=== PATIENT | female | born 1960 | race Hispanic/Latino ===

== ENCOUNTER 2016-12-27 14:53 | Inpatient (IN) | payer MEDICARE, MEDICAID ==
[2016-12-27 15:50] LABS: ADD MANUAL DIFF? NO
[2016-12-27 15:57] LABS: BASO # 0.02 K/mm3 (0.0-2.0); BASO % 0.3 % (0.0-3.0); EOS # 0.1 (0.0-0.7); EOS % 1.2 % (1.5-5.0); GRAN # 4.66 (1.4-6.5); GRAN % 76.9 % (50.0-68.0); HEMATOCRIT 46.9 % (36.0-48.0); LYMPH % 16.5 % (22.0-35.0); MEAN CELL VOLUME 98.1 fL (80.0-105.0); MEAN CORPUSCULAR HEMOGLOBIN 29.5 pg (25.0-35.0); MEAN CORPUSCULAR HGB CONC 30.1 g/dl (31.0-37.0); MEAN PLATELET VOLUME 12.2 fl (7.0-11.0); MONO # 0.3 (0.1-0.6); MONO % 5.1 % (1.0-6.0); PLATELET COUNT 256 10^3/uL (120.0-450.0); RED CELL DISTRIBUTION WIDTH 15.7 % (11.5-14.5); WHITE BLOOD COUNT 6.1 10^3/ul (4.5-11.0)
--- NOTE | 2016-12-27 16:03 | ED PDOC ---
Arrival/HPI - General Chief Complaint: High Blood Sugar Time Seen by Provider: 12/27/16 15:41 Historian: Patient - History of Present Illness Narrative History of Present Illness (Text): 12/27/16 15:46 A 56 year old female, whose past medical history includes myotonic dystrophy and diabetes, presents to the emergency department via EMS for hypoglycemia. Patient reports her blood sugar was 34 at home. She states she did have a orange juice and some peanut butter before coming to the emergency department but she did not take her insulin today. Patient currently complaining of generalized fatigue that began this morning and feel cold. She denies any chest pain, shortness of breath, abdominal pain, nausea, vomiting, or any other complaints at this time. PMD: Dr. Purdy Time/Duration: Prior to Arrival Symptom Onset: Sudden Symptom Course: Unchanged Quality: Other Activities at Onset: Rest Context: Home Past Medical History - Provider Review Nursing Documentation Reviewed: Yes - Infectious Disease Hx of Infectious Diseases: None - Tetanus Immunization Tetanus Immunization: Unknown - Reproductive Menopause: Yes - Cardiac Hx Cardiac Disorders: No - Pulmonary Hx Respiratory Disorders: Yes Hx Chronic Obstructive Pulmonary Disease (COPD): Yes - Neurological Hx Neurological Disorder: No - HEENT Hx HEENT Disorder: Yes (eyeglasses) Hx Cataracts: Yes (bilateral cataract surgery) Other/Comment: removal of macular pocket of right eye/ jaw sx - Renal Hx Renal Disorder: No - Endocrine/Metabolic Hx Endocrine Disorders: Yes Hx Diabetes Mellitus Type 2: Yes Hx Hypothyroidism: Yes - Hematological/Oncological Hx Blood Disorders: Yes Hx Anemia: Yes Hx Cancer: Yes (2011 Rectal CA) Hx Chemotherapy: Yes (2011) - Integumentary Hx Dermatological Disorder: No Hx Basal Cell Carcinoma: No Hx Eczema: No Hx Melanoma: No Hx Psoriasis: No Hx Squamous Cell Carcinoma: No Other/Comment: dry skin to feet, multiple surgical scars to abd - Musculoskeletal/Rheumatological Hx Musculoskeletal Disorders: Yes Hx Falls: Yes - Gastrointestinal Hx Gastrointestinal Disorders: Yes (RECTAL CA WAS ON CHEMO,HAD SX,PEG IN AND OUT ) - Genitourinary/Gynecological Hx Genitourinary Disorders: Yes (UTI) - Psychiatric Hx Psychophysiologic Disorder: No Hx Substance Use: No - Surgical History Hx Cholecystectomy: Yes Hx Hysterectomy: Yes (2005) - Anesthesia Hx Anesthesia Reactions: No Hx Malignant Hyperthermia: No - Suicidal Assessment Feels Threatened In Home Enviroment: No Family/Social History - Physician Review Nursing Documentation Reviewed: Yes Family/Social History: Unknown Family HX Smoking Status: Never Smoked Hx Alcohol Use: No Hx Substance Use: No Hx Substance Use Treatment: No Allergies/Home Meds Allergies/Adverse Reactions: Allergies Penicillins Allergy (Verified 08/04/16 11:24) ANGIOEDEMA Home Medications: Home Meds Medication Instructions Recorded Confirmed Albuterol Sulfate [Proair Hfa] 1 puff IH PRN PRN 04/09/15 08/11/16 Review of Systems - Physician Review All systems were reviewed & negative as marked: Yes - Review of Systems Constitutional: Fatigue, Other (feeling cold) Respiratory: absent: SOB Cardiovascular: absent: Chest Pain Gastrointestinal: absent: Abdominal Pain, Nausea, Vomiting Endocrine: Other (hypoglyemia) Physical Exam Vital Signs Reviewed: Yes Vital Signs Temp Pulse Resp BP Pulse Ox 12/27/16 17:17 66 18 120/60 100 12/27/16 15:47 96.1 F L 12/27/16 15:26 99.1 F 12/27/16 15:00 61 22 114/63 82 L Temperature: Hypothermic (96.1 rectal) Blood Pressure: Normal Pulse: Regular Respiratory Rate: Normal Appearance: Positive for: Ill-Appearing, Other Pain Distress: None Mental Status: Positive for: other (Mild-moderate lethargy but oriented x 3) Finger Stick Blood Glucose: 83 - Systems Exam Head: Present: Atraumatic, Normocephalic Pupils: Present: PERRL Conjunctiva: Present: Normal Mouth: Present: Dry Pharnyx: Present: Normal. No: ERYTHEMA, EXUDATE Neck: Present: Normal Range of Motion Respiratory/Chest: Present: Decreased Breath Sounds. No: Respiratory Distress, Accessory Muscle Use Cardiovascular: Present: Regular Rate and Rhythm, Normal S1, S2. No: Murmurs Abdomen: Present: Normal Bowel Sounds. No: Tenderness, Distention, Peritoneal Signs Back: Present: Normal Inspection Upper Extremity: Present: Normal Inspection. No: Cyanosis, Edema Lower Extremity: Present: Normal Inspection. No: Edema Neurological: Present: GCS=15, CN II-XII Intact, Speech Normal Skin: Present: Warm, Dry, Normal Color. No: Rashes Psychiatric: Present: Oriented x 3, Lethargic Medical Decision Making ED Course and Treatment: 12/27/16 15:46 Impression: A 56 year old female with generalized weakness and a low blood sugar at home Differential Diagnosis include but are not limited to: hypoglycemia vs hypothermia/sepsis Plan: -- Labs -- Urinalysis -- Reassess and disposition Prior Visits: Notes and results from previous visits were reviewed. The patient last presented to the emergency department on 08/04/16 for evaluation of hypoglycemia. Progress Notes: 12/27/16 17:44 Patient with CO2 retention on ABG. Patient placed on Bi-Pap and will need admission. Case discussed with Dr. Contreras, who is covering for Dr. Purdy. He is requesting patient be evaluated by Human Resources Receptionist. Case discussed with Dr. Dey from ICU, he states he will come down an evaluate the patient. 12/27/16 17:47 Dr. Dey evaluated the patient. He accepts the patient to ICU. 12/27/16 18:53 Patient also given steroids and nebs. 12/27/16 18:56 CXR with poor inspiration and appears similar to previous. - Critical Care Critical Care Minutes: 30 minutes - Lab Interpretations Lab Results: 12/27/16 15:30 12/27/16 15:30 Lab Results 12/27/16 16:10: pCO2 75 H*, pO2 60.0 L, HCO3 35.2 H, ABG pH 7.28 L, ABG Total CO2 37.5 H, ABG O2 Saturation 92.6 L, ABG Base Excess 5.9 H, ABG Potassium 4.9, Glucose 169 H, Lactate 2.1, FiO2 40.0, Sodium 139.0, Chloride 106.0, Arterial Blood Potassium 4.9 12/27/16 15:30: Sodium 140, Potassium 5.9 H*, Chloride 97, Carbon Dioxide 38 H, Anion Gap 11, BUN 36 H, Creatinine 0.9, Est GFR ( Amer) > 60, Est GFR ( Non-Af Amer) > 60, Random Glucose 124 H, Calcium 10.4, Total Bilirubin 0.3, AST 57 H, ALT 27, Alkaline Phosphatase 56, Lactate Dehydrogenase 341, Total Creatine Kinase < 20 L, Troponin I < 0.01, NT-Pro-B Natriuret Pep 154, Total Protein 7.0, Albumin 3.9, Globulin 3.1, Albumin/Globulin Ratio 1.3, Lipase 79 12/27/16 15:30: PT 11.0, INR 1.02, APTT 25.6 12/27/16 15:30: WBC 6.1, RBC 4.78, Hgb 14.1, Hct 46.9, MCV 98.1, MCH 29.5, MCHC 30.1 L, RDW 15.7 H, Plt Count 256, MPV 12.2 H, Gran % 76.9 H, Lymph % (Auto) 16.5 L, [place] % (Auto) 5.1, Eos % (Auto) 1.2 L, Baso % (Auto) 0.3, Gran # 4.66, Lymph # 1.0 L, [place] # 0.3, Eos # 0.1, Baso # 0.02 I have reviewed the lab results: Yes - Medication Orders Current Medication Orders: Sodium Chloride (Sodium Chloride 0.9%) 1,000 mls @ 100 mls/hr IV .Q10H STA Stop: 12/28/16 02:49 Last Admin: 12/27/16 17:17 Dose: 100 mls/hr Discontinued Medications Ipratropium [place] (Atrovent) 0.5 mg IH STAT STA Stop: 12/27/16 17:43 Last Admin: 12/27/16 18:25 Dose: 0.5 mg Ipratropium [place] (Atrovent) 0.5 mg IH STAT STA Stop: 12/27/16 17:44 Last Admin: 12/27/16 18:36 Dose: 0.5 mg Levalbuterol HCl (Xopenex) 1.25 mg IH STAT STA Stop: 12/27/16 17:43 Last Admin: 12/27/16 18:11 Dose: 1.25 mg Levalbuterol HCl (Xopenex) 1.25 mg IH STAT STA Stop: 12/27/16 17:43 Last Admin: 12/27/16 18:00 Dose: 1.25 mg Methylprednisolone (Solu-Medrol) 125 mg IVP STAT STA Stop: 12/27/16 17:44 Last Admin: 12/27/16 18:12 Dose: 125 mg Sodium Polystyrene Sulfonate (Kayexalate Oral Susp) 30 gm PO STAT STA Stop: 12/27/16 16:51 Last Admin: 12/27/16 17:12 Dose: 30 gm - Scribe Statement The provider has reviewed the documentation as recorded by the Scribe Dimpal Nguyen Provider Kurtis Attestation: All medical record entries made by the Kurtis were at my direction and personally dictated by me. I have reviewed the chart and agree that the record accurately reflects my personal performance of the history, physical exam, medical decision making, and the department course for this patient. I have also personally directed, reviewed, and agree with the discharge instructions and disposition. Disposition/Present on Arrival - Present on Arrival Any Indicators Present on Arrival: No History of DVT/PE: No History of Uncontrolled Diabetes: No Urinary Catheter: No History of Decub. Ulcer: No History Surgical Site Infection Following: None - Disposition Have Diagnosis and Disposition been Completed?: Yes Diagnosis: CO2 retention, Altered mental status Disposition: HOSPITALIZED Disposition Time: 17:48 Patient Plan: Admission, ICU Condition: SERIOUS
[2016-12-27 16:07] LABS: INR 1.02 (0.93-1.08); PARTIAL THROMBOPLASTIN TIME 25.6 Seconds (23.7-30.8)
[2016-12-27 16:29] LABS: ARTERIAL BLOOD GAS HCO3 35.2 mmol/L (21-28); ARTERIAL BLOOD GAS PH 7.28 (7.35-7.45)
[2016-12-27 16:41] LABS: ALB/GLOB RATIO 1.3 (1.1-1.8); ALKALINE PHOSPHATASE 56 U/L (38-133); ALT/SGPT 27 U/L (7-56); AST/SGOT 57 U/L (15-39); BILIRUBIN,TOTAL 0.3 mg/dL (0.2-1.3); BLOOD UREA NITROGEN 36 mg/dL (7-21); CALCIUM 10.4 mg/dL (8.4-10.5); CARBON DIOXIDE 38 mmol/L (21-33); CHLORIDE 97 mmol/L (95-110); GFR AFRICAN-AMERICAN > 60; GLUCOSE,RANDOM 124 mg/dL (70-110); LIPASE 79 U/L (23-300); SODIUM 140 mmol/L (132-148)
[2016-12-27 16:49] LABS: POTASSIUM 5.9 mmol/L (3.6-5.0)
[2016-12-27] MEDS ORDERED: Sod Polystyrene Sulf 15 gm/60 ml Oral Susp PO STA (16:50)
[2016-12-27] MEDS ORDERED: Sodium Chloride 0.9% 1,000 ML IV STA (16:50)
[2016-12-27 17:10] LABS: TROPONIN I < 0.01 ng/mL
[2016-12-27] MEDS ORDERED: Levalbuterol 1.25 MG/3 ML Inhal Soln UD IH STA ×2 (17:42)
[2016-12-27] MEDS ORDERED: Ipratropium 0.02% Inhal Soln (0.5 mg/2.5 ml) UD IH STA ×2 (17:42→17:43)
[2016-12-27] MEDS ORDERED: Albuterol-Ipratrop 3 mg / 0.5 (3 ml) UD IH PRN (20:55)
[2016-12-27 21:20] VITALS: BMI 27.9
--- NOTE | 2016-12-27 21:43 | CP.PCM.HP ---
<Kaushik Penaloza - Last Filed: 12/27/16 22:47> History of Present Illness - History of Present Illness History of Present Illness: 56 year old female with past medical history of mytonic dysthrophy type 1, diabetes, COPD, hypothyroidism, and rectal cancer s/p resection and chemo presents to [facility] ED via EMS for hypoglycemia, generalized fatigue and feeling cold. Patient reports her blood sugar to be 34 at home this morning. She soon gave herself orange juice and peanut butter. Patients states around 2pm this afternoon, she had to put on 4 layers of blanket because she was feeling cold. In the ED patient was found to be hypercarbic on ABG (pCO2 75) and potassium of 5.9. Patient was soon started on BIBPAP and given kayexalate. Patient was last hospitalized on 08/04/16 for hypoglycemia, bacteremia and UTI. Patient uses BIPAP machine at night time and is wheelchair bound at home. Patient denies having headache, loss of consciousness, fever, shortness of breath, coughs, chest pain, palpitations, abdominal pain, nausea, vomiting, diarrhea, or urinary symptoms. PMD: Dr. Purdy PMH: mytonic dysthrophy type 1, diabetes, COPD, hypothyroidism, rectal cancer PSH: trach placement, peg placement, ileostomy, ileostomy reversal and anastomosis Allergy: Penicillin Social Hx: Denies tobacco, alcohol or other drug use Family Hx: unknown Meds: levemir, pulmicort, proair Hfa Present on Admission - Present on Admission Any Indicators Present on Admission: No History of DVT/PE: No History of Uncontrolled Diabetes: No Review of Systems - Constitutional Constitutional: As Per HPI, Chills, Fatigue. absent: Headache - EENT Eyes: As Per HPI. absent: Blurred Vision, Change in Vision, Loss of Vision Ears: As Per HPI. absent: Dizziness Nose/Mouth/Throat: As Per HPI. absent: Epistaxis - Cardiovascular Cardiovascular: As Per HPI. absent: Chest Pain, Chest Pain at Rest, Chest Pain with Activity, Diaphoresis, Dyspnea - Respiratory Respiratory: As Per HPI. absent: Cough, Dyspnea, Hemoptysis - Gastrointestinal Gastrointestinal: As Per HPI. absent: Abdominal Pain, Diarrhea, Nausea, Vomiting - Genitourinary Genitourinary: As Per HPI - Musculoskeletal Musculoskeletal: As Per HPI. absent: Back Pain, Deformity, Numbness, Tingling - Integumentary Integumentary: As Per HPI. absent: Acne, Lesions - Neurological Neurological: As Per HPI, Weakness. absent: Abnormal Speech, Headaches, Vertigo - Psychiatric Psychiatric: As Per HPI. absent: Confusion, Irritability - Endocrine Endocrine: As Per HPI, Cold Intolorance, Fatigue Additional Comments: hypoglycemia - Hematologic/Lymphatic Hematologic: As Per HPI Past Patient History - Infectious Disease Hx of Infectious Diseases: None - Tetanus Immunizations Tetanus Immunization: Unknown - Past Social History Smoking Status: Never Smoked - CARDIAC Hx Cardiac Disorders: No - PULMONARY Hx Respiratory Disorders: Yes Hx Chronic Obstructive Pulmonary Disease (COPD): Yes - NEUROLOGICAL Hx Neurological Disorder: No - HEENT Hx HEENT Problems: Yes (eyeglasses) Hx Cataracts: Yes (bilateral cataract surgery) Other/Comment: removal of macular pocket of right eye/ jaw sx - RENAL Hx Chronic Kidney Disease: No - ENDOCRINE/METABOLIC Hx Endocrine Disorders: Yes Hx Diabetes Mellitus Type 2: Yes Hx Hypothyroidism: Yes - HEMATOLOGICAL/ONCOLOGICAL Hx Blood Disorders: Yes Hx Anemia: Yes Hx Cancer: Yes (2011 Rectal CA) Hx Chemotherapy: Yes (2011) - INTEGUMENTARY Hx Dermatological Problems: No Hx Basil Cell: No Hx Eczema: No Hx Melanoma: No Hx Psoriasis: No Hx Squamous Cell: No Other/Comment: dry skin to feet, multiple surgical scars to abd - MUSCULOSKELETAL/RHEUMATOLOGICAL Hx Musculoskeletal Disorders: Yes Hx Falls: Yes - GASTROINTESTINAL Hx Gastrointestinal Disorders: Yes (RECTAL CA WAS ON CHEMO,HAD SX,PEG IN AND OUT ) - GENITOURINARY/GYNECOLOGICAL Hx Genitourinary Disorders: Yes (UTI) - PSYCHIATRIC Hx Psychophysiologic Disorder: No Hx Substance Use: No - SURGICAL HISTORY Hx Cholecystectomy: Yes Hx Hysterectomy: Yes (2005) - ANESTHESIA Hx Anesthesia Reactions: No Hx Malignant Hyperthermia: No Meds Allergies/Adverse Reactions: Allergies Allergy/AdvReac Type Severity Reaction Status Date / Time Penicillins Allergy ANGIOEDEMA Verified 08/04/16 11:24 Physical Exam - Constitutional Appears: No Acute Distress, Chronically Ill - Head Exam Head Exam: ATRAUMATIC, NORMOCEPHALIC - Eye Exam Eye Exam: EOMI, Normal appearance, PERRL - ENT Exam ENT Exam: Mucous Membranes Moist - Neck Exam Neck exam: Positive for: Normal Inspection - Respiratory Exam Respiratory Exam: Clear to Auscultation Bilateral, NORMAL BREATHING PATTERN. absent: Wheezes, Respiratory Distress - Cardiovascular Exam Cardiovascular Exam: REGULAR RHYTHM, RRR, +S1, +S2 - GI/Abdominal Exam GI & Abdominal Exam: Normal Bowel Sounds, Soft. absent: Tenderness - Extremities Exam Extremities exam: Positive for: normal capillary refill, normal inspection, pedal pulses present. Negative for: tenderness - Back Exam Back exam: NORMAL INSPECTION - Neurological Exam Neurological exam: Alert, Oriented x3 - Psychiatric Exam Psychiatric exam: Normal Affect, Normal Mood - Skin Skin Exam: Dry, Intact, Normal Color Additional comments: cool to touch Results - Vital Signs Recent Vital Signs: Last Vital Signs Temp 96.1 F L 12/27/16 15:47 Pulse 67 12/27/16 20:30 Resp 18 12/27/16 17:17 BP 120/60 12/27/16 17:17 Pulse Ox 100 12/27/16 17:17 - Labs Result Diagrams: 12/27/16 15:30 12/27/16 15:30 Assessment & Plan - Assessment and Plan (Free Text) Assessment: 56 year old female with past medical history of myotonic dystrohpy, diabetes, COPD presents with hypoglycemia, generalized fatigue and feeling cold was admitted to ICU for hypercapnic respiratory failure secondary to COPD exacerbation Plan: Hypercarbic respiratory failure -Secondary to COPD exacerbation vs sepsis -ABG 7.28/75/60/35.2/12.1/92.6 -Continue BIPAP -Duoneb 3ml IH Q4 damien/Q2 prn -Solu-medrol 40mg Q8 -Resume pulmicort 0.5mg BID -Levaquin 500mg iv daily -CXR grossly unchanged from previous -Follow up blood, urine cultures -Follow up procalcintonin -Follow up ABG repeats -Pulmonary consult, Dr. Leyva help appreciated Hypoglycemia -Patient self reported FS glucose 34 at home -Random glucose at ED 124 -Continue to monitor Hyperkalemia -Potassium 5.9 -Kayexalate 30gm given in ED -Duoneb 3ml IH Q4 damien/Q2 prn Diabetes -Resume levemir HS, hold if hypoglycemia persists -ISS -FS Q4 -Consistent Carb diet Prophylactic measures -Protonix for GI ppx -Lovenox for DVT ppx <Brittany ALEXANDER,Soham - Last Filed: 01/04/17 06:28> Results - Vital Signs Recent Vital Signs: Last Vital Signs Temp 97 F L 01/01/17 15:53 Pulse 70 01/01/17 15:53 Resp 18 01/01/17 15:53 BP 103/73 01/01/17 15:53 Pulse Ox 95 01/01/17 15:53 - Labs Result Diagrams: 01/01/17 06:00 01/01/17 06:00 Attending/Attestation - Attestation I have personally seen and examined this patient.: Yes I have fully participated in the care of the patient.: Yes I have reviewed all pertinent clinical information: Yes Notes (Text): 01/04/17 06:27 -I agree with the above consult H&P completed by the resident physician.
[2016-12-27] MEDS: Insulin Detemir 100 units/ml Vial (Levemir) SC SCH (22:00)
[2016-12-27] MEDS: MethylPREDNISolone 40 mg Vial IVP SCH (22:01)
[2016-12-27 22:03] LABS: VENOUS BLOOD GAS BASE EXCESS 12.1 mmol/L (0.0-2.0); VENOUS BLOOD PH 7.39 (7.32-7.43)
[2016-12-28 00:56] LABS: URINE BILIRUBIN NEGATIVE (NEGATIVE); URINE BLOOD NEGATIVE (NEGATIVE); URINE GLUCOSE (UA) >=1000 mg/dL (NEGATIVE); URINE KETONE NEGATIVE (NEGATIVE); URINE LEUKOCYTE ESTERASE LARGE Leu/uL (NEGATIVE); URINE PROTEIN NEGATIVE mg/dL (<30 mg/dL); URINE UROBILINOGEN 0.2 E.U./dL (<1 E.U./dL)
[2016-12-28 01:04] LABS: URINE APPEARANCE CLOUDY (CLEAR); URINE COLOR YELLOW (YELLOW)
[2016-12-28 01:06] LABS: URINE BACTERIA MANY (NEG); URINE EPITHELIAL CELLS 0 - 2 /hpf (0-5); URINE RBC 0 - 2 /hpf (0-2); URINE WBC 20 - 25 /hpf (0-6)
[2016-12-28] MEDS: Albuterol-Ipratrop 3 mg / 0.5 (3 ml) UD IH SCH ×6 (04:40→20:05)
[2016-12-28] MEDS: Pantoprazole 40 mg EC Tab PO SCH (05:47)
[2016-12-28] MEDS: MethylPREDNISolone 40 mg Vial IVP SCH ×3 (05:47→22:09)
[2016-12-28 06:31] LABS: ARTERIAL BLOOD GAS HCO3 34.5 mmol/L (21-28); ARTERIAL BLOOD GAS O2 CAPACITY 15.8 mL/dl (16-24); ARTERIAL BLOOD GAS PH 7.36 (7.35-7.45); ARTERIAL BLOOD HGB O2 SAT 92.4 % (95.0-98.0); CARBOXYHEMOGLOBIN 1.4 % (0.5-1.5); METHEMOGLOBIN 1.1 % (0.0-3.0)
[2016-12-28 06:32] LABS: ADD MANUAL DIFF? NO
[2016-12-28 06:46] LABS: BASO # 0.01 K/mm3 (0.0-2.0); BASO % 0.2 % (0.0-3.0); GRAN % 87.1 % (50.0-68.0); HEMATOCRIT 42.1 % (36.0-48.0); LYMPH # 0.7 (1.2-3.4); LYMPH % 12.3 % (22.0-35.0); MEAN CELL VOLUME 97.2 fL (80.0-105.0); MEAN CORPUSCULAR HEMOGLOBIN 29.6 pg (25.0-35.0); MEAN CORPUSCULAR HGB CONC 30.4 g/dl (31.0-37.0); MEAN PLATELET VOLUME 12.3 fl (7.0-11.0); MONO % 0.4 % (1.0-6.0); PLATELET COUNT 266 10^3/uL (120.0-450.0); RED CELL DISTRIBUTION WIDTH 15.6 % (11.5-14.5); WHITE BLOOD COUNT 5.3 10^3/ul (4.5-11.0)
[2016-12-28 07:26] LABS: ALB/GLOB RATIO 1.1 (1.1-1.8); ALKALINE PHOSPHATASE 47 U/L (38-133); ALT/SGPT 30 U/L (7-56); AST/SGOT 53 U/L (15-39); BILIRUBIN,TOTAL 0.3 mg/dL (0.2-1.3); BLOOD UREA NITROGEN 27 mg/dL (7-21); CALCIUM 9.3 mg/dL (8.4-10.5); CARBON DIOXIDE 37 mmol/L (21-33); CHLORIDE 99 mmol/L (98-107); GFR AFRICAN-AMERICAN > 60; GLUCOSE,RANDOM 262 mg/dL (70-110); POTASSIUM 4.9 mmol/L (3.6-5.0); SODIUM 141 mmol/L (132-148); TOTAL PROTEIN 6.2 g/dL (5.8-8.3)
[2016-12-28] MEDS: Budesonide 0.5 mg/2 ml Inhal Susp UD IH SCH ×2 (07:50→20:05)
[2016-12-28] MEDS: levoFLOXacin 500 mg in D5W 500 MG/100 ML BAG IVPB SCH (09:55)
[2016-12-28] MEDS: Enoxaparin 40 mg Syringe SC SCH (09:55)
[2016-12-28] MEDS: Insulin Lispro (humaLOG) MEDIUM Coverage SC SCH ×4 (09:59→22:08)
--- NOTE | 2016-12-28 10:54 | RAD ---
HISTORY: alt ms COMPARISON: 08/10/2016 FINDINGS: LUNGS: Bibasilar linear atelectasis. Small lung volumes with elevation of the right hemidiaphragm PLEURA: No significant pleural effusion identified, no pneumothorax apparent. CARDIOVASCULAR: Normal. OSSEOUS STRUCTURES: No significant abnormalities. VISUALIZED UPPER ABDOMEN: Normal. OTHER FINDINGS: None. IMPRESSION: Linear atelectasis both lung bases
--- NOTE | 2016-12-28 11:07 | CARD ---
APPROVED REPORT EKG Measurement Heart [id number] <Conclusion> Sinus bradycardia with 1st degree AV block Anterolateral infarct, age undetermined Abnormal ECG
--- NOTE | 2016-12-28 11:57 | CON ---
DATE: 12/28/2016 We were asked by Dr. Purdy, game artist, to evaluate and treat this 56-year- old woman who is well known to our service from previous admissions with complex pulmonary problems. HISTORY OF PRESENT ILLNESS: The patient was admitted via Emergency Room and we are seeing her in the intensive care unit. The patient reported very low blood sugar of 34 at home in the morning. She was getting orange juice. That was followed by severe shaking chills. She was brought to the Emergency Room. She was hypercarbic with pCO2 of 75 and potassium of 5.9. She was started on BiPAP and was given Kayexalate. The patient was last hospitalized 4 months ago for hypoglycemia, bacteremia and urinary tract infection. She uses BiPAP machine at night. PAST MEDICAL HISTORY: Positive for myotonic dystrophy, type 1 diabetes, chronic obstructive pulmonary disease, hypothyroidism, and rectal cancer, status post resection and chemotherapy. FAMILY HISTORY: Negative for inherited diseases. SOCIAL HISTORY: She is a former smoker. Nondrinker. Never used illicit drugs. ALLERGIES: SHE REPORTS ALLERGY TO PENICILLIN WITH ANGIOEDEMA. REVIEW OF SYSTEMS: Conducted by reviewing all sources. EAR, NOSE, AND THROAT: No dizziness, no blurred vision, no epistaxis. CARDIOVASCULAR: No chest pain, no palpitations. RESPIRATORY: As per history of present illness. GASTROINTESTINAL: No nausea, vomiting or diarrhea. GENITOURINARY: No dysuria or hematuria. The rest of the systems were reviewed and found to be negative. PHYSICAL EXAMINATION: GENERAL: She is awake, alert, in no acute distress. VITAL SIGNS: Stable. Blood pressure 112/74, respirations 18, pulse is 84, oxygen saturation currently on nasal cannula is 95%. HEAD, EARS, NOSE AND THROAT: Normocephalic and atraumatic. Mucous membranes moist. LUNGS: Diminished breath sounds with a few coarse rhonchi, no wheezing. CARDIOVASCULAR: S1, S2, no S3, regular. GASTROINTESTINAL: Soft, nontender with no organomegaly. : Within normal limits EXTREMITIES: No pedal edema. SKIN: Clear with no cyanosis, no skin rashes. NEUROLOGIC: No focal deficits. LABORATORY DATA: I reviewed arterial blood gases which revealed acute on chronic respiratory acidosis with pH of 7.28, pCO2 of 75 and pO2 of 60. RADIOLOGY: I also reviewed her chest x-ray which is unchanged from previous admission. ASSESSMENT AND PLAN: COPD, Resp Insufficiency, Hypoglycemia. The patient was started on BiPAP. DuoNeb inhalations every 4 hours were added. We will treat with Brovana and budesonide by inhalations later after DuoNeb worked. The patient will be treated for her severe hypoglycemia. She probably will be able to leave intensive care unit today or tomorrow in a.m. Nayan Disla MD cc: [id number] TT: 12/28/2016 11:56:33 Confirmation # [id number] Dictation # [id number] tn MTDD
[2016-12-28] MEDS: Insulin Detemir 100 units/ml Vial (Levemir) SC SCH (22:08)
[2016-12-29] MEDS: Albuterol-Ipratrop 3 mg / 0.5 (3 ml) UD IH SCH ×6 (00:26→23:59)
--- NOTE | 2016-12-29 01:39 | CON ---
DATE: 12/28/2016 HISTORY OF PRESENT ILLNESS: The patient is a 56-year-old lady with history of type 1 myotonic dystrophy, and COPD, who presented with acute respiratory acidosis and CO2 retention, as well as hypoglycemia. The patient was started on nebulizers, steroids, and antibiotics. Her hypoglycemia was corrected. ICU was consulted for further management and monitoring. No nausea. No vomiting. No diarrhea. No constipation. PAST MEDICAL HISTORY: Myotonic dystrophy, type 1. Diabetes. Chronic obstructive pulmonary disease. Hypothyroidism. History of rectal cancer status post resection and chemotherapy. FAMILY HISTORY: Noncontributory. SOCIAL HISTORY: The patient is an ex-smoker. No alcohol. No illicit drug abuse. REVIEW OF SYSTEMS: Review of 12-organ system, other than mentioned in history of present illness, is negative. ALLERGIES: PENICILLINS. PHYSICAL EXAMINATION: VITAL SIGNS: Temperature 97.7, blood pressure 99/61, respiratory rate 20, oxygen saturation 94% on room air. HEAD AND NECK: Atraumatic. LUNGS: Clear to auscultation bilaterally. HEART: Regular rate any rhythm. S1, S2 normal. ABDOMEN: Soft, nontender, nondistended. MUSCULOSKELETAL: Consistent with myotonic dystrophy. SKIN: Moist. PSYCHIATRIC: The patient is alert and oriented x 3. LABORATORY DATA: WBC 5.3, hemoglobin 12.8, platelet count 266. Sodium 141, potassium 4.9, chloride 99, BUN 27, creatinine 0.8, glucose 268. Procalcitonin less than 0.05. Initial blood gas was 7.28, pCO2 75, pO2 60. Today's blood gas 7.36, pCO2 61 and pO2 63. MEDICATIONS: Tylenol p.r.n., DuoNeb p.r.n. and every 4 hours, Pulmicort, Lovenox, Levemir, regular insulin sliding scale medium protocol, levofloxacin, Solu-Medrol 40 mg IV q. 8, Protonix. Chest x-ray showed right lower lobe infiltrate/atelectasis. ASSESSMENT AND PLAN: This is a 56-year-old lady, who presented with chronic obstructive pulmonary disease exacerbation, acute respiratory acidosis, and CO2 retention. She substantially improved on steroid taper, nebulizers, antibiotics , and BiPAP application. At present time, she is alert, awake, and oriented x 3. I will continue to maintain euvolemia, euglycemia, normothermia, and oxygen saturation more than 90 %. We will continue with deep venous thrombosis and gastrointestinal prophylaxis. ccm time 40 min Lisandro Dey MD cc: [id number] TT: 12/29/2016 01:38:10 Confirmation # [id number] Dictation # [id number] tn MTDD
[2016-12-29] MEDS: Pantoprazole 40 mg EC Tab PO SCH (06:32)
[2016-12-29 06:52] LABS: ADD MANUAL DIFF? NO
[2016-12-29 07:02] LABS: GRAN # 5.68 (1.4-6.5); GRAN % 86.9 % (50.0-68.0); HEMATOCRIT 39.3 % (36.0-48.0); LYMPH # 0.7 (1.2-3.4); LYMPH % 10.3 % (22.0-35.0); MEAN CELL VOLUME 96.8 fL (80.0-105.0); MEAN CORPUSCULAR HEMOGLOBIN 29.1 pg (25.0-35.0); MEAN PLATELET VOLUME 12.1 fl (7.0-11.0); MONO # 0.2 (0.1-0.6); MONO % 2.8 % (1.0-6.0); PLATELET COUNT 247 10^3/uL (120.0-450.0); RED CELL DISTRIBUTION WIDTH 15.9 % (11.5-14.5); WHITE BLOOD COUNT 6.5 10^3/ul (4.5-11.0)
[2016-12-29 07:10] LABS: ALB/GLOB RATIO 1.2 (1.1-1.8); ALKALINE PHOSPHATASE 45 U/L (38-133); ALT/SGPT 32 U/L (7-56); AST/SGOT 43 U/L (15-39); BILIRUBIN,TOTAL 0.3 mg/dL (0.2-1.3); BLOOD UREA NITROGEN 39 mg/dL (7-21); CALCIUM 9.4 mg/dL (8.4-10.5); CARBON DIOXIDE 33 mmol/L (21-33); CHLORIDE 99 mmol/L (98-107); GFR AFRICAN-AMERICAN > 60; SODIUM 139 mmol/L (132-148)
[2016-12-29 07:18] LABS: GLUCOSE,RANDOM 339 mg/dL (70-110)
[2016-12-29] MEDS: Budesonide 0.5 mg/2 ml Inhal Susp UD IH SCH ×2 (07:30→20:37)
[2016-12-29] MEDS: Insulin Lispro (humaLOG) MEDIUM Coverage SC SCH ×4 (08:18→22:12)
--- NOTE | 2016-12-29 08:44 | PN ---
DATE: 12/29/2016 SUBJECTIVE: The patient appears comfortable this morning. She is not short of breath at rest. PHYSICAL EXAMINATION: VITAL SIGNS (last noted in the computer): Temperature is 97.7, pulse is 77, respirations 20, blood pressure 99/61. Oxygen saturation on nasal cannula is 94 %. HEENT: Normocephalic, atraumatic. No JVD. CARDIOVASCULAR: Positive S1, S2. No S3. LUNGS: Decreased breath sounds at the bases. Minimal rhonchi. No wheezing. EXTREMITIES: Mild edema. No cyanosis, no clubbing. Calves are nontender to palpation. GASTROINTESTINAL: Abdomen is soft, nontender, nondistended. Bowel sounds are positive. SKIN: No acute rash. NEUROLOGIC: Limited at the present time. IMPRESSION: 1. Acute bronchitis. 2. Chronic obstructive pulmonary disease. 3. Myotonic dystrophy. 4. Chronic respiratory insufficiency. PLAN: The patient appears comfortable this morning. She is not short of breath at rest. She is awake and alert. She states she is feeling much better overall. I did discuss the case with the night nurse at length. The night nurse stated that the patient had a good night, and did wear her BiPAP for 6 hours. I commended the patient on her usage. On physical exam, no significant bronchospasm is noted. I will continue with the current nebulizer treatments and decrease the intravenous steroids this morning. The patient also remains on antibiotic therapy. There are no temperatures noted. There is no leukocytosis. Clinical status of the patient is certainly improved - compared to the initial presentation. However, the overall status/prognosis for this patient - with advanced myotonic dystrophy - does remain very guarded. I will discuss the above with the attending physician. Adam Leyva MD cc: [id number] TT: 12/29/2016 08:44:03 Confirmation # [id number] Dictation # [id number] sarah DELAROSA
[2016-12-29] MEDS: levoFLOXacin 500 mg in D5W 500 MG/100 ML BAG IVPB SCH (10:04)
[2016-12-29] MEDS: Enoxaparin 40 mg Syringe SC SCH (10:04)
[2016-12-29] MEDS: MethylPREDNISolone 40 mg Vial IVP SCH ×2 (10:05→21:57)
--- NOTE | 2016-12-29 13:06 | CP.PCM.PN ---
<Valerie Peters - Last Filed: 12/29/16 17:37> Subjective - Date & Time of Evaluation Date of Evaluation: 12/29/16 Time of Evaluation: 07:20 - Subjective Subjective: Medicien progress note for Dr Purdy and Dr Samson service. Patient with no acute events overnight,. Transferred from ICU. Used bipap at night. Denies fever, chills, n/v/d. Denies cp or sob. Objective - Vital Signs/Intake and Output Vital Signs (last 24 hours): Temp Pulse Resp BP Pulse Ox 97 F L 66 20 106/64 94 L 12/29/16 08:55 12/29/16 08:55 12/29/16 08:55 12/29/16 08:55 12/29/16 08:55 Intake and Output: 12/29/16 12/29/16 06:59 18:59 Intake Total 720 Balance 720 - Medications Medications: Current Medications Acetaminophen (Tylenol 325mg Tab) 650 mg PO Q4H PRN PRN Reason: Fever >100.4 F Albuterol/Ipratropium (Duoneb 3 Mg/0.5 Mg (3 Ml) Ud) 3 ml IH [id number] PENDING SALE TO [facility] Last Admin: 12/29/16 11:30 Dose: 3 ml Albuterol/Ipratropium (Duoneb 3 Mg/0.5 Mg (3 Ml) Ud) 3 ml IH Q2H PRN PRN Reason: Shortness of Breath Budesonide (Pulmicort Respules) 0.5 mg IH BIDRESP PENDING SALE TO [facility] Last Admin: 12/29/16 07:30 Dose: 0.5 mg Enoxaparin Sodium (Lovenox) 40 mg SC DAILY G[facility]E PRN Reason: Protocol Last Admin: 12/29/16 10:04 Dose: 40 mg Levofloxacin/Dextrose (Levaquin 500mg) 500 mg in 100 mls @ 100 mls/hr IVPB DAILY [facility] Last Admin: 12/29/16 10:04 Dose: 100 mls/hr Insulin Detemir (Levemir) 20 unit SC HS PENDING [facility] Last Admin: 12/28/16 22:08 Dose: 20 unit Insulin Human Lispro (Humalog Med) 0 units SC ACHS PENDING S[facility] TO [facility] PRN Reason: Protocol Last Admin: 12/29/16 12:10 Dose: 5 units Methylprednisolone (Solu-Medrol) 40 mg IVP Q12 PENDING [facility] Last Admin: 12/29/16 10:05 Dose: 40 mg Pantoprazole Sodium (Protonix Ec Tab) 40 mg PO 0630 PENDING [facility] Last Admin: 12/29/16 06:32 Dose: 40 mg - Labs Labs: 12/29/16 06:30 12/29/16 06:30 PT 11.0 Seconds (9.9-11.8) 12/27/16 15:30 INR 1.02 (0.93-1.08) 12/27/16 15:30 APTT 25.6 Seconds (23.7-30.8) 12/27/16 15:30 - Constitutional Appears: No Acute Distress, Older Than Stated Age, Chronically Ill - Head Exam Head Exam: ATRAUMATIC, NORMAL INSPECTION, NORMOCEPHALIC - Eye Exam Eye Exam: EOMI, Normal appearance, PERRL. absent: Scleral icterus - ENT Exam ENT Exam: Mucous Membranes Moist - Neck Exam Neck Exam: Normal Inspection - Respiratory Exam Respiratory Exam: Wheezes, NORMAL BREATHING PATTERN. absent: Rales, Rhonchi, Respiratory Distress, Stridor - Cardiovascular Exam Cardiovascular Exam: REGULAR RHYTHM, +S1, +S2. absent: Murmur - GI/Abdominal Exam GI & Abdominal Exam: Soft, Normal Bowel Sounds. absent: Distended, Firm, Guarding, Rigid, Tenderness - Extremities Exam Extremities Exam: Normal Inspection - Back Exam Back Exam: NORMAL INSPECTION - Neurological Exam Neurological Exam: Alert, Awake, Oriented x3 - Psychiatric Exam Psychiatric exam: Normal Affect, Normal Mood - Skin Skin Exam: Dry, Intact, Normal Color, Warm Assessment and Plan - Assessment and Plan (Free Text) Assessment: Patient is a 56 y/o with pmh of mytonic dysthrophy type 1, diabetes, COPD, hypothyroidism, and rectal cancer s/p resection and chemo presented with confution secondary to hypoglycemia, and was found to be in respiratory distress 2nd to hypercapneic respiratory failure. Patient was monitored in icu for 24 hrs on bipap, and is currently on med surge Plan: 1) COPD exacerbation - continue bipap at night - continue duoneb standing dose and prn - on solumedrol q12, and pulmcort. - on levaquin - pulm following 2) UTI - UCX growing gram negative rods, pending - bcx so far no growth. - no fever, no wbc. - on antibiotics as above 3) Hyperkalemia- resolved, will monitor 4) Uncontrolled IDDM2 - Continue levemir 20 units - ISS - Carb controlled diet - hgba1c 7.7 5) DVT and gi prophylaxis: Lovenox sc, and protonix. Patient seen, examined, case discussed with Dr Samson. <Jayro Samson - Last Filed: 01/18/17 19:25> Objective - Vital Signs/Intake and Output Vital Signs (last 24 hours): Temp Pulse Resp BP Pulse Ox 97 F L 70 18 103/73 95 01/01/17 15:53 01/01/17 15:53 01/01/17 15:53 01/01/17 15:53 01/01/17 15:53 - Labs Labs: 01/01/17 06:00 01/01/17 06:00 PT 11.0 Seconds (9.9-11.8) 12/27/16 15:30 INR 1.02 (0.93-1.08) 12/27/16 15:30 APTT 25.6 Seconds (23.7-30.8) 12/27/16 15:30 Attending/Attestation - Attestation I have personally seen and examined this patient.: Yes I have fully participated in the care of the patient.: Yes I have reviewed all pertinent clinical information, including history, physical exam and plan: Yes Notes (Text): 01/18/17 19:25 Medical record note made by the resident after discussion with my direction and input after the patient was personally seen and examined by me. I have reviewed the chart and agree that the record accurately reflects by personal performance of the history, physical exam, data review, and medical decision-making, in the course for the patient. I have also personally directed the plan of care.
[2016-12-29] MEDS: Insulin Detemir 100 units/ml Vial (Levemir) SC SCH (22:13)
[2016-12-30] MEDS: Albuterol-Ipratrop 3 mg / 0.5 (3 ml) UD IH SCH ×4 (04:49→21:00)
[2016-12-30] MEDS: Pantoprazole 40 mg EC Tab PO SCH (05:58)
--- NOTE | 2016-12-30 06:42 | CP.PCM.PN ---
<Valerie Peters - Last Filed: 12/30/16 22:04> Subjective - Date & Time of Evaluation Date of Evaluation: 12/30/16 Time of Evaluation: 07:00 - Subjective Subjective: Medicine progress note for Dr Purdy and Dr Samson service. Patient feeling better. Denies cp, sob, n/v/d. Wheezing has resolved. a$ox3. Objective - Vital Signs/Intake and Output Vital Signs (last 24 hours): Temp Pulse Resp BP Pulse Ox 97.8 F 68 20 96/62 L 92 L 12/29/16 16:30 12/30/16 00:08 12/29/16 16:30 12/29/16 16:30 12/29/16 16:30 Intake and Output: 12/29/16 12/30/16 18:59 06:59 Intake Total 820 Balance 820 - Medications Medications: Current Medications Acetaminophen (Tylenol 325mg Tab) 650 mg PO Q4H PRN PRN Reason: Fever >100.4 F Albuterol/Ipratropium (Duoneb 3 Mg/0.5 Mg (3 Ml) Ud) 3 ml IH [id number] [facility] Last Admin: 12/30/16 04:49 Dose: 3 ml Albuterol/Ipratropium (Duoneb 3 Mg/0.5 Mg (3 Ml) Ud) 3 ml IH Q2H PRN PRN Reason: Shortness of Breath Budesonide (Pulmicort Respules) 0.5 mg IH BIDRESP [facility] Last Admin: 12/29/16 20:37 Dose: 0.5 mg Enoxaparin Sodium (Lovenox) 40 mg SC DAILY [facility] PRN Reason: Protocol Last Admin: 12/29/16 10:04 Dose: 40 mg Levofloxacin/Dextrose (Levaquin 500mg) 500 mg in 100 mls @ 100 mls/hr IVPB DAILY [facility] Last Admin: 12/29/16 10:04 Dose: 100 mls/hr Insulin Detemir (Levemir) 20 unit SC HS [facility] Last Admin: 12/29/16 22:13 Dose: 20 unit Insulin Human Lispro (Humalog Med) 0 units SC ACHS [facility]AB[facility] PRN Reason: Protocol Last Admin: 12/29/16 22:12 Dose: Not Given Methylprednisolone (Solu-Medrol) 40 mg IVP Q12 [facility] Last Admin: 12/29/16 21:57 Dose: 40 mg Pantoprazole Sodium (Protonix Ec Tab) 40 mg PO 0630 [facility] Last Admin: 12/30/16 05:58 Dose: 40 mg - Labs Labs: 12/29/16 06:30 12/29/16 06:30 PT 11.0 Seconds (9.9-11.8) 12/27/16 15:30 INR 1.02 (0.93-1.08) 12/27/16 15:30 APTT 25.6 Seconds (23.7-30.8) 12/27/16 15:30 - Constitutional Appears: No Acute Distress, Cachectic, Chronically Ill - Head Exam Head Exam: ATRAUMATIC, NORMAL INSPECTION, NORMOCEPHALIC - Eye Exam Eye Exam: Normal appearance, Scleral icterus - ENT Exam ENT Exam: Mucous Membranes Moist - Neck Exam Neck Exam: Normal Inspection - Respiratory Exam Respiratory Exam: Clear to Ausculation Bilateral, NORMAL BREATHING PATTERN. absent: Rales, Rhonchi, Wheezes, Respiratory Distress, Stridor - Cardiovascular Exam Cardiovascular Exam: REGULAR RHYTHM, RRR, +S1, +S2, Murmur. absent: JVD - GI/Abdominal Exam GI & Abdominal Exam: Soft, Normal Bowel Sounds. absent: Firm, Guarding, Rigid, Tenderness - Extremities Exam Extremities Exam: Normal Inspection - Back Exam Back Exam: NORMAL INSPECTION - Neurological Exam Neurological Exam: Alert, Awake, Oriented x3 - Psychiatric Exam Psychiatric exam: Flat Affect - Skin Skin Exam: Dry, Normal Color, Rash (on the face.), Warm Assessment and Plan - Assessment and Plan (Free Text) Assessment: Patient is a 56 y/o with pmh of mytonic dysthrophy type 1, diabetes, COPD ( bipap non compliance), hypothyroidism, and rectal cancer s/p resection and chemo presented with confusion secondary to hypoglycemia, and was found to be in respiratory distress 2nd to hypercapneic respiratory failure. Patient was monitored in icu for 24 hrs on bipap, and is currently doing well on med/surge floor. Plan: 1) COPD exacerbation- resolved - continue bipap at night - continue duoneb standing dose and prn - on solumedrol q12, will continue and pulmcort. - on levaquin - pulm following 2) UTI - UCX growing gram negative rods - bcx so far no growth. - no fever, no wbc. - on antibiotics as above 3) Hyperkalemia- resolved, will monitor 4) Uncontrolled IDDM2- - Continue levemir 20 units - ISS - Carb controlled diet - hgba1c 7.7, steroid and d5 fluid in antibiotics making patient fingersticks worst. 5) Hypothyroidism- continue with synthroid 75 mcg daily 6) DVT and gi prophylaxis: Lovenox sc, and protonix. Patient seen, examined, case discussed with Dr Samson. <Jayro Samson - Last Filed: 01/19/17 18:42> Objective - Vital Signs/Intake and Output Vital Signs (last 24 hours): Temp Pulse Resp BP Pulse Ox 97 F L 70 18 103/73 95 01/01/17 15:53 01/01/17 15:53 01/01/17 15:53 01/01/17 15:53 01/01/17 15:53 - Labs Labs: 01/01/17 06:00 01/01/17 06:00 PT 11.0 Seconds (9.9-11.8) 12/27/16 15:30 INR 1.02 (0.93-1.08) 12/27/16 15:30 APTT 25.6 Seconds (23.7-30.8) 12/27/16 15:30 Attending/Attestation - Attestation I have personally seen and examined this patient.: Yes I have fully participated in the care of the patient.: Yes I have reviewed all pertinent clinical information, including history, physical exam and plan: Yes Notes (Text): 01/19/17 18:42 Medical record note made by the resident after discussion with my direction and input after the patient was personally seen and examined by me. I have reviewed the chart and agree that the record accurately reflects by personal performance of the history, physical exam, data review, and medical decision-making, in the course for the patient. I have also personally directed the plan of care.
[2016-12-30] MEDS: Insulin Lispro (humaLOG) MEDIUM Coverage SC SCH ×3 (08:29→16:43)
[2016-12-30 08:54] LABS: ADD MANUAL DIFF? NO
[2016-12-30 08:57] LABS: BASO # 0.01 K/mm3 (0.0-2.0); BASO % 0.2 % (0.0-3.0); GRAN # 5.07 (1.4-6.5); GRAN % 80.3 % (50.0-68.0); HEMATOCRIT 39.2 % (36.0-48.0); LYMPH % 15.1 % (22.0-35.0); MEAN CELL VOLUME 96.1 fL (80.0-105.0); MEAN CORPUSCULAR HEMOGLOBIN 29.4 pg (25.0-35.0); MEAN CORPUSCULAR HGB CONC 30.6 g/dl (31.0-37.0); MEAN PLATELET VOLUME 11.7 fl (7.0-11.0); MONO # 0.3 (0.1-0.6); MONO % 4.4 % (1.0-6.0); PLATELET COUNT 235 10^3/uL (120.0-450.0); RED CELL DISTRIBUTION WIDTH 15.7 % (11.5-14.5); WHITE BLOOD COUNT 6.3 10^3/ul (4.5-11.0)
[2016-12-30 09:07] LABS: ALB/GLOB RATIO 1.3 (1.1-1.8); ALKALINE PHOSPHATASE 43 U/L (38-133); ALT/SGPT 28 U/L (7-56); AST/SGOT 35 U/L (15-39); BILIRUBIN,TOTAL 0.4 mg/dL (0.2-1.3); BLOOD UREA NITROGEN 42 mg/dL (7-21); CALCIUM 9.5 mg/dL (8.4-10.5); CARBON DIOXIDE 36 mmol/L (21-33); CHLORIDE 99 mmol/L (98-107); GFR AFRICAN-AMERICAN > 60; GLUCOSE,RANDOM 280 mg/dL (70-110); POTASSIUM 4.5 mmol/L (3.6-5.0); SODIUM 140 mmol/L (132-148); TOTAL PROTEIN 6.2 g/dL (5.8-8.3)
--- NOTE | 2016-12-30 10:22 | PN ---
DATE: 12/30/2016 The patient was seen and examined at bedside. She is out of ICU. She looks and feels better. PHYSICAL EXAMINATION: VITAL SIGNS: Temperature 97.6, pulse 65, respirations 20, pulse oximetry is 95 on room air, blood pressure 110/61. HEAD, EARS, NOSE AND THROAT: Normocephalic and atraumatic. CARDIOVASCULAR: S1, S2, no S3, regular. PULMONARY: Diminished breath sounds at both bases. Minimal rhonchi. No wheezing. EXTREMITIES: Mild edema. No cyanosis, no clubbing. GASTROINTESTINAL: Soft, nontender. No organomegaly. SKIN: Clear with no cyanosis and no skin rashes. NEUROLOGIC: Limited at present time. LABORATORY DATA: I reviewed today's blood work. Her serum sodium is 140, potassium 4.5. Blood sugars are elevated. WBC is 6.3, hemoglobin of 12.0. ASSESSMENT: 1. Acute bronchitis. 2. Chronic obstructive pulmonary disease. 3. Myotonic dystrophy. 4. Chronic respiratory insufficiency. PLAN: The patient is improving. She is not short of breath. She is awake and alert. The patient was compliant with BiPAP at night. On physical examination , there is no remaining bronchospasm and no leukocytosis on the blood work. The patient continues to improve. We will continue with current medications. Discharge planning. Nayan Disla MD cc: [id number] TT: 12/30/2016 10:21:56 Confirmation # [id number] Dictation # [id number] tn MTDD
[2016-12-30] MEDS: Enoxaparin 40 mg Syringe SC SCH (11:10)
[2016-12-30] MEDS: levoFLOXacin 500 mg in D5W 500 MG/100 ML BAG IVPB SCH (11:10)
[2016-12-30] MEDS: MethylPREDNISolone 40 mg Vial IVP SCH ×2 (11:10→21:34)
[2016-12-30] MEDS: Levothyroxine 75 MCG TAB PO SCH (11:57)
[2016-12-30] MEDS ORDERED: Zinc Oxide Topical 40% Oint (Desitin) TOP PRN (14:39)
[2016-12-30] MEDS: Budesonide 0.5 mg/2 ml Inhal Susp UD IH SCH (21:00)
[2016-12-30] MEDS: Insulin Detemir 100 units/ml Vial (Levemir) SC SCH (21:35)
[2016-12-31] MEDS: Albuterol-Ipratrop 3 mg / 0.5 (3 ml) UD IH SCH ×5 (01:15→19:30)
[2016-12-31] MEDS: Pantoprazole 40 mg EC Tab PO SCH (05:45)
[2016-12-31] MEDS: Insulin Lispro (humaLOG) MEDIUM Coverage SC SCH ×5 (06:05→22:19)
[2016-12-31 07:23] LABS: ADD MANUAL DIFF? NO
[2016-12-31 07:31] LABS: BASO # 0.01 K/mm3 (0.0-2.0); BASO % 0.2 % (0.0-3.0); GRAN # 4.93 (1.4-6.5); GRAN % 83.2 % (50.0-68.0); LYMPH # 0.8 (1.2-3.4); LYMPH % 13.9 % (22.0-35.0); MEAN CELL VOLUME 96.1 fL (80.0-105.0); MEAN CORPUSCULAR HEMOGLOBIN 28.6 pg (25.0-35.0); MEAN CORPUSCULAR HGB CONC 29.7 g/dl (31.0-37.0); MEAN PLATELET VOLUME 12.2 fl (7.0-11.0); MONO # 0.2 (0.1-0.6); MONO % 2.7 % (1.0-6.0); PLATELET COUNT 242 10^3/uL (120.0-450.0); RED CELL DISTRIBUTION WIDTH 15.6 % (11.5-14.5); WHITE BLOOD COUNT 5.9 10^3/ul (4.5-11.0)
[2016-12-31] MEDS: Budesonide 0.5 mg/2 ml Inhal Susp UD IH SCH (07:39)
[2016-12-31 07:52] LABS: ALB/GLOB RATIO 1.2 (1.1-1.8); ALKALINE PHOSPHATASE 43 U/L (38-133); ALT/SGPT 27 U/L (7-56); AST/SGOT 36 U/L (15-39); BILIRUBIN,TOTAL 0.3 mg/dL (0.2-1.3); BLOOD UREA NITROGEN 41 mg/dL (7-21); CALCIUM 9.6 mg/dL (8.4-10.5); CARBON DIOXIDE 34 mmol/L (21-33); CHLORIDE 96 mmol/L (98-107); GFR AFRICAN-AMERICAN > 60; GLUCOSE,RANDOM 294 mg/dL (70-110); SODIUM 137 mmol/L (132-148); TOTAL PROTEIN 6.2 g/dL (5.8-8.3)
[2016-12-31] MEDS: Levothyroxine 75 MCG TAB PO SCH (08:19)
[2016-12-31] MEDS: Enoxaparin 40 mg Syringe SC SCH (09:56)
[2016-12-31] MEDS: levoFLOXacin 500 mg in D5W 500 MG/100 ML BAG IVPB SCH (09:57)
[2016-12-31] MEDS: MethylPREDNISolone 40 mg Vial IVP SCH ×2 (10:40→21:50)
--- NOTE | 2016-12-31 11:01 | PN ---
DATE: 12/31/2016 The patient was seen and examined at bedside. She reports no shortness of breath, feeling better. PHYSICAL EXAMINATION: VITAL SIGNS: Temperature 97.8, pulse 68, respirations 18, pulse oximetry 96% on room air, blood pressure is 120/60. HEAD, EARS, NOSE AND THROAT: Normocephalic and atraumatic. NECK: Supple, no jugular vein distention. PULMONARY: Diminished breath sounds at both bases, minimal rhonchi. No wheezing. EXTREMITIES: Mild edema. No cyanosis. GASTROINTESTINAL: Soft, nontender. No organomegaly. SKIN: No skin rash, no cyanosis. NEUROLOGIC: Limited at present time. I reviewed today's blood work. Her serum sodium is 137, potassium 5.0, carbon dioxide 34. WBCs 5.9, hemoglobin of 11.6. ASSESSMENT: 1. Acute bronchitis. 2. Chronic obstructive pulmonary disease. 3. Myotonic dystrophy. 4. Chronic respiratory insufficiency. PLAN: I reviewed today's blood work. The WBCs are within normal range. However, elevated bicarbonate indicates chronic carbon dioxide retention. The patient is not in respiratory distress. Her bronchitis and bronchospasm are improving with current therapy. We will continue same. Discharge planning. Nayan Disla MD cc: [id number] TT: 12/31/2016 11:00:42 Confirmation # [id number] Dictation # [id number] en MTDD
--- NOTE | 2016-12-31 12:54 | PN ---
DATE: 12/31/2016 The patient is seen and examined at bedside today much more awake, alert, stating that she is feeling much better. She is tolerating IV antibiotic treatment at this point. No chest pain, no shortness of breath, no nausea, no vomiting. PHYSICAL EXAMINATION: VITAL SIGNS: Blood pressure is 122/68. Pulse rate is 68. Temperature is 97.8. O2 saturation is 96 on room air. HEENT: Normocephalic, atraumatic. Pale conjunctivae. Anicteric sclerae. NECK: No JVD, no thyromegaly. CARDIOVASCULAR: Regular rate and rhythm. S1, S2 appreciated. No S3 noted. LUNGS: Bilateral air entry is positive. No wheezes or rhonchi. ABDOMEN: Nondistended, nontender. Positive bowel sounds. EXTREMITIES: Peripheral pulses +2 with no pitting edema. LABORATORY DATA: WBCs of 5.9, hemoglobin of 11.6, hematocrit of 39.0, platelets of 242. Chemistry w ithin normal limits except for chloride of 96 and bicarb of 34. LFTs also within normal limits. Blo od sugars have been ranging between 279-388. Blood cultures again negative. ASSESSMENT: 1. Altered mental status secondary to ____ glycemia. 2. Muscular dystrophy. 3. Urinary tract infection. 4. Hypothyroidism. PLAN: At this time, we will continue on IV antibiotics on this patient, as well as her methylprednis olone that she is receiving. I did note Dr. Leyva's evaluation on this patient, as well as BiPAP a t nighttime. We will continue to watch the patient very closely in the morning. Most likely, we denia l watch her and reevaluate her blood sugar, and possibly discharge. Jayro Samson MD cc: [id number] TT: 12/31/2016 12:53:44 Confirmation # [id number] Dictation # [id number] deidre
[2016-12-31] MEDS: Insulin Detemir 100 units/ml Vial (Levemir) SC SCH (21:49)
[2017-01-01] MEDS: Albuterol-Ipratrop 3 mg / 0.5 (3 ml) UD IH SCH ×5 (01:50→16:30)
[2017-01-01] MEDS: Pantoprazole 40 mg EC Tab PO SCH (06:26)
[2017-01-01 07:15] LABS: ADD MANUAL DIFF? NO
[2017-01-01 07:19] LABS: BASO # 0.01 K/mm3 (0.0-2.0); BASO % 0.2 % (0.0-3.0); GRAN % 80.7 % (50.0-68.0); HEMATOCRIT 39.2 % (36.0-48.0); LYMPH % 15.8 % (22.0-35.0); MEAN CELL VOLUME 94.5 fL (80.0-105.0); MEAN CORPUSCULAR HEMOGLOBIN 28.9 pg (25.0-35.0); MEAN CORPUSCULAR HGB CONC 30.6 g/dl (31.0-37.0); MEAN PLATELET VOLUME 12.4 fl (7.0-11.0); MONO # 0.2 (0.1-0.6); MONO % 3.3 % (1.0-6.0); PLATELET COUNT 256 10^3/uL (120.0-450.0); RED CELL DISTRIBUTION WIDTH 15.4 % (11.5-14.5); WHITE BLOOD COUNT 6.4 10^3/ul (4.5-11.0)
[2017-01-01 07:45] LABS: ALB/GLOB RATIO 1.3 (1.1-1.8); ALKALINE PHOSPHATASE 41 U/L (38-133); ALT/SGPT 32 U/L (7-56); AST/SGOT 38 U/L (15-39); BILIRUBIN,TOTAL 0.4 mg/dL (0.2-1.3); BLOOD UREA NITROGEN 41 mg/dL (7-21); CALCIUM 9.6 mg/dL (8.4-10.5); CARBON DIOXIDE 35 mmol/L (21-33); CHLORIDE 96 mmol/L (98-107); GFR AFRICAN-AMERICAN > 60; GLUCOSE,RANDOM 253 mg/dL (70-110); POTASSIUM 4.9 mmol/L (3.6-5.0); SODIUM 136 mmol/L (132-148); TOTAL PROTEIN 6.3 g/dL (5.8-8.3)
[2017-01-01] MEDS: Insulin Lispro (humaLOG) MEDIUM Coverage SC SCH ×3 (08:13→17:03)
[2017-01-01] MEDS: Levothyroxine 75 MCG TAB PO SCH (08:14)
--- NOTE | 2017-01-01 08:41 | PN ---
DATE: 01/01/2017 SUBJECTIVE: The patient appears very comfortable this morning. She is not short of breath at rest. PHYSICAL EXAMINATION: VITAL SIGNS: Temperature is 97.9, pulse 68, respirations 16, blood pressure 100 /69. Oxygen saturation on nasal cannula is 96%. HEENT: Normocephalic, atraumatic. No JVD. CARDIOVASCULAR: Positive S1, S2. No S3. LUNGS: Decreased breath sounds at the bases. No rhonchi or wheezing this morning. EXTREMITIES: Mild edema. No cyanosis. No clubbing. Calves are nontender to palpation. GASTROINTESTINAL: Abdomen is soft, nontender, nondistended. Bowel sounds are positive. SKIN: No acute rash. NEUROLOGIC: Limited at the present time. IMPRESSION: 1. Acute bronchitis. 2. Chronic obstructive pulmonary disease. 3. Myotonic dystrophy. 4. Chronic respiratory insufficiency. PLAN: The patient appears very comfortable this morning. She is not short of breath at rest. She is awake and alert. She states she is feeling much, much better overall. She is wearing her BiPAP at night. On physical exam, her bronchospasm continues to resolve. In addition, there is no significant alveolar-arterial gradient. I will continue with the current nebulizer treatments and decrease the intravenous steroids this morning. The patient remains on antibiotic therapy. There are no temperatures noted. There is no leukocytosis. Clinical status of the patient is significantly improved -- compared to the initial presentation. However, again, the overall status/ prognosis for this patient -- with advanced myotonic dystrophy -- does remain guarded. I will discuss the above with the attending physician. Adam Leyva MD cc: [id number] TT: 01/01/2017 08:40:37 Confirmation # [id number] Dictation # [id number] en MTDD
[2017-01-01] MEDS: Enoxaparin 40 mg Syringe SC SCH (09:14)
[2017-01-01] MEDS: levoFLOXacin 500 mg in D5W 500 MG/100 ML BAG IVPB SCH (09:15)
[2017-01-01] MEDS ORDERED: MethylPREDNISolone 40 mg Vial IVP SCH (10:00)
--- NOTE | 2017-01-01 13:41 | CP.PCM.DIS ---
<Valerie Peters - Last Filed: 01/02/17 06:47> Provider - Provider Date of Admission: 12/27/16 17:35 Attending physician: Mayito Purdy MD Primary care physician: Mayito Purdy MD Consults: Pulm- Dr Leyva Time Spent in preparation of Discharge (in minutes): 50 Diagnosis - Discharge Diagnosis (1) Altered mental status Status: Resolved (2) CO2 retention Status: Resolved Priority: High (3) COPD exacerbation Status: Acute Priority: Medium (4) Hypoglycemia due to insulin Status: Resolved (5) Diabetes Status: Chronic Priority: Medium Hospital Course - Lab Results Lab Results: Micro Results 12/27/16 21:45 Blood Blood Culture - Preliminary NO GROWTH AFTER 4 DAYS 12/27/16 21:30 Blood Blood Culture - Preliminary NO GROWTH AFTER 4 DAYS 12/28/16 00:30 Urine,Clean Catch Urine Culture - Final Klebsiella Pneumoniae Ssp Pneu 12/27/16 20:54 Nose MRSA Culture (Admit) - Final MRSA NOT DETECTED Most Recent Lab Values WBC 6.4 10^3/ul (4.5-11.0) 01/01/17 06:00 RBC 4.15 10^6/uL (3.5-6.1) 01/01/17 06:00 Hgb 12.0 gm/dL (12.0-16.0) 01/01/17 06:00 Hct 39.2 % (36.0-48.0) 01/01/17 06:00 MCV 94.5 fL (80.0-105.0) 01/01/17 06:00 MCH 28.9 pg (25.0-35.0) 01/01/17 06:00 MCHC 30.6 g/dl (31.0-37.0) L 01/01/17 06:00 RDW 15.4 % (11.5-14.5) H 01/01/17 06:00 Plt Count 256 10^3/uL (120.0-450.0) 01/01/17 06:00 MPV 12.4 fl (7.0-11.0) H 01/01/17 06:00 Gran % 80.7 % (50.0-68.0) H 01/01/17 06:00 Lymph % (Auto) 15.8 % (22.0-35.0) L 01/01/17 06:00 [place] % (Auto) 3.3 % (1.0-6.0) 01/01/17 06:00 Eos % (Auto) 0.0 % (1.5-5.0) L 01/01/17 06:00 Baso % (Auto) 0.2 % (0.0-3.0) 01/01/17 06:00 Gran # 5.20 (1.4-6.5) 01/01/17 06:00 Lymph # 1.0 (1.2-3.4) L 01/01/17 06:00 [place] # 0.2 (0.1-0.6) 01/01/17 06:00 Eos # 0.0 (0.0-0.7) 01/01/17 06:00 Baso # 0.01 K/mm3 (0.0-2.0) 01/01/17 06:00 PT 11.0 Seconds (9.9-11.8) 12/27/16 15:30 INR 1.02 (0.93-1.08) 12/27/16 15:30 APTT 25.6 Seconds (23.7-30.8) 12/27/16 15:30 pCO2 61 mm/Hg (35-45) H 12/28/16 06:00 pO2 63.0 mm/Hg (80-100) L 12/28/16 06:00 HCO3 34.5 mmol/L (21-28) H 12/28/16 06:00 ABG pH 7.36 (7.35-7.45) 12/28/16 06:00 ABG Total CO2 36.4 mmol.L (22-28) H 12/28/16 06:00 ABG O2 Saturation 94.9 % (95-98) L 12/28/16 06:00 ABG O2 Content 15.0 ML/dl (15-23) 12/28/16 06:00 ABG Base Excess 7.3 mmol/L (-2.0-3.0) H 12/28/16 06:00 ABG Hemoglobin 11.5 g/dL (11.7-17.4) L 12/28/16 06:00 ABG Carboxyhemoglobin 1.4 % (0.5-1.5) 12/28/16 06:00 POC ABG HHb (Measured) 5.0 % (0-5) 12/28/16 06:00 ABG Methemoglobin 1.1 % (0.0-3.0) 12/28/16 06:00 ABG O2 Capacity 15.8 mL/dl (16-24) L 12/28/16 06:00 ABG Potassium 4.9 mmol/L (3.6-5.2) 12/27/16 16:10 VBG pH 7.39 (7.32-7.43) 12/27/16 21:45 VBG pCO2 65.0 (40-60) H 12/27/16 21:45 VBG HCO3 40.0 mmol/l (21-28) H 12/27/16 21:45 VBG Total CO2 42.0 mmol.L (22-28) H 12/27/16 21:45 VBG O2 Sat (Calc) 94.3 % (40-65) H 12/27/16 21:45 VBG Base Excess 12.1 mmol/L (0.0-2.0) H 12/27/16 21:45 VBG Potassium 5.5 mmol/L (3.6-5.2) H 12/27/16 21:45 Hgb O2 Saturation 92.4 % (95.0-98.0) L 12/28/16 06:00 Sodium 140.0 mmol/L (132-148) 12/27/16 21:45 Chloride 104.0 mmol/L (98-107) 12/27/16 21:45 Glucose 244 mg/dl (65-105) H 12/27/16 21:45 Lactate 1.5 mmol/L (0.7-2.1) 12/27/16 21:45 FiO2 35.0 % 12/28/16 06:00 Sodium 136 mmol/L (132-148) 01/01/17 06:00 Potassium 4.9 mmol/L (3.6-5.0) 01/01/17 06:00 Chloride 96 mmol/L (98-107) L 01/01/17 06:00 Carbon Dioxide 35 mmol/L (21-33) H 01/01/17 06:00 Anion Gap 10 (10-20) 01/01/17 06:00 BUN 41 mg/dL (7-21) H 01/01/17 06:00 Creatinine 0.9 mg/dL (0.5-1.4) 01/01/17 06:00 Est GFR ( Amer) > 60 01/01/17 06:00 Est GFR (Non-Af Amer) > 60 01/01/17 06:00 POC Glucose (mg/dL) 277 mg/dL (65-110) H 12/31/16 16:21 Random Glucose 253 mg/dL (70-110) H 01/01/17 06:00 Hemoglobin A1c 7.7 % (4.2-6.5) H D 12/29/16 06:30 Calcium 9.6 mg/dL (8.4-10.5) 01/01/17 06:00 Total Bilirubin 0.4 mg/dL (0.2-1.3) 01/01/17 06:00 AST 38 U/L (15-39) 01/01/17 06:00 ALT 32 U/L (7-56) 01/01/17 06:00 Alkaline Phosphatase 41 U/L (38-133) 01/01/17 06:00 Lactate Dehydrogenase 341 U/L (333-699) 12/27/16 15:30 Total Creatine Kinase < 20 U/L (35-230) L 12/27/16 15:30 Troponin I < 0.01 ng/mL 12/27/16 15:30 NT-Pro-B Natriuret Pep 154 pg/mL (0-450) 12/27/16 15:30 Total Protein 6.3 g/dL (5.8-8.3) 01/01/17 06:00 Albumin 3.5 g/dL (3.0-4.8) 01/01/17 06:00 Globulin 2.8 gm/dL 01/01/17 06:00 Albumin/Globulin Ratio 1.3 (1.1-1.8) 01/01/17 06:00 Lipase 79 U/L (23-300) 12/27/16 15:30 Procalcitonin < 0.05 NG/ML (0.19-0.49) L 12/28/16 06:15 Arterial Blood Potassium 4.9 mmol/L (3.6-5.2) 12/27/16 16:10 Venous Blood Potassium 5.5 mmol/L (3.6-5.2) H 12/27/16 21:45 Urine Color Yellow (YELLOW) 12/28/16 00:30 Urine Appearance Cloudy (CLEAR) 12/28/16 00:30 Urine pH 7.0 (4.7-8.0) 12/28/16 00:30 Ur Specific [place] 1.015 (1.005-1.035) 12/28/16 00: Urine Protein Negative mg/dL (<30 mg/dL) 12/28/16: Urine Glucose (UA) >=1000 mg/dL (NEGATIVE) 12/28/16: Urine Ketones Negative mg/dL (NEGATIVE) 12/28/16 00: Urine Blood Negative (NEGATIVE) 12/28/16 Urine Nitrate Positive (NEGATIVE) H 12/28/16 00:30 Urine Bilirubin Negative (NEGATIVE) 12/28/16: Urine Urobilinogen 0.2 E.U./dL (<1 E.U./dL) 12/28/16 00:30 Ur Leukocyte Esterase Large Nancy/uL (NEGATIVE) H 12/28/16 00:30 Urine RBC 0 - 2 /hpf (0-2) 12/28/16 00:30 Urine WBC 20 - 25 /hpf (0-6) 12/28/16 00:30 Ur Epithelial Cells 0 - 2 /hpf (0-5) 12/28/16 00:30 Urine Bacteria Many (NEG) 12/28/16 00:30 - Hospital Course Hospital Course: Patient is a 56 y/o with pmh of mytonic dysthrophy type 1, diabetes, COPD ( bipap non compliance), hypothyroidism, and rectal cancer s/p resection and chemo presented with confusion secondary to hypoglycemia ( as per patient home finger stick was in the 20s), and was found to be in respiratory distress 2nd to hypercapneic respiratory failure. Patient was monitored in icu for 24 hrs on bipap, started on Levaquin, solumedrol and duoneb treatments. Pulmonary was consulted. On hospital day 2 patient's pco2 and mental status improved. Upon further interviewing, it was noted that patient was also not taking her insulin properly. Patient was injecting her pre prandial insulin almost 5 times per day. Patient was counseled on proper ways to use her insulin. Ua and ucx was positive however patient had no urinary symptoms. Patient was noted to have hyperkalemia on admission which was treated. Patient to be discharged with 3 more days of Levaquin, medrol dose pack and follow up with Dr Purdy and Dr Leyva. - Date & Time of H&P Date of H&P: 12/28/16 Time of H&P: 00:15 Discharge Exam - Head Exam Head Exam: ATRAUMATIC, NORMAL INSPECTION, NORMOCEPHALIC - Eye Exam Eye Exam: EOMI, Normal appearance, PERRL. absent: Scleral icterus - ENT Exam ENT Exam: Mucous Membranes Moist - Neck Exam Neck exam: Normal Inspection - Respiratory Exam Respiratory Exam: Clear to PA & Lateral, NORMAL BREATHING PATTERN, UNREMARKABLE. absent: Rales, Rhonchi, Wheezes, Respiratory Distress, Stridor - Cardiovascular Exam Cardiovascular Exam: REGULAR RHYTHM, RRR, +S1, +S2. absent: Systolic Murmur - GI/Abdominal Exam GI & Abdominal Exam: Normal Bowel Sounds, Unremarkable. absent: Diminished Bowel Sounds, Distended, Firm, Guarding, Rigid, Soft, Tenderness - Extremities Exam Extremities exam: normal inspection - Back Exam Back exam: NORMAL INSPECTION - Neurological Exam Neurological exam: Alert, Oriented x3 - Psychiatric Exam Psychiatric exam: Normal Affect, Normal Mood - Skin Skin Exam: Dry, Intact, Normal Color, Warm Discharge Plan - Discharge Medications Prescriptions: Insulin Aspart [Novolog] 10 unit SC BID #100 ml Levofloxacin [Levaquin] 500 mg PO DAILY #3 tablet Methylprednisolone [Medrol Dose Pack (21 tabs)] 4 mg PO DAILY #21 mg - Follow Up Plan Condition: SERIOUS Disposition: HOME/ ROUTINE Patient education suggested?: Yes Instructions: Pneumococcal Vaccine for Adults (DC), Diabetic Hypoglycemia (DC) , Basic Carbohydrate Counting (DC), Altered Mental Status (GEN) Additional Instructions: - Take novolog 10 units 2 times day instead of 20 units 2 times aday. - Make sure the food is in front of you before you take the insulin - Continue to take 20 units levemir before bed time - In the morning when you measure your sugar and its low ( below 75), eat or drink orange juice, take your sugar in 2-2.5 hrs. - Call Dr Samson on Sunday to tell him your fingerstick numbers. - The antibiotic for 3 more days - Its important that you use your bipap at home during the night. - Go to the nearest emergency room if you experience dizziness, cp, shortness of breath, fever or chills. Referrals: Mayito Purdy MD [Primary Care Provider] - <Jayro Samson - Last Filed: 01/19/17 18:53> Provider - Provider Date of Admission: 12/27/16 17:35 Attending physician: Mayito Purdy MD Primary care physician: Mayito Purdy MD Hospital Course - Lab Results Lab Results: Micro Results 12/27/16 21:45 Blood Blood Culture - Final NO GROWTH AFTER 5 DAYS 12/27/16 21:45 Blood Gram Stain - Final TEST NOT PERFORMED 12/27/16 21:30 Blood Blood Culture - Final NO GROWTH AFTER 5 DAYS 12/27/16 21:30 Blood Gram Stain - Final TEST NOT PERFORMED 12/28/16 00:30 Urine,Clean Catch Urine Culture - Final Klebsiella Pneumoniae Ssp Pneu 12/27/16 20:54 Nose MRSA Culture (Admit) - Final MRSA NOT DETECTED Most Recent Lab Values WBC 6.4 10^3/ul (4.5-11.0) 01/01/17 06:00 RBC 4.15 10^6/uL (3.5-6.1) 01/01/17 06:00 Hgb 12.0 gm/dL (12.0-16.0) 01/01/17 06:00 Hct 39.2 % (36.0-48.0) 01/01/17 06:00 MCV 94.5 fL (80.0-105.0) 01/01/17 06:00 MCH 28.9 pg (25.0-35.0) 01/01/17 06:00 MCHC 30.6 g/dl (31.0-37.0) L 01/01/17 06:00 RDW 15.4 % (11.5-14.5) H 01/01/17 06:00 Plt Count 256 10^3/uL (120.0-450.0) 01/01/17 06:00 MPV 12.4 fl (7.0-11.0) H 01/01/17 06:00 Gran % 80.7 % (50.0-68.0) H 01/01/17 06:00 Lymph % (Auto) 15.8 % (22.0-35.0) L 01/01/17 06:00 [place] % (Auto) 3.3 % (1.0-6.0) 01/01/17 06:00 Eos % (Auto) 0.0 % (1.5-5.0) L 01/01/17 06:00 Baso % (Auto) 0.2 % (0.0-3.0) 01/01/17 06:00 Gran # 5.20 (1.4-6.5) 01/01/17 06:00 Lymph # 1.0 (1.2-3.4) L 01/01/17 06:00 [place] # 0.2 (0.1-0.6) 01/01/17 06:00 Eos # 0.0 (0.0-0.7) 01/01/17 06:00 Baso # 0.01 K/mm3 (0.0-2.0) 01/01/17 06:00 PT 11.0 Seconds (9.9-11.8) 12/27/16 15:30 INR 1.02 (0.93-1.08) 12/27/16 15:30 APTT 25.6 Seconds (23.7-30.8) 12/27/16 15:30 pCO2 61 mm/Hg (35-45) H 12/28/16 06:00 pO2 63.0 mm/Hg (80-100) L 12/28/16 06:00 HCO3 34.5 mmol/L (21-28) H 12/28/16 06:00 ABG pH 7.36 (7.35-7.45) 12/28/16 06:00 ABG Total CO2 36.4 mmol.L (22-28) H 12/28/16 06:00 ABG O2 Saturation 94.9 % (95-98) L 12/28/16 06:00 ABG O2 Content 15.0 ML/dl (15-23) 12/28/16 06:00 ABG Base Excess 7.3 mmol/L (-2.0-3.0) H 12/28/16 06:00 ABG Hemoglobin 11.5 g/dL (11.7-17.4) L 12/28/16 06:00 ABG Carboxyhemoglobin 1.4 % (0.5-1.5) 12/28/16 06:00 POC ABG HHb (Measured) 5.0 % (0-5) 12/28/16 06:00 ABG Methemoglobin 1.1 % (0.0-3.0) 12/28/16 06:00 ABG O2 Capacity 15.8 mL/dl (16-24) L 12/28/16 06:00 ABG Potassium 4.9 mmol/L (3.6-5.2) 12/27/16 16:10 VBG pH 7.39 (7.32-7.43) 12/27/16 21:45 VBG pCO2 65.0 (40-60) H 12/27/16 21:45 VBG HCO3 40.0 mmol/l (21-28) H 12/27/16 21:45 VBG Total CO2 42.0 mmol.L (22-28) H 12/27/16 21:45 VBG O2 Sat (Calc) 94.3 % (40-65) H 12/27/16 21:45 VBG Base Excess 12.1 mmol/L (0.0-2.0) H 12/27/16 21:45 VBG Potassium 5.5 mmol/L (3.6-5.2) H 12/27/16 21:45 Hgb O2 Saturation 92.4 % (95.0-98.0) L 12/28/16 06:00 Sodium 140.0 mmol/L (132-148) 12/27/16 21:45 Chloride 104.0 mmol/L (98-107) 12/27/16 21:45 Glucose 244 mg/dl (65-105) H 12/27/16 21:45 Lactate 1.5 mmol/L (0.7-2.1) 12/27/16 21:45 FiO2 35.0 % 12/28/16 06:00 Sodium 136 mmol/L (132-148) 01/01/17 06:00 Potassium 4.9 mmol/L (3.6-5.0) 01/01/17 06:00 Chloride 96 mmol/L (98-107) L 01/01/17 06:00 Carbon Dioxide 35 mmol/L (21-33) H 01/01/17 06:00 Anion Gap 10 (10-20) 01/01/17 06:00 BUN 41 mg/dL (7-21) H 01/01/17 06:00 Creatinine 0.9 mg/dL (0.5-1.4) 01/01/17 06:00 Est GFR ( Amer) > 60 01/01/17 06:00 Est GFR (Non-Af Amer) > 60 01/01/17 06:00 POC Glucose (mg/dL) 291 mg/dL (65-110) H 01/01/17 16:06 Random Glucose 253 mg/dL (70-110) H 01/01/17 06:00 Hemoglobin A1c 7.7 % (4.2-6.5) H D 12/29/16 06:30 Calcium 9.6 mg/dL (8.4-10.5) 01/01/17 06:00 Total Bilirubin 0.4 mg/dL (0.2-1.3) 01/01/17 06:00 AST 38 U/L (15-39) 01/01/17 06:00 ALT 32 U/L (7-56) 01/01/17 06:00 Alkaline Phosphatase 41 U/L (38-133) 01/01/17 06:00 Lactate Dehydrogenase 341 U/L (333-699) 12/27/16 15:30 Total Creatine Kinase < 20 U/L (35-230) L 12/27/16 15:30 Troponin I < 0.01 ng/mL 12/27/16 15:30 NT-Pro-B Natriuret Pep 154 pg/mL (0-450) 12/27/16 15:30 Total Protein 6.3 g/dL (5.8-8.3) 01/01/17 06:00 Albumin 3.5 g/dL (3.0-4.8) 01/01/17 06:00 Globulin 2.8 gm/dL 01/01/17 06:00 Albumin/Globulin Ratio 1.3 (1.1-1.8) 01/01/17 06:00 Lipase 79 U/L (23-300) 12/27/16 15:30 Procalcitonin < 0.05 NG/ML (0.19-0.49) L 12/28/16 06:15 Arterial Blood Potassium 4.9 mmol/L (3.6-5.2) 12/27/16 16:10 Venous Blood Potassium 5.5 mmol/L (3.6-5.2) H 12/27/16 21:45 Urine Color Yellow (YELLOW) 12/28/16 00:30 Urine Appearance Cloudy (CLEAR) 12/28/16 00:30 Urine pH 7.0 (4.7-8.0) 12/28/16 00:30 Ur Specific [place] 1.015 (1.005-1.035) 12/28/16 00:30 Urine Protein Negative mg/dL (<30 mg/dL) 12/28/16 00:30 Urine Glucose (UA) >=1000 mg/dL (NEGATIVE) 12/28/16 00:30 Urine Ketones Negative mg/dL (NEGATIVE) 12/28/16 00:30 Urine Blood Negative (NEGATIVE) 12/28/16 00:30 Urine Nitrate Positive (NEGATIVE) H 12/28/16 00:30 Urine Bilirubin Negative (NEGATIVE) 12/28/16 00:30 Urine Urobilinogen 0.2 E.U./dL (<1 E.U./dL) 12/28/16 00:30 Ur Leukocyte Esterase Large Nancy/uL (NEGATIVE) H 12/28/16 00:30 Urine RBC 0 - 2 /hpf (0-2) 12/28/16 00:30 Urine WBC 20 - 25 /hpf (0-6) 12/28/16 00:30 Ur Epithelial Cells 0 - 2 /hpf (0-5) 12/28/16 00:30 Urine Bacteria Many (NEG) 12/28/16 00:30 Attending/Attestation - Attestation I have personally seen and examined this patient.: Yes I have fully participated in the care of the patient.: Yes I have reviewed all pertinent clinical information, including history, physical exam and plan: Yes Notes (Text): 01/19/17 18:53 Medical record note made by the resident after discussion with my direction and input after the patient was personally seen and examined by me. I have reviewed the chart and agree that the record accurately reflects by personal performance of the history, physical exam, data review, and medical decision-making, in the course for the patient. I have also personally directed the plan of care.
[2017-01-01 15:54] VITALS: BP 103/73; PULSE 70; RESP 18; TEMP 97; O2SAT 95
== END 2017-01-01 18:34 | disposition home or self-care (01) | DRG 190 ==
LOC: ED 14:53 → ERH 17:35 → CCU 20:40 → 5RNO 12-28 13:04
PROVIDERS: ADMIT Internal Medicine; ATTEND Internal Medicine
PROC: 5A09457 Assistance with Respiratory Ventilation, 24-96 Consecutive Hours, Continuous Positive Airway Pressure (ICD-10-PCS; principal; 2016-12-27)
PROC: 3E0F7GC Introduction of Other Therapeutic Substance into Respiratory Tract, Via Natural or Artificial Opening (ICD-10-PCS; 2016-12-28)
DX: J44.1 Chronic obstructive pulmonary disease with (acute) exacerbation (principal); J96.92 Respiratory failure, unspecified with hypercapnia; E11.649 Type 2 diabetes mellitus with hypoglycemia without coma; E87.2 Acidosis; N39.0 Urinary tract infection, site not specified; G71.11 Myotonic muscular dystrophy; J44.0 Chronic obstructive pulmonary disease with (acute) lower respiratory infection; J20.9 Acute bronchitis, unspecified; E87.5 Hyperkalemia; E03.9 Hypothyroidism, unspecified; E11.65 Type 2 diabetes mellitus with hyperglycemia; T38.3X5A Adverse effect of insulin and oral hypoglycemic [antidiabetic] drugs, initial encounter; Z91.19 Patient's noncompliance with other medical treatment and regimen; Z85.048 Personal history of other malignant neoplasm of rectum, rectosigmoid junction, and anus; Z88.0 Allergy status to penicillin; Z87.891 Personal history of nicotine dependence; Z99.3 Dependence on wheelchair; Z90.710 Acquired absence of both cervix and uterus; Z92.21 Personal history of antineoplastic chemotherapy

== ENCOUNTER 2017-11-21 19:38 | Inpatient (IN) | payer MEDICARE, MEDICAID ==
[2017-11-21] MEDS ORDERED: TDAP Vaccine 0.5 mL Syr IM ONE (19:48)
--- NOTE | 2017-11-21 19:52 | ED PDOC ---
Arrival/HPI - General Time Seen by Provider: 11/21/17 19:40 Historian: Patient - History of Present Illness Narrative History of Present Illness (Text): 11/21/17 19:46 A 57 year old female, whose past medical history includes hypertension, hypothyroidism and multiple sclerosis, brought into the emergency department by EMS complaining of bilateral knee pain, right worse than left, after a mechanical fall earlier today. Patient reports she tripped while in her living room and landed between two furniture pieces. Patient was home alone and unable to get up by herself. Daughter arrived home 2.5 hours after fall and found patient on the floor. Patient denies any other injuries, loss of consciousness, head trauma, headache, dizziness, neck pain, nausea, vomiting, abdominal pain, back pain, chest pain, shortness of breath or any other complaints. Time/Duration: Other (earlier today) Context: Tripped Past Medical History - Provider Review Nursing Documentation Reviewed: Yes - Infectious Disease Hx of Infectious Diseases: None - Tetanus Immunization Tetanus Immunization: Unknown - Cardiac Hx Cardiac Disorders: No - Pulmonary Hx Respiratory Disorders: Yes (broncholitis) - Neurological Hx Neurological Disorder: No - HEENT Hx HEENT Disorder: Yes (eyeglasses) Hx Cataracts: Yes (bilateral cataract surgery) Other/Comment: removal of macular pocket of right eye/ jaw sx - Renal Hx Renal Disorder: No - Endocrine/Metabolic Hx Endocrine Disorders: No - Hematological/Oncological Hx Blood Disorders: No - Integumentary Hx Dermatological Disorder: No Hx Basal Cell Carcinoma: No Hx Eczema: No Hx Melanoma: No Hx Psoriasis: No Hx Squamous Cell Carcinoma: No Other/Comment: dry skin to feet, multiple surgical scars to abd - Musculoskeletal/Rheumatological Hx Musculoskeletal Disorders: (myotonic dystrophy ) - Gastrointestinal Hx Gastrointestinal Disorders: Yes (RECTAL CA WAS ON CHEMO,HAD SX,PEG IN AND OUT ) - Genitourinary/Gynecological Hx Genitourinary Disorders: Yes (UTI) - Psychiatric Hx Psychophysiologic Disorder: No Hx Substance Use: No - Surgical History Hx Cholecystectomy: Yes Hx Hysterectomy: Yes (2005) - Anesthesia Hx Anesthesia Reactions: No Hx Malignant Hyperthermia: No - Suicidal Assessment Feels Threatened In Home Enviroment: No Family/Social History - Physician Review Nursing Documentation Reviewed: Yes Family/Social History: No Known Family HX Smoking Status: Never Smoked Hx Alcohol Use: No Hx Substance Use: No Hx Substance Use Treatment: No Allergies/Home Meds Allergies/Adverse Reactions: Allergies Penicillins Allergy (Verified 08/04/16 11:24) ANGIOEDEMA Home Medications: Home Meds Medication Instructions Recorded Confirmed Albuterol Sulfate [Proair Hfa] 1 puff IH PRN PRN 04/09/15 08/11/16 Review of Systems - Physician Review All systems were reviewed & negative as marked: Yes - Review of Systems Constitutional: absent: Fevers, Night Sweats Respiratory: absent: SOB Cardiovascular: absent: Chest Pain Gastrointestinal: absent: Abdominal Pain, Nausea, Vomiting Musculoskeletal: Other (bilateral knee pain, right worse than left). absent: Back Pain, Neck Pain Neurological: absent: Headache, Dizziness Physical Exam Vital Signs Temp Pulse Resp BP Pulse Ox 11/21/17 19:46 98.7 F 90 18 100/71 100 Appearance: Positive for: Well-Appearing, Non-Toxic, Comfortable Pain Distress: None Mental Status: Positive for: Alert and Oriented X 3 - Systems Exam Head: Present: Atraumatic, Normocephalic Pupils: Present: PERRL Extroacular Muscles: Present: EOMI Conjunctiva: Present: Normal Mouth: Present: Moist Mucous Membranes Neck: Present: Normal Range of Motion Respiratory/Chest: Present: Clear to Auscultation, Good Air Exchange. No: Respiratory Distress, Accessory Muscle Use Cardiovascular: Present: Regular Rate and Rhythm, Normal S1, S2. No: Murmurs Abdomen: No: Tenderness, Distention, Peritoneal Signs Back: Present: Normal Inspection Upper Extremity: Present: Normal Inspection. No: Cyanosis, Edema Lower Extremity: Present: NORMAL PULSES, Normal ROM, Tenderness (over bilateral knees, right worse than left), Neurovascularly Intact, Other (abrasion over left knee). No: Edema, CALF TENDERNESS, Swelling, Deformity, Temperature Abnormalties Neurological: Present: GCS=15, CN II-XII Intact, Speech Normal Skin: Present: Warm, Dry, Normal Color. No: Rashes Psychiatric: Present: Alert, Oriented x 3, Normal Insight, Normal Concentration Medical Decision Making ED Course and Treatment: 11/21/17 19:46 Impression: A 57 year old female with bilateral knee pain after mechanical fall Plan: -- Bilateral knee xray -- EKG -- Labs -- Blood and Urine culture -- Urinalysis -- IV fluids and Boostrix vaccine -- Reassess and disposition Progress Notes: 11/21/17 21:54 EKG reviewed, NSR at 84 bpm. RBBB. Left posterior fascicular block. Bifascicular block. 11/21/17 22:[address] Koch, who is aware and agrees with plan. Pt will be admitted to the hospital for generalized weakness, inability to ambulate, and uncontrolled diabetes. vice president payment notified. \ - Lab Interpretations Lab Results: 11/21/17 21:00 11/21/17 21:00 Lab Results 11/21/17 21:00: pO2 28 L, VBG pH 7.32, VBG pCO2 75.0 H*, VBG HCO3 38.6 H, VBG Total CO2 40.9 H, VBG O2 Sat (Calc) 60.6, VBG Base Excess 9.4 H, VBG Potassium 4.8, Sodium 140.0, Chloride 99.0, Glucose 557 H* D, Lactate 1.5, FiO2 21.0, Venous Blood Potassium 4.8 11/21/17 21:00: Sodium 139, Chloride 97 L, Potassium 4.6, Carbon Dioxide 39 H, Anion Gap 8 L, BUN 19, Creatinine 0.8, Est GFR ( Amer) > 60, Est GFR (Non -Af Amer) > 60, Random Glucose 548 H* D, Calcium 10.3, Total Bilirubin 0.3, AST 54 H, ALT 39, Alkaline Phosphatase 81, Lactate Dehydrogenase 392, Total Creatine Kinase 28 L, Troponin I < 0.01, Total Protein 6.8, Albumin 3.9, Globulin 2.9, Albumin/Globulin Ratio 1.4 11/21/17 21:00: PT 11.7, INR 1.03 11/21/17 21:00: WBC 8.4 D, RBC 5.38, Hgb 15.5, Hct 50.4 H, MCV 93.7, MCH 28.8, MCHC 30.8 L, RDW 14.6 H, Plt Count 241, MPV 12.6 H, Gran % 80.0 H, Lymph % (Auto ) 13.7 L, [place] % (Auto) 5.1, Eos % (Auto) 1.0 L, Baso % (Auto) 0.2, Gran # 6.71 H, Lymph # (Auto) 1.2, [place] # (Auto) 0.4, Eos # (Auto) 0.1, Baso # (Auto) 0.02 I have reviewed the lab results: Yes - RAD Interpretation Radiology Orders: 11/21/17 19:48 KNEE W PATELLA BILAT 3 VIEW [RAD] Stat Cnc Maintenance Mechanic: ED Physician - EKG Interpretation Interpreted by ED Physician: Yes Type: 12 lead EKG - Medication Orders Current Medication Orders: Sodium Chloride (Sodium Chloride 0.9%) 1,000 mls @ 999 mls/hr IV .Q1H1M STA Stop: 11/21/17 22:44 Last Admin: 11/21/17 22:10 Dose: 999 mls/hr eMAR Start Stop Document 11/21/17 22:10 JOSIANE (Rec: 11/21/17 22:10 JOSIANE [id number]) Intravenous Solution Start Date 11/21/17 Start Time 22:10 End Date 11/21/17 End time 23:11 Total Infusion Time 61 Discontinued Medications Sodium Chloride (Sodium Chloride 0.9%) 500 mls @ 999 mls/hr IV .Q31M STA Stop: 11/21/17 20:23 Last Admin: 11/21/17 22:03 Dose: 999 mls/hr eMAR Start Stop Document 11/21/17 22:03 JOSIANE (Rec: 11/21/17 22:04 JOSIANE [id number]) Intravenous Solution Start Date 11/21/17 Start Time 22:04 End Date 11/21/17 End time 22:36 Total Infusion Time 32 Insulin Human Regular (Humulin R) 7 units IVP ONCE ONE Stop: 11/21/17 21:46 Last Admin: 11/21/17 22:16 Dose: 7 units MAR Blood Glucose Document 11/21/17 22:16 LA (Rec: 11/21/17 22:17 JOSIANE [id number]) Blood Glucose Finger Stick Blood Glucose (70-120) 548 IVP Administration Document 11/21/17 22:16 JOSIANE (Rec: 11/21/17 22:17 LA [id number]) Charges for Administration # of IVP Administrations 1 Tetanus/Reduced Diphtheria/Acell Pertussis (Boostrix Vaccine Inj) 0.5 ml IM .ONCE ONE Stop: 11/21/17 19:49 Last Admin: 11/21/17 22:00 Dose: 0.5 ml MAR Immunization Data Document 11/21/17 22:00 LA (Rec: 11/21/17 22:00 LA [id number]) Immunization Data Vaccine Information Sheet Given Yes Immunization Registry Document 11/21/17 22:00 LA (Rec: 11/21/17 22:00 LA [id number]) Immunization Registry Consent Date 11/21/17 - Scribe Statement The provider has reviewed the documentation as recorded by the Earlibtrevor Negron Provider Scribe Attestation: All medical record entries made by the Scribe were at my direction and personally dictated by me. I have reviewed the chart and agree that the record accurately reflects my personal performance of the history, physical exam, medical decision making, and the department course for this patient. I have also personally directed, reviewed, and agree with the discharge instructions and disposition. Disposition/Present on Arrival - Present on Arrival Any Indicators Present on Arrival: Yes History of DVT/PE: No History of Uncontrolled Diabetes: Yes Urinary Catheter: No History Surgical Site Infection Following: None - Disposition Have Diagnosis and Disposition been Completed?: Yes Diagnosis: Uncontrolled diabetes mellitus, Generalized weakness, Multiple sclerosis, Fall , Inability to ambulate due to knee, Abrasion Disposition: HOSPITALIZED Disposition Time: 22:39 Patient Plan: Discharge Patient Problems: Current Active Problems Problem Status Onset Uncontrolled diabetes mellitus Acute Generalized weakness Acute Multiple sclerosis Acute Fall Acute Inability to ambulate due to knee Acute Abrasion Acute Condition: GOOD Discharge Instructions (ExitCare): Weakness (ED) Referrals: Mayito Purdy MD [Primary Care Provider] - Follow up with primary
[2017-11-21] MEDS ORDERED: Sodium Chloride 0.9% 500 ML IV STA (19:53)
[2017-11-21 21:19] LABS: VENOUS BLOOD GAS BASE EXCESS 9.4 mmol/L (0.0-2.0); VENOUS BLOOD GAS PO2 28 mm/Hg (30-55); VENOUS BLOOD PH 7.32 (7.32-7.43)
[2017-11-21 21:21] LABS: BASO # 0.02 K/mm3 (0.0-2.0); BASO % 0.2 % (0.0-3.0); EOS # 0.1 (0.0-0.7); GRAN # 6.71 (1.4-6.5); HEMOGLOBIN 15.5 g/dL (12.0-16.0); LYMPH # 1.2 (1.2-3.4); LYMPH % 13.7 % (22.0-35.0); MEAN CELL VOLUME 93.7 fl (80.0-105.0); MEAN CORPUSCULAR HEMOGLOBIN 28.8 pg (25.0-35.0); MEAN CORPUSCULAR HGB CONC 30.8 g/dl (31.0-37.0); MEAN PLATELET VOLUME 12.6 fl (7.0-11.0); MONO # 0.4 (0.1-0.6); MONO % 5.1 % (1.0-6.0); RBC 5.38 10^6/uL (3.5-6.1); RED CELL DISTRIBUTION WIDTH 14.6 % (11.5-14.5); WHITE BLOOD COUNT 8.4 10^3/ul (4.5-11.0)
[2017-11-21 21:28] LABS: INR 1.03 (0.93-1.08); PROTHROMBIN TIME 11.7 SECONDS (9.4-12.5)
[2017-11-21 21:42] LABS: ALB/GLOB RATIO 1.4 (1.1-1.8); ALBUMIN 3.9 g/dL (3.0-4.8); ALT/SGPT 39 U/L (7-56); AST/SGOT 54 U/L (14-36); BLOOD UREA NITROGEN 19 mg/dL (7-21); CALCIUM 10.3 mg/dL (8.4-10.5); GFR AFRICAN-AMERICAN > 60; GFR NON-AFRICAN AMERICAN > 60
[2017-11-21] MEDS ORDERED: Sodium Chloride 0.9% 1,000 ML IV STA (21:44)
[2017-11-21] MEDS ORDERED: Insulin Regular 1 UNITS/0.01 ML ML IVP ONE (21:45)
[2017-11-21 21:49] LABS: TROPONIN I < 0.01 ng/mL
[2017-11-21] MEDS ORDERED: Sodium Chloride 0.9% 1,000 ML IV SCH (23:45)
[2017-11-21] MEDS ORDERED: Albuterol HFA 90 mcg/actuation (8 g) IH PRN (23:55)
[2017-11-22] MEDS ORDERED: Insulin Detemir 100 units/ml Vial (Levemir) SC STA (00:15)
--- NOTE | 2017-11-22 00:25 | CP.PCM.HP ---
<Angeline Graf - Last Filed: 11/21/17 23:59> History of Present Illness - History of Present Illness History of Present Illness: Angeline Graf, PGY1, H&P for Dr Koch: CC: s/p mechanical fall 57 year old female, with PMH hypothyroidism, DM2, COPD, presents for s/p mechanical fall at home this afternoon. Pt uses a walker at home, while she was coming out of her bathroom, she tripped in her living room. Pt lives alone, with [employer] coming in the morning and evening times. At the time of her fall, noone was at home, so pt was down on floor for 2.5 hrs before [employer] came and called EMS. Pt states that she fell forward on her four limbs, but may have hit her head as well. Denies dizziness, LOC, cp, sob, tongue biting, urinary/bowel incontinence at the time of fall, postictal confusion/disorientation. In ED, pt afebrile with other vitals stable. normal lactate 1.5. BG 548. regular insulin 7 units IVP given with BG 290s. 2L NS bolus given as well with tdap. Reports dry cough for past few days, likely from GERD. Furthermore, denies headache, neck pain, back pain, hip pain, leg swelling, abdominal pain, urinary symptoms. 12 point ROS obtained and negative, except as per HPI. PMH: diabetes, COPD, hypothyroidism, rectal ca s/p resection and chemo (last one 5 years ago), myotonic dystrophy type 1 (diagnosed at age 40) PSH: trach placement, peg placement, ileostomy, ileostomy reversal and anastomosis All: PCN FH: denies SHx: Lives with sister, who is disabled and has daily home care aides visiting Denies tobacco, EtOH, illicits/IVDA PMD: Dr. Rajwinder Arreola Onc Cheryle Cyr Present on Admission - Present on Admission Any Indicators Present on Admission: No History of DVT/PE: No History of Uncontrolled Diabetes: No Urinary Catheter: No Decubitus Ulcer Present: No Review of Systems - Review of Systems All systems: reviewed and no additional remarkable complaints except Review of Systems: as per HPI Past Patient History - Infectious Disease Hx of Infectious Diseases: None - Tetanus Immunizations Tetanus Immunization: Unknown - Past Social History Smoking Status: Never Smoked - CARDIAC Hx Cardiac Disorders: No - PULMONARY Hx Respiratory Disorders: Yes (broncholitis) - NEUROLOGICAL Hx Neurological Disorder: No - HEENT Hx HEENT Problems: Yes (eyeglasses) Hx Cataracts: Yes (bilateral cataract surgery) Other/Comment: removal of macular pocket of right eye/ jaw sx - RENAL Hx Chronic Kidney Disease: No - ENDOCRINE/METABOLIC Hx Endocrine Disorders: No - HEMATOLOGICAL/ONCOLOGICAL Hx Blood Disorders: No - INTEGUMENTARY Hx Dermatological Problems: No Hx Basil Cell: No Hx Eczema: No Hx Melanoma: No Hx Psoriasis: No Hx Squamous Cell: No Other/Comment: dry skin to feet, multiple surgical scars to abd - MUSCULOSKELETAL/RHEUMATOLOGICAL Hx Musculoskeletal Disorders: (myotonic dystrophy ) - GASTROINTESTINAL Hx Gastrointestinal Disorders: Yes (RECTAL CA WAS ON CHEMO,HAD SX,PEG IN AND OUT ) - GENITOURINARY/GYNECOLOGICAL Hx Genitourinary Disorders: Yes (UTI) - PSYCHIATRIC Hx Psychophysiologic Disorder: No Hx Substance Use: No - SURGICAL HISTORY Hx Cholecystectomy: Yes Hx Hysterectomy: Yes (2005) - ANESTHESIA Hx Anesthesia Reactions: No Hx Malignant Hyperthermia: No Meds Allergies/Adverse Reactions: Allergies Allergy/AdvReac Type Severity Reaction Status Date / Time Penicillins Allergy Severe ANGIOEDEMA Verified 11/22/17 03:31 Physical Exam - Constitutional Appears: Non-toxic, No Acute Distress, Chronically Ill - Head Exam Head Exam: ATRAUMATIC, NORMOCEPHALIC - Eye Exam Eye Exam: Normal appearance, PERRL. absent: Nystagmus, Periorbital tenderness, Scleral icterus Pupil Exam: NORMAL ACCOMODATION, PERRL. absent: Fixed, Irregular, Miosis, Mydriatic, Unequal - ENT Exam ENT Exam: Mucous Membranes Dry - Neck Exam Neck exam: Positive for: Full Rom - Respiratory Exam Respiratory Exam: Clear to Auscultation Bilateral, NORMAL BREATHING PATTERN. absent: Chest Wall Tenderness, Decreased Breath Sounds, Rales, Rhonchi, Wheezes , Stridor - Cardiovascular Exam Cardiovascular Exam: RRR, +S1, +S2. absent: Tachycardia, Systolic Murmur - GI/Abdominal Exam GI & Abdominal Exam: Normal Bowel Sounds, Soft. absent: Distended, Firm, Guarding, Mass, Pulsatile Mass, Rebound, Rigid, Tenderness - Extremities Exam Extremities exam: Positive for: normal inspection, pedal pulses present. Negative for: calf tenderness, pedal edema - Back Exam Back exam: NORMAL INSPECTION. absent: CVA tenderness (L), CVA tenderness (R) - Neurological Exam Neurological exam: Alert, CN II-XII Intact, Oriented x3, Reflexes Normal - Expanded Neurological Exam Expanded Patient oriented to: person, place, time Cranial nerves: EOM's Intact: Normal, Facial Palsey w/Forehead Movement: Normal , Facial Palsey w/o Forehead Movement: Normal, Facial Sensation: Normal, Gag Reflex: Normal, Nystagmus: Normal, Tongue Deviation: Normal Cerebellar Function: Finger to Nose: Normal, Heel to Crouch: Normal Upper motor neuron: Babinski Sign: Normal, Pronator Drift: Normal Sensory exam: Lower Extremity Light Touch: Normal, Upper Extremity Light Touch: Normal Neuro motor strength exam: Left Upper Extremity: 4, Right Upper Extremity: 4, Left Lower Extremity: 4, Right Lower Extremity: 4 DTR: Achilles Tendon Left: 2+, Achilles Tendon Right: 2+, Bicep Left: 2+, Bicep Right: 2+, Patellar Left: 2+, Patellar Right: 2+, Tricep Left: 2+, Tricep Right : 2+ Coma Scale Eye Opening: SPONTANEOUS Coma Scale Motor Response: OBEYS COMMANDS Coma Scale Verbal: Oriented Coma Scale Total: 15 - Psychiatric Exam Psychiatric exam: Normal Affect, Normal Mood - Skin Skin Exam: Dry, Normal Color, Warm Results - Vital Signs Recent Vital Signs: Last Vital Signs Temp 98.7 F 11/21/17 19:46 Pulse 90 11/21/17 19:46 Resp 18 11/21/17 19:46 BP 100/71 11/21/17 19:46 Pulse Ox 100 11/21/17 19:46 - Labs Result Diagrams: 11/21/17 21:00 11/21/17 21:00 Labs: Laboratory Results - last 24 hr 11/21/17 11/21/17 11/21/17 21:00 21:00 21:00 WBC 8.4 D RBC 5.38 Hgb 15.5 Hct 50.4 H MCV 93.7 MCH 28.8 MCHC 30.8 L RDW 14.6 H Plt Count 241 MPV 12.6 H Gran % 80.0 H Lymph % (Auto) 13.7 L [place] % (Auto) 5.1 Eos % (Auto) 1.0 L Baso % (Auto) 0.2 Gran # 6.71 H Lymph # (Auto) 1.2 [place] # (Auto) 0.4 Eos # (Auto) 0.1 Baso # (Auto) 0.02 PT 11.7 INR 1.03 pO2 VBG pH VBG pCO2 VBG HCO3 VBG Total CO2 VBG O2 Sat (Calc) VBG Base Excess VBG Potassium Sodium 139 Chloride 97 L Glucose Lactate FiO2 Potassium 4.6 Carbon Dioxide 39 H Anion Gap 8 L BUN 19 Creatinine 0.8 Est GFR ( Amer) > 60 Est GFR (Non-Af Amer) > 60 Random Glucose 548 H* D Calcium 10.3 Total Bilirubin 0.3 AST 54 H ALT 39 Alkaline Phosphatase 81 Lactate Dehydrogenase 392 Total Creatine Kinase 28 L Troponin I < 0.01 Total Protein 6.8 Albumin 3.9 Globulin 2.9 Albumin/Globulin Ratio 1.4 Venous Blood Potassium 11/21/17 21:00 WBC RBC Hgb Hct MCV MCH MCHC RDW Plt Count MPV Gran % Lymph % (Auto) [place] % (Auto) Eos % (Auto) Baso % (Auto) Gran # Lymph # (Auto) [place] # (Auto) Eos # (Auto) Baso # (Auto) PT INR pO2 28 L VBG pH 7.32 VBG pCO2 75.0 H* VBG HCO3 38.6 H VBG Total CO2 40.9 H VBG O2 Sat (Calc) 60.6 VBG Base Excess 9.4 H VBG Potassium 4.8 Sodium 140.0 Chloride 99.0 Glucose 557 H* D Lactate 1.5 FiO2 21.0 Potassium Carbon Dioxide Anion Gap BUN Creatinine Est GFR ( Amer) Est GFR (Non-Af Amer) Random Glucose Calcium Total Bilirubin AST ALT Alkaline Phosphatase Lactate Dehydrogenase Total Creatine Kinase Troponin I Total Protein Albumin Globulin Albumin/Globulin Ratio Venous Blood Potassium 4.8 Assessment & Plan - Assessment and Plan (Free Text) Assessment: 57 year old female with PMH HTN, COPD, mytonic dysthrophy type 1, diabetes, COPD , hypothyroidism, rectal cancer s/p resection and chemo, presents s/p mechanical fall: Mechanical fall: - Head CT - Knee x ray - 2L NS bolus iN ED. NS @ 150. - Echo EF 2015 57.9%. normal - EKG pend official read. - CPK in AM - PT/OT eval - SW referral Cough: - CXR - Clear lung sounds - Robitussin - Protonix IV Hyperglycemia and hx of DM 2/2 medication noncompliance - Levemir 25 units given 1 time home dose - ISS med - Hgb AIC Hx of hypothyoridism: - TSH - home synthroid PPX: Protonix, Lovenox (if head CT neg) Diet: Carb consisitent diet Discussed with Dr Koch. - Date & Time Date: 11/22/17 Time: 00:36 <Aashish Koch Q - Last Filed: 11/22/17 05:26> Results - Vital Signs Recent Vital Signs: Last Vital Signs Temp 97.5 F L 11/22/17 01:31 Pulse 70 11/22/17 05:24 Resp 18 11/22/17 01:31 BP 91/56 L 11/22/17 01:31 Pulse Ox 97 11/21/17 23:57 - Labs Result Diagrams: 11/21/17 21:00 11/21/17 21:00 Labs: Laboratory Results - last 24 hr 11/22/17 02:12 POC Glucose (mg/dL) 162 H Attending/Attestation - Attestation I have personally seen and examined this patient.: Yes I have fully participated in the care of the patient.: Yes I have reviewed all pertinent clinical information: Yes Notes (Text): 11/22/17 05:25 I agree with the above mentioned note and exam by the resident with the addition /exception of the followin57 y/o female admitted to observation secondary to a mechanical fall with the inability to ambulate on her own. Patient lives alone and is at risk for returning to home. Patient was also found to have uncontrolled hyperglycemia which required adjustmenet.
[2017-11-22] MEDS ORDERED: guaiFENesin 100 mg/5 ml Syrup UD PO PRN (00:33)
[2017-11-22] MEDS ORDERED: Oxycodone/Acetaminophen 5/325 mg Tab PO PRN (02:22)
[2017-11-22] MEDS ORDERED: Sodium Chloride 0.9% 1,000 ML IV SCH ×2 (02:24→03:42)
[2017-11-22 02:58] VITALS: BMI 24.4
[2017-11-22] MEDS ORDERED: Pneumococcal 23-Valent Vaccine IM ONE (02:58)
[2017-11-22] MEDS: Albuterol-Ipratrop 3 mg / 0.5 (3 ml) UD IH SCH ×4 (05:22→20:06)
[2017-11-22] MEDS: Levothyroxine 75 MCG TAB PO SCH (06:45)
[2017-11-22 07:12] LABS: BASO # 0.02 K/mm3 (0.0-2.0); BASO % 0.2 % (0.0-3.0); EOS # 0.1 (0.0-0.7); EOS % 1.4 % (1.5-5.0); GRAN # 5.43 (1.4-6.5); GRAN % 61.1 % (50.0-68.0); LYMPH # 2.8 (1.2-3.4); MEAN CELL VOLUME 92.3 fl (80.0-105.0); MEAN CORPUSCULAR HEMOGLOBIN 27.9 pg (25.0-35.0); MEAN CORPUSCULAR HGB CONC 30.2 g/dl (31.0-37.0); MEAN PLATELET VOLUME 12.1 fl (7.0-11.0); MONO # 0.5 (0.1-0.6); MONO % 5.3 % (1.0-6.0); RBC 4.56 10^6/uL (3.5-6.1); RED CELL DISTRIBUTION WIDTH 14.7 % (11.5-14.5); WHITE BLOOD COUNT 8.9 10^3/ul (4.5-11.0)
[2017-11-22 07:19] LABS: HEMOGLOBIN 12.7 g/dL (12.0-16.0)
[2017-11-22 07:36] LABS: ALB/GLOB RATIO 1.2 (1.1-1.8); ALT/SGPT 32 U/L (7-56); AST/SGOT 40 U/L (14-36); BLOOD UREA NITROGEN 16 mg/dL (7-21); CALCIUM 9.4 mg/dL (8.4-10.5); GFR AFRICAN-AMERICAN > 60; GFR NON-AFRICAN AMERICAN > 60
[2017-11-22] MEDS: Budesonide 0.5 mg/2 ml Inhal Susp UD IH SCH ×2 (07:51→20:06)
--- NOTE | 2017-11-22 08:19 | RAD ---
HISTORY: cough COMPARISON: Portable chest 12/27/2016. FINDINGS: LUNGS: Limited inspiratory volume is again appreciated with linear atelectasis or fibrosis again appreciated at the left lung base. Same pattern is somewhat decrease in the right base. No pleural effusion or definite alveolitis. No pneumothorax. Cardiac silhouette appears stable. No pulmonary vascular derangement identified. PLEURA: As above. CARDIOVASCULAR: As above. OSSEOUS STRUCTURES: No significant abnormalities. VISUALIZED UPPER ABDOMEN: Normal. OTHER FINDINGS: None. IMPRESSION: Limited linear atelectasis or fibrosis stable in the left base and diminished at the right. No definite infiltrate pleural effusion or pneumothorax bilaterally.
[2017-11-22] MEDS: Insulin Lispro (humaLOG) MEDIUM Coverage SC SCH ×4 (08:24→21:47)
[2017-11-22] MEDS: Sodium Chloride 0.9% 1,000 ML IV SCH ×2 (09:31→17:17)
[2017-11-22] MEDS ORDERED: Enoxaparin 40 mg Syringe SC SCH (10:00)
--- NOTE | 2017-11-22 10:10 | RAD ---
PROCEDURE: Bilateral Knee Radiographs. HISTORY: Fall COMPARISON: None. FINDINGS: BONES: No acute fracture or destructive bony lesion identified, bilaterally. Diffuse osteopenia suggests an element of osteoporosis. Clinically correlate. JOINTS: Joint space narrowing and limited cortical sclerosis is appreciated at the bilateral medial lateral femorotibial compartments compatible degenerative joint disease. Similar changes are present the patellofemoral articulations bilaterally. SOFT TISSUES: Right Knee: Normal. Left Knee: Normal. JOINT EFFUSION: Right Knee: None. Left Knee: None. OTHER FINDINGS: None. IMPRESSION: Mild bilateral degenerative joint disease. No acute fracture, dislocation or destructive bone lesion appreciable.
[2017-11-22] MEDS ORDERED: Levalbuterol 0.63 MG/3 ML Inhal Soln UD IH PRN (13:13)
--- NOTE | 2017-11-22 14:40 | CARD ---
APPROVED REPORT EKG Measurement Heart [id number] <Conclusion> Normal sinus rhythm Right bundle branch block Left posterior fascicular block Bifascicular block Possible Inferior infarct, age undetermined Daniel-lateral infarct, age undetermined Abnormal ECG
[2017-11-22] MEDS ORDERED: Potassium Chloride 20 mEq ER Tab PO ONE (15:41)
[2017-11-22] MEDS ORDERED: Insulin Detemir 100 units/ml Vial (Levemir) SC SCH (22:00)
[2017-11-23] MEDS: Albuterol-Ipratrop 3 mg / 0.5 (3 ml) UD IH SCH ×4 (01:10→20:45)
[2017-11-23] MEDS: Budesonide 0.5 mg/2 ml Inhal Susp UD IH SCH ×2 (07:28→20:45)
[2017-11-23 07:30] LABS: PH,URINE 5.5 (4.7-8.0); URINE BILIRUBIN NEGATIVE (NEGATIVE); URINE BLOOD MODERATE (NEGATIVE); URINE GLUCOSE (UA) NEGATIVE (NEGATIVE); URINE LEUKOCYTE ESTERASE MODERATE Leu/uL (NEGATIVE); URINE PROTEIN NEGATIVE mg/dL (<30 mg/dL); URINE UROBILINOGEN 0.2 E.U./dL (<1 E.U./dL)
[2017-11-23 07:33] LABS: BASO # 0.01 K/mm3 (0.0-2.0); BASO % 0.2 % (0.0-3.0); EOS # 0.2 (0.0-0.7); EOS % 2.6 % (1.5-5.0); GRAN # 3.76 (1.4-6.5); GRAN % 61.1 % (50.0-68.0); HEMOGLOBIN 11.7 g/dL (12.0-16.0); LYMPH # 1.9 (1.2-3.4); LYMPH % 30.4 % (22.0-35.0); MEAN CELL VOLUME 93.6 fl (80.0-105.0); MEAN CORPUSCULAR HEMOGLOBIN 27.7 pg (25.0-35.0); MEAN CORPUSCULAR HGB CONC 29.5 g/dl (31.0-37.0); MEAN PLATELET VOLUME 12.4 fl (7.0-11.0); MONO # 0.4 (0.1-0.6); MONO % 5.7 % (1.0-6.0); RBC 4.23 10^6/uL (3.5-6.1); RED CELL DISTRIBUTION WIDTH 15.1 % (11.5-14.5); WHITE BLOOD COUNT 6.2 10^3/ul (4.5-11.0)
[2017-11-23 07:51] LABS: URINE APPEARANCE CLOUDY (CLEAR); URINE COLOR LIGHT YELLOW (YELLOW)
[2017-11-23 07:54] LABS: ALB/GLOB RATIO 1.2 (1.1-1.8); ALBUMIN 2.8 g/dL (3.0-4.8); ALT/SGPT 31 U/L (7-56); AST/SGOT 40 U/L (14-36); BLOOD UREA NITROGEN 15 mg/dL (7-21); CALCIUM 9.6 mg/dL (8.4-10.5); GFR AFRICAN-AMERICAN > 60; GFR NON-AFRICAN AMERICAN > 60
[2017-11-23 07:57] LABS: URINE AMORPHOUS SEDIMENT FEW; URINE BACTERIA LARGE (NEG); URINE RBC TNTC /hpf (0-2); URINE WBC TNTC /hpf (0-6)
[2017-11-23] MEDS ORDERED: Potassium Chloride 10 mEq ER Tab PO SCH (10:00)
[2017-11-23] MEDS: Pantoprazole 40 mg EC Tab PO SCH (11:22)
--- NOTE | 2017-11-23 11:24 | CON ---
DATE: 11/23/2017 PULMONARY CONSULTATION REASON FOR CONSULTATION: Chronic respiratory insufficiency. REFERRING PHYSICIAN: Adams Johansen MD HISTORY OF PRESENT ILLNESS: The patient is a chronically ill 57-year-old female, with past medical history significant for chronic obstructive pulmonary disease, recurrent bronchitis, advanced myotonic dystrophy, chronic respiratory insufficiency, respiratory failure in the past, who presents to [facility] - originally on 11/21/2017 - after falling at home. Apparently, the patient tripped and fell in her living room. She landed between two pieces of furniture and was unable to get up. She was then found by the daughter approximately 2-1/2 hours later - who called emergency medical services. The patient was thus admitted for additional evaluation. There is no history of shortness of breath at rest or dyspnea on exertion. The patient does have an occasional cough with occasional sputum production. There is no history of chest pain, coughing up of blood, or chest pain - made worse with deep respirations. There is no history of temperatures, chills or infectious exposure. There is no history of night sweats, weight loss or appetite change prior to the above events. No history of calf pains. No history of syncope or diaphoresis. No history of recent travel. REVIEW OF SYSTEMS: No history of nausea, vomiting or diarrhea. No acute urinary symptoms. The patient does complain of diffuse musculoskeletal pain. Rest of the review of systems is negative. ALLERGIES: PENICILLIN. SOCIAL HISTORY: Positive for tobacco and negative for alcohol. FAMILY HISTORY: No inheritable diseases. HOME MEDICATIONS: Include K-Dur, Synthroid, Levemir, NovoLog, Tricor, albuterol nebulizer treatments and Lasix. PHYSICAL EXAMINATION GENERAL: The patient appears comfortable this morning. She is not short of breath at rest. VITAL SIGNS: (Last noted in the computer): Temperature is 97.9, pulse is 55, respirations 16, blood pressure 84/55. Oxygen saturation on nasal cannula is 96%. HEENT: Normocephalic, atraumatic. No JVD. CARDIOVASCULAR: Positive S1, S2. No S3 gallop. LUNGS: Decreased breath sounds at the bases. Minimal rhonchi. No wheezing. EXTREMITIES: Mild edema. No cyanosis, no clubbing. Calves are nontender to palpation. GI: Abdomen is soft, nontender and nondistended. Bowel sounds are positive. SKIN: No acute rash. NEUROLOGIC: Limited at the present time. PERTINENT LABORATORY DATA: Chest x-ray was done on 11/21/2017 and reviewed. There is chronic elevation of the right hemidiaphragm. There is also some minimal linear atelectasis at the left base. These findings are unchanged. CBC: White count 8.9, hemoglobin 12.7, hematocrit 42.1, platelets of 211,000. Complete metabolic profile: Potassium 3.5, carbon dioxide 34, glucose 124, phosphorus 1.9, AST 40, total protein 5.5. Rest of the metabolic profile is within normal limits. IMPRESSION: 1. Progressive weakness. 2. Advanced myotonic dystrophy. 3. Chronic obstructive pulmonary disease. 4. Chronic respiratory insufficiency. PLAN: I did discuss the case with the night nurse at length. I have also reviewed the chart at length, and discussed the case with the patient at length. The patient presented to [facility] - originally on 11/21/2017 - after falling at home. Apparently, she was found by the daughter (approximately 2-1/2 hours later), who called emergency medical services. The patient was thus admitted for additional evaluation and treatment. I did review the chest x-ray as above. There are no new significant findings noted. On physical exam, there is mild bronchospasm noted. However, there is no significant alveolar-arterial gradient. I will continue with the current nebulizer treatments and inhaled steroids for now. The patient is significantly noncompliant with her BiPAP at night. I did have a long talk with her about this issue. She promises to use her BiPAP tonight. The clinical status of the patient appears somewhat improved - compared to the initial presentation. However, her overall status/prognosis is poor. Repeat a.m. labs are pending. I did discuss the above with Dr. Johansen at length. Thank you very much for this pulmonary consultation. Adam Leyva MD [facility]
--- NOTE | 2017-11-23 12:11 | RAD ---
PROCEDURE: Radiographs of the pelvis and bilateral hips HISTORY: fall at home, bilateral hip pain L>R COMPARISON: None. FINDINGS: BONES: Pelvis: No visible fractures. Right hip:Unremarkable. Left hip:Unremarkable. JOINTS: Right hip: Mild degenerative changes. Left hip: Symmetrical degenerative change. Sacroiliac Joints: Unremarkable. Pubic symphysis: Unremarkable. SOFT TISSUES: Normal. OTHER FINDINGS: None. IMPRESSION: No acute findings related to/accounting for the clinical presentation.
--- NOTE | 2017-11-23 17:23 | CP.PCM.PN ---
<Mendel Aggarwal - Last Filed: 11/23/17 17:19> Subjective - Date & Time of Evaluation Date of Evaluation: 11/23/17 Time of Evaluation: 07:50 - Subjective Subjective: IM Progress Note for Hospitalist Service Patient seen and examined at bedside. Overnight, nursing reported pt refused IV fluids, initially confusing it for food, but when corrected, still refused. This AM, patient denies this, reporting only that they stopped the fluids, and that they had tried to gain access in her other arm, but it hurt after too many attempts, so she told them to stop. Today, patient denies acute complaints, breathing feels fine, and her only complaint is chronic back pain and knee pain from the recent fall. Discussed with patient possibility of rehab due to fall she wasn't able to stand from, but patient flatly refuses any kind of rehab ( outpt or [facility]). After discussion with her PMD, she was amenable to TCU. Objective - Vital Signs/Intake and Output Vital Signs (last 24 hours): Temp Pulse Resp BP Pulse Ox 97.8 F 59 L 20 119/90 96 11/23/17 06:00 11/23/17 06:00 11/23/17 06:00 11/23/17 06:00 11/23/17 06:00 Intake and Output: 11/23/17 11/23/17 06:59 18:59 Intake Total 360 Balance 360 - Medications Medications: Current Medications Albuterol/Ipratropium (Duoneb 3 Mg/0.5 Mg (3 Ml) Ud) 3 ml IH [id number] [facility] Last Admin: 11/23/17 13:50 Dose: 3 ml Budesonide (Pulmicort Respules) 0.5 mg IH BIDRESP [facility] Last Admin: 11/23/17 07:28 Dose: 0.5 mg Enoxaparin Sodium (Lovenox) 40 mg SC DAILY [facility] PRN Reason: Protocol Last Admin: 11/22/17 09:32 Dose: 40 mg Fenofibrate (Tricor) 145 mg PO DAILY [facility] Last Admin: 11/23/17 11:22 Dose: 145 mg Guaifenesin (Robitussin) 100 mg PO Q4H PRN PRN Reason: Cough Sodium Chloride (Sodium Chloride 0.9%) 1,000 mls @ 125 mls/hr IV .Q8H [facility] Last Admin: 11/22/17 17:17 Dose: 125 mls/hr Ibuprofen (Motrin Tab) 600 mg PO Q6H PRN PRN Reason: Pain, moderate (4-7) Last Admin: 11/22/17 22:23 Dose: 600 mg Insulin Human Lispro (Humalog Med) 0 units SC ACHS [facility] PRN Reason: Protocol Last Admin: 11/22/17 21:47 Dose: Not Given Levalbuterol HCl (Xopenex) 0.63 mg IH Q2 PRN PRN Reason: Shortness of Breath Levothyroxine Sodium (Synthroid) 75 mcg PO 0600 [facility] Last Admin: 11/22/17 06:45 Dose: 75 mcg Oxycodone/Acetaminophen (Percocet 5/325 Mg Tab) 1 tab PO Q6H PRN PRN Reason: Pain, severe (8-10) Stop: 11/25/17 02:23 Pantoprazole Sodium (Protonix Ec Tab) 40 mg PO ACB [facility] Last Admin: 11/23/17 11:22 Dose: 40 mg Potassium Chloride (Klor-Con 10) 10 meq PO MWF [facility] Last Admin: 11/23/17 11:22 Dose: 10 meq - Labs Labs: 11/23/17 07:00 11/23/17 07:00 PT 11.7 SECONDS (9.4-12.5) 11/21/17 21:00 INR 1.03 (0.93-1.08) 11/21/17 21:00 - Constitutional Appears: Non-toxic, No Acute Distress, Older Than Stated Age, Chronically Ill - Head Exam Head Exam: ATRAUMATIC, NORMAL INSPECTION, NORMOCEPHALIC - Eye Exam Eye Exam: EOMI, Normal appearance. absent: Conjunctival injection, Scleral icterus Pupil Exam: absent: Irregular, Unequal - ENT Exam ENT Exam: Mucous Membranes Moist - Neck Exam Neck Exam: Normal Inspection - Respiratory Exam Respiratory Exam: Decreased Breath Sounds (mildly decreased breath sounds in all denis), Clear to Ausculation Bilateral, NORMAL BREATHING PATTERN - Cardiovascular Exam Cardiovascular Exam: REGULAR RHYTHM, RRR, +S1, +S2. absent: Bradycardia, Tachycardia, Irregular Rhythm, JVD, +S4 - GI/Abdominal Exam GI & Abdominal Exam: Soft, Normal Bowel Sounds. absent: Distended, Firm, Guarding, Rigid, Tenderness, Diminished Bowel Sounds, Hyperactive Bowel Sounds, Hypoactive Bowel Sounds, Organomegaly, Pulsatile Mass - Extremities Exam Extremities Exam: Normal Capillary Refill, Normal Inspection. absent: Calf Tenderness, Pedal Edema, Tenderness Additional comments: +2 radials bilaterally - Neurological Exam Additional comments: awake and alert, following all commands, moving all extremities spontaneously motor appears grossly intact and equal while supine in bed - Psychiatric Exam Psychiatric exam: Normal Affect, Normal Mood - Skin Skin Exam: Dry, Normal Color, Warm Additional comments: small healed scab along inferior portion of Left knee, pt reports from fall Assessment and Plan - Assessment and Plan (Free Text) Assessment: 57 year old female with PMH HTN, COPD, mytonic dysthrophy type 1, diabetes, COPD , hypothyroidism, rectal cancer s/p resection and chemo, presents s/p mechanical fall. Pending d/c to TCU Sunday (11/25/17). Plan: 1) Mechanical fall: - Head CT unobtainable as pt refused - Knee and Hip x-rays negative for fx - IVF held due to pt refusal - Echo EF 2016 57.9%. normal - EKG in the ED notable for bifasicular block not present on prior EKGs within past year, pending repeat EKG to confirm, if positive will consult cardiology - CPK low, so no rhabdo - PT/OT eval, recs TCU, pt amenable, to go to TCU 11/25/17 - referral 2) Hx COPD - CXR - no acute disease - Clear lung sounds - Chronically non-compliant with Bipap, ordered while inpt - Duonebs q6, xopenex q2 prn, budesonide q12 - Dr. Leyva (Pulm) consulted, appreciate all recs; continue nebs and inhaled steroids, pt agrees to be compliant with Bipap tonight 3) Hyperglycemia and hx of DM - improved - 2/2 medication noncompliance vs elevated 2/2 fall and acute stress - BG 92 - 241 since admission, hx of frequent hypoglycemic episodes as well, so requires caution with all hypoglycemics - continue Med-ISS, if BG worsens can increased to high-dose ISS - Hgb AIC 12.9, still poorly controlled 4) Hx of hypothyoridism: - TSH wnl - continue home synthroid 5) Hx myotonic dystrophy -pending TCU for rehab, chronically deconditioned Dispo: Med/Surg, pending transfer to TCU for rehab on 11/25/17 FEN: Consistent Carb, refusing IVF Access: Peripheral IV x1, if loses can consider midline for access Consults: Pulm Ppx: Protonix for GI, SCDs for DVT Patient seen, reviewed, and discussed with attending, Dr. Johansen <Adams Johansen - Last Filed: 11/24/17 15:47> Objective - Vital Signs/Intake and Output Vital Signs (last 24 hours): Temp Pulse Resp BP Pulse Ox 98.6 F 77 18 106/68 96 11/24/17 08:43 11/24/17 08:43 11/24/17 08:43 11/24/17 08:43 11/24/17 08:43 - Medications Medications: Current Medications Albuterol/Ipratropium (Duoneb 3 Mg/0.5 Mg (3 Ml) Ud) 3 ml IH [id number] [facility] Last Admin: 11/24/17 13:50 Dose: 3 ml Budesonide (Pulmicort Respules) 0.5 mg IH BIDRESP [facility] Last Admin: 11/24/17 07:48 Dose: 0.5 mg Docusate Sodium (Colace) 100 mg PO BID [facility] Last Admin: 11/24/17 11:59 Dose: 100 mg Enoxaparin Sodium (Lovenox) 40 mg SC DAILY [facility] PRN Reason: Protocol Last Admin: 11/22/17 09:32 Dose: 40 mg Fenofibrate (Tricor) 145 mg PO DAILY [facility] Last Admin: 11/24/17 09:33 Dose: 145 mg Guaifenesin (Robitussin) 100 mg PO Q4H PRN PRN Reason: Cough Last Admin: 11/23/17 21:17 Dose: 100 mg Ibuprofen (Motrin Tab) 600 mg PO Q6H PRN PRN Reason: Pain, moderate (4-7) Last Admin: 11/22/17 22:23 Dose: 600 mg Insulin Human Lispro (Humalog Med) 0 units SC ACHS [facility] PRN Reason: Protocol Last Admin: 11/24/17 13:06 Dose: Not Given Levalbuterol HCl (Xopenex) 0.63 mg IH Q2 PRN PRN Reason: Shortness of Breath Levothyroxine Sodium (Synthroid) 75 mcg PO 0600 [facility] Last Admin: 11/24/17 07:35 Dose: 75 mcg Magnesium Oxide (Mag-Ox) 400 mg PO BID [facility] Oxycodone/Acetaminophen (Percocet 5/325 Mg Tab) 1 tab PO Q6H PRN PRN Reason: Pain, severe (8-10) Stop: 11/25/17 02:23 Pantoprazole Sodium (Protonix Ec Tab) 40 mg PO ACB [facility] Last Admin: 11/24/17 09:33 Dose: 40 mg Polyethylene Glycol (Miralax) 17 gm PO DAILY [facility] Last Admin: 11/24/17 12:00 Dose: 17 gm Potassium Chloride (Klor-Con 10) 10 meq PO MWF [facility] Last Admin: 11/23/17 11:22 Dose: 10 meq - Labs Labs: 11/24/17 07:00 11/24/17 07:00 PT 11.7 SECONDS (9.4-12.5) 11/21/17 21:00 INR 1.03 (0.93-1.08) 11/21/17 21:00 Attending/Attestation - Attestation I have personally seen and examined this patient.: Yes I have fully participated in the care of the patient.: Yes I have reviewed all pertinent clinical information, including history, physical exam and plan: Yes Notes (Text): 11/24/17 15:45 Attending note; Patient seen and examined with resident. Patient is a 57 year old female with PMH of HTN, COPD, mytonic dysthrophy type 1 , diabetes, hypothyroidism, rectal cancer s/p resection and chemo, presents s/p mechanical fall. Hip x-ray and knee x-rays negative. PT evaluation appreciated. Transfer to TCU on Sunday. COPD; pulmonary evaluation appreciated. Continue BiPAP at night. Oxygen during daytime. Diabetes; continue sliding scale. Upon discharge the patient will follow-up with PMD Dr. Purdy.
--- NOTE | 2017-11-23 19:24 | CARD ---
APPROVED REPORT EKG Measurement Heart [id number] <Conclusion> Sinus rhythm with fusion complexes Possible Lateral infarct, age undetermined Abnormal ECG
[2017-11-23] MEDS: Insulin Lispro (humaLOG) MEDIUM Coverage SC SCH (21:13)
[2017-11-24] MEDS: Albuterol-Ipratrop 3 mg / 0.5 (3 ml) UD IH SCH ×4 (04:30→20:11)
[2017-11-24 07:32] LABS: BASO # 0.01 K/mm3 (0.0-2.0); BASO % 0.1 % (0.0-3.0); EOS # 0.2 (0.0-0.7); GRAN # 5.75 (1.4-6.5); GRAN % 71.7 % (50.0-68.0); HEMOGLOBIN 12.1 g/dL (12.0-16.0); LYMPH # 1.7 (1.2-3.4); LYMPH % 20.8 % (22.0-35.0); MEAN CORPUSCULAR HEMOGLOBIN 28.1 pg (25.0-35.0); MEAN CORPUSCULAR HGB CONC 30.2 g/dl (31.0-37.0); MEAN PLATELET VOLUME 12.5 fl (7.0-11.0); MONO # 0.4 (0.1-0.6); MONO % 5.4 % (1.0-6.0); RBC 4.31 10^6/uL (3.5-6.1); RED CELL DISTRIBUTION WIDTH 14.9 % (11.5-14.5)
[2017-11-24] MEDS: Sodium Chloride 0.9% 1,000 ML IV SCH ×2 (07:35→12:00)
[2017-11-24] MEDS: Levothyroxine 75 MCG TAB PO SCH (07:35)
--- NOTE | 2017-11-24 07:37 | CP.PCM.PN ---
<William Nguyen - Last Filed: 11/24/17 12:07> Subjective - Date & Time of Evaluation Date of Evaluation: 11/24/17 Time of Evaluation: 10:00 - Subjective Subjective: Subjective: Patient seen and examined. No acute events overnight. Offers no new complaints at this time. Denies fever, chills, chest pain, shortness of breath, abdominal pain, nausea, vomiting, diarrhea, constipation, and urinary symptoms. Physical Examination: - Constitutional Appears: Non-toxic, No Acute Distress, Older Than Stated Age, Chronically Ill - Head Exam Head Exam: ATRAUMATIC, NORMAL INSPECTION, NORMOCEPHALIC - Eye Exam Eye Exam: EOMI, Normal appearance. absent: Conjunctival injection, Scleral icterus - ENT Exam ENT Exam: Mucous Membranes Moist - Respiratory Exam Respiratory Exam: NORMAL BREATHING PATTERN - Cardiovascular Exam Cardiovascular Exam: REGULAR RHYTHM, RRR, +S1, +S2. absent: Bradycardia, Tachycardia, Irregular Rhythm, JVD, +S4 - GI/Abdominal Exam GI & Abdominal Exam: Soft, Normal Bowel Sounds. absent: Distended, Firm, Guarding, Rigid, Tenderness, Diminished Bowel Sounds, Hyperactive Bowel Sounds, Hypoactive Bowel Sounds, Organomegaly, Pulsatile Mass - Extremities Exam Extremities Exam: absent: Calf Tenderness, Pedal Edema, Tenderness - Neurological Exam Additional comments: awake and alert, responds to verbal stimuli, answers questions appropriately, following all commands, and moves extremities past midline - Skin Skin Exam: Dry, Normal Color, Warm Additional comments: small healed scab along inferior portion of Left knee, pt reports from fall Assessment and Plan: 57 year old female with PMH HTN, COPD, mytonic dysthrophy type 1, diabetes, COPD , hypothyroidism, rectal cancer s/p resection and chemo, presents s/p mechanical fall. Pending d/c to TCU Sunday (11/25/17). Plan: Mechanical fall: - Head CT could not be done as patient was noncompliant with exam - Knee and Hip x-rays negative for fx - IVF held due to pt refusal - Echo EF 2016 57.9%. normal - EKG in the ED notable for bifasicular block not present on prior EKGs within past year, pending repeat EKG to confirm, if positive will consult cardiology - CPK low, so no rhabdo - PT/OT eval, recs TCU, pt amenable, to go to TCU 11/25/17 - SW referral Constipation - starting miralax and docusate Hx COPD - CXR - no acute disease - Clear lung sounds - Chronically non-compliant with Bipap, ordered while inpt - Duonebs q6, xopenex q2 prn, budesonide q12 - Dr. Leyva (Pulm) consulted, appreciate all recs; continue nebs and inhaled steroids, pt agrees to be compliant with Bipap tonight Hyperglycemia and hx of DM - improved - 2/2 medication noncompliance vs elevated 2/2 fall and acute stress - BG 92 - 241 since admission, hx of frequent hypoglycemic episodes as well, so requires caution with all hypoglycemics - continue Med-ISS, if BG worsens can increased to high-dose ISS - Hgb AIC 12.9, still poorly controlled Hx of hypothyoridism: - TSH wnl - continue home synthroid Hx myotonic dystrophy -pending TCU for rehab, chronically deconditioned Ppx: - Protonix for GI - SCDs for DVT Patient seen, case reviewed with, and plan approved by attending physician, Dr. Johansen. Objective - Vital Signs/Intake and Output Vital Signs (last 24 hours): Temp Pulse Resp BP Pulse Ox 98.2 F 72 19 99/61 L 95 11/23/17 16:00 11/23/17 16:00 11/23/17 16:00 11/23/17 16:00 11/23/17 16:00 - Medications Medications: Current Medications Albuterol/Ipratropium (Duoneb 3 Mg/0.5 Mg (3 Ml) Ud) 3 ml IH [id number] [facility] Last Admin: 11/24/17 04:30 Dose: Not Given Budesonide (Pulmicort Respules) 0.5 mg IH BIDRESP [facility] Last Admin: 11/23/17 20:45 Dose: 0.5 mg Enoxaparin Sodium (Lovenox) 40 mg SC DAILY [facility] PRN Reason: Protocol Last Admin: 11/22/17 09:32 Dose: 40 mg Fenofibrate (Tricor) 145 mg PO DAILY [facility] Last Admin: 11/23/17 11:22 Dose: 145 mg Guaifenesin (Robitussin) 100 mg PO Q4H PRN PRN Reason: Cough Last Admin: 11/23/17 21:17 Dose: 100 mg Sodium Chloride (Sodium Chloride 0.9%) 1,000 mls @ 125 mls/hr IV .Q8H [facility] Last Admin: 11/24/17 07:35 Dose: Not Given Ibuprofen (Motrin Tab) 600 mg PO Q6H PRN PRN Reason: Pain, moderate (4-7) Last Admin: 11/22/17 22:23 Dose: 600 mg Insulin Human Lispro (Humalog Med) 0 units SC ACHS [facility] PRN Reason: Protocol Last Admin: 11/23/17 21:13 Dose: Not Given Levalbuterol HCl (Xopenex) 0.63 mg IH Q2 PRN PRN Reason: Shortness of Breath Levothyroxine Sodium (Synthroid) 75 mcg PO 0600 [facility] Last Admin: 11/24/17 07:35 Dose: 75 mcg Oxycodone/Acetaminophen (Percocet 5/325 Mg Tab) 1 tab PO Q6H PRN PRN Reason: Pain, severe (8-10) Stop: 11/25/17 02:23 Pantoprazole Sodium (Protonix Ec Tab) 40 mg PO ACB [facility] Last Admin: 11/23/17 11:22 Dose: 40 mg Potassium Chloride (Klor-Con 10) 10 meq PO MWF [facility] Last Admin: 11/23/17 11:22 Dose: 10 meq - Labs Labs: 11/23/17 07:00 11/23/17 07:00 PT 11.7 SECONDS (9.4-12.5) 11/21/17 21:00 INR 1.03 (0.93-1.08) 11/21/17 21:00 <Adams Johansen - Last Filed: 11/24/17 15:49> Objective - Vital Signs/Intake and Output Vital Signs (last 24 hours): Temp Pulse Resp BP Pulse Ox 98.6 F 77 18 106/68 96 11/24/17 08:43 11/24/17 08:43 11/24/17 08:43 11/24/17 08:43 11/24/17 08:43 - Medications Medications: Current Medications Albuterol/Ipratropium (Duoneb 3 Mg/0.5 Mg (3 Ml) Ud) 3 ml IH [id number] [facility] Last Admin: 11/24/17 13:50 Dose: 3 ml Budesonide (Pulmicort Respules) 0.5 mg IH BIDRESP [facility] Last Admin: 11/24/17 07:48 Dose: 0.5 mg Docusate Sodium (Colace) 100 mg PO BID [facility] Last Admin: 11/24/17 11:59 Dose: 100 mg Enoxaparin Sodium (Lovenox) 40 mg SC DAILY [facility] PRN Reason: Protocol Last Admin: 11/22/17 09:32 Dose: 40 mg Fenofibrate (Tricor) 145 mg PO DAILY [facility] Last Admin: 11/24/17 09:33 Dose: 145 mg Guaifenesin (Robitussin) 100 mg PO Q4H PRN PRN Reason: Cough Last Admin: 11/23/17 21:17 Dose: 100 mg Ibuprofen (Motrin Tab) 600 mg PO Q6H PRN PRN Reason: Pain, moderate (4-7) Last Admin: 11/22/17 22:23 Dose: 600 mg Insulin Human Lispro (Humalog Med) 0 units SC ACHS [facility] PRN Reason: Protocol Last Admin: 11/24/17 13:06 Dose: Not Given Levalbuterol HCl (Xopenex) 0.63 mg IH Q2 PRN PRN Reason: Shortness of Breath Levothyroxine Sodium (Synthroid) 75 mcg PO 0600 [facility] Last Admin: 11/24/17 07:35 Dose: 75 mcg Magnesium Oxide (Mag-Ox) 400 mg PO BID [facility] Oxycodone/Acetaminophen (Percocet 5/325 Mg Tab) 1 tab PO Q6H PRN PRN Reason: Pain, severe (8-10) Stop: 11/25/17 02:23 Pantoprazole Sodium (Protonix Ec Tab) 40 mg PO ACB [facility] Last Admin: 11/24/17 09:33 Dose: 40 mg Polyethylene Glycol (Miralax) 17 gm PO DAILY [facility] Last Admin: 11/24/17 12:00 Dose: 17 gm Potassium Chloride (Klor-Con 10) 10 meq PO MWF [facility] Last Admin: 11/23/17 11:22 Dose: 10 meq - Labs Labs: 11/24/17 07:00 11/24/17 07:00 PT 11.7 SECONDS (9.4-12.5) 11/21/17 21:00 INR 1.03 (0.93-1.08) 11/21/17 21:00 Attending/Attestation - Attestation I have personally seen and examined this patient.: Yes I have fully participated in the care of the patient.: Yes I have reviewed all pertinent clinical information, including history, physical exam and plan: Yes Notes (Text): 11/24/17 15:48 Attending note; Patient seen and examined with resident. Patient is a 57 year old female with PMH of HTN, COPD, mytonic dysthrophy type 1 , diabetes, hypothyroidism, rectal cancer s/p resection and chemo, presents s/p mechanical fall. Hip x-ray and knee x-rays negative. PT evaluation appreciated. Transfer to TCU on Sunday. COPD; pulmonary evaluation appreciated. Continue BiPAP at night. Oxygen during daytime. Diabetes; continue sliding scale. Upon discharge the patient will follow-up with PMD Dr. Purdy.
[2017-11-24 07:46] LABS: ALB/GLOB RATIO 1.2 (1.1-1.8); ALBUMIN 3.1 g/dL (3.0-4.8); ALT/SGPT 30 U/L (7-56); AST/SGOT 53 U/L (14-36); BLOOD UREA NITROGEN 20 mg/dL (7-21); CALCIUM 9.8 mg/dL (8.4-10.5); GFR AFRICAN-AMERICAN > 60; GFR NON-AFRICAN AMERICAN 57
[2017-11-24] MEDS: Budesonide 0.5 mg/2 ml Inhal Susp UD IH SCH ×2 (07:48→20:11)
[2017-11-24] MEDS: Pantoprazole 40 mg EC Tab PO SCH (09:33)
[2017-11-24] MEDS: Insulin Lispro (humaLOG) MEDIUM Coverage SC SCH ×4 (09:34→21:51)
--- NOTE | 2017-11-24 10:16 | PN ---
DATE: 11/24/2017 PULMONARY NOTE SUBJECTIVE: The patient appears comfortable this morning. She is not short of breath at rest. She appears tired. PHYSICAL EXAMINATION: VITAL SIGNS: (Last noted in the computer): Temperature is 98.2, pulse is 72, respirations 19, blood pressure is 99/61. Oxygen saturation on nasal cannula is 95%. HEENT: Normocephalic, atraumatic. No JVD. CARDIOVASCULAR: Positive S1, S2. No S3 gallop. LUNGS: Decreased breath sounds at the bases. Less rhonchi. No wheezing. EXTREMITIES: Mild edema. No cyanosis. No clubbing. Calves are nontender to palpation. GI: Abdomen is soft, nontender and nondistended. Bowel sounds are positive. SKIN: No acute rash. NEUROLOGIC: Limited at the present time. IMPRESSION: 1. Progressive weakness. 2. Advanced myotonic dystrophy. 3. Chronic obstructive pulmonary disease. 4. Chronic respiratory insufficiency. PLAN: The patient appears comfortable this morning. She is not short of breath at rest. She does remain tired. I did discuss the case with the night nurse at length. The night nurse stated that the patient had a pretty good night overall, but again refused BiPAP. I did discuss this issue with the patient again at length this morning. I did inform her that her respiratory status can (and probably will) worsen if she continues to refuse the BiPAP. On physical exam, there is no significant bronchospasm noted. In addition, there is no significant alveolar-arterial gradient. I will continue with the current nebulizer treatments for now. The clinical status of the patient does appear somewhat improved - compared to the initial presentation. However, again, the future status/prognosis for this patient remains very poor. All are aware. I will discuss the above with the attending physician. Adam Leyva MD
[2017-11-24] MEDS: POLYETHYLENE GLYCOL 3350 17 GM/Dose PACKET PO SCH (12:00)
[2017-11-24] MEDS ORDERED: Magnesium Oxide 400 mg Tab UD PO ONE (14:40)
[2017-11-24] MEDS: Magnesium Oxide 400 mg Tab UD PO SCH (17:55)
[2017-11-25] MEDS: Albuterol-Ipratrop 3 mg / 0.5 (3 ml) UD IH SCH ×3 (01:40→14:21)
[2017-11-25] MEDS: Levothyroxine 75 MCG TAB PO SCH (05:26)
[2017-11-25 06:52] LABS: ALB/GLOB RATIO 1.2 (1.1-1.8); ALBUMIN 3.2 g/dL (3.0-4.8); ALT/SGPT 35 U/L (7-56); AST/SGOT 63 U/L (14-36); BLOOD UREA NITROGEN 26 mg/dL (7-21); CALCIUM 10.2 mg/dL (8.4-10.5); GFR AFRICAN-AMERICAN > 60; GFR NON-AFRICAN AMERICAN 57
[2017-11-25 07:00] LABS: BASO # 0.01 K/mm3 (0.0-2.0); BASO % 0.2 % (0.0-3.0); EOS # 0.1 (0.0-0.7); EOS % 2.3 % (1.5-5.0); GRAN # 3.53 (1.4-6.5); HEMOGLOBIN 12.4 g/dL (12.0-16.0); LYMPH # 1.6 (1.2-3.4); LYMPH % 28.3 % (22.0-35.0); MEAN CELL VOLUME 93.3 fl (80.0-105.0); MEAN CORPUSCULAR HEMOGLOBIN 27.9 pg (25.0-35.0); MEAN CORPUSCULAR HGB CONC 29.9 g/dl (31.0-37.0); MEAN PLATELET VOLUME 12.3 fl (7.0-11.0); MONO # 0.4 (0.1-0.6); MONO % 6.2 % (1.0-6.0); RBC 4.45 10^6/uL (3.5-6.1); RED CELL DISTRIBUTION WIDTH 14.8 % (11.5-14.5); WHITE BLOOD COUNT 5.6 10^3/ul (4.5-11.0)
[2017-11-25] MEDS: Budesonide 0.5 mg/2 ml Inhal Susp UD IH SCH (07:38)
[2017-11-25] MEDS: Insulin Lispro (humaLOG) MEDIUM Coverage SC SCH ×3 (07:55→12:58)
[2017-11-25 08:12] VITALS: BP 89/58; PULSE 65; RESP 20; TEMP 97.6; O2SAT 94
[2017-11-25] MEDS: Pantoprazole 40 mg EC Tab PO SCH (08:55)
[2017-11-25] MEDS: POLYETHYLENE GLYCOL 3350 17 GM/Dose PACKET PO SCH (09:16)
[2017-11-25] MEDS: Magnesium Oxide 400 mg Tab UD PO SCH (09:18)
--- NOTE | 2017-11-25 11:45 | CP.PCM.DIS ---
<William Nguyen - Last Filed: 11/25/17 11:33> Provider - Provider Date of Admission: 11/22/17 13:54 Attending physician: Adams Johansen MD Primary care physician: Mayito Purdy MD Time Spent in preparation of Discharge (in minutes): 45 Diagnosis - Discharge Diagnosis (1) Fall Status: Resolved Priority: Medium (2) Myotonic dystrophy, type 1 Status: Chronic Priority: Medium (3) Hypertension Status: Chronic Priority: Medium (4) COPD (chronic obstructive pulmonary disease) Status: Chronic Priority: Medium (5) Hypothyroidism Status: Chronic Priority: Medium (6) Rectal cancer Status: Chronic Priority: High Hospital Course - Lab Results Lab Results: Micro Results 11/23/17 07:00 Urine Urine Culture - Final Escherichia Coli Most Recent Lab Values WBC 5.6 10^3/ul (4.5-11.0) D 11/25/17 05:30 RBC 4.45 10^6/uL (3.5-6.1) 11/25/17 05:30 Hgb 12.4 g/dL (12.0-16.0) 11/25/17 05:30 Hct 41.5 % (36.0-48.0) 11/25/17 05:30 MCV 93.3 fl (80.0-105.0) 11/25/17 05:30 MCH 27.9 pg (25.0-35.0) 11/25/17 05:30 MCHC 29.9 g/dl (31.0-37.0) L 11/25/17 05:30 RDW 14.8 % (11.5-14.5) H 11/25/17 05:30 Plt Count 186 10^3/uL (120.0-450.0) 11/25/17 05:30 MPV 12.3 fl (7.0-11.0) H 11/25/17 05:30 Gran % 63.0 % (50.0-68.0) 11/25/17 05:30 Lymph % (Auto) 28.3 % (22.0-35.0) 11/25/17 05:30 [place] % (Auto) 6.2 % (1.0-6.0) H 11/25/17 05:30 Eos % (Auto) 2.3 % (1.5-5.0) 11/25/17 05:30 Baso % (Auto) 0.2 % (0.0-3.0) 11/25/17 05:30 Gran # 3.53 (1.4-6.5) 11/25/17 05:30 Lymph # (Auto) 1.6 (1.2-3.4) 11/25/17 05:30 [place] # (Auto) 0.4 (0.1-0.6) 11/25/17 05:30 Eos # (Auto) 0.1 (0.0-0.7) 11/25/17 05:30 Baso # (Auto) 0.01 K/mm3 (0.0-2.0) 11/25/17 05:30 PT 11.7 SECONDS (9.4-12.5) 11/21/17 21:00 INR 1.03 (0.93-1.08) 11/21/17 21:00 pO2 28 mm/Hg (30-55) L 11/21/17 21:00 VBG pH 7.32 (7.32-7.43) 11/21/17 21:00 VBG pCO2 75.0 (40-60) H* 11/21/17 21:00 VBG HCO3 38.6 mmol/l (21-28) H 11/21/17 21:00 VBG Total CO2 40.9 mmol.L (22-28) H 11/21/17 21:00 VBG O2 Sat (Calc) 60.6 % (40-65) 11/21/17 21:00 VBG Base Excess 9.4 mmol/L (0.0-2.0) H 11/21/17 21:00 VBG Potassium 4.8 mmol/L (3.6-5.2) 11/21/17 21:00 Sodium 140.0 mmol/L (132-148) 11/21/17 21:00 Chloride 99.0 mmol/L (98-107) 11/21/17 21:00 Glucose 557 mg/dl (65-105) H* D 11/21/17 21:00 Lactate 1.5 mmol/L (0.7-2.1) 11/21/17 21:00 FiO2 21.0 % 11/21/17 21:00 Sodium 141 mmol/L (132-148) 11/25/17 05:30 Potassium 4.9 mmol/L (3.6-5.0) 11/25/17 05:30 Chloride 97 mmol/L (98-107) L 11/25/17 05:30 Carbon Dioxide 38 mmol/L (21-33) H 11/25/17 05:30 Anion Gap 10 (10-20) 11/25/17 05:30 BUN 26 mg/dL (7-21) H 11/25/17 05:30 Creatinine 1.0 mg/dl (0.7-1.2) 11/25/17 05:30 Est GFR ( Amer) > 60 11/25/17 05:30 Est GFR (Non-Af Amer) 57 11/25/17 05:30 POC Glucose (mg/dL) 182 mg/dL (65-110) H 11/25/17 11:16 Random Glucose 195 mg/dL (70-110) H 11/25/17 05:30 Hemoglobin A1c 12.9 % (4.2-6.5) H D 11/21/17 21:00 Calcium 10.2 mg/dL (8.4-10.5) 11/25/17 05:30 Phosphorus 3.3 mg/dL (2.5-4.5) 11/25/17 05:30 Magnesium 1.7 mg/dL (1.7-2.2) 11/25/17 05:30 Total Bilirubin 0.3 mg/dL (0.2-1.3) 11/25/17 05:30 AST 63 U/L (14-36) H 11/25/17 05:30 ALT 35 U/L (7-56) 11/25/17 05:30 Alkaline Phosphatase 66 U/L (38-126) 11/25/17 05:30 Lactate Dehydrogenase 392 U/L (333-699) 11/21/17 21:00 Total Creatine Kinase 26 U/L (35-230) L 11/22/17 06:00 Troponin I < 0.01 ng/mL 11/21/17 21:00 Total Protein 5.9 g/dL (5.8-8.3) 11/25/17 05:30 Albumin 3.2 g/dL (3.0-4.8) 11/25/17 05:30 Globulin 2.7 gm/dL 11/25/17 05:30 Albumin/Globulin Ratio 1.2 (1.1-1.8) 11/25/17 05:30 TSH 3rd Generation 1.66 mIU/mL (0.46-4.68) 11/22/17 06:00 Venous Blood Potassium 4.8 mmol/L (3.6-5.2) 11/21/17 21:00 Urine Color Light yellow (YELLOW) 11/23/17 07:00 Urine Appearance Cloudy (CLEAR) 11/23/17 07:00 Urine pH 5.5 (4.7-8.0) 11/23/17 07:00 Ur Specific [place] 1.020 (1.005-1.035) 11/23/17 07:00 Urine Protein Negative mg/dL (<30 mg/dL) 11/23/17 07:00 Urine Glucose (UA) Negative mg/dL (NEGATIVE) 11/23/17 07:00 Urine Ketones Negative mg/dL (NEGATIVE) 11/23/17 07:00 Urine Blood Moderate (NEGATIVE) H 11/23/17 07:00 Urine Nitrate Positive (NEGATIVE) H 11/23/17 07:00 Urine Bilirubin Negative (NEGATIVE) 11/23/17 07:00 Urine Urobilinogen 0.2 E.U./dL (<1 E.U./dL) 11/23/17 07:00 Ur Leukocyte Esterase Moderate Nancy/uL (NEGATIVE) H 11/23/17 07:00 Urine RBC Tntc /hpf (0-2) 11/23/17 07:00 Urine WBC Tntc /hpf (0-6) 11/23/17 07:00 Ur Epithelial Cells 4 - 5 /hpf (0-5) 11/23/17 07:00 Amorphous Sediment Few 11/23/17 07:00 Urine Bacteria Large (NEG) 11/23/17 07:00 Urine Other Uyeast 11/23/17 07:00 - Hospital Course Hospital Course: Patient is a 57 year old female with PMH HTN, COPD, mytonic dysthrophy type 1, diabetes, COPD, hypothyroidism, rectal cancer s/p resection and chemo, who was admitted for evaluation and treatment for a fall. With the use of physical examinations, lab work, and imaging the patient was diagnosed with and treated for a mechanical fall, as neurogenic and cardiogenic etiologies were ruled out, along with the patients chronic medical conditions. During their hospital stay the patient was seen by pulmonology (Dr. Leyva) whose recommendations were both appreciated and utilized in the care for this patient. During their hospital stay the patient underwent a hip xray, chest xray, and knee xray which were reviewed, appreciated, and utilized in the management of the patients clinical course. The chest xray showed no acute disease. Both the hip and knee xrays showed no acute fractures. Patient was treated with duonebs, budesonide, synthroid amongst other empiric/therapeutic medications. At this time the patient is medically stable for discharge to the TCU for further rehabiliation. Patient understands and appreciates discharge plan. Patient instructed to follow up with primary care physicians and referrals within three to five days from discharge from the TCU. This is a brief summary of the patients hospital course. Please see patient chart for full details. Discharge Exam - Head Exam Head Exam: ATRAUMATIC, NORMAL INSPECTION, NORMOCEPHALIC - Additional Findings Additional findings: - Constitutional Appears: Non-toxic, No Acute Distress, Older Than Stated Age, Chronically Ill - Head Exam Head Exam: ATRAUMATIC, NORMAL INSPECTION, NORMOCEPHALIC - Eye Exam Eye Exam: EOMI, Normal appearance. absent: Conjunctival injection, Scleral icterus - ENT Exam ENT Exam: Mucous Membranes Moist - Respiratory Exam Respiratory Exam: NORMAL BREATHING PATTERN - Cardiovascular Exam Cardiovascular Exam: REGULAR RHYTHM, RRR, +S1, +S2. absent: Bradycardia, Tachycardia, Irregular Rhythm, JVD, +S4 - GI/Abdominal Exam GI & Abdominal Exam: Soft, Normal Bowel Sounds. absent: Distended, Firm, Guarding, Rigid, Tenderness, Diminished Bowel Sounds, Hyperactive Bowel Sounds, Hypoactive Bowel Sounds, Organomegaly, Pulsatile Mass - Extremities Exam Extremities Exam: absent: Calf Tenderness, Pedal Edema, Tenderness - Neurological Exam Additional comments: awake and alert, responds to verbal stimuli, answers questions appropriately, following all commands - Skin Skin Exam: Dry, Normal Color, Warm Additional comments: small healed scab along inferior portion of Left knee, pt reports from fall Discharge Plan - Follow Up Plan Condition: GOOD Disposition: REHAB FACILITY/REHAB UNIT Instructions: Hyperglycemia, Adult (DC), Generalized Weakness (DC) Additional Instructions: PT IS DISCHARGED TO TCU. Referrals: Mayito Purdy MD [Primary Care Provider] - <Adams Johansen - Last Filed: 11/25/17 13:57> Provider - Provider Date of Admission: 11/22/17 13:54 Attending physician: Adams Johansen MD Primary care physician: Mayito Purdy MD Hospital Course - Lab Results Lab Results: Micro Results 11/23/17 07:00 Urine Urine Culture - Final Escherichia Coli Most Recent Lab Values WBC 5.6 10^3/ul (4.5-11.0) D 11/25/17 05:30 RBC 4.45 10^6/uL (3.5-6.1) 11/25/17 05:30 Hgb 12.4 g/dL (12.0-16.0) 11/25/17 05:30 Hct 41.5 % (36.0-48.0) 11/25/17 05:30 MCV 93.3 fl (80.0-105.0) 11/25/17 05:30 MCH 27.9 pg (25.0-35.0) 11/25/17 05:30 MCHC 29.9 g/dl (31.0-37.0) L 11/25/17 05:30 RDW 14.8 % (11.5-14.5) H 11/25/17 05:30 Plt Count 186 10^3/uL (120.0-450.0) 11/25/17 05:30 MPV 12.3 fl (7.0-11.0) H 11/25/17 05:30 Gran % 63.0 % (50.0-68.0) 11/25/17 05:30 Lymph % (Auto) 28.3 % (22.0-35.0) 11/25/17 05:30 [place] % (Auto) 6.2 % (1.0-6.0) H 11/25/17 05:30 Eos % (Auto) 2.3 % (1.5-5.0) 11/25/17 05:30 Baso % (Auto) 0.2 % (0.0-3.0) 11/25/17 05:30 Gran # 3.53 (1.4-6.5) 11/25/17 05:30 Lymph # (Auto) 1.6 (1.2-3.4) 11/25/17 05:30 [place] # (Auto) 0.4 (0.1-0.6) 11/25/17 05:30 Eos # (Auto) 0.1 (0.0-0.7) 11/25/17 05:30 Baso # (Auto) 0.01 K/mm3 (0.0-2.0) 11/25/17 05:30 PT 11.7 SECONDS (9.4-12.5) 11/21/17 21:00 INR 1.03 (0.93-1.08) 11/21/17 21:00 pO2 28 mm/Hg (30-55) L 11/21/17 21:00 VBG pH 7.32 (7.32-7.43) 11/21/17 21:00 VBG pCO2 75.0 (40-60) H* 11/21/17 21:00 VBG HCO3 38.6 mmol/l (21-28) H 11/21/17 21:00 VBG Total CO2 40.9 mmol.L (22-28) H 11/21/17 21:00 VBG O2 Sat (Calc) 60.6 % (40-65) 11/21/17 21:00 VBG Base Excess 9.4 mmol/L (0.0-2.0) H 11/21/17 21:00 VBG Potassium 4.8 mmol/L (3.6-5.2) 11/21/17 21:00 Sodium 140.0 mmol/L (132-148) 11/21/17 21:00 Chloride 99.0 mmol/L (98-107) 11/21/17 21:00 Glucose 557 mg/dl (65-105) H* D 11/21/17 21:00 Lactate 1.5 mmol/L (0.7-2.1) 11/21/17 21:00 FiO2 21.0 % 11/21/17 21:00 Sodium 141 mmol/L (132-148) 11/25/17 05:30 Potassium 4.9 mmol/L (3.6-5.0) 11/25/17 05:30 Chloride 97 mmol/L (98-107) L 11/25/17 05:30 Carbon Dioxide 38 mmol/L (21-33) H 11/25/17 05:30 Anion Gap 10 (10-20) 11/25/17 05:30 BUN 26 mg/dL (7-21) H 11/25/17 05:30 Creatinine 1.0 mg/dl (0.7-1.2) 11/25/17 05:30 Est GFR ( Amer) > 60 11/25/17 05:30 Est GFR (Non-Af Amer) 57 11/25/17 05:30 POC Glucose (mg/dL) 182 mg/dL (65-110) H 11/25/17 11:16 Random Glucose 195 mg/dL (70-110) H 11/25/17 05:30 Hemoglobin A1c 12.9 % (4.2-6.5) H D 11/21/17 21:00 Calcium 10.2 mg/dL (8.4-10.5) 11/25/17 05:30 Phosphorus 3.3 mg/dL (2.5-4.5) 11/25/17 05:30 Magnesium 1.7 mg/dL (1.7-2.2) 11/25/17 05:30 Total Bilirubin 0.3 mg/dL (0.2-1.3) 11/25/17 05:30 AST 63 U/L (14-36) H 11/25/17 05:30 ALT 35 U/L (7-56) 11/25/17 05:30 Alkaline Phosphatase 66 U/L (38-126) 11/25/17 05:30 Lactate Dehydrogenase 392 U/L (333-699) 11/21/17 21:00 Total Creatine Kinase 26 U/L (35-230) L 11/22/17 06:00 Troponin I < 0.01 ng/mL 11/21/17 21:00 Total Protein 5.9 g/dL (5.8-8.3) 11/25/17 05:30 Albumin 3.2 g/dL (3.0-4.8) 11/25/17 05:30 Globulin 2.7 gm/dL 11/25/17 05:30 Albumin/Globulin Ratio 1.2 (1.1-1.8) 11/25/17 05:30 TSH 3rd Generation 1.66 mIU/mL (0.46-4.68) 11/22/17 06:00 Venous Blood Potassium 4.8 mmol/L (3.6-5.2) 11/21/17 21:00 Urine Color Light yellow (YELLOW) 11/23/17 07:00 Urine Appearance Cloudy (CLEAR) 11/23/17 07:00 Urine pH 5.5 (4.7-8.0) 11/23/17 07:00 Ur Specific [place] 1.020 (1.005-1.035) 11/23/17 07:00 Urine Protein Negative mg/dL (<30 mg/dL) 11/23/17 07:00 Urine Glucose (UA) Negative mg/dL (NEGATIVE) 11/23/17 07:00 Urine Ketones Negative mg/dL (NEGATIVE) 11/23/17 07:00 Urine Blood Moderate (NEGATIVE) H 11/23/17 07:00 Urine Nitrate Positive (NEGATIVE) H 11/23/17 07:00 Urine Bilirubin Negative (NEGATIVE) 11/23/17 07:00 Urine Urobilinogen 0.2 E.U./dL (<1 E.U./dL) 11/23/17 07:00 Ur Leukocyte Esterase Moderate Nancy/uL (NEGATIVE) H 11/23/17 07:00 Urine RBC Tntc /hpf (0-2) 11/23/17 07:00 Urine WBC Tntc /hpf (0-6) 11/23/17 07:00 Ur Epithelial Cells 4 - 5 /hpf (0-5) 11/23/17 07:00 Amorphous Sediment Few 11/23/17 07:00 Urine Bacteria Large (NEG) 11/23/17 07:00 Urine Other Uyeast 11/23/17 07:00 Attending/Attestation - Attestation I have personally seen and examined this patient.: Yes I have fully participated in the care of the patient.: Yes I have reviewed all pertinent clinical information, including history, physical exam and plan: Yes Notes (Text): 11/25/17 13:56 Attending note; Patient seen and examined with resident. Patient is a 57 year old female with PMH of HTN, COPD, mytonic dysthrophy type 1 , diabetes, hypothyroidism, rectal cancer s/p resection and chemo, presents s/p mechanical fall. Hip x-ray and knee x-rays negative. PT evaluation appreciated. Transfer to TCU on Sunday. E coli UTI; started on by mouth ciprofloxacin. COPD; pulmonary evaluation appreciated. Continue BiPAP at night. Oxygen during daytime. Diabetes; continue sliding scale. transferred to TCU today. Upon discharge the patient will follow-up with PMD Dr. Purdy.
[2017-11-25] MEDS ORDERED: Ciprofloxacin 400mg/200ml D5W 400 MG/200 ML BAG IVPB SCH (14:00)
== END 2017-11-25 16:20 | DRG 638 ==
LOC: ED 19:38 → ERH 22:39 → 3RSO 11-22 02:06 → OBSVTOIN 11-22 13:54
PROVIDERS: ADMIT Internal Medicine; ATTEND Internal Medicine
PROC: 3E0234Z Introduction of Serum, Toxoid and Vaccine into Muscle, Percutaneous Approach (ICD-10-PCS; 2017-11-21)
PROC: 3E0F7GC Introduction of Other Therapeutic Substance into Respiratory Tract, Via Natural or Artificial Opening (ICD-10-PCS; 2017-11-22)
PROC: 5A09357 Assistance with Respiratory Ventilation, Less than 24 Consecutive Hours, Continuous Positive Airway Pressure (ICD-10-PCS; principal; 2017-11-24)
DX: E10.65 Type 1 diabetes mellitus with hyperglycemia (principal); N39.0 Urinary tract infection, site not specified; I10 Essential (primary) hypertension; G35 Multiple sclerosis; E03.9 Hypothyroidism, unspecified; J44.9 Chronic obstructive pulmonary disease, unspecified; G71.11 Myotonic muscular dystrophy; B96.20 Unspecified Escherichia coli [E. coli] as the cause of diseases classified elsewhere; S80.212A Abrasion, left knee, initial encounter; W01.0XXA Fall on same level from slipping, tripping and stumbling without subsequent striking against object, initial encounter; Y92.008 Other place in unspecified non-institutional (private) residence as the place of occurrence of the external cause; Z91.14 Patient's other noncompliance with medication regimen; Z85.048 Personal history of other malignant neoplasm of rectum, rectosigmoid junction, and anus; Z23 Encounter for immunization; Z90.49 Acquired absence of other specified parts of digestive tract

== ENCOUNTER 2017-11-25 16:13 | Inpatient (IN) | payer MEDICARE, MEDICAID ==
[2017-11-25] MEDS: Insulin Lispro (humaLOG) MEDIUM Coverage SC SCH ×2 (17:58→21:33)
[2017-11-25] MEDS: Magnesium Oxide 400 mg Tab UD PO SCH (18:02)
[2017-11-25] MEDS ORDERED: Arformoterol 15 mcg/2 ml Inh Sol IH SCH (20:00)
[2017-11-25] MEDS: Levalbuterol 0.63 MG/3 ML Inhal Soln UD IH PRN (20:45)
[2017-11-25] MEDS: Budesonide 0.5 mg/2 ml Inhal Susp UD IH SCH (20:45)
[2017-11-26] MEDS: Levothyroxine 75 MCG TAB PO SCH (05:36)
[2017-11-26] MEDS: Insulin Lispro (humaLOG) MEDIUM Coverage SC SCH ×4 (06:48→21:26)
[2017-11-26] MEDS: Budesonide 0.5 mg/2 ml Inhal Susp UD IH SCH ×2 (07:21→19:53)
[2017-11-26] MEDS: Levalbuterol 0.63 MG/3 ML Inhal Soln UD IH PRN (07:21)
--- NOTE | 2017-11-26 07:46 | CP.PCM.HP ---
<JasenMendel - Last Filed: 11/26/17 12:18> History of Present Illness - History of Present Illness History of Present Illness: IM H&P for Hospitalist Service CC: s/p mechanical fall, Reconditioning This is a 57 year old female with PMH HTN, COPD, mytonic dysthrophy type 1, diabetes, COPD, hypothyroidism, rectal cancer s/p resection and chemo, presents s/p mechanical fall. She was [place] [facility] for assessment after mechanical fall with possible head trauma, and while here, was found to have UTI for which she was started on Ciprofloxacin. Pt was transferred to TCU yesterday for reconditioning due to her fall despite walker, and her refusal to go to any other kind of rehab. Today, patient seen and examined at bedside in the TCU. Receiving a breathing tx at time of exam. Reports compliance with BiPAP overnight (nursing note confirms, had previously been refusing despite repeated recommendations from Pulm), but reports some increased difficulty breathing this AM. Denies chest pain or dyspnea, unable to further describe the increased difficulty breathing. No dyspnea with speech. Denies nausea, emesis, diarrhea, dysuria, hematuria, focal weakness, or fevers/chills. Does reports constipation (last reported BM Sunday), and still has some bilateral hip and knee pain, but improved as compared to initial presentation. All other ROS in 12-system review negative. PMH: as above PSH: trach placement (removed), peg placement (removed), ileostomy s/p reversal and anastomosis FH: denies SHx: Lives alone (lived with sister, who passed), WINTERIZER 2x daily for 2 hrs per visit; Denies tobacco/EtOH/illicits/IVDA PMD: Dr. Purdy Present on Admission - Present on Admission Any Indicators Present on Admission: Yes History of DVT/PE: No History of Uncontrolled Diabetes: Yes Urinary Catheter: No Review of Systems - Review of Systems All systems: reviewed and no additional remarkable complaints except (as per HPI ) Past Patient History - Infectious Disease Hx of Infectious Diseases: None - Tetanus Immunizations Tetanus Immunization: Unknown - Past Social History Smoking Status: Never Smoked - CARDIAC Hx Cardiac Disorders: No - PULMONARY Hx Respiratory Disorders: Yes (broncholitis) Hx Pneumonia: Yes Other/Comment: hx of trach - NEUROLOGICAL Hx Neurological Disorder: No - HEENT Hx HEENT Problems: Yes (eyeglasses) Hx Cataracts: Yes (bilateral cataract surgery) Other/Comment: removal of macular pocket of right eye/ jaw sx - RENAL Hx Chronic Kidney Disease: No - ENDOCRINE/METABOLIC Hx Diabetes Mellitus Type 2: Yes Hx Hypothyroidism: Yes - HEMATOLOGICAL/ONCOLOGICAL Hx Blood Disorders: Yes Hx Cancer: Yes - INTEGUMENTARY Hx Dermatological Problems: No Hx Basil Cell: No Hx Eczema: No Hx Melanoma: No Hx Psoriasis: No Hx Squamous Cell: No Other/Comment: dry skin to feet, multiple surgical scars to abd - MUSCULOSKELETAL/RHEUMATOLOGICAL Hx Falls: Yes - GASTROINTESTINAL Hx Gastrointestinal Disorders: Yes (RECTAL CA WAS ON CHEMO,HAD SX,PEG IN AND OUT ) Hx Colostomy: Yes (with reversal) Hx Diverticulitis: Yes Hx Gall Bladder Disease: Yes Other/Comment: fatty liver, colorectal sx - GENITOURINARY/GYNECOLOGICAL Hx Genitourinary Disorders: Yes (UTI) Hx Urinary Tract Infection: Yes - PSYCHIATRIC Hx Psychophysiologic Disorder: No Hx Substance Use: No - SURGICAL HISTORY Hx Surgeries: Yes Hx Cholecystectomy: Yes Hx Hysterectomy: Yes (2005) - ANESTHESIA Hx Anesthesia Reactions: No Hx Malignant Hyperthermia: No Meds Allergies/Adverse Reactions: Allergies Allergy/AdvReac Type Severity Reaction Status Date / Time Penicillins Allergy Severe ANGIOEDEMA Verified 11/22/17 03:31 Physical Exam - Additional Findings Additional findings: - Constitutional Appears: Non-toxic, No Acute Distress, Older Than Stated Age, Chronically Ill - Head Exam Head Exam: ATRAUMATIC, NORMAL INSPECTION, NORMOCEPHALIC - Eye Exam Eye Exam: EOMI, Normal appearance. absent: Conjunctival injection, Scleral icterus Pupil Exam: absent: Irregular, Unequal - ENT Exam ENT Exam: Mucous Membranes Moist - Neck Exam Neck Exam: Normal Inspection - Respiratory Exam Respiratory Exam: Decreased Breath Sounds (mildly decreased breath sounds in all denis), Clear to Ausculation Bilateral, NORMAL BREATHING PATTERN - Cardiovascular Exam Cardiovascular Exam: REGULAR RHYTHM, RRR, +S1, +S2. absent: Bradycardia, Tachycardia, Irregular Rhythm, JVD, +S4 - GI/Abdominal Exam GI & Abdominal Exam: Soft, Normal Bowel Sounds. absent: Distended, Firm, Guarding, Rigid, Tenderness, Diminished Bowel Sounds, Hyperactive Bowel Sounds, Hypoactive Bowel Sounds, Organomegaly, Pulsatile Mass - Extremities Exam Extremities Exam: Normal Capillary Refill, Normal Inspection. absent: Calf Tenderness, Pedal Edema, Tenderness Additional comments: +2 radials bilaterally - Neurological Exam Additional comments: awake and alert, following all commands, moving all extremities spontaneously motor appears grossly intact and equal while supine in bed - Psychiatric Exam Psychiatric exam: Normal Affect, Normal Mood - Skin Skin Exam: Dry, Normal Color, Warm Additional comments: small healed scab along inferior portion of Left knee, pt reports from fall Results - Vital Signs Recent Vital Signs: Last Vital Signs Temp Pulse 80 11/26/17 00:45 Resp 18 11/25/17 17:44 BP Pulse Ox - Labs Labs: Laboratory Results - last 24 hr 11/25/17 11/26/17 21:24 05:14 POC Glucose (mg/dL) 272 H 217 H Assessment & Plan - Assessment and Plan (Free Text) Assessment: This is a 57 year old female with PMH HTN, COPD, mytonic dysthrophy type 1, diabetes, COPD, hypothyroidism, rectal cancer s/p resection and chemo, presents s/p mechanical fall, now admitted to TCU for reconditioning prior to returning home, as pt refuses any other rehab or long-term placement. Plan: 1) Mechanical fall: - Head CT on admit could not be done as patient was noncompliant with exam - Knee and Hip x-rays negative for fx - Echo EF 2016 57.9%. normal - EKG in the ED notable for bifasicular block not present on prior EKGs within past year; not present on repeat EKG, which is consistent with prior EKGs ( sinus rhythm, borderline 1st degree AV block) - CPK low, so no rhabdo - Now in TCU for reconditioning, continue with PT/OT 2) Constipation - starting miralax and docusate, still no BM as per pt - will order mag-citrate x1 3) Hx COPD - CXR on admit - no acute disease - Clear lung sounds - Chronically non-compliant with Bipap, ordered while inpt; wore last night - Duonebs q6, xopenex q2 prn, budesonide q12 - Dr. Leyva (Pulm) consulted, appreciate all recs; continue nebs and inhaled steroids, Bipap 4) Hyperglycemia and hx of DM - improved - 2/2 medication noncompliance vs elevated 2/2 fall and acute stress - BG 92 - 241 since admission, hx of frequent hypoglycemic episodes as well, so requires caution with all hypoglycemics - continue Med-ISS, if BG worsens can increased to high-dose ISS - Hgb AIC 12.9, still poorly controlled 5) Hx of hypothyoridism: - TSH wnl - continue home synthroid 6) Hx myotonic dystrophy -now in TCU for reconditioning, continue PT/OT 7) UTI - UA notable for moderate blood, positive nitrate, moderate leuk esterase, TNTC WBCs/RBCs, and large bacteria - Continue Cipro BID - no systemic signs of infection, no elevated WBCs or fevers, so just UTI, not urosepsis Dispo: TCU for reconditioning, pending d/c home after due to refusal for other rehab or long-term placement, continue Abx for UTI, to be followed at home by Dr. Contreras after discharge FEN: Consistent Carb Access: peripheral IV Consults: Pulm Ppx: Protonix for GI, SCDs for DVT Pt seen, reviewed, and discussed with attending, Dr. Cook. Decision To Admit - Pt Status Changed To: Hospital Disposition Of: Inpatient Admission - Admit Certification Admit to Inpatient:: After my assessment, the patient will require hospitalization for at least two midnights. This is because of the severity of symptoms shown, intensity of services needed, and/or the medical risk in this patient being treated as an outpatient. - . Bed Request Type: [facility] <Arielle Cook - Last Filed: 11/26/17 16:42> Results - Vital Signs Recent Vital Signs: Last Vital Signs Temp 98.5 F 11/26/17 06:00 Pulse 70 11/26/17 06:00 Resp 18 11/26/17 06:00 BP 104/61 11/26/17 06:00 Pulse Ox 94 L 11/26/17 06:00 - Labs Labs: Laboratory Results - last 24 hr 11/25/17 11/26/17 11/26/17 21:24 05:14 11:04 POC Glucose (mg/dL) 272 H 217 H 174 H Attending/Attestation - Attestation I have personally seen and examined this patient.: Yes I have fully participated in the care of the patient.: Yes I have reviewed all pertinent clinical information: Yes Notes (Text): I have seen and examined patient with the resident. Agree with the above note dictated by the resident. Briefly this is 57 year old female with PMH of HTN, COPD, mytonic dysthrophy type 1, IDDM, hypothyroidism, rectal cancer s/p resection and chemo, presents who was admitted after mechanical fall. Hip x-ray and knee x-rays negative. PT recommended TCU and therefore patient was transferred to TCU today. She has EColi UTI on cipro. Continue bipap at night. Pulmonary consult appreciated. Start levemir today. Hba1c is 12.9. Diabetic education will be provided. Patient has constipation. Will start miralax. Upon discharge the patient will follow-up with PMD Dr. Purdy. Dr Arielle Cook
[2017-11-26] MEDS ORDERED: Pantoprazole 40 mg EC Tab PO SCH (10:00)
[2017-11-26] MEDS: Potassium Chloride 10 mEq ER Tab PO SCH (10:25)
[2017-11-26] MEDS: Magnesium Oxide 400 mg Tab UD PO SCH ×2 (10:25→17:22)
[2017-11-26] MEDS: POLYETHYLENE GLYCOL 3350 17 GM/Dose PACKET PO SCH (10:26)
[2017-11-26] MEDS: Enoxaparin 40 mg Syringe SC SCH (10:32)
--- NOTE | 2017-11-26 10:34 | PN ---
DATE: 11/26/2017 PULMONARY NOTE SUBJECTIVE: The patient appears comfortable this morning. She is not short of breath at rest. She appears more awake and alert this morning. PHYSICAL EXAMINATION: VITAL SIGNS: Temperature is 98.5, pulse is 70, respirations 18, blood pressure 104/61. Oxygen saturation on nasal cannula is 94%. HEENT: Normocephalic, atraumatic. No JVD. CARDIOVASCULAR: Positive S1, S2. No S3 gallop. LUNGS: Decreased breath sounds at the bases. Minimal/less rhonchi. No wheezing. EXTREMITIES: Mild edema. No cyanosis. No clubbing. Calves are nontender to palpation. GI: Abdomen is soft, nontender and nondistended. Bowel sounds are positive. SKIN: No acute rash. NEUROLOGIC: Limited at the present time. IMPRESSION: 1. Progressive weakness. 2. Advanced myotonic dystrophy. 3. Chronic obstructive pulmonary disease. 4. Chronic respiratory insufficiency. PLAN: The patient appears comfortable this morning. She is not short of breath at rest. She does appear less tired this morning. I did discuss the case with the night nurse at length. The night nurse stated that the patient had a good night and did wear her BiPAP last night. I was certainly happy to hear this news. On physical exam, there is no significant bronchospasm noted. In addition, there is no significant alveolar-arterial gradient. I will continue with the current nebulizer treatments and inhaled steroids for now. Again, the patient should continue to use her BiPAP at night. I will also order aspiration precautions. I will discuss the above with the attending physician. Adam Leyva MD [facility]
[2017-11-26] MEDS ORDERED: Magnesium Citrate Oral SOL (300 ml) PO ONE (12:19)
[2017-11-26] MEDS: Albuterol-Ipratrop 3 mg / 0.5 (3 ml) UD IH SCH ×2 (14:27→19:53)
--- NOTE | 2017-11-26 16:42 | CARD ---
APPROVED REPORT EKG Measurement Heart [id number] OR [id number] <Conclusion> Sinus rhythm with 1st degree AV block Possible Inferior infarct, age undetermined Anterolateral infarct, age undetermined Corelate clinically Abnormal ECG
[2017-11-26] MEDS: Insulin Detemir 100 units/ml Vial (Levemir) SC SCH (21:26)
[2017-11-26] MEDS: guaiFENesin 100 mg/5 ml Syrup UD PO PRN (21:27)
[2017-11-27] MEDS: Albuterol-Ipratrop 3 mg / 0.5 (3 ml) UD IH SCH ×4 (02:38→22:00)
[2017-11-27] MEDS: Levothyroxine 75 MCG TAB PO SCH (06:33)
[2017-11-27] MEDS: Pantoprazole 40 mg EC Tab PO SCH (06:33)
[2017-11-27] MEDS: Insulin Lispro (humaLOG) MEDIUM Coverage SC SCH ×4 (06:33→22:15)
[2017-11-27] MEDS: Budesonide 0.5 mg/2 ml Inhal Susp UD IH SCH ×2 (07:32→22:00)
[2017-11-27] MEDS: Levalbuterol 0.63 MG/3 ML Inhal Soln UD IH PRN (07:32)
--- NOTE | 2017-11-27 09:42 | PN ---
DATE: 11/27/2017 PULMONARY NOTE SUBJECTIVE: The patient appears comfortable this morning. She is not short of breath at rest. PHYSICAL EXAMINATION: VITAL SIGNS: Last temperature recorded is 98.3, pulse is 95, respiratory rate 18/20, blood pressure 91/62. Oxygen saturation last measured on nasal cannula - 96%. HEENT: Normocephalic, atraumatic. No JVD. CARDIOVASCULAR: Positive S1, S2. No S3 gallop. LUNGS: Decreased breath sounds at the bases. Minimal/less rhonchi. No wheezing. EXTREMITIES: Mild edema. No cyanosis. No clubbing. Calves are nontender to palpation. GI: Abdomen is soft, nontender and nondistended. Bowel sounds are positive. SKIN: No acute rash. NEUROLOGIC: Limited at the present time. IMPRESSION: 1. Progressive weakness. 2. Advanced myotonic dystrophy. 3. Chronic obstructive pulmonary disease. 4. Chronic respiratory insufficiency. PLAN: The patient appears comfortable this morning. She is not short of breath at rest. She does state to feeling better overall. I did discuss the case with the night nurse at length. The night nurse informed me that the patient had a good night, and continues to wear her BiPAP. On physical exam, there is no significant bronchospasm noted. In addition, there is no significant alveolar-arterial gradient. I will continue with the current nebulizer treatments and inhaled steroids for now. I will also continue with the aspiration precautions. The clinical status of this patient is certainly improved - compared to the initial presentation. However, again, unfortunately, the future status/prognosis for this patient remains poor. I will discuss the above with the attending physician. Adam Leyva MD MTDAminata
[2017-11-27] MEDS: Enoxaparin 40 mg Syringe SC SCH (10:18)
[2017-11-27] MEDS: Magnesium Oxide 400 mg Tab UD PO SCH ×2 (10:18→17:48)
[2017-11-27] MEDS: POLYETHYLENE GLYCOL 3350 17 GM/Dose PACKET PO SCH (10:18)
[2017-11-27] MEDS: Insulin Detemir 100 units/ml Vial (Levemir) SC SCH ×2 (10:39→22:15)
[2017-11-28] MEDS: guaiFENesin 100 mg/5 ml Syrup UD PO PRN (00:04)
[2017-11-28] MEDS: Albuterol-Ipratrop 3 mg / 0.5 (3 ml) UD IH SCH ×4 (03:30→21:20)
[2017-11-28] MEDS: Levothyroxine 75 MCG TAB PO SCH (05:41)
[2017-11-28] MEDS: Pantoprazole 40 mg EC Tab PO SCH (05:41)
[2017-11-28] MEDS: Insulin Lispro (humaLOG) MEDIUM Coverage SC SCH ×4 (06:37→22:02)
[2017-11-28] MEDS: Budesonide 0.5 mg/2 ml Inhal Susp UD IH SCH ×2 (08:32→21:20)
--- NOTE | 2017-11-28 08:49 | PN ---
DATE: 11/28/2017 PULMONARY NOTE SUBJECTIVE: The patient appears very comfortable this morning. She is not short of breath at rest. She is awake and alert. PHYSICAL EXAMINATION VITAL SIGNS: Last temperature recorded is 98.4, pulse is 61, respirations 18, blood pressure 121/97. Oxygen saturation on nasal cannula is 97%. HEENT: Normocephalic, atraumatic. No JVD. CARDIOVASCULAR: Positive S1, S2. No S3 gallop. LUNGS: Decreased breath sounds at the bases. Minimal/less rhonchi. No wheezing. EXTREMITIES: Mild edema. No cyanosis, no clubbing. Calves are nontender to palpation. GI: Abdomen is soft, nontender, nondistended. Bowel sounds are positive. SKIN: No acute rash. NEUROLOGIC: Limited at the present time. IMPRESSION: 1. Progressive weakness. 2. Advanced myotonic dystrophy. 3. Chronic obstructive pulmonary disease. 4. Chronic respiratory insufficiency. PLAN: The patient appears very comfortable this morning. She is not short of breath at rest. She appears more awake and alert. She does state to feeling better overall. I did discuss the case with the night nurse at length. The night nurse informed me that the patient did have a good night, and continues to wear her BiPAP. On physical exam, there is certainly less bronchospasm noted. In addition, the alveolar-arterial gradient is also less. I will continue with the current nebulizer treatments and inhaled steroids for now. I will also continue with the aspiration precautions. The clinical status of the patient is certainly improved - compared to the initial presentation. However, again, the future status/prognosis for this patient does remain poor. All are aware. I will discuss the above with the attending physician. Adam Leyva MD MTDAminata
[2017-11-28] MEDS: POLYETHYLENE GLYCOL 3350 17 GM/Dose PACKET PO SCH (09:23)
[2017-11-28] MEDS: Enoxaparin 40 mg Syringe SC SCH (09:24)
[2017-11-28] MEDS: Potassium Chloride 10 mEq ER Tab PO SCH (09:24)
[2017-11-28] MEDS: Insulin Detemir 100 units/ml Vial (Levemir) SC SCH ×2 (09:24→22:03)
[2017-11-28] MEDS: Magnesium Oxide 400 mg Tab UD PO SCH ×2 (09:25→17:37)
--- NOTE | 2017-11-28 13:58 | CP.PCM.PN ---
<Mendel Aggarwal - Last Filed: 11/28/17 13:55> Subjective - Date & Time of Evaluation Date of Evaluation: 11/28/17 Time of Evaluation: 07:40 - Subjective Subjective: IM Hospitalist Progress Note Patient seen and examined at bedside in the TCU. Reports compliance with BiPAP overnight (nursing note confirms, had previously been refusing despite repeated recommendations from Pulm) and denies difficulty breathing this AM. Denies chest pain or dyspnea, nausea, emesis, diarrhea, dysuria, hematuria, focal weakness, or fevers/chills. Objective - Vital Signs/Intake and Output Vital Signs (last 24 hours): Temp Pulse Resp BP Pulse Ox 98.4 F 61 20 121/97 H 97 11/27/17 17:12 11/27/17 17:12 11/27/17 17:12 11/27/17 17:12 11/27/17 17:12 - Medications Medications: Current Medications Albuterol/Ipratropium (Duoneb 3 Mg/0.5 Mg (3 Ml) Ud) 3 ml IH [id number] Last Admin: 11/28/17 08:32 Dose: 3 ml Budesonide (Pulmicort Respules) 0.5 mg IH [id number] [facility] PRN Reason: Protocol Last Admin: 11/28/17 08:32 Dose: 0.5 mg Ciprofloxacin (Cipro) 500 mg PO Q12 [facility] PRN Reason: Protocol Stop: 11/30/17 20:01 Last Admin: 11/28/17 09:24 Dose: 500 mg Docusate Sodium (Colace) 100 mg PO BID [facility] PRN Reason: Protocol Last Admin: 11/28/17 09:22 Dose: Not Given Enoxaparin Sodium (Lovenox) 40 mg SC 0600 [facility] PRN Reason: Protocol Fenofibrate (Tricor) 145 mg PO DAILY [facility] PRN Reason: Protocol Last Admin: 11/28/17 09:25 Dose: 145 mg Guaifenesin (Robitussin) 100 mg PO Q4H PRN; Protocol PRN Reason: Cough Last Admin: 11/28/17 00:04 Dose: 100 mg Ibuprofen (Motrin Tab) 600 mg PO Q6H PRN; Protocol PRN Reason: Pain, moderate (4-7) Last Admin: 11/26/17 23:29 Dose: 600 mg Insulin Detemir (Levemir) 5 unit SC Q12 [facility] Last Admin: 11/28/17 09:24 Dose: 5 unit Insulin Human Lispro (Humalog Med) 0 units SC ACHS [facility] PRN Reason: Protocol Last Admin: 11/28/17 11:28 Dose: Not Given Levalbuterol HCl (Xopenex) 0.63 mg IH Q2H PRN; Protocol PRN Reason: Shortness of Breath Last Admin: 11/27/17 07:32 Dose: 0.63 mg Levothyroxine Sodium (Synthroid) 75 mcg PO 0630 [facility] PRN Reason: Protocol Last Admin: 11/28/17 05:41 Dose: 75 mcg Magnesium Oxide (Mag-Ox) 400 mg PO BID [facility] Last Admin: 11/28/17 09:25 Dose: 400 mg Pantoprazole Sodium (Protonix Ec Tab) 40 mg PO 0600 [facility] PRN Reason: Protocol Last Admin: 11/28/17 05:41 Dose: 40 mg Polyethylene Glycol (Miralax) 17 gm PO DAILY [facility] PRN Reason: Protocol Last Admin: 11/28/17 09:23 Dose: Not Given Potassium Chloride (Klor-Con 10) 10 meq PO MWF [facility] PRN Reason: Protocol - Additional Findings Additional findings: - Constitutional Appears: Non-toxic, No Acute Distress, Older Than Stated Age, Chronically Ill - Head Exam Head Exam: ATRAUMATIC, NORMAL INSPECTION, NORMOCEPHALIC - Eye Exam Eye Exam: EOMI, Normal appearance. absent: Conjunctival injection, Scleral icterus Pupil Exam: absent: Irregular, Unequal - ENT Exam ENT Exam: Mucous Membranes Moist - Neck Exam Neck Exam: Normal Inspection - Respiratory Exam Respiratory Exam: Decreased Breath Sounds (mildly decreased breath sounds in all denis), Clear to Ausculation Bilateral, NORMAL BREATHING PATTERN - Cardiovascular Exam Cardiovascular Exam: REGULAR RHYTHM, RRR, +S1, +S2. absent: Bradycardia, Tachycardia, Irregular Rhythm, JVD, +S4 - GI/Abdominal Exam GI & Abdominal Exam: Soft, Normal Bowel Sounds. absent: Distended, Firm, Guarding, Rigid, Tenderness, Diminished Bowel Sounds, Hyperactive Bowel Sounds, Hypoactive Bowel Sounds, Organomegaly, Pulsatile Mass - Extremities Exam Extremities Exam: Normal Capillary Refill, Normal Inspection. absent: Calf Tenderness, Pedal Edema, Tenderness Additional comments: +2 radials bilaterally - Neurological Exam awake and alert, following all commands, moving all extremities spontaneously motor appears grossly intact and equal while supine in bed - Psychiatric Exam Psychiatric exam: Normal Affect, Normal Mood - Skin Skin Exam: Dry, Normal Color, Warm Additional comments: small healed scab along inferior portion of Left knee, pt reports from fall Assessment and Plan - Assessment and Plan (Free Text) Assessment: This is a 57 year old female with PMH HTN, COPD, mytonic dysthrophy type 1, diabetes, COPD, hypothyroidism, rectal cancer s/p resection and chemo, presents s/p mechanical fall, now admitted to TCU for reconditioning prior to returning home, as pt refuses any other rehab or long-term placement. Plan: 1) Mechanical fall: - Head CT on admit could not be done as patient was noncompliant with exam - Knee and Hip x-rays negative for fx - Echo EF 2016 57.9%. normal - EKG in the ED notable for bifasicular block not present on prior EKGs within past year; not present on repeat EKG, which is consistent with prior EKGs ( sinus rhythm, borderline 1st degree AV block) - CPK low, so no rhabdo - Now in TCU for reconditioning, continue with PT/OT 2) Constipation - cont miralax and docusate - s/p mag-citrate x1, pt reports 1 BM after mag citrate 3) Hx COPD - CXR on admit - no acute disease - Clear lung sounds - Chronically non-compliant with Bipap, ordered while inpt; wore for last 3 nights - Duonebs q6, xopenex q2 prn, budesonide q12 - Dr. Leyva (Pulm) consulted, appreciate all recs; continue nebs and inhaled steroids, Bipap 4) Hyperglycemia and hx of DM - improved - 2/2 medication noncompliance vs elevated 2/2 fall and acute stress - BG 92 - 241 since admission, hx of frequent hypoglycemic episodes as well, so requires caution with all hypoglycemics - continue Med-ISS, if BG worsens can increased to high-dose ISS - Hgb AIC 12.9, still poorly controlled 5) Hx of hypothyoridism: - TSH wnl - continue home synthroid 6) Hx myotonic dystrophy -now in TCU for reconditioning, continue PT/OT 7) UTI - UA notable for moderate blood, positive nitrate, moderate leuk esterase, TNTC WBCs/RBCs, and large bacteria - Continue Cipro BID - no systemic signs of infection, no elevated WBCs or fevers, so just UTI, not urosepsis Dispo: TCU for reconditioning, pending d/c home after due to refusal for other rehab or long-term placement, continue Abx for UTI, to be followed at home by Dr. Contreras after discharge FEN: Consistent Carb Access: peripheral IV Consults: Pulm Ppx: Protonix for GI, SCDs for DVT Pt seen, reviewed, and discussed with attending, Dr. Cook. <Arielel Cook - Last Filed: 11/28/17 16:39> Objective - Vital Signs/Intake and Output Vital Signs (last 24 hours): Temp Pulse Resp BP Pulse Ox 98.4 F 61 20 121/97 H 97 11/27/17 17:12 11/27/17 17:12 11/27/17 17:12 11/27/17 17:12 11/27/17 17:12 - Medications Medications: Current Medications Albuterol/Ipratropium (Duoneb 3 Mg/0.5 Mg (3 Ml) Ud) 3 ml IH [id number] [facility] Last Admin: 11/28/17 14:01 Dose: 3 ml Budesonide (Pulmicort Respules) 0.5 mg IH [id number] [facility]E PRN Reason: Protocol Last Admin: 11/28/17 08:32 Dose: 0.5 mg Ciprofloxacin (Cipro) 500 mg PO Q12 [facility] PRN Reason: Protocol Stop: 11/30/17 20:01 Last Admin: 11/28/17 09:24 Dose: 500 mg Docusate Sodium (Colace) 100 mg PO BID [facility] PRN Reason: Protocol Last Admin: 11/28/17 09:22 Dose: Not Given Enoxaparin Sodium (Lovenox) 40 mg SC 0600 [facility] PRN Reason: Protocol Fenofibrate (Tricor) 145 mg PO DAILY [facility] PRN Reason: Protocol Last Admin: 11/28/17 09:25 Dose: 145 mg Guaifenesin (Robitussin) 100 mg PO Q4H PRN; Protocol PRN Reason: Cough Last Admin: 11/28/17 00:04 Dose: 100 mg Ibuprofen (Motrin Tab) 600 mg PO Q6H PRN; Protocol PRN Reason: Pain, moderate (4-7) Last Admin: 11/26/17 23:29 Dose: 600 mg Insulin Detemir (Levemir) 5 unit SC Q12 [facility] Last Admin: 11/28/17 09:24 Dose: 5 unit Insulin Human Lispro (Humalog Med) 0 units SC ACHS [facility] PRN Reason: Protocol Last Admin: 11/28/17 11:28 Dose: Not Given Levalbuterol HCl (Xopenex) 0.63 mg IH Q2H PRN; Protocol PRN Reason: Shortness of Breath Last Admin: 11/27/17 07:32 Dose: 0.63 mg Levothyroxine Sodium (Synthroid) 75 mcg PO 0630 [facility] PRN Reason: Protocol Last Admin: 11/28/17 05:41 Dose: 75 mcg Magnesium Oxide (Mag-Ox) 400 mg PO BID [facility] Last Admin: 11/28/17 09:25 Dose: 400 mg Pantoprazole Sodium (Protonix Ec Tab) 40 mg PO 0600 [facility] PRN Reason: Protocol Last Admin: 11/28/17 05:41 Dose: 40 mg Polyethylene Glycol (Miralax) 17 gm PO DAILY [facility] PRN Reason: Protocol Last Admin: 11/28/17 09:23 Dose: Not Given Potassium Chloride (Klor-Con 10) 10 meq PO MWF [facility] PRN Reason: Protocol Attending/Attestation - Attestation I have personally seen and examined this patient.: Yes I have fully participated in the care of the patient.: Yes I have reviewed all pertinent clinical information, including history, physical exam and plan: Yes Notes (Text): I have seen and examined patient with the resident. Agree with the above note dictated by the resident. Briefly this is 57 year old female with PMH of HTN, COPD, myotonic dysthrophy type 1, IDDM, hypothyroidism, rectal cancer s/p resection and chemo, presents who was admitted after mechanical fall. Hip x-ray and knee x-rays negative. She has EColi UTI on cipro. Continue bipap at night. Increase levemir dosage. Hba1c is 12.9. Diabetic education will be provided.Will continue miralax. Upon discharge the patient will follow-up with PMD Dr. Purdy. Dr Arielle Cook
[2017-11-29] MEDS: guaiFENesin 100 mg/5 ml Syrup UD PO PRN (00:02)
[2017-11-29] MEDS: Albuterol-Ipratrop 3 mg / 0.5 (3 ml) UD IH SCH ×4 (01:04→20:18)
[2017-11-29] MEDS: Pantoprazole 40 mg EC Tab PO SCH (05:44)
[2017-11-29] MEDS: Enoxaparin 40 mg Syringe SC SCH (05:44)
[2017-11-29] MEDS: Levothyroxine 75 MCG TAB PO SCH (05:44)
[2017-11-29] MEDS: Insulin Lispro (humaLOG) MEDIUM Coverage SC SCH ×4 (06:34→21:47)
--- NOTE | 2017-11-29 07:25 | PN ---
DATE: 11/29/2017 PULMONARY NOTE SUBJECTIVE: The patient appears comfortable this morning. She is not short of breath at rest. She is currently on BiPAP. PHYSICAL EXAMINATION: VITAL SIGNS: Temperature is 98.4, pulse 66, respirations 18, blood pressure 121/97. Oxygen saturation-last measured on nasal cannula-97%. HEENT: Normocephalic, atraumatic. NECK: No JVD. CARDIOVASCULAR: Positive S1, S2. No S3 gallop. LUNGS: Decreased breath sounds at the bases. Very minimal rhonchi. No wheezing. EXTREMITIES: Mild edema. No cyanosis, no clubbing. Calves are nontender to palpation. GI: Abdomen is soft, nontender, nondistended. Bowel sounds are positive. SKIN: No acute rash. NEUROLOGIC: Exam limited at the present time. IMPRESSION: 1. Progressive weakness. 2. Advanced myotonic dystrophy. 3. Chronic obstructive pulmonary disease. 4. Chronic respiratory insufficiency. PLAN: The patient appears very comfortable this morning. She is not short of breath at rest. She is currently wearing her BiPAP. She does state to feeling better overall. I did discuss the case with the night nurse at length. The night nurse stated that the patient had a good night. On physical exam, there is only minimal bronchospasm noted. In addition, the alveolar-arterial gradient is much less. I will continue with the current nebulizer treatments and inhaled steroids for now. I will also continue with the aspiration precautions. The clinical status of this patient is certainly improved-compared to the initial presentation. However, unfortunately, her overall status/prognosis does remain poor. I will discuss the above with the attending physician. Adam Leyva MD MTDAminata
[2017-11-29] MEDS: Budesonide 0.5 mg/2 ml Inhal Susp UD IH SCH ×2 (09:19→20:18)
[2017-11-29] MEDS: Magnesium Oxide 400 mg Tab UD PO SCH ×2 (10:21→17:36)
[2017-11-29] MEDS: POLYETHYLENE GLYCOL 3350 17 GM/Dose PACKET PO SCH (10:21)
[2017-11-29] MEDS: Insulin Detemir 100 units/ml Vial (Levemir) SC SCH ×2 (12:25→21:47)
[2017-11-30] MEDS: Albuterol-Ipratrop 3 mg / 0.5 (3 ml) UD IH SCH ×4 (02:01→21:04)
[2017-11-30] MEDS: Enoxaparin 40 mg Syringe SC SCH (05:37)
[2017-11-30] MEDS: Levothyroxine 75 MCG TAB PO SCH (05:37)
[2017-11-30] MEDS: Pantoprazole 40 mg EC Tab PO SCH (05:37)
[2017-11-30] MEDS: Insulin Lispro (humaLOG) MEDIUM Coverage SC SCH ×4 (06:39→21:45)
[2017-11-30] MEDS: Budesonide 0.5 mg/2 ml Inhal Susp UD IH SCH ×2 (07:27→21:04)
--- NOTE | 2017-11-30 08:22 | PN ---
DATE: 11/30/2017 PULMONARY NOTE SUBJECTIVE: The patient appears comfortable this morning. She is not short of breath at rest. PHYSICAL EXAMINATION: VITAL SIGNS: Temperature is 97.8, pulse 61, respirations 18/20, blood pressure 110/73. Oxygen saturation on BiPAP is 98%. HEENT: Normocephalic, atraumatic. NECK: No JVD. CARDIOVASCULAR: Positive S1, S2. No S3 gallop. LUNGS: Decreased breath sounds at the bases. Minimal/less rhonchi. No wheezing. EXTREMITIES: Mild edema. No cyanosis, no clubbing. Calves are nontender to palpation. GI: Abdomen is soft, nontender, nondistended. Bowel sounds are positive. SKIN: No acute rash. NEUROLOGIC: Exam limited at the present time. IMPRESSION: 1. Progressive weakness. 2. Advanced myotonic dystrophy. 3. Chronic obstructive pulmonary disease. 4. Chronic respiratory insufficiency. PLAN: The patient appears comfortable this morning. She is not short of breath at rest. She is wearing her BiPAP. I did discuss the case with the night nurse at length. The night nurse stated that the patient had a very good night. On physical exam, there is only minimal bronchospasm noted. In addition, the alveolar-arterial gradient is much less. I will continue with the current nebulizer treatments and inhaled steroids for now. I will also continue with the aspiration precautions. Clinical status of the patient is certainly improved-compared to the initial presentation. However, unfortunately, her overall status/prognosis does remain poor. I will discuss the above with the attending physician. Adam Leyva MD MTDD
[2017-11-30 08:23] LABS: HEMOGLOBIN 12.4 g/dL (12.0-16.0); MEAN CELL VOLUME 96.2 fl (80.0-105.0); MEAN CORPUSCULAR HEMOGLOBIN 27.6 pg (25.0-35.0); MEAN CORPUSCULAR HGB CONC 28.6 g/dl (31.0-37.0); MEAN PLATELET VOLUME 12.3 fl (7.0-11.0); RBC 4.5 10^6/uL (3.5-6.1); RED CELL DISTRIBUTION WIDTH 14.7 % (11.5-14.5)
[2017-11-30 08:39] LABS: BLOOD UREA NITROGEN 36 mg/dL (7-21); CALCIUM 10.3 mg/dL (8.4-10.5); GFR AFRICAN-AMERICAN > 60; GFR NON-AFRICAN AMERICAN 51
[2017-11-30] MEDS: Potassium Chloride 10 mEq ER Tab PO SCH (10:54)
[2017-11-30] MEDS: POLYETHYLENE GLYCOL 3350 17 GM/Dose PACKET PO SCH (11:00)
[2017-11-30] MEDS: Magnesium Oxide 400 mg Tab UD PO SCH ×2 (11:00→17:49)
--- NOTE | 2017-11-30 11:23 | CP.PCM.PN ---
<Mendel Aggarwal - Last Filed: 11/30/17 11:43> Subjective - Date & Time of Evaluation Date of Evaluation: 11/30/17 Time of Evaluation: 07:40 - Subjective Subjective: IM Hospitalist Progress Note Patient seen and examined at bedside in the TCU. Only complaint today is of non -productive cough, otherwise no acute complaints, and no acute issues reported overnight. Been compliant with Bipap x5 days. Denies chest pain or dyspnea, nausea, emesis, diarrhea, dysuria, hematuria, focal weakness, or fevers/chills. Objective - Vital Signs/Intake and Output Vital Signs (last 24 hours): Temp Pulse Resp BP Pulse Ox 97.8 F 61 20 110/73 98 11/30/17 06:00 11/30/17 06:00 11/30/17 06:00 11/30/17 06:00 11/30/17 06:00 - Medications Medications: Current Medications Albuterol/Ipratropium (Duoneb 3 Mg/0.5 Mg (3 Ml) Ud) 3 ml IH [id number] GABE Last Admin: 11/30/17 07:27 Dose: 3 ml Budesonide (Pulmicort Respules) 0.5 mg IH [id number] G[facility]E PRN Reason: Protocol Last Admin: 11/30/17 07:27 Dose: 0.5 mg Ciprofloxacin (Cipro) 500 mg PO Q12 [facility] PRN Reason: Protocol Stop: 11/30/17 20:01 Last Admin: 11/30/17 10:53 Dose: 500 mg Docusate Sodium (Colace) 100 mg PO BID [facility]E PRN Reason: Protocol Last Admin: 11/30/17 10:53 Dose: Not Given Enoxaparin Sodium (Lovenox) 40 mg SC 0600 [facility] PRN Reason: Protocol Last Admin: 11/30/17 05:37 Dose: 40 mg Fenofibrate (Tricor) 145 mg PO DAILY [facility]E PRN Reason: Protocol Last Admin: 11/30/17 11:00 Dose: 145 mg Guaifenesin (Robitussin) 100 mg PO Q4H PRN; Protocol PRN Reason: Cough Last Admin: 11/29/17 00:02 Dose: 100 mg Ibuprofen (Motrin Tab) 600 mg PO Q6H PRN; Protocol PRN Reason: Pain, moderate (4-7) Last Admin: 11/26/17 23:29 Dose: 600 mg Insulin Detemir (Levemir) 7 unit SC Q12 [facility] Last Admin: 11/29/17 21:47 Dose: 7 unit Insulin Human Lispro (Humalog Med) 0 units SC ACHS [facility] PRN Reason: Protocol Last Admin: 11/30/17 06:39 Dose: 1 units Levalbuterol HCl (Xopenex) 0.63 mg IH Q2H PRN; Protocol PRN Reason: Shortness of Breath Last Admin: 11/27/17 07:32 Dose: 0.63 mg Levothyroxine Sodium (Synthroid) 75 mcg PO 0630 [facility] PRN Reason: Protocol Last Admin: 11/30/17 05:37 Dose: 75 mcg Magnesium Oxide (Mag-Ox) 400 mg PO BID [facility] Last Admin: 11/30/17 11:00 Dose: 400 mg Pantoprazole Sodium (Protonix Ec Tab) 40 mg PO 0600 [facility] PRN Reason: Protocol Last Admin: 11/30/17 05:37 Dose: 40 mg Polyethylene Glycol (Miralax) 17 gm PO DAILY [facility]E PRN Reason: Protocol Last Admin: 11/30/17 11:00 Dose: Not Given Potassium Chloride (Klor-Con 10) 10 meq PO MWF [facility] PRN Reason: Protocol Last Admin: 11/30/17 10:54 Dose: 10 meq - Labs Labs: 11/30/17 08:10 11/30/17 08:10 - Additional Findings Additional findings: - Constitutional Appears: Non-toxic, No Acute Distress, Older Than Stated Age, Chronically Ill - Head Exam Head Exam: ATRAUMATIC, NORMAL INSPECTION, NORMOCEPHALIC - Eye Exam Eye Exam: EOMI, Normal appearance. absent: Conjunctival injection, Scleral icterus Pupil Exam: absent: Irregular, Unequal - ENT Exam ENT Exam: Mucous Membranes Moist - Neck Exam Neck Exam: Normal Inspection - Respiratory Exam Respiratory Exam: Decreased Breath Sounds (mildly decreased breath sounds in all denis), Clear to Ausculation Bilateral, NORMAL BREATHING PATTERN - Cardiovascular Exam Cardiovascular Exam: REGULAR RHYTHM, RRR, +S1, +S2. absent: Bradycardia, Tachycardia, Irregular Rhythm, JVD, +S4 - GI/Abdominal Exam GI & Abdominal Exam: Soft, Normal Bowel Sounds. absent: Distended, Firm, Guarding, Rigid, Tenderness, Diminished Bowel Sounds, Hyperactive Bowel Sounds, Hypoactive Bowel Sounds, Organomegaly, Pulsatile Mass - Extremities Exam Extremities Exam: Normal Capillary Refill, Normal Inspection. absent: Calf Tenderness, Pedal Edema, Tenderness Additional comments: +2 radials bilaterally - Neurological Exam awake and alert, following all commands, moving all extremities spontaneously motor appears grossly intact and equal while supine in bed - Psychiatric Exam Psychiatric exam: Normal Affect, Normal Mood - Skin Skin Exam: Dry, Normal Color, Warm Additional comments: small healed scab along inferior portion of Left knee, pt reports from fall Assessment and Plan - Assessment and Plan (Free Text) Assessment: This is a 57 year old female with PMH HTN, COPD, mytonic dysthrophy type 1, diabetes, COPD, hypothyroidism, rectal cancer s/p resection and chemo, presents s/p mechanical fall, now admitted to TCU for reconditioning prior to returning home, as pt refuses any other rehab or long-term placement. Plan: 1) Mechanical fall: - Head CT on admit could not be done as patient was noncompliant with exam - Knee and Hip x-rays negative for fx - Echo EF 2016 57.9%. normal - EKG in the ED notable for bifasicular block not present on prior EKGs within past year; not present on repeat EKG, which is consistent with prior EKGs ( sinus rhythm, borderline 1st degree AV block) - CPK low, so no rhabdo - TCU for reconditioning, continue with PT/OT 2) Constipation - resolved - hold miralax and docusate but to multiple BMs - s/p mag-citrate x1 due to constipation 3) Hx COPD - CXR on admit - no acute disease - Clear lung sounds - Chronically non-compliant with Bipap, ordered while inpt; wore for last 3 nights - Duonebs q6, xopenex q2 prn, budesonide q12 - Dr. Leyva (Pulm) consulted, appreciate all recs; continue nebs and inhaled steroids, Bipap 4) Hyperglycemia and hx of DM - improved - 2/2 medication noncompliance vs elevated 2/2 fall and acute stress - BG 92 - 323 since admission, hx of frequent hypoglycemic episodes as well, so requires caution with all hypoglycemics - Levemir increased to 7 unit HS, continue Med-ISS, if BG worsens can increased to high-dose ISS - Hgb AIC 12.9, still poorly controlled 5) Hx of hypothyoridism: - TSH wnl - continue home synthroid 6) Hx myotonic dystrophy -now in TCU for reconditioning, continue PT/OT 7) UTI - UA notable for moderate blood, positive nitrate, moderate leuk esterase, TNTC WBCs/RBCs, and large bacteria - Continue Cipro BID, completing BID course today - no systemic signs of infection, no elevated WBCs or fevers, so just UTI, not urosepsis Dispo: TCU for reconditioning, pending d/c home after due to refusal for other rehab or long-term placement, completing abx for UTI today, to be followed at home by Dr. Contreras after discharge FEN: Consistent Carb Access: peripheral IV Consults: Pulm Ppx: Protonix for GI, SCDs for DVT Pt seen, reviewed, and discussed with attending, Dr. Cook. <Arielle Cook - Last Filed: 11/30/17 15:11> Objective - Vital Signs/Intake and Output Vital Signs (last 24 hours): Temp Pulse Resp BP Pulse Ox 97.8 F 61 20 110/73 98 11/30/17 06:00 11/30/17 06:00 11/30/17 06:00 11/30/17 06:00 11/30/17 06:00 - Medications Medications: Current Medications Albuterol/Ipratropium (Duoneb 3 Mg/0.5 Mg (3 Ml) Ud) 3 ml IH [id number] [facility] Last Admin: 11/30/17 13:16 Dose: 3 ml Budesonide (Pulmicort Respules) 0.5 mg IH [id number] GABE PRN Reason: Protocol Last Admin: 11/30/17 07:27 Dose: 0.5 mg Ciprofloxacin (Cipro) 500 mg PO Q12 [facility] PRN Reason: Protocol Stop: 11/30/17 20:01 Last Admin: 11/30/17 10:53 Dose: 500 mg Docusate Sodium (Colace) 100 mg PO BID [facility]E PRN Reason: Protocol Last Admin: 11/30/17 10:53 Dose: Not Given Enoxaparin Sodium (Lovenox) 40 mg SC 0600 [facility] PRN Reason: Protocol Last Admin: 11/30/17 05:37 Dose: 40 mg Fenofibrate (Tricor) 145 mg PO DAILY [facility] PRN Reason: Protocol Last Admin: 11/30/17 11:00 Dose: 145 mg Guaifenesin (Robitussin) 100 mg PO Q4H PRN; Protocol PRN Reason: Cough Last Admin: 11/29/17 00:02 Dose: 100 mg Ibuprofen (Motrin Tab) 600 mg PO Q6H PRN; Protocol PRN Reason: Pain, moderate (4-7) Last Admin: 11/26/17 23:29 Dose: 600 mg Insulin Detemir (Levemir) 7 unit SC Q12 [facility] Last Admin: 11/30/17 11:36 Dose: 7 unit Insulin Human Lispro (Humalog Med) 0 units SC ACHS [facility] PRN Reason: Protocol Last Admin: 11/30/17 13:03 Dose: 3 units Levalbuterol HCl (Xopenex) 0.63 mg IH Q2H PRN; Protocol PRN Reason: Shortness of Breath Last Admin: 11/27/17 07:32 Dose: 0.63 mg Levothyroxine Sodium (Synthroid) 75 mcg PO 0630 [facility] PRN Reason: Protocol Last Admin: 11/30/17 05:37 Dose: 75 mcg Magnesium Oxide (Mag-Ox) 400 mg PO BID [facility] Last Admin: 11/30/17 11:00 Dose: 400 mg Pantoprazole Sodium (Protonix Ec Tab) 40 mg PO 0600 [facility] PRN Reason: Protocol Last Admin: 11/30/17 05:37 Dose: 40 mg Polyethylene Glycol (Miralax) 17 gm PO DAILY [facility] PRN Reason: Protocol Last Admin: 11/30/17 11:00 Dose: Not Given Potassium Chloride (Klor-Con 10) 10 meq PO MWF [facility] PRN Reason: Protocol Last Admin: 11/30/17 10:54 Dose: 10 meq - Labs Labs: 11/30/17 08:10 11/30/17 08:10 Attending/Attestation - Attestation I have personally seen and examined this patient.: Yes I have fully participated in the care of the patient.: Yes I have reviewed all pertinent clinical information, including history, physical exam and plan: Yes Notes (Text): I have seen and examined patient with the resident. Agree with the above note dictated by the resident. Briefly this is 57 year old female with PMH of HTN, COPD, myotonic dysthrophy type 1, IDDM, hypothyroidism, rectal cancer s/p resection and chemo, presents who was admitted after mechanical fall. Hip x-ray and knee x-rays negative. She has EColi UTI on cipro. Continue bipap at night. Continue levemir. Hba1c is 12.9. Diabetic education will be provided.Will hold miralax. Diarrhea has stopped. Upon discharge the patient will follow-up with PMD Dr. Purdy. Dr Arielle Cook
[2017-11-30] MEDS: Insulin Detemir 100 units/ml Vial (Levemir) SC SCH ×2 (11:36→21:46)
[2017-11-30] MEDS: guaiFENesin 100 mg/5 ml Syrup UD PO PRN (19:32)
[2017-12-01] MEDS: Albuterol-Ipratrop 3 mg / 0.5 (3 ml) UD IH SCH ×4 (01:40→20:00)
[2017-12-01] MEDS: Pantoprazole 40 mg EC Tab PO SCH (05:38)
[2017-12-01] MEDS: Levothyroxine 75 MCG TAB PO SCH (05:38)
[2017-12-01] MEDS: Enoxaparin 40 mg Syringe SC SCH (05:38)
[2017-12-01] MEDS: Insulin Lispro (humaLOG) MEDIUM Coverage SC SCH ×5 (06:34→21:40)
[2017-12-01] MEDS: Budesonide 0.5 mg/2 ml Inhal Susp UD IH SCH ×2 (07:13→20:00)
[2017-12-01] MEDS: Insulin Detemir 100 units/ml Vial (Levemir) SC SCH ×2 (11:11→21:40)
[2017-12-01] MEDS: Magnesium Oxide 400 mg Tab UD PO SCH ×2 (11:12→17:31)
[2017-12-01] MEDS: POLYETHYLENE GLYCOL 3350 17 GM/Dose PACKET PO SCH (11:12)
--- NOTE | 2017-12-01 15:14 | PN ---
DATE: 12/01/2017 SUBJECTIVE: Cyndi feels good. She is awake and alert. She plans to go home in the morning. She has no complaints of shortness of breath. She told me of the loss of her sister that I had not known. This got her teary-eyed, but she bounced back fast and was happy to see me once again. PHYSICAL EXAMINATION: GENERAL: She is comfortable, lying in bed. VITAL SIGNS: Stable. She is afebrile. Respiratory rate 16, blood pressure 110/70, O2 sat is 98%. HEENT: Normocephalic, atraumatic. NECK: Supple. No JVD. No lymphadenopathy. No bruit. CARDIOVASCULAR: Regular rhythm. S1, S2 without murmur, gallop, or rub. LUNGS: Global decrease in breath sounds. No rales, rhonchi, or wheezes appreciated. ABDOMEN: Soft. Bowel sounds normoactive without mass, guarding, rebound, or organomegaly. EXTREMITIES: Reveal no clubbing, cyanosis, or edema. There is no Homans sign. SKIN: No rash or excoriation. NEUROLOGIC: Awake, alert, and oriented. No focal findings. CLINICAL IMPRESSION: 1. Advanced myotonic dystrophy. 2. Chronic obstructive pulmonary disease. 3. Chronic respiratory insufficiency, stable at the present time. PLAN: The patient will be discharged in the morning. She is planning to continue using her BiPAP when she is sleeping. Her medications had been reviewed. This will be discussed with her PMD prior to leaving the hospital. She should continue with these medications and follow up as necessary. Thank you for the opportunity to see Cyndi once again. If I can be of any further help with her care, please feel free to contact me. Changes of medications will be discussed. Rodger Brown MD
[2017-12-02] MEDS: Albuterol-Ipratrop 3 mg / 0.5 (3 ml) UD IH SCH ×4 (03:18→22:09)
[2017-12-02] MEDS: Levothyroxine 75 MCG TAB PO SCH (05:58)
[2017-12-02] MEDS: Pantoprazole 40 mg EC Tab PO SCH (05:58)
[2017-12-02] MEDS: Enoxaparin 40 mg Syringe SC SCH (05:59)
[2017-12-02] MEDS: Insulin Lispro (humaLOG) MEDIUM Coverage SC SCH ×4 (06:49→22:10)
[2017-12-02] MEDS: Budesonide 0.5 mg/2 ml Inhal Susp UD IH SCH ×2 (07:18→22:10)
[2017-12-02] MEDS: Magnesium Oxide 400 mg Tab UD PO SCH ×2 (10:03→17:06)
[2017-12-02] MEDS: Insulin Detemir 100 units/ml Vial (Levemir) SC SCH ×2 (10:03→21:56)
--- NOTE | 2017-12-02 14:21 | CP.PCM.PN ---
Subjective - Date & Time of Evaluation Date of Evaluation: 12/02/17 Time of Evaluation: 07:10 - Subjective Subjective: IM Hospitalist Progress Note Patient seen and examined at bedside in the TCU. Only complaint today is of non -productive cough, otherwise no acute complaints, and no acute issues reported overnight. Been compliant with Bipap x7 days. Denies chest pain or dyspnea, nausea, emesis, diarrhea, dysuria, hematuria, focal weakness, or fevers/chills. Objective - Vital Signs/Intake and Output Vital Signs (last 24 hours): Temp Pulse Resp BP Pulse Ox 97.3 F L 63 18 95/62 L 95 12/02/17 06:00 12/02/17 06:00 12/02/17 10:00 12/02/17 06:00 12/02/17 06:00 Intake and Output: 12/02/17 12/02/17 06:59 18:59 Intake Total 780 Output Total 1 Balance 779 - Medications Medications: Current Medications Albuterol/Ipratropium (Duoneb 3 Mg/0.5 Mg (3 Ml) Ud) 3 ml IH [id number] [id number] Last Admin: 12/02/17 13:30 Dose: 3 ml Budesonide (Pulmicort Respules) 0.5 mg IH [id number] [id number] PRN Reason: Protocol Last Admin: 12/02/17 07:18 Dose: 0.5 mg Enoxaparin Sodium (Lovenox) 40 mg SC 0600 [facility] PRN Reason: Protocol Last Admin: 12/02/17 05:59 Dose: 40 mg Fenofibrate (Tricor) 145 mg PO DAILY [facility]E PRN Reason: Protocol Last Admin: 12/02/17 10:03 Dose: 145 mg Guaifenesin (Robitussin) 100 mg PO Q4H PRN; Protocol PRN Reason: Cough Last Admin: 11/30/17 19:32 Dose: 100 mg Ibuprofen (Motrin Tab) 600 mg PO Q6H PRN; Protocol PRN Reason: Pain, moderate (4-7) Last Admin: 12/02/17 10:04 Dose: 600 mg Insulin Detemir (Levemir) 7 unit SC Q12 [facility] Last Admin: 12/02/17 10:03 Dose: 7 unit Insulin Human Lispro (Humalog Med) 0 units SC ACHS [facility] PRN Reason: Protocol Last Admin: 12/02/17 12:01 Dose: 3 units Levalbuterol HCl (Xopenex) 0.63 mg IH Q2H PRN; Protocol PRN Reason: Shortness of Breath Last Admin: 11/27/17 07:32 Dose: 0.63 mg Levothyroxine Sodium (Synthroid) 75 mcg PO 0630 [facility] PRN Reason: Protocol Last Admin: 12/02/17 05:58 Dose: 75 mcg Magnesium Oxide (Mag-Ox) 400 mg PO BID [facility] Last Admin: 12/02/17 10:03 Dose: 400 mg Pantoprazole Sodium (Protonix Ec Tab) 40 mg PO 0600 [facility] PRN Reason: Protocol Last Admin: 12/02/17 05:58 Dose: 40 mg Potassium Chloride (Klor-Con 10) 10 meq PO MWF [facility] PRN Reason: Protocol Last Admin: 11/30/17 10:54 Dose: 10 meq - Labs Labs: 11/30/17 08:10 11/30/17 08:10 - Additional Findings Additional findings: - Constitutional Appears: Non-toxic, No Acute Distress, Older Than Stated Age, Chronically Ill - Head Exam Head Exam: ATRAUMATIC, NORMAL INSPECTION, NORMOCEPHALIC - Eye Exam Eye Exam: EOMI, Normal appearance. absent: Conjunctival injection, Scleral icterus Pupil Exam: absent: Irregular, Unequal - ENT Exam ENT Exam: Mucous Membranes Moist - Neck Exam Neck Exam: Normal Inspection - Respiratory Exam Respiratory Exam: Decreased Breath Sounds (mildly decreased breath sounds in all denis), Clear to Ausculation Bilateral, NORMAL BREATHING PATTERN - Cardiovascular Exam Cardiovascular Exam: REGULAR RHYTHM, RRR, +S1, +S2. absent: Bradycardia, Tachycardia, Irregular Rhythm, JVD, +S4 - GI/Abdominal Exam GI & Abdominal Exam: Soft, Normal Bowel Sounds. absent: Distended, Firm, Guarding, Rigid, Tenderness, Diminished Bowel Sounds, Hyperactive Bowel Sounds, Hypoactive Bowel Sounds, Organomegaly, Pulsatile Mass - Extremities Exam Extremities Exam: Normal Capillary Refill, Normal Inspection. absent: Calf Tenderness, Pedal Edema, Tenderness Additional comments: +2 radials bilaterally - Neurological Exam awake and alert, following all commands, moving all extremities spontaneously motor appears grossly intact and equal while supine in bed - Psychiatric Exam Psychiatric exam: Normal Affect, Normal Mood - Skin Skin Exam: Dry, Normal Color, Warm small healed scab along inferior portion of Left knee, pt reports from fall Assessment and Plan - Assessment and Plan (Free Text) Assessment: This is a 57 year old female with PMH HTN, COPD, mytonic dysthrophy type 1, diabetes, COPD, hypothyroidism, rectal cancer s/p resection and chemo, presents s/p mechanical fall, now admitted to TCU for reconditioning prior to returning home, as pt refuses any other rehab or long-term placement. Plan: 1) Mechanical fall: - Head CT on admit could not be done as patient was noncompliant with exam - Knee and Hip x-rays negative for fx - Echo EF 2016 57.9%. normal - EKG in the ED notable for bifasicular block not present on prior EKGs within past year; not present on repeat EKG, which is consistent with prior EKGs ( sinus rhythm, borderline 1st degree AV block) - CPK low, so no rhabdo - TCU for reconditioning, continue with PT/OT 2) Constipation - resolved - hold miralax and docusate but to multiple BMs - s/p mag-citrate x1 due to constipation 3) Hx COPD - CXR on admit - no acute disease - Clear lung sounds - Chronically non-compliant with Bipap, ordered while inpt; wore for last 3 nights - Duonebs q6, xopenex q2 prn, budesonide q12 - Dr. Leyva (Pulm) consulted, appreciate all recs; continue nebs and inhaled steroids, Bipap 4) Hyperglycemia and hx of DM - improved - 2/2 medication noncompliance vs elevated 2/2 fall and acute stress - BG 92 - 323 since admission, hx of frequent hypoglycemic episodes as well, so requires caution with all hypoglycemics - Levemir 7 unit HS, continue Med-ISS, if BG worsens can increased to high-dose ISS - Hgb AIC 12.9, still poorly controlled 5) Hx of hypothyoridism: - TSH wnl - continue home synthroid 6) Hx myotonic dystrophy -now in TCU for reconditioning, continue PT/OT 7) UTI - UA notable for moderate blood, positive nitrate, moderate leuk esterase, TNTC WBCs/RBCs, and large bacteria - Continue Cipro BID, completing BID course today - no systemic signs of infection, no elevated WBCs or fevers, so just UTI, not urosepsis Dispo: TCU for reconditioning, pending d/c home after due to refusal for other rehab or long-term placement, completing abx for UTI today, to be followed at home by Dr. Contreras after discharge FEN: Consistent Carb Access: peripheral IV Consults: Pulm Ppx: Protonix for GI, SCDs for DVT Pt seen, reviewed, and discussed with attending, Dr. Cook.
[2017-12-03] MEDS: Albuterol-Ipratrop 3 mg / 0.5 (3 ml) UD IH SCH ×4 (03:20→21:15)
[2017-12-03] MEDS: Levothyroxine 75 MCG TAB PO SCH (06:26)
[2017-12-03] MEDS: Pantoprazole 40 mg EC Tab PO SCH (06:26)
[2017-12-03] MEDS: Enoxaparin 40 mg Syringe SC SCH (06:26)
[2017-12-03] MEDS: Budesonide 0.5 mg/2 ml Inhal Susp UD IH SCH ×2 (07:08→21:15)
[2017-12-03] MEDS: Insulin Lispro (humaLOG) MEDIUM Coverage SC SCH ×4 (07:16→21:27)
[2017-12-03] MEDS: Potassium Chloride 10 mEq ER Tab PO SCH (09:47)
[2017-12-03] MEDS: Magnesium Oxide 400 mg Tab UD PO SCH ×2 (09:48→17:11)
[2017-12-03] MEDS: Insulin Detemir 100 units/ml Vial (Levemir) SC SCH ×2 (09:48→21:59)
--- NOTE | 2017-12-03 09:53 | CP.PCM.DIS ---
<Mendel Aggarwal - Last Filed: 12/04/17 16:16> Provider - Provider Date of Admission: 11/25/17 16:13 Attending physician: Arielle Cook MD Primary care physician: Mayito Purdy MD Consults: Pulm: Gordon Time Spent in preparation of Discharge (in minutes): 35 Diagnosis - Discharge Diagnosis (1) Abrasion Status: Resolved Priority: Medium Comment: 2/2 mechanical fall (2) Fall Status: Acute Priority: High (3) Uncontrolled diabetes mellitus Status: Chronic Priority: High Comment: A1c 12.9 (4) COPD (chronic obstructive pulmonary disease) Status: Chronic Priority: Medium Comment: chronically non-compliant with home BiPAP/[facility] Course - Lab Results Lab Results: Most Recent Lab Values WBC 5.0 10^3/ul (4.5-11.0) 11/30/17 08:10 RBC 4.50 10^6/uL (3.5-6.1) 11/30/17 08:10 Hgb 12.4 g/dL (12.0-16.0) 11/30/17 08:10 Hct 43.3 % (36.0-48.0) 11/30/17 08:10 MCV 96.2 fl (80.0-105.0) 11/30/17 08:10 MCH 27.6 pg (25.0-35.0) 11/30/17 08:10 MCHC 28.6 g/dl (31.0-37.0) L 11/30/17 08:10 RDW 14.7 % (11.5-14.5) H 11/30/17 08:10 Plt Count 184 10^3/uL (120.0-450.0) 11/30/17 08:10 MPV 12.3 fl (7.0-11.0) H 11/30/17 08:10 Sodium 141 mmol/L (132-148) 11/30/17 08:10 Potassium 4.4 mmol/L (3.6-5.0) 11/30/17 08:10 Chloride 95 mmol/L (98-107) L 11/30/17 08:10 Carbon Dioxide 39 mmol/L (21-33) H 11/30/17 08:10 Anion Gap 11 (10-20) 11/30/17 08:10 BUN 36 mg/dL (7-21) H 11/30/17 08:10 Creatinine 1.1 mg/dl (0.7-1.2) 11/30/17 08:10 Est GFR ( Amer) > 60 11/30/17 08:10 Est GFR (Non-Af Amer) 51 11/30/17 08:10 POC Glucose (mg/dL) 178 mg/dL (65-110) H 12/03/17 05:12 Random Glucose 162 mg/dL (70-110) H 11/30/17 08:10 Calcium 10.3 mg/dL (8.4-10.5) 11/30/17 08:10 Phosphorus 3.2 mg/dL (2.5-4.5) 11/30/17 08:10 Magnesium 2.1 mg/dL (1.7-2.2) 11/30/17 08:10 - Hospital Course Hospital Course: This is a 57 year old female with PMH HTN, COPD, mytonic dysthrophy type 1, diabetes, COPD, hypothyroidism, rectal cancer s/p resection and chemo, presents s/p mechanical fall, now admitted to TCU for reconditioning prior to returning home, as pt refuses any other rehab or long-term placement. While in TCU, patient routinely participated with PT and performed satisfactorily. Due to persistent refusal to consider any long-term rehab/long-term care, patient is set to be discharged to home. She was instructed to resume all home medications as previously prescribed. She was also instructed to be compliant with her nightly Bipap/Trilogy vent use, and risks of not using as instructed were again explained to the patient. She was also instructed to make a follow up appointment with Dr. Contreras, as her PMD (Dr. Purdy) does not do home visits anymore, and Dr. Contreras does (both Dr. Purdy and Dr. Contreras aware of this plan and in agreement); Dr. Contreras to be notified of patient's discharge today. Patient expressed understanding and agreement with these instructions. She was then discharged. Of note, she has been noted to have borderline low blood pressures for the last several days (BP 80's-90's/50's-60's), but has been participating in PT every day without issue, and denies any dizziness or lightheadedness. Encouraged patient to increase her PO fluid intake. Remains medically safe for discharge. Patient seen, reviewed, and discussed with attending, Dr. Johansen. Discharge Exam - Additional Findings Additional findings: - Constitutional Appears: Non-toxic, No Acute Distress, Older Than Stated Age, Chronically Ill - Head Exam Head Exam: ATRAUMATIC, NORMAL INSPECTION, NORMOCEPHALIC - Eye Exam Eye Exam: EOMI, Normal appearance. absent: Conjunctival injection, Scleral icterus Pupil Exam: absent: Irregular, Unequal - ENT Exam ENT Exam: Mucous Membranes Moist - Neck Exam Neck Exam: Normal Inspection - Respiratory Exam Respiratory Exam: Decreased Breath Sounds (mildly decreased breath sounds in all denis), Clear to Ausculation Bilateral, NORMAL BREATHING PATTERN - Cardiovascular Exam Cardiovascular Exam: REGULAR RHYTHM, RRR, +S1, +S2. absent: Bradycardia, Tachycardia, Irregular Rhythm, JVD, +S4 - GI/Abdominal Exam GI & Abdominal Exam: Soft, Normal Bowel Sounds. absent: Distended, Firm, Guarding, Rigid, Tenderness, Diminished Bowel Sounds, Hyperactive Bowel Sounds, Hypoactive Bowel Sounds, Organomegaly, Pulsatile Mass - Extremities Exam Extremities Exam: Normal Capillary Refill, Normal Inspection. absent: Calf Tenderness, Pedal Edema, Tenderness Additional comments: +2 radials bilaterally - Neurological Exam awake and alert, following all commands, moving all extremities spontaneously motor appears grossly intact and equal while supine in bed - Psychiatric Exam Psychiatric exam: Normal Affect, Normal Mood - Skin Skin Exam: Dry, Normal Color, Warm small healed scab along inferior portion of Left knee, pt reports from fall Discharge Plan - Follow Up Plan Condition: GOOD Disposition: HOME/ ROUTINE Instructions: Chronic Obstructive Pulmonary Disease (COPD), Including Emphysema , Preventing Falls in the Older Adult, High Blood Pressure (DC), Diabetes Type 2 (DC), Generalized Weakness (DC), How to Use a CPAP or BPAP Machine Additional Instructions: -Please resume all home medications as previously prescribed. -Please wear your Bipap/Trilogy Vent at home as previously instructed. It is important in severe COPD to wear ventilatory support, otherwise you may build up an unsafe level of carbon dioxide. -It was repeatedly recommended that you go to a long-term rehab to build up strength prior to returning home, but you have continued to refuse, so you will be discharged to home, to continue with your home-health aides. -Please call Dr. Contreras to schedule a home-visit appointment for follow-up after discharge. -Please return to a hospital if you experience worsening or new concerning symptoms. Referrals: Mayito Purdy MD [Primary Care Provider] - Tom Contreras DO [Staff Provider] - <Adams Johansen - Last Filed: 12/04/17 17:05> Provider - Provider Date of Admission: 11/25/17 16:13 Attending physician: Arielle Cook MD Primary care physician: Mayito Purdy MD Hospital Course - Lab Results Lab Results: Most Recent Lab Values WBC 5.0 10^3/ul (4.5-11.0) 11/30/17 08:10 RBC 4.50 10^6/uL (3.5-6.1) 11/30/17 08:10 Hgb 12.4 g/dL (12.0-16.0) 11/30/17 08:10 Hct 43.3 % (36.0-48.0) 11/30/17 08:10 MCV 96.2 fl (80.0-105.0) 11/30/17 08:10 MCH 27.6 pg (25.0-35.0) 11/30/17 08:10 MCHC 28.6 g/dl (31.0-37.0) L 11/30/17 08:10 RDW 14.7 % (11.5-14.5) H 11/30/17 08:10 Plt Count 184 10^3/uL (120.0-450.0) 11/30/17 08:10 MPV 12.3 fl (7.0-11.0) H 11/30/17 08:10 Sodium 141 mmol/L (132-148) 11/30/17 08:10 Potassium 4.4 mmol/L (3.6-5.0) 11/30/17 08:10 Chloride 95 mmol/L (98-107) L 11/30/17 08:10 Carbon Dioxide 39 mmol/L (21-33) H 11/30/17 08:10 Anion Gap 11 (10-20) 11/30/17 08:10 BUN 36 mg/dL (7-21) H 11/30/17 08:10 Creatinine 1.1 mg/dl (0.7-1.2) 11/30/17 08:10 Est GFR ( Amer) > 60 11/30/17 08:10 Est GFR (Non-Af Amer) 51 11/30/17 08:10 POC Glucose (mg/dL) 132 mg/dL (65-110) H 12/04/17 04:45 Random Glucose 162 mg/dL (70-110) H 11/30/17 08:10 Calcium 10.3 mg/dL (8.4-10.5) 11/30/17 08:10 Phosphorus 3.2 mg/dL (2.5-4.5) 11/30/17 08:10 Magnesium 2.1 mg/dL (1.7-2.2) 11/30/17 08:10 Attending/Attestation - Attestation I have personally seen and examined this patient.: Yes I have fully participated in the care of the patient.: Yes I have reviewed all pertinent clinical information, including history, physical exam and plan: Yes Notes (Text): 12/04/17 17:01 Attending note; Patient seen and examined with resident in TCU. Patient is alert, awake and oriented. Not in any acute distress. Patient is a 57 year old female with PMH of HTN, COPD, myotonic dysthrophy type 1, IDDM, hypothyroidism, rectal cancer s/p resection and chemo, presents who was admitted after mechanical fall. Hip x-ray and knee x-rays negative. Continue bipap at night. pulmonary evaluation appreciated. Patient will follow-up with Dr. Brown as outpatient. Diabetes: Continue levemir. Hba1c is 12.9. Diabetic education will be provided. Upon discharge the patient will follow-up with PMD Dr. Purdy.
[2017-12-03 16:33] VITALS: BP 85/52; PULSE 71; RESP 18; TEMP 98.1; O2SAT 96
[2017-12-04] MEDS: Albuterol-Ipratrop 3 mg / 0.5 (3 ml) UD IH SCH ×2 (01:31→07:15)
[2017-12-04] MEDS: Enoxaparin 40 mg Syringe SC SCH (05:40)
[2017-12-04] MEDS: Levothyroxine 75 MCG TAB PO SCH (05:41)
[2017-12-04] MEDS: Pantoprazole 40 mg EC Tab PO SCH (05:41)
[2017-12-04] MEDS: Insulin Lispro (humaLOG) MEDIUM Coverage SC SCH (06:38)
[2017-12-04] MEDS: Budesonide 0.5 mg/2 ml Inhal Susp UD IH SCH (07:15)
[2017-12-04] MEDS: Magnesium Oxide 400 mg Tab UD PO SCH (09:44)
[2017-12-04] MEDS: Insulin Detemir 100 units/ml Vial (Levemir) SC SCH (10:43)
== END 2017-12-04 11:24 | disposition home or self-care (01) | DRG 945 ==
LOC: TRCU 16:13
PROVIDERS: ADMIT Internal Medicine; ATTEND Hospitalist
PROC: 5A09357 Assistance with Respiratory Ventilation, Less than 24 Consecutive Hours, Continuous Positive Airway Pressure (ICD-10-PCS; 2017-11-26)
PROC: F07Z9FZ Gait Training/Functional Ambulation Treatment using Assistive, Adaptive, Supportive or Protective Equipment (ICD-10-PCS; principal; 2017-11-27)
PROC: F07Z8ZZ Transfer Training Treatment (ICD-10-PCS; 2017-11-27)
PROC: F07Z5ZZ Bed Mobility Treatment (ICD-10-PCS; 2017-11-27)
PROC: F07L6ZZ Therapeutic Exercise Treatment of Musculoskeletal System - Lower Back / Lower Extremity (ICD-10-PCS; 2017-11-27)
PROC: F08Z2FZ Grooming/Personal Hygiene Treatment using Assistive, Adaptive, Supportive or Protective Equipment (ICD-10-PCS; 2017-12-01)
PROC: F08Z1FZ Dressing Techniques Treatment using Assistive, Adaptive, Supportive or Protective Equipment (ICD-10-PCS; 2017-12-01)
DX: R53.1 Weakness (principal); N39.0 Urinary tract infection, site not specified; B96.20 Unspecified Escherichia coli [E. coli] as the cause of diseases classified elsewhere; I10 Essential (primary) hypertension; G71.11 Myotonic muscular dystrophy; E10.65 Type 1 diabetes mellitus with hyperglycemia; J44.9 Chronic obstructive pulmonary disease, unspecified; K59.00 Constipation, unspecified; Z85.048 Personal history of other malignant neoplasm of rectum, rectosigmoid junction, and anus; Z91.19 Patient's noncompliance with other medical treatment and regimen; Z91.14 Patient's other noncompliance with medication regimen; Z88.0 Allergy status to penicillin

== ENCOUNTER 2018-03-01 05:35 | Inpatient (IN) | payer MEDICARE, MEDICAID ==
--- NOTE | 2018-03-01 05:56 | ED PDOC ---
Arrival/HPI - General Chief Complaint: Shortness Of Breath Time Seen by Provider: 03/01/18 05:39 Historian: Patient - History of Present Illness Narrative History of Present Illness (Text): 03/01/18 05:53 58 year old female, whose past medical history includes hypertension, COPD, mytonic dysthrophy type 1, diabetes, hypothyroidism, rectal cancer s/p resection and chemotheraphy, presents to the emergency department complaining of cough with yellow phlegm that began yesterday. Patient tried her nebulizer treatments at home with no relief. She denies any sick contact. Patient denies any fever, chills, chest pain, shortness of breath, nausea, vomiting, diarrhea, urinary symptoms, back pain, neck pain, headache, dizziness, or any other complaints. PMD: Dr. Contreras Time/Duration: 24 hours Symptom Onset: Sudden Symptom Course: Unchanged Activities at Onset: Light Context: Home Past Medical History - Provider Review Nursing Documentation Reviewed: Yes - Infectious Disease Hx of Infectious Diseases: None - Tetanus Immunization Tetanus Immunization: Unknown - Cardiac Hx Cardiac Disorders: No - Pulmonary Hx Chronic Obstructive Pulmonary Disease (COPD): Yes - Neurological Hx Neurological Disorder: No - HEENT Hx HEENT Disorder: Yes (eyeglasses) Hx Cataracts: Yes (bilateral cataract surgery) Other/Comment: removal of macular pocket of right eye/ jaw sx - Renal Hx Renal Disorder: No - Endocrine/Metabolic Hx Diabetes Mellitus Type 2: Yes Hx Hypothyroidism: Yes - Hematological/Oncological Hx Blood Disorders: Yes Hx Cancer: Yes - Integumentary Hx Dermatological Disorder: No Hx Basal Cell Carcinoma: No Hx Eczema: No Hx Melanoma: No Hx Psoriasis: No Hx Squamous Cell Carcinoma: No Other/Comment: dry skin to feet, multiple surgical scars to abd - Musculoskeletal/Rheumatological Hx Falls: Yes - Gastrointestinal Hx Gastrointestinal Disorders: Yes (RECTAL CA WAS ON CHEMO,HAD SX,PEG IN AND OUT ) Hx Colostomy: Yes (with reversal) Hx Diverticulitis: Yes Hx Gall Bladder Disease: Yes Other/Comment: fatty liver, colorectal sx - Genitourinary/Gynecological Hx Genitourinary Disorders: Yes (UTI) Hx Urinary Tract Infection: Yes - Psychiatric Hx Psychophysiologic Disorder: No Hx Substance Use: No - Surgical History Hx Cholecystectomy: Yes Hx Hysterectomy: Yes (2005) - Anesthesia Hx Anesthesia Reactions: No Hx Malignant Hyperthermia: No - Suicidal Assessment Feels Threatened In Home Enviroment: No Family/Social History - Physician Review Nursing Documentation Reviewed: Yes Family/Social History: No Known Family HX Smoking Status: Never Smoked Hx Alcohol Use: No Hx Substance Use: No Hx Substance Use Treatment: No Allergies/Home Meds Allergies/Adverse Reactions: Allergies Penicillins Allergy (Severe, Verified 03/01/18 05:41) ANGIOEDEMA Home Medications: Home Meds Medication Instructions Recorded Confirmed Albuterol 0.5% [Albuterol 0.5% 0.5 mg IH QID 11/22/17 03/01/18 Inhal Jennyfer (2.5 mg/0.5 ml) UD] Fenofibrate [Tricor] 145 mg PO DAILY 11/22/17 03/01/18 Furosemide [Lasix] 20 mg PO DAILY 11/22/17 03/01/18 Potassium Chloride [K-Dur 20 mEq 10 meq PO MWF 11/22/17 03/01/18 ER Tab] Review of Systems - Physician Review All systems were reviewed & negative as marked: Yes - Review of Systems Constitutional: absent: Fevers Respiratory: Cough (with yellow phlegm). absent: SOB Cardiovascular: absent: Chest Pain Gastrointestinal: absent: Diarrhea, Nausea, Vomiting Genitourinary Female: absent: Dysuria, Frequency, Hematuria Musculoskeletal: absent: Back Pain, Neck Pain Neurological: absent: Headache, Dizziness Physical Exam Vital Signs Reviewed: Yes Vital Signs Temp Pulse Resp BP Pulse Ox 03/01/18 05:42 98.9 F 93 H 21 111/62 100 Temperature: Afebrile Blood Pressure: Normal Pulse: Regular Respiratory Rate: Normal Appearance: Positive for: Well-Appearing, Non-Toxic, Comfortable Pain Distress: None Mental Status: Positive for: Alert and Oriented X 3 - Systems Exam Head: Present: Atraumatic, Normocephalic Pupils: Present: PERRL Extroacular Muscles: Present: EOMI Conjunctiva: Present: Normal Mouth: Present: Moist Mucous Membranes Neck: Present: Normal Range of Motion Respiratory/Chest: Present: Wheezes (faint expiratory wheeze with good air entry ). No: Respiratory Distress, Accessory Muscle Use Cardiovascular: Present: Regular Rate and Rhythm, Normal S1, S2. No: Murmurs Abdomen: No: Tenderness, Distention, Peritoneal Signs Back: Present: Normal Inspection Upper Extremity: Present: Normal Inspection. No: Cyanosis, Edema Lower Extremity: Present: Normal Inspection. No: Edema Neurological: Present: GCS=15, CN II-XII Intact, Speech Normal Skin: Present: Warm, Dry, Normal Color. No: Rashes Psychiatric: Present: Alert, Oriented x 3, Normal Insight, Normal Concentration Medical Decision Making ED Course and Treatment: 03/01/18 05:53 Impression: 58 year old female presents complaining of cough with yellow phlegm that began yesterday. Plan: -- Labs -- EKG -- Chest X-ray -- Duoneb, IV Fluids, Solu-medrol -- Blood Culture -- Reassess and disposition Prior Visits: Notes and results from previous visits were reviewed. Progress Notes: - Lab Interpretations Lab Results: 03/01/18 06:05 03/01/18 06:05 Lab Results 03/01/18 06:05: Sodium 143, Potassium 4.9, Chloride 101, Carbon Dioxide 35 H, Anion Gap 12, BUN 21, Creatinine 0.7, Est GFR ( Amer) > 60, Est GFR (Non- Af Amer) > 60, Random Glucose 186 H, Calcium 10.1, Magnesium 1.9, Total Bilirubin 0.4, AST 58 H, ALT 32, Alkaline Phosphatase 55, Lactate Dehydrogenase 338, Total Creatine Kinase 25 L, Troponin I < 0.01, NT-Pro-B Natriuret Pep 191, Total Protein 7.0, Albumin 3.9, Globulin 3.1, Albumin/Globulin Ratio 1.2 03/01/18 06:05: WBC 7.0 D, RBC 4.42, Hgb 12.7, Hct 41.6, MCV 94.1, MCH 28.7, MCHC 30.5 L, RDW 15.2 H, Plt Count 228, MPV 11.8 H, Gran % 74.6 H, Lymph % (Auto ) 15.0 L, [place] % (Auto) 5.6, Eos % (Auto) 4.4, Baso % (Auto) 0.4, Gran # 5.21, Lymph # (Auto) 1.1 L, [place] # (Auto) 0.4, Eos # (Auto) 0.3, Baso # (Auto) 0.03 I have reviewed the lab results: Yes - RAD Interpretation Radiology Orders: 03/01/18 06:01 CHEST PORTABLE [RAD] Stat - EKG Interpretation Interpreted by ED Physician: Yes Type: 12 lead EKG - Medication Orders Current Medication Orders: Magnesium 2 gm/50 ml NS (Magnesium Sulfate 2 Gm/50 Ml Ns) 2 gm in 50 mls @ 50 mls/hr IVPB ONCE ONE Stop: 03/01/18 07:14 Last Admin: 03/01/18 06:23 Dose: 50 mls/hr eMAR Start Stop Document 03/01/18 06:23 AD (Rec: 03/01/18 06:23 [id number] Intravenous Solution Start Date 03/01/18 Start Time 06:23 Discontinued Medications Albuterol/Ipratropium (Duoneb 3 Mg/0.5 Mg (3 Ml) Ud) 3 ml IH STAT STA Stop: 03/01/18 06:01 Last Admin: 03/01/18 06:14 Dose: 3 ml Methylprednisolone (Solu-Medrol) 125 mg IVP STAT STA Stop: 03/01/18 06:01 Last Admin: 03/01/18 06:14 Dose: 125 mg IVP Administration Document 03/01/18 06:14 AD (Rec: 03/01/18 06:14 AD [id number][facility] Charges for Administration # of IVP Administrations 1 - Transfer of Care Patient signed out to Dr:: Mike Pending Radiology Studies:: CT - Scribe Statement The provider has reviewed the documentation as recorded by the Earlibe Zabrina Arteaga Provider Scribe Attestation: All medical record entries made by the Scribe were at my direction and personally dictated by me. I have reviewed the chart and agree that the record accurately reflects my personal performance of the history, physical exam, medical decision making, and the department course for this patient. I have also personally directed, reviewed, and agree with the discharge instructions and disposition. Disposition/Present on Arrival - Present on Arrival Any Indicators Present on Arrival: No History of DVT/PE: No History of Uncontrolled Diabetes: Yes Urinary Catheter: No History of Decub. Ulcer: No History Surgical Site Infection Following: None - Disposition Have Diagnosis and Disposition been Completed?: Yes Diagnosis: COPD exacerbation Disposition: HOME/ ROUTINE Disposition Time: 07:00 Condition: STABLE Forms: [employer] ([place])
[2018-03-01] MEDS ORDERED: Albuterol-Ipratrop 3 mg / 0.5 (3 ml) UD IH STA (06:00)
[2018-03-01] MEDS ORDERED: Magnesium Sulfate 2 GM in Sodium Chloride 0.9% 100 ML IVPB ONE (06:00)
[2018-03-01] MEDS ORDERED: Magnesium 2 gm/50 ml NS 2 GM/50 ML BAG IVPB ONE (06:15)
[2018-03-01 06:24] LABS: HEMOGLOBIN 12.7 g/dL (12.0-16.0); MEAN CELL VOLUME 94.1 fl (80.0-105.0); MEAN CORPUSCULAR HEMOGLOBIN 28.7 pg (25.0-35.0); MEAN CORPUSCULAR HGB CONC 30.5 g/dl (31.0-37.0); RBC 4.42 10^6/uL (3.5-6.1); RED CELL DISTRIBUTION WIDTH 15.2 % (11.5-14.5)
[2018-03-01 06:25] LABS: BASO # 0.03 K/mm3 (0.0-2.0); BASO % 0.4 % (0.0-3.0); EOS # 0.3 (0.0-0.7); EOS % 4.4 % (1.5-5.0); GRAN # 5.21 (1.4-6.5); GRAN % 74.6 % (50.0-68.0); LYMPH # 1.1 (1.2-3.4); MEAN PLATELET VOLUME 11.8 fl (7.0-11.0); MONO # 0.4 (0.1-0.6); MONO % 5.6 % (1.0-6.0)
[2018-03-01 06:36] LABS: ALB/GLOB RATIO 1.2 (1.1-1.8); ALBUMIN 3.9 g/dL (3.0-4.8); ALT/SGPT 32 U/L (7-56); AST/SGOT 58 U/L (14-36); BLOOD UREA NITROGEN 21 mg/dL (7-21); CALCIUM 10.1 mg/dL (8.4-10.5); GFR AFRICAN-AMERICAN > 60; GFR NON-AFRICAN AMERICAN > 60
[2018-03-01 06:42] LABS: B-TYPE NATRIURETIC PEPTIDE 191 pg/mL (0-450)
[2018-03-01 06:46] LABS: TROPONIN I < 0.01 ng/mL
--- NOTE | 2018-03-01 07:34 | ED PDOC ---
Physical Exam Vital Signs Temp Pulse Resp BP Pulse Ox 03/01/18 07:28 84 18 111/60 100 03/01/18 05:42 98.9 F 93 H 21 111/62 100 03/01/18 05:36 88 18 111/60 100 Medical Decision Making ED Course and Treatment: 03/01/18 07:00 Case endorsed to me by Dr. Padilla. Patient is a 58 year old female, whose past medical history includes hypertension, COPD, mytonic dysthrophy type 1, diabetes, hypothyroidism, rectal cancer s/p resection and chemotheraphy, who presented to the emergency department complaining of cough with yellow phlegm that began one day ago, with no significant improvement from her nebulizer treatments at home. Case discussed with Dr. Contreras who agrees to admit the patient. Would like Dr. Leyva for consult. Dr. Contreras and Dr. Leyva saw patient in the ED. - Lab Interpretations Lab Results: 03/01/18 06:05 03/01/18 06:05 Lab Results 03/01/18 06:05: Sodium 143, Potassium 4.9, Chloride 101, Carbon Dioxide 35 H, Anion Gap 12, BUN 21, Creatinine 0.7, Est GFR ( Amer) > 60, Est GFR (Non- Af Amer) > 60, Random Glucose 186 H, Calcium 10.1, Magnesium 1.9, Total Bilirubin 0.4, AST 58 H, ALT 32, Alkaline Phosphatase 55, Lactate Dehydrogenase 338, Total Creatine Kinase 25 L, Troponin I < 0.01, NT-Pro-B Natriuret Pep 191, Total Protein 7.0, Albumin 3.9, Globulin 3.1, Albumin/Globulin Ratio 1.2 03/01/18 06:05: WBC 7.0 D, RBC 4.42, Hgb 12.7, Hct 41.6, MCV 94.1, MCH 28.7, MCHC 30.5 L, RDW 15.2 H, Plt Count 228, MPV 11.8 H, Gran % 74.6 H, Lymph % (Auto ) 15.0 L, [place] % (Auto) 5.6, Eos % (Auto) 4.4, Baso % (Auto) 0.4, Gran # 5.21, Lymph # (Auto) 1.1 L, [place] # (Auto) 0.4, Eos # (Auto) 0.3, Baso # (Auto) 0.03 - RAD Interpretation Narrative RAD Interpretations (Text): Date of service: 03/01/2018 HISTORY: r/o infiltrate COMPARISON: 11/22/2017 FINDINGS: LUNGS: There is severe elevation of the right hemidiaphragm. There is atelectasis at the left lung base. PLEURA: No significant pleural effusion identified, no pneumothorax apparent. CARDIOVASCULAR: Normal. OSSEOUS STRUCTURES: No significant abnormalities. VISUALIZED UPPER ABDOMEN: Normal. OTHER FINDINGS: None. IMPRESSION: There is severe elevation of the right hemidiaphragm. There is atelectasis at the left lung base. Radiology Orders: 03/01/18 06:01 CHEST PORTABLE [RAD] Stat - Medication Orders Current Medication Orders: Discontinued Medications Albuterol/Ipratropium (Duoneb 3 Mg/0.5 Mg (3 Ml) Ud) 3 ml IH STAT STA Stop: 03/01/18 06:01 Last Admin: 03/01/18 06:14 Dose: 3 ml Magnesium 2 gm/50 ml NS (Magnesium Sulfate 2 Gm/50 Ml Ns) 2 gm in 50 mls @ 50 mls/hr IVPB ONCE ONE Stop: 03/01/18 07:14 Last Admin: 03/01/18 06:23 Dose: 50 mls/hr eMAR Start Stop Document 03/01/18 06:23 AD (Rec: 03/01/18 06:23 AD [facility] [id number]) Intravenous Solution Start Date 03/01/18 Start Time 06:23 Methylprednisolone (Solu-Medrol) 125 mg IVP STAT STA Stop: 03/01/18 06:01 Last Admin: 03/01/18 06:14 Dose: 125 mg IVP Administration Document 03/01/18 06:14 AD (Rec: 03/01/18 06:14 AD [id number]) Charges for Administration # of IVP Administrations 1 - Scribe Statement The provider has reviewed the documentation as recorded by the Kurtis Gomes Provider Scribe Attestation: All medical record entries made by the Scribe were at my direction and personally dictated by me. I have reviewed the chart and agree that the record accurately reflects my personal performance of the history, physical exam, medical decision making, and the department course for this patient. I have also personally directed, reviewed, and agree with the discharge instructions and disposition. Disposition/Present on Arrival - Present on Arrival Any Indicators Present on Arrival: Yes History of DVT/PE: No History of Uncontrolled Diabetes: Yes Urinary Catheter: No History of Decub. Ulcer: No History Surgical Site Infection Following: None - Disposition Have Diagnosis and Disposition been Completed?: Yes Diagnosis: COPD exacerbation Disposition: HOSPITALIZED Disposition Time: 07:56 Patient Plan: Admission Patient Problems: Current Active Problems Problem Status Onset COPD exacerbation Acute Condition: STABLE
[2018-03-01] MEDS ORDERED: Promethazine DM 6.25 mg-15 mg/5 ml Syrup PO PRN (08:38)
[2018-03-01] MEDS ORDERED: Albuterol-Ipratrop 3 mg / 0.5 (3 ml) UD IH PRN (08:41)
[2018-03-01] MEDS ORDERED: Albuterol-Ipratrop 3 mg / 0.5 (3 ml) UD IH SCH (08:45)
--- NOTE | 2018-03-01 09:10 | RAD ---
Date of service: 03/01/2018 HISTORY: r/o infiltrate COMPARISON: 11/22/2017 FINDINGS: LUNGS: There is severe elevation of the right hemidiaphragm. There is atelectasis at the left lung base. PLEURA: No significant pleural effusion identified, no pneumothorax apparent. CARDIOVASCULAR: Normal. OSSEOUS STRUCTURES: No significant abnormalities. VISUALIZED UPPER ABDOMEN: Normal. OTHER FINDINGS: None. IMPRESSION: There is severe elevation of the right hemidiaphragm. There is atelectasis at the left lung base.
[2018-03-01] MEDS ORDERED: Potassium Chloride 10 mEq ER Tab PO SCH (10:00)
[2018-03-01] MEDS: levoFLOXacin 500 mg in D5W 500 MG/100 ML BAG IVPB SCH (10:51)
[2018-03-01] MEDS: MethylPREDNISolone 40 mg Vial IVP SCH ×2 (10:51→19:05)
--- NOTE | 2018-03-01 11:06 | CON ---
DATE: 03/01/2018 PULMONARY CONSULTATION REFERRING PHYSICIAN: Tom Contreras DO. REASON FOR CONSULTATION: Shortness of breath. HISTORY OF PRESENT ILLNESS: The patient is a chronically ill 58-year-old female, with past medical history significant for chronic obstructive pulmonary disease, advanced myotonic dystrophy, chronic respiratory insufficiency, respiratory failure in the past, diabetes, hypothyroidism, rectal cancer, status post resection and chemotherapy, who presents to [facility] with a 2-day history of increasing shortness of breath at rest, dyspnea on exertion, cough and sputum production. There is no history of chest pain, coughing up of blood or chest pain - made worse with deep respirations. There is no history of temperatures, chills or infectious exposure. There is no history of night sweats, weight loss or appetite change prior to the above events. No history of calf pains. No history of syncope or diaphoresis. No history of recent travel or trauma. REVIEW OF SYSTEMS: No history of nausea, vomiting or diarrhea. No acute urinary symptoms. No new neurologic or musculoskeletal complaints. Rest of the review of systems is negative. ALLERGIES: TO PENICILLIN. SOCIAL HISTORY: Positive for tobacco. Negative for alcohol. FAMILY HISTORY: No inheritable diseases. HOME MEDICATIONS: Include Synthroid, Levemir, NovoLog, Lasix, Tricor and albuterol. PHYSICAL EXAMINATION: GENERAL: The patient is not short of breath at rest. She is not using accessory muscles for breathing. VITAL SIGNS: Temperature is 98.6, pulse 84, respirations 18, blood pressure 111/60. Oxygen saturation on nasal cannula is 100%. HEENT: Normocephalic, atraumatic. No JVD. CARDIOVASCULAR: Positive S1, S2. No S3 gallop. LUNGS: Decreased breath sounds at the bases with crackles. Mild bilateral rhonchi. A few wheezes are also appreciated. EXTREMITIES: Mild edema. No cyanosis. No clubbing. Calves are nontender to palpation. GI: Abdomen is soft, nontender and nondistended. Bowel sounds are positive. SKIN: No acute rash. NEUROLOGIC: Limited at the present time. PERTINENT LABORATORY DATA: Chest x-ray was done in the emergency room. It is a poor, semi-erect portable film. There is chronic elevation of the right hemidiaphragm. However, on the most recent x-ray, there is also a left basal infiltrate(vs. atelectasis). CBC: White count 7.0K, hemoglobin 12.7 , hematocrit 41.6, platelets of 228,000. Complete metabolic profile: Carbon dioxide 35, glucose 186, AST 58. Rest of the metabolic profile is within normal limits. IMPRESSION: 1. Acute bronchitis. 2. Chronic obstructive pulmonary disease. 3. Left basal atelectasis vs. pneumonia. 4. Advanced myotonic dystrophy. 5. Chronic respiratory insufficiency. PLAN: The patient presents to [facility] with a 2-day history of worsening pulmonary symptoms. I do know this patient for a long time. She has a history of significant noncompliance with her medications. She is also supposed to be on nightly BiPAP (for her chronic respiratory insufficiency), which she out right, refuses to wear. I did discuss this issue with her at length this morning. I will try convincing her to wear the BiPAP at night during this admission. I did review the chest x-ray as above. There is chronic right hemidiaphragm elevation noted. However, there appears to be a left basal infiltrate(vs. atelectasis) also noted. Official results are pending. The patient has been cultured and started on antibiotic therapy. There are no temperatures noted. There is also no leukocytosis. On physical exam, the patient is in [id number] bronchospasm. The patient has been started on nebulizer treatments and moderate-dose intravenous steroids. Repeat a.m. labs are also ordered. The patient does appear clinically improved - compared to the past few days. She does state to feeling better this morning. Her overall status/prognosis remains poor. I did discuss the above with Dr. Contreras at length. Thank you very much for this pulmonary consultation. Adam Leyva MD MTDAminata
[2018-03-01] MEDS: Insulin Reg-HIGH-Coverage SC SCH ×3 (11:45→22:07)
[2018-03-01] MEDS: Albuterol-Ipratrop 3 mg / 0.5 (3 ml) UD IH SCH ×2 (14:04→21:00)
--- NOTE | 2018-03-01 15:52 | HP ---
HISTORY OF PRESENT ILLNESS: I had calls from Cyndi the past couple days for shortness of breath. She finally agreed to come to the hospital. She is a 58-year-old female who I know well from house calls. She has myotonic dystrophy, very difficult for her move her body, walk. PAST MEDICAL HISTORY: She has a past medical history of hypertension, COPD, diabetes, hypothyroidism, rectal cancer, status post resection and chemotherapy. She is coughing yellow phlegm for few days, feeling sick, getting weaker, some sweats, fever there. She wears eye glasses. She had bilateral cataract surgery with removal of a macular pucker in the right eye and jaw surgery, hypothyroidism, cancer, dry skin, multiple surgical scars to the abdomen. Multiple falls. She had rectal cancer with chemo and surgery. She had a PEG tube in, PEG tube out. She had colostomy with reversal. Diverticulitis history, fatty liver, UTIs, multiple bronchitis, cholecystectomy, and hysterectomy. FAMILY HISTORY: There is myotonic dystrophy in the family with hypertension and diabetes. SOCIAL HISTORY: She never smoked. No alcohol. No drugs. ALLERGIES: SHE HAS ALLERGIES TO PENICILLIN. MEDICATIONS: She takes albuterol, Tricor, Lasix, and potassium. REVIEW OF SYSTEMS: She had some fevers, none now. She is coughing yellow phlegm. She is weak. No chest pain or palpitations. No diarrhea, nausea, vomiting. No problems urinating. No back pain or neck pain, just very weak. No headache or dizziness. PHYSICAL EXAMINATION: VITAL SIGNS: She has 98.9 temperature, 93 pulse, 21 respiratory rate, 111/62 blood pressure, 100% O2 sat on oxygen. GENERAL: She is short of breath and coughing at this time. She is better with oxygen. She was short of breath. Alert and oriented x3. Not anxious. HEENT: Head is atraumatic, normocephalic. Extraocular muscles are intact. Pupils equal and reactive to light. Throat is dry. NECK: Supple. No palpable lymphadenopathy appreciated. Thyroid midline. LUNGS: There are wheezes bilateral, decreased breath sounds. Has cough, congestion, and some rhonchi, changes with cough. HEART: Regular rate. Normal S1, S2. ABDOMEN: Soft, nontender. Positive bowel sounds. No guarding, no rebound, or CVA tenderness. EXTREMITIES: No edema, very weak, mildly contracted. Cannot walk well without walker and assist. NEUROLOGIC: GCS is 15. Cranial nerves II-XII grossly intact. Speech is normal, but she is still lethargic and tired. SKIN: From what I could tell, is intact. No rashes or ulcers appreciated. LABORATORY DATA: She has 7 white count, 12.7 hemoglobin, 41.6 hematocrit with 228 platelets. Sodium 143, potassium 4.9, chloride 101, carbon dioxide 35, anion gap is 32, BUN 21, creatinine 0.7, GFR is greater than 60. Sugar is 186, calcium is 10.1, magnesium 1.9. Total bilirubin is 0.4, AST is 58, ALT is 32, alk phos 55, lactate dehydrogenase 338, total creatine kinase is 25. Troponin I is less than 0.01. BNP is 491. Total protein 7, albumin is 3.9, globulin 3.1. ASSESSMENT AND PLAN: She is here for chronic obstructive pulmonary disease exacerbation on top of chronic bronchitis. She will have a Pulmonary consult. She will be on IV Solu-Medrol. She will be on Levaquin IV. She will have her medications. She will be on albuterol around the clock. She will have oxygen and cough medicine, also physical therapy. Get Pulmonary consult also. She is with acute chronic obstructive pulmonary disease. Tom Contreras DO
[2018-03-01 17:00] VITALS: BMI 24.7
[2018-03-01] MEDS ORDERED: Pneumococcal 23-Valent Vaccine IM ONE (17:00)
--- NOTE | 2018-03-01 17:35 | CARD ---
APPROVED REPORT Date of service: 03/01/2018 EKG Measurement Heart [id number] <Conclusion> Sinus rhythm with sinus arrhythmia with 1st degree AV block Right axis deviation Low voltage QRS Incomplete right bundle branch block Cannot rule out Anteroseptal infarct, age undetermined Abnormal ECG
[2018-03-01] MEDS: Insulin Lispro 1 UNITS/0.01 ML SC SCH (19:04)
[2018-03-01] MEDS: Insulin Detemir 100 units/ml Vial (Levemir) SC SCH (22:15)
[2018-03-02] MEDS: MethylPREDNISolone 40 mg Vial IVP SCH ×4 (00:44→23:45)
[2018-03-02] MEDS: Albuterol-Ipratrop 3 mg / 0.5 (3 ml) UD IH SCH ×4 (01:39→21:45)
--- NOTE | 2018-03-02 07:08 | PN ---
DATE: 03/02/2018 PULMONARY NOTE SUBJECTIVE: The patient appears comfortable this morning. She is not short of breath at rest. PHYSICAL EXAMINATION: VITAL SIGNS: (Last noted in the computer): Temperature is 98.6, pulse 73, respirations 18/20, blood pressure 92/59. Oxygen saturation on nasal cannula is 94-100%. HEENT: Normocephalic, atraumatic. No JVD. CARDIOVASCULAR: Positive S1, S2. No S3 gallop. LUNGS: Decreased breath sounds at the bases with crackles. Mild bilateral rhonchi. No wheezing this morning. EXTREMITIES: Mild edema. No cyanosis. No clubbing. Calves are nontender to palpation. GI: Abdomen is soft, nontender and nondistended. Bowel sounds are positive. SKIN: No acute rash. NEUROLOGIC: Limited at the present time. IMPRESSION: 1. Acute bronchitis. 2. Chronic obstructive pulmonary disease. 3. Left basal atelectasis versus pneumonia. 4. Advanced myotonic dystrophy. 5. Chronic respiratory insufficiency. PLAN: The patient appears comfortable this morning. She is not short of breath at rest. She does state to feeling a little better overall. I did discuss the case with the night nurse at length. The night nurse stated that the patient had a pretty good night, but refused her BiPAP. I did have a long talk again with the patient regarding this issue. I did inform her that wearing the BiPAP at night may limit her overall respiratory insufficiency/decompensation. However, she continues to refuse the BiPAP. On physical exam, the patient remains in bronchospasm. I will continue with the current nebulizer treatments and intravenous steroids. I will also add Mucomyst. The patient is already on chest percussion therapy. The patient remains on antibiotic therapy. There are no temperatures noted. Repeat a.m. labs are pending. Clinical status of the patient is somewhat improved - compared to yesterday. However, the future status/prognosis for this patient remains poor, as her overall status/health continues to slowly decline. I will discuss the above with Dr. Contreras. Adam Leyva MD [facility] # [id number] ISAURA
[2018-03-02] MEDS: Acetylcysteine 20% Inhal Soln (4ml) IH SCH ×3 (07:23→21:46)
[2018-03-02 07:27] LABS: HEMOGLOBIN 11.8 g/dL (12.0-16.0); MEAN CELL VOLUME 94.5 fl (80.0-105.0); MEAN CORPUSCULAR HEMOGLOBIN 28.4 pg (25.0-35.0); MEAN CORPUSCULAR HGB CONC 30.1 g/dl (31.0-37.0); MEAN PLATELET VOLUME 12.7 fl (7.0-11.0); RBC 4.15 10^6/uL (3.5-6.1); RED CELL DISTRIBUTION WIDTH 15.4 % (11.5-14.5); WHITE BLOOD COUNT 9.5 10^3/ul (4.5-11.0)
[2018-03-02 07:43] LABS: ALB/GLOB RATIO 1.2 (1.1-1.8); ALBUMIN 3.5 g/dL (3.0-4.8); ALT/SGPT 24 U/L (7-56); AST/SGOT 40 U/L (14-36); BLOOD UREA NITROGEN 27 mg/dL (7-21); CALCIUM 9.8 mg/dL (8.4-10.5); GFR AFRICAN-AMERICAN > 60; GFR NON-AFRICAN AMERICAN > 60
[2018-03-02] MEDS: Insulin Reg-HIGH-Coverage SC SCH ×4 (08:00→21:27)
[2018-03-02] MEDS: Levothyroxine 75 MCG TAB PO SCH (08:00)
[2018-03-02] MEDS: levoFLOXacin 500 mg in D5W 500 MG/100 ML BAG IVPB SCH (09:53)
[2018-03-02] MEDS: Insulin Lispro 1 UNITS/0.01 ML SC SCH ×2 (09:53→19:56)
[2018-03-02] MEDS: Enoxaparin 40 mg Syringe SC SCH (09:54)
--- NOTE | 2018-03-02 17:34 | PN ---
DATE: 03/02/2018 SUBJECTIVE: I saw her sitting out of bed to chair. She is quite short of breath on oxygen. She is trying to eat and it is hard for her to breathe and eat at the same time. She is asking for a stool softener. She feels very constipated. She is on acetylcysteine, Colace, DuoNeb [id number], insulin, potassium replacement, Lasix IV, levofloxacin IV, Levemir, Lovenox, magnesium replacement, promethazine for cough, Solu-Medrol 40 IV every 8, levothyroxine, TriCor. PHYSICAL EXAMINATION: VITAL SIGNS: She has a 97.4 temperature, 80 pulse, 97/57 blood pressure, 16 respiratory rate, 95% O2 sat on 2 liters. HEENT: Head is atraumatic and normocephalic. HEART: Regular rate. LUNGS: Decreased breath sounds. Mild congestion and wheeze. Very poor inspiration. She is very weak, could be from myotonic dystrophy that she has. ABDOMEN: Soft. EXTREMITIES: No edema, but quite weak. LABORATORY DATA: She has a 9.5 white count, 11.8 hemoglobin, 39.2 hematocrit with 236 platelets. Sodium 139, potassium 5.2, BUN 27, creatinine 0.9. GFR is greater than 60, although blood sugars are quite high at 358, then 329. It is down to 298. I will change her diabetes medications. Total bilirubin is 0.2, AST is 40, ALT is 24, alkaline phosphatase 56, total protein 6.4. ASSESSMENT AND PLAN: I am going to order urinalysis, culture and sensitivity, give her some Colace. I am happy that she is out of bed to chair. She has promethazine already. We are following up with her metal machine operator who has her on a very tight pulmonary toilet and IV Solu-Medrol. She has acute bronchitis, chronic obstructive pulmonary disease, left basal atelectasis versus pneumonia, advanced myotonic dystrophy, chronic respiratory insufficiency. Tom Contreras DO
[2018-03-02 21:30] LABS: URINE BILIRUBIN NEGATIVE (NEGATIVE); URINE BLOOD TRACE-LYSED (NEGATIVE); URINE GLUCOSE (UA) >=1000 mg/dL (NEGATIVE); URINE LEUKOCYTE ESTERASE MODERATE Leu/uL (NEGATIVE); URINE PROTEIN NEGATIVE mg/dL (<30 mg/dL); URINE UROBILINOGEN 0.2 E.U./dL (<1 E.U./dL)
[2018-03-02 21:31] LABS: URINE APPEARANCE SL CLOUDY (CLEAR); URINE COLOR YELLOW (YELLOW)
[2018-03-02 21:47] LABS: URINE WBC 15 - 20 /hpf (0-6)
[2018-03-02 21:48] LABS: URINE BACTERIA TRACE (NEG)
[2018-03-02] MEDS: Insulin Detemir 100 units/ml Vial (Levemir) SC SCH (22:15)
[2018-03-03] MEDS: Acetylcysteine 20% Inhal Soln (4ml) IH SCH ×4 (01:53→20:21)
[2018-03-03] MEDS: Albuterol-Ipratrop 3 mg / 0.5 (3 ml) UD IH SCH ×4 (01:54→20:21)
[2018-03-03 07:08] LABS: HEMOGLOBIN 11.3 g/dL (12.0-16.0); MEAN CELL VOLUME 94.3 fl (80.0-105.0); MEAN CORPUSCULAR HGB CONC 29.7 g/dl (31.0-37.0); MEAN PLATELET VOLUME 12.1 fl (7.0-11.0); RBC 4.03 10^6/uL (3.5-6.1); RED CELL DISTRIBUTION WIDTH 15.4 % (11.5-14.5); WHITE BLOOD COUNT 8.4 10^3/ul (4.5-11.0)
[2018-03-03 07:24] LABS: ALB/GLOB RATIO 1.2 (1.1-1.8); ALBUMIN 3.4 g/dL (3.0-4.8); ALT/SGPT 33 U/L (7-56); AST/SGOT 39 U/L (14-36); BLOOD UREA NITROGEN 34 mg/dL (7-21); CALCIUM 9.6 mg/dL (8.4-10.5); GFR AFRICAN-AMERICAN > 60; GFR NON-AFRICAN AMERICAN 51
[2018-03-03] MEDS: Insulin Reg-HIGH-Coverage SC SCH ×3 (08:07→17:19)
--- NOTE | 2018-03-03 08:28 | PN ---
DATE: 03/03/2018 PULMONARY NOTE SUBJECTIVE: The patient appears comfortable this morning. She is not short of breath at rest. PHYSICAL EXAMINATION: VITAL SIGNS: (Last noted in the computer): Temperature is 97.7, pulse 72, respirations 18/20, blood pressure 95/60. Oxygen saturation on nasal cannula 95%-96%. HEENT: Normocephalic, atraumatic. No JVD. CARDIOVASCULAR: Positive S1, S2. No S3 gallop. LUNGS: Decreased breath sounds at the bases with crackles. Much less rhonchi. No wheezing. EXTREMITIES: Mild edema. No cyanosis, no clubbing. Calves are nontender to palpation. GI: Abdomen is soft, nontender and nondistended. Bowel sounds are positive. SKIN: No acute rash. NEUROLOGIC: Limited at the present time. IMPRESSION: 1. Acute bronchitis. 2. Chronic obstructive pulmonary disease. 3. Left basal atelectasis versus pneumonia. 4. Advanced myotonic dystrophy. 5. Chronic respiratory insufficiency. Plan: The patient appears comfortable this morning. She is not short of breath at rest. She does state to feeling much better overall. I did discuss the case with the night nurse at length. The night nurse informed me that the patient continues to refuse her BiPAP. The night nurse also informed me that the patient is refusing blood work. I did discuss these issues with the patient this morning. She just looked at me and shrugged her shoulders. On physical exam, the bronchospasm is definitely less. I will continue the current nebulizer treatments and decrease the intravenous steroids this morning. The patient is also getting chest percussion therapy and suctioning. I did discuss these orders with Respiratory yesterday. The patient remains on antibiotic therapy. There are no temperatures noted. There is no leukocytosis. The clinical status of the patient is certainly improved - compared to the initial presentation. However, again, the future status/prognosis for this patient remains poor. I will discuss the above with Dr. Contreras. Adam Leyva MD [facility]
[2018-03-03] MEDS: levoFLOXacin 500 mg in D5W 500 MG/100 ML BAG IVPB SCH (09:20)
[2018-03-03] MEDS: Enoxaparin 40 mg Syringe SC SCH (09:20)
[2018-03-03] MEDS: Levothyroxine 75 MCG TAB PO SCH (09:22)
[2018-03-03] MEDS: MethylPREDNISolone 40 mg Vial IVP SCH ×2 (09:22→21:37)
[2018-03-03] MEDS: Insulin Lispro 1 UNITS/0.01 ML SC SCH ×2 (09:23→17:23)
[2018-03-03] MEDS ORDERED: Sod Polystyrene Sulf 15 gm/60 ml Susp PO ONE (10:04)
--- NOTE | 2018-03-03 10:25 | PN ---
DATE: 03/03/2018 SUBJECTIVE: I saw Cyndi resting comfortably in bed. She is unable to do better, but she is refusing labs. MEDICATIONS: She is on acetylcysteine, Colace, DuoNebs, insulin, Januvia, potassium, Lasix, Levaquin, Levemir, Lovenox, Phenergan, Solu-Medrol, Synthroid and Tricor. PHYSICAL EXAMINATION: VITAL SIGNS: She has a 97.7 temp, 72 pulse, 90/60 blood pressure, 20 respiratory rate, 95% O2 sat on 2 L. HEENT: Her head is atraumatic, normocephalic. Throat is moist. NECK: Supple. HEART: Regular rate. LUNGS: Decreased breath sounds, but better than yesterday. Moving more air. ABDOMEN: Soft, nontender. Positive bowel sounds. EXTREMITIES: No edema, but she is weak secondary to myotonic dystrophy. LABORATORY DATA: She has an 8.4 white count, 11.3 hemoglobin, hematocrit with a 226 platelets. 139 sodium, potassium 5.4. I will give her some Kayexalate. BUN is 34, creatinine 1.1, GFR is 51, sugar is 260. She is on Solu-Medrol. Calcium is 9.6. Total bili is 0.3. AST is 39, ALT is 33, alk phos 49, total protein 6.3. Urine with moderate bacteriuria. ASSESSMENT AND PLAN: She is being seen by Pulmonary. We decreased the Solu-Medrol. She has chronic obstructive pulmonary disease, myotonic dystrophy, hypertension, diabetes, hypothyroid, acute bronchitis, possible pneumonia and urine had moderate leukocytes. We will continue to try and get her improved, get her out of bed to chair. Some physical therapy. Checking her labs. We will decrease the Solu-Medrol. Tom Contreras DO MTDD
[2018-03-03 13:51] VITALS: RESP 16
[2018-03-03] MEDS: Insulin Detemir 100 units/ml Vial (Levemir) SC SCH (21:37)
[2018-03-03 22:24] VITALS: O2SAT 95
[2018-03-04] MEDS: Insulin Reg-HIGH-Coverage SC SCH ×4 (00:34→17:13)
[2018-03-04] MEDS: Acetylcysteine 20% Inhal Soln (4ml) IH SCH ×3 (02:30→13:53)
[2018-03-04] MEDS: Albuterol-Ipratrop 3 mg / 0.5 (3 ml) UD IH SCH ×3 (02:30→13:53)
[2018-03-04 06:46] LABS: HEMOGLOBIN 11.3 g/dL (12.0-16.0); MEAN CELL VOLUME 95.7 fl (80.0-105.0); MEAN CORPUSCULAR HEMOGLOBIN 28.6 pg (25.0-35.0); MEAN CORPUSCULAR HGB CONC 29.9 g/dl (31.0-37.0); MEAN PLATELET VOLUME 12.4 fl (7.0-11.0); RBC 3.95 10^6/uL (3.5-6.1); RED CELL DISTRIBUTION WIDTH 15.5 % (11.5-14.5); WHITE BLOOD COUNT 7.3 10^3/ul (4.5-11.0)
[2018-03-04 07:05] LABS: ALB/GLOB RATIO 1.2 (1.1-1.8); ALBUMIN 3.3 g/dL (3.0-4.8); ALT/SGPT 30 U/L (7-56); AST/SGOT 45 U/L (14-36); BLOOD UREA NITROGEN 39 mg/dL (7-21); CALCIUM 9.4 mg/dL (8.4-10.5); GFR AFRICAN-AMERICAN > 60; GFR NON-AFRICAN AMERICAN 57
--- NOTE | 2018-03-04 07:27 | PN ---
DATE: 03/04/2018 PULMONARY NOTE DICTATION SUBJECTIVE: The patient appears comfortable this morning. She is not short of breath at rest. PHYSICAL EXAMINATION: VITAL SIGNS: Temperature is 98.1, pulse 91, respirations 16, blood pressure 96/58. Oxygen saturation on nasal cannula is 95-100%. HEENT: Normocephalic, atraumatic. No JVD. CARDIOVASCULAR: Positive S1, S2. No S3 gallop. LUNGS: Decreased breath sounds at the bases with crackles. Much less, minimal rhonchi. No wheezing. EXTREMITIES: Mild edema. No cyanosis, no clubbing. Calves are nontender to palpation. GI: Abdomen is soft, nontender, nondistended. Bowel sounds are positive. SKIN: No acute rash. NEUROLOGIC: Limited at the present time. IMPRESSION: 1. Acute bronchitis. 2. Chronic obstructive pulmonary disease. 3. Left basilar atelectasis versus pneumonia. 4. Advanced myotonic dystrophy. 5. Chronic respiratory insufficiency. PLAN: The patient appears comfortable this morning. She is not short of breath at rest. She does state to feeling much better overall. I did discuss the case with the night nurse at length. The night nurse stated that the patient had a good night overall. However, the night nurse did inform me that the patient continues to refuse her BiPap, as well as continues to now refuse suctioning (by respiratory). I did go over the reasons why we order BiPap and suctioning with the patient again at length. She just looked at me, shrugged her shoulders, and outright refuses these interventions. On physical exam, her bronchospasm continues to resolve. In addition, the alveolar-arterial gradient also continues to resolve. I will continue the current nebulizer treatments and decrease the intravenous steroids this morning. The patient remains on antibiotic therapy. There are no temperatures noted. There is no leukocytosis. Clinical status of the patient is definitely improved - compared to the initial presentation. However, again, the future status/prognosis for this patient remains poor. All are aware. I will discuss the above with Dr. Contreras. Adam Leyva MD [facility] # [id number] MTDD
[2018-03-04] MEDS: Levothyroxine 75 MCG TAB PO SCH (08:16)
[2018-03-04] MEDS ORDERED: MethylPREDNISolone 40 mg Vial IVP SCH (10:00)
--- NOTE | 2018-03-04 11:06 | CP.PCM.CON ---
History of Present Illness - History of Present Illness History of Present Illness: PGY-[address] Begum's service 58 yo female with PMH of HTN, COPD, diabetes, h/o rectal cancer s/p resection and chemotherapy and mytonic dysthrophy presented for shortness of breath and productive cough. Patient states that it began a few days ago with productive cough and sore throat. She came to the hospital when she began have sob. Patient states that her cough has mildly improved and she no long er has a sore throat but reports pain in both ears that begain yesterday. Patient states the she produces yello/ green sputum with cough. Patient states that her visiting aid was sick, she reports no other sick contacts. Last hospitalization was last year. No recent travels. She denies chest pain, headache, dizziness, fever, nasal congestion, abd pain, diarrhea, n/v, dysuria, hematuria, ulcers. PMH:HTN, COPD, diabetes, h/o rectal cancer s/p resection and chemotherapy and myytonic dysthrophy psh: rectal ca resection, cholecystectomy, hysterectomy social history: denies smoking, alcohol use, illicit drug use family hsitory: myitonic dystrophy, HTN, diabetes allergy: penicillins Review of Systems - Review of Systems All systems: reviewed and no additional remarkable complaints except - Constitutional Constitutional: Lethargy. absent: Fever, Headache - EENT Ears: Decreased Hearing, Ear Pain Nose/Mouth/Throat: absent: Nasal Congestion, Nasal Discharge, Sore Throat - Cardiovascular Cardiovascular: Dyspnea. absent: Chest Pain, Edema, Irregular Heart Rhythm, Palpitations - Respiratory Respiratory: Cough, Dyspnea. absent: Hemoptysis - Gastrointestinal Gastrointestinal: Constipation. absent: Abdominal Pain, Diarrhea, Nausea, Vomiting - Genitourinary Genitourinary: absent: Change in Urinary Stream, Difficulty Urinating, Dysuria, Hematuria - Integumentary Integumentary: absent: Skin Ulcer, Sores, Swelling - Neurological Neurological: Weakness. absent: Dizziness, Headaches, Syncope - Hematologic/Lymphatic Hematologic: absent: Easy Bleeding, Easy Bruising Past Patient History - Infectious Disease Hx of Infectious Diseases: None - Tetanus Immunizations Tetanus Immunization: Unknown - Past Social History Smoking Status: Never Smoked - CARDIAC Hx Cardiac Disorders: No - PULMONARY Hx Chronic Obstructive Pulmonary Disease (COPD): Yes - NEUROLOGICAL Hx Neurological Disorder: No - HEENT Hx HEENT Problems: Yes (pt stated "I need glasses") Hx Cataracts: Yes (bilateral cataract surgery) Other/Comment: removal of macular pocket of right eye/ jaw sx - RENAL Hx Chronic Kidney Disease: No - ENDOCRINE/METABOLIC Hx Diabetes Mellitus Type 2: Yes Hx Hypothyroidism: Yes - HEMATOLOGICAL/ONCOLOGICAL Hx Blood Disorders: Yes Hx Anemia: Yes (blood transfusion) Hx Cancer: Yes (rectal 2011) Hx Chemotherapy: Yes - INTEGUMENTARY Hx Dermatological Problems: No Hx Basil Cell: No Hx Eczema: No Hx Melanoma: No Hx Psoriasis: No Hx Squamous Cell: No Other/Comment: dry skin to feet, multiple surgical scars to abd, multiple small brown skin discoloratins to ble, slight red blanchable dry skin to buttocks, crooked great toes, multiple healed abd surgical scars - MUSCULOSKELETAL/RHEUMATOLOGICAL Hx Musculoskeletal Disorders: Yes (myotonic dystrophy dx ) Hx Arthritis: Yes (knees) Hx Back Pain: Yes Hx Falls: Yes (last fall 11/25/17) Hx Unsteady Gait: Yes (rollator, raised toilet seat) Other/Comment: muscle weakness, chronic knee pain/sweling from arthritis right more than left x 1 yr - GASTROINTESTINAL Hx Gastrointestinal Disorders: Yes (RECTAL CA WAS ON CHEMO,HAD SX,PEG IN AND OUT ) Hx Colostomy: Yes (with reversal) Hx Diverticulitis: Yes Hx Gall Bladder Disease: Yes Other/Comment: fatty liver, colorectal sx, lower gi bleed, peg tube in and out, gastrosotmy 2011, colonoscopy 04/13/15 diverticulosis, hemorrhoids, polyp - GENITOURINARY/GYNECOLOGICAL Hx Genitourinary Disorders: Yes (UTI) Hx Incontinence: Yes (uses pullups) Hx Urinary Tract Infection: Yes - PSYCHIATRIC Hx Psychophysiologic Disorder: No Hx Substance Use: No - SURGICAL HISTORY Hx Surgeries: Yes (colostomy reversal) Hx Cholecystectomy: Yes Hx Hysterectomy: Yes (2005) Other/Comment: anterior resection and ileostomy 2011, 10/07/2012 bleeding ileostomy. exp lap, dissection portion of small bowel, dissection of ileostomy - ANESTHESIA Hx Anesthesia Reactions: No Hx Malignant Hyperthermia: No Meds Allergies/Adverse Reactions: Allergies Allergy/AdvReac Type Severity Reaction Status Date / Time Penicillins Allergy Severe ANGIOEDEMA Verified 03/01/18 05:41 - Medications Medications: Current Medications Acetylcysteine (Acetylcysteine 20%) 4 ml IH [id number] [facility] Last Admin: 03/04/18 06:59 Dose: 4 ml Albuterol/Ipratropium (Duoneb 3 Mg/0.5 Mg (3 Ml) Ud) 3 ml IH [id number] [facility] Last Admin: 03/04/18 06:59 Dose: 3 ml Albuterol/Ipratropium (Duoneb 3 Mg/0.5 Mg (3 Ml) Ud) 3 ml IH Q2H PRN PRN Reason: Shortness of Breath Docusate Sodium (Colace) 100 mg PO DAILY [facility] Last Admin: 03/03/18 09:21 Dose: 100 mg Enoxaparin Sodium (Lovenox) 40 mg SC DAILY [facility] PRN Reason: Protocol Last Admin: 03/03/18 09:20 Dose: 40 mg Fenofibrate (Tricor) 145 mg PO DAILY [facility] Last Admin: 03/03/18 09:22 Dose: 145 mg Furosemide (Lasix) 20 mg PO DAILY [facility] Last Admin: 03/03/18 09:24 Dose: Not Given Levofloxacin/Dextrose (Levaquin 500mg) 500 mg in 100 mls @ 100 mls/hr IVPB DAILY [facility] PRN Reason: Protocol Last Admin: 03/03/18 09:20 Dose: 100 mls/hr Insulin Detemir (Levemir) 20 unit SC HS [facility] Last Admin: 03/03/18 21:37 Dose: 20 units Insulin Human Lispro (Humalog) 10 units SC BID [facility] Last Admin: 03/03/18 17:23 Dose: 10 units Insulin Human Regular (Humulin R High) 0 units SC ACHS [facility] PRN Reason: Protocol Last Admin: 03/04/18 08:16 Dose: 4 units Levothyroxine Sodium (Synthroid) 75 mcg PO ACB [facility] Last Admin: 03/04/18 08:16 Dose: 75 mcg Methylprednisolone (Solu-Medrol) 30 mg IVP Q12 [facility] Promethazine HCl/Dextromethorphan (Phenergan Dm Syrup) 5 ml PO Q6H PRN PRN Reason: Cough Last Admin: 03/03/18 09:22 Dose: 5 ml Sitagliptin Phosphate (Januvia) 100 mg PO DAILY [facility] Last Admin: 03/03/18 09:22 Dose: 100 mg Physical Exam - Constitutional Appears: No Acute Distress - Head Exam Head Exam: ATRAUMATIC, NORMAL INSPECTION, NORMOCEPHALIC - Respiratory Exam Respiratory Exam: Decreased Breath Sounds (bilateral bases), Wheezes. absent: Respiratory Distress - Cardiovascular Exam Cardiovascular Exam: REGULAR RHYTHM. absent: Bradycardia, Tachycardia - GI/Abdominal Exam GI & Abdominal Exam: Normal Bowel Sounds, Soft. absent: Diminished Bowel Sounds , Distended, Firm, Tenderness - Extremities Exam Extremities exam: Positive for: normal inspection. Negative for: pedal edema, tenderness - Neurological Exam Neurological exam: Alert, Oriented x3 - Skin Skin Exam: Dry, Intact, Normal Color, Warm Results - Vital Signs Recent Vital Signs: Last Vital Signs Temp 97.6 F 03/04/18 06:00 Pulse 75 03/04/18 06:00 Resp 16 03/04/18 06:00 BP 105/64 03/04/18 06:00 Pulse Ox 95 03/04/18 06:00 - Labs Result Diagrams: 03/04/18 06:10 03/04/18 06:10 Labs: Laboratory Results - last 24 hr 03/03/18 03/03/18 03/03/18 11:17 16:07 21:25 WBC RBC Hgb Hct MCV MCH MCHC RDW Plt Count MPV Sodium Potassium Chloride Carbon Dioxide Anion Gap BUN Creatinine Est GFR ( Amer) Est GFR (Non-Af Amer) POC Glucose (mg/dL) 293 H 197 H 144 H Random Glucose Calcium Total Bilirubin AST ALT Alkaline Phosphatase Total Protein Albumin Globulin Albumin/Globulin Ratio 03/04/18 03/04/18 06:10 06:10 WBC 7.3 RBC 3.95 Hgb 11.3 L Hct 37.8 MCV 95.7 MCH 28.6 MCHC 29.9 L RDW 15.5 H Plt Count 218 MPV 12.4 H Sodium 143 Potassium 4.9 Chloride 101 Carbon Dioxide 35 H Anion Gap 11 BUN 39 H Creatinine 1.0 Est GFR ( Amer) > 60 Est GFR (Non-Af Amer) 57 POC Glucose (mg/dL) Random Glucose 245 H Calcium 9.4 Total Bilirubin 0.1 L AST 45 H ALT 30 Alkaline Phosphatase 50 Total Protein 6.1 Albumin 3.3 Globulin 2.8 Albumin/Globulin Ratio 1.2 Assessment & Plan - Assessment and Plan (Free Text) Assessment: 58 yo female with PMH of HTN, COPD, diabetes, h/o rectal cancer s/p resection and chemotherapy and mytonic dysthrophy presented for acute bronchitis possible PNA,
[2018-03-04] MEDS: Insulin Lispro 1 UNITS/0.01 ML SC SCH ×2 (11:31→17:15)
[2018-03-04] MEDS: Enoxaparin 40 mg Syringe SC SCH (11:32)
[2018-03-04] MEDS: levoFLOXacin 500 mg in D5W 500 MG/100 ML BAG IVPB SCH (11:36)
--- NOTE | 2018-03-04 12:05 | PN ---
DATE: 03/04/2018 SUBJECTIVE: She is resting comfortably in bed, a little bit better breathing her ears are bothering her that come and go. MEDICATIONS: She is on acetylcysteine; Colace; DuoNebs; insulin; Januvia; Kayexalate; Lasix; Levaquin; Levemir; Lovenox; Phenergan; Solu-Medrol, she is down to 30 IV every 12 hours; Synthroid and TriCor. PHYSICAL EXAMINATION: VITAL SIGNS: Temperature 97.6, 75 pulse, 105/64 blood pressure, 95% O2 sat on 3 liters. HEENT: Head is atraumatic, normocephalic. HEART: Regular rate. LUNGS: Decreased breath sounds, but fairly clear. Occasional congestion, changes with cough. She is still kind of tight with the breathing. ABDOMEN: Soft. EXTREMITIES: No edema. LABORATORY DATA: She has a 143 sodium, potassium 4.9, BUN 39, creatinine 1, GFR is 57, sugar is 245, calcium is 9.4, total bili is 0.1, AST is 45, ALT is 30, alkaline phosphatase is 50, total protein 6.1. White count 7.3, hemoglobin 11.3, hematocrit 37.8, platelets of 218. She is being seen by Pulmonary for a bad COPD with decrease in the Solu-Medrol. Physical Therapy feels that she should go to TCU. We will try for TCU evaluation or physical therapy before she goes home. Continue aggressive treatment for her lungs. Tom Contreras DO MTDD
[2018-03-04 16:32] VITALS: BP 96/57; PULSE 86; TEMP 97.9
--- NOTE | 2018-03-04 16:56 | CP.PCM.CON ---
History of Present Illness - History of Present Illness History of Present Illness: 58 year old female with PMH of history of myotonic dystrophy, hypothyroidism, history of tracheostomy and PEG tube placement, S/P ileostomy, Anal cancer S/P resection, history of E. coli urinary tract infection, history of bilateral healthcare-associated pneumonia, HTN, COPD came in to [facility] because of coughing, shortness of breath with yellowish phlegm. She denies having fever or chills, no nausea or vomiting, no chest pain, no SOB, no headache or dizziness, no abdominal pain, no diarrhea, no dysuria, no sore throat, no rhinorrhea. She was started on treatment for acute bronchitis, but there is possibility of left sided pneumonia on CXR. She also has gram negative bacilli in the urine but has no dysuria, no urinary frequency or urgency. Infectious diseases consult is requested to further evaluate and manage. Review of Systems - Review of Systems All systems: reviewed and no additional remarkable complaints except (as per HPI ) Past Patient History - Infectious Disease Hx of Infectious Diseases: None - Tetanus Immunizations Tetanus Immunization: Unknown - Past Social History Smoking Status: Never Smoked - CARDIAC Hx Cardiac Disorders: No - PULMONARY Hx Chronic Obstructive Pulmonary Disease (COPD): Yes - NEUROLOGICAL Hx Neurological Disorder: No - HEENT Hx HEENT Problems: Yes (pt stated "I need glasses") Hx Cataracts: Yes (bilateral cataract surgery) Other/Comment: removal of macular pocket of right eye/ jaw sx - RENAL Hx Chronic Kidney Disease: No - ENDOCRINE/METABOLIC Hx Diabetes Mellitus Type 2: Yes Hx Hypothyroidism: Yes - HEMATOLOGICAL/ONCOLOGICAL Hx Blood Disorders: Yes Hx Anemia: Yes (blood transfusion) Hx Cancer: Yes (rectal 2012) Hx Chemotherapy: Yes - INTEGUMENTARY Hx Dermatological Problems: No Hx Basil Cell: No Hx Eczema: No Hx Melanoma: No Hx Psoriasis: No Hx Squamous Cell: No Other/Comment: dry skin to feet, multiple surgical scars to abd, multiple small brown skin discoloratins to ble, slight red blanchable dry skin to buttocks, crooked great toes, multiple healed abd surgical scars - MUSCULOSKELETAL/RHEUMATOLOGICAL Hx Musculoskeletal Disorders: Yes (myotonic dystrophy dx ) Hx Arthritis: Yes (knees) Hx Back Pain: Yes Hx Falls: Yes (last fall 12/01/17) Hx Unsteady Gait: Yes (rollator, raised toilet seat) Other/Comment: muscle weakness, chronic knee pain/sweling from arthritis right more than left x 1 yr - GASTROINTESTINAL Hx Gastrointestinal Disorders: Yes (RECTAL CA WAS ON CHEMO,HAD SX,PEG IN AND OUT ) Hx Colostomy: Yes (with reversal) Hx Diverticulitis: Yes Hx Gall Bladder Disease: Yes Other/Comment: fatty liver, colorectal sx, lower gi bleed, peg tube in and out, gastrosotmy 2011, colonoscopy 04/13/15 diverticulosis, hemorrhoids, polyp - GENITOURINARY/GYNECOLOGICAL Hx Genitourinary Disorders: Yes (UTI) Hx Incontinence: Yes (uses pullups) Hx Urinary Tract Infection: Yes - PSYCHIATRIC Hx Psychophysiologic Disorder: No Hx Substance Use: No - SURGICAL HISTORY Hx Surgeries: Yes (colostomy reversal) Hx Cholecystectomy: Yes Hx Hysterectomy: Yes (2005) Other/Comment: anterior resection and ileostomy 2011, 10/07/2012 bleeding ileostomy. exp lap, dissection portion of small bowel, dissection of ileostomy - ANESTHESIA Hx Anesthesia Reactions: No Hx Malignant Hyperthermia: No Meds Home Medications: Home Medication List Medication Instructions Recorded Confirmed Type Acetylcysteine 20% 4 ml IH [id number] vial 03/04/18 Rx Albuterol 0.5% [Albuterol 0.5% 0.5 mg IH QID neb 03/04/18 Rx Inhal Jennyfer (2.5 mg/0.5 ml) UD] Albuterol/Ipratropium [Duoneb 3 3 ml IH [id number] neb 03/04/18 Rx mg/0.5 mg (3 ml) UD] Docusate [Colace] 100 mg PO DAILY cap 03/04/18 Rx Enoxaparin [Lovenox] 40 mg SC DAILY syr 03/04/18 Rx Fenofibrate [Tricor] 145 mg PO DAILY tab 03/04/18 Rx Furosemide [Lasix] 20 mg PO DAILY tab 03/04/18 Rx Insulin Detemir [Levemir] 20 unit SC HS unit 03/04/18 Rx Levothyroxine [Synthroid] 75 mcg PO ACB tab 03/04/18 Rx Promethazine DM [Phenergan DM 5 ml PO Q6H PRN cup 03/04/18 Rx Syrup] SITagliptin [Januvia] 100 mg PO DAILY tab 03/04/18 Rx methylPREDNISolone [Solu-Medrol] 30 mg IVP Q12 ml 03/04/18 Rx Allergies/Adverse Reactions: Allergies Allergy/AdvReac Type Severity Reaction Status Date / Time Penicillins Allergy Severe ANGIOEDEMA Verified 03/01/18 05:41 - Medications Medications: Current Medications Acetylcysteine (Acetylcysteine 20%) 4 ml IH [id number] [facility] Last Admin: 03/04/18 13:53 Dose: 4 ml Albuterol Sulfate (Albuterol 0.5% Inhal Jennyfer (2.5 Mg/0.5 Ml) Ud) 0.5 mg IH QIDRESP [facility] Albuterol/Ipratropium (Duoneb 3 Mg/0.5 Mg (3 Ml) Ud) 3 ml IH [id number] [facility] Last Admin: 03/04/18 13:53 Dose: 3 ml Albuterol/Ipratropium (Duoneb 3 Mg/0.5 Mg (3 Ml) Ud) 3 ml IH Q2H PRN PRN Reason: Shortness of Breath Docusate Sodium (Colace) 100 mg PO DAILY [facility] Last Admin: 03/04/18 11:32 Dose: 100 mg Enoxaparin Sodium (Lovenox) 40 mg SC DAILY [facility] PRN Reason: Protocol Last Admin: 03/04/18 11:32 Dose: 40 mg Fenofibrate (Tricor) 145 mg PO DAILY [facility] Last Admin: 03/04/18 11:32 Dose: 145 mg Furosemide (Lasix) 20 mg PO DAILY [facility] Last Admin: 03/04/18 11:36 Dose: Not Given Levofloxacin/Dextrose (Levaquin 500mg) 500 mg in 100 mls @ 100 mls/hr IVPB DAILY [facility] PRN Reason: Protocol Last Admin: 03/04/18 11:36 Dose: 100 mls/hr Insulin Detemir (Levemir) 20 unit SC HS [facility] Last Admin: 03/03/18 21:37 Dose: 20 units Insulin Human Lispro (Humalog) 10 units SC BID [facility] Last Admin: 03/04/18 11:31 Dose: 10 units Insulin Human Regular (Humulin R High) 0 units SC ACHS [facility] PRN Reason: Protocol Last Admin: 03/04/18 12:00 Dose: Not Given Levothyroxine Sodium (Synthroid) 75 mcg PO ACB [facility] Last Admin: 03/04/18 08:16 Dose: 75 mcg Methylprednisolone (Solu-Medrol) 30 mg IVP Q12 [facility] Last Admin: 03/04/18 11:40 Dose: 30 mg Promethazine HCl/Dextromethorphan (Phenergan Dm Syrup) 5 ml PO Q6H PRN PRN Reason: Cough Last Admin: 03/03/18 09:22 Dose: 5 ml Sitagliptin Phosphate (Januvia) 100 mg PO DAILY [facility] Last Admin: 03/04/18 11:33 Dose: 100 mg Physical Exam - Constitutional Appears: Chronically Ill - Head Exam Head Exam: NORMAL INSPECTION - ENT Exam ENT Exam: Mucous Membranes Moist - Neck Exam Neck exam: Negative for: Meningismus - Respiratory Exam Respiratory Exam: Decreased Breath Sounds - Cardiovascular Exam Cardiovascular Exam: +S1, +S2 - GI/Abdominal Exam GI & Abdominal Exam: Soft. absent: Tenderness Results - Vital Signs Recent Vital Signs: Last Vital Signs Temp 97.9 F 03/04/18 14:00 Pulse 86 03/04/18 14:00 Resp 16 03/04/18 14:00 BP 96/57 L 03/04/18 14:00 Pulse Ox 95 03/04/18 14:00 - Labs Result Diagrams: 03/04/18 06:10 03/04/18 06:10 Labs: Laboratory Results - last 24 hr 03/03/18 03/04/18 03/04/18 21:25 06:10 06:10 WBC 7.3 RBC 3.95 Hgb 11.3 L Hct 37.8 MCV 95.7 MCH 28.6 MCHC 29.9 L RDW 15.5 H Plt Count 218 MPV 12.4 H Sodium 143 Potassium 4.9 Chloride 101 Carbon Dioxide 35 H Anion Gap 11 BUN 39 H Creatinine 1.0 Est GFR ( Amer) > 60 Est GFR (Non-Af Amer) 57 POC Glucose (mg/dL) 144 H Random Glucose 245 H Calcium 9.4 Total Bilirubin 0.1 L AST 45 H ALT 30 Alkaline Phosphatase 50 Total Protein 6.1 Albumin 3.3 Globulin 2.8 Albumin/Globulin Ratio 1.2 03/04/18 03/04/18 03/04/18 06:52 11:15 16:26 WBC RBC Hgb Hct MCV MCH MCHC RDW Plt Count MPV Sodium Potassium Chloride Carbon Dioxide Anion Gap BUN Creatinine Est GFR ( Amer) Est GFR (Non-Af Amer) POC Glucose (mg/dL) 213 H 133 H 77 Random Glucose Calcium Total Bilirubin AST ALT Alkaline Phosphatase Total Protein Albumin Globulin Albumin/Globulin Ratio Assessment & Plan - Assessment and Plan (Free Text) Plan: Assessment consider acute bronchitis R/O left sided HCAP asymptomatic bacteriuria with gram negative bacilli history of sepsis secondary to E. coli urinary tract infection, bilateral healthcare-associated pneumonia history of myotonic dystrophy hypothyroidism history of tracheostomy and PEG tube placement S/P ileostomy Anal cancer S/P resection Plan continue Levaquin and start Azactam and will monitor clinically
[2018-03-04] MEDS ORDERED: Albuterol 0.5% Inhal Sol (2.5 mg/0.5 ml) UD IH SCH (19:30)
[2018-03-04] MEDS ORDERED: Aztreonam 1 Gm in NS 100mL 100 ML IVPB SCH (22:00)
--- NOTE | 2018-03-05 20:20 | HP ---
Copied To: Tom Contreras DO Attending MD: Tom Contreras DO HISTORY OF PRESENT ILLNESS: She was transferred from the hospital side, discharged yesterday, moved to the Transitional Care Unit where she is now. She is a 58-year-old female who has myotonic dystrophy was here with severe COPD. She is on IV Solu-Medrol, also Levaquin and needs physical therapy before she would go home. So, she is resting comfortably in bed, eating her breakfast, still coughing a little bit. PAST MEDICAL HISTORY: Hypertension, COPD, diabetes, hypothyroidism, rectal cancer status post resection, chemotherapy. She is coughing up phlegm still not a sick as she was when she was in the hospital, so I gave her a little bit stronger and doing better with physical therapy. She had bilateral cataract surgery, removal of macular things in the right eye and jaw surgery in the past, hypothyroidism. She had cancer, dry skin, multiple surgical scars in the abdomen. Multiple falls, rectal cancer with chemo and surgery. She had a PEG tube, PEG in, PEG out. She had colostomy and reversal. Diverticulitis history, fatty liver, UTIs, multiple bronchitis, cholecystectomy, hysterectomy and of course myotonic dystrophy. FAMILY HISTORY: There is also myotonic dystrophy in her family, hypertension in the family, diabetes in the family. SOCIAL HISTORY: She has never smoked. No alcohol. No drugs. ALLERGIES: SHE HAS ALLERGIES TO PENICILLIN. Fevers are gone. Still coughing up yellow phlegm, not as bad, little stronger overall. No chest pain or palpitations. No diarrhea, nausea. No problems urinating. She does have back pain and neck pain that is persistent. Her weakness is slowly dissipating. MEDICATIONS: She is currently on acetylcysteine, Colace, DuoNebs, insulin, Januvia, Lasix, Levaquin IV, Levemir, Lovenox, promethazine, Solu-Medrol IV, Synthroid and TriCor. LABORATORY DATA: She has a 7 white count, 11.3 hemoglobin, 38.3 hematocrit with a 225 platelets. She has a 141 sodium, potassium is 5, BUN 30, creatinine 0.8. GFR is greater than 60, sugar is 135, calcium 9.3, total bili is 0.2, AST is 48, ALT is 21, alkaline phosphatase 45, total protein 6, albumin is 3.3, globulin is 2.7. She was already seen by Pulmonary. PHYSICAL EXAMINATION: GENERAL: She is alert and oriented x3 on oxygen. VITAL SIGNS: She has a 98 temperature, 80 pulse, 108/69 blood pressure, 98% O2 sat on 35% oxygen. HEENT: Head: Atraumatic, normocephalic. Extraocular muscles are intact. NECK: Supple. No palpable lymphadenopathy. LUNGS: There are some wheezes. It changes with cough. It is better, breathing more inspiration, but still some congestion. HEART: Regular rate. Normal S1, S2. ABDOMEN: Soft, nontender. Positive bowel sounds. No guarding. No rebound. No CVA tenderness. EXTREMITIES: No edema, but she is weak bilaterally. She does not walk well even with a walker and assistance. Suggested to get more physical therapy. NEUROLOGIC: GCS is 15. Cranial nerves II-XII grossly intact. Speech is normal. Still lethargic. No apparent rashes or ulcers I could appreciate. LYMPHATICS: Thyroid midline. She has severe COPD on Solu-Medrol IV and Levaquin IV, history of myotonic dystrophy. We will continue to check her labs as per Pulmonary as we weaned down her medication for the lungs and I will continue with encouragement with physical therapy and treatment. She has acute bronchitis, COPD, left basal atelectasis versus pneumonia, advanced myotonic dystrophy, chronic respiratory insufficiency. Hopefully, she will use a BiPAP. Tom Contreras, DO : 03/05/2018 9:45:30
== END 2018-03-04 17:52 | DRG 191 ==
LOC: ED 05:35 → ERH 07:56 → 5RNO 08:48
PROVIDERS: ADMIT Family Medicine; ATTEND Family Medicine
DX: J44.1 Chronic obstructive pulmonary disease with (acute) exacerbation (principal); J98.11 Atelectasis; J44.0 Chronic obstructive pulmonary disease with (acute) lower respiratory infection; J20.9 Acute bronchitis, unspecified; E03.9 Hypothyroidism, unspecified; G71.11 Myotonic muscular dystrophy; E11.9 Type 2 diabetes mellitus without complications; I10 Essential (primary) hypertension; K59.00 Constipation, unspecified; K76.0 Fatty (change of) liver, not elsewhere classified; Z53.20 Procedure and treatment not carried out because of patient's decision for unspecified reasons; Z79.4 Long term (current) use of insulin; Z79.899 Other long term (current) drug therapy; Z85.048 Personal history of other malignant neoplasm of rectum, rectosigmoid junction, and anus; Z87.440 Personal history of urinary (tract) infections; Z90.49 Acquired absence of other specified parts of digestive tract; Z90.710 Acquired absence of both cervix and uterus; Z93.2 Ileostomy status; B96.20 Unspecified Escherichia coli [E. coli] as the cause of diseases classified elsewhere; R06.89 Other abnormalities of breathing; Z98.42 Cataract extraction status, left eye; Z98.41 Cataract extraction status, right eye; Z88.0 Allergy status to penicillin; R40.2412 Glasgow coma scale score 13-15, at arrival to emergency department; Z91.14 Patient's other noncompliance with medication regimen; R32 Unspecified urinary incontinence

== ENCOUNTER 2018-03-04 17:49 | Inpatient (IN) | payer MEDICARE, MEDICAID ==
[2018-03-04] MEDS ORDERED: Albuterol-Ipratrop 3 mg / 0.5 (3 ml) UD IH PRN (18:15)
[2018-03-04 18:36] VITALS: BMI 23.1
[2018-03-04] MEDS ORDERED: Albuterol 0.5% Inhal Sol (2.5 mg/0.5 ml) UD IH SCH (20:00)
[2018-03-04] MEDS: Acetylcysteine 20% Inhal Soln (4ml) IH SCH (20:53)
[2018-03-04] MEDS: Albuterol-Ipratrop 3 mg / 0.5 (3 ml) UD IH SCH (20:53)
[2018-03-04] MEDS ORDERED: MethylPREDNISolone 40 mg Vial IVP SCH (22:00)
[2018-03-04] MEDS: Insulin Detemir 100 units/ml Vial (Levemir) SC SCH (22:28)
[2018-03-04] MEDS: Insulin Reg-HIGH-Coverage SC SCH (22:28)
[2018-03-04] MEDS: Promethazine DM 6.25 mg-15 mg/5 ml Syrup PO PRN (22:30)
[2018-03-05] MEDS: Albuterol-Ipratrop 3 mg / 0.5 (3 ml) UD IH SCH ×4 (02:17→20:36)
[2018-03-05] MEDS: Acetylcysteine 20% Inhal Soln (4ml) IH SCH ×4 (02:17→20:36)
[2018-03-05] MEDS ORDERED: levoFLOXacin 500 mg in D5W 500 MG/100 ML BAG IVPB SCH (06:00)
[2018-03-05] MEDS: Enoxaparin 40 mg Syringe SC SCH (06:07)
[2018-03-05] MEDS: Levothyroxine 75 MCG TAB PO SCH (06:08)
[2018-03-05 07:08] LABS: BASO # 0.01 K/mm3 (0.0-2.0); BASO % 0.1 % (0.0-3.0); EOS % 0.1 % (1.5-5.0); GRAN # 5.63 (1.4-6.5); GRAN % 80.3 % (50.0-68.0); HEMOGLOBIN 11.3 g/dL (12.0-16.0); LYMPH % 14.7 % (22.0-35.0); MEAN CELL VOLUME 95.5 fl (80.0-105.0); MEAN CORPUSCULAR HEMOGLOBIN 28.2 pg (25.0-35.0); MEAN CORPUSCULAR HGB CONC 29.5 g/dl (31.0-37.0); MONO # 0.3 (0.1-0.6); MONO % 4.8 % (1.0-6.0); RBC 4.01 10^6/uL (3.5-6.1); RED CELL DISTRIBUTION WIDTH 15.3 % (11.5-14.5)
[2018-03-05 07:19] LABS: ALB/GLOB RATIO 1.2 (1.1-1.8); ALBUMIN 3.3 g/dL (3.0-4.8); ALT/SGPT 21 U/L (7-56); AST/SGOT 48 U/L (14-36); BLOOD UREA NITROGEN 38 mg/dL (7-21); CALCIUM 9.3 mg/dL (8.4-10.5); GFR AFRICAN-AMERICAN > 60; GFR NON-AFRICAN AMERICAN > 60
[2018-03-05] MEDS: Insulin Reg-HIGH-Coverage SC SCH ×4 (08:04→22:04)
[2018-03-05] MEDS: Insulin Lispro 1 UNITS/0.01 ML SC SCH ×2 (08:28→17:45)
--- NOTE | 2018-03-05 08:42 | PN ---
Copied To: Adam Leyva MD Attending MD: Adam Levya MD. DATE: 03/05/2018 PULMONARY NOTE SUBJECTIVE: The patient appears comfortable this morning. She is not short of breath at rest. OBJECTIVE: VITAL SIGNS: Last temperature recorded is 97.9, pulse is 80, respirations 18/20, blood pressure 108/69. Oxygen saturation on nasal cannula is 95%. HEENT: Normocephalic, atraumatic. No JVD. CARDIOVASCULAR: Positive S1, S2. No S3 gallop. LUNGS: Decreased breath sounds at the bases with crackles. Minimal/less rhonchi. No wheezing. EXTREMITIES: Mild edema. No cyanosis, no clubbing. Calves are nontender to palpation. GI: Abdomen is soft, nontender and nondistended. Bowel sounds are positive. SKIN: No acute rash. NEUROLOGIC: Exam limited at the present time. IMPRESSION: 1. Acute bronchitis. 2. Chronic obstructive pulmonary disease. 3. Left basilar atelectasis versus pneumonia. 4. Advanced myotonic dystrophy. 5. Chronic respiratory insufficiency. PLAN: The patient appears comfortable this morning. She is not short of breath at rest. She does state to feeling better overall. I did discuss the case with the night nurse at length. The night nurse stated that the patient had a good night. In addition, the patient did wear her BiPAP last night. On physical exam, there is definitely less bronchospasm noted. In addition, the alveolar-arterial gradient is also less. I will continue with the current nebulizer treatments and intravenous steroids for now. The patient is also on chest percussion therapy. I will also continue with the BiPAP at night. The patient remains on antibiotic therapy. There are no temperatures noted. There is no leukocytosis. The patient is now on the transitional unit where she will participate with physical therapy. Clinical status is certainly improved - compared to the initial presentation. However, again, the future status/prognosis for this patient does remain poor. I will discuss the above with Dr. Contreras. Adam Leyva MD [facility]
[2018-03-05] MEDS: Promethazine DM 6.25 mg-15 mg/5 ml Syrup PO PRN (10:31)
[2018-03-05] MEDS: MethylPREDNISolone 40 mg Vial IVP SCH (17:49)
--- NOTE | 2018-03-05 20:20 | HP ---
Copied To: Tom Contreras DO Attending MD: Tom Contreras DO HISTORY OF PRESENT ILLNESS: She was transferred from the hospital side, discharged yesterday, moved to the Transitional Care Unit where she is now. She is a 58-year-old female who has myotonic dystrophy was here with severe COPD. She is on IV Solu-Medrol, also Levaquin and needs physical therapy before she would go home. So, she is resting comfortably in bed, eating her breakfast, still coughing a little bit. PAST MEDICAL HISTORY: Hypertension, COPD, diabetes, hypothyroidism, rectal cancer status post resection, chemotherapy. She is coughing up phlegm still not a sick as she was when she was in the hospital, so I gave her a little bit stronger and doing better with physical therapy. She had bilateral cataract surgery, removal of macular things in the right eye and jaw surgery in the past, hypothyroidism. She had cancer, dry skin, multiple surgical scars in the abdomen. Multiple falls, rectal cancer with chemo and surgery. She had a PEG tube, PEG in, PEG out. She had colostomy and reversal. Diverticulitis history, fatty liver, UTIs, multiple bronchitis, cholecystectomy, hysterectomy and of course myotonic dystrophy. FAMILY HISTORY: There is also myotonic dystrophy in her family, hypertension in the family, diabetes in the family. SOCIAL HISTORY: She has never smoked. No alcohol. No drugs. ALLERGIES: SHE HAS ALLERGIES TO PENICILLIN. Fevers are gone. Still coughing up yellow phlegm, not as bad, little stronger overall. No chest pain or palpitations. No diarrhea, nausea. No problems urinating. She does have back pain and neck pain that is persistent. Her weakness is slowly dissipating. MEDICATIONS: She is currently on acetylcysteine, Colace, DuoNebs, insulin, Januvia, Lasix, Levaquin IV, Levemir, Lovenox, promethazine, Solu-Medrol IV, Synthroid and TriCor. LABORATORY DATA: She has a 7 white count, 11.3 hemoglobin, 38.3 hematocrit with a 225 platelets. She has a 141 sodium, potassium is 5, BUN 30, creatinine 0.8. GFR is greater than 60, sugar is 135, calcium 9.3, total bili is 0.2, AST is 48, ALT is 21, alkaline phosphatase 45, total protein 6, albumin is 3.3, globulin is 2.7. She was already seen by Pulmonary. PHYSICAL EXAMINATION: GENERAL: She is alert and oriented x3 on oxygen. VITAL SIGNS: She has a 98 temperature, 80 pulse, 108/69 blood pressure, 98% O2 sat on 35% oxygen. HEENT: Head: Atraumatic, normocephalic. Extraocular muscles are intact. NECK: Supple. No palpable lymphadenopathy. LUNGS: There are some wheezes. It changes with cough. It is better, breathing more inspiration, but still some congestion. HEART: Regular rate. Normal S1, S2. ABDOMEN: Soft, nontender. Positive bowel sounds. No guarding. No rebound. No CVA tenderness. EXTREMITIES: No edema, but she is weak bilaterally. She does not walk well even with a walker and assistance. Suggested to get more physical therapy. NEUROLOGIC: GCS is 15. Cranial nerves II-XII grossly intact. Speech is normal. Still lethargic. No apparent rashes or ulcers I could appreciate. LYMPHATICS: Thyroid midline. She has severe COPD on Solu-Medrol IV and Levaquin IV, history of myotonic dystrophy. We will continue to check her labs as per Pulmonary as we weaned down her medication for the lungs and I will continue with encouragement with physical therapy and treatment. She has acute bronchitis, COPD, left basal atelectasis versus pneumonia, advanced myotonic dystrophy, chronic respiratory insufficiency. Hopefully, she will use a BiPAP. Tom Contreras, DO : 03/05/2018 9:45:30
[2018-03-05] MEDS: Insulin Detemir 100 units/ml Vial (Levemir) SC SCH (22:05)
--- NOTE | 2018-03-06 01:09 | CON ---
Copied To: Dallin Glynn MD Attending MD: Dallin Glynn MD DATE: 03/05/2018 LOCATION: The patient is seen earlier this morning, in room 327, bed 1. CHIEF COMPLAINT: Weakness times several days. HISTORY OF PRESENT ILLNESS: This is a 58-year-old female with past medical history of myotonic dystrophy, hypothyroidism, history of tracheostomy in the past, history of PEG tube placement, history of ileostomy, history of anal cancer, anal cancer surgery, hypertension, chronic obstructive lung disease, was admitted through the emergency room because of pulmonary symptoms, and coughing and shortness of breath. The cough is described yellowish phlegm. The patient has had chemotherapy and has anemia, now transferred to transitional care. REVIEW OF SYSTEMS: A 12-point review of systems performed. No fevers, no chills reported. No chest pain. There is shortness of breath and cough. No abdominal pain, no diarrhea. PAST MEDICAL HISTORY: Significant for renal cancer, chronic obstructive lung disease, E. coli urinary tract infections, anemia, hypothyroidism, myotonic dystrophy. PAST SURGICAL HISTORY: Significant for anal cancer surgery, ileostomy, PEG tube placement, tracheostomy and cholecystectomy. ALLERGIES: THE PATIENT IS ALLERGIC TO PENICILLIN. THE PATIENT'S TYPE OF ALLERGY IS NOT ENTIRELY CLEAR. MEDICATIONS: At home are reviewed. PHYSICAL EXAMINATION: GENERAL: On exam, patient is in bed, in no acute distress, chronically ill. VITAL SIGNS: Temperature of 98; heart rate of 80, it was up to 93 in the acute care; blood pressure of 106/60; with a respiratory rate of up to 21 and 22 ago, currently 18. HEENT: Unremarkable. NECK: Supple. LUNGS: Have decreased breath sounds. HEART: Normal S1 and S2. ABDOMEN: Soft, nontender. LABORATORY EXAMINATION: Reveals a white count of 7, hemoglobin of 11. Chemistries are noted, and patient's AST is 48, BUN of 38, creatinine 0.8. Urinalysis is noted, unremarkable, 15 to 20 wbc's. Microbiology reveals blood cultures are negative. Urine culture is ESBL E. coli. However, the urinalysis had only 50 to 20 wbc's. ASSESSMENT AND PLAN: This is a 58-year-old female with myotonic dystrophy and hypothyroidism, anal cancer, E. coli urinary tract infection, chronic obstructive lung disease, chemotherapy, hypertension, admitted with pulmonary symptoms and found to have extended-spectrum beta-lactamase Escherichia coli in the urine culture, and currently has no symptoms as such, and asymptomatic bacteriuria not requiring treatment. The patient did have a chest x-ray on 03/01/2018, which revealed atelectasis. Dr. Leyva's progress note from this morning is reviewed acute bronchitis and chronic obstructive lung disease, left basilar atelectasis versus pneumonia, advanced myotonic dystrophy, chronic respiratory failure . Patient on Levaquin and Solu-Medrol. We will order a stat procalcitonin. We will follow closely with you. Dallin Glynn MD
[2018-03-06] MEDS: Acetylcysteine 20% Inhal Soln (4ml) IH SCH ×4 (02:00→21:18)
[2018-03-06] MEDS: Albuterol-Ipratrop 3 mg / 0.5 (3 ml) UD IH SCH ×4 (02:00→21:18)
[2018-03-06] MEDS: Enoxaparin 40 mg Syringe SC SCH (05:49)
[2018-03-06] MEDS: Promethazine DM 6.25 mg-15 mg/5 ml Syrup PO PRN ×2 (05:49→20:10)
[2018-03-06] MEDS: levoFLOXacin 500 MG TAB PO SCH (05:49)
[2018-03-06] MEDS: MethylPREDNISolone 40 mg Vial IVP SCH ×2 (05:50→18:09)
[2018-03-06] MEDS: Levothyroxine 75 MCG TAB PO SCH (05:51)
[2018-03-06] MEDS: Insulin Lispro 1 UNITS/0.01 ML SC SCH ×2 (06:54→18:06)
[2018-03-06] MEDS: Insulin Reg-HIGH-Coverage SC SCH ×4 (06:55→21:58)
--- NOTE | 2018-03-06 09:41 | PN ---
Copied To: Dallin Glynn MD Attending MD: Dallin Glynn MD DATE: 03/06/2018 SUBJECTIVE: The patient is seen earlier today in room 327. No fevers, no chills. No nausea. PHYSICAL EXAMINATION: VITAL SIGNS: On exam, temperature is 98, blood pressure is 102/60, respiratory rate of 20. HEENT: Examination of HEENT is unremarkable. NECK: Supple. LUNGS: Have decreased breath sounds. HEART: Normal S1, S2. ABDOMEN: Soft, nontender. LABORATORY DATA: Laboratory examination reveals a white count of 7, hemoglobin of 13, platelets of 225. ASSESSMENT AND PLAN: A 58-year-old female seen earlier this morning in the Transitional Care. A 58-year-old female with myotonic dystrophy, hypothyroidism, anal cancer, Escherichia. coli urinary tract infection, chronic obstructive lung disease, chemotherapy, hypertension, admitted with pulmonary symptoms, found to have extended spectrum beta-lactamase Escherichia. coli in the urine. The patient did have a chest x-ray revealed atelectasis. Dr. Leyva's note is reviewed. Currently on oral Levaquin, Solu-Medrol. We will follow with you. Dallin Glynn MD
--- NOTE | 2018-03-06 11:22 | PN ---
Copied To: Tom Contreras DO Attending MD: Deon Rojas MD DATE: 03/06/2018 SUBJECTIVE: I saw Cyndi in her bed on the TCU. She is eating fairly well. She is still coughing up, congestion. She is refusing BiPAP and refusing suction, which is causing her to have a problem in her lungs with phlegm. MEDICATIONS: She is on acetylcysteine, Colace, DuoNebs, insulin, Januvia, Lasix, Levaquin, Levemir, Lovenox, Phenergan, Solu-Medrol down to 30 IV every 12, Synthroid and Tricor. PHYSICAL EXAMINATION: VITAL SIGNS: 98.1 temp, 88 pulse, 102/60 blood pressure, 20 respiratory rate, 97% O2 sat on room air. HEENT: Head is atraumatic, normocephalic. Throat is moist. NECK: Supple. HEART: Regular rate. LUNGS: Decreased breath sounds. Congestion bilaterally. Changes with cough. ABDOMEN: Soft. EXTREMITIES: Weak. No edema. She is thin and frail. LABORATORY DATA: She has a 7 white count yesterday, 11.3 hemoglobin, 38.3 hematocrit with 225 platelets. Last blood sugar was 189. She had a BUN of 38, creatinine 0.8, GFR is greater than 60, calcium is 9.3, AST is 48, ALT is 21, alk phos 45. ASSESSMENT AND PLAN: She is being seen by Infectious Disease and by Pulmonology. She has Escherichia coli urinary tract infection, myotonic dystrophy. She needs to be suctioned, but she is refusing, for her chronic obstructive pulmonary disease, possible pneumonia. She needs physical therapy. Continue aggressive treatment and care on the Transitional Care Unit. Tom Contreras DO
--- NOTE | 2018-03-06 13:45 | PN ---
Copied To: Adam Leyva MD Attending MD: Adam Leyva MD DATE: 03/06/2018 PULMONARY NOTE SUBJECTIVE: The patient appears comfortable this morning. She is not short of breath at rest. PHYSICAL EXAMINATION: VITAL SIGNS: Temperature is 98.1, pulse 88, respirations 18, blood pressure 100/61. Oxygen saturation on nasal cannula is 97%. HEENT: Normocephalic, atraumatic. No JVD. CARDIOVASCULAR: Positive S1, S2. No S3 gallop. LUNGS: Decreased breath sounds at the bases with crackles. Mild bilateral rhonchi. No wheezing. EXTREMITIES: Mild edema. No cyanosis, no clubbing. Calves are nontender to palpation. GASTROINTESTINAL: Abdomen is soft, nontender, nondistended. Bowel sounds are positive. SKIN: No acute rash. NEUROLOGIC: Limited at the present time. IMPRESSION: 1. Acute bronchitis. 2. Chronic obstructive pulmonary disease. 3. Left basilar atelectasis versus pneumonia. 4. Advanced myotonic dystrophy. 5. Chronic respiratory insufficiency. PLAN: The patient appears comfortable this morning. She is not short of breath at rest. She does state to feeling better overall. I did discuss the case with the night nurse at length. The night nurse stated that the patient had a good night, and did wear her BiPAP. However, the patient continues to refuse suctioning. With her advanced myotonic dystrophy, I explained to the patient that additional mucous plugging can cause decompensation in her respiratory status. Because the patient cannot cough up her secretions, I do feel that suctioning is worthwhile in this patient. However, she continues to refuse this intervention. On physical exam, she remains in [id number] bronchospasm. I will continue the current nebulizer treatments and intravenous steroids for now. I will also continue with the chest percussion therapy and aspiration precautions. The patient remains on antibiotic therapy. There are no temperatures noted. There is no leukocytosis. Clinical status of the patient is certainly improved - compared to her initial presentation. However, again, unfortunately, the future status/prognosis for this patient does remain poor. All are aware. I did discuss the above with Dr. Contreras. Adam Leyva MD [facility] # [id number] MTDD
[2018-03-06] MEDS: Insulin Detemir 100 units/ml Vial (Levemir) SC SCH (21:58)
[2018-03-07] MEDS: Acetylcysteine 20% Inhal Soln (4ml) IH SCH ×4 (01:24→20:07)
[2018-03-07] MEDS: Albuterol-Ipratrop 3 mg / 0.5 (3 ml) UD IH SCH ×4 (01:24→20:07)
[2018-03-07] MEDS: Enoxaparin 40 mg Syringe SC SCH (05:37)
[2018-03-07] MEDS: levoFLOXacin 500 MG TAB PO SCH (05:37)
[2018-03-07] MEDS: MethylPREDNISolone 40 mg Vial IVP SCH ×3 (05:38→21:53)
[2018-03-07] MEDS: Promethazine DM 6.25 mg-15 mg/5 ml Syrup PO PRN ×2 (05:38→21:52)
[2018-03-07] MEDS: Levothyroxine 75 MCG TAB PO SCH (05:39)
[2018-03-07] MEDS: Insulin Reg-HIGH-Coverage SC SCH ×4 (07:15→22:14)
[2018-03-07] MEDS: Insulin Lispro 1 UNITS/0.01 ML SC SCH ×2 (07:16→17:17)
--- NOTE | 2018-03-07 07:55 | PN ---
Copied To: Adam Leyva MD Attending MD: Adam Leyva MD DATE: 03/07/2018 PULMONARY NOTE SUBJECTIVE: The patient appears comfortable this morning. She is not short of breath at rest. PHYSICAL EXAMINATION: VITAL SIGNS: Temperature is 98.7, pulse is 80, respirations 18, blood pressure 101/62. Oxygen saturation on nasal cannula is 93%. HEENT: Normocephalic, atraumatic. No JVD. CARDIOVASCULAR: Positive S1, S2. No S3 gallop. LUNGS: Decreased breath sounds at the bases with crackles. Less rhonchi. No wheezing. EXTREMITIES: Mild edema. No cyanosis. No clubbing. Calves are nontender to palpation. GI: Abdomen is soft, nontender and nondistended. Bowel sounds are positive. SKIN: No acute rash. NEUROLOGIC: Limited at the present time. IMPRESSION: 1. Acute bronchitis. 2. Chronic obstructive pulmonary disease. 3. Left basilar atelectasis versus pneumonia. 4. Advanced myotonic dystrophy. 5. Chronic respiratory insufficiency. PLAN: The patient appears more comfortable this morning. She is not short of breath at rest. She does state to feeling better overall. I did discuss the case with the night nurse at length. The night nurse stated that the patient continues to wear the BiPAP "on and off." She also continues to refuse suctioning. On physical exam, there is less bronchospasm noted. I will continue with the current nebulizer treatments and decrease the intravenous steroids this morning. I would continue with the antibiotic coverage as per Infectious Disease. Input by Dr. Glynn is noted. There are no temperatures noted. There is no leukocytosis. Clinical status of the patient is certainly improved - compared to the initial presentation. However, again, the future status/prognosis for this patient is poor. All are aware. I will discuss the above with Dr. Contreras. Adam Leyva MD [facility]
--- NOTE | 2018-03-07 11:03 | PN ---
Copied To: Dallin Glynn MD Attending MD: Dallin Glynn MD DATE: 03/07/2018 SUBJECTIVE: The patient is in bed, in no acute distress, nontoxic. PHYSICAL EXAMINATION: VITAL SIGNS: Temperature is 98, blood pressure is 101/60, respiratory rate of 20. HEENT: Unremarkable. NECK: Supple. LUNGS: Have decreased breath sounds. HEART: Normal S1, S2. ABDOMEN: Soft, nontender. LABORATORY DATA: Laboratory examination is noted. Dr. Leyva's note is reviewed from this morning and he states the patient has acute bronchitis, chronic obstructive lung disease, left basal atelectasis versus pneumonia, advanced myotonic dystrophy and chronic respiratory insufficiency and the patient does continue with the BiPap on and off. Review of orders reveals the patient to be on p.o. Levaquin, Solu-Medrol. ASSESSMENT AND PLAN: A 58-year-old female seen earlier this morning in room 327 in Transitional Care with history of myotonic dystrophy, hypothyroidism, anal cancer, Escherichia.coli urinary tract infection, chronic obstructive lung disease, has had chemotherapy. The patient also with hypertension, admitted with pulmonary symptoms, found to have extended-spectrum beta-lactamase Escherichia.coli in the urine and currently on p.o. Levaquin. Would complete a short course of the p.o. Levaquin in a patient whose procalcitonin on 03/05/2018 was negative. Dallin Glynn MD
[2018-03-07] MEDS: Insulin Detemir 100 units/ml Vial (Levemir) SC SCH (22:14)
[2018-03-08] MEDS: Acetylcysteine 20% Inhal Soln (4ml) IH SCH ×4 (02:01→20:52)
[2018-03-08] MEDS: Albuterol-Ipratrop 3 mg / 0.5 (3 ml) UD IH SCH ×4 (02:02→20:52)
[2018-03-08] MEDS: Levothyroxine 75 MCG TAB PO SCH (05:31)
[2018-03-08] MEDS: levoFLOXacin 500 MG TAB PO SCH (05:32)
[2018-03-08] MEDS: Enoxaparin 40 mg Syringe SC SCH (05:32)
[2018-03-08] MEDS: Promethazine DM 6.25 mg-15 mg/5 ml Syrup PO PRN (05:33)
[2018-03-08] MEDS: Insulin Reg-HIGH-Coverage SC SCH ×3 (06:51→17:37)
[2018-03-08] MEDS: Insulin Lispro 1 UNITS/0.01 ML SC SCH ×2 (06:52→17:36)
[2018-03-08 07:13] LABS: HEMOGLOBIN 11.3 g/dL (12.0-16.0); MEAN CELL VOLUME 94.4 fl (80.0-105.0); MEAN CORPUSCULAR HEMOGLOBIN 28.7 pg (25.0-35.0); MEAN CORPUSCULAR HGB CONC 30.4 g/dl (31.0-37.0); MEAN PLATELET VOLUME 11.7 fl (7.0-11.0); RBC 3.94 10^6/uL (3.5-6.1); WHITE BLOOD COUNT 8.6 10^3/ul (4.5-11.0)
[2018-03-08 07:26] LABS: ALB/GLOB RATIO 1.2 (1.1-1.8); ALBUMIN 3.1 g/dL (3.0-4.8); ALT/SGPT 27 U/L (7-56); AST/SGOT 39 U/L (14-36); BLOOD UREA NITROGEN 44 mg/dL (7-21); CALCIUM 9.5 mg/dL (8.4-10.5); GFR AFRICAN-AMERICAN > 60; GFR NON-AFRICAN AMERICAN > 60
--- NOTE | 2018-03-08 07:47 | PN ---
Copied To: Adam Leyva MD Attending MD: Adam Leyva MD DATE: 03/08/2018 PULMONARY NOTE SUBJECTIVE: The patient appears comfortable this morning. She is not short of breath at rest. OBJECTIVE: VITAL SIGNS: Last temperature recorded is 97.9, pulse this morning is 80, respirations 18, last blood pressure recorded is 90/53. Oxygen saturation on nasal cannula is 94-97%. HEENT: Normocephalic, atraumatic. No JVD. CARDIOVASCULAR: Positive S1, S2. No S3 gallop. LUNGS: Decreased breath sounds at the bases with crackles. Much less rhonchi. No wheezing. EXTREMITIES: Mild edema. No cyanosis, no clubbing. Calves are nontender to palpation. GI: Abdomen is soft, nontender and nondistended. Bowel sounds are positive. SKIN: No acute rash. NEUROLOGIC: Exam limited at the present time. IMPRESSION: 1. Acute bronchitis. 2. Chronic obstructive pulmonary disease. 3. Left basilar atelectasis versus pneumonia. 4. Advanced myotonic dystrophy. 5. Chronic respiratory insufficiency. PLAN: The patient appears comfortable this morning. She is not short of breath at rest. She does state to feeling much better overall. The patient did wear her BiPAP last night. However, she continues to refuse suctioning. On physical exam, there is certainly less bronchospasm noted. In addition, the alveolar-arterial gradient is also less. I will continue with the current nebulizer treatments and low-dose intravenous steroids (decreased yesterday) for now. I have also advised the patient to be out of bed as much as possible. The clinical status of the patient is significantly improved - compared to her initial presentation. However, again, unfortunately, the overall status/prognosis for this patient remains poor. I will discuss the above with Dr. Contreras. Adam Leyva MD [facility]
--- NOTE | 2018-03-08 09:05 | PN ---
Copied To: Tom Contreras DO Attending MD: Tom Contreras DO DATE: 03/08/2018 SUBJECTIVE: I saw her resting comfortably in the Transitional Care Unit. She is getting physical therapy. She is still refusing the BiPAP and suctioning, but her lung sounds a little bit better. She is on acetylcysteine, Colace, DuoNeb, insulin, Januvia, Lasix, Levemir, Lovenox, Phenergan, Solu-Medrol, Synthroid and TriCor. OBJECTIVE: VITAL SIGNS: Temperature are 97.9 temperature, 81 pulse, 99/67 blood pressure and 94% O2 sat on 3 liters. HEENT: Head is atraumatic, normocephalic. Throat is moist. NECK: Supple. HEART: Regular rate. LUNGS: Decreased breath sounds, but clear. Mild congestion, better than the other day, it clears with cough. ABDOMEN: Soft. EXTREMITIES: No edema, but she is weak with myotonic dystrophy. DATA: She had a blood test on 03/08/2018. It 8.6 white count, 11.3 hemoglobin, 37.2 hematocrit with 214 platelets. She has a 139 sodium, potassium 4.6. BUN 44, creatinine 0.8, GFR is greater than 60, sugar is 220. Calcium 9.5, total bili is 0.2, AST is 39, ALT is 27, alkaline phosphatase 44, total protein is 5.7. We will continue with aggressive treatment and care on [facility]. I will discuss with the nursing information systems coordinator about decreasing the Solu-Medrol and she is here for COPD, myotonic dystrophy, hypertension, diabetes, hypothyroid and she is a little bit debilitated, needs physical therapy before she goes home. Tom Contreras DO MTDD
[2018-03-08] MEDS: MethylPREDNISolone 40 mg Vial IVP SCH (09:39)
--- NOTE | 2018-03-08 12:51 | PN ---
DATE: 03/07/2018 SUBJECTIVE: She is complaining about her ears bothering her and she wants to see [facility], so called them in. She is on acetylcysteine, Colace, DuoNeb, insulin, Januvia, Lasix, Levaquin, Levemir, Lovenox, Phenergan, Solu-Medrol 20 every 12 hours, Synthroid, TriCor. PHYSICAL EXAMINATION: VITAL SIGNS: Temperature 98.7, 80 pulse, 101/62 blood pressure, on 2 L nasal cannula. HEENT: Head is atraumatic, normocephalic. HEART: Regular rate. LUNGS: Clear to auscultation with decreased breath sounds, occasional congestion, clears with cough. ABDOMEN: Soft. EXTREMITIES: No edema, but she has myotonic dystrophy and coordination is off, but she tells me that she is trying physical therapy. LABORATORY DATA: Labs on 03/05/2018, were good. Last blood sugar was 242. She is being seen by the fish butcher and Infectious Disease. She is on Solu-Medrol and Levaquin. The [facility] Th[facility]'s opinion, I am going to check labs tomorrow. I encouraged her to use suction, to use the BiPAP, but she has been refusing and we will continue with physical therapy until the [facility] says about the ears. Tom Contreras DO MTDD
--- NOTE | 2018-03-08 15:00 | CP.PCM.PN ---
Subjective - Date & Time of Evaluation Date of Evaluation: 03/08/18 Time of Evaluation: 12:05 - Subjective Subjective: Eating better, no fevers, no abdominal pain, no nausea, no diarrhea, no dysuria. Objective - Vital Signs/Intake and Output Vital Signs (last 24 hours): Temp Pulse Resp BP Pulse Ox 97.9 F 81 20 90/53 L 94 L 03/07/18 16:00 03/07/18 23:40 03/07/18 16:00 03/08/18 05:32 03/07/18 17:29 - Medications Medications: Current Medications Acetylcysteine (Acetylcysteine 20%) 4 ml IH [id number] GABE PRN Reason: Protocol Last Admin: 03/08/18 09:14 Dose: 4 ml Albuterol/Ipratropium (Duoneb 3 Mg/0.5 Mg (3 Ml) Ud) 3 ml IH Q2H PRN; Protocol PRN Reason: Shortness of Breath Albuterol/Ipratropium (Duoneb 3 Mg/0.5 Mg (3 Ml) Ud) 3 ml IH [id number] GABE PRN Reason: Protocol Last Admin: 03/08/18 09:11 Dose: 3 ml Docusate Sodium (Colace) 100 mg PO DAILY GABE PRN Reason: Protocol Last Admin: 03/08/18 09:38 Dose: 100 mg Enoxaparin Sodium (Lovenox) 40 mg SC 0600 GABE PRN Reason: Protocol Last Admin: 03/08/18 05:32 Dose: 40 mg Fenofibrate (Tricor) 145 mg PO DAILY GABE PRN Reason: Protocol Last Admin: 03/08/18 09:38 Dose: 145 mg Furosemide (Lasix) 20 mg PO 0600 GABE PRN Reason: Protocol Last Admin: 03/08/18 05:32 Dose: Not Given Insulin Detemir (Levemir) 20 unit SC HS GABE PRN Reason: Protocol Last Admin: 03/07/18 22:14 Dose: Not Given Insulin Human Lispro (Humalog) 10 units SC 0730,1630 GABE PRN Reason: Protocol Last Admin: 03/08/18 06:52 Dose: 10 units Insulin Human Regular (Humulin R High) 0 units SC ACHS GABE PRN Reason: Protocol Last Admin: 03/08/18 12:14 Dose: Not Given Levothyroxine Sodium (Synthroid) 75 mcg PO 0600 [facility] PRN Reason: Protocol Last Admin: 03/08/18 05:31 Dose: 75 mcg Methylprednisolone (Solu-Medrol) 20 mg IVP Q12 [facility] Last Admin: 03/08/18 09:39 Dose: 20 mg Promethazine HCl/Dextromethorphan (Phenergan Dm Syrup) 5 ml PO Q6H PRN; Protocol PRN Reason: Cough Stop: 03/18/18 18:16 Last Admin: 03/08/18 05:33 Dose: 5 ml Sitagliptin Phosphate (Januvia) 100 mg PO DAILY GABE PRN Reason: Protocol Last Admin: 03/08/18 09:38 Dose: 100 mg - Labs Labs: 03/08/18 06:45 03/08/18 06:45 - Constitutional Appears: Chronically Ill - Head Exam Head Exam: NORMAL INSPECTION - Neck Exam Neck Exam: absent: Meningismus - Respiratory Exam Respiratory Exam: Decreased Breath Sounds - Cardiovascular Exam Cardiovascular Exam: +S1, +S2 - GI/Abdominal Exam GI & Abdominal Exam: Soft. absent: Tenderness Assessment and Plan - Assessment and Plan (Free Text) Plan: Assessment S/P acute bronchitis asymptomatic bacteriuria with gram negative bacilli history of sepsis secondary to E. coli urinary tract infection, bilateral healthcare-associated pneumonia history of myotonic dystrophy hypothyroidism history of tracheostomy and PEG tube placement S/P ileostomy Anal cancer S/P resection Plan completed course of Levaquin - continue to monitor off antibiotics since she is at risk for nosocomial infections
--- NOTE | 2018-03-08 17:05 | CP.PCM.CON ---
History of Present Illness - History of Present Illness History of Present Illness: 58 y/o Female admitted to [facility] [place] with dx of Acute/Chronic COPD exacerbation. Pt has past medical hx significant for COPD, Myotonic Dystrophy, HTN, Hypothyroidism, s/p tracheotomy, Anal Cancer s/p resection now immunosupressed on chemotherapy, DMI, and asymptomatic E.Coli Bacteremia. ENT has been consulted for 3 day hx of hearing loss bilaterally with mild bilateral ear pain. Pt denies prior occurrences of this nature. Pt denies further ENT Complaints besides thick mucus and nasal congestion. PMHX:Acute/Chronic COPD exacerbation. Pt has past medical hx significant for COPD, Myotonic Dystrophy, HTN, Hypothyroidism, s/p tracheotomy, Anal Cancer s/p resection now immunosupressed on chemotherapy and asymptomatic E.Coli Bacteremia and DMI Review of Systems - Constitutional Constitutional: As Per HPI - EENT Eyes: As Per HPI Ears: As Per HPI Nose/Mouth/Throat: As Per HPI - Breasts Breasts: As Per HPI - Cardiovascular Cardiovascular: As Per HPI - Respiratory Respiratory: As Per HPI - Gastrointestinal Gastrointestinal: As Per HPI - Genitourinary Genitourinary: As Per HPI - Reproductive: Female Reproductive:Female: As Per HPI - Menstruation Menstruation: As Per HPI - Musculoskeletal Musculoskeletal: As Per HPI - Integumentary Integumentary: As Per HPI - Neurological Neurological: As Per HPI - Psychiatric Psychiatric: As Per HPI - Endocrine Endocrine: As Per HPI - Hematologic/Lymphatic Hematologic: As Per HPI Past Patient History - Infectious Disease Hx of Infectious Diseases: None - Tetanus Immunizations Tetanus Immunization: Unknown - Past Social History Smoking Status: Never Smoked - CARDIAC Hx Hypertension: Yes - PULMONARY Hx Chronic Obstructive Pulmonary Disease (COPD): Yes - NEUROLOGICAL Hx Neurological Disorder: No - HEENT Hx HEENT Problems: Yes (pt stated "I need glasses") Hx Cataracts: Yes (bilateral cataract surgery) Other/Comment: removal of macular pocket of right eye/ jaw sx - RENAL Hx Chronic Kidney Disease: No - ENDOCRINE/METABOLIC Hx Diabetes Mellitus Type 2: Yes Hx Hypothyroidism: Yes - HEMATOLOGICAL/ONCOLOGICAL Hx Blood Disorders: Yes Hx Anemia: Yes (blood transfusion) Hx Cancer: Yes (rectal 2012) Hx Chemotherapy: Yes - INTEGUMENTARY Hx Dermatological Problems: No Hx Basil Cell: No Hx Eczema: No Hx Melanoma: No Hx Psoriasis: No Hx Squamous Cell: No Other/Comment: dry skin to feet, multiple surgical scars to abd, multiple small brown skin discoloratins to ble, slight red blanchable dry skin to buttocks, crooked great toes, multiple healed abd surgical scars - MUSCULOSKELETAL/RHEUMATOLOGICAL Hx Falls: Yes - GASTROINTESTINAL Hx Gastrointestinal Disorders: Yes (RECTAL CA WAS ON CHEMO,HAD SX,PEG IN AND OUT ) Hx Colostomy: Yes (with reversal) Hx Diverticulitis: Yes Hx Gall Bladder Disease: Yes Other/Comment: fatty liver, colorectal sx, lower gi bleed, peg tube in and out, gastrosotmy 2011, colonoscopy 04/13/15 diverticulosis, hemorrhoids, polyp - GENITOURINARY/GYNECOLOGICAL Hx Reproductive Disorders: No - PSYCHIATRIC Hx Psychophysiologic Disorder: No Hx Substance Use: No - SURGICAL HISTORY Hx Surgeries: Yes (colostomy reversal) Hx Cholecystectomy: Yes Hx Hysterectomy: Yes (2005) Other/Comment: anterior resection and ileostomy 2011, 10/07/2012 bleeding ileostomy. exp lap, dissection portion of small bowel, dissection of ileostomy - ANESTHESIA Hx Anesthesia Reactions: No Hx Malignant Hyperthermia: No Meds Allergies/Adverse Reactions: Allergies Allergy/AdvReac Type Severity Reaction Status Date / Time Penicillins Allergy Severe ANGIOEDEMA Verified 03/05/18 23:33 - Medications Medications: Current Medications Acetylcysteine (Acetylcysteine 20%) 4 ml IH [id number] PRN Reason: Protocol Last Admin: 03/08/18 14:15 Dose: 4 ml Albuterol/Ipratropium (Duoneb 3 Mg/0.5 Mg (3 Ml) Ud) 3 ml IH Q2H PRN; Protocol PRN Reason: Shortness of Breath Albuterol/Ipratropium (Duoneb 3 Mg/0.5 Mg (3 Ml) Ud) 3 ml IH [id number] PRN Reason: Protocol Last Admin: 03/08/18 14:14 Dose: 3 ml Docusate Sodium (Colace) 100 mg PO DAILY GABE PRN Reason: Protocol Last Admin: 03/08/18 09:38 Dose: 100 mg Enoxaparin Sodium (Lovenox) 40 mg SC 0600 GABE PRN Reason: Protocol Last Admin: 03/08/18 05:32 Dose: 40 mg Fenofibrate (Tricor) 145 mg PO DAILY GABE PRN Reason: Protocol Last Admin: 03/08/18 09:38 Dose: 145 mg Furosemide (Lasix) 20 mg PO 0600 GABE PRN Reason: Protocol Last Admin: 03/08/18 05:32 Dose: Not Given Insulin Detemir (Levemir) 20 unit SC HS GABE PRN Reason: Protocol Last Admin: 03/07/18 22:14 Dose: Not Given Insulin Human Lispro (Humalog) 10 units SC 0730,1630 GABE PRN Reason: Protocol Last Admin: 03/08/18 06:52 Dose: 10 units Insulin Human Regular (Humulin R High) 0 units SC ACHS GABE PRN Reason: Protocol Last Admin: 03/08/18 12:14 Dose: Not Given Levothyroxine Sodium (Synthroid) 75 mcg PO 0600 [facility] PRN Reason: Protocol Last Admin: 03/08/18 05:31 Dose: 75 mcg Methylprednisolone (Solu-Medrol) 20 mg IVP Q12 [facility] Last Admin: 03/08/18 09:39 Dose: 20 mg Promethazine HCl/Dextromethorphan (Phenergan Dm Syrup) 5 ml PO Q6H PRN; Protocol PRN Reason: Cough Stop: 03/18/18 18:16 Last Admin: 03/08/18 05:33 Dose: 5 ml Sitagliptin Phosphate (Januvia) 100 mg PO DAILY [facility] PRN Reason: Protocol Last Admin: 03/08/18 09:38 Dose: 100 mg Physical Exam - Constitutional Appears: Well, Non-toxic - Head Exam Head Exam: ATRAUMATIC, NORMAL INSPECTION - Eye Exam Eye Exam: EOMI, Normal appearance, PERRL Pupil Exam: NORMAL ACCOMODATION, PERRL - ENT Exam Additional comments: dry mucus membranes of mouth RT ear A/F level , dry ear canals, no erythema Lft: ear: A/F level, dry cerumen in canal removed with cerumen loop partially Nose: thick mucus noted with inflammation SHON: dry MM, no mass, poor dentition Neck: supple no adenopathy - Neck Exam Neck exam: Negative for: Lymphadenopathy, Tenderness - Respiratory Exam Respiratory Exam: NORMAL BREATHING PATTERN - Psychiatric Exam Psychiatric exam: Normal Affect, Normal Mood - Skin Skin Exam: Normal Color, Warm Results - Vital Signs Recent Vital Signs: Last Vital Signs Temp 96.6 F L 03/08/18 16:00 Pulse 90 08/03/18 16:00 Resp 18 03/08/18 16:00 BP 102/43 L 03/08/18 16:00 Pulse Ox 94 L 03/08/18 16:00 - Labs Result Diagrams: 03/08/18 06:45 03/08/18 06:45 Labs: Laboratory Results - last 24 hr 03/07/18 03/07/18 03/08/18 15:46 21:38 02:30 WBC RBC Hgb Hct MCV MCH MCHC RDW Plt Count MPV Sodium Potassium Chloride Carbon Dioxide Anion Gap BUN Creatinine Est GFR ( Amer) Est GFR (Non-Af Amer) POC Glucose (mg/dL) 361 H 114 H 212 H Random Glucose Calcium Total Bilirubin AST ALT Alkaline Phosphatase Total Protein Albumin Globulin Albumin/Globulin Ratio 03/08/18 03/08/18 03/08/18 05:29 06:45 06:45 WBC 8.6 D RBC 3.94 Hgb 11.3 L Hct 37.2 MCV 94.4 MCH 28.7 MCHC 30.4 L RDW 15.0 H Plt Count 214 MPV 11.7 H Sodium 139 Potassium 4.6 Chloride 98 Carbon Dioxide 37 H Anion Gap 9 L BUN 44 H Creatinine 0.8 Est GFR ( Amer) > 60 Est GFR (Non-Af Amer) > 60 POC Glucose (mg/dL) 220 H Random Glucose 220 H Calcium 9.5 Total Bilirubin 0.2 AST 39 H ALT 27 Alkaline Phosphatase 44 Total Protein 5.7 L Albumin 3.1 Globulin 2.6 Albumin/Globulin Ratio 1.2 03/08/18 11:13 WBC RBC Hgb Hct MCV MCH MCHC RDW Plt Count MPV Sodium Potassium Chloride Carbon Dioxide Anion Gap BUN Creatinine Est GFR ( Amer) Est GFR (Non-Af Amer) POC Glucose (mg/dL) 77 Random Glucose Calcium Total Bilirubin AST ALT Alkaline Phosphatase Total Protein Albumin Globulin Albumin/Globulin Ratio Assessment & Plan (1) Acute otitis media with effusion of both ears Status: Acute (2) Acute ethmoidal sinusitis Status: Acute (3) Conductive hearing loss of both ears Status: Acute (4) COPD exacerbation Status: Acute Priority: Medium (5) Community acquired bacterial pneumonia Status: Acute Priority: Medium (6) Fall Status: Acute Priority: High (7) Generalized weakness Status: Acute (8) Inability to ambulate due to knee Status: Acute (9) COPD (chronic obstructive pulmonary disease) Status: Chronic Priority: Medium (10) Diabetes Status: Chronic Priority: Medium (11) Hypertension Status: Chronic Priority: Medium (12) Hypothyroidism Status: Chronic Priority: Medium (13) Myotonic dystrophy, type 1 Status: Chronic Priority: Medium (14) Rectal cancer Status: Chronic Priority: High (15) Uncontrolled diabetes mellitus Status: Chronic Priority: High (16) CO2 retention Status: Resolved Priority: High (17) Hypoglycemia due to insulin Status: Resolved - Assessment and Plan (Free Text) Plan: continue abx management per infectious disease for both lung and sinus infection. Add ocean saline and flonase spray. F/u as out patient. - Date & Time Date: 03/08/18 Time: 17:04
[2018-03-09] MEDS: Albuterol-Ipratrop 3 mg / 0.5 (3 ml) UD IH SCH ×4 (01:58→21:35)
[2018-03-09] MEDS: Acetylcysteine 20% Inhal Soln (4ml) IH SCH ×4 (01:58→21:35)
[2018-03-09] MEDS: MethylPREDNISolone 40 mg Vial IVP SCH ×3 (05:28→21:34)
[2018-03-09] MEDS: Enoxaparin 40 mg Syringe SC SCH (05:59)
[2018-03-09] MEDS: Levothyroxine 75 MCG TAB PO SCH (06:00)
[2018-03-09] MEDS: Insulin Reg-HIGH-Coverage SC SCH ×5 (06:03→21:28)
[2018-03-09] MEDS: Insulin Lispro 1 UNITS/0.01 ML SC SCH ×2 (07:30→17:23)
[2018-03-09] MEDS: Fluticasone Nasal 50 mcg/Spray NS SCH (10:21)
--- NOTE | 2018-03-09 11:35 | PN ---
Copied To: Dallin Glynn MD Attending MD: Dallin Glynn MD DATE: 03/09/2018 SUBJECTIVE: The patient seen in room 327. No fevers and chills. PHYSICAL EXAMINATION: VITAL SIGNS: Temperature is 98, blood pressure is 102/40, respiratory rate of 18. HEENT: Examination of HEENT is unremarkable. NECK: Supple. LUNGS: Have decreased breath sounds. HEART: Normal S1 and S2. ABDOMEN: Soft. LABORATORY DATA: Reveals a white count of 8.6, hemoglobin 11, platelets of 214. Chemistries reveals a BUN of 44, creatinine of 0.4. Microbiology is noted. ASSESSMENT AND PLAN: This is a 58-year-old female seen earlier this morning in transitional care, status post acute bronchitis, asymptomatic bacteriuria, history of sepsis, history of renal cancer status post resection and tracheostomy and percutaneous endoscopic gastrostomy tube placement, completed a course of Levaquin. Currently, review of orders reveals the patient is off of antibiotics, afebrile and the patient is at risk for developing nosocomial infections. The patient is also on Solu-Medrol at this point. We will discuss with Dr. Leyva. Dallin Glynn MD
--- NOTE | 2018-03-09 17:50 | PN ---
Copied To: Tom Contreras DO Attending MD: Tom Contreras DO DATE: 03/09/2018 SUBJECTIVE: I saw her in bed, she is still with congestion in the lungs. It is improving, but I do not think she is ready to be discharged today and she is still on the Solu-Medrol. I think she needs a few more days. She is on acetylcysteine, Colace, DuoNeb, Flonase, insulin, Januvia, Lasix, Levemir, Lovenox, promethazine, Solu-Medrol 20 b.i.d., Synthroid, and Tricor. I will suppose she will be a little bit better further along, I think her myotonic dystrophy is slowing down the situation and she is also refusing the suction and the BiPAP. She is better, but not enough, may be few more days of Solu-Medrol medications will solve this. She has COPD, debility, hypertension, diabetes, and myotonic dystrophy. PHYSICAL EXAMINATION: VITAL SIGNS: She has 96.6 temperature, 90 pulse, 102/43 blood pressure, and 94% O2 sat on 3 L. HEENT: Head is atraumatic, normocephalic. HEART: Regular rate. LUNGS: Decreased breath sounds, some congestion, changes with cough. ABDOMEN: Soft. EXTREMITIES: Weak, but no edema. LABORATORY DATA: Last labs on the were good. She has 94 blood sugar today, I will check her labs tomorrow. She is going to be in her Lasix, Solu-Medrol. We will check her potassium tomorrow and physical therapy will continue. I think Sunday, we will be able to discharge her. We will continue with Solu-Medrol. She is being seen by Ears, Nose, and Throat, Infectious Disease, Pulmonary. ENT came in to evaluate her ears. They added [place] spray and Flonase. We will continue with aggressive treatment and care Check her labs tomorrow. She is for Sunday. Tom Contreras DO [facility]
[2018-03-09] MEDS ORDERED: POLYETHYLENE GLYCOL 3350 17 GM/Dose PACKET PO STA (21:05)
[2018-03-09] MEDS: Insulin Detemir 100 units/ml Vial (Levemir) SC SCH (21:29)
[2018-03-10] MEDS: Albuterol-Ipratrop 3 mg / 0.5 (3 ml) UD IH SCH ×4 (02:35→19:48)
[2018-03-10] MEDS: Acetylcysteine 20% Inhal Soln (4ml) IH SCH ×4 (02:35→19:48)
[2018-03-10] MEDS: Enoxaparin 40 mg Syringe SC SCH (05:47)
[2018-03-10] MEDS: Levothyroxine 75 MCG TAB PO SCH (05:47)
[2018-03-10 06:50] LABS: HEMOGLOBIN 11.2 g/dL (12.0-16.0); MEAN CELL VOLUME 94.9 fl (80.0-105.0); MEAN CORPUSCULAR HEMOGLOBIN 28.4 pg (25.0-35.0); MEAN CORPUSCULAR HGB CONC 29.9 g/dl (31.0-37.0); MEAN PLATELET VOLUME 11.8 fl (7.0-11.0); RBC 3.94 10^6/uL (3.5-6.1); RED CELL DISTRIBUTION WIDTH 15.2 % (11.5-14.5); WHITE BLOOD COUNT 8.4 10^3/ul (4.5-11.0)
[2018-03-10] MEDS: Insulin Lispro 1 UNITS/0.01 ML SC SCH ×2 (06:55→17:11)
[2018-03-10] MEDS: Insulin Reg-HIGH-Coverage SC SCH ×4 (06:56→21:50)
[2018-03-10 07:44] LABS: ALB/GLOB RATIO 1.1 (1.1-1.8); ALT/SGPT 40 U/L (7-56); AST/SGOT 65 U/L (14-36); BLOOD UREA NITROGEN 49 mg/dL (7-21); CALCIUM 9.5 mg/dL (8.4-10.5); GFR AFRICAN-AMERICAN > 60; GFR NON-AFRICAN AMERICAN 57
[2018-03-10] MEDS: Fluticasone Nasal 50 mcg/Spray NS SCH (09:53)
[2018-03-10] MEDS: MethylPREDNISolone 40 mg Vial IVP SCH ×2 (09:55→21:54)
--- NOTE | 2018-03-10 14:27 | PN ---
Copied To: Dallin Glynn MD Attending MD: Dallin Glynn MD DATE: 03/10/2018 SUBJECTIVE: The patient is in bed, in no acute distress, nontoxic. PHYSICAL EXAMINATION: VITAL SIGNS: Temperature is 98, blood pressure is 92/63, respiratory rate of 28, heart rate of 90. HEENT: Unremarkable. NECK: Supple. LUNGS: Decreased breath sounds. HEART: Normal S1, S2. ABDOMEN: Soft, nontender. LABORATORY EXAMINATION: Reveals a white count of 8.4, hemoglobin of 11, and platelets of 226. BUN of 49, creatinine of 1. AST is 65. Microbiology is noted. Dr. Contreras's note is reviewed. ASSESSMENT AND PLAN: This is a 58-year-old female who was seen earlier today, status post acute bronchitis; asymptomatic bacteriuria; history of sepsis; history of renal cancer, status post resection; tracheostomy; and percutaneous endoscopic gastrostomy tube placement. Completed course of Levaquin, currently off antibiotics. The patient is at risk for developing nosocomial infections. The patient is on Solu-Medrol. We will follow with you. Dallin Glynn MD
[2018-03-10 17:58] VITALS: PULSE 92; RESP 20; TEMP 98.3; O2SAT 90
[2018-03-10] MEDS: Insulin Detemir 100 units/ml Vial (Levemir) SC SCH (21:55)
[2018-03-10] MEDS: Promethazine DM 6.25 mg-15 mg/5 ml Syrup PO PRN (22:14)
[2018-03-11] MEDS: Albuterol-Ipratrop 3 mg / 0.5 (3 ml) UD IH SCH ×4 (04:20→13:30)
[2018-03-11] MEDS: Acetylcysteine 20% Inhal Soln (4ml) IH SCH ×3 (04:20→13:30)
[2018-03-11] MEDS: Enoxaparin 40 mg Syringe SC SCH (06:30)
[2018-03-11] MEDS: Levothyroxine 75 MCG TAB PO SCH (06:30)
[2018-03-11 06:31] VITALS: BP 103/62
[2018-03-11] MEDS: Insulin Lispro 1 UNITS/0.01 ML SC SCH (06:54)
[2018-03-11] MEDS: Insulin Reg-HIGH-Coverage SC SCH ×2 (07:00→11:47)
[2018-03-11 07:18] LABS: HEMOGLOBIN 11.9 g/dL (12.0-16.0); MEAN CELL VOLUME 95.2 fl (80.0-105.0); MEAN CORPUSCULAR HEMOGLOBIN 28.8 pg (25.0-35.0); MEAN CORPUSCULAR HGB CONC 30.3 g/dl (31.0-37.0); MEAN PLATELET VOLUME 11.8 fl (7.0-11.0); RBC 4.13 10^6/uL (3.5-6.1); RED CELL DISTRIBUTION WIDTH 15.2 % (11.5-14.5); WHITE BLOOD COUNT 7.6 10^3/ul (4.5-11.0)
[2018-03-11 07:46] LABS: ALB/GLOB RATIO 1.1 (1.1-1.8); ALBUMIN 3.2 g/dL (3.0-4.8); ALT/SGPT 37 U/L (7-56); AST/SGOT 72 U/L (14-36); BLOOD UREA NITROGEN 52 mg/dL (7-21); CALCIUM 9.8 mg/dL (8.4-10.5); GFR AFRICAN-AMERICAN > 60; GFR NON-AFRICAN AMERICAN 57
--- NOTE | 2018-03-11 08:10 | PN ---
Copied To: Adam Leyva MD Attending MD: Adam Leyva MD DATE: 03/11/2018 PULMONARY NOTE SUBJECTIVE: The patient appears comfortable this morning. She is not short of breath at rest. PHYSICAL EXAMINATION: VITAL SIGNS: Last temperature recorded is 98.3, pulse this morning is 88, respiratory rate 18, blood pressure 103/62. Oxygen saturation on nasal cannula is 90-96%. HEENT: Normocephalic, atraumatic. No JVD. CARDIOVASCULAR: Positive S1, S2. No S3 gallop. LUNGS: Decreased breath sounds at the bases. Less crackles. Much less/minimal rhonchi. No wheezing. EXTREMITIES: Mild edema. No cyanosis. No clubbing. Calves are nontender to palpation. GI: Abdomen is soft, nontender and nondistended. Bowel sounds are positive. SKIN: No acute rash. NEUROLOGIC: Limited at the present time. IMPRESSION: 1. Acute bronchitis. 2. Chronic obstructive pulmonary disease. 3. Left basilar atelectasis versus pneumonia. 4. Advanced myotonic dystrophy. 5. Chronic respiratory insufficiency. PLAN: The patient appears comfortable this morning. She is not short of breath at rest. She does state to feeling much better overall. I did discuss the case with the night nurse at length. The night nurse stated that the patient had a pretty good night. However, the night nurse also informed me that the patient has refused her BiPAP the past few nights. She also continues to refuse suctioning. I did have a long talk again with the patient regarding these issues. She just looks at me and shrugs her shoulders. She does understand what I am saying. On physical exam, her bronchospasm continues to resolve. In addition, there is no significant alveolar-arterial gradient. I will continue with the current nebulizer treatments and change to oral steroids this morning. The patient is now off antibiotic therapy - as per Infectious Disease. Input by Dr. Glynn is noted. Clinical status of the patient is significantly improved - compared to her initial presentation. However, again, unfortunately, the future status/prognosis for this patient remains poor. All are aware. I will discuss the above with Dr. Contreras. Adam Leyva MD [facility] # [id number]
[2018-03-11] MEDS: Promethazine DM 6.25 mg-15 mg/5 ml Syrup PO PRN (08:13)
--- NOTE | 2018-03-11 09:11 | PN ---
Copied To: Tom Contreras DO Attending MD: Tom Contreras DO DATE: 03/10/2018 SUBJECTIVE: I saw her resting comfortably in bed. She ate her breakfast. She is in good spirits. She is smiling, it is best I had seen her. The plan is for her to go home tomorrow, Sunday. She is on acetylcysteine, Colace, DuoNeb, Flonase, insulin, Januvia, Lasix, Levemir, Lovenox, [place] spray, Phenergan, Solu-Medrol 20 mg b.i.d. actually helped her a great deal to have these few extra days, Synthroid, TriCor. PHYSICAL EXAMINATION: GENERAL: She is alert and smiling. VITAL SIGNS: She has a 98.3 temp, 90 pulse, 93/63 blood pressure, 20 respiratory rate, 95% O2 sat on nasal cannula. HEENT: Head is atraumatic, normocephalic. Throat is moist. NECK: Supple. HEART: Regular rate. LUNGS: Decreased breath sounds, but clear. First day in the week, I did not hear any crackles, congestion, rhonchi or anything in the lungs. ABDOMEN: Soft. EXTREMITIES: No edema. I think it is perfect timing for her to be discharged tomorrow. I will keep her on IV Solu-Medrol till tomorrow and then we will put her on prednisone. LABORATORY DATA: She has 8.4 white count, 11.2 hemoglobin, 37.4 hematocrit with 226 platelets. Sodium 139, potassium 4.6, BUN 49, creatinine 1, GFR is 57, sugar is 285 on the steroids, calcium is 9.5, total bili is 0.4, AST is 65, ALT is 40, alkaline phosphatase 47, total protein is 5.8. She is being seen by Infectious Disease and Pulmonary and Ears, Nose and Throat. She has an ear issue, which seem to have been resolved. She is here for COPD. She has myotonic dystrophy, hypertension, diabetes, hypothyroid and debility and I do think she is best I have seen her. We are going to check her labs tomorrow. I encouraged her to get out of bed to chair, to do the physical therapy. She refused to have suctioning and the BiPAP, which she does not want to do it so it is not helping us. We will check her labs tomorrow morning and I have plans to discharge her home on prednisone. Tom Contreras DO
[2018-03-11] MEDS: Fluticasone Nasal 50 mcg/Spray NS SCH (09:26)
--- NOTE | 2018-03-11 14:19 | CP.PCM.PN ---
Subjective - Date & Time of Evaluation Date of Evaluation: 03/11/18 Time of Evaluation: 12:20 - Subjective Subjective: Patient is going home today, no fevers, not in distress, no diarrhea, SOB at rest. Objective - Vital Signs/Intake and Output Vital Signs (last 24 hours): Temp Pulse Resp BP Pulse Ox 98.3 F 92 H 20 103/62 90 L 03/10/18 17:00 03/10/18 17:00 03/10/18 17:00 03/11/18 06:29 03/10/18 17:00 - Medications Medications: Current Medications Acetylcysteine (Acetylcysteine 20%) 4 ml IH [id number] GABE PRN Reason: Protocol Last Admin: 03/11/18 13:30 Dose: 4 ml Albuterol/Ipratropium (Duoneb 3 Mg/0.5 Mg (3 Ml) Ud) 3 ml IH Q2H PRN; Protocol PRN Reason: Shortness of Breath Albuterol/Ipratropium (Duoneb 3 Mg/0.5 Mg (3 Ml) Ud) 3 ml IH [id number] PRN Reason: Protocol Last Admin: 03/11/18 13:30 Dose: 3 ml Docusate Sodium (Colace) 100 mg PO DAILY GABE PRN Reason: Protocol Last Admin: 03/11/18 09:26 Dose: 100 mg Enoxaparin Sodium (Lovenox) 40 mg SC 0600 GABE PRN Reason: Protocol Last Admin: 03/11/18 06:30 Dose: 40 mg Fenofibrate (Tricor) 145 mg PO DAILY GABE PRN Reason: Protocol Last Admin: 03/11/18 09:26 Dose: 145 mg Fluticasone Propionate (Flonase) 2 actuation NS DAILY [facility] Last Admin: 03/11/18 09:26 Dose: 2 actuation Furosemide (Lasix) 20 mg PO 0600 AGB[facility] PRN Reason: Protocol Last Admin: 03/11/18 06:29 Dose: 20 mg Insulin Detemir (Levemir) 20 unit SC HS GABE PRN Reason: Protocol Last Admin: 03/10/18 21:55 Dose: 20 unit Insulin Human Lispro (Humalog) 10 units SC 0730,1630 GABE PRN Reason: Protocol Last Admin: 03/11/18 06:54 Dose: Not Given Insulin Human Regular (Humulin R High) 0 units SC ACHS GABE PRN Reason: Protocol Last Admin: 03/11/18 11:47 Dose: 2 unit Levothyroxine Sodium (Synthroid) 75 mcg PO 0600 [facility]E PRN Reason: Protocol Last Admin: 03/11/18 06:30 Dose: 75 mcg Prednisone (Prednisone Tab) 30 mg PO DAILY [facility] Last Admin: 03/11/18 09:26 Dose: 30 mg Promethazine HCl/Dextromethorphan (Phenergan Dm Syrup) 5 ml PO Q6H PRN; Protocol PRN Reason: Cough Stop: 03/18/18 18:16 Last Admin: 03/11/18 08:13 Dose: 5 ml Sitagliptin Phosphate (Januvia) 100 mg PO DAILY GABE PRN Reason: Protocol Last Admin: 03/11/18 09:26 Dose: 100 mg Sodium Chloride ([place] Nasal [place]) 0 ml NS QID [facility] Last Admin: 03/11/18 13:06 Dose: Not Given - Labs Labs: 03/11/18 06:45 03/11/18 06:45 - Constitutional Appears: Chronically Ill - Head Exam Head Exam: NORMAL INSPECTION - Neck Exam Neck Exam: absent: Meningismus - Respiratory Exam Respiratory Exam: Decreased Breath Sounds - Cardiovascular Exam Cardiovascular Exam: +S1, +S2 - GI/Abdominal Exam GI & Abdominal Exam: Soft. absent: Tenderness Assessment and Plan - Assessment and Plan (Free Text) Plan: Assessment S/P acute bronchitis asymptomatic bacteriuria with gram negative bacilli history of sepsis secondary to E. coli urinary tract infection, bilateral healthcare-associated pneumonia history of myotonic dystrophy hypothyroidism history of tracheostomy and PEG tube placement S/P ileostomy Anal cancer S/P resection Plan completed course of Levaquin - continue to monitor off antibiotics
--- NOTE | 2018-03-12 08:34 | DS ---
Copied To: Tom Contreras DO Attending MD: Tom Contreras DO HISTORY OF PRESENT ILLNESS: She is being discharged from the TCU. She is finally doing much better and she is ready to go home. She is on acetylcysteine, Colace, DuoNeb, Flonase, insulin, Januvia, Lasix, Levemir, [place] spray, Phenergan DM; she will be on prednisone 30 for three days, 20 for three days, 10 for three days, then stop; Synthroid and TriCor. Pharmacy called me today to go over the medications that she needs, especially the prednisone. PHYSICAL EXAMINATION: VITAL SIGNS: She has a 98.3 temp, 92 pulse, 103/62 blood pressure, 20 respiratory rate, and 92% O2 sat on nasal cannula 2 liters. HEENT: Head is atraumatic, normocephalic. My biggest problem with her that she refuses the BiPAP and the suctioning, which is a problem for people of myotonic dystrophy, and it could help greatly, but she chooses not to do it. HEART: Regular rate. LUNGS: Decreased breath sounds, but clear. No wheezes, no rhonchi, no rales, which is great. ABDOMEN: Soft and nontender. Positive bowel sounds. EXTREMITIES: No edema. She is still weak from the myotonic dystrophy, but improved with the therapy in TCU. LABORATORY DATA: She has 7.6 white count, 11.9 hemoglobin, 39.3 hematocrit with 238 platelets. Sodium 143, potassium is 4.3, BUN 52, creatinine 1, GFR is 57, sugar is 151, calcium is 9.8, total bilirubin is 0.2. AST is 72, ALT is 37, alkaline phosphatase 53, total protein 6.1, albumin is 3.2. ASSESSMENT AND PLAN: She will be discharged today. She had severe chronic obstructive pulmonary disease, myotonic dystrophy, debility, hypertension, diabetes, hypothyroid, and I will see her next week and she is being discharged Pharmacy called me. Tom Contreras DO MTDD
== END 2018-03-11 16:21 | disposition home health service (06) | DRG 945 ==
LOC: TRCU 17:49
PROVIDERS: ADMIT Family Medicine; ATTEND Family Medicine
PROC: 3E0F7GC Introduction of Other Therapeutic Substance into Respiratory Tract, Via Natural or Artificial Opening (ICD-10-PCS; 2018-03-04)
PROC: F07Z9FZ Gait Training/Functional Ambulation Treatment using Assistive, Adaptive, Supportive or Protective Equipment (ICD-10-PCS; principal; 2018-03-05)
PROC: F08Z4FZ Home Management Treatment using Assistive, Adaptive, Supportive or Protective Equipment (ICD-10-PCS; 2018-03-05)
PROC: 5A09457 Assistance with Respiratory Ventilation, 24-96 Consecutive Hours, Continuous Positive Airway Pressure (ICD-10-PCS; 2018-03-05)
DX: R53.1 Weakness (principal); J44.1 Chronic obstructive pulmonary disease with (acute) exacerbation; N39.0 Urinary tract infection, site not specified; J98.11 Atelectasis; J44.0 Chronic obstructive pulmonary disease with (acute) lower respiratory infection; G71.11 Myotonic muscular dystrophy; I10 Essential (primary) hypertension; E03.9 Hypothyroidism, unspecified; R53.81 Other malaise; E11.9 Type 2 diabetes mellitus without complications; D64.9 Anemia, unspecified; B96.20 Unspecified Escherichia coli [E. coli] as the cause of diseases classified elsewhere; J20.9 Acute bronchitis, unspecified; H66.93 Otitis media, unspecified, bilateral; J01.20 Acute ethmoidal sinusitis, unspecified; H90.0 Conductive hearing loss, bilateral; Z85.048 Personal history of other malignant neoplasm of rectum, rectosigmoid junction, and anus; Z92.21 Personal history of antineoplastic chemotherapy; Z88.0 Allergy status to penicillin

== ENCOUNTER 2018-03-18 09:55 | Inpatient (IN) | payer MEDICARE, MEDICAID ==
[2018-03-18] MEDS ORDERED: Sodium Chloride 0.9% 2,000 ML IV STA (10:04)
--- NOTE | 2018-03-18 10:16 | EDPD ---
Arrival/HPI - General Chief Complaint: Shortness Of Breath Time Seen by Provider: 03/18/18 10:00 Historian: EMS - Critical Care Critical Care Minutes: 60 minutes Critical Care Time: Unstable - History of Present Illness Narrative History of Present Illness (Text): 03/18/18 10:10 A 58 year old female, whose past medical history include hypertension, hypothyroidism, myotonic dystrophy, COPD and diabetes, presents to the emergency department via EMS intubated, secondary to shortness of breath complain. Patient's nurse called EMS for her at home. EMS reports patient had a blood glucose level of 400 mg/dL. In route to emergency department, EMS reports patient became hypoxic, and was intubated. History limited secondary to patient intubation and paralysis. PMD: Dr. Purdy Time/Duration: Prior to Arrival Symptom Onset: Gradual Symptom Course: Unchanged Activities at Onset: Light Context: Home Past Medical History - Provider Review Nursing Documentation Reviewed: Yes - Travel History Have you traveled outside of the [place] within the last 3 mons?: No - Immunization Tetanus Immunization: Unknown - Infectious Disease Hx of Infectious Diseases: None - Psychiatric History Hx Physical Abuse: No Hx Emotional Abuse: No Hx Depression: No - Reproductive Currently Lactating: No - Suicidal Assessment Feels Threatened at Home: No Family/Social History - Physician Review Nursing Documentation Reviewed: Yes Family/Social History: No Known Family HX Smoking Status: Never Smoked Hx Alcohol Use: No Hx Substance Use: No Hx Substance Use Treatment: No Allergies/Home Meds Allergies/Adverse Reactions: Allergies Penicillins Allergy (Severe, Verified 03/18/18 09:58) ANGIOEDEMA Home Medications: Home Meds Medication Instructions Recorded Confirmed Potassium Chloride [K-Dur 20 mEq 10 meq PO MWF 11/22/17 03/05/18 ER Tab] Pediatric Review of Systems - Review of Systems Systems not reviewed;Unavailable: Intubated Pediatric Physical Exam - Physical Exam Narrative Physical Exam (Text): 03/18/18 10:32 Gen: Unresponsive due to sedation and paralysis. ENT: endotracheal tube in place Eye: Limited secondary to condition. Neck: no JVD, supple, no adenopathy. CV: tachycardic, regular rhythm, echo sounds bilaterally. Pulm: Mild coarse breathing, no wheeze. Abd: soft, non-distended. Ext: no edema. Skin: good color, no rash, no cyanosis. Psych: Limited secondary to condition. Neuro: Limited secondary to condition. Physical Exam Limitations: Clinical Condition Vital Signs Temp Pulse Resp BP Pulse Ox 03/18/18 10:40 98.7 F 98 H 18 93/53 L 94 L 03/18/18 10:07 18 98 Pulse: Tachycardic Appearance: Positive for: Non-Toxic, Comfortable, Happy, Playful Medical Decision Making ED Course and Treatment: 03/18/18 10:17 Impression: 58 year old female presents to the emergency department intubated, secondary to shortness of breath complaint. Plan: -- Labs -- EKGasm -- Chest X-ray -- Vent -- Urinalysis -- Reassess and disposition Prior Visits: Notes and results from previous visits were reviewed. Progress Notes: 03/18/18 11:[address] mahmood, patient to be admitted for hypoxic respiratory failure, uti, septic shock. patient was intubated en route to the hospital for hypoxic (O2 sat in the 70's) and resp distress not responding to bronchodilators. Patient arrived in the ED unresponsive and paralyzed. Urine is purulent with a presumed source of infection for septic shock. Empiric iv abx and IV were initiated. Patient to be admitted to the ICU. 03/18/18 11:[address] 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 - Lab Interpretations Lab Results: 03/18/18 10:00 03/18/18 10:00 Lab Results 03/18/18 10:50: pCO2 34 L, pO2 47.0 L, HCO3 28.4 H, ABG pH 7.53 H, ABG Total CO2 29.4 H, ABG O2 Saturation 88.9 L, ABG O2 Content 16.0, ABG Base Excess 5.7 H , ABG Hemoglobin 13.0, ABG Carboxyhemoglobin 0.9, POC ABG HHb (Measured) 10.9 H , ABG Methemoglobin 0.6, ABG O2 Capacity 18.0, Hgb O2 Saturation 87.7 L, FiO2 40.0 03/18/18 10:48: Urine Color Yellow, Urine Appearance Sl cloudy, Urine pH 5.5, Ur Specific [place] 1.025, Urine Protein Negative, Urine Glucose (UA) Negative, Urine Ketones Negative, Urine Blood Negative, Urine Nitrate Negative, Urine Bilirubin Negative, Urine Urobilinogen 0.2, Ur Leukocyte Esterase Moderate H, Urine RBC Pending, Urine WBC Pending 03/18/18 10:15: PT 13.1 H, INR 1.14, APTT 23.7 L 03/18/18 10:00: TSH 3rd Generation 1.85 03/18/18 10:00: Sodium 144, Potassium 3.1 L, Chloride 101, Carbon Dioxide 28, Anion Gap 18, BUN 44 H, Creatinine 0.8, Est GFR ( Amer) > 60, Est GFR ( Non-Af Amer) > 60, Random Glucose 524 H* D, Calcium 7.2 L, Phosphorus 2.2 L, Magnesium 1.5 L, Total Bilirubin 0.6, AST 33, ALT 29, Alkaline Phosphatase 83, Troponin I < 0.01, Total Protein 4.8 L, Albumin 2.5 L, Globulin 2.4, Albumin/ Globulin Ratio 1.0 L, Lipase 13 L 03/18/18 10:00: WBC 18.7 H D, RBC 4.63, Hgb 13.6, Hct 44.5, MCV 96.1, MCH 29.4, MCHC 30.6 L, RDW 14.9 H, Plt Count 310, MPV 13.3 H, Gran % 87.7 H, Lymph % (Auto ) 10.2 L, [place] % (Auto) 1.9, Eos % (Auto) 0.1 L, Baso % (Auto) 0.1, Gran # 16.41 H, Lymph # (Auto) 1.9, [place] # (Auto) 0.4, Eos # (Auto) 0.0, Baso # (Auto) 0.02 - RAD Interpretation Narrative RAD Interpretations (Text): 03/18/18 10:10 Chest X-ray reviewed by me, shows: Elevated hemidiaphragm , left pleural effusion. No focal infiltrate, no pneumothorax. Radiology Orders: 03/18/18 10:01 CHEST PORTABLE [RAD] Stat 03/18/18 10:26 ANGIO CHEST PE PROTOCOL [CT] Stat Animation Director: ED Physician - EKG Interpretation EKG Interpretation (Text): 03/18/18 10:05 EKG shows NSR at 105 BPM with normal QRS, anterior and lateral infarct, nonspecific T wave abnormality. Interpreted by me. Interpreted by ED Physician: Yes Type: 12 lead EKG - Medication Orders Current Medication Orders: Dextrose (Dextrose 50% Inj) 0 ml IV STAT PRN; Protocol PRN Reason: Hypoglycemia Protocol Sodium Chloride (Sodium Chloride 0.9%) 2,000 mls @ 999 mls/hr IV .Q2H1M STA Stop: 03/18/18 12:04 Last Admin: 03/18/18 10:51 Dose: 999 mls/hr eMAR Start Stop Document 03/18/18 10:51 [email or web address] (Rec: 03/18/18 10:51 [email or web address] [id number]) Intravenous Solution Start Date 03/18/18 Start Time 10:51 Aztreonam (Azactam 1 Gm) 100 mls @ 100 mls/hr IVPB STAT STA PRN Reason: Protocol Stop: 03/18/18 11:40 Vancomycin HCl (Vancomycin 1gm) 1 gm in 250 mls @ 167 mls/hr IVPB STAT STA Stop: 03/18/18 12:14 Last Admin: 03/18/18 10:52 Dose: 167 mls/hr eMAR Start Stop Document 03/18/18 10:52 [email or web address] (Rec: 03/18/18 10:52 [email or web address] [id number]) Intravenous Solution Start Date 03/18/18 Start Time 10:52 Dextrose (Dextrose 5% In Water 1000 Ml) 1,000 mls @ 0 mls/hr IV .Q0M PRN; Protocol; Per Protocol PRN Reason: Hypoglycemia Protocol Magnesium 2 gm/50 ml NS (Magnesium Sulfate 2 Gm/50 Ml Ns) 2 gm in 50 mls @ 50 mls/hr IVPB ONCE ONE Stop: 03/18/18 12:20 Potassium Chloride (Potassium Chloride 20 Meq/100 Ml) 20 meq in 100 mls @ 50 mls/hr IVPB Q2H GABE Stop: 03/18/18 15:29 Potassium Chloride (Potassium Chloride 10 Meq/100 Ml) 10 meq in 100 mls @ 50 mls/hr IVPB ONCE ONE Stop: 03/18/18 13:23 Discontinued Medications Insulin Human Regular (Humulin R) 10 units IVP STAT STA Stop: 03/18/18 11:23 - Scribe Statement The provider has reviewed the documentation as recorded by the Scribe Venancio Wen All medical record entries made by the Scribe were at my direction and personally dictated by me. I have reviewed the chart and agree that the record accurately reflects my personal performance of the history, physical exam, medical decision making, and the department course for this patient. I have also personally directed, reviewed, and agree with the discharge instructions and disposition. Disposition/Present on Arrival - Present on Arrival Any Indicators Present on Arrival: No History of DVT/PE: No History of Uncontrolled Diabetes: No Urinary Catheter: No History of Decub. Ulcer: No History Surgical Site Infection Following: None - Disposition Have Diagnosis and Disposition been Completed?: Yes Diagnosis: Acute respiratory failure with hypoxia, Septic shock Disposition: HOSPITALIZED Disposition Time: 11:20 Patient Plan: ICU Patient Problems: Current Active Problems Problem Status Onset Acute respiratory failure with hypoxia Acute Septic shock Acute Condition: CRITICAL Referrals: Tom Mahmood DO [Primary Care Provider] - Follow up with primary Forms: [employer] (Malaysian)
[2018-03-18 10:31] LABS: BASO # 0.02 K/mm3 (0.0-2.0); BASO % 0.1 % (0.0-3.0); EOS % 0.1 % (1.5-5.0); GRAN # 16.41 (1.4-6.5); GRAN % 87.7 % (50.0-68.0); HEMOGLOBIN 13.6 g/dL (12.0-16.0); LYMPH # 1.9 (1.2-3.4); LYMPH % 10.2 % (22.0-35.0); MEAN CELL VOLUME 96.1 fl (80.0-105.0); MEAN CORPUSCULAR HEMOGLOBIN 29.4 pg (25.0-35.0); MEAN CORPUSCULAR HGB CONC 30.6 g/dl (31.0-37.0); MEAN PLATELET VOLUME 13.3 fl (7.0-11.0); MONO # 0.4 (0.1-0.6); MONO % 1.9 % (1.0-6.0); RBC 4.63 10^6/uL (3.5-6.1); RED CELL DISTRIBUTION WIDTH 14.9 % (11.5-14.5); WHITE BLOOD COUNT 18.7 10^3/ul (4.5-11.0)
[2018-03-18 10:39] LABS: INR 1.14; PARTIAL THROMBOPLASTIN TIME 23.7 Seconds (25.1-36.5); PROTHROMBIN TIME 13.1 SECONDS (9.4-12.5)
[2018-03-18] MEDS ORDERED: Vancomycin 500 mg Inj IVPB STA (10:40)
[2018-03-18] MEDS ORDERED: Aztreonam 1 Gm in NS 100mL 100 ML IVPB STA (10:41)
[2018-03-18] MEDS ORDERED: Vancomycin 1gm in NS 250ml 1 GM/250 ML BAG IVPB STA (10:45)
[2018-03-18 11:00] LABS: ALBUMIN 2.5 g/dL (3.0-4.8); ALT/SGPT 29 U/L (7-56); AST/SGOT 33 U/L (14-36); BLOOD UREA NITROGEN 44 mg/dL (7-21); CALCIUM 7.2 mg/dL (8.4-10.5); GFR AFRICAN-AMERICAN > 60; GFR NON-AFRICAN AMERICAN > 60; LIPASE 13 U/L (23-300)
[2018-03-18 11:02] LABS: TROPONIN I < 0.01 ng/mL
[2018-03-18 11:04] LABS: PH,URINE 5.5 (4.7-8.0); URINE BILIRUBIN NEGATIVE (NEGATIVE); URINE BLOOD NEGATIVE (NEGATIVE); URINE GLUCOSE (UA) NEGATIVE (NEGATIVE); URINE LEUKOCYTE ESTERASE MODERATE Leu/uL (NEGATIVE); URINE PROTEIN NEGATIVE mg/dL (<30 mg/dL); URINE UROBILINOGEN 0.2 E.U./dL (<1 E.U./dL)
[2018-03-18 11:06] LABS: ARTERIAL BLOOD GAS HCO3 28.4 mmol/L (21-28); ARTERIAL BLOOD GAS O2 SAT 88.9 % (95-98); ARTERIAL BLOOD GAS PCO2 34 mm/Hg (35-45); ARTERIAL BLOOD GAS PH 7.53 (7.35-7.45); ARTERIAL BLOOD GAS TCO2 29.4 mmol.L (22-28)
[2018-03-18 11:09] LABS: URINE APPEARANCE SL CLOUDY (CLEAR); URINE COLOR YELLOW (YELLOW)
[2018-03-18] MEDS ORDERED: Magnesium 2 gm/50 ml NS 2 GM/50 ML BAG IVPB ONE (11:21)
[2018-03-18] MEDS ORDERED: Insulin Regular 1 UNITS/0.01 ML ML IVP STA (11:22)
[2018-03-18 11:27] LABS: VENOUS BLOOD GAS BASE EXCESS 8.8 mmol/L (0.0-2.0); VENOUS BLOOD GAS PO2 190 mm/Hg (30-55); VENOUS BLOOD PH 7.35 (7.32-7.43)
--- NOTE | 2018-03-18 11:27 | RAD ---
Date of service: 03/18/2018 HISTORY: intubation, resp failure COMPARISON: 03/01/2018 FINDINGS: LUNGS: No active pulmonary disease. The endotracheal tube is in satisfactory position PLEURA: There is elevation of the right hemidiaphragm. There is blunting of the costophrenic angles. CARDIOVASCULAR: Normal. OSSEOUS STRUCTURES: No significant abnormalities. VISUALIZED UPPER ABDOMEN: Normal. OTHER FINDINGS: None. IMPRESSION: The endotracheal tube is in satisfactory position
[2018-03-18] MEDS ORDERED: Iodixanol 320 MG/ML 100 ML BOTTLE IV ONE (11:31)
[2018-03-18 11:33] LABS: URINE BACTERIA LARGE (NEG); URINE WBC 20 - 25 /hpf (0-6)
[2018-03-18] MEDS ORDERED: Midazolam 2 MG/2 ML VIAL IVP ONE (11:58)
[2018-03-18] MEDS ORDERED: Midazolam 2 MG/2 ML VIAL ONE (11:59)
[2018-03-18] MEDS ORDERED: Albuterol 0.083% Inhal Sol (2.5 mg/3 mL) UD ONE (12:30)
[2018-03-18] MEDS ORDERED: Amiodarone 360 mg/D5W 200 ml 360 MG/200 ML BAG IV ONE (12:31)
[2018-03-18] MEDS ORDERED: EPINEPHrine- 1 MG in Sodium Chloride 0.9% 50 ML IV PRN (12:39)
--- NOTE | 2018-03-18 13:02 | PCM.RRT ---
GALLERY OR MUSEUM TECHNICIAN Nurse Assessment - Situation Date: 03/18/18 Time GALLERY OR MUSEUM TECHNICIAN was called: 12:12 GALLERY OR MUSEUM TECHNICIAN Responder Arrival Time: 12:13 GALLERY OR MUSEUM TECHNICIAN Location:: CT Room Number: CT Room GALLERY OR MUSEUM TECHNICIAN Reason for Call: Looks Sicker (Asystole) GALLERY OR MUSEUM TECHNICIAN Called By: RN, Other Disciplines - Respiratory Oxygen Delivery Method: Intubated Received Nebulizer Treatments:: No Was the Patient Ventilated with Bag/Mask 100% O2?: Yes Secretions Suctioned?: No Was the Patient Intubated?: No (Already intubated) Was the Patient Placed on a Ventilator?: No CPR started during GALLERY OR MUSEUM TECHNICIAN?: Yes - [place] Coma Scale Coma Scale Eye Opening: No response Coma Scale Motor: None Coma Scale Verbal: No response - Recommendations 5) GALLERY OR MUSEUM TECHNICIAN Level of Care Recommendations: Transfer to ICU Notifications: Attending Physician I.Reason for GALLERY OR MUSEUM TECHNICIAN - A) Acute Change in Patient: Subjective: Cinthia Platt Note Patient was brought to ED via EMS and intubated in the field for respiratory distress/failure. Code sepsis was also called. Patient was undergoing CTA to r/ o pulmonary embolism. Patient was in CT room when she went into asystole. Cinthia platt was called at 12:12 pm. ACLS was initiated. Several rounds of compressions and epinephrine were administered with pulse checks every 2 minutes. After several rounds of compressions, pulse was achieved, SBP in the 110's, and ventricular tachycardia was found on monitor. Patient was defibrillated at 300 joules and ROSC was achieved. Patient was escorted to the ICU and signed out to ICU team. - Neurological Status (Select all that apply): absent: Alert, Responsive, Oriented, Verbal, Follows Commands - Respiratory Oxygen Delivery Method: Intubated - Constitutional Appears: In Acute Distress, Other (pale, unresponsive) - Head Head Exam: NORMAL INSPECTION - Eyes Eye Exam: absent: EOMI, PERRL - Respiratory Exam Additional comments: Intubated, breath sounds per bag mask - Cardiovascular Exam Cardiovascular Exam: absent: Gallop, RRR, Rubs, Murmur - GI/Abdominal Exam GI & Abdominal Exam: Soft - Neurological Exam Neurological Exam: absent: Alert, Awake, Oriented x3 Plan - Assessment of Findings&Treatment Plan 58 yo F in asystole, ACLS initiated with ROSC after compressions, epinephrine, and defibrillation. Patient transferred to ICU for further management.
[2018-03-18] MEDS ORDERED: Sodium Chloride 0.9% 1,000 ML IV STA (13:05)
[2018-03-18] MEDS ORDERED: Amiodarone 360 mg/D5W 200 ml 360 MG/200 ML BAG IV SCH (13:15)
[2018-03-18] MEDS: NOREPINEPHRINE BIT/0.9 % NACL 4 MG/250 ML BAG IV PRN ×2 (13:15→20:00)
--- NOTE | 2018-03-18 13:17 | CARD ---
APPROVED REPORT Date of service: 03/18/2018 EKG Measurement Heart [id number] [id number] [id number] <Conclusion> Sinus tachycardia Right axis deviation Possible Anterior infarct, age undetermined Abnormal ECG
[2018-03-18] MEDS ORDERED: Albuterol-Ipratrop 3 mg / 0.5 (3 ml) UD IH PRN (13:59)
[2018-03-18] MEDS ORDERED: Sodium Chloride 0.9% 1,000 ML IV SCH (14:00)
[2018-03-18] MEDS: Aztreonam 1 Gm in NS 100mL 100 ML IVPB SCH ×2 (14:00→21:14)
[2018-03-18] MEDS ORDERED: Propofol 10 mg/ml 1,000 MG/100 ML VIAL IV PRN (14:23)
--- NOTE | 2018-03-18 14:24 | PCM.SEPTIC ---
Sepsis Progress Note - Reassessment Type Date of Evaluation: 03/18/18 Time of Evaluation: 14:23 Reassessment Type: Non-invasive reassessment - Non Invasive Reassessment Were the most recent vital sign reviewed: Yes Vital Sign (Latest): Temp Pulse Resp BP Pulse Ox 98.4 F 98 H 18 117/46 L 94 L 03/18/18 10:30 03/18/18 12:56 03/18/18 11:00 03/18/18 12:40 03/18/18 11:00 Cardiovascular: Yes: Regular Rate, Rhythm (Distant heart sounds) Respiratory: Yes: Rales, Rhonchi, Other (Intubated on vent) Capillary Refill: Delayed Pulses: Decreased Radial, Decreased Dorsalis Pedis Skin: Dry, Pale
[2018-03-18] MEDS ORDERED: Insulin Reg-MEDIUM-Coverage SC SCH (14:45)
--- NOTE | 2018-03-18 14:49 | RAD ---
Date of service: 03/18/2018 HISTORY: central line placement COMPARISON: No prior. FINDINGS: LUNGS: There is a right IJ line that terminates in the SVC at the junction with right atrium. There is no pneumothorax PLEURA: Small pleural effusions CARDIOVASCULAR: Normal. OSSEOUS STRUCTURES: No significant abnormalities. VISUALIZED UPPER ABDOMEN: Normal. OTHER FINDINGS: None. IMPRESSION: There is a right IJ line that terminates in the SVC at the junction with right atrium. There is no pneumothorax
[2018-03-18 14:57] LABS: ARTERIAL BLOOD GAS HCO3 19.8 mmol/L (21-28); ARTERIAL BLOOD GAS O2 SAT 98.4 % (95-98); ARTERIAL BLOOD GAS PCO2 32 mm/Hg (35-45); ARTERIAL BLOOD GAS TCO2 20.8 mmol.L (22-28)
--- NOTE | 2018-03-18 14:57 | PCM.PROC ---
Procedures Attestation:: I certify that I have explained the specified Operation(s) or Procedure(s), risks, benefits and reasonable alternatives to the Patient and/or other person responsible. The opportunity was given to ask questions and all questions answered - Arterial Line Right Femoral Aseptic technique was employed throughout the procedure: Hand Hygiene done prior to procedure, Full sterile barriers (mask, hair cover, sterile gown, sterile gloves), Full body sterile drape, Chloraprep Antiseptic: 30 second prep for IJ or SC sites, Chloraprep Antiseptic: 2 minute prep for Femoral Time Out Performed: Yes Pt. placed on Pulse Ox Monitor: Yes Central Line Prep: Chlorhexidine-Alcohol Combination Ultrasound Used for Placement: Yes Technique Used: Guide Wire Technique Secured by: Suture Post procedure dressing: Clear vapor permeable, Chlorhexidine disc (Biopatch) Patient Tolerated Procedure: no complications Immediate Complications: none Additional Comments: Arterial Line Placement 58 yo female pt with cardiopulmonary arrest , sepsis, respiratory failure . Pt needs arterial line catheter placement for further treatment and resuscitation. Pt's right groin area was cleaned with chloroprep. Pt was draped with sterile cover. Pt's right groin area was again cleaned with chloroprep x2 . Under US guidance ,right Femoral Artery was cannulated and guidewire was passed into it. Using modified Seldinger technique, guidewire was removed and arterial line catheter was inserted. Good blood return observed . Line was secured in place with sutures. Dry sterile dressing and ABX patch were placed. Pt tolerated procedure well.
--- NOTE | 2018-03-18 14:59 | CP.PCM.CON ---
<Major Almendarez - Last Filed: 03/18/18 14:35> History of Present Illness - History of Present Illness History of Present Illness: Major Almendarez, PGY-1 ICU Consult Note This is a 58 year old female with PMH of chronic respiratory insufficiency, severe COPD, DM, multiple sclerosis, myotonic dystrophy, hypothyroidism, and renal cancer presenting to the ED via EMS for respiratory distress. Patient was intubated by EMS en route and glucose found to be in the 400s. Her respiratory status deteriorated and code blue was called and she subsequently underwent chest compressions. ROSC was achieved after approximately 15 minutes. Limited history and ROS due to patient being intubated. PMD: Dr. Contreras PMH: as above, per chart review FH: HT, DM and myotonic dystrophy per chart review SH: non smoker, does not drink alcohol and no illicit drugs per chart review All: penicillin Home meds: per MAR Past Patient History - Infectious Disease Hx of Infectious Diseases: None - Tetanus Immunizations Tetanus Immunization: Unknown - Past Social History Smoking Status: Never Smoked - CARDIAC Hx Hypertension: No - PULMONARY Hx Chronic Obstructive Pulmonary Disease (COPD): Yes - NEUROLOGICAL Hx Neurological Disorder: No - HEENT Hx HEENT Problems: Yes (pt stated "I need glasses") Hx Cataracts: Yes (bilateral cataract surgery) Other/Comment: removal of macular pocket of right eye/ jaw sx - RENAL Hx Chronic Kidney Disease: No - ENDOCRINE/METABOLIC Hx Diabetes Mellitus Type 2: Yes Hx Hypothyroidism: Yes - HEMATOLOGICAL/ONCOLOGICAL Hx Blood Disorders: Yes Hx Anemia: Yes (blood transfusion) Hx Cancer: Yes (rectal 2012) Hx Chemotherapy: Yes - INTEGUMENTARY Hx Dermatological Problems: No Hx Basil Cell: No Hx Eczema: No Hx Melanoma: No Hx Psoriasis: No Hx Squamous Cell: No Other/Comment: dry skin to feet, multiple surgical scars to abd, multiple small brown skin discoloratins to ble, slight red blanchable dry skin to buttocks, crooked great toes, multiple healed abd surgical scars - MUSCULOSKELETAL/RHEUMATOLOGICAL Hx Falls: Yes (last fall 12/01/17) - GASTROINTESTINAL Hx Gastrointestinal Disorders: Yes (RECTAL CA WAS ON CHEMO,HAD SX,PEG IN AND OUT ) Hx Colostomy: Yes (with reversal) Hx Diverticulitis: Yes Hx Gall Bladder Disease: Yes Other/Comment: fatty liver, colorectal sx, lower gi bleed, peg tube in and out, gastrosotmy 2011, colonoscopy 04/13/15 diverticulosis, hemorrhoids, polyp - GENITOURINARY/GYNECOLOGICAL Hx Reproductive Disorders: No - PSYCHIATRIC Hx Depression: No Hx Emotional Abuse: No Hx Physical Abuse: No Hx Substance Use: No - SURGICAL HISTORY Hx Surgeries: Yes (colostomy reversal) Hx Cholecystectomy: Yes Hx Hysterectomy: Yes (2005) Other/Comment: anterior resection and ileostomy 2011, 10/07/2012 bleeding ileostomy. exp lap, dissection portion of small bowel, dissection of ileostomy - ANESTHESIA Hx Anesthesia Reactions: No Hx Malignant Hyperthermia: No Meds Allergies/Adverse Reactions: Allergies Allergy/AdvReac Type Severity Reaction Status Date / Time Penicillins Allergy Severe ANGIOEDEMA Verified 03/18/18 09:58 - Medications Medications: Current Medications Albuterol/Ipratropium (Duoneb 3 Mg/0.5 Mg (3 Ml) Ud) 3 ml IH Q6 PRN PRN Reason: Shortness of Breath Dextrose (Dextrose 50% Inj) 0 ml IV STAT PRN; Protocol PRN Reason: Hypoglycemia Protocol Dextrose (Dextrose 5% In Water 1000 Ml) 1,000 mls @ 0 mls/hr IV .Q0M PRN; Protocol; Per Protocol PRN Reason: Hypoglycemia Protocol Potassium Chloride (Potassium Chloride 20 Meq/100 Ml) 20 meq in 100 mls @ 50 mls/hr IVPB Q2H [facility] Stop: 03/18/18 16:29 NOREPINEPHRINE BIT/0.9 % NACL (Levophed 4 Mg/ 250 Ml Ns Premixed) 4 mg in 250 mls @ 15 mls/hr IV .[id number] PRN; Protocol; 4 MCG/MIN PRN Reason: TITRATE PER MD ORDER Amiodarone HCl/Dextrose (Nexterone 360 Mg In D5w 200 Ml (Premix)) 360 mg in 200 mls @ 33.333 mls/hr IV .Q6H [facility]; 1 MG/MIN PRN Reason: Protocol Sodium Chloride (Sodium Chloride 0.9%) 1,000 mls @ 100 mls/hr IV .Q10H [facility] Propofol (Diprivan) 1,000 mg in 100 mls @ 1.817 mls/hr IV .Q24H PRN; Protocol; 5 MCG/KG/MIN PRN Reason: TITRATE PER MD ORDER Aztreonam (Azactam 1 Gm) 100 mls @ 100 mls/hr IVPB Q8 [facility] PRN Reason: Protocol Stop: 03/23/18 14:31 Insulin Detemir (Levemir) 20 unit SC Q12H [facility] Insulin Human Regular (Humulin R Low) 0 units SC Q4H [facility] PRN Reason: Protocol Methylprednisolone (Solu-Medrol) 40 mg IVP Q8 [facility] Physical Exam - Head Exam Head Exam: ATRAUMATIC, NORMAL INSPECTION - Eye Exam Eye Exam: Normal appearance Pupil Exam: PERRL - Neck Exam Neck exam: Positive for: Normal Inspection - Respiratory Exam Respiratory Exam: Decreased Breath Sounds, Wheezes - Cardiovascular Exam Cardiovascular Exam: REGULAR RHYTHM, +S1, +S2 - GI/Abdominal Exam GI & Abdominal Exam: Normal Bowel Sounds - Extremities Exam Extremities exam: Positive for: normal inspection. Negative for: joint swelling - Neurological Exam Additional comments: intubated - Psychiatric Exam Additional comments: intubated Results - Vital Signs Recent Vital Signs: Last Vital Signs Temp 98.4 F 03/18/18 10:30 Pulse 98 H 03/18/18 12:56 Resp 18 03/18/18 11:00 BP 117/46 L 03/18/18 12:40 Pulse Ox 94 L 03/18/18 11:00 - Labs Result Diagrams: 03/18/18 10:00 03/18/18 10:00 Assessment & Plan - Assessment and Plan (Free Text) Assessment: This is a 58 year old female with PMH of chronic respiratory insufficiency, severe COPD, DM, multiple sclerosis, myotonic dystrophy, hypothyroidism, and renal cancer presenting to the ICU for management of acute hypoxic respiratory failure requiring ventilator with sepsis secondary to likely UTI. Patient had code blue called and chest compressions performed with ROSC after approximately 15 minutes. Overall prognosis is guarded. Plan: Neuro: -maintain normothermia, hypothermia protocol -currently sedated with propoful and intubated with vent settings of TV 400, PEEP 5, RR 18 and FiO2 80% Cardio: -maintain MAP>65 -will monitor vitals including HR and BP closely -Echo pending -On amiodarone drip, previously in Vtach during code heart -On levophed drip -troponin pending -EKG noted and reviewed, showed rate of 115 with right heart strain -Cardio consulted, Dr. Mcginnis Lungs: -SaO2 >90% -supplementary O2 PRN -solumedrol 40mg q8, duonebs PRN -CXR post central line place reveals no pneumothorax -Pulm consulted, Dr. Leyva Renal: -maintain euvolemia -avoid nephrotoxic agents, hypochloremia -replace electrolytes as needed -BUN/Cr is 44/0.8, will monitor -corrected calcium is 8.5 -Low Mg and K+. Given replacements -NS @ 100 ml/hr -ABG on admission today reads pH/pO2/pCO2/bicarb of 7.53/47/34/28.4. Primary chronic respiratory alkalosis -U/A positive for leukocyte esterase, large bacteria, 20-25 WBC Heme: -Hg today is 13.6 -PT/INR/PTT: 13/1.14/23.7 -LE duplex pending -DVT ppx with heparin 5k SC Endo: -maintain euglycemia -Insulin drip. Gap of 15 on admission, no ketones in urine. Most recent glucose in the 500s -finger stick glucose q1 -TSH, T4 pending -A1c pending -Endo consulted, Dr. De La Rosa ID: -WBC is 18.7 afebrile -On aztreonam. Vancomycin previously given in ED -blood culture, MRSA screen pending -ID consulted, Dr. Glynn -GI: -GI prophylaxis with protonix <See Musa - Last Filed: 03/18/18 16:07> Meds - Medications Medications: Current Medications Albuterol/Ipratropium (Duoneb 3 Mg/0.5 Mg (3 Ml) Ud) 3 ml IH Q6 PRN PRN Reason: Shortness of Breath Dextrose (Dextrose 50% Inj) 0 ml IV STAT PRN; Protocol PRN Reason: Hypoglycemia Protocol Heparin Sodium (Porcine) (Heparin) 5,000 units SC Q8 [facility] PRN Reason: Protocol Dextrose (Dextrose 5% In Water 1000 Ml) 1,000 mls @ 0 mls/hr IV .Q0M PRN; Protocol; Per Protocol PRN Reason: Hypoglycemia Protocol Potassium Chloride (Potassium Chloride 20 Meq/100 Ml) 20 meq in 100 mls @ 50 mls/hr IVPB Q2H [facility] Stop: 03/18/18 16:29 NOREPINEPHRINE BIT/0.9 % NACL (Levophed 4 Mg/ 250 Ml Ns Premixed) 4 mg in 250 mls @ 15 mls/hr IV .[id number] PRN; Protocol; 4 MCG/MIN PRN Reason: TITRATE PER MD ORDER Amiodarone HCl/Dextrose (Nexterone 360 Mg In D5w 200 Ml (Premix)) 360 mg in 200 mls @ 33.333 mls/hr IV .Q6H [facility]; 1 MG/MIN PRN Reason: Protocol Sodium Chloride (Sodium Chloride 0.9%) 1,000 mls @ 100 mls/hr IV .Q10H [facility] Propofol (Diprivan) 1,000 mg in 100 mls @ 1.817 mls/hr IV .Q24H PRN; Protocol; 5 MCG/KG/MIN PRN Reason: TITRATE PER MD ORDER Aztreonam (Azactam 1 Gm) 100 mls @ 100 mls/hr IVPB Q8 [facility] PRN Reason: Protocol Stop: 03/23/18 14:31 Insulin Human Regular 100 (units/ Sodium Chloride) 100 mls @ 4 mls/hr IV .Q24H PRN; Protocol; 4 UNITS/HR PRN Reason: TITRATE PER MD ORDER Methylprednisolone (Solu-Medrol) 40 mg IVP Q8 [facility] Pantoprazole Sodium (Protonix Inj) 40 mg IVP DAILY [facility] Results - Vital Signs Recent Vital Signs: Last Vital Signs Temp 98.4 F 03/18/18 10:30 Pulse 98 H 03/18/18 12:56 Resp 18 03/18/18 11:00 BP 117/46 L 03/18/18 12:40 Pulse Ox 94 L 03/18/18 11:00 - Labs Result Diagrams: 03/18/18 15:41 03/18/18 10:00 Labs: Laboratory Results - last 24 hr 03/18/18 03/18/18 03/18/18 14:50 15:39 15:40 WBC RBC Hgb Hct MCV MCH MCHC RDW Plt Count MPV Gran % Lymph % (Auto) [place] % (Auto) Eos % (Auto) Baso % (Auto) Gran # Lymph # (Auto) [place] # (Auto) Eos # (Auto) Baso # (Auto) pCO2 32 L pO2 173.0 H 64 H HCO3 19.8 L ABG pH 7.40 ABG Total CO2 20.8 L ABG O2 Saturation 98.4 H ABG Base Excess -4.0 L ABG Potassium 3.4 L VBG pH 7.29 L VBG pCO2 53.0 VBG HCO3 25.5 VBG Total CO2 27.1 VBG O2 Sat (Calc) 93.1 H VBG Base Excess -1.9 L VBG Potassium 4.1 Sodium 144.0 143.0 Chloride 105.0 100.0 Glucose 685 H* > 750 H* Lactate 2.9 H 3.3 H Mechanical Rate 18 FiO2 100.0 21.0 Tidal Volume 400 PEEP 5 POC Glucose (mg/dL) > 500 H* Arterial Blood Potassium 3.4 L Venous Blood Potassium 4.1 BBK History Checked 03/18/18 03/18/18 15:41 15:41 WBC 23.1 H D RBC 4.07 Hgb 11.6 L D Hct 39.6 MCV 97.3 MCH 28.5 MCHC 29.3 L RDW 14.9 H Plt Count 301 MPV 12.5 H Gran % 95.7 H Lymph % (Auto) 1.3 L [place] % (Auto) 2.9 Eos % (Auto) 0.0 L Baso % (Auto) 0.1 Gran # 22.06 H Lymph # (Auto) 0.3 L [place] # (Auto) 0.7 H Eos # (Auto) 0.0 Baso # (Auto) 0.02 pCO2 pO2 HCO3 ABG pH ABG Total CO2 ABG O2 Saturation ABG Base Excess ABG Potassium VBG pH VBG pCO2 VBG HCO3 VBG Total CO2 VBG O2 Sat (Calc) VBG Base Excess VBG Potassium Sodium Chloride Glucose Lactate Mechanical Rate FiO2 Tidal Volume PEEP POC Glucose (mg/dL) Arterial Blood Potassium Venous Blood Potassium BBK History Checked Patient has bt Attending/Attestation - Attestation I have personally seen and examined this patient.: Yes I have fully participated in the care of the patient.: Yes I have reviewed all pertinent clinical information: Yes Notes (Text): 03/18/18 16:01 The patient was seen and examined at the bedside. Patient care was discussed with resident Medical records, lab studies, and imaging were reviewed and management issues were discussed and formulated. Agree with above treatment plans as outlined in 's note with addition of the following: Cardiopulmonary Arrest \\ VTach \\ Acute Respiratory Failure \\ Hypoxemia \\ Septic shock \\ UTI \\ Uncontrolled DM 2 \\ Hypothermia protocol \\ COPD \\ -s\\p cardiopulmonary arrest in ED; hypothermia protocol started upon arrival to ICU -hemodynamic monitoring to maintain MAP>65; continue Amiodarone as pt has an episode of Ventricular tachycardia during arrest -cardiology team eval -f\\u serial CE and ECG; f\\u Echo -mechanical ventilation to maintain Spo2>90 Pao2>60; current mode PRVC -monitor for TV 6ml\\kg IBW and plateau pressure <30 -ABG reviewed and CXR reviewed -continue nebs and steroids -Continue broad spectrum Abx ; ID team eval ; f\\u cultures; pyuria noted on exam -f\\u Bun\\Cr and U\\o; -start insulin drip and monitor BGM -NPO diet and aspiration precautions -DVT \\ PUD prophylaxis -consider palliation team eval CCM time excluding procedures 45min
--- NOTE | 2018-03-18 15:10 | PCM.PROC ---
<Ken Larkin - Last Filed: 03/18/18 15:04> Procedures Attestation:: I certify that I have explained the specified Operation(s) or Procedure(s), risks, benefits and reasonable alternatives to the Patient and/or other person responsible. The opportunity was given to ask questions and all questions answered - Central Line Placement Right Internal Jugular Triple Lumen Catheter Aseptic technique was employed throughout the procedure: Hand Hygiene done prior to procedure, Full sterile barriers (mask, hair cover, sterile gown, sterile gloves), Full body sterile drape, Chloraprep Antiseptic: 30 second prep for IJ or SC sites CVP Time Out Performed: Yes Pt. Placed on Pulse Ox Monitor: Yes Central Line Prep: Chlorhexidine-Alcohol Combination Ultrasound Used for Placement: Yes Central Line Lumen Inserted: triple Central Line Length: 16 cm (15 cm) Post Procedure: Sutured in Place, Good Blood Return, All Ports Aspirated, Flushed, Capped, Sterile Dressing Applied Secured by: Securement device Post procedure dressing: Gauze, Clear vapor permeable, Chlorhexidine disc ( Biopatch) Post Procedure X-Ray: Yes Patient Tolerated Procedure: Well Immediate Complications: None Additional Comments: Procedure supervised by Dr. Musa, who was present for all [place] portions of the procedure. <See Musa - Last Filed: 03/18/18 15:24> Attending/Attestation - Attestation I have personally seen and examined this patient.: Yes I have fully participated in the care of the patient.: Yes I have reviewed all pertinent clinical information, including history, physical exam and plan: Yes Notes (Text): 03/18/18 15:22 Emergent Central Line placement for 58yo female pt s\p Cardiopulmonary arrest Ultrasound Guided Right IJ Vein triple lumen central line was placed by I was present at bedside and supervised the procedure
--- NOTE | 2018-03-18 15:25 | CON ---
Copied To: Shauna De La Rosa MD Attending MD: Shauna De La Rosa MD DATE: 03/18/2018 ENDOCRINOLOGY CONSULT LOCATION: In CCU 129, room 5. HISTORY OF PRESENT ILLNESS: This is a 58-year-old female with known history of type 2 insulin-requiring diabetes, who initially had hyperglycemic accelerations at home and supervening progressive shortness of breath whereupon the visiting nurse called in the paramedics and was found to have marked hypoxia with acute respiratory failure and was intubated on the field and brought into the [facility] emergency room. She is being referred now for diabetic evaluation and management. All the information is obtained from the chart review and the consultants' notes and management. 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 FAMILY HISTORY: Positive for hypertension and heart disease. SOCIAL HISTORY: The patient has supportive family. No known substance use. REVIEW OF SYSTEMS: Not possible at this time, but the chart has been noted accordingly. Review of systems as per review of the chart. She actually was having a CT angio done at the Radiology Department when she became extremely tachycardic and went into asystole where code blue was called in and was found to be in V-tach and underwent defibrillation and was successfully resuscitated at this time. PHYSICAL EXAMINATION: GENERAL: This is an average built female. This is an Asthenic female, currently endotracheally intubated and sedated. VITAL SIGNS: Blood pressure of 100/60, pulse of 120 beats per minute, regular, temperature 98, respirations as per ventilator parameters. HEENT: Head normocephalic. Eyes anicteric with pale conjunctivae. Funduscopy not possible at this time. Ears, nose and throat otherwise normal. NECK: Supple. Thyroid gland shows no overt thyromegaly or palpable nodules. HEART: Hyperdynamic precordium. S1, S2 are rapid and regular. LUNGS: Show scattered rhonchi. Abdomen is flat, soft with positive bowel sounds. EXTREMITIES: No peripheral edema. Pulses are +2 bilaterally. LABORATORY DATA: Her WBC is 18.7, hemoglobin of 13, hematocrit of 44, MCV 96, platelets 310. The chemistries: BUN of 44, sodium 144, potassium 3.1, chloride 101, CO2 of 28, glucose 524 and creatinine 0.8. Her TSH is 1.85. ASSESSMENT: This is a 58-year-old female with uncontrolled and decompensated type 2 insulin-requiring diabetes, presenting here with marked hyperglycemic accelerations and supervening acute respiratory failure with significant history of chronic obstructive pulmonary disease and underlying myotonic dystrophy as noted. PLAN OF MANAGEMENT: We will intensify her fingerstick glucose monitoring and glucose levels will be done every 4 hours with regular insulin coverage scale as ordered. She has been started on IV steroids and would expect hyperglycemic accelerations with the underlying increased insulin resistance thereof. We will also add basal insulin given as Levemir at 20 units subcu every 12 hours at 08:00 a.m. and 08:00 p.m. daily to start today. We will observe her glycemic fluctuations overnight and titrate her dose regimen accordingly to optimize metabolic control. We will obtain repeat thyroid studies to determine the need to adjust her levothyroxine dose accordingly. We will continue the IV hydration as given and obtain serial chemistries and supplement accordingly as needed. We will follow. Shauna De La Rosa MD
--- NOTE | 2018-03-18 15:27 | CON ---
Copied To: Adam Leyva MD Attending MD: Adam Leyva MD. DATE: 03/18/2018 PULMONARY CONSULTATION REASON FOR CONSULTATION: Respiratory failure. REFERRING PHYSICIAN: Tom Contreras DO HISTORY OF PRESENT ILLNESS: History is obtained via extensive discussion with the Emergency Room Nursing Staff. I have also reviewed the chart at length. The patient is currently intubated and sedated. The patient is a chronically ill 58-year-old female, with past medical history significant for chronic obstructive pulmonary disease, advanced myotonic dystrophy, chronic respiratory insufficiency (significant noncompliance with her BiPAP at home), respiratory failure in the past, diabetes mellitus, hypothyroidism, recent left lower lobe pneumonia, rectal cancer, status post resection and chemotherapy, who presents to [facility] - after being intubated in the field. Apparently, a home health aide was visiting the patient. The home health aide found the patient to be very short of breath. There was also a cough noted. In addition to the above, the patient was noted to have oxygen desaturation. When Emergency Medical Services arrived at the home, the patient was noted to have very labored respirations with oxygen desaturation. She was thus intubated for airway protection and ventilation. I am thus asked to evaluate on this case for additional management and treatment. As stated above, the patient was found to have severe shortness of breath with cough. There is no history of significant sputum production. There is no history of chest pain, coughing up of blood, or chest pain - made worse with deep respirations. There is no history of temperatures, chills, or infectious exposure. There is no history of night sweats, weight loss, or appetite change prior to the above events. No history of leg or calf pains. No history of syncope or diaphoresis. No history of recent travel or trauma. REVIEW OF SYSTEMS: No history of nausea, vomiting, or diarrhea. No known acute urinary symptoms. No new musculoskeletal complaints. Rest of the review of systems negative. ALLERGIES: PENICILLIN. SOCIAL HISTORY: Positive for tobacco and negative for alcohol. FAMILY HISTORY: No inheritable diseases. HOME MEDICATIONS: Include Januvia, Synthroid, Levemir, Lasix, TriCor, DuoNeb, and acetylcysteine. PHYSICAL EXAMINATION: GENERAL: The patient is currently intubated and sedated. VITAL SIGNS: Temperature is 98.7, pulse 98, respirations 18/18, blood pressure 93/53. HEENT: Normocephalic, atraumatic. No JVD. CARDIOVASCULAR: Positive S1, S2. No S3 gallop. LUNGS: Decreased breath sounds at the bases. Mild bilateral rhonchi. No wheezing. EXTREMITIES: Mild edema. No cyanosis, no clubbing. GASTROINTESTINAL: Abdomen is soft, nondistended. Bowel sounds are positive. SKIN: No acute rash. NEUROLOGIC: Limited at the present time. PERTINENT LABORATORY DATA: Chest x-ray was done this morning and reviewed. There is chronic elevation of the right hemidiaphragm. In addition, there is a significant decrease/clearing of the left lower lobe infiltrate - seen on the chest x-ray of 03/01/2018. CBC: White count is 18.7K, hemoglobin 13.6, hematocrit 44.5, platelets of 310,000. Complete metabolic profile: Potassium 3.1, BUN 44, glucose 524, calcium 7.2, phosphorus 2.2, magnesium 1.5. Total protein 4.8, albumin 2.5. Rest of the metabolic profiles is within normal limits. Arterial blood gas is pending. Urinalysis is pending - however, there is purulent material in the Carrera catheter. IMPRESSION: 1. Recurrent respiratory failure. 2. Chronic respiratory insufficiency. 3. Advanced myotonic dystrophy. 4. Chronic obstructive pulmonary disease. 5. Mild bronchospasm. 6. Possible urosepsis. PLAN: Again, I did discuss the case with the nursing staff at length. I have also reviewed the chart at length. The patient is currently intubated and sedated. As above, the patient was found by her home health aide to be short of breath. In addition, there was also a cough noted, along with oxygen desaturation. Emergency Medical Services were then called. When arriving on the scene, the patient continued to have labored respirations. She was thus intubated for airway protection and transferred to [facility] I did review the chest x-ray as above. The chest x-ray is actually much improved from the previous films. As above, there is almost complete clearing of the previously seen left lower lobe infiltrate. Arterial blood gas has been ordered. I will check that when feasible. Upon review of the laboratory data, there is a significant leukocytosis. As above, the urine appears as a possible source for the leukocytosis. Dr. Glynn (Infectious Disease) has been called on the case for antibiotic usage. Dr. Mcginnis (Cardiology) has also been called on the case. The patient is critically ill at the present time. Her overall prognosis - given her above history - does remain poor. The medical ICU team has been called. I will discuss the case with the medical ICU team at length. I will also discuss the above with Dr. Contreras at length. Thank you very much for this pulmonary consultation. Adam Leyva MD MTDD
[2018-03-18 15:43] LABS: VENOUS BLOOD GAS BASE EXCESS -1.9 mmol/L (0.0-2.0); VENOUS BLOOD GAS PO2 64 mm/Hg (30-55); VENOUS BLOOD PH 7.29 (7.32-7.43)
[2018-03-18 15:46] LABS: BASO # 0.02 K/mm3 (0.0-2.0); BASO % 0.1 % (0.0-3.0); GRAN # 22.06 (1.4-6.5); GRAN % 95.7 % (50.0-68.0); HEMOGLOBIN 11.6 g/dL (12.0-16.0); LYMPH # 0.3 (1.2-3.4); LYMPH % 1.3 % (22.0-35.0); MEAN CELL VOLUME 97.3 fl (80.0-105.0); MEAN CORPUSCULAR HEMOGLOBIN 28.5 pg (25.0-35.0); MEAN CORPUSCULAR HGB CONC 29.3 g/dl (31.0-37.0); MEAN PLATELET VOLUME 12.5 fl (7.0-11.0); MONO # 0.7 (0.1-0.6); MONO % 2.9 % (1.0-6.0); PLATELET COUNT 301 10^3/uL (120.0-450.0); RBC 4.07 10^6/uL (3.5-6.1); RED CELL DISTRIBUTION WIDTH 14.9 % (11.5-14.5); WHITE BLOOD COUNT 23.1 10^3/ul (4.5-11.0)
[2018-03-18] MEDS ORDERED: Insulin Regular 100 UNITS in Sodium Chloride 0.9% 99 ML IV PRN ×2 (15:47→18:53)
[2018-03-18] MEDS: MethylPREDNISolone 40 mg Vial IVP SCH ×2 (15:48→21:15)
[2018-03-18] MEDS ORDERED: Insulin Reg-LOW-Coverage SC SCH (16:00)
[2018-03-18 16:12] LABS: ALB/GLOB RATIO 1.2 (1.1-1.8); ALBUMIN 2.8 g/dL (3.0-4.8); ALT/SGPT 2235 U/L (7-56); BLOOD UREA NITROGEN 45 mg/dL (7-21); CALCIUM 8.2 mg/dL (8.4-10.5); GFR AFRICAN-AMERICAN > 60; GFR NON-AFRICAN AMERICAN 51; TROPONIN I 0.14 ng/mL
[2018-03-18 16:24] LABS: AST/SGOT 4645 U/L (14-36)
[2018-03-18 16:30] LABS: BAND 4 % (0-2); LYMPHOCYTE 2 % (22.0-35.0); MONOCYTE 1 % (1.0-6.0); NEUTROPHIL 93 % (50.0-70.0)
[2018-03-18 16:31] LABS: ANISOCYTOSIS SLIGHT; HYPOCHROMIA SLIGHT; PLATELET ESTIMATE NORMAL (NORMAL)
--- NOTE | 2018-03-18 17:48 | US ---
HISTORY: Leg pain and swelling. Evaluate for DVT PHYSICIAN(S): Venancio Damon MD. TECHNIQUE: Duplex sonography and color-flow Doppler with graded compression were used to evaluate the deep venous systems of both lower extremities. The right thigh is wrapped in bandages. FINDINGS: The visualized deep venous systems of both lower extremities are sonographically normal and compressible. Normal wave forms and augmentation are seen. There is no sonographic evidence for deep venous thrombosis in the visualized segments of both lower extremities. IMPRESSION: No sonographic evidence for deep venous thrombosis in the visualized segments of both lower extremities. Limited study
[2018-03-18] MEDS: Amiodarone 360 mg/D5W 200 ml 360 MG/200 ML BAG IV SCH (19:00)
[2018-03-18 19:03] VITALS: BMI 24.9
--- NOTE | 2018-03-18 19:07 | CARD ---
APPROVED REPORT Date of service: 03/18/2018 EXAM: Two-dimensional and M-mode echocardiogram with Doppler and color Doppler. INDICATION 2D DIMENSIONS IVSd0.8 (0.7-1.1cm)LVDd4.1 (3.9-5.9cm) PWd1.0 (0.7-1.1cm)LVDs2.8 (2.5-4.0cm) FS (%) 31.9 %LVEF (%)60.4 (>50%) M-Mode DIMENSIONS Left Atrium (MM)2.90 (2.5-4.0cm)Aortic Root2.90 (2.2-3.7cm) Aortic Cusp Exc.2.00 (1.5-2.0cm) Aortic Valve AoV Peak Oodynanr721.0cm/Jade Peak GR.5mmHg Mitral Valve MV E Mwexpppn33.8cm/sMV A Jxgswmar12.9cm/sE/A ratio1.1 TDI Lateral E' Peak V10.90cm/sMedial E' Peak V9.07cm/sE/Lateral E'5.1 E/Medial E'6.2 Tricuspid Valve TR Peak Cpdoeuto258sw/sRAP [id number] Peak Gr.24mmHg [id number] LEFT VENTRICLE The left ventricle is normal size. There is normal left ventricular wall thickness. The left ventricular function is normal.EF-55-60% There is normal LV segmental wall motion. The left ventricular diastolic function is normal. No left ventricle thrombus noted on this study. There is no ventricular septal defect visualized. There is no left ventricular aneurysm. There is no mass noted in the left ventricle. RIGHT VENTRICLE The right ventricle is normal size. There is normal right ventricular wall thickness. The right ventricular systolic function is normal. ATRIA The left atrium size is normal. The right atrium size is normal. The interatrial septum is intact with no evidence for an atrial septal defect. AORTIC VALVE The aortic valve is thickened but opens well. No aortic regurgitation is present. There is no aortic valvular stenosis. There is no aortic valvular vegetation. MITRAL VALVE The mitral valve is thickened but opens well. Mitral regurgitation is trace. There is no mitral valve stenosis. There is no evidence of mitral valve prolapse. TRICUSPID VALVE The tricuspid valve leaflets are thickened , but open well. There is trace tricuspid regurgitation.RVSP-34 mmof hg. There is no tricuspid valve stenosis. There is no tricuspid valve prolapse or vegetation. PULMONIC VALVE The pulmonary valve is normal in structure. There is trace pulmonic valvular regurgitation. There is no pulmonic valvular stenosis. GREAT VESSELS The aortic root is normal in size. The ascending aorta is normal in size. The pulmonary artery is normal. The IVC is normal in size and collapses >50% with inspiration. PERICARDIAL EFFUSION There is no pleural effusion. There is no pericardial effusion. <Conclusion> Normal chamber Size. Ef-55-60% Mitral regurgitation is trace. There is trace tricuspid regurgitation.RVSP-34 mmof hg. The IVC is normal in size and collapses >50% with inspiration. There is no pericardial effusion. No Vegetation or thrombus noted.
[2018-03-18] MEDS ORDERED: Insulin Detemir 100 units/ml Vial (Levemir) SC SCH (20:00)
[2018-03-18] MEDS: Insulin Regular 100 UNITS in Sodium Chloride 0.9% 99 ML IV PRN (20:45)
[2018-03-18] MEDS: Linezolid 600 mg in D5W 300 ml 600 MG/300 ML BAG IVPB SCH (22:10)
[2018-03-18 22:16] LABS: VENOUS BLOOD GAS BASE EXCESS -2.9 mmol/L (0.0-2.0); VENOUS BLOOD GAS PO2 167 mm/Hg (30-55); VENOUS BLOOD PH 7.31 (7.32-7.43)
[2018-03-18 22:26] LABS: BLOOD UREA NITROGEN 41 mg/dL (7-21); CALCIUM 8.5 mg/dL (8.4-10.5); GFR AFRICAN-AMERICAN > 60; GFR NON-AFRICAN AMERICAN 57
[2018-03-18] MEDS ORDERED: Potassium Phosphate 15 MMOLE in Dextrose 5% In Water 250 ML IVPB ONE (22:43)
--- NOTE | 2018-03-18 23:17 | HP ---
Copied To: Tom Contreras DO Attending MD: Tom Contreras DO HISTORY OF PRESENT ILLNESS: I know Cyndi for a while doing house calls on her. She was recently in the hospital for COPD and was on the Transitional Care Unit before she went home. I was into a house call on her this week. Apparently she was found by the nurse being in respiratory distress, called 911, and she was on BiPAP and medically sedated to help her here. I think they gave her Solu-Medrol in the field and now she is intubated in the emergency room. She is a 58-year-old female who I know very well, with multiple issues of taking her medications, she is very noncompliant with the medications. She has a history of COPD. 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 She is supposed to be on prednisone and physical therapy, and BiPAP and suctioning, and she refuses most of that. She has a past medical history also of hypertension, COPD, diabetes, hypothyroid, rectal cancer status post resection, chemotherapy in the past. She is now with a shortness of breath to the point where that to intubate her. She had jaw surgery in the past, removal of macular things in the right eye. She has abdominal scar, so abdominal surgeries; multiple falls, rectal cancer, diverticulitis, history of fatty liver, UTIs, multiple bronchitis, cholecystectomy, hysterectomy, and myotonic dystrophy. FAMILY HISTORY: There is also a family history of myotonic dystrophy in the family, hypertension and diabetes. SOCIAL HISTORY: She has never smoked. No alcohol. No drugs. ALLERGIES: SHE HAS ALLERGIES TO PENICILLIN. REVIEW OF SYSTEMS: She is intubated and sedated. MEDICATIONS: She is currently on acetylcysteine, Colace, DuoNeb, insulin, Januvia, Lasix, Levemir, promethazine, prednisone, Synthroid, TriCor. PHYSICAL EXAMINATION: GENERAL: She is intubated. She is sedated. HEENT: Head is atraumatic, normocephalic. HEART: Regular rate. LUNGS: Decreased breath sounds bilaterally. ABDOMEN: Soft. EXTREMITIES: No edema. SKIN: From what I could tell, is intact. NEUROLOGICAL: She is sedated, cannot do a neurological evaluation. LABORATORY DATA: She has a urine which has moderate leukocytes. She has a 144 sodium, potassium is 3.1, we have to replace the potassium, BUN 44, creatinine 0.8, a little dry, we will get her some fluids. Sugar was 524. GFR is greater than 60. Calcium is 7.2, phosphorus 2.2, magnesium 1.5 total bili is 0.6, AST is 33, ALT is 29, alk phos is 33. Troponin I is less than 0.01. Total protein is 4.8, albumin is 2.5, globulin 2.4, lipase 13. Blood gases, 7.53, a little alkalosis. INR is 1.14. White count is carine high at 80.7, hemoglobin 13.6, hematocrit 44.5, and platelets of 310. IMPRESSION: She is going to have consults with Pulmonary for ventilation, Cardiology for her cardiac evaluation, Endocrinology for elevated blood sugars, and Infectious Disease for IV antibiotics. She is currently on aztreonam, IV fluids and vancomycin. We will check her labs tomorrow. She will Intensive Care Unit. Cyndi Aranda has got acute respiratory failure, sepsis, possible pneumonia. Waiting for x-rays and CAT scans to come back. We will be very aggressive with her care, replacing her potassium. Tom Contreras DO MTDD
[2018-03-19] MEDS: NOREPINEPHRINE BIT/0.9 % NACL 4 MG/250 ML BAG IV PRN ×3 (00:11→19:07)
[2018-03-19] MEDS: Insulin Regular 100 UNITS in Sodium Chloride 0.9% 99 ML IV PRN (00:27)
[2018-03-19] MEDS: Dextrose 5%/0.45% NS 1,000 ML IV SCH ×2 (01:50→19:30)
[2018-03-19 01:51] LABS: BLOOD UREA NITROGEN 39 mg/dL (7-21); CALCIUM 8.2 mg/dL (8.4-10.5); GFR AFRICAN-AMERICAN > 60; GFR NON-AFRICAN AMERICAN > 60
[2018-03-19 02:14] LABS: TROPONIN I 0.33 ng/mL
[2018-03-19] MEDS: MethylPREDNISolone 40 mg Vial IVP SCH ×3 (05:08→21:49)
[2018-03-19] MEDS: Aztreonam 1 Gm in NS 100mL 100 ML IVPB SCH ×3 (05:13→21:48)
[2018-03-19 05:39] LABS: ARTERIAL BLOOD GAS HCO3 27.8 mmol/L (21-28); ARTERIAL BLOOD GAS HEMOGLOBIN 11.6 g/dL (11.7-17.4); ARTERIAL BLOOD GAS O2 CAPACITY 16.4 mL/dl (16-24); ARTERIAL BLOOD GAS O2 SAT 97.6 % (95-98); ARTERIAL BLOOD GAS PCO2 46 mm/Hg (35-45); ARTERIAL BLOOD GAS PH 7.39 (7.35-7.45); ARTERIAL BLOOD GAS TCO2 29.2 mmol.L (22-28)
[2018-03-19 05:51] LABS: HEMOGLOBIN 11.9 g/dL (12.0-16.0); MEAN CORPUSCULAR HEMOGLOBIN 28.9 pg (25.0-35.0); MEAN CORPUSCULAR HGB CONC 31.8 g/dl (31.0-37.0); MEAN PLATELET VOLUME 12.3 fl (7.0-11.0); RBC 4.12 10^6/uL (3.5-6.1); RED CELL DISTRIBUTION WIDTH 14.6 % (11.5-14.5); WHITE BLOOD COUNT 19.9 10^3/ul (4.5-11.0)
[2018-03-19 05:56] LABS: VENOUS BLOOD GAS BASE EXCESS 3.2 mmol/L (0.0-2.0); VENOUS BLOOD GAS PO2 142 mm/Hg (30-55); VENOUS BLOOD PH 7.43 (7.32-7.43)
[2018-03-19 06:02] LABS: MEAN CELL VOLUME 90.8 fl (80.0-105.0)
[2018-03-19 06:29] LABS: FREE T4 1.82 ng/dL (0.78-2.19)
[2018-03-19 06:32] LABS: T4 7.7 ug/dL (5.5-11.0)
[2018-03-19 07:05] LABS: ALBUMIN 2.7 g/dL (3.0-4.8); ALT/SGPT 1827 U/L (7-56); BLOOD UREA NITROGEN 36 mg/dL (7-21); CALCIUM 8.1 mg/dL (8.4-10.5); GFR AFRICAN-AMERICAN > 60; GFR NON-AFRICAN AMERICAN > 60; HDL CHOLESTEROL 38 mg/dL (29-60); LDL CHOLESTEROL < 30 mg/dL (0-129)
[2018-03-19] MEDS: Amiodarone 360 mg/D5W 200 ml 360 MG/200 ML BAG IV SCH ×2 (07:07→19:30)
[2018-03-19] MEDS: Levalbuterol 1.25 MG/3 ML Inhal Soln UD IH SCH ×3 (07:23→20:10)
--- NOTE | 2018-03-19 08:15 | PN ---
Copied To: Adam Leyva MD Attending MD: Adam Leyva MD DATE: 03/19/2018(620am-710am) PULMONARY NOTE SUBJECTIVE: The patient is currently in the ICU. She is intubated and sedated. PHYSICAL EXAMINATION: VITAL SIGNS: Temperature is 97.4, pulse 62, respirations 22/18, blood pressure 139/80. Oxygen saturation on the ventilator is 100%. HEENT: Normocephalic, atraumatic. No JVD. CARDIOVASCULAR: Positive S1, S2. No S3 gallop. LUNGS: Decreased breath sounds at the bases. Mild bilateral rhonchi. No wheezing. EXTREMITIES: Mild edema. No cyanosis or clubbing. GI: Abdomen is soft, nondistended. Bowel sounds are positive. SKIN: No acute rash. NEUROLOGIC: Limited at the present time. PERTINENT LABORATORY DATA: Chest x-ray was done this morning and reviewed. There is chronic elevation of the right hemidiaphragm. I do not appreciate any new/significant infiltrates. Arterial blood gas was done on PRVC 18, tidal volume 400, FIO2 of 80%. Results are: PH 7.39, pCO2 of 46, pO2 of 113. CBC: White count 19.9, hemoglobin 11.9, hematocrit 37.4, platelets of 285,000. IMPRESSION: 1. Recurrent respiratory failure. 2. Chronic respiratory insufficiency. 3. Advanced myotonic dystrophy. 4. Chronic obstructive pulmonary disease. 5. Mild bronchospasm. 6. Probable urosepsis. PLAN: The patient is currently in the ICU. She is intubated and sedated. I did discuss the case with the night nurse at length. I have also reviewed the chart at length. Apparently, while at CAT scan, the patient did lose blood pressure and pulse yesterday. She was successfully resuscitated and transferred to the medical ICU. The blood pressure is better this morning, and the nurse will try to wean off the Levophed (blood pressure permitting). I did review the chest x-ray as above. There is chronic elevation of the right hemidiaphragm. However, I do not appreciate any new or significant infiltrates. Official results are pending. I have also reviewed the arterial blood gas. There is now normalization of the pH. However, there remains a significant alveolar-arterial gradient. We can probably decrease the FIO2 at this point in time. I will discuss this issue with the ICU team. On physical exam, the patient is in mild bronchospasm. I will change the nebulizer treatments to scheduled Xopenex. The patient is also on intravenous steroids. I would continue with the antibiotic coverage as per Infectious Disease. There are no temperatures noted. The leukocytosis is decreased. Cardiology evaluation with Dr. Mcginnis has been ordered. Input by Dr. De La Rosa (Endocrine) is also noted. Additional a.m. labs are pending. The patient is currently critically ill, with overall poor prognosis. Again, in addition to the above, the patient does have advanced myotonic dystrophy. Her overall clinical status has been worsening over the past few years. I will discuss the above with the entire ICU team in the next few moments. I will also discuss the above with Dr. Contreras later this morning. Adam Leyva MD MTDAminata
[2018-03-19 08:28] LABS: AST/SGOT 4918 U/L (14-36)
--- NOTE | 2018-03-19 09:04 | RAD ---
Date of service: 03/19/2018 HISTORY: f/u COMPARISON: 03/18/2018 FINDINGS: LUNGS: Minimal bibasilar subsegmental atelectasis. No acute infiltrate. PLEURA: No significant pleural effusion identified, no pneumothorax apparent. CARDIOVASCULAR: Normal heart size. ET tube positioned 3.7 cm above the tracheal ryder. Right IJ multi lumen central venous catheter again noted. OSSEOUS STRUCTURES: No significant abnormalities. VISUALIZED UPPER ABDOMEN: Normal. OTHER FINDINGS: None. IMPRESSION: Bibasilar subsegmental atelectasis. ET tube and right IJ central venous catheter unchanged.
[2018-03-19] MEDS: Linezolid 600 mg in D5W 300 ml 600 MG/300 ML BAG IVPB SCH ×2 (09:43→21:51)
--- NOTE | 2018-03-19 10:42 | CP.PCM.PN ---
Subjective - Date & Time of Evaluation Date of Evaluation: 03/19/18 Time of Evaluation: 07:15 - Subjective Subjective: Endocrinology progress note: Patient seen and examined at bedside. Patient is currently on pressor support and intubated. 12 Point ROS limited 2/2 intubation. Objective - Vital Signs/Intake and Output Vital Signs (last 24 hours): Temp Pulse Resp BP Pulse Ox 32 F L 62 18 102/52 L 100 03/19/18 04:00 03/19/18 06:00 03/18/18 22:00 03/19/18 09:43 03/19/18 05:00 Intake and Output: 03/19/18 03/19/18 06:59 18:59 Intake Total 3307.0 108 Output Total 500 Balance 2807.0 108 - Medications Medications: Current Medications Dextrose (Dextrose 50% Inj) 0 ml IV STAT PRN; Protocol PRN Reason: Hypoglycemia Protocol Heparin Sodium (Porcine) (Heparin) 5,000 units SC Q8 GABE PRN Reason: Protocol Last Admin: 03/19/18 05:10 Dose: 5,000 units Dextrose (Dextrose 5% In Water 1000 Ml) 1,000 mls @ 0 mls/hr IV .Q0M PRN; Protocol; Per Protocol PRN Reason: Hypoglycemia Protocol NOREPINEPHRINE BIT/0.9 % NACL (Levophed 4 Mg/ 250 Ml Ns Premixed) 4 mg in 250 mls @ 15 mls/hr IV .[id number] PRN; Protocol; 4 MCG/MIN PRN Reason: TITRATE PER MD ORDER Last Titration: 03/19/18 10:13 Dose: 8 mcg/min, 30 mls/hr Propofol (Diprivan) 1,000 mg in 100 mls @ 1.817 mls/hr IV .Q24H PRN; Protocol; 5 MCG/KG/MIN PRN Reason: TITRATE PER MD ORDER Last Titration: 03/19/18 09:25 Dose: 0 mcg/kg/min, 0 mls/hr Aztreonam (Azactam 1 Gm) 100 mls @ 100 mls/hr IVPB Q8 GABE PRN Reason: Protocol Stop: 03/23/18 14:31 Last Admin: 03/19/18 05:13 Dose: 100 mls/hr Amiodarone HCl/Dextrose (Nexterone 360 Mg In D5w 200 Ml (Premix)) 360 mg in 200 mls @ 16.667 mls/hr IV .Q12H GABE; 0.5 MG/MIN PRN Reason: Protocol Last Admin: 03/19/18 07:07 Dose: 16.667 mls/hr Insulin Human Regular 100 (units/ Sodium Chloride) 100 mls @ 4 mls/hr IV .Q24H PRN; Protocol; 4 UNITS/HR PRN Reason: TITRATE PER MD ORDER Last Titration: 03/19/18 06:30 Dose: 1.5 units/hr, 1.5 mls/hr Linezolid (Zyvox 600mg/300ml D5w) 600 mg in 300 mls @ 200 mls/hr IVPB Q12 GABE PRN Reason: Protocol Stop: 03/25/18 22:01 Last Admin: 03/19/18 09:43 Dose: 200 mls/hr Dextrose/Sodium Chloride (Dextrose 5%/0.45% Ns 1000 Ml) 1,000 mls @ 100 mls/hr IV .Q10H GABE Last Admin: 03/19/18 01:50 Dose: 100 mls/hr Phenylephrine HCl 40 mg/ (Sodium Chloride) 254 mls @ 38.1 mls/hr IV .Q6H40M PRN ; Protocol; 100 MCG/MIN PRN Reason: TITRATE PER MD ORDER Vasopressin 20 units/ Sodium (Chloride) 101 mls @ 9.09 mls/hr IV .Q11H7M GABE; 0.03 U/MIN PRN Reason: Protocol Last Admin: 03/19/18 09:43 Dose: 9.09 mls/hr Levalbuterol HCl (Xopenex) 1.25 mg IH [id number] GABE Last Admin: 03/19/18 07:23 Dose: 1.25 mg Methylprednisolone (Solu-Medrol) 40 mg IVP Q8 GABE Last Admin: 03/19/18 05:08 Dose: 40 mg Pantoprazole Sodium (Protonix Inj) 40 mg IVP DAILY GABE Last Admin: 03/19/18 09:44 Dose: 40 mg - Labs Labs: 03/19/18 05:45 03/19/18 05:45 PT 13.1 SECONDS (9.4-12.5) H 03/18/18 10:15 INR 1.14 03/18/18 10:15 APTT 23.7 Seconds (25.1-36.5) L 03/18/18 10:15 - Head Exam Head Exam: ATRAUMATIC, NORMOCEPHALIC - ENT Exam ENT Exam: Mucous Membranes Moist - Respiratory Exam Respiratory Exam: Clear to Ausculation Bilateral. absent: Wheezes - Cardiovascular Exam Cardiovascular Exam: +S1, +S2 - GI/Abdominal Exam GI & Abdominal Exam: Soft. 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 Patient also presenting with marked hyperglycemic accelerations. N.p.o. D/arlene insulin drip, added basal insulin with Levemir 20units STAT and 20 units BID scheduled Replete electrolytes as needed Continue with fingersticks and serial CMP is Continue medical care in the ICU Antibiotics as per ID Case and plan discussed in detail with Dr De La Rosa.
[2018-03-19] MEDS ORDERED: Insulin Detemir 100 units/ml Vial (Levemir) SC STA (11:05)
[2018-03-19 11:51] LABS: VENOUS BLOOD GAS BASE EXCESS 2.4 mmol/L (0.0-2.0); VENOUS BLOOD GAS PO2 48 mm/Hg (30-55); VENOUS BLOOD PH 7.28 (7.32-7.43)
[2018-03-19 12:03] LABS: BLOOD UREA NITROGEN 33 mg/dL (7-21); CALCIUM 8.3 mg/dL (8.4-10.5); GFR AFRICAN-AMERICAN > 60; GFR NON-AFRICAN AMERICAN > 60
--- NOTE | 2018-03-19 12:34 | CON ---
Copied To: Venancio Mcginnis MD Attending MD: Venancio Mcginnis MD DATE: 03/19/2018 CARDIOLOGY CONSULTATION HISTORY OF PRESENT ILLNESS: The patient is a 58-year-old woman who presented with respiratory distress, followed by a cardiopulmonary arrest. Patient is currently intubated in the ICU. Currently, the patient is on a ventilator. History is from her family. The patient suffers from advanced myotonic dystrophy with COPD and chronic respiratory insufficiency. No previous cardiac history noted. REVIEW OF SYSTEMS: Unavailable. PHYSICAL EXAMINATION: VITAL SIGNS: Blood pressure 102/52, heart rates in the 80s. NECK: Negative JVD. LUNGS: Bilateral rhonchi. HEART: S1, S2. EXTREMITIES: Without edema. LABORATORY DATA AND IMAGING: EKG shows no acute changes. Hemoglobin is 11.9, WBC is 19.9. Chemistries, troponins are mildly elevated, but on decreasing trend. IMPRESSION: 1. Acute respiratory distress. 2. Cardiopulmonary arrest secondary to respiratory arrest. 3. Ventricular tachycardia secondary to hypoxemia. 4. Elevated troponin secondary to cardiopulmonary arrest. 5. Advance myotonic dystrophy. 6. Chronic obstructive pulmonary disease. PLAN: Given these findings, the patient's initial cardiopulmonary compromise is pulmonary in nature. Echocardiogram reveals preserved LV function. Given these findings, the patient is hemodynamically stable on a ventilator. No acute cardiac intervention is necessary at this time. Venancio Mcginnis MD
--- NOTE | 2018-03-19 12:36 | CP.PCM.CON ---
History of Present Illness - History of Present Illness History of Present Illness: 58 year old female with PMH of myotonic dystrophy, hypothyroidism, history of tracheostomy and PEG tube placement, S/P ileostomy, Anal cancer S/P resection, history of E. coli urinary tract infection, history of bilateral healthcare- associated pneumonia, HTN, COPD was recently [place] [facility] because of acute bronchitis and the patient did well with medical treatment. She is now back because of severe respiratory distress and the patient eventually went into cardiorespiratory arrest but was rescuscitated in the ED. She is now in the ICU for further management. Full ROS is unobtainable because the patient is intubated. Infectious Diseases consult is requested to further evaluate and manage. Review of Systems - Review of Systems Systems not reviewed;Unavailable: Intubated Past Patient History - Infectious Disease Hx of Infectious Diseases: None - Tetanus Immunizations Tetanus Immunization: Unknown - Past Social History Smoking Status: Never Smoked - CARDIAC Hx Hypertension: No - PULMONARY Hx Chronic Obstructive Pulmonary Disease (COPD): Yes - NEUROLOGICAL Hx Neurological Disorder: No - HEENT Hx HEENT Problems: Yes (pt stated "I need glasses") Hx Cataracts: Yes (bilateral cataract surgery) Other/Comment: removal of macular pocket of right eye/ jaw sx - RENAL Hx Chronic Kidney Disease: No - ENDOCRINE/METABOLIC Hx Diabetes Mellitus Type 2: Yes Hx Hypothyroidism: Yes - HEMATOLOGICAL/ONCOLOGICAL Hx Blood Disorders: Yes Hx Anemia: Yes (blood transfusion) Hx Cancer: Yes (rectal 2012) Hx Chemotherapy: Yes - INTEGUMENTARY Hx Dermatological Problems: No Hx Basil Cell: No Hx Eczema: No Hx Melanoma: No Hx Psoriasis: No Hx Squamous Cell: No Other/Comment: dry skin to feet, multiple surgical scars to abd, multiple small brown skin discoloratins to ble, slight red blanchable dry skin to buttocks, crooked great toes, multiple healed abd surgical scars - MUSCULOSKELETAL/RHEUMATOLOGICAL Hx Falls: Yes (last fall 12/01/17) - GASTROINTESTINAL Hx Gastrointestinal Disorders: Yes (RECTAL CA WAS ON CHEMO,HAD SX,PEG IN AND OUT ) Hx Colostomy: Yes (with reversal) Hx Diverticulitis: Yes Hx Gall Bladder Disease: Yes Other/Comment: fatty liver, colorectal sx, lower gi bleed, peg tube in and out, gastrosotmy 2011, colonoscopy 04/13/15 diverticulosis, hemorrhoids, polyp - GENITOURINARY/GYNECOLOGICAL Hx Reproductive Disorders: No - PSYCHIATRIC Hx Depression: No Hx Emotional Abuse: No Hx Physical Abuse: No Hx Substance Use: No - SURGICAL HISTORY Hx Surgeries: Yes (colostomy reversal) Hx Cholecystectomy: Yes Hx Hysterectomy: Yes (2005) Other/Comment: anterior resection and ileostomy 2011, 10/07/2012 bleeding ileostomy. exp lap, dissection portion of small bowel, dissection of ileostomy - ANESTHESIA Hx Anesthesia Reactions: No Hx Malignant Hyperthermia: No Meds Allergies/Adverse Reactions: Allergies Allergy/AdvReac Type Severity Reaction Status Date / Time Penicillins Allergy Severe ANGIOEDEMA Verified 03/18/18 09:58 - Medications Medications: Current Medications Albuterol/Ipratropium (Duoneb 3 Mg/0.5 Mg (3 Ml) Ud) 3 ml IH Q6 PRN PRN Reason: Shortness of Breath Dextrose (Dextrose 50% Inj) 0 ml IV STAT PRN; Protocol PRN Reason: Hypoglycemia Protocol Heparin Sodium (Porcine) (Heparin) 5,000 units SC Q8 GABE PRN Reason: Protocol Dextrose (Dextrose 5% In Water 1000 Ml) 1,000 mls @ 0 mls/hr IV .Q0M PRN; Protocol; Per Protocol PRN Reason: Hypoglycemia Protocol NOREPINEPHRINE BIT/0.9 % NACL (Levophed 4 Mg/ 250 Ml Ns Premixed) 4 mg in 250 mls @ 15 mls/hr IV .[id number] PRN; Protocol; 4 MCG/MIN PRN Reason: TITRATE PER MD ORDER Last Admin: 03/18/18 20:00 Dose: 16 mcg/min, 60 mls/hr Sodium Chloride (Sodium Chloride 0.9%) 1,000 mls @ 100 mls/hr IV .Q10H GABE Last Admin: 03/18/18 15:53 Dose: 100 mls/hr Propofol (Diprivan) 1,000 mg in 100 mls @ 1.817 mls/hr IV .Q24H PRN; Protocol; 5 MCG/KG/MIN PRN Reason: TITRATE PER MD ORDER Aztreonam (Azactam 1 Gm) 100 mls @ 100 mls/hr IVPB Q8 GABE PRN Reason: Protocol Stop: 03/23/18 14:31 Last Admin: 03/18/18 14:00 Dose: 100 mls/hr Amiodarone HCl/Dextrose (Nexterone 360 Mg In D5w 200 Ml (Premix)) 360 mg in 200 mls @ 16.667 mls/hr IV .Q12H GABE; 0.5 MG/MIN PRN Reason: Protocol Last Admin: 03/18/18 19:00 Dose: 16.667 mls/hr Insulin Human Regular 100 (units/ Sodium Chloride) 100 mls @ 4 mls/hr IV .Q24H PRN; Protocol; 4 UNITS/HR PRN Reason: TITRATE PER MD ORDER Linezolid (Zyvox 600mg/300ml D5w) 600 mg in 300 mls @ 200 mls/hr IVPB Q12 GABE PRN Reason: Protocol Stop: 03/25/18 22:01 Methylprednisolone (Solu-Medrol) 40 mg IVP Q8 GABE Last Admin: 03/18/18 15:48 Dose: 40 mg Pantoprazole Sodium (Protonix Inj) 40 mg IVP DAILY [facility] Last Admin: 03/18/18 15:48 Dose: 40 mg Physical Exam - Constitutional Appears: Chronically Ill, Other (intubated, not responsive) - Head Exam Head Exam: NORMAL INSPECTION - ENT Exam Additional comments: ET tube in place - Respiratory Exam Respiratory Exam: Decreased Breath Sounds - Cardiovascular Exam Cardiovascular Exam: +S1, +S2 - GI/Abdominal Exam GI & Abdominal Exam: Soft. absent: Tenderness Results - Vital Signs Recent Vital Signs: Last Vital Signs Temp 33 F L 03/18/18 20:00 Pulse 74 03/18/18 20:04 Resp 18 03/18/18 15:28 BP 115/59 L 03/18/18 20:04 Pulse Ox 100 03/18/18 20:04 - Labs Result Diagrams: 03/19/18 05:45 03/19/18 11:48 Labs: Laboratory Results - last 24 hr 03/18/18 03/18/18 03/18/18 14:50 15:39 15:40 WBC RBC Hgb Hct MCV MCH MCHC RDW Plt Count MPV Gran % Lymph % (Auto) Ida % (Auto) Eos % (Auto) Baso % (Auto) Gran # Lymph # (Auto) Ida # (Auto) Eos # (Auto) Baso # (Auto) Neutrophils % (Manual) Band Neutrophils % Lymphocytes % (Manual) Monocytes % (Manual) Platelet Evaluation Hypochromasia Anisocytosis (manual) pCO2 32 L pO2 173.0 H 64 H HCO3 19.8 L ABG pH 7.40 ABG Total CO2 20.8 L ABG O2 Saturation 98.4 H ABG Base Excess -4.0 L ABG Potassium 3.4 L VBG pH 7.29 L VBG pCO2 53.0 VBG HCO3 25.5 VBG Total CO2 27.1 VBG O2 Sat (Calc) 93.1 H VBG Base Excess -1.9 L VBG Potassium 4.1 Sodium 144.0 143.0 Chloride 105.0 100.0 Glucose 685 H* > 750 H* Lactate 2.9 H 3.3 H Mechanical Rate 18 FiO2 100.0 21.0 Tidal Volume 400 PEEP 5 Potassium Carbon Dioxide Anion Gap BUN Creatinine Est GFR ( Amer) Est GFR (Non-Af Amer) POC Glucose (mg/dL) > 500 H* Random Glucose Calcium Magnesium Total Bilirubin AST ALT Alkaline Phosphatase Troponin I Total Protein Albumin Globulin Albumin/Globulin Ratio Arterial Blood Potassium 3.4 L Venous Blood Potassium 4.1 Blood Type Antibody Screen BBK History Checked 03/18/18 03/18/18 03/18/18 15:41 15:41 15:41 WBC 23.1 H D RBC 4.07 Hgb 11.6 L D Hct 39.6 MCV 97.3 MCH 28.5 MCHC 29.3 L RDW 14.9 H Plt Count 301 MPV 12.5 H Gran % 95.7 H Lymph % (Auto) 1.3 L Ida % (Auto) 2.9 Eos % (Auto) 0.0 L Baso % (Auto) 0.1 Gran # 22.06 H Lymph # (Auto) 0.3 L Ida # (Auto) 0.7 H Eos # (Auto) 0.0 Baso # (Auto) 0.02 Neutrophils % (Manual) 93 H Band Neutrophils % 4 H Lymphocytes % (Manual) 2 L Monocytes % (Manual) 1 Platelet Evaluation Normal Hypochromasia Slight Anisocytosis (manual) Slight pCO2 pO2 HCO3 ABG pH ABG Total CO2 ABG O2 Saturation ABG Base Excess ABG Potassium VBG pH VBG pCO2 VBG HCO3 VBG Total CO2 VBG O2 Sat (Calc) VBG Base Excess VBG Potassium Sodium 145 Chloride 99 Glucose Lactate Mechanical Rate FiO2 Tidal Volume PEEP Potassium 4.2 Carbon Dioxide 25 Anion Gap 25 H BUN 45 H Creatinine 1.1 Est GFR ( Amer) > 60 Est GFR (Non-Af Amer) 51 POC Glucose (mg/dL) Random Glucose 732 H* D Calcium 8.2 L Magnesium Total Bilirubin 0.9 AST 4645 H ALT 2235 H Alkaline Phosphatase 126 D Troponin I 0.14 H* D Total Protein 5.2 L Albumin 2.8 L Globulin 2.3 Albumin/Globulin Ratio 1.2 Arterial Blood Potassium Venous Blood Potassium Blood Type A NEGATIVE Antibody Screen Negative BBK History Checked Patient has bt 03/18/18 03/18/18 03/18/18 15:41 16:15 16:17 WBC RBC Hgb Hct MCV MCH MCHC RDW Plt Count MPV Gran % Lymph % (Auto) Ida % (Auto) Eos % (Auto) Baso % (Auto) Gran # Lymph # (Auto) Ida # (Auto) Eos # (Auto) Baso # (Auto) Neutrophils % (Manual) Band Neutrophils % Lymphocytes % (Manual) Monocytes % (Manual) Platelet Evaluation Hypochromasia Anisocytosis (manual) pCO2 pO2 HCO3 ABG pH ABG Total CO2 ABG O2 Saturation ABG Base Excess ABG Potassium VBG pH VBG pCO2 VBG HCO3 VBG Total CO2 VBG O2 Sat (Calc) VBG Base Excess VBG Potassium Sodium Chloride Glucose Lactate Mechanical Rate FiO2 Tidal Volume PEEP Potassium Carbon Dioxide Anion Gap BUN Creatinine Est GFR ( Amer) Est GFR (Non-Af Amer) POC Glucose (mg/dL) > 500 H* > 500 H* Random Glucose Calcium Magnesium 2.9 H Total Bilirubin AST ALT Alkaline Phosphatase Troponin I Total Protein Albumin Globulin Albumin/Globulin Ratio Arterial Blood Potassium Venous Blood Potassium Blood Type Antibody Screen BBK History Checked 03/18/18 03/18/18 03/18/18 17:31 18:41 19:44 WBC RBC Hgb Hct MCV MCH MCHC RDW Plt Count MPV Gran % Lymph % (Auto) Ida % (Auto) Eos % (Auto) Baso % (Auto) Gran # Lymph # (Auto) Ida # (Auto) Eos # (Auto) Baso # (Auto) Neutrophils % (Manual) Band Neutrophils % Lymphocytes % (Manual) Monocytes % (Manual) Platelet Evaluation Hypochromasia Anisocytosis (manual) pCO2 pO2 HCO3 ABG pH ABG Total CO2 ABG O2 Saturation ABG Base Excess ABG Potassium VBG pH VBG pCO2 VBG HCO3 VBG Total CO2 VBG O2 Sat (Calc) VBG Base Excess VBG Potassium Sodium Chloride Glucose Lactate Mechanical Rate FiO2 Tidal Volume PEEP Potassium Carbon Dioxide Anion Gap BUN Creatinine Est GFR ( Amer) Est GFR (Non-Af Amer) POC Glucose (mg/dL) > 500 H* > 500 H* > 500 H* Random Glucose Calcium Magnesium Total Bilirubin AST ALT Alkaline Phosphatase Troponin I Total Protein Albumin Globulin Albumin/Globulin Ratio Arterial Blood Potassium Venous Blood Potassium Blood Type Antibody Screen BBK History Checked 03/18/18 20:22 WBC RBC Hgb Hct MCV MCH MCHC RDW Plt Count MPV Gran % Lymph % (Auto) Ida % (Auto) Eos % (Auto) Baso % (Auto) Gran # Lymph # (Auto) Ida # (Auto) Eos # (Auto) Baso # (Auto) Neutrophils % (Manual) Band Neutrophils % Lymphocytes % (Manual) Monocytes % (Manual) Platelet Evaluation Hypochromasia Anisocytosis (manual) pCO2 pO2 HCO3 ABG pH ABG Total CO2 ABG O2 Saturation ABG Base Excess ABG Potassium VBG pH VBG pCO2 VBG HCO3 VBG Total CO2 VBG O2 Sat (Calc) VBG Base Excess VBG Potassium Sodium Chloride Glucose Lactate Mechanical Rate FiO2 Tidal Volume PEEP Potassium Carbon Dioxide Anion Gap BUN Creatinine Est GFR ( Amer) Est GFR (Non-Af Amer) POC Glucose (mg/dL) > 500 H* Random Glucose Calcium Magnesium Total Bilirubin AST ALT Alkaline Phosphatase Troponin I Total Protein Albumin Globulin Albumin/Globulin Ratio Arterial Blood Potassium Venous Blood Potassium Blood Type Antibody Screen BBK History Checked Assessment & Plan - Assessment and Plan (Free Text) Plan: Assessment systemic inflammatoruy response syndrome, consider severe sepsis with VDRF due to HCAP or urinary tract infection history of acute bronchitis history of asymptomatic bacteriuria with gram negative bacilli history of sepsis secondary to E. coli urinary tract infection, bilateral healthcare-associated pneumonia history of myotonic dystrophy hypothyroidism history of tracheostomy and PEG tube placement S/P ileostomy Anal cancer S/P resection Plan started patient on Zyvox, Azactam and Doxycycline pending blood, sputum cx, urine cx; will check PCT; reviewed CXR will monitor clinically overall prognosis is poor
--- NOTE | 2018-03-19 13:44 | PN ---
Copied To: Tom Contreras DO Attending MD: Tom Contreras DO DATE: 03/19/2018 SUBJECTIVE: I saw Cyndi in the Intensive Care Unit. She is still on the ventilator. I understood they tried to do a CT angio and she coded. She is back on the ventilator and she is on respiratory failure, sepsis, UTI and she has a history of myotonic dystrophy. MEDICATIONS: She is on Azactam, dextrose, Diprivan, heparin, insulin, norepinephrine, amiodarone, phenylephrine, Protonix, Solu-Medrol 40 every 8 hours, vasopressin, Xopenex and Zyvox. PHYSICAL EXAMINATION: VITAL SIGNS: She has a 32 temperature rectally, pulse is 51, 133/93 blood pressure, 100% O2 sat on mechanical ventilator. HEENT: Head is atraumatic, normocephalic. HEART: Regular rate. LUNGS: Decreased breath sounds. Poor inspiration from the ventilator. ABDOMEN: Soft. EXTREMITIES: No edema. She is really failing. LABORATORY DATA: She has a 19.9 white count, 11.9 hemoglobin, 37.4 hematocrit with 285 platelets. Sodium 146, potassium is 4, BUN 36, creatinine 0.8, GFR greater than 60, sugar is 88, calcium is 8.1, phosphorous 2.3, magnesium 2.2, total bili is 0.3. AST is 4918, ALT is 1827, alk phos 99. Troponin I is 0.3, high. Total protein 5.4. TSH is 1.29. She had UTI. She has consults for Dr. Mcginnis, Dr. Leyva, Dr. De La Rosa and Dr. Glynn. Continue aggressive treatment and care in the Intensive Care Unit. We will check her labs. She is very ill, acute respiratory failure. Tom Contreras DO
--- NOTE | 2018-03-19 15:08 | CP.CCUPN ---
<TaneshaMajor - Last Filed: 03/19/18 14:58> CCU Subjective - Physician Review Events Since Last Encounter (Free Text): Major Almendarez, PGY-1 ICU Progress Note Patient seen and examined at bedside this morning. Levophed titrated down overnight due to stable BP but patient became hypotensive in the morning and is currently on levophed and vasopressin. BP currently in the 100s/50s. Family present at bedside today and discussed goals of care. Hypothermia protocol to end at 6pm today, will start re-warming at that time. Patient not on sedation but continues to be unarousable. 12 point ROS limited due to non responsive state. CCU Objective - Vital Signs / Intake & Output Vital Signs (Last 4 hours): Vital Signs Temp 03/19/18 12:00 91.4 F L Intake and Output (Last 8hrs): Intake & Output 03/18/18 03/19/18 03/19/18 22:59 06:59 14:59 Intake Total 3469 3163.0 287 Output Total 1220 500 Balance 2249 2663.0 287 Intake: IV 3469 3163.0 287 Left Antecubital 700 Left Forearm 2200 Right Antecubital 274 Right Femoral 2594 Oral 0 Output: Urine 1220 500 Urethral (Carrera) 1220 500 Other: # Bowel Movements 2 0 - Physical Exam Head: Positive for: Atraumatic Pupils: Positive for: PERRL, Sluggish Mouth: Positive for: Dry Nose (Internal): Positive for: Normal Inspection Respiratory/Chest: Positive for: Clear to Auscultation. Negative for: Wheezes Cardiovascular: Positive for: Normal S1, S2, Peripheal Pulses Present Abdomen: Negative for: Distention, Guarding Upper Extremity: Positive for: Normal Inspection, NORMAL PULSES Lower Extremity: Positive for: Normal Inspection, NORMAL PULSES Neurological: Positive for: Other (unarousable and non responsive) Psychiatric: Negative for: Alert - Medications Active Medications: Active Medications Generic Name Dose Route Start Last Admin Trade Name Freq PRN Reason Stop Dose Admin Dextrose 0 ml 03/18/18 11:22 Dextrose 50% Inj IV STAT PRN Hypoglycemia Protocol Protocol Heparin Sodium (Porcine) 5,000 units 03/18/18 22:00 03/19/18 13:28 Heparin SC 5,000 units Q8 GABE Administration Protocol Dextrose 1,000 mls @ 0 mls/hr 03/18/18 11:22 Dextrose 5% In Water 1000 Ml IV .Q0M PRN Hypoglycemia Protocol Protocol Per Protocol NOREPINEPHRINE BIT/0.9 % NACL 4 mg in 250 mls @ 15 mls/hr 03/18/18 13:04 14:37 Levophed 4 Mg/ 250 Ml Ns Premixed IV 6.5 mcg/min .[id number] PRN 24.375 mls/hr TITRATE PER MD ORDER Titration Protocol 4 MCG/MIN Propofol 1,000 mg in 100 mls @ 1.817 mls/hr 03/18/18 14:23 03/19/18 09:25 Diprivan IV 0 mcg/kg/min .Q24H PRN 0 mls/hr TITRATE PER MD ORDER Titration Protocol 5 MCG/KG/MIN Aztreonam 100 mls @ 100 mls/hr 03/18/18 14:30 03/19/18 13:28 Azactam 1 Gm IVPB 03/23/18 14:31 100 mls/hr Q8 GABE Administration Protocol Amiodarone HCl/Dextrose 360 mg in 200 mls @ 16.667 mls/hr 03/18/18 20:15 07:07 Nexterone 360 Mg In D5w 200 Ml (Premix) IV 16.667 mls/hr .Q12H GABE Administration Protocol 0.5 MG/MIN Linezolid 600 mg in 300 mls @ 200 mls/hr 03/18/18 22:00 03/19/18 09:43 Zyvox 600mg/300ml D5w IVPB 03/25/18 22:01 200 mls/hr Q12 GABE Administration Protocol Dextrose/Sodium Chloride 1,000 mls @ 100 mls/hr 03/19/18 01:45 03/19/18 01:50 Dextrose 5%/0.45% Ns 1000 Ml IV 100 mls/hr .Q10H GABE Administration Phenylephrine HCl 40 mg/ 254 mls @ 38.1 mls/hr 03/19/18 07:41 Sodium Chloride IV .Q6H40M PRN TITRATE PER MD ORDER Protocol 100 MCG/MIN Vasopressin 20 units/ Sodium 101 mls @ 9.09 mls/hr 03/19/18 07:45 03/19/18 09 :43 Chloride IV 9.09 mls/hr .Q11H7M GABE Administration Protocol 0.03 U/MIN Doxycycline Hyclate 100 mg/ 100 mls @ 100 mls/hr 03/19/18 12:45 03/19/18 14: 05 Sodium Chloride IVPB 100 mls/hr Q12 GABE Administration Protocol Insulin Detemir 20 unit 03/20/18 08:00 Levemir SC Q12 GABE Levalbuterol HCl 1.25 mg 03/19/18 08:00 03/19/18 13:08 Xopenex IH 1.25 mg [id number] GABE Administration Methylprednisolone 40 mg 03/18/18 14:00 03/19/18 13:34 Solu-Medrol IVP 40 mg Q8 GABE Administration Pantoprazole Sodium 40 mg 03/18/18 14:45 03/19/18 09:44 Protonix Inj IVP 40 mg DAILY GABE Administration - Patient Studies Lab Studies: Lab Studies 03/19/18 03/19/18 03/19/18 Range/Units 13:27 12:36 11:48 WBC (4.5-11.0) 10^3/ul RBC (3.5-6.1) 10^6/uL Hgb (12.0-16.0) g/dL Hct (36.0-48.0) % MCV (80.0-105.0) fl MCH (25.0-35.0) pg MCHC (31.0-37.0) g/dl RDW (11.5-14.5) % Plt Count (120.0-450.0) 10^3/uL MPV (7.0-11.0) fl Gran % (50.0-68.0) % Lymph % (Auto) (22.0-35.0) % [place] % (Auto) (1.0-6.0) % Eos % (Auto) (1.5-5.0) % Baso % (Auto) (0.0-3.0) % Gran # (1.4-6.5) Lymph # (Auto) (1.2-3.4) [place] # (Auto) (0.1-0.6) Eos # (Auto) (0.0-0.7) Baso # (Auto) (0.0-2.0) K/mm3 Neutrophils % (Manual) (50.0-70.0) % Band Neutrophils % (0-2) % Lymphocytes % (Manual) (22.0-35.0) % Monocytes % (Manual) (1.0-6.0) % Platelet Evaluation (NORMAL) Hypochromasia Anisocytosis (manual) pCO2 (35-45) mm/Hg pO2 48 (80-100) mm/Hg HCO3 (21-28) mmol/L ABG pH (7.35-7.45) ABG Total CO2 (22-28) mmol.L ABG O2 Saturation (95-98) % ABG O2 Content (15-23) ML/dl ABG Base Excess (-2.0-3.0) mmol/L ABG Hemoglobin (11.7-17.4) g/dL ABG Carboxyhemoglobin (0.5-1.5) % POC ABG HHb (Measured) (0-5) % ABG Methemoglobin (0.0-3.0) % ABG O2 Capacity (16-24) mL/dl ABG Potassium (3.6-5.2) mmol/L VBG pH 7.28 L (7.32-7.43) VBG pCO2 66.0 H* (40-60) VBG HCO3 31.0 H (21-28) mmol/l VBG Total CO2 33.0 H (22-28) mmol.L VBG O2 Sat (Calc) 82.8 H (40-65) % VBG Base Excess 2.4 H (0.0-2.0) mmol/L VBG Potassium 3.6 (3.6-5.2) mmol/L Hgb O2 Saturation (95.0-98.0) % Sodium 141.0 (132-148) mmol/L Chloride 102.0 (98-107) mmol/L Glucose 103 (65-105) mg/dl Lactate 3.8 H (0.7-2.1) mmol/L Mechanical Rate FiO2 21.0 % Tidal Volume PEEP Potassium (3.6-5.0) mmol/L Carbon Dioxide (21-33) mmol/L Anion Gap (10-20) BUN (7-21) mg/dL Creatinine (0.7-1.2) mg/dl Est GFR ( Amer) Est GFR (Non-Af Amer) POC Glucose (mg/dL) 97 92 (65-110) mg/dL Random Glucose (70-110) mg/dL Hemoglobin A1c (4.2-6.5) % Lactic Acid (0.7-2.1) mmol/L Calcium (8.4-10.5) mg/dL Phosphorus (2.5-4.5) mg/dL Magnesium (1.7-2.2) mg/dL Total Bilirubin (0.2-1.3) mg/dL AST (14-36) U/L ALT (7-56) U/L Alkaline Phosphatase (38-126) U/L Troponin I ng/mL Total Protein (5.8-8.3) g/dL Albumin (3.0-4.8) g/dL Globulin gm/dL Albumin/Globulin Ratio (1.1-1.8) Triglycerides (35-160) mg/dL Cholesterol (130-200) mg/dL LDL Cholesterol Direct (0-129) mg/dL HDL Cholesterol (29-60) mg/dL Free T4 (0.78-2.19) ng/dL Thyroxine (T4) (5.5-11.0) ug/dL TSH 3rd Generation (0.46-4.68) mIU/mL Arterial Blood Potassium (3.6-5.2) mmol/L Venous Blood Potassium 3.6 (3.6-5.2) mmol/L Blood Type Antibody Screen BBK History Checked 03/19/18 03/19/18 03/19/18 Range/Units 11:48 11:43 11:41 WBC (4.5-11.0) 10^3/ul RBC (3.5-6.1) 10^6/uL Hgb (12.0-16.0) g/dL Hct (36.0-48.0) % MCV (80.0-105.0) fl MCH (25.0-35.0) pg MCHC (31.0-37.0) g/dl RDW (11.5-14.5) % Plt Count (120.0-450.0) 10^3/uL MPV (7.0-11.0) fl Gran % (50.0-68.0) % Lymph % (Auto) (22.0-35.0) % [place] % (Auto) (1.0-6.0) % Eos % (Auto) (1.5-5.0) % Baso % (Auto) (0.0-3.0) % Gran # (1.4-6.5) Lymph # (Auto) (1.2-3.4) [place] # (Auto) (0.1-0.6) Eos # (Auto) (0.0-0.7) Baso # (Auto) (0.0-2.0) K/mm3 Neutrophils % (Manual) (50.0-70.0) % Band Neutrophils % (0-2) % Lymphocytes % (Manual) (22.0-35.0) % Monocytes % (Manual) (1.0-6.0) % Platelet Evaluation (NORMAL) Hypochromasia Anisocytosis (manual) pCO2 (35-45) mm/Hg pO2 (80-100) mm/Hg HCO3 (21-28) mmol/L ABG pH (7.35-7.45) ABG Total CO2 (22-28) mmol.L ABG O2 Saturation (95-98) % ABG O2 Content (15-23) ML/dl ABG Base Excess (-2.0-3.0) mmol/L ABG Hemoglobin (11.7-17.4) g/dL ABG Carboxyhemoglobin (0.5-1.5) % POC ABG HHb (Measured) (0-5) % ABG Methemoglobin (0.0-3.0) % ABG O2 Capacity (16-24) mL/dl ABG Potassium (3.6-5.2) mmol/L VBG pH (7.32-7.43) VBG pCO2 (40-60) VBG HCO3 (21-28) mmol/l VBG Total CO2 (22-28) mmol.L VBG O2 Sat (Calc) (40-65) % VBG Base Excess (0.0-2.0) mmol/L VBG Potassium (3.6-5.2) mmol/L Hgb O2 Saturation (95.0-98.0) % Sodium 144 (132-148) mmol/L Chloride 101 (98-107) mmol/L Glucose (65-105) mg/dl Lactate (0.7-2.1) mmol/L Mechanical Rate FiO2 % Tidal Volume PEEP Potassium 3.8 (3.6-5.0) mmol/L Carbon Dioxide 33 (21-33) mmol/L Anion Gap 13 (10-20) BUN 33 H (7-21) mg/dL Creatinine 0.7 (0.7-1.2) mg/dl Est GFR ( Amer) > 60 Est GFR (Non-Af Amer) > 60 POC Glucose (mg/dL) 95 403 H* (65-110) mg/dL Random Glucose 111 H (70-110) mg/dL Hemoglobin A1c (4.2-6.5) % Lactic Acid (0.7-2.1) mmol/L Calcium 8.3 L (8.4-10.5) mg/dL Phosphorus (2.5-4.5) mg/dL Magnesium (1.7-2.2) mg/dL Total Bilirubin (0.2-1.3) mg/dL AST (14-36) U/L ALT (7-56) U/L Alkaline Phosphatase (38-126) U/L Troponin I ng/mL Total Protein (5.8-8.3) g/dL Albumin (3.0-4.8) g/dL Globulin gm/dL Albumin/Globulin Ratio (1.1-1.8) Triglycerides (35-160) mg/dL Cholesterol (130-200) mg/dL LDL Cholesterol Direct (0-129) mg/dL HDL Cholesterol (29-60) mg/dL Free T4 (0.78-2.19) ng/dL Thyroxine (T4) (5.5-11.0) ug/dL TSH 3rd Generation (0.46-4.68) mIU/mL Arterial Blood Potassium (3.6-5.2) mmol/L Venous Blood Potassium (3.6-5.2) mmol/L Blood Type Antibody Screen BBK History Checked 03/19/18 03/19/18 03/19/18 Range/Units 10:40 09:44 08:49 WBC (4.5-11.0) 10^3/ul RBC (3.5-6.1) 10^6/uL Hgb (12.0-16.0) g/dL Hct (36.0-48.0) % MCV (80.0-105.0) fl MCH (25.0-35.0) pg MCHC (31.0-37.0) g/dl RDW (11.5-14.5) % Plt Count (120.0-450.0) 10^3/uL MPV (7.0-11.0) fl Gran % (50.0-68.0) % Lymph % (Auto) (22.0-35.0) % [place] % (Auto) (1.0-6.0) % Eos % (Auto) (1.5-5.0) % Baso % (Auto) (0.0-3.0) % Gran # (1.4-6.5) Lymph # (Auto) (1.2-3.4) [place] # (Auto) (0.1-0.6) Eos # (Auto) (0.0-0.7) Baso # (Auto) (0.0-2.0) K/mm3 Neutrophils % (Manual) (50.0-70.0) % Band Neutrophils % (0-2) % Lymphocytes % (Manual) (22.0-35.0) % Monocytes % (Manual) (1.0-6.0) % Platelet Evaluation (NORMAL) Hypochromasia Anisocytosis (manual) pCO2 (35-45) mm/Hg pO2 (80-100) mm/Hg HCO3 (21-28) mmol/L ABG pH (7.35-7.45) ABG Total CO2 (22-28) mmol.L ABG O2 Saturation (95-98) % ABG O2 Content (15-23) ML/dl ABG Base Excess (-2.0-3.0) mmol/L ABG Hemoglobin (11.7-17.4) g/dL ABG Carboxyhemoglobin (0.5-1.5) % POC ABG HHb (Measured) (0-5) % ABG Methemoglobin (0.0-3.0) % ABG O2 Capacity (16-24) mL/dl ABG Potassium (3.6-5.2) mmol/L VBG pH (7.32-7.43) VBG pCO2 (40-60) VBG HCO3 (21-28) mmol/l VBG Total CO2 (22-28) mmol.L VBG O2 Sat (Calc) (40-65) % VBG Base Excess (0.0-2.0) mmol/L VBG Potassium (3.6-5.2) mmol/L Hgb O2 Saturation (95.0-98.0) % Sodium (132-148) mmol/L Chloride (98-107) mmol/L Glucose (65-105) mg/dl Lactate (0.7-2.1) mmol/L Mechanical Rate FiO2 % Tidal Volume PEEP Potassium (3.6-5.0) mmol/L Carbon Dioxide (21-33) mmol/L Anion Gap (10-20) BUN (7-21) mg/dL Creatinine (0.7-1.2) mg/dl Est GFR ( Amer) Est GFR (Non-Af Amer) POC Glucose (mg/dL) 101 80 112 H (65-110) mg/dL Random Glucose (70-110) mg/dL Hemoglobin A1c (4.2-6.5) % Lactic Acid (0.7-2.1) mmol/L Calcium (8.4-10.5) mg/dL Phosphorus (2.5-4.5) mg/dL Magnesium (1.7-2.2) mg/dL Total Bilirubin (0.2-1.3) mg/dL AST (14-36) U/L ALT (7-56) U/L Alkaline Phosphatase (38-126) U/L Troponin I ng/mL Total Protein (5.8-8.3) g/dL Albumin (3.0-4.8) g/dL Globulin gm/dL Albumin/Globulin Ratio (1.1-1.8) Triglycerides (35-160) mg/dL Cholesterol (130-200) mg/dL LDL Cholesterol Direct (0-129) mg/dL HDL Cholesterol (29-60) mg/dL Free T4 (0.78-2.19) ng/dL Thyroxine (T4) (5.5-11.0) ug/dL TSH 3rd Generation (0.46-4.68) mIU/mL Arterial Blood Potassium (3.6-5.2) mmol/L Venous Blood Potassium (3.6-5.2) mmol/L Blood Type Antibody Screen BBK History Checked 03/19/18 03/19/18 03/19/18 Range/Units 07:44 05:46 05:45 WBC (4.5-11.0) 10^3/ul RBC (3.5-6.1) 10^6/uL Hgb (12.0-16.0) g/dL Hct (36.0-48.0) % MCV (80.0-105.0) fl MCH (25.0-35.0) pg MCHC (31.0-37.0) g/dl RDW (11.5-14.5) % Plt Count (120.0-450.0) 10^3/uL MPV (7.0-11.0) fl Gran % (50.0-68.0) % Lymph % (Auto) (22.0-35.0) % [place] % (Auto) (1.0-6.0) % Eos % (Auto) (1.5-5.0) % Baso % (Auto) (0.0-3.0) % Gran # (1.4-6.5) Lymph # (Auto) (1.2-3.4) [place] # (Auto) (0.1-0.6) Eos # (Auto) (0.0-0.7) Baso # (Auto) (0.0-2.0) K/mm3 Neutrophils % (Manual) (50.0-70.0) % Band Neutrophils % (0-2) % Lymphocytes % (Manual) (22.0-35.0) % Monocytes % (Manual) (1.0-6.0) % Platelet Evaluation (NORMAL) Hypochromasia Anisocytosis (manual) pCO2 (35-45) mm/Hg pO2 142 H (80-100) mm/Hg HCO3 (21-28) mmol/L ABG pH (7.35-7.45) ABG Total CO2 (22-28) mmol.L ABG O2 Saturation (95-98) % ABG O2 Content (15-23) ML/dl ABG Base Excess (-2.0-3.0) mmol/L ABG Hemoglobin (11.7-17.4) g/dL ABG Carboxyhemoglobin (0.5-1.5) % POC ABG HHb (Measured) (0-5) % ABG Methemoglobin (0.0-3.0) % ABG O2 Capacity (16-24) mL/dl ABG Potassium (3.6-5.2) mmol/L VBG pH 7.43 (7.32-7.43) VBG pCO2 42.0 (40-60) VBG HCO3 27.9 (21-28) mmol/l VBG Total CO2 29.2 H (22-28) mmol.L VBG O2 Sat (Calc) 98.1 H (40-65) % VBG Base Excess 3.2 H (0.0-2.0) mmol/L VBG Potassium 3.9 (3.6-5.2) mmol/L Hgb O2 Saturation (95.0-98.0) % Sodium 143.0 (132-148) mmol/L Chloride 110.0 H (98-107) mmol/L Glucose 82 (65-105) mg/dl Lactate 4.5 H* (0.7-2.1) mmol/L Mechanical Rate FiO2 21.0 % Tidal Volume PEEP Potassium (3.6-5.0) mmol/L Carbon Dioxide (21-33) mmol/L Anion Gap (10-20) BUN (7-21) mg/dL Creatinine (0.7-1.2) mg/dl Est GFR ( Amer) Est GFR (Non-Af Amer) POC Glucose (mg/dL) 87 (65-110) mg/dL Random Glucose (70-110) mg/dL Hemoglobin A1c 9.7 H D (4.2-6.5) % Lactic Acid (0.7-2.1) mmol/L Calcium (8.4-10.5) mg/dL Phosphorus (2.5-4.5) mg/dL Magnesium (1.7-2.2) mg/dL Total Bilirubin (0.2-1.3) mg/dL AST (14-36) U/L ALT (7-56) U/L Alkaline Phosphatase (38-126) U/L Troponin I ng/mL Total Protein (5.8-8.3) g/dL Albumin (3.0-4.8) g/dL Globulin gm/dL Albumin/Globulin Ratio (1.1-1.8) Triglycerides (35-160) mg/dL Cholesterol (130-200) mg/dL LDL Cholesterol Direct (0-129) mg/dL HDL Cholesterol (29-60) mg/dL Free T4 (0.78-2.19) ng/dL Thyroxine (T4) (5.5-11.0) ug/dL TSH 3rd Generation (0.46-4.68) mIU/mL Arterial Blood Potassium (3.6-5.2) mmol/L Venous Blood Potassium 3.9 (3.6-5.2) mmol/L Blood Type Antibody Screen BBK History Checked 03/19/18 03/19/18 03/19/18 Range/Units 05:45 05:45 05:45 WBC (4.5-11.0) 10^3/ul RBC (3.5-6.1) 10^6/uL Hgb (12.0-16.0) g/dL Hct (36.0-48.0) % MCV (80.0-105.0) fl MCH (25.0-35.0) pg MCHC (31.0-37.0) g/dl RDW (11.5-14.5) % Plt Count (120.0-450.0) 10^3/uL MPV (7.0-11.0) fl Gran % (50.0-68.0) % Lymph % (Auto) (22.0-35.0) % [place] % (Auto) (1.0-6.0) % Eos % (Auto) (1.5-5.0) % Baso % (Auto) (0.0-3.0) % Gran # (1.4-6.5) Lymph # (Auto) (1.2-3.4) [place] # (Auto) (0.1-0.6) Eos # (Auto) (0.0-0.7) Baso # (Auto) (0.0-2.0) K/mm3 Neutrophils % (Manual) (50.0-70.0) % Band Neutrophils % (0-2) % Lymphocytes % (Manual) (22.0-35.0) % Monocytes % (Manual) (1.0-6.0) % Platelet Evaluation (NORMAL) Hypochromasia Anisocytosis (manual) pCO2 (35-45) mm/Hg pO2 (80-100) mm/Hg HCO3 (21-28) mmol/L ABG pH (7.35-7.45) ABG Total CO2 (22-28) mmol.L ABG O2 Saturation (95-98) % ABG O2 Content (15-23) ML/dl ABG Base Excess (-2.0-3.0) mmol/L ABG Hemoglobin (11.7-17.4) g/dL ABG Carboxyhemoglobin (0.5-1.5) % POC ABG HHb (Measured) (0-5) % ABG Methemoglobin (0.0-3.0) % ABG O2 Capacity (16-24) mL/dl ABG Potassium (3.6-5.2) mmol/L VBG pH (7.32-7.43) VBG pCO2 (40-60) VBG HCO3 (21-28) mmol/l VBG Total CO2 (22-28) mmol.L VBG O2 Sat (Calc) (40-65) % VBG Base Excess (0.0-2.0) mmol/L VBG Potassium (3.6-5.2) mmol/L Hgb O2 Saturation (95.0-98.0) % Sodium 146 (132-148) mmol/L Chloride 107 (98-107) mmol/L Glucose (65-105) mg/dl Lactate (0.7-2.1) mmol/L Mechanical Rate FiO2 % Tidal Volume PEEP Potassium 4.0 (3.6-5.0) mmol/L Carbon Dioxide 30 (21-33) mmol/L Anion Gap 13 (10-20) BUN 36 H (7-21) mg/dL Creatinine 0.8 (0.7-1.2) mg/dl Est GFR ( Amer) > 60 Est GFR (Non-Af Amer) > 60 POC Glucose (mg/dL) (65-110) mg/dL Random Glucose 88 (70-110) mg/dL Hemoglobin A1c (4.2-6.5) % Lactic Acid 4.2 H* (0.7-2.1) mmol/L Calcium 8.1 L (8.4-10.5) mg/dL Phosphorus 2.3 L (2.5-4.5) mg/dL Magnesium 2.2 (1.7-2.2) mg/dL Total Bilirubin 0.3 (0.2-1.3) mg/dL AST 4918 H (14-36) U/L ALT 1827 H (7-56) U/L Alkaline Phosphatase 99 (38-126) U/L Troponin I 0.30 H* ng/mL Total Protein 5.4 L (5.8-8.3) g/dL Albumin 2.7 L (3.0-4.8) g/dL Globulin 2.7 gm/dL Albumin/Globulin Ratio 1.0 L (1.1-1.8) Triglycerides 192 H (35-160) mg/dL Cholesterol 97 L (130-200) mg/dL LDL Cholesterol Direct < 30 (0-129) mg/dL HDL Cholesterol 38 (29-60) mg/dL Free T4 1.82 (0.78-2.19) ng/dL Thyroxine (T4) 7.7 (5.5-11.0) ug/dL TSH 3rd Generation 1.29 (0.46-4.68) mIU/mL Arterial Blood Potassium (3.6-5.2) mmol/L Venous Blood Potassium (3.6-5.2) mmol/L Blood Type Antibody Screen BBK History Checked 03/19/18 03/19/18 03/19/18 Range/Units 05:45 05:39 05:18 WBC 19.9 H (4.5-11.0) 10^3/ul RBC 4.12 (3.5-6.1) 10^6/uL Hgb 11.9 L (12.0-16.0) g/dL Hct 37.4 (36.0-48.0) % MCV 90.8 D (80.0-105.0) fl MCH 28.9 (25.0-35.0) pg MCHC 31.8 (31.0-37.0) g/dl RDW 14.6 H (11.5-14.5) % Plt Count 285 (120.0-450.0) 10^3/uL MPV 12.3 H (7.0-11.0) fl Gran % (50.0-68.0) % Lymph % (Auto) (22.0-35.0) % [place] % (Auto) (1.0-6.0) % Eos % (Auto) (1.5-5.0) % Baso % (Auto) (0.0-3.0) % Gran # (1.4-6.5) Lymph # (Auto) (1.2-3.4) [place] # (Auto) (0.1-0.6) Eos # (Auto) (0.0-0.7) Baso # (Auto) (0.0-2.0) K/mm3 Neutrophils % (Manual) (50.0-70.0) % Band Neutrophils % (0-2) % Lymphocytes % (Manual) (22.0-35.0) % Monocytes % (Manual) (1.0-6.0) % Platelet Evaluation (NORMAL) Hypochromasia Anisocytosis (manual) pCO2 46 H (35-45) mm/Hg pO2 113.0 H (80-100) mm/Hg HCO3 27.8 (21-28) mmol/L ABG pH 7.39 (7.35-7.45) ABG Total CO2 29.2 H (22-28) mmol.L ABG O2 Saturation 97.6 (95-98) % ABG O2 Content 16.0 (15-23) ML/dl ABG Base Excess 2.3 (-2.0-3.0) mmol/L ABG Hemoglobin 11.6 L (11.7-17.4) g/dL ABG Carboxyhemoglobin 0.1 L (0.5-1.5) % POC ABG HHb (Measured) 2.4 (0-5) % ABG Methemoglobin 0.7 (0.0-3.0) % ABG O2 Capacity 16.4 (16-24) mL/dl ABG Potassium (3.6-5.2) mmol/L VBG pH (7.32-7.43) VBG pCO2 (40-60) VBG HCO3 (21-28) mmol/l VBG Total CO2 (22-28) mmol.L VBG O2 Sat (Calc) (40-65) % VBG Base Excess (0.0-2.0) mmol/L VBG Potassium (3.6-5.2) mmol/L Hgb O2 Saturation 96.8 (95.0-98.0) % Sodium (132-148) mmol/L Chloride (98-107) mmol/L Glucose (65-105) mg/dl Lactate (0.7-2.1) mmol/L Mechanical Rate FiO2 80.0 % Tidal Volume PEEP Potassium (3.6-5.0) mmol/L Carbon Dioxide (21-33) mmol/L Anion Gap (10-20) BUN (7-21) mg/dL Creatinine (0.7-1.2) mg/dl Est GFR ( Amer) Est GFR (Non-Af Amer) POC Glucose (mg/dL) 77 (65-110) mg/dL Random Glucose (70-110) mg/dL Hemoglobin A1c (4.2-6.5) % Lactic Acid (0.7-2.1) mmol/L Calcium (8.4-10.5) mg/dL Phosphorus (2.5-4.5) mg/dL Magnesium (1.7-2.2) mg/dL Total Bilirubin (0.2-1.3) mg/dL AST (14-36) U/L ALT (7-56) U/L Alkaline Phosphatase (38-126) U/L Troponin I ng/mL Total Protein (5.8-8.3) g/dL Albumin (3.0-4.8) g/dL Globulin gm/dL Albumin/Globulin Ratio (1.1-1.8) Triglycerides (35-160) mg/dL Cholesterol (130-200) mg/dL LDL Cholesterol Direct (0-129) mg/dL HDL Cholesterol (29-60) mg/dL Free T4 (0.78-2.19) ng/dL Thyroxine (T4) (5.5-11.0) ug/dL TSH 3rd Generation (0.46-4.68) mIU/mL Arterial Blood Potassium (3.6-5.2) mmol/L Venous Blood Potassium (3.6-5.2) mmol/L Blood Type Antibody Screen BBK History Checked 03/19/18 03/19/18 03/19/18 Range/Units 04:42 03:56 02:24 WBC (4.5-11.0) 10^3/ul RBC (3.5-6.1) 10^6/uL Hgb (12.0-16.0) g/dL Hct (36.0-48.0) % MCV (80.0-105.0) fl MCH (25.0-35.0) pg MCHC (31.0-37.0) g/dl RDW (11.5-14.5) % Plt Count (120.0-450.0) 10^3/uL MPV (7.0-11.0) fl Gran % (50.0-68.0) % Lymph % (Auto) (22.0-35.0) % [place] % (Auto) (1.0-6.0) % Eos % (Auto) (1.5-5.0) % Baso % (Auto) (0.0-3.0) % Gran # (1.4-6.5) Lymph # (Auto) (1.2-3.4) [place] # (Auto) (0.1-0.6) Eos # (Auto) (0.0-0.7) Baso # (Auto) (0.0-2.0) K/mm3 Neutrophils % (Manual) (50.0-70.0) % Band Neutrophils % (0-2) % Lymphocytes % (Manual) (22.0-35.0) % Monocytes % (Manual) (1.0-6.0) % Platelet Evaluation (NORMAL) Hypochromasia Anisocytosis (manual) pCO2 (35-45) mm/Hg pO2 (80-100) mm/Hg HCO3 (21-28) mmol/L ABG pH (7.35-7.45) ABG Total CO2 (22-28) mmol.L ABG O2 Saturation (95-98) % ABG O2 Content (15-23) ML/dl ABG Base Excess (-2.0-3.0) mmol/L ABG Hemoglobin (11.7-17.4) g/dL ABG Carboxyhemoglobin (0.5-1.5) % POC ABG HHb (Measured) (0-5) % ABG Methemoglobin (0.0-3.0) % ABG O2 Capacity (16-24) mL/dl ABG Potassium (3.6-5.2) mmol/L VBG pH (7.32-7.43) VBG pCO2 (40-60) VBG HCO3 (21-28) mmol/l VBG Total CO2 (22-28) mmol.L VBG O2 Sat (Calc) (40-65) % VBG Base Excess (0.0-2.0) mmol/L VBG Potassium (3.6-5.2) mmol/L Hgb O2 Saturation (95.0-98.0) % Sodium (132-148) mmol/L Chloride (98-107) mmol/L Glucose (65-105) mg/dl Lactate (0.7-2.1) mmol/L Mechanical Rate FiO2 % Tidal Volume PEEP Potassium (3.6-5.0) mmol/L Carbon Dioxide (21-33) mmol/L Anion Gap (10-20) BUN (7-21) mg/dL Creatinine (0.7-1.2) mg/dl Est GFR ( Amer) Est GFR (Non-Af Amer) POC Glucose (mg/dL) 153 H 208 H 242 H (65-110) mg/dL Random Glucose (70-110) mg/dL Hemoglobin A1c (4.2-6.5) % Lactic Acid (0.7-2.1) mmol/L Calcium (8.4-10.5) mg/dL Phosphorus (2.5-4.5) mg/dL Magnesium (1.7-2.2) mg/dL Total Bilirubin (0.2-1.3) mg/dL AST (14-36) U/L ALT (7-56) U/L Alkaline Phosphatase (38-126) U/L Troponin I ng/mL Total Protein (5.8-8.3) g/dL Albumin (3.0-4.8) g/dL Globulin gm/dL Albumin/Globulin Ratio (1.1-1.8) Triglycerides (35-160) mg/dL Cholesterol (130-200) mg/dL LDL Cholesterol Direct (0-129) mg/dL HDL Cholesterol (29-60) mg/dL Free T4 (0.78-2.19) ng/dL Thyroxine (T4) (5.5-11.0) ug/dL TSH 3rd Generation (0.46-4.68) mIU/mL Arterial Blood Potassium (3.6-5.2) mmol/L Venous Blood Potassium (3.6-5.2) mmol/L Blood Type Antibody Screen BBK History Checked 03/19/18 03/19/18 03/19/18 Range/Units 01:25 01:25 01:22 WBC (4.5-11.0) 10^3/ul RBC (3.5-6.1) 10^6/uL Hgb (12.0-16.0) g/dL Hct (36.0-48.0) % MCV (80.0-105.0) fl MCH (25.0-35.0) pg MCHC (31.0-37.0) g/dl RDW (11.5-14.5) % Plt Count (120.0-450.0) 10^3/uL MPV (7.0-11.0) fl Gran % (50.0-68.0) % Lymph % (Auto) (22.0-35.0) % [place] % (Auto) (1.0-6.0) % Eos % (Auto) (1.5-5.0) % Baso % (Auto) (0.0-3.0) % Gran # (1.4-6.5) Lymph # (Auto) (1.2-3.4) [place] # (Auto) (0.1-0.6) Eos # (Auto) (0.0-0.7) Baso # (Auto) (0.0-2.0) K/mm3 Neutrophils % (Manual) (50.0-70.0) % Band Neutrophils % (0-2) % Lymphocytes % (Manual) (22.0-35.0) % Monocytes % (Manual) (1.0-6.0) % Platelet Evaluation (NORMAL) Hypochromasia Anisocytosis (manual) pCO2 (35-45) mm/Hg pO2 (80-100) mm/Hg HCO3 (21-28) mmol/L ABG pH (7.35-7.45) ABG Total CO2 (22-28) mmol.L ABG O2 Saturation (95-98) % ABG O2 Content (15-23) ML/dl ABG Base Excess (-2.0-3.0) mmol/L ABG Hemoglobin (11.7-17.4) g/dL ABG Carboxyhemoglobin (0.5-1.5) % POC ABG HHb (Measured) (0-5) % ABG Methemoglobin (0.0-3.0) % ABG O2 Capacity (16-24) mL/dl ABG Potassium (3.6-5.2) mmol/L VBG pH (7.32-7.43) VBG pCO2 (40-60) VBG HCO3 (21-28) mmol/l VBG Total CO2 (22-28) mmol.L VBG O2 Sat (Calc) (40-65) % VBG Base Excess (0.0-2.0) mmol/L VBG Potassium (3.6-5.2) mmol/L Hgb O2 Saturation (95.0-98.0) % Sodium 149 H (132-148) mmol/L Chloride 107 (98-107) mmol/L Glucose (65-105) mg/dl Lactate (0.7-2.1) mmol/L Mechanical Rate FiO2 % Tidal Volume PEEP Potassium 3.1 L (3.6-5.0) mmol/L Carbon Dioxide 27 (21-33) mmol/L Anion Gap 17 (10-20) BUN 39 H (7-21) mg/dL Creatinine 0.8 (0.7-1.2) mg/dl Est GFR ( Amer) > 60 Est GFR (Non-Af Amer) > 60 POC Glucose (mg/dL) 216 H (65-110) mg/dL Random Glucose 225 H (70-110) mg/dL Hemoglobin A1c (4.2-6.5) % Lactic Acid 5.7 H* (0.7-2.1) mmol/L Calcium 8.2 L (8.4-10.5) mg/dL Phosphorus (2.5-4.5) mg/dL Magnesium (1.7-2.2) mg/dL Total Bilirubin (0.2-1.3) mg/dL AST (14-36) U/L ALT (7-56) U/L Alkaline Phosphatase (38-126) U/L Troponin I 0.33 H* D ng/mL Total Protein (5.8-8.3) g/dL Albumin (3.0-4.8) g/dL Globulin gm/dL Albumin/Globulin Ratio (1.1-1.8) Triglycerides (35-160) mg/dL Cholesterol (130-200) mg/dL LDL Cholesterol Direct (0-129) mg/dL HDL Cholesterol (29-60) mg/dL Free T4 (0.78-2.19) ng/dL Thyroxine (T4) (5.5-11.0) ug/dL TSH 3rd Generation (0.46-4.68) mIU/mL Arterial Blood Potassium (3.6-5.2) mmol/L Venous Blood Potassium (3.6-5.2) mmol/L Blood Type Antibody Screen BBK History Checked 03/19/18 03/18/18 03/18/18 Range/Units 00:22 23:29 22:46 WBC (4.5-11.0) 10^3/ul RBC (3.5-6.1) 10^6/uL Hgb (12.0-16.0) g/dL Hct (36.0-48.0) % MCV (80.0-105.0) fl MCH (25.0-35.0) pg MCHC (31.0-37.0) g/dl RDW (11.5-14.5) % Plt Count (120.0-450.0) 10^3/uL MPV (7.0-11.0) fl Gran % (50.0-68.0) % Lymph % (Auto) (22.0-35.0) % [place] % (Auto) (1.0-6.0) % Eos % (Auto) (1.5-5.0) % Baso % (Auto) (0.0-3.0) % Gran # (1.4-6.5) Lymph # (Auto) (1.2-3.4) [place] # (Auto) (0.1-0.6) Eos # (Auto) (0.0-0.7) Baso # (Auto) (0.0-2.0) K/mm3 Neutrophils % (Manual) (50.0-70.0) % Band Neutrophils % (0-2) % Lymphocytes % (Manual) (22.0-35.0) % Monocytes % (Manual) (1.0-6.0) % Platelet Evaluation (NORMAL) Hypochromasia Anisocytosis (manual) pCO2 (35-45) mm/Hg pO2 (80-100) mm/Hg HCO3 (21-28) mmol/L ABG pH (7.35-7.45) ABG Total CO2 (22-28) mmol.L ABG O2 Saturation (95-98) % ABG O2 Content (15-23) ML/dl ABG Base Excess (-2.0-3.0) mmol/L ABG Hemoglobin (11.7-17.4) g/dL ABG Carboxyhemoglobin (0.5-1.5) % POC ABG HHb (Measured) (0-5) % ABG Methemoglobin (0.0-3.0) % ABG O2 Capacity (16-24) mL/dl ABG Potassium (3.6-5.2) mmol/L VBG pH (7.32-7.43) VBG pCO2 (40-60) VBG HCO3 (21-28) mmol/l VBG Total CO2 (22-28) mmol.L VBG O2 Sat (Calc) (40-65) % VBG Base Excess (0.0-2.0) mmol/L VBG Potassium (3.6-5.2) mmol/L Hgb O2 Saturation (95.0-98.0) % Sodium (132-148) mmol/L Chloride (98-107) mmol/L Glucose (65-105) mg/dl Lactate (0.7-2.1) mmol/L Mechanical Rate FiO2 % Tidal Volume PEEP Potassium (3.6-5.0) mmol/L Carbon Dioxide (21-33) mmol/L Anion Gap (10-20) BUN (7-21) mg/dL Creatinine (0.7-1.2) mg/dl Est GFR ( Amer) Est GFR (Non-Af Amer) POC Glucose (mg/dL) 374 H 464 H* 460 H* (65-110) mg/dL Random Glucose (70-110) mg/dL Hemoglobin A1c (4.2-6.5) % Lactic Acid (0.7-2.1) mmol/L Calcium (8.4-10.5) mg/dL Phosphorus (2.5-4.5) mg/dL Magnesium (1.7-2.2) mg/dL Total Bilirubin (0.2-1.3) mg/dL AST (14-36) U/L ALT (7-56) U/L Alkaline Phosphatase (38-126) U/L Troponin I ng/mL Total Protein (5.8-8.3) g/dL Albumin (3.0-4.8) g/dL Globulin gm/dL Albumin/Globulin Ratio (1.1-1.8) Triglycerides (35-160) mg/dL Cholesterol (130-200) mg/dL LDL Cholesterol Direct (0-129) mg/dL HDL Cholesterol (29-60) mg/dL Free T4 (0.78-2.19) ng/dL Thyroxine (T4) (5.5-11.0) ug/dL TSH 3rd Generation (0.46-4.68) mIU/mL Arterial Blood Potassium (3.6-5.2) mmol/L Venous Blood Potassium (3.6-5.2) mmol/L Blood Type Antibody Screen BBK History Checked 03/18/18 03/18/18 03/18/18 Range/Units 22:08 22:00 21:43 WBC (4.5-11.0) 10^3/ul RBC (3.5-6.1) 10^6/uL Hgb (12.0-16.0) g/dL Hct (36.0-48.0) % MCV (80.0-105.0) fl MCH (25.0-35.0) pg MCHC (31.0-37.0) g/dl RDW (11.5-14.5) % Plt Count (120.0-450.0) 10^3/uL MPV (7.0-11.0) fl Gran % (50.0-68.0) % Lymph % (Auto) (22.0-35.0) % [place] % (Auto) (1.0-6.0) % Eos % (Auto) (1.5-5.0) % Baso % (Auto) (0.0-3.0) % Gran # (1.4-6.5) Lymph # (Auto) (1.2-3.4) [place] # (Auto) (0.1-0.6) Eos # (Auto) (0.0-0.7) Baso # (Auto) (0.0-2.0) K/mm3 Neutrophils % (Manual) (50.0-70.0) % Band Neutrophils % (0-2) % Lymphocytes % (Manual) (22.0-35.0) % Monocytes % (Manual) (1.0-6.0) % Platelet Evaluation (NORMAL) Hypochromasia Anisocytosis (manual) pCO2 (35-45) mm/Hg pO2 167 H (80-100) mm/Hg HCO3 (21-28) mmol/L ABG pH (7.35-7.45) ABG Total CO2 (22-28) mmol.L ABG O2 Saturation (95-98) % ABG O2 Content (15-23) ML/dl ABG Base Excess (-2.0-3.0) mmol/L ABG Hemoglobin (11.7-17.4) g/dL ABG Carboxyhemoglobin (0.5-1.5) % POC ABG HHb (Measured) (0-5) % ABG Methemoglobin (0.0-3.0) % ABG O2 Capacity (16-24) mL/dl ABG Potassium (3.6-5.2) mmol/L VBG pH 7.31 L (7.32-7.43) VBG pCO2 47.0 (40-60) VBG HCO3 23.7 (21-28) mmol/l VBG Total CO2 25.1 (22-28) mmol.L VBG O2 Sat (Calc) 98.7 H (40-65) % VBG Base Excess -2.9 L (0.0-2.0) mmol/L VBG Potassium 3.2 L (3.6-5.2) mmol/L Hgb O2 Saturation (95.0-98.0) % Sodium 149 H 147.0 (132-148) mmol/L Chloride 107 108.0 H (98-107) mmol/L Glucose 383 H (65-105) mg/dl Lactate 7.3 H* (0.7-2.1) mmol/L Mechanical Rate FiO2 21.0 % Tidal Volume PEEP Potassium 3.3 L (3.6-5.0) mmol/L Carbon Dioxide 25 (21-33) mmol/L Anion Gap 20 (10-20) BUN 41 H (7-21) mg/dL Creatinine 1.0 (0.7-1.2) mg/dl Est GFR ( Amer) > 60 Est GFR (Non-Af Amer) 57 POC Glucose (mg/dL) 465 H* (65-110) mg/dL Random Glucose 366 H* D (70-110) mg/dL Hemoglobin A1c (4.2-6.5) % Lactic Acid (0.7-2.1) mmol/L Calcium 8.5 (8.4-10.5) mg/dL Phosphorus 1.9 L (2.5-4.5) mg/dL Magnesium 2.3 H (1.7-2.2) mg/dL Total Bilirubin (0.2-1.3) mg/dL AST (14-36) U/L ALT (7-56) U/L Alkaline Phosphatase (38-126) U/L Troponin I ng/mL Total Protein (5.8-8.3) g/dL Albumin (3.0-4.8) g/dL Globulin gm/dL Albumin/Globulin Ratio (1.1-1.8) Triglycerides (35-160) mg/dL Cholesterol (130-200) mg/dL LDL Cholesterol Direct (0-129) mg/dL HDL Cholesterol (29-60) mg/dL Free T4 (0.78-2.19) ng/dL Thyroxine (T4) (5.5-11.0) ug/dL TSH 3rd Generation (0.46-4.68) mIU/mL Arterial Blood Potassium (3.6-5.2) mmol/L Venous Blood Potassium 3.2 L (3.6-5.2) mmol/L Blood Type Antibody Screen BBK History Checked 03/18/18 03/18/18 03/18/18 Range/Units 20:22 19:44 18:41 WBC (4.5-11.0) 10^3/ul RBC (3.5-6.1) 10^6/uL Hgb (12.0-16.0) g/dL Hct (36.0-48.0) % MCV (80.0-105.0) fl MCH (25.0-35.0) pg MCHC (31.0-37.0) g/dl RDW (11.5-14.5) % Plt Count (120.0-450.0) 10^3/uL MPV (7.0-11.0) fl Gran % (50.0-68.0) % Lymph % (Auto) (22.0-35.0) % [place] % (Auto) (1.0-6.0) % Eos % (Auto) (1.5-5.0) % Baso % (Auto) (0.0-3.0) % Gran # (1.4-6.5) Lymph # (Auto) (1.2-3.4) [place] # (Auto) (0.1-0.6) Eos # (Auto) (0.0-0.7) Baso # (Auto) (0.0-2.0) K/mm3 Neutrophils % (Manual) (50.0-70.0) % Band Neutrophils % (0-2) % Lymphocytes % (Manual) (22.0-35.0) % Monocytes % (Manual) (1.0-6.0) % Platelet Evaluation (NORMAL) Hypochromasia Anisocytosis (manual) pCO2 (35-45) mm/Hg pO2 (80-100) mm/Hg HCO3 (21-28) mmol/L ABG pH (7.35-7.45) ABG Total CO2 (22-28) mmol.L ABG O2 Saturation (95-98) % ABG O2 Content (15-23) ML/dl ABG Base Excess (-2.0-3.0) mmol/L ABG Hemoglobin (11.7-17.4) g/dL ABG Carboxyhemoglobin (0.5-1.5) % POC ABG HHb (Measured) (0-5) % ABG Methemoglobin (0.0-3.0) % ABG O2 Capacity (16-24) mL/dl ABG Potassium (3.6-5.2) mmol/L VBG pH (7.32-7.43) VBG pCO2 (40-60) VBG HCO3 (21-28) mmol/l VBG Total CO2 (22-28) mmol.L VBG O2 Sat (Calc) (40-65) % VBG Base Excess (0.0-2.0) mmol/L VBG Potassium (3.6-5.2) mmol/L Hgb O2 Saturation (95.0-98.0) % Sodium (132-148) mmol/L Chloride (98-107) mmol/L Glucose (65-105) mg/dl Lactate (0.7-2.1) mmol/L Mechanical Rate FiO2 % Tidal Volume PEEP Potassium (3.6-5.0) mmol/L Carbon Dioxide (21-33) mmol/L Anion Gap (10-20) BUN (7-21) mg/dL Creatinine (0.7-1.2) mg/dl Est GFR ( Amer) Est GFR (Non-Af Amer) POC Glucose (mg/dL) > 500 H* > 500 H* > 500 H* (65-110) mg/dL Random Glucose (70-110) mg/dL Hemoglobin A1c (4.2-6.5) % Lactic Acid (0.7-2.1) mmol/L Calcium (8.4-10.5) mg/dL Phosphorus (2.5-4.5) mg/dL Magnesium (1.7-2.2) mg/dL Total Bilirubin (0.2-1.3) mg/dL AST (14-36) U/L ALT (7-56) U/L Alkaline Phosphatase (38-126) U/L Troponin I ng/mL Total Protein (5.8-8.3) g/dL Albumin (3.0-4.8) g/dL Globulin gm/dL Albumin/Globulin Ratio (1.1-1.8) Triglycerides (35-160) mg/dL Cholesterol (130-200) mg/dL LDL Cholesterol Direct (0-129) mg/dL HDL Cholesterol (29-60) mg/dL Free T4 (0.78-2.19) ng/dL Thyroxine (T4) (5.5-11.0) ug/dL TSH 3rd Generation (0.46-4.68) mIU/mL Arterial Blood Potassium (3.6-5.2) mmol/L Venous Blood Potassium (3.6-5.2) mmol/L Blood Type Antibody Screen BBK History Checked 03/18/18 03/18/18 03/18/18 Range/Units 17:31 16:17 16:15 WBC (4.5-11.0) 10^3/ul RBC (3.5-6.1) 10^6/uL Hgb (12.0-16.0) g/dL Hct (36.0-48.0) % MCV (80.0-105.0) fl MCH (25.0-35.0) pg MCHC (31.0-37.0) g/dl RDW (11.5-14.5) % Plt Count (120.0-450.0) 10^3/uL MPV (7.0-11.0) fl Gran % (50.0-68.0) % Lymph % (Auto) (22.0-35.0) % [place] % (Auto) (1.0-6.0) % Eos % (Auto) (1.5-5.0) % Baso % (Auto) (0.0-3.0) % Gran # (1.4-6.5) Lymph # (Auto) (1.2-3.4) [place] # (Auto) (0.1-0.6) Eos # (Auto) (0.0-0.7) Baso # (Auto) (0.0-2.0) K/mm3 Neutrophils % (Manual) (50.0-70.0) % Band Neutrophils % (0-2) % Lymphocytes % (Manual) (22.0-35.0) % Monocytes % (Manual) (1.0-6.0) % Platelet Evaluation (NORMAL) Hypochromasia Anisocytosis (manual) pCO2 (35-45) mm/Hg pO2 (80-100) mm/Hg HCO3 (21-28) mmol/L ABG pH (7.35-7.45) ABG Total CO2 (22-28) mmol.L ABG O2 Saturation (95-98) % ABG O2 Content (15-23) ML/dl ABG Base Excess (-2.0-3.0) mmol/L ABG Hemoglobin (11.7-17.4) g/dL ABG Carboxyhemoglobin (0.5-1.5) % POC ABG HHb (Measured) (0-5) % ABG Methemoglobin (0.0-3.0) % ABG O2 Capacity (16-24) mL/dl ABG Potassium (3.6-5.2) mmol/L VBG pH (7.32-7.43) VBG pCO2 (40-60) VBG HCO3 (21-28) mmol/l VBG Total CO2 (22-28) mmol.L VBG O2 Sat (Calc) (40-65) % VBG Base Excess (0.0-2.0) mmol/L VBG Potassium (3.6-5.2) mmol/L Hgb O2 Saturation (95.0-98.0) % Sodium (132-148) mmol/L Chloride (98-107) mmol/L Glucose (65-105) mg/dl Lactate (0.7-2.1) mmol/L Mechanical Rate FiO2 % Tidal Volume PEEP Potassium (3.6-5.0) mmol/L Carbon Dioxide (21-33) mmol/L Anion Gap (10-20) BUN (7-21) mg/dL Creatinine (0.7-1.2) mg/dl Est GFR ( Amer) Est GFR (Non-Af Amer) POC Glucose (mg/dL) > 500 H* > 500 H* > 500 H* (65-110) mg/dL Random Glucose (70-110) mg/dL Hemoglobin A1c (4.2-6.5) % Lactic Acid (0.7-2.1) mmol/L Calcium (8.4-10.5) mg/dL Phosphorus (2.5-4.5) mg/dL Magnesium (1.7-2.2) mg/dL Total Bilirubin (0.2-1.3) mg/dL AST (14-36) U/L ALT (7-56) U/L Alkaline Phosphatase (38-126) U/L Troponin I ng/mL Total Protein (5.8-8.3) g/dL Albumin (3.0-4.8) g/dL Globulin gm/dL Albumin/Globulin Ratio (1.1-1.8) Triglycerides (35-160) mg/dL Cholesterol (130-200) mg/dL LDL Cholesterol Direct (0-129) mg/dL HDL Cholesterol (29-60) mg/dL Free T4 (0.78-2.19) ng/dL Thyroxine (T4) (5.5-11.0) ug/dL TSH 3rd Generation (0.46-4.68) mIU/mL Arterial Blood Potassium (3.6-5.2) mmol/L Venous Blood Potassium (3.6-5.2) mmol/L Blood Type Antibody Screen BBK History Checked 03/18/18 03/18/18 03/18/18 Range/Units 15:41 15:41 15:41 WBC 23.1 H D (4.5-11.0) 10^3/ul RBC 4.07 (3.5-6.1) 10^6/uL Hgb 11.6 L D (12.0-16.0) g/dL Hct 39.6 (36.0-48.0) % MCV 97.3 (80.0-105.0) fl MCH 28.5 (25.0-35.0) pg MCHC 29.3 L (31.0-37.0) g/dl RDW 14.9 H (11.5-14.5) % Plt Count 301 (120.0-450.0) 10^3/uL MPV 12.5 H (7.0-11.0) fl Gran % 95.7 H (50.0-68.0) % Lymph % (Auto) 1.3 L (22.0-35.0) % [place] % (Auto) 2.9 (1.0-6.0) % Eos % (Auto) 0.0 L (1.5-5.0) % Baso % (Auto) 0.1 (0.0-3.0) % Gran # 22.06 H (1.4-6.5) Lymph # (Auto) 0.3 L (1.2-3.4) [place] # (Auto) 0.7 H (0.1-0.6) Eos # (Auto) 0.0 (0.0-0.7) Baso # (Auto) 0.02 (0.0-2.0) K/mm3 Neutrophils % (Manual) 93 H (50.0-70.0) % Band Neutrophils % 4 H (0-2) % Lymphocytes % (Manual) 2 L (22.0-35.0) % Monocytes % (Manual) 1 (1.0-6.0) % Platelet Evaluation Normal (NORMAL) Hypochromasia Slight Anisocytosis (manual) Slight pCO2 (35-45) mm/Hg pO2 (80-100) mm/Hg HCO3 (21-28) mmol/L ABG pH (7.35-7.45) ABG Total CO2 (22-28) mmol.L ABG O2 Saturation (95-98) % ABG O2 Content (15-23) ML/dl ABG Base Excess (-2.0-3.0) mmol/L ABG Hemoglobin (11.7-17.4) g/dL ABG Carboxyhemoglobin (0.5-1.5) % POC ABG HHb (Measured) (0-5) % ABG Methemoglobin (0.0-3.0) % ABG O2 Capacity (16-24) mL/dl ABG Potassium (3.6-5.2) mmol/L VBG pH (7.32-7.43) VBG pCO2 (40-60) VBG HCO3 (21-28) mmol/l VBG Total CO2 (22-28) mmol.L VBG O2 Sat (Calc) (40-65) % VBG Base Excess (0.0-2.0) mmol/L VBG Potassium (3.6-5.2) mmol/L Hgb O2 Saturation (95.0-98.0) % Sodium 145 (132-148) mmol/L Chloride 99 (98-107) mmol/L Glucose (65-105) mg/dl Lactate (0.7-2.1) mmol/L Mechanical Rate FiO2 % Tidal Volume PEEP Potassium 4.2 (3.6-5.0) mmol/L Carbon Dioxide 25 (21-33) mmol/L Anion Gap 25 H (10-20) BUN 45 H (7-21) mg/dL Creatinine 1.1 (0.7-1.2) mg/dl Est GFR ( Amer) > 60 Est GFR (Non-Af Amer) 51 POC Glucose (mg/dL) (65-110) mg/dL Random Glucose 732 H* D (70-110) mg/dL Hemoglobin A1c (4.2-6.5) % Lactic Acid (0.7-2.1) mmol/L Calcium 8.2 L (8.4-10.5) mg/dL Phosphorus (2.5-4.5) mg/dL Magnesium 2.9 H (1.7-2.2) mg/dL Total Bilirubin 0.9 (0.2-1.3) mg/dL AST 4645 H (14-36) U/L ALT 2235 H (7-56) U/L Alkaline Phosphatase 126 D (38-126) U/L Troponin I 0.14 H* D ng/mL Total Protein 5.2 L (5.8-8.3) g/dL Albumin 2.8 L (3.0-4.8) g/dL Globulin 2.3 gm/dL Albumin/Globulin Ratio 1.2 (1.1-1.8) Triglycerides (35-160) mg/dL Cholesterol (130-200) mg/dL LDL Cholesterol Direct (0-129) mg/dL HDL Cholesterol (29-60) mg/dL Free T4 (0.78-2.19) ng/dL Thyroxine (T4) (5.5-11.0) ug/dL TSH 3rd Generation (0.46-4.68) mIU/mL Arterial Blood Potassium (3.6-5.2) mmol/L Venous Blood Potassium (3.6-5.2) mmol/L Blood Type Antibody Screen BBK History Checked 03/18/18 03/18/18 03/18/18 Range/Units 15:41 15:40 15:39 WBC (4.5-11.0) 10^3/ul RBC (3.5-6.1) 10^6/uL Hgb (12.0-16.0) g/dL Hct (36.0-48.0) % MCV (80.0-105.0) fl MCH (25.0-35.0) pg MCHC (31.0-37.0) g/dl RDW (11.5-14.5) % Plt Count (120.0-450.0) 10^3/uL MPV (7.0-11.0) fl Gran % (50.0-68.0) % Lymph % (Auto) (22.0-35.0) % [place] % (Auto) (1.0-6.0) % Eos % (Auto) (1.5-5.0) % Baso % (Auto) (0.0-3.0) % Gran # (1.4-6.5) Lymph # (Auto) (1.2-3.4) [place] # (Auto) (0.1-0.6) Eos # (Auto) (0.0-0.7) Baso # (Auto) (0.0-2.0) K/mm3 Neutrophils % (Manual) (50.0-70.0) % Band Neutrophils % (0-2) % Lymphocytes % (Manual) (22.0-35.0) % Monocytes % (Manual) (1.0-6.0) % Platelet Evaluation (NORMAL) Hypochromasia Anisocytosis (manual) pCO2 (35-45) mm/Hg pO2 64 H (80-100) mm/Hg HCO3 (21-28) mmol/L ABG pH (7.35-7.45) ABG Total CO2 (22-28) mmol.L ABG O2 Saturation (95-98) % ABG O2 Content (15-23) ML/dl ABG Base Excess (-2.0-3.0) mmol/L ABG Hemoglobin (11.7-17.4) g/dL ABG Carboxyhemoglobin (0.5-1.5) % POC ABG HHb (Measured) (0-5) % ABG Methemoglobin (0.0-3.0) % ABG O2 Capacity (16-24) mL/dl ABG Potassium (3.6-5.2) mmol/L VBG pH 7.29 L (7.32-7.43) VBG pCO2 53.0 (40-60) VBG HCO3 25.5 (21-28) mmol/l VBG Total CO2 27.1 (22-28) mmol.L VBG O2 Sat (Calc) 93.1 H (40-65) % VBG Base Excess -1.9 L (0.0-2.0) mmol/L VBG Potassium 4.1 (3.6-5.2) mmol/L Hgb O2 Saturation (95.0-98.0) % Sodium 143.0 (132-148) mmol/L Chloride 100.0 (98-107) mmol/L Glucose > 750 H* (65-105) mg/dl Lactate 3.3 H (0.7-2.1) mmol/L Mechanical Rate FiO2 21.0 % Tidal Volume PEEP Potassium (3.6-5.0) mmol/L Carbon Dioxide (21-33) mmol/L Anion Gap (10-20) BUN (7-21) mg/dL Creatinine (0.7-1.2) mg/dl Est GFR ( Amer) Est GFR (Non-Af Amer) POC Glucose (mg/dL) > 500 H* (65-110) mg/dL Random Glucose (70-110) mg/dL Hemoglobin A1c (4.2-6.5) % Lactic Acid (0.7-2.1) mmol/L Calcium (8.4-10.5) mg/dL Phosphorus (2.5-4.5) mg/dL Magnesium (1.7-2.2) mg/dL Total Bilirubin (0.2-1.3) mg/dL AST (14-36) U/L ALT (7-56) U/L Alkaline Phosphatase (38-126) U/L Troponin I ng/mL Total Protein (5.8-8.3) g/dL Albumin (3.0-4.8) g/dL Globulin gm/dL Albumin/Globulin Ratio (1.1-1.8) Triglycerides (35-160) mg/dL Cholesterol (130-200) mg/dL LDL Cholesterol Direct (0-129) mg/dL HDL Cholesterol (29-60) mg/dL Free T4 (0.78-2.19) ng/dL Thyroxine (T4) (5.5-11.0) ug/dL TSH 3rd Generation (0.46-4.68) mIU/mL Arterial Blood Potassium (3.6-5.2) mmol/L Venous Blood Potassium 4.1 (3.6-5.2) mmol/L Blood Type A NEGATIVE Antibody Screen Negative BBK History Checked Patient has bt 03/18/18 Range/Units 14:50 WBC (4.5-11.0) 10^3/ul RBC (3.5-6.1) 10^6/uL Hgb (12.0-16.0) g/dL Hct (36.0-48.0) % MCV (80.0-105.0) fl MCH (25.0-35.0) pg MCHC (31.0-37.0) g/dl RDW (11.5-14.5) % Plt Count (120.0-450.0) 10^3/uL MPV (7.0-11.0) fl Gran % (50.0-68.0) % Lymph % (Auto) (22.0-35.0) % [place] % (Auto) (1.0-6.0) % Eos % (Auto) (1.5-5.0) % Baso % (Auto) (0.0-3.0) % Gran # (1.4-6.5) Lymph # (Auto) (1.2-3.4) [place] # (Auto) (0.1-0.6) Eos # (Auto) (0.0-0.7) Baso # (Auto) (0.0-2.0) K/mm3 Neutrophils % (Manual) (50.0-70.0) % Band Neutrophils % (0-2) % Lymphocytes % (Manual) (22.0-35.0) % Monocytes % (Manual) (1.0-6.0) % Platelet Evaluation (NORMAL) Hypochromasia Anisocytosis (manual) pCO2 32 L (35-45) mm/Hg pO2 173.0 H (80-100) mm/Hg HCO3 19.8 L (21-28) mmol/L ABG pH 7.40 (7.35-7.45) ABG Total CO2 20.8 L (22-28) mmol.L ABG O2 Saturation 98.4 H (95-98) % ABG O2 Content (15-23) ML/dl ABG Base Excess -4.0 L (-2.0-3.0) mmol/L ABG Hemoglobin (11.7-17.4) g/dL ABG Carboxyhemoglobin (0.5-1.5) % POC ABG HHb (Measured) (0-5) % ABG Methemoglobin (0.0-3.0) % ABG O2 Capacity (16-24) mL/dl ABG Potassium 3.4 L (3.6-5.2) mmol/L VBG pH (7.32-7.43) VBG pCO2 (40-60) VBG HCO3 (21-28) mmol/l VBG Total CO2 (22-28) mmol.L VBG O2 Sat (Calc) (40-65) % VBG Base Excess (0.0-2.0) mmol/L VBG Potassium (3.6-5.2) mmol/L Hgb O2 Saturation (95.0-98.0) % Sodium 144.0 (132-148) mmol/L Chloride 105.0 (98-107) mmol/L Glucose 685 H* (65-105) mg/dl Lactate 2.9 H (0.7-2.1) mmol/L Mechanical Rate 18 FiO2 100.0 % Tidal Volume 400 PEEP 5 Potassium (3.6-5.0) mmol/L Carbon Dioxide (21-33) mmol/L Anion Gap (10-20) BUN (7-21) mg/dL Creatinine (0.7-1.2) mg/dl Est GFR ( Amer) Est GFR (Non-Af Amer) POC Glucose (mg/dL) (65-110) mg/dL Random Glucose (70-110) mg/dL Hemoglobin A1c (4.2-6.5) % Lactic Acid (0.7-2.1) mmol/L Calcium (8.4-10.5) mg/dL Phosphorus (2.5-4.5) mg/dL Magnesium (1.7-2.2) mg/dL Total Bilirubin (0.2-1.3) mg/dL AST (14-36) U/L ALT (7-56) U/L Alkaline Phosphatase (38-126) U/L Troponin I ng/mL Total Protein (5.8-8.3) g/dL Albumin (3.0-4.8) g/dL Globulin gm/dL Albumin/Globulin Ratio (1.1-1.8) Triglycerides (35-160) mg/dL Cholesterol (130-200) mg/dL LDL Cholesterol Direct (0-129) mg/dL HDL Cholesterol (29-60) mg/dL Free T4 (0.78-2.19) ng/dL Thyroxine (T4) (5.5-11.0) ug/dL TSH 3rd Generation (0.46-4.68) mIU/mL Arterial Blood Potassium 3.4 L (3.6-5.2) mmol/L Venous Blood Potassium (3.6-5.2) mmol/L Blood Type Antibody Screen BBK History Checked Laboratory Results - last 24 hr 03/18/18 03/18/18 03/18/18 14:50 15:39 15:40 WBC RBC Hgb Hct MCV MCH MCHC RDW Plt Count MPV Gran % Lymph % (Auto) [place] % (Auto) Eos % (Auto) Baso % (Auto) Gran # Lymph # (Auto) [place] # (Auto) Eos # (Auto) Baso # (Auto) Neutrophils % (Manual) Band Neutrophils % Lymphocytes % (Manual) Monocytes % (Manual) Platelet Evaluation Hypochromasia Anisocytosis (manual) pCO2 32 L pO2 173.0 H 64 H HCO3 19.8 L ABG pH 7.40 ABG Total CO2 20.8 L ABG O2 Saturation 98.4 H ABG O2 Content ABG Base Excess -4.0 L ABG Hemoglobin ABG Carboxyhemoglobin POC ABG HHb (Measured) ABG Methemoglobin ABG O2 Capacity ABG Potassium 3.4 L VBG pH 7.29 L VBG pCO2 53.0 VBG HCO3 25.5 VBG Total CO2 27.1 VBG O2 Sat (Calc) 93.1 H VBG Base Excess -1.9 L VBG Potassium 4.1 Hgb O2 Saturation Sodium 144.0 143.0 Chloride 105.0 100.0 Glucose 685 H* > 750 H* Lactate 2.9 H 3.3 H Mechanical Rate 18 FiO2 100.0 21.0 Tidal Volume 400 PEEP 5 Potassium Carbon Dioxide Anion Gap BUN Creatinine Est GFR ( Amer) Est GFR (Non-Af Amer) POC Glucose (mg/dL) > 500 H* Random Glucose Hemoglobin A1c Lactic Acid Calcium Phosphorus Magnesium Total Bilirubin AST ALT Alkaline Phosphatase Troponin I Total Protein Albumin Globulin Albumin/Globulin Ratio Triglycerides Cholesterol LDL Cholesterol Direct HDL Cholesterol Free T4 Thyroxine (T4) TSH 3rd Generation Arterial Blood Potassium 3.4 L Venous Blood Potassium 4.1 Blood Type Antibody Screen BBK History Checked 03/18/18 03/18/18 03/18/18 15:41 15:41 15:41 WBC 23.1 H D RBC 4.07 Hgb 11.6 L D Hct 39.6 MCV 97.3 MCH 28.5 MCHC 29.3 L RDW 14.9 H Plt Count 301 MPV 12.5 H Gran % 95.7 H Lymph % (Auto) 1.3 L [place] % (Auto) 2.9 Eos % (Auto) 0.0 L Baso % (Auto) 0.1 Gran # 22.06 H Lymph # (Auto) 0.3 L [place] # (Auto) 0.7 H Eos # (Auto) 0.0 Baso # (Auto) 0.02 Neutrophils % (Manual) 93 H Band Neutrophils % 4 H Lymphocytes % (Manual) 2 L Monocytes % (Manual) 1 Platelet Evaluation Normal Hypochromasia Slight Anisocytosis (manual) Slight pCO2 pO2 HCO3 ABG pH ABG Total CO2 ABG O2 Saturation ABG O2 Content ABG Base Excess ABG Hemoglobin ABG Carboxyhemoglobin POC ABG HHb (Measured) ABG Methemoglobin ABG O2 Capacity ABG Potassium VBG pH VBG pCO2 VBG HCO3 VBG Total CO2 VBG O2 Sat (Calc) VBG Base Excess VBG Potassium Hgb O2 Saturation Sodium 145 Chloride 99 Glucose Lactate Mechanical Rate FiO2 Tidal Volume PEEP Potassium 4.2 Carbon Dioxide 25 Anion Gap 25 H BUN 45 H Creatinine 1.1 Est GFR ( Amer) > 60 Est GFR (Non-Af Amer) 51 POC Glucose (mg/dL) Random Glucose 732 H* D Hemoglobin A1c Lactic Acid Calcium 8.2 L Phosphorus Magnesium Total Bilirubin 0.9 AST 4645 H ALT 2235 H Alkaline Phosphatase 126 D Troponin I 0.14 H* D Total Protein 5.2 L Albumin 2.8 L Globulin 2.3 Albumin/Globulin Ratio 1.2 Triglycerides Cholesterol LDL Cholesterol Direct HDL Cholesterol Free T4 Thyroxine (T4) TSH 3rd Generation Arterial Blood Potassium Venous Blood Potassium Blood Type A NEGATIVE Antibody Screen Negative BBK History Checked Patient has bt 03/18/18 03/18/18 03/18/18 15:41 16:15 16:17 WBC RBC Hgb Hct MCV MCH MCHC RDW Plt Count MPV Gran % Lymph % (Auto) [place] % (Auto) Eos % (Auto) Baso % (Auto) Gran # Lymph # (Auto) [place] # (Auto) Eos # (Auto) Baso # (Auto) Neutrophils % (Manual) Band Neutrophils % Lymphocytes % (Manual) Monocytes % (Manual) Platelet Evaluation Hypochromasia Anisocytosis (manual) pCO2 pO2 HCO3 ABG pH ABG Total CO2 ABG O2 Saturation ABG O2 Content ABG Base Excess ABG Hemoglobin ABG Carboxyhemoglobin POC ABG HHb (Measured) ABG Methemoglobin ABG O2 Capacity ABG Potassium VBG pH VBG pCO2 VBG HCO3 VBG Total CO2 VBG O2 Sat (Calc) VBG Base Excess VBG Potassium Hgb O2 Saturation Sodium Chloride Glucose Lactate Mechanical Rate FiO2 Tidal Volume PEEP Potassium Carbon Dioxide Anion Gap BUN Creatinine Est GFR ( Amer) Est GFR (Non-Af Amer) POC Glucose (mg/dL) > 500 H* > 500 H* Random Glucose Hemoglobin A1c Lactic Acid Calcium Phosphorus Magnesium 2.9 H Total Bilirubin AST ALT Alkaline Phosphatase Troponin I Total Protein Albumin Globulin Albumin/Globulin Ratio Triglycerides Cholesterol LDL Cholesterol Direct HDL Cholesterol Free T4 Thyroxine (T4) TSH 3rd Generation Arterial Blood Potassium Venous Blood Potassium Blood Type Antibody Screen BBK History Checked 03/18/18 03/18/18 03/18/18 17:31 18:41 19:44 WBC RBC Hgb Hct MCV MCH MCHC RDW Plt Count MPV Gran % Lymph % (Auto) [place] % (Auto) Eos % (Auto) Baso % (Auto) Gran # Lymph # (Auto) [place] # (Auto) Eos # (Auto) Baso # (Auto) Neutrophils % (Manual) Band Neutrophils % Lymphocytes % (Manual) Monocytes % (Manual) Platelet Evaluation Hypochromasia Anisocytosis (manual) pCO2 pO2 HCO3 ABG pH ABG Total CO2 ABG O2 Saturation ABG O2 Content ABG Base Excess ABG Hemoglobin ABG Carboxyhemoglobin POC ABG HHb (Measured) ABG Methemoglobin ABG O2 Capacity ABG Potassium VBG pH VBG pCO2 VBG HCO3 VBG Total CO2 VBG O2 Sat (Calc) VBG Base Excess VBG Potassium Hgb O2 Saturation Sodium Chloride Glucose Lactate Mechanical Rate FiO2 Tidal Volume PEEP Potassium Carbon Dioxide Anion Gap BUN Creatinine Est GFR ( Amer) Est GFR (Non-Af Amer) POC Glucose (mg/dL) > 500 H* > 500 H* > 500 H* Random Glucose Hemoglobin A1c Lactic Acid Calcium Phosphorus Magnesium Total Bilirubin AST ALT Alkaline Phosphatase Troponin I Total Protein Albumin Globulin Albumin/Globulin Ratio Triglycerides Cholesterol LDL Cholesterol Direct HDL Cholesterol Free T4 Thyroxine (T4) TSH 3rd Generation Arterial Blood Potassium Venous Blood Potassium Blood Type Antibody Screen BBK History Checked 03/18/18 03/18/18 03/18/18 20:22 21:43 22:00 WBC RBC Hgb Hct MCV MCH MCHC RDW Plt Count MPV Gran % Lymph % (Auto) [place] % (Auto) Eos % (Auto) Baso % (Auto) Gran # Lymph # (Auto) [place] # (Auto) Eos # (Auto) Baso # (Auto) Neutrophils % (Manual) Band Neutrophils % Lymphocytes % (Manual) Monocytes % (Manual) Platelet Evaluation Hypochromasia Anisocytosis (manual) pCO2 pO2 167 H HCO3 ABG pH ABG Total CO2 ABG O2 Saturation ABG O2 Content ABG Base Excess ABG Hemoglobin ABG Carboxyhemoglobin POC ABG HHb (Measured) ABG Methemoglobin ABG O2 Capacity ABG Potassium VBG pH 7.31 L VBG pCO2 47.0 VBG HCO3 23.7 VBG Total CO2 25.1 VBG O2 Sat (Calc) 98.7 H VBG Base Excess -2.9 L VBG Potassium 3.2 L Hgb O2 Saturation Sodium 147.0 Chloride 108.0 H Glucose 383 H Lactate 7.3 H* Mechanical Rate FiO2 21.0 Tidal Volume PEEP Potassium Carbon Dioxide Anion Gap BUN Creatinine Est GFR ( Amer) Est GFR (Non-Af Amer) POC Glucose (mg/dL) > 500 H* 465 H* Random Glucose Hemoglobin A1c Lactic Acid Calcium Phosphorus Magnesium Total Bilirubin AST ALT Alkaline Phosphatase Troponin I Total Protein Albumin Globulin Albumin/Globulin Ratio Triglycerides Cholesterol LDL Cholesterol Direct HDL Cholesterol Free T4 Thyroxine (T4) TSH 3rd Generation Arterial Blood Potassium Venous Blood Potassium 3.2 L Blood Type Antibody Screen BBK History Checked 03/18/18 03/18/18 03/18/18 22:08 22:46 23:29 WBC RBC Hgb Hct MCV MCH MCHC RDW Plt Count MPV Gran % Lymph % (Auto) [place] % (Auto) Eos % (Auto) Baso % (Auto) Gran # Lymph # (Auto) [place] # (Auto) Eos # (Auto) Baso # (Auto) Neutrophils % (Manual) Band Neutrophils % Lymphocytes % (Manual) Monocytes % (Manual) Platelet Evaluation Hypochromasia Anisocytosis (manual) pCO2 pO2 HCO3 ABG pH ABG Total CO2 ABG O2 Saturation ABG O2 Content ABG Base Excess ABG Hemoglobin ABG Carboxyhemoglobin POC ABG HHb (Measured) ABG Methemoglobin ABG O2 Capacity ABG Potassium VBG pH VBG pCO2 VBG HCO3 VBG Total CO2 VBG O2 Sat (Calc) VBG Base Excess VBG Potassium Hgb O2 Saturation Sodium 149 H Chloride 107 Glucose Lactate Mechanical Rate FiO2 Tidal Volume PEEP Potassium 3.3 L Carbon Dioxide 25 Anion Gap 20 BUN 41 H Creatinine 1.0 Est GFR ( Amer) > 60 Est GFR (Non-Af Amer) 57 POC Glucose (mg/dL) 460 H* 464 H* Random Glucose 366 H* D Hemoglobin A1c Lactic Acid Calcium 8.5 Phosphorus 1.9 L Magnesium 2.3 H Total Bilirubin AST ALT Alkaline Phosphatase Troponin I Total Protein Albumin Globulin Albumin/Globulin Ratio Triglycerides Cholesterol LDL Cholesterol Direct HDL Cholesterol Free T4 Thyroxine (T4) TSH 3rd Generation Arterial Blood Potassium Venous Blood Potassium Blood Type Antibody Screen BBK History Checked 03/19/18 03/19/1803/19/18 00:22 01:22 01:25 WBC RBC Hgb Hct MCV MCH MCHC RDW Plt Count MPV Gran % Lymph % (Auto) [place] % (Auto) Eos % (Auto) Baso % (Auto) Gran # Lymph # (Auto) [place] # (Auto) Eos # (Auto) Baso # (Auto) Neutrophils % (Manual) Band Neutrophils % Lymphocytes % (Manual) Monocytes % (Manual) Platelet Evaluation Hypochromasia Anisocytosis (manual) pCO2 pO2 HCO3 ABG pH ABG Total CO2 ABG O2 Saturation ABG O2 Content ABG Base Excess ABG Hemoglobin ABG Carboxyhemoglobin POC ABG HHb (Measured) ABG Methemoglobin ABG O2 Capacity ABG Potassium VBG pH VBG pCO2 VBG HCO3 VBG Total CO2 VBG O2 Sat (Calc) VBG Base Excess VBG Potassium Hgb O2 Saturation Sodium 149 H Chloride 107 Glucose Lactate Mechanical Rate FiO2 Tidal Volume PEEP Potassium 3.1 L Carbon Dioxide 27 Anion Gap 17 BUN 39 H Creatinine 0.8 Est GFR ( Amer) > 60 Est GFR (Non-Af Amer) > 60 POC Glucose (mg/dL) 374 H 216 H Random Glucose 225 H Hemoglobin A1c Lactic Acid Calcium 8.2 L Phosphorus Magnesium Total Bilirubin AST ALT Alkaline Phosphatase Troponin I 0.33 H* D Total Protein Albumin Globulin Albumin/Globulin Ratio Triglycerides Cholesterol LDL Cholesterol Direct HDL Cholesterol Free T4 Thyroxine (T4) TSH 3rd Generation Arterial Blood Potassium Venous Blood Potassium Blood Type Antibody Screen BBK History Checked 03/19/18 03/19/18 03/19/18 01:25 02:24 03:56 WBC RBC Hgb Hct MCV MCH MCHC RDW Plt Count MPV Gran % Lymph % (Auto) [place] % (Auto) Eos % (Auto) Baso % (Auto) Gran # Lymph # (Auto) [place] # (Auto) Eos # (Auto) Baso # (Auto) Neutrophils % (Manual) Band Neutrophils % Lymphocytes % (Manual) Monocytes % (Manual) Platelet Evaluation Hypochromasia Anisocytosis (manual) pCO2 pO2 HCO3 ABG pH ABG Total CO2 ABG O2 Saturation ABG O2 Content ABG Base Excess ABG Hemoglobin ABG Carboxyhemoglobin POC ABG HHb (Measured) ABG Methemoglobin ABG O2 Capacity ABG Potassium VBG pH VBG pCO2 VBG HCO3 VBG Total CO2 VBG O2 Sat (Calc) VBG Base Excess VBG Potassium Hgb O2 Saturation Sodium Chloride Glucose Lactate Mechanical Rate FiO2 Tidal Volume PEEP Potassium Carbon Dioxide Anion Gap BUN Creatinine Est GFR ( Amer) Est GFR (Non-Af Amer) POC Glucose (mg/dL) 242 H 208 H Random Glucose Hemoglobin A1c Lactic Acid 5.7 H* Calcium Phosphorus Magnesium Total Bilirubin AST ALT Alkaline Phosphatase Troponin I Total Protein Albumin Globulin Albumin/Globulin Ratio Triglycerides Cholesterol LDL Cholesterol Direct HDL Cholesterol Free T4 Thyroxine (T4) TSH 3rd Generation Arterial Blood Potassium Venous Blood Potassium Blood Type Antibody Screen BBK History Checked 03/19/18 03/19/18 03/19/18 04:42 05:18 05:39 WBC RBC Hgb Hct MCV MCH MCHC RDW Plt Count MPV Gran % Lymph % (Auto) [place] % (Auto) Eos % (Auto) Baso % (Auto) Gran # Lymph # (Auto) [place] # (Auto) Eos # (Auto) Baso # (Auto) Neutrophils % (Manual) Band Neutrophils % Lymphocytes % (Manual) Monocytes % (Manual) Platelet Evaluation Hypochromasia Anisocytosis (manual) pCO2 46 H pO2 113.0 H HCO3 27.8 ABG pH 7.39 ABG Total CO2 29.2 H ABG O2 Saturation 97.6 ABG O2 Content 16.0 ABG Base Excess 2.3 ABG Hemoglobin 11.6 L ABG Carboxyhemoglobin 0.1 L POC ABG HHb (Measured) 2.4 ABG Methemoglobin 0.7 ABG O2 Capacity 16.4 ABG Potassium VBG pH VBG pCO2 VBG HCO3 VBG Total CO2 VBG O2 Sat (Calc) VBG Base Excess VBG Potassium Hgb O2 Saturation 96.8 Sodium Chloride Glucose Lactate Mechanical Rate FiO2 80.0 Tidal Volume PEEP Potassium Carbon Dioxide Anion Gap BUN Creatinine Est GFR ( Amer) Est GFR (Non-Af Amer) POC Glucose (mg/dL) 153 H 77 Random Glucose Hemoglobin A1c Lactic Acid Calcium Phosphorus Magnesium Total Bilirubin AST ALT Alkaline Phosphatase Troponin I Total Protein Albumin Globulin Albumin/Globulin Ratio Triglycerides Cholesterol LDL Cholesterol Direct HDL Cholesterol Free T4 Thyroxine (T4) TSH 3rd Generation Arterial Blood Potassium Venous Blood Potassium Blood Type Antibody Screen BBK History Checked 03/19/18 03/19/18 03/19/18 05:45 05:45 05:45 WBC 19.9 H RBC 4.12 Hgb 11.9 L Hct 37.4 MCV 90.8 D MCH 28.9 MCHC 31.8 RDW 14.6 H Plt Count 285 MPV 12.3 H Gran % Lymph % (Auto) [place] % (Auto) Eos % (Auto) Baso % (Auto) Gran # Lymph # (Auto) [place] # (Auto) Eos # (Auto) Baso # (Auto) Neutrophils % (Manual) Band Neutrophils % Lymphocytes % (Manual) Monocytes % (Manual) Platelet Evaluation Hypochromasia Anisocytosis (manual) pCO2 pO2 HCO3 ABG pH ABG Total CO2 ABG O2 Saturation ABG O2 Content ABG Base Excess ABG Hemoglobin ABG Carboxyhemoglobin POC ABG HHb (Measured) ABG Methemoglobin ABG O2 Capacity ABG Potassium VBG pH VBG pCO2 VBG HCO3 VBG Total CO2 VBG O2 Sat (Calc) VBG Base Excess VBG Potassium Hgb O2 Saturation Sodium 146 Chloride 107 Glucose Lactate Mechanical Rate FiO2 Tidal Volume PEEP Potassium 4.0 Carbon Dioxide 30 Anion Gap 13 BUN 36 H Creatinine 0.8 Est GFR ( Amer) > 60 Est GFR (Non-Af Amer) > 60 POC Glucose (mg/dL) Random Glucose 88 Hemoglobin A1c Lactic Acid Calcium 8.1 L Phosphorus 2.3 L Magnesium 2.2 Total Bilirubin 0.3 AST 4918 H ALT 1827 H Alkaline Phosphatase 99 Troponin I 0.30 H* Total Protein 5.4 L Albumin 2.7 L Globulin 2.7 Albumin/Globulin Ratio 1.0 L Triglycerides 192 H Cholesterol 97 L LDL Cholesterol Direct < 30 HDL Cholesterol 38 Free T4 1.82 Thyroxine (T4) 7.7 TSH 3rd Generation 1.29 Arterial Blood Potassium Venous Blood Potassium Blood Type Antibody Screen BBK History Checked 03/19/18 03/19/18 03/19/18 05:45 05:45 05:46 WBC RBC Hgb Hct MCV MCH MCHC RDW Plt Count MPV Gran % Lymph % (Auto) [place] % (Auto) Eos % (Auto) Baso % (Auto) Gran # Lymph # (Auto) [place] # (Auto) Eos # (Auto) Baso # (Auto) Neutrophils % (Manual) Band Neutrophils % Lymphocytes % (Manual) Monocytes % (Manual) Platelet Evaluation Hypochromasia Anisocytosis (manual) pCO2 pO2 142 H HCO3 ABG pH ABG Total CO2 ABG O2 Saturation ABG O2 Content ABG Base Excess ABG Hemoglobin ABG Carboxyhemoglobin POC ABG HHb (Measured) ABG Methemoglobin ABG O2 Capacity ABG Potassium VBG pH 7.43 VBG pCO2 42.0 VBG HCO3 27.9 VBG Total CO2 29.2 H VBG O2 Sat (Calc) 98.1 H VBG Base Excess 3.2 H VBG Potassium 3.9 Hgb O2 Saturation Sodium 143.0 Chloride 110.0 H Glucose 82 Lactate 4.5 H* Mechanical Rate FiO2 21.0 Tidal Volume PEEP Potassium Carbon Dioxide Anion Gap BUN Creatinine Est GFR ( Amer) Est GFR (Non-Af Amer) POC Glucose (mg/dL) Random Glucose Hemoglobin A1c 9.7 H D Lactic Acid 4.2 H* Calcium Phosphorus Magnesium Total Bilirubin AST ALT Alkaline Phosphatase Troponin I Total Protein Albumin Globulin Albumin/Globulin Ratio Triglycerides Cholesterol LDL Cholesterol Direct HDL Cholesterol Free T4 Thyroxine (T4) TSH 3rd Generation Arterial Blood Potassium Venous Blood Potassium 3.9 Blood Type Antibody Screen BBK History Checked 03/19/18 03/19/18 03/19/18 07:44 08:49 09:44 WBC RBC Hgb Hct MCV MCH MCHC RDW Plt Count MPV Gran % Lymph % (Auto) [place] % (Auto) Eos % (Auto) Baso % (Auto) Gran # Lymph # (Auto) [place] # (Auto) Eos # (Auto) Baso # (Auto) Neutrophils % (Manual) Band Neutrophils % Lymphocytes % (Manual) Monocytes % (Manual) Platelet Evaluation Hypochromasia Anisocytosis (manual) pCO2 pO2 HCO3 ABG pH ABG Total CO2 ABG O2 Saturation ABG O2 Content ABG Base Excess ABG Hemoglobin ABG Carboxyhemoglobin POC ABG HHb (Measured) ABG Methemoglobin ABG O2 Capacity ABG Potassium VBG pH VBG pCO2 VBG HCO3 VBG Total CO2 VBG O2 Sat (Calc) VBG Base Excess VBG Potassium Hgb O2 Saturation Sodium Chloride Glucose Lactate Mechanical Rate FiO2 Tidal Volume PEEP Potassium Carbon Dioxide Anion Gap BUN Creatinine Est GFR ( Amer) Est GFR (Non-Af Amer) POC Glucose (mg/dL) 87 112 H 80 Random Glucose Hemoglobin A1c Lactic Acid Calcium Phosphorus Magnesium Total Bilirubin AST ALT Alkaline Phosphatase Troponin I Total Protein Albumin Globulin Albumin/Globulin Ratio Triglycerides Cholesterol LDL Cholesterol Direct HDL Cholesterol Free T4 Thyroxine (T4) TSH 3rd Generation Arterial Blood Potassium Venous Blood Potassium Blood Type Antibody Screen BBK History Checked 03/19/18 03/19/1803/19/18 10:40 11:41 11:43 WBC RBC Hgb Hct MCV MCH MCHC RDW Plt Count MPV Gran % Lymph % (Auto) [place] % (Auto) Eos % (Auto) Baso % (Auto) Gran # Lymph # (Auto) [place] # (Auto) Eos # (Auto) Baso # (Auto) Neutrophils % (Manual) Band Neutrophils % Lymphocytes % (Manual) Monocytes % (Manual) Platelet Evaluation Hypochromasia Anisocytosis (manual) pCO2 pO2 HCO3 ABG pH ABG Total CO2 ABG O2 Saturation ABG O2 Content ABG Base Excess ABG Hemoglobin ABG Carboxyhemoglobin POC ABG HHb (Measured) ABG Methemoglobin ABG O2 Capacity ABG Potassium VBG pH VBG pCO2 VBG HCO3 VBG Total CO2 VBG O2 Sat (Calc) VBG Base Excess VBG Potassium Hgb O2 Saturation Sodium Chloride Glucose Lactate Mechanical Rate FiO2 Tidal Volume PEEP Potassium Carbon Dioxide Anion Gap BUN Creatinine Est GFR ( Amer) Est GFR (Non-Af Amer) POC Glucose (mg/dL) 101 403 H* 95 Random Glucose Hemoglobin A1c Lactic Acid Calcium Phosphorus Magnesium Total Bilirubin AST ALT Alkaline Phosphatase Troponin I Total Protein Albumin Globulin Albumin/Globulin Ratio Triglycerides Cholesterol LDL Cholesterol Direct HDL Cholesterol Free T4 Thyroxine (T4) TSH 3rd Generation Arterial Blood Potassium Venous Blood Potassium Blood Type Antibody Screen BBK History Checked 03/19/18 03/19/18 03/19/18 11:48 11:48 12:36 WBC RBC Hgb Hct MCV MCH MCHC RDW Plt Count MPV Gran % Lymph % (Auto) [place] % (Auto) Eos % (Auto) Baso % (Auto) Gran # Lymph # (Auto) [place] # (Auto) Eos # (Auto) Baso # (Auto) Neutrophils % (Manual) Band Neutrophils % Lymphocytes % (Manual) Monocytes % (Manual) Platelet Evaluation Hypochromasia Anisocytosis (manual) pCO2 pO2 48 HCO3 ABG pH ABG Total CO2 ABG O2 Saturation ABG O2 Content ABG Base Excess ABG Hemoglobin ABG Carboxyhemoglobin POC ABG HHb (Measured) ABG Methemoglobin ABG O2 Capacity ABG Potassium VBG pH 7.28 L VBG pCO2 66.0 H* VBG HCO3 31.0 H VBG Total CO2 33.0 H VBG O2 Sat (Calc) 82.8 H VBG Base Excess 2.4 H VBG Potassium 3.6 Hgb O2 Saturation Sodium 144 141.0 Chloride 101 102.0 Glucose 103 Lactate 3.8 H Mechanical Rate FiO2 21.0 Tidal Volume PEEP Potassium 3.8 Carbon Dioxide 33 Anion Gap 13 BUN 33 H Creatinine 0.7 Est GFR ( Amer) > 60 Est GFR (Non-Af Amer) > 60 POC Glucose (mg/dL) 92 Random Glucose 111 H Hemoglobin A1c Lactic Acid Calcium 8.3 L Phosphorus Magnesium Total Bilirubin AST ALT Alkaline Phosphatase Troponin I Total Protein Albumin Globulin Albumin/Globulin Ratio Triglycerides Cholesterol LDL Cholesterol Direct HDL Cholesterol Free T4 Thyroxine (T4) TSH 3rd Generation Arterial Blood Potassium Venous Blood Potassium 3.6 Blood Type Antibody Screen BBK History Checked 03/19/18 13:27 WBC RBC Hgb Hct MCV MCH MCHC RDW Plt Count MPV Gran % Lymph % (Auto) [place] % (Auto) Eos % (Auto) Baso % (Auto) Gran # Lymph # (Auto) [place] # (Auto) Eos # (Auto) Baso # (Auto) Neutrophils % (Manual) Band Neutrophils % Lymphocytes % (Manual) Monocytes % (Manual) Platelet Evaluation Hypochromasia Anisocytosis (manual) pCO2 pO2 HCO3 ABG pH ABG Total CO2 ABG O2 Saturation ABG O2 Content ABG Base Excess ABG Hemoglobin ABG Carboxyhemoglobin POC ABG HHb (Measured) ABG Methemoglobin ABG O2 Capacity ABG Potassium VBG pH VBG pCO2 VBG HCO3 VBG Total CO2 VBG O2 Sat (Calc) VBG Base Excess VBG Potassium Hgb O2 Saturation Sodium Chloride Glucose Lactate Mechanical Rate FiO2 Tidal Volume PEEP Potassium Carbon Dioxide Anion Gap BUN Creatinine Est GFR ( Amer) Est GFR (Non-Af Amer) POC Glucose (mg/dL) 97 Random Glucose Hemoglobin A1c Lactic Acid Calcium Phosphorus Magnesium Total Bilirubin AST ALT Alkaline Phosphatase Troponin I Total Protein Albumin Globulin Albumin/Globulin Ratio Triglycerides Cholesterol LDL Cholesterol Direct HDL Cholesterol Free T4 Thyroxine (T4) TSH 3rd Generation Arterial Blood Potassium Venous Blood Potassium Blood Type Antibody Screen BBK History Checked Fingerstick Blood Sugar Results: 101 Assessment/Plan - Assessment and Plan (Free Text) Assessment: This is a 58 year old female with PMH of chronic respiratory insufficiency, severe COPD, DM, multiple sclerosis, myotonic dystrophy, hypothyroidism, and renal cancer presenting to the ICU for management of acute hypoxic respiratory failure requiring ventilator complicated by cardiopulmonary assist and sepsis secondary to likely UTI. Patient had code blue called and chest compressions performed with ROSC after approximately 15 minutes on 03/18. Overall prognosis is guarded. Plan: Neuro: -hypothermia protocol to end at 6pm today followed by re-warming -currently intubated -not on sedation and patient not arousable and non responsive Cardio: -maintain MAP>65 -will monitor vitals including HR and BP closely. BP currently in the 100s/50s and HR 50-60s -Echo shows EF 55-60%, RVSP 34, no preicardial effusion. Trace TR and MR -On amiodarone drip, previously in Vtach during code heart -On levophed and vasopressin drip. phenylephrine prn if needed -troponin today is 0.30 from 0.14 on presentation, likely due to cardiopulmonary arrest -EKG noted and reviewed, showed rate of 115 with right heart strain on presentation -Cardio consulted, Dr. Mcginnis Lungs: -vent settings of TV 400, PEEP 5, RR 20 and FiO2 80% (increased RR to 20 from 18 today due to retention of CO2) -SaO2 >90% -supplementary O2 PRN -solumedrol 40mg q8, xopenex -CXR today shows bibasilar subsegmental atelectasis -Pulm consulted, Dr. Leyva Renal: -maintain euvolemia -avoid nephrotoxic agents, hypochloremia -replace electrolytes as needed -BUN/Cr is 33/0.7, will monitor -dextrose 5% in 1/2NS @ 100 ml/hr -ABG on admission today reads pH/pO2/pCO2/bicarb of 7.53/47/34/28.4. Primary chronic respiratory alkalosis -VBG today reads pH/pCO2/bicarb 7.28/66/31 on FiO2 of 21. Acute on chronic nongap metabolic acidosis -U/A positive for leukocyte esterase, large bacteria, 20-25 WBC Heme: -Hg today is 11.9 -PT/INR/PTT yesterday: 18/08.14/23.7 -LE duplex shows no DVT in legs, limited study -DVT ppx with heparin 5k SC Endo: -maintain euglycemia -Gap of 15 on admission, no ketones in urine -Most recent glucose is 97 at approximately 14:00 -Insulin drip stopped today (total of approximately 172 units over last day) -currently on levemir 20 units q12 -A1c 9.7 -Endo consulted, Dr. De La Rosa ID: -WBC is 19.9, afebrile -On aztreonam, doxy and zyvox -blood culture, MRSA screen pending -ID consulted, Dr. Glynn -GI: -GI prophylaxis with protonix <Cook,Bilal - Last Filed: 03/19/18 15:48> CCU Objective - Vital Signs / Intake & Output Vital Signs (Last 4 hours): Vital Signs Temp Pulse BP Pulse Ox 03/19/18 15:30 60 138/108 H 100 03/19/18 15:00 134 H 123/94 H 100 03/19/18 14:30 89 87/49 L 100 03/19/18 14:20 90/33 L 03/19/18 14:19 83 100 03/19/18 14:16 140/109 H 03/19/18 14:15 87 100 03/19/18 14:01 108 H 143/55 L 100 03/19/18 14:00 87 95 03/19/18 13:30 133 H 134/53 L 100 03/19/18 13:00 123 H 104/66 100 03/19/18 12:51 124 H 79/64 L 98 03/19/18 12:30 100 H 85/61 L 100 03/19/18 12:17 115 H 110/61 100 03/19/18 12:00 91.4 F L 101 H 100 Intake and Output (Last 8hrs): Intake & Output 03/19/18 03/19/18 03/19/18 06:59 14:59 22:59 Intake Total 3163.0 287 Output Total 500 Balance 2663.0 287 Weight 154 lb 3.2 oz Intake: IV 3163.0 287 Right Femoral 2594 Oral 0 Output: Urine 500 Urethral (Carrera) 500 Other: # Bowel Movements 0 - Medications Active Medications: Active Medications Generic Name Dose Route Start Last Admin Trade Name Freq PRN Reason Stop Dose Admin Dextrose 0 ml 03/18/18 11:22 Dextrose 50% Inj IV STAT PRN Hypoglycemia Protocol Protocol Heparin Sodium (Porcine) 5,000 units 03/18/18 22:00 03/19/18 13:28 Heparin SC 5,000 units Q8 GABE Administration Protocol Dextrose 1,000 mls @ 0 mls/hr 03/18/18 11:22 Dextrose 5% In Water 1000 Ml IV .Q0M PRN Hypoglycemia Protocol Protocol Per Protocol NOREPINEPHRINE BIT/0.9 % NACL 4 mg in 250 mls @ 15 mls/hr 03/18/18 13:04 14:37 Levophed 4 Mg/ 250 Ml Ns Premixed IV 6.5 mcg/min .[id number] PRN 24.375 mls/hr TITRATE PER MD ORDER Titration Protocol 4 MCG/MIN Propofol 1,000 mg in 100 mls @ 1.817 mls/hr 03/18/18 14:23 03/19/18 09:25 Diprivan IV 0 mcg/kg/min .Q24H PRN 0 mls/hr TITRATE PER MD ORDER Titration Protocol 5 MCG/KG/MIN Aztreonam 100 mls @ 100 mls/hr 03/18/18 14:30 03/19/18 13:28 Azactam 1 Gm IVPB 03/23/18 14:31 100 mls/hr Q8 GABE Administration Protocol Amiodarone HCl/Dextrose 360 mg in 200 mls @ 16.667 mls/hr 03/18/18 20:15 07:07 Nexterone 360 Mg In D5w 200 Ml (Premix) IV 16.667 mls/hr .Q12H GABE Administration Protocol 0.5 MG/MIN Linezolid 600 mg in 300 mls @ 200 mls/hr 03/18/18 22:00 03/19/18 09:43 Zyvox 600mg/300ml D5w IVPB 03/25/18 22:01 200 mls/hr Q12 GABE Administration Protocol Dextrose/Sodium Chloride 1,000 mls @ 100 mls/hr 03/19/18 01:45 03/19/18 01:50 Dextrose 5%/0.45% Ns 1000 Ml IV 100 mls/hr .Q10H GABE Administration Phenylephrine HCl 40 mg/ 254 mls @ 38.1 mls/hr 03/19/18 07:41 Sodium Chloride IV .Q6H40M PRN TITRATE PER MD ORDER Protocol 100 MCG/MIN Vasopressin 20 units/ Sodium 101 mls @ 9.09 mls/hr 03/19/18 07:45 03/19/18 09 :43 Chloride IV 9.09 mls/hr .Q11H7M GABE Administration Protocol 0.03 U/MIN Doxycycline Hyclate 100 mg/ 100 mls @ 100 mls/hr 03/19/18 12:45 03/19/18 14: 05 Sodium Chloride IVPB 100 mls/hr Q12 GABE Administration Protocol Insulin Detemir 20 unit 03/20/18 08:00 Levemir SC Q12 GABE Levalbuterol HCl 1.25 mg 03/19/18 08:00 03/19/18 13:08 Xopenex IH 1.25 mg G2CEDTD GABE Administration Methylprednisolone 40 mg 03/18/18 14:00 03/19/18 13:34 Solu-Medrol IVP 40 mg Q8 GABE Administration Pantoprazole Sodium 40 mg 03/18/18 14:45 03/19/18 09:44 Protonix Inj IVP 40 mg DAILY GABE Administration - Patient Studies Lab Studies: Lab Studies 03/19/18 03/19/18 03/19/18 Range/Units 13:27 12:36 11:48 WBC (4.5-11.0) 10^3/ul RBC (3.5-6.1) 10^6/uL Hgb (12.0-16.0) g/dL Hct (36.0-48.0) % MCV (80.0-105.0) fl MCH (25.0-35.0) pg MCHC (31.0-37.0) g/dl RDW (11.5-14.5) % Plt Count (120.0-450.0) 10^3/uL MPV (7.0-11.0) fl Gran % (50.0-68.0) % Lymph % (Auto) (22.0-35.0) % [place] % (Auto) (1.0-6.0) % Eos % (Auto) (1.5-5.0) % Baso % (Auto) (0.0-3.0) % Gran # (1.4-6.5) Lymph # (Auto) (1.2-3.4) [place] # (Auto) (0.1-0.6) Eos # (Auto) (0.0-0.7) Baso # (Auto) (0.0-2.0) K/mm3 Neutrophils % (Manual) (50.0-70.0) % Band Neutrophils % (0-2) % Lymphocytes % (Manual) (22.0-35.0) % Monocytes % (Manual) (1.0-6.0) % Platelet Evaluation (NORMAL) Hypochromasia Anisocytosis (manual) pCO2 (35-45) mm/Hg pO2 48 (30-55) mm/Hg HCO3 (21-28) mmol/L ABG pH (7.35-7.45) ABG Total CO2 (22-28) mmol.L ABG O2 Saturation (95-98) % ABG O2 Content (15-23) ML/dl ABG Base Excess (-2.0-3.0) mmol/L ABG Hemoglobin (11.7-17.4) g/dL ABG Carboxyhemoglobin (0.5-1.5) % POC ABG HHb (Measured) (0-5) % ABG Methemoglobin (0.0-3.0) % ABG O2 Capacity (16-24) mL/dl VBG pH 7.28 L (7.32-7.43) VBG pCO2 66.0 H* (40-60) VBG HCO3 31.0 H (21-28) mmol/l VBG Total CO2 33.0 H (22-28) mmol.L VBG O2 Sat (Calc) 82.8 H (40-65) % VBG Base Excess 2.4 H (0.0-2.0) mmol/L VBG Potassium 3.6 (3.6-5.2) mmol/L Hgb O2 Saturation (95.0-98.0) % Sodium 141.0 (132-148) mmol/L Chloride 102.0 (98-107) mmol/L Glucose 103 (65-105) mg/dl Lactate 3.8 H (0.7-2.1) mmol/L FiO2 21.0 % Potassium (3.6-5.0) mmol/L Carbon Dioxide (21-33) mmol/L Anion Gap (10-20) BUN (7-21) mg/dL Creatinine (0.7-1.2) mg/dl Est GFR ( Amer) Est GFR (Non-Af Amer) POC Glucose (mg/dL) 97 92 (65-110) mg/dL Random Glucose (70-110) mg/dL Hemoglobin A1c (4.2-6.5) % Lactic Acid (0.7-2.1) mmol/L Calcium (8.4-10.5) mg/dL Phosphorus (2.5-4.5) mg/dL Magnesium (1.7-2.2) mg/dL Total Bilirubin (0.2-1.3) mg/dL AST (14-36) U/L ALT (7-56) U/L Alkaline Phosphatase (38-126) U/L Troponin I ng/mL Total Protein (5.8-8.3) g/dL Albumin (3.0-4.8) g/dL Globulin gm/dL Albumin/Globulin Ratio (1.1-1.8) Triglycerides (35-160) mg/dL Cholesterol (130-200) mg/dL LDL Cholesterol Direct (0-129) mg/dL HDL Cholesterol (29-60) mg/dL Free T4 (0.78-2.19) ng/dL Thyroxine (T4) (5.5-11.0) ug/dL TSH 3rd Generation (0.46-4.68) mIU/mL Venous Blood Potassium 3.6 (3.6-5.2) mmol/L Blood Type Antibody Screen BBK History Checked 03/19/18 03/19/18 03/19/18 Range/Units 11:48 11:43 11:41 WBC (4.5-11.0) 10^3/ul RBC (3.5-6.1) 10^6/uL Hgb (12.0-16.0) g/dL Hct (36.0-48.0) % MCV (80.0-105.0) fl MCH (25.0-35.0) pg MCHC (31.0-37.0) g/dl RDW (11.5-14.5) % Plt Count (120.0-450.0) 10^3/uL MPV (7.0-11.0) fl Gran % (50.0-68.0) % Lymph % (Auto) (22.0-35.0) % [place] % (Auto) (1.0-6.0) % Eos % (Auto) (1.5-5.0) % Baso % (Auto) (0.0-3.0) % Gran # (1.4-6.5) Lymph # (Auto) (1.2-3.4) [place] # (Auto) (0.1-0.6) Eos # (Auto) (0.0-0.7) Baso # (Auto) (0.0-2.0) K/mm3 Neutrophils % (Manual) (50.0-70.0) % Band Neutrophils % (0-2) % Lymphocytes % (Manual) (22.0-35.0) % Monocytes % (Manual) (1.0-6.0) % Platelet Evaluation (NORMAL) Hypochromasia Anisocytosis (manual) pCO2 (35-45) mm/Hg pO2 (30-55) mm/Hg HCO3 (21-28) mmol/L ABG pH (7.35-7.45) ABG Total CO2 (22-28) mmol.L ABG O2 Saturation (95-98) % ABG O2 Content (15-23) ML/dl ABG Base Excess (-2.0-3.0) mmol/L ABG Hemoglobin (11.7-17.4) g/dL ABG Carboxyhemoglobin (0.5-1.5) % POC ABG HHb (Measured) (0-5) % ABG Methemoglobin (0.0-3.0) % ABG O2 Capacity (16-24) mL/dl VBG pH (7.32-7.43) VBG pCO2 (40-60) VBG HCO3 (21-28) mmol/l VBG Total CO2 (22-28) mmol.L VBG O2 Sat (Calc) (40-65) % VBG Base Excess (0.0-2.0) mmol/L VBG Potassium (3.6-5.2) mmol/L Hgb O2 Saturation (95.0-98.0) % Sodium 144 (132-148) mmol/L Chloride 101 (98-107) mmol/L Glucose (65-105) mg/dl Lactate (0.7-2.1) mmol/L FiO2 % Potassium 3.8 (3.6-5.0) mmol/L Carbon Dioxide 33 (21-33) mmol/L Anion Gap 13 (10-20) BUN 33 H (7-21) mg/dL Creatinine 0.7 (0.7-1.2) mg/dl Est GFR ( Amer) > 60 Est GFR (Non-Af Amer) > 60 POC Glucose (mg/dL) 95 403 H* (65-110) mg/dL Random Glucose 111 H (70-110) mg/dL Hemoglobin A1c (4.2-6.5) % Lactic Acid (0.7-2.1) mmol/L Calcium 8.3 L (8.4-10.5) mg/dL Phosphorus (2.5-4.5) mg/dL Magnesium (1.7-2.2) mg/dL Total Bilirubin (0.2-1.3) mg/dL AST (14-36) U/L ALT (7-56) U/L Alkaline Phosphatase (38-126) U/L Troponin I ng/mL Total Protein (5.8-8.3) g/dL Albumin (3.0-4.8) g/dL Globulin gm/dL Albumin/Globulin Ratio (1.1-1.8) Triglycerides (35-160) mg/dL Cholesterol (130-200) mg/dL LDL Cholesterol Direct (0-129) mg/dL HDL Cholesterol (29-60) mg/dL Free T4 (0.78-2.19) ng/dL Thyroxine (T4) (5.5-11.0) ug/dL TSH 3rd Generation (0.46-4.68) mIU/mL Venous Blood Potassium (3.6-5.2) mmol/L Blood Type Antibody Screen BBK History Checked 03/19/18 03/19/18 03/19/18 Range/Units 10:40 09:44 08:49 WBC (4.5-11.0) 10^3/ul RBC (3.5-6.1) 10^6/uL Hgb (12.0-16.0) g/dL Hct (36.0-48.0) % MCV (80.0-105.0) fl MCH (25.0-35.0) pg MCHC (31.0-37.0) g/dl RDW (11.5-14.5) % Plt Count (120.0-450.0) 10^3/uL MPV (7.0-11.0) fl Gran % (50.0-68.0) % Lymph % (Auto) (22.0-35.0) % [place] % (Auto) (1.0-6.0) % Eos % (Auto) (1.5-5.0) % Baso % (Auto) (0.0-3.0) % Gran # (1.4-6.5) Lymph # (Auto) (1.2-3.4) [place] # (Auto) (0.1-0.6) Eos # (Auto) (0.0-0.7) Baso # (Auto) (0.0-2.0) K/mm3 Neutrophils % (Manual) (50.0-70.0) % Band Neutrophils % (0-2) % Lymphocytes % (Manual) (22.0-35.0) % Monocytes % (Manual) (1.0-6.0) % Platelet Evaluation (NORMAL) Hypochromasia Anisocytosis (manual) pCO2 (35-45) mm/Hg pO2 (30-55) mm/Hg HCO3 (21-28) mmol/L ABG pH (7.35-7.45) ABG Total CO2 (22-28) mmol.L ABG O2 Saturation (95-98) % ABG O2 Content (15-23) ML/dl ABG Base Excess (-2.0-3.0) mmol/L ABG Hemoglobin (11.7-17.4) g/dL ABG Carboxyhemoglobin (0.5-1.5) % POC ABG HHb (Measured) (0-5) % ABG Methemoglobin (0.0-3.0) % ABG O2 Capacity (16-24) mL/dl VBG pH (7.32-7.43) VBG pCO2 (40-60) VBG HCO3 (21-28) mmol/l VBG Total CO2 (22-28) mmol.L VBG O2 Sat (Calc) (40-65) % VBG Base Excess (0.0-2.0) mmol/L VBG Potassium (3.6-5.2) mmol/L Hgb O2 Saturation (95.0-98.0) % Sodium (132-148) mmol/L Chloride (98-107) mmol/L Glucose (65-105) mg/dl Lactate (0.7-2.1) mmol/L FiO2 % Potassium (3.6-5.0) mmol/L Carbon Dioxide (21-33) mmol/L Anion Gap (10-20) BUN (7-21) mg/dL Creatinine (0.7-1.2) mg/dl Est GFR ( Amer) Est GFR (Non-Af Amer) POC Glucose (mg/dL) 101 80 112 H (65-110) mg/dL Random Glucose (70-110) mg/dL Hemoglobin A1c (4.2-6.5) % Lactic Acid (0.7-2.1) mmol/L Calcium (8.4-10.5) mg/dL Phosphorus (2.5-4.5) mg/dL Magnesium (1.7-2.2) mg/dL Total Bilirubin (0.2-1.3) mg/dL AST (14-36) U/L ALT (7-56) U/L Alkaline Phosphatase (38-126) U/L Troponin I ng/mL Total Protein (5.8-8.3) g/dL Albumin (3.0-4.8) g/dL Globulin gm/dL Albumin/Globulin Ratio (1.1-1.8) Triglycerides (35-160) mg/dL Cholesterol (130-200) mg/dL LDL Cholesterol Direct (0-129) mg/dL HDL Cholesterol (29-60) mg/dL Free T4 (0.78-2.19) ng/dL Thyroxine (T4) (5.5-11.0) ug/dL TSH 3rd Generation (0.46-4.68) mIU/mL Venous Blood Potassium (3.6-5.2) mmol/L Blood Type Antibody Screen BBK History Checked 03/19/18 03/19/18 03/19/18 Range/Units 07:44 05:46 05:45 WBC (4.5-11.0) 10^3/ul RBC (3.5-6.1) 10^6/uL Hgb (12.0-16.0) g/dL Hct (36.0-48.0) % MCV (80.0-105.0) fl MCH (25.0-35.0) pg MCHC (31.0-37.0) g/dl RDW (11.5-14.5) % Plt Count (120.0-450.0) 10^3/uL MPV (7.0-11.0) fl Gran % (50.0-68.0) % Lymph % (Auto) (22.0-35.0) % [place] % (Auto) (1.0-6.0) % Eos % (Auto) (1.5-5.0) % Baso % (Auto) (0.0-3.0) % Gran # (1.4-6.5) Lymph # (Auto) (1.2-3.4) [place] # (Auto) (0.1-0.6) Eos # (Auto) (0.0-0.7) Baso # (Auto) (0.0-2.0) K/mm3 Neutrophils % (Manual) (50.0-70.0) % Band Neutrophils % (0-2) % Lymphocytes % (Manual) (22.0-35.0) % Monocytes % (Manual) (1.0-6.0) % Platelet Evaluation (NORMAL) Hypochromasia Anisocytosis (manual) pCO2 (35-45) mm/Hg pO2 142 H (30-55) mm/Hg HCO3 (21-28) mmol/L ABG pH (7.35-7.45) ABG Total CO2 (22-28) mmol.L ABG O2 Saturation (95-98) % ABG O2 Content (15-23) ML/dl ABG Base Excess (-2.0-3.0) mmol/L ABG Hemoglobin (11.7-17.4) g/dL ABG Carboxyhemoglobin (0.5-1.5) % POC ABG HHb (Measured) (0-5) % ABG Methemoglobin (0.0-3.0) % ABG O2 Capacity (16-24) mL/dl VBG pH 7.43 (7.32-7.43) VBG pCO2 42.0 (40-60) VBG HCO3 27.9 (21-28) mmol/l VBG Total CO2 29.2 H (22-28) mmol.L VBG O2 Sat (Calc) 98.1 H (40-65) % VBG Base Excess 3.2 H (0.0-2.0) mmol/L VBG Potassium 3.9 (3.6-5.2) mmol/L Hgb O2 Saturation (95.0-98.0) % Sodium 143.0 (132-148) mmol/L Chloride 110.0 H (98-107) mmol/L Glucose 82 (65-105) mg/dl Lactate 4.5 H* (0.7-2.1) mmol/L FiO2 21.0 % Potassium (3.6-5.0) mmol/L Carbon Dioxide (21-33) mmol/L Anion Gap (10-20) BUN (7-21) mg/dL Creatinine (0.7-1.2) mg/dl Est GFR ( Amer) Est GFR (Non-Af Amer) POC Glucose (mg/dL) 87 (65-110) mg/dL Random Glucose (70-110) mg/dL Hemoglobin A1c 9.7 H D (4.2-6.5) % Lactic Acid (0.7-2.1) mmol/L Calcium (8.4-10.5) mg/dL Phosphorus (2.5-4.5) mg/dL Magnesium (1.7-2.2) mg/dL Total Bilirubin (0.2-1.3) mg/dL AST (14-36) U/L ALT (7-56) U/L Alkaline Phosphatase (38-126) U/L Troponin I ng/mL Total Protein (5.8-8.3) g/dL Albumin (3.0-4.8) g/dL Globulin gm/dL Albumin/Globulin Ratio (1.1-1.8) Triglycerides (35-160) mg/dL Cholesterol (130-200) mg/dL LDL Cholesterol Direct (0-129) mg/dL HDL Cholesterol (29-60) mg/dL Free T4 (0.78-2.19) ng/dL Thyroxine (T4) (5.5-11.0) ug/dL TSH 3rd Generation (0.46-4.68) mIU/mL Venous Blood Potassium 3.9 (3.6-5.2) mmol/L Blood Type Antibody Screen BBK History Checked 03/19/18 03/19/18 03/19/18 Range/Units 05:45 05:45 05:45 WBC (4.5-11.0) 10^3/ul RBC (3.5-6.1) 10^6/uL Hgb (12.0-16.0) g/dL Hct (36.0-48.0) % MCV (80.0-105.0) fl MCH (25.0-35.0) pg MCHC (31.0-37.0) g/dl RDW (11.5-14.5) % Plt Count (120.0-450.0) 10^3/uL MPV (7.0-11.0) fl Gran % (50.0-68.0) % Lymph % (Auto) (22.0-35.0) % [place] % (Auto) (1.0-6.0) % Eos % (Auto) (1.5-5.0) % Baso % (Auto) (0.0-3.0) % Gran # (1.4-6.5) Lymph # (Auto) (1.2-3.4) [place] # (Auto) (0.1-0.6) Eos # (Auto) (0.0-0.7) Baso # (Auto) (0.0-2.0) K/mm3 Neutrophils % (Manual) (50.0-70.0) % Band Neutrophils % (0-2) % Lymphocytes % (Manual) (22.0-35.0) % Monocytes % (Manual) (1.0-6.0) % Platelet Evaluation (NORMAL) Hypochromasia Anisocytosis (manual) pCO2 (35-45) mm/Hg pO2 (30-55) mm/Hg HCO3 (21-28) mmol/L ABG pH (7.35-7.45) ABG Total CO2 (22-28) mmol.L ABG O2 Saturation (95-98) % ABG O2 Content (15-23) ML/dl ABG Base Excess (-2.0-3.0) mmol/L ABG Hemoglobin (11.7-17.4) g/dL ABG Carboxyhemoglobin (0.5-1.5) % POC ABG HHb (Measured) (0-5) % ABG Methemoglobin (0.0-3.0) % ABG O2 Capacity (16-24) mL/dl VBG pH (7.32-7.43) VBG pCO2 (40-60) VBG HCO3 (21-28) mmol/l VBG Total CO2 (22-28) mmol.L VBG O2 Sat (Calc) (40-65) % VBG Base Excess (0.0-2.0) mmol/L VBG Potassium (3.6-5.2) mmol/L Hgb O2 Saturation (95.0-98.0) % Sodium 146 (132-148) mmol/L Chloride 107 (98-107) mmol/L Glucose (65-105) mg/dl Lactate (0.7-2.1) mmol/L FiO2 % Potassium 4.0 (3.6-5.0) mmol/L Carbon Dioxide 30 (21-33) mmol/L Anion Gap 13 (10-20) BUN 36 H (7-21) mg/dL Creatinine 0.8 (0.7-1.2) mg/dl Est GFR ( Amer) > 60 Est GFR (Non-Af Amer) > 60 POC Glucose (mg/dL) (65-110) mg/dL Random Glucose 88 (70-110) mg/dL Hemoglobin A1c (4.2-6.5) % Lactic Acid 4.2 H* (0.7-2.1) mmol/L Calcium 8.1 L (8.4-10.5) mg/dL Phosphorus 2.3 L (2.5-4.5) mg/dL Magnesium 2.2 (1.7-2.2) mg/dL Total Bilirubin 0.3 (0.2-1.3) mg/dL AST 4918 H (14-36) U/L ALT 1827 H (7-56) U/L Alkaline Phosphatase 99 (38-126) U/L Troponin I 0.30 H* ng/mL Total Protein 5.4 L (5.8-8.3) g/dL Albumin 2.7 L (3.0-4.8) g/dL Globulin 2.7 gm/dL Albumin/Globulin Ratio 1.0 L (1.1-1.8) Triglycerides 192 H (35-160) mg/dL Cholesterol 97 L (130-200) mg/dL LDL Cholesterol Direct < 30 (0-129) mg/dL HDL Cholesterol 38 (29-60) mg/dL Free T4 1.82 (0.78-2.19) ng/dL Thyroxine (T4) 7.7 (5.5-11.0) ug/dL TSH 3rd Generation 1.29 (0.46-4.68) mIU/mL Venous Blood Potassium (3.6-5.2) mmol/L Blood Type Antibody Screen BBK History Checked 03/19/18 03/19/18 03/19/18 Range/Units 05:45 05:39 05:18 WBC 19.9 H (4.5-11.0) 10^3/ul RBC 4.12 (3.5-6.1) 10^6/uL Hgb 11.9 L (12.0-16.0) g/dL Hct 37.4 (36.0-48.0) % MCV 90.8 D (80.0-105.0) fl MCH 28.9 (25.0-35.0) pg MCHC 31.8 (31.0-37.0) g/dl RDW 14.6 H (11.5-14.5) % Plt Count 285 (120.0-450.0) 10^3/uL MPV 12.3 H (7.0-11.0) fl Gran % (50.0-68.0) % Lymph % (Auto) (22.0-35.0) % [place] % (Auto) (1.0-6.0) % Eos % (Auto) (1.5-5.0) % Baso % (Auto) (0.0-3.0) % Gran # (1.4-6.5) Lymph # (Auto) (1.2-3.4) [place] # (Auto) (0.1-0.6) Eos # (Auto) (0.0-0.7) Baso # (Auto) (0.0-2.0) K/mm3 Neutrophils % (Manual) (50.0-70.0) % Band Neutrophils % (0-2) % Lymphocytes % (Manual) (22.0-35.0) % Monocytes % (Manual) (1.0-6.0) % Platelet Evaluation (NORMAL) Hypochromasia Anisocytosis (manual) pCO2 46 H (35-45) mm/Hg pO2 113.0 H (30-55) mm/Hg HCO3 27.8 (21-28) mmol/L ABG pH 7.39 (7.35-7.45) ABG Total CO2 29.2 H (22-28) mmol.L ABG O2 Saturation 97.6 (95-98) % ABG O2 Content 16.0 (15-23) ML/dl ABG Base Excess 2.3 (-2.0-3.0) mmol/L ABG Hemoglobin 11.6 L (11.7-17.4) g/dL ABG Carboxyhemoglobin 0.1 L (0.5-1.5) % POC ABG HHb (Measured) 2.4 (0-5) % ABG Methemoglobin 0.7 (0.0-3.0) % ABG O2 Capacity 16.4 (16-24) mL/dl VBG pH (7.32-7.43) VBG pCO2 (40-60) VBG HCO3 (21-28) mmol/l VBG Total CO2 (22-28) mmol.L VBG O2 Sat (Calc) (40-65) % VBG Base Excess (0.0-2.0) mmol/L VBG Potassium (3.6-5.2) mmol/L Hgb O2 Saturation 96.8 (95.0-98.0) % Sodium (132-148) mmol/L Chloride (98-107) mmol/L Glucose (65-105) mg/dl Lactate (0.7-2.1) mmol/L FiO2 80.0 % Potassium (3.6-5.0) mmol/L Carbon Dioxide (21-33) mmol/L Anion Gap (10-20) BUN (7-21) mg/dL Creatinine (0.7-1.2) mg/dl Est GFR ( Amer) Est GFR (Non-Af Amer) POC Glucose (mg/dL) 77 (65-110) mg/dL Random Glucose (70-110) mg/dL Hemoglobin A1c (4.2-6.5) % Lactic Acid (0.7-2.1) mmol/L Calcium (8.4-10.5) mg/dL Phosphorus (2.5-4.5) mg/dL Magnesium (1.7-2.2) mg/dL Total Bilirubin (0.2-1.3) mg/dL AST (14-36) U/L ALT (7-56) U/L Alkaline Phosphatase (38-126) U/L Troponin I ng/mL Total Protein (5.8-8.3) g/dL Albumin (3.0-4.8) g/dL Globulin gm/dL Albumin/Globulin Ratio (1.1-1.8) Triglycerides (35-160) mg/dL Cholesterol (130-200) mg/dL LDL Cholesterol Direct (0-129) mg/dL HDL Cholesterol (29-60) mg/dL Free T4 (0.78-2.19) ng/dL Thyroxine (T4) (5.5-11.0) ug/dL TSH 3rd Generation (0.46-4.68) mIU/mL Venous Blood Potassium (3.6-5.2) mmol/L Blood Type Antibody Screen BBK History Checked 03/19/18 03/19/18 03/19/18 Range/Units 04:42 03:56 02:24 WBC (4.5-11.0) 10^3/ul RBC (3.5-6.1) 10^6/uL Hgb (12.0-16.0) g/dL Hct (36.0-48.0) % MCV (80.0-105.0) fl MCH (25.0-35.0) pg MCHC (31.0-37.0) g/dl RDW (11.5-14.5) % Plt Count (120.0-450.0) 10^3/uL MPV (7.0-11.0) fl Gran % (50.0-68.0) % Lymph % (Auto) (22.0-35.0) % [place] % (Auto) (1.0-6.0) % Eos % (Auto) (1.5-5.0) % Baso % (Auto) (0.0-3.0) % Gran # (1.4-6.5) Lymph # (Auto) (1.2-3.4) [place] # (Auto) (0.1-0.6) Eos # (Auto) (0.0-0.7) Baso # (Auto) (0.0-2.0) K/mm3 Neutrophils % (Manual) (50.0-70.0) % Band Neutrophils % (0-2) % Lymphocytes % (Manual) (22.0-35.0) % Monocytes % (Manual) (1.0-6.0) % Platelet Evaluation (NORMAL) Hypochromasia Anisocytosis (manual) pCO2 (35-45) mm/Hg pO2 (30-55) mm/Hg HCO3 (21-28) mmol/L ABG pH (7.35-7.45) ABG Total CO2 (22-28) mmol.L ABG O2 Saturation (95-98) % ABG O2 Content (15-23) ML/dl ABG Base Excess (-2.0-3.0) mmol/L ABG Hemoglobin (11.7-17.4) g/dL ABG Carboxyhemoglobin (0.5-1.5) % POC ABG HHb (Measured) (0-5) % ABG Methemoglobin (0.0-3.0) % ABG O2 Capacity (16-24) mL/dl VBG pH (7.32-7.43) VBG pCO2 (40-60) VBG HCO3 (21-28) mmol/l VBG Total CO2 (22-28) mmol.L VBG O2 Sat (Calc) (40-65) % VBG Base Excess (0.0-2.0) mmol/L VBG Potassium (3.6-5.2) mmol/L Hgb O2 Saturation (95.0-98.0) % Sodium (132-148) mmol/L Chloride (98-107) mmol/L Glucose (65-105) mg/dl Lactate (0.7-2.1) mmol/L FiO2 % Potassium (3.6-5.0) mmol/L Carbon Dioxide (21-33) mmol/L Anion Gap (10-20) BUN (7-21) mg/dL Creatinine (0.7-1.2) mg/dl Est GFR ( Amer) Est GFR (Non-Af Amer) POC Glucose (mg/dL) 153 H 208 H 242 H (65-110) mg/dL Random Glucose (70-110) mg/dL Hemoglobin A1c (4.2-6.5) % Lactic Acid (0.7-2.1) mmol/L Calcium (8.4-10.5) mg/dL Phosphorus (2.5-4.5) mg/dL Magnesium (1.7-2.2) mg/dL Total Bilirubin (0.2-1.3) mg/dL AST (14-36) U/L ALT (7-56) U/L Alkaline Phosphatase (38-126) U/L Troponin I ng/mL Total Protein (5.8-8.3) g/dL Albumin (3.0-4.8) g/dL Globulin gm/dL Albumin/Globulin Ratio (1.1-1.8) Triglycerides (35-160) mg/dL Cholesterol (130-200) mg/dL LDL Cholesterol Direct (0-129) mg/dL HDL Cholesterol (29-60) mg/dL Free T4 (0.78-2.19) ng/dL Thyroxine (T4) (5.5-11.0) ug/dL TSH 3rd Generation (0.46-4.68) mIU/mL Venous Blood Potassium (3.6-5.2) mmol/L Blood Type Antibody Screen BBK History Checked 03/19/18 03/19/18 03/19/18 Range/Units 01:25 01:25 01:22 WBC (4.5-11.0) 10^3/ul RBC (3.5-6.1) 10^6/uL Hgb (12.0-16.0) g/dL Hct (36.0-48.0) % MCV (80.0-105.0) fl MCH (25.0-35.0) pg MCHC (31.0-37.0) g/dl RDW (11.5-14.5) % Plt Count (120.0-450.0) 10^3/uL MPV (7.0-11.0) fl Gran % (50.0-68.0) % Lymph % (Auto) (22.0-35.0) % [place] % (Auto) (1.0-6.0) % Eos % (Auto) (1.5-5.0) % Baso % (Auto) (0.0-3.0) % Gran # (1.4-6.5) Lymph # (Auto) (1.2-3.4) [place] # (Auto) (0.1-0.6) Eos # (Auto) (0.0-0.7) Baso # (Auto) (0.0-2.0) K/mm3 Neutrophils % (Manual) (50.0-70.0) % Band Neutrophils % (0-2) % Lymphocytes % (Manual) (22.0-35.0) % Monocytes % (Manual) (1.0-6.0) % Platelet Evaluation (NORMAL) Hypochromasia Anisocytosis (manual) pCO2 (35-45) mm/Hg pO2 (30-55) mm/Hg HCO3 (21-28) mmol/L ABG pH (7.35-7.45) ABG Total CO2 (22-28) mmol.L ABG O2 Saturation (95-98) % ABG O2 Content (15-23) ML/dl ABG Base Excess (-2.0-3.0) mmol/L ABG Hemoglobin (11.7-17.4) g/dL ABG Carboxyhemoglobin (0.5-1.5) % POC ABG HHb (Measured) (0-5) % ABG Methemoglobin (0.0-3.0) % ABG O2 Capacity (16-24) mL/dl VBG pH (7.32-7.43) VBG pCO2 (40-60) VBG HCO3 (21-28) mmol/l VBG Total CO2 (22-28) mmol.L VBG O2 Sat (Calc) (40-65) % VBG Base Excess (0.0-2.0) mmol/L VBG Potassium (3.6-5.2) mmol/L Hgb O2 Saturation (95.0-98.0) % Sodium 149 H (132-148) mmol/L Chloride 107 (98-107) mmol/L Glucose (65-105) mg/dl Lactate (0.7-2.1) mmol/L FiO2 % Potassium 3.1 L (3.6-5.0) mmol/L Carbon Dioxide 27 (21-33) mmol/L Anion Gap 17 (10-20) BUN 39 H (7-21) mg/dL Creatinine 0.8 (0.7-1.2) mg/dl Est GFR ( Amer) > 60 Est GFR (Non-Af Amer) > 60 POC Glucose (mg/dL) 216 H (65-110) mg/dL Random Glucose 225 H (70-110) mg/dL Hemoglobin A1c (4.2-6.5) % Lactic Acid 5.7 H* (0.7-2.1) mmol/L Calcium 8.2 L (8.4-10.5) mg/dL Phosphorus (2.5-4.5) mg/dL Magnesium (1.7-2.2) mg/dL Total Bilirubin (0.2-1.3) mg/dL AST (14-36) U/L ALT (7-56) U/L Alkaline Phosphatase (38-126) U/L Troponin I 0.33 H* D ng/mL Total Protein (5.8-8.3) g/dL Albumin (3.0-4.8) g/dL Globulin gm/dL Albumin/Globulin Ratio (1.1-1.8) Triglycerides (35-160) mg/dL Cholesterol (130-200) mg/dL LDL Cholesterol Direct (0-129) mg/dL HDL Cholesterol (29-60) mg/dL Free T4 (0.78-2.19) ng/dL Thyroxine (T4) (5.5-11.0) ug/dL TSH 3rd Generation (0.46-4.68) mIU/mL Venous Blood Potassium (3.6-5.2) mmol/L Blood Type Antibody Screen BBK History Checked 03/19/18 03/18/18 03/18/18 Range/Units 00:22 23:29 22:46 WBC (4.5-11.0) 10^3/ul RBC (3.5-6.1) 10^6/uL Hgb (12.0-16.0) g/dL Hct (36.0-48.0) % MCV (80.0-105.0) fl MCH (25.0-35.0) pg MCHC (31.0-37.0) g/dl RDW (11.5-14.5) % Plt Count (120.0-450.0) 10^3/uL MPV (7.0-11.0) fl Gran % (50.0-68.0) % Lymph % (Auto) (22.0-35.0) % [place] % (Auto) (1.0-6.0) % Eos % (Auto) (1.5-5.0) % Baso % (Auto) (0.0-3.0) % Gran # (1.4-6.5) Lymph # (Auto) (1.2-3.4) [place] # (Auto) (0.1-0.6) Eos # (Auto) (0.0-0.7) Baso # (Auto) (0.0-2.0) K/mm3 Neutrophils % (Manual) (50.0-70.0) % Band Neutrophils % (0-2) % Lymphocytes % (Manual) (22.0-35.0) % Monocytes % (Manual) (1.0-6.0) % Platelet Evaluation (NORMAL) Hypochromasia Anisocytosis (manual) pCO2 (35-45) mm/Hg pO2 (30-55) mm/Hg HCO3 (21-28) mmol/L ABG pH (7.35-7.45) ABG Total CO2 (22-28) mmol.L ABG O2 Saturation (95-98) % ABG O2 Content (15-23) ML/dl ABG Base Excess (-2.0-3.0) mmol/L ABG Hemoglobin (11.7-17.4) g/dL ABG Carboxyhemoglobin (0.5-1.5) % POC ABG HHb (Measured) (0-5) % ABG Methemoglobin (0.0-3.0) % ABG O2 Capacity (16-24) mL/dl VBG pH (7.32-7.43) VBG pCO2 (40-60) VBG HCO3 (21-28) mmol/l VBG Total CO2 (22-28) mmol.L VBG O2 Sat (Calc) (40-65) % VBG Base Excess (0.0-2.0) mmol/L VBG Potassium (3.6-5.2) mmol/L Hgb O2 Saturation (95.0-98.0) % Sodium (132-148) mmol/L Chloride (98-107) mmol/L Glucose (65-105) mg/dl Lactate (0.7-2.1) mmol/L FiO2 % Potassium (3.6-5.0) mmol/L Carbon Dioxide (21-33) mmol/L Anion Gap (10-20) BUN (7-21) mg/dL Creatinine (0.7-1.2) mg/dl Est GFR ( Amer) Est GFR (Non-Af Amer) POC Glucose (mg/dL) 374 H 464 H* 460 H* (65-110) mg/dL Random Glucose (70-110) mg/dL Hemoglobin A1c (4.2-6.5) % Lactic Acid (0.7-2.1) mmol/L Calcium (8.4-10.5) mg/dL Phosphorus (2.5-4.5) mg/dL Magnesium (1.7-2.2) mg/dL Total Bilirubin (0.2-1.3) mg/dL AST (14-36) U/L ALT (7-56) U/L Alkaline Phosphatase (38-126) U/L Troponin I ng/mL Total Protein (5.8-8.3) g/dL Albumin (3.0-4.8) g/dL Globulin gm/dL Albumin/Globulin Ratio (1.1-1.8) Triglycerides (35-160) mg/dL Cholesterol (130-200) mg/dL LDL Cholesterol Direct (0-129) mg/dL HDL Cholesterol (29-60) mg/dL Free T4 (0.78-2.19) ng/dL Thyroxine (T4) (5.5-11.0) ug/dL TSH 3rd Generation (0.46-4.68) mIU/mL Venous Blood Potassium (3.6-5.2) mmol/L Blood Type Antibody Screen BBK History Checked 03/18/18 03/18/18 03/18/18 Range/Units 22:08 22:00 21:43 WBC (4.5-11.0) 10^3/ul RBC (3.5-6.1) 10^6/uL Hgb (12.0-16.0) g/dL Hct (36.0-48.0) % MCV (80.0-105.0) fl MCH (25.0-35.0) pg MCHC (31.0-37.0) g/dl RDW (11.5-14.5) % Plt Count (120.0-450.0) 10^3/uL MPV (7.0-11.0) fl Gran % (50.0-68.0) % Lymph % (Auto) (22.0-35.0) % [place] % (Auto) (1.0-6.0) % Eos % (Auto) (1.5-5.0) % Baso % (Auto) (0.0-3.0) % Gran # (1.4-6.5) Lymph # (Auto) (1.2-3.4) [place] # (Auto) (0.1-0.6) Eos # (Auto) (0.0-0.7) Baso # (Auto) (0.0-2.0) K/mm3 Neutrophils % (Manual) (50.0-70.0) % Band Neutrophils % (0-2) % Lymphocytes % (Manual) (22.0-35.0) % Monocytes % (Manual) (1.0-6.0) % Platelet Evaluation (NORMAL) Hypochromasia Anisocytosis (manual) pCO2 (35-45) mm/Hg pO2 167 H (30-55) mm/Hg HCO3 (21-28) mmol/L ABG pH (7.35-7.45) ABG Total CO2 (22-28) mmol.L ABG O2 Saturation (95-98) % ABG O2 Content (15-23) ML/dl ABG Base Excess (-2.0-3.0) mmol/L ABG Hemoglobin (11.7-17.4) g/dL ABG Carboxyhemoglobin (0.5-1.5) % POC ABG HHb (Measured) (0-5) % ABG Methemoglobin (0.0-3.0) % ABG O2 Capacity (16-24) mL/dl VBG pH 7.31 L (7.32-7.43) VBG pCO2 47.0 (40-60) VBG HCO3 23.7 (21-28) mmol/l VBG Total CO2 25.1 (22-28) mmol.L VBG O2 Sat (Calc) 98.7 H (40-65) % VBG Base Excess -2.9 L (0.0-2.0) mmol/L VBG Potassium 3.2 L (3.6-5.2) mmol/L Hgb O2 Saturation (95.0-98.0) % Sodium 149 H 147.0 (132-148) mmol/L Chloride 107 108.0 H (98-107) mmol/L Glucose 383 H (65-105) mg/dl Lactate 7.3 H* (0.7-2.1) mmol/L FiO2 21.0 % Potassium 3.3 L (3.6-5.0) mmol/L Carbon Dioxide 25 (21-33) mmol/L Anion Gap 20 (10-20) BUN 41 H (7-21) mg/dL Creatinine 1.0 (0.7-1.2) mg/dl Est GFR ( Amer) > 60 Est GFR (Non-Af Amer) 57 POC Glucose (mg/dL) 465 H* (65-110) mg/dL Random Glucose 366 H* D (70-110) mg/dL Hemoglobin A1c (4.2-6.5) % Lactic Acid (0.7-2.1) mmol/L Calcium 8.5 (8.4-10.5) mg/dL Phosphorus 1.9 L (2.5-4.5) mg/dL Magnesium 2.3 H (1.7-2.2) mg/dL Total Bilirubin (0.2-1.3) mg/dL AST (14-36) U/L ALT (7-56) U/L Alkaline Phosphatase (38-126) U/L Troponin I ng/mL Total Protein (5.8-8.3) g/dL Albumin (3.0-4.8) g/dL Globulin gm/dL Albumin/Globulin Ratio (1.1-1.8) Triglycerides (35-160) mg/dL Cholesterol (130-200) mg/dL LDL Cholesterol Direct (0-129) mg/dL HDL Cholesterol (29-60) mg/dL Free T4 (0.78-2.19) ng/dL Thyroxine (T4) (5.5-11.0) ug/dL TSH 3rd Generation (0.46-4.68) mIU/mL Venous Blood Potassium 3.2 L (3.6-5.2) mmol/L Blood Type Antibody Screen BBK History Checked 03/18/18 03/18/18 03/18/18 Range/Units 20:22 19:44 18:41 WBC (4.5-11.0) 10^3/ul RBC (3.5-6.1) 10^6/uL Hgb (12.0-16.0) g/dL Hct (36.0-48.0) % MCV (80.0-105.0) fl MCH (25.0-35.0) pg MCHC (31.0-37.0) g/dl RDW (11.5-14.5) % Plt Count (120.0-450.0) 10^3/uL MPV (7.0-11.0) fl Gran % (50.0-68.0) % Lymph % (Auto) (22.0-35.0) % [place] % (Auto) (1.0-6.0) % Eos % (Auto) (1.5-5.0) % Baso % (Auto) (0.0-3.0) % Gran # (1.4-6.5) Lymph # (Auto) (1.2-3.4) [place] # (Auto) (0.1-0.6) Eos # (Auto) (0.0-0.7) Baso # (Auto) (0.0-2.0) K/mm3 Neutrophils % (Manual) (50.0-70.0) % Band Neutrophils % (0-2) % Lymphocytes % (Manual) (22.0-35.0) % Monocytes % (Manual) (1.0-6.0) % Platelet Evaluation (NORMAL) Hypochromasia Anisocytosis (manual) pCO2 (35-45) mm/Hg pO2 (30-55) mm/Hg HCO3 (21-28) mmol/L ABG pH (7.35-7.45) ABG Total CO2 (22-28) mmol.L ABG O2 Saturation (95-98) % ABG O2 Content (15-23) ML/dl ABG Base Excess (-2.0-3.0) mmol/L ABG Hemoglobin (11.7-17.4) g/dL ABG Carboxyhemoglobin (0.5-1.5) % POC ABG HHb (Measured) (0-5) % ABG Methemoglobin (0.0-3.0) % ABG O2 Capacity (16-24) mL/dl VBG pH (7.32-7.43) VBG pCO2 (40-60) VBG HCO3 (21-28) mmol/l VBG Total CO2 (22-28) mmol.L VBG O2 Sat (Calc) (40-65) % VBG Base Excess (0.0-2.0) mmol/L VBG Potassium (3.6-5.2) mmol/L Hgb O2 Saturation (95.0-98.0) % Sodium (132-148) mmol/L Chloride (98-107) mmol/L Glucose (65-105) mg/dl Lactate (0.7-2.1) mmol/L FiO2 % Potassium (3.6-5.0) mmol/L Carbon Dioxide (21-33) mmol/L Anion Gap (10-20) BUN (7-21) mg/dL Creatinine (0.7-1.2) mg/dl Est GFR ( Amer) Est GFR (Non-Af Amer) POC Glucose (mg/dL) > 500 H* > 500 H* > 500 H* (65-110) mg/dL Random Glucose (70-110) mg/dL Hemoglobin A1c (4.2-6.5) % Lactic Acid (0.7-2.1) mmol/L Calcium (8.4-10.5) mg/dL Phosphorus (2.5-4.5) mg/dL Magnesium (1.7-2.2) mg/dL Total Bilirubin (0.2-1.3) mg/dL AST (14-36) U/L ALT (7-56) U/L Alkaline Phosphatase (38-126) U/L Troponin I ng/mL Total Protein (5.8-8.3) g/dL Albumin (3.0-4.8) g/dL Globulin gm/dL Albumin/Globulin Ratio (1.1-1.8) Triglycerides (35-160) mg/dL Cholesterol (130-200) mg/dL LDL Cholesterol Direct (0-129) mg/dL HDL Cholesterol (29-60) mg/dL Free T4 (0.78-2.19) ng/dL Thyroxine (T4) (5.5-11.0) ug/dL TSH 3rd Generation (0.46-4.68) mIU/mL Venous Blood Potassium (3.6-5.2) mmol/L Blood Type Antibody Screen BBK History Checked 03/18/18 03/18/18 03/18/18 Range/Units 17:31 16:17 16:15 WBC (4.5-11.0) 10^3/ul RBC (3.5-6.1) 10^6/uL Hgb (12.0-16.0) g/dL Hct (36.0-48.0) % MCV (80.0-105.0) fl MCH (25.0-35.0) pg MCHC (31.0-37.0) g/dl RDW (11.5-14.5) % Plt Count (120.0-450.0) 10^3/uL MPV (7.0-11.0) fl Gran % (50.0-68.0) % Lymph % (Auto) (22.0-35.0) % [place] % (Auto) (1.0-6.0) % Eos % (Auto) (1.5-5.0) % Baso % (Auto) (0.0-3.0) % Gran # (1.4-6.5) Lymph # (Auto) (1.2-3.4) [place] # (Auto) (0.1-0.6) Eos # (Auto) (0.0-0.7) Baso # (Auto) (0.0-2.0) K/mm3 Neutrophils % (Manual) (50.0-70.0) % Band Neutrophils % (0-2) % Lymphocytes % (Manual) (22.0-35.0) % Monocytes % (Manual) (1.0-6.0) % Platelet Evaluation (NORMAL) Hypochromasia Anisocytosis (manual) pCO2 (35-45) mm/Hg pO2 (30-55) mm/Hg HCO3 (21-28) mmol/L ABG pH (7.35-7.45) ABG Total CO2 (22-28) mmol.L ABG O2 Saturation (95-98) % ABG O2 Content (15-23) ML/dl ABG Base Excess (-2.0-3.0) mmol/L ABG Hemoglobin (11.7-17.4) g/dL ABG Carboxyhemoglobin (0.5-1.5) % POC ABG HHb (Measured) (0-5) % ABG Methemoglobin (0.0-3.0) % ABG O2 Capacity (16-24) mL/dl VBG pH (7.32-7.43) VBG pCO2 (40-60) VBG HCO3 (21-28) mmol/l VBG Total CO2 (22-28) mmol.L VBG O2 Sat (Calc) (40-65) % VBG Base Excess (0.0-2.0) mmol/L VBG Potassium (3.6-5.2) mmol/L Hgb O2 Saturation (95.0-98.0) % Sodium (132-148) mmol/L Chloride (98-107) mmol/L Glucose (65-105) mg/dl Lactate (0.7-2.1) mmol/L FiO2 % Potassium (3.6-5.0) mmol/L Carbon Dioxide (21-33) mmol/L Anion Gap (10-20) BUN (7-21) mg/dL Creatinine (0.7-1.2) mg/dl Est GFR ( Amer) Est GFR (Non-Af Amer) POC Glucose (mg/dL) > 500 H* > 500 H* > 500 H* (65-110) mg/dL Random Glucose (70-110) mg/dL Hemoglobin A1c (4.2-6.5) % Lactic Acid (0.7-2.1) mmol/L Calcium (8.4-10.5) mg/dL Phosphorus (2.5-4.5) mg/dL Magnesium (1.7-2.2) mg/dL Total Bilirubin (0.2-1.3) mg/dL AST (14-36) U/L ALT (7-56) U/L Alkaline Phosphatase (38-126) U/L Troponin I ng/mL Total Protein (5.8-8.3) g/dL Albumin (3.0-4.8) g/dL Globulin gm/dL Albumin/Globulin Ratio (1.1-1.8) Triglycerides (35-160) mg/dL Cholesterol (130-200) mg/dL LDL Cholesterol Direct (0-129) mg/dL HDL Cholesterol (29-60) mg/dL Free T4 (0.78-2.19) ng/dL Thyroxine (T4) (5.5-11.0) ug/dL TSH 3rd Generation (0.46-4.68) mIU/mL Venous Blood Potassium (3.6-5.2) mmol/L Blood Type Antibody Screen BBK History Checked 03/18/18 03/18/18 03/18/18 Range/Units 15:41 15:41 15:41 WBC 23.1 H D (4.5-11.0) 10^3/ul RBC 4.07 (3.5-6.1) 10^6/uL Hgb 11.6 L D (12.0-16.0) g/dL Hct 39.6 (36.0-48.0) % MCV 97.3 (80.0-105.0) fl MCH 28.5 (25.0-35.0) pg MCHC 29.3 L (31.0-37.0) g/dl RDW 14.9 H (11.5-14.5) % Plt Count 301 (120.0-450.0) 10^3/uL MPV 12.5 H (7.0-11.0) fl Gran % 95.7 H (50.0-68.0) % Lymph % (Auto) 1.3 L (22.0-35.0) % [place] % (Auto) 2.9 (1.0-6.0) % Eos % (Auto) 0.0 L (1.5-5.0) % Baso % (Auto) 0.1 (0.0-3.0) % Gran # 22.06 H (1.4-6.5) Lymph # (Auto) 0.3 L (1.2-3.4) [place] # (Auto) 0.7 H (0.1-0.6) Eos # (Auto) 0.0 (0.0-0.7) Baso # (Auto) 0.02 (0.0-2.0) K/mm3 Neutrophils % (Manual) 93 H (50.0-70.0) % Band Neutrophils % 4 H (0-2) % Lymphocytes % (Manual) 2 L (22.0-35.0) % Monocytes % (Manual) 1 (1.0-6.0) % Platelet Evaluation Normal (NORMAL) Hypochromasia Slight Anisocytosis (manual) Slight pCO2 (35-45) mm/Hg pO2 (30-55) mm/Hg HCO3 (21-28) mmol/L ABG pH (7.35-7.45) ABG Total CO2 (22-28) mmol.L ABG O2 Saturation (95-98) % ABG O2 Content (15-23) ML/dl ABG Base Excess (-2.0-3.0) mmol/L ABG Hemoglobin (11.7-17.4) g/dL ABG Carboxyhemoglobin (0.5-1.5) % POC ABG HHb (Measured) (0-5) % ABG Methemoglobin (0.0-3.0) % ABG O2 Capacity (16-24) mL/dl VBG pH (7.32-7.43) VBG pCO2 (40-60) VBG HCO3 (21-28) mmol/l VBG Total CO2 (22-28) mmol.L VBG O2 Sat (Calc) (40-65) % VBG Base Excess (0.0-2.0) mmol/L VBG Potassium (3.6-5.2) mmol/L Hgb O2 Saturation (95.0-98.0) % Sodium 145 (132-148) mmol/L Chloride 99 (98-107) mmol/L Glucose (65-105) mg/dl Lactate (0.7-2.1) mmol/L FiO2 % Potassium 4.2 (3.6-5.0) mmol/L Carbon Dioxide 25 (21-33) mmol/L Anion Gap 25 H (10-20) BUN 45 H (7-21) mg/dL Creatinine 1.1 (0.7-1.2) mg/dl Est GFR ( Amer) > 60 Est GFR (Non-Af Amer) 51 POC Glucose (mg/dL) (65-110) mg/dL Random Glucose 732 H* D (70-110) mg/dL Hemoglobin A1c (4.2-6.5) % Lactic Acid (0.7-2.1) mmol/L Calcium 8.2 L (8.4-10.5) mg/dL Phosphorus (2.5-4.5) mg/dL Magnesium 2.9 H (1.7-2.2) mg/dL Total Bilirubin 0.9 (0.2-1.3) mg/dL AST 4645 H (14-36) U/L ALT 2235 H (7-56) U/L Alkaline Phosphatase 126 D (38-126) U/L Troponin I 0.14 H* D ng/mL Total Protein 5.2 L (5.8-8.3) g/dL Albumin 2.8 L (3.0-4.8) g/dL Globulin 2.3 gm/dL Albumin/Globulin Ratio 1.2 (1.1-1.8) Triglycerides (35-160) mg/dL Cholesterol (130-200) mg/dL LDL Cholesterol Direct (0-129) mg/dL HDL Cholesterol (29-60) mg/dL Free T4 (0.78-2.19) ng/dL Thyroxine (T4) (5.5-11.0) ug/dL TSH 3rd Generation (0.46-4.68) mIU/mL Venous Blood Potassium (3.6-5.2) mmol/L Blood Type Antibody Screen BBK History Checked 03/18/18 03/18/18 Range/Units 15:41 15:39 WBC (4.5-11.0) 10^3/ul RBC (3.5-6.1) 10^6/uL Hgb (12.0-16.0) g/dL Hct (36.0-48.0) % MCV (80.0-105.0) fl MCH (25.0-35.0) pg MCHC (31.0-37.0) g/dl RDW (11.5-14.5) % Plt Count (120.0-450.0) 10^3/uL MPV (7.0-11.0) fl Gran % (50.0-68.0) % Lymph % (Auto) (22.0-35.0) % [place] % (Auto) (1.0-6.0) % Eos % (Auto) (1.5-5.0) % Baso % (Auto) (0.0-3.0) % Gran # (1.4-6.5) Lymph # (Auto) (1.2-3.4) [place] # (Auto) (0.1-0.6) Eos # (Auto) (0.0-0.7) Baso # (Auto) (0.0-2.0) K/mm3 Neutrophils % (Manual) (50.0-70.0) % Band Neutrophils % (0-2) % Lymphocytes % (Manual) (22.0-35.0) % Monocytes % (Manual) (1.0-6.0) % Platelet Evaluation (NORMAL) Hypochromasia Anisocytosis (manual) pCO2 (35-45) mm/Hg pO2 64 H (30-55) mm/Hg HCO3 (21-28) mmol/L ABG pH (7.35-7.45) ABG Total CO2 (22-28) mmol.L ABG O2 Saturation (95-98) % ABG O2 Content (15-23) ML/dl ABG Base Excess (-2.0-3.0) mmol/L ABG Hemoglobin (11.7-17.4) g/dL ABG Carboxyhemoglobin (0.5-1.5) % POC ABG HHb (Measured) (0-5) % ABG Methemoglobin (0.0-3.0) % ABG O2 Capacity (16-24) mL/dl VBG pH 7.29 L (7.32-7.43) VBG pCO2 53.0 (40-60) VBG HCO3 25.5 (21-28) mmol/l VBG Total CO2 27.1 (22-28) mmol.L VBG O2 Sat (Calc) 93.1 H (40-65) % VBG Base Excess -1.9 L (0.0-2.0) mmol/L VBG Potassium 4.1 (3.6-5.2) mmol/L Hgb O2 Saturation (95.0-98.0) % Sodium 143.0 (132-148) mmol/L Chloride 100.0 (98-107) mmol/L Glucose > 750 H* (65-105) mg/dl Lactate 3.3 H (0.7-2.1) mmol/L FiO2 21.0 % Potassium (3.6-5.0) mmol/L Carbon Dioxide (21-33) mmol/L Anion Gap (10-20) BUN (7-21) mg/dL Creatinine (0.7-1.2) mg/dl Est GFR ( Amer) Est GFR (Non-Af Amer) POC Glucose (mg/dL) (65-110) mg/dL Random Glucose (70-110) mg/dL Hemoglobin A1c (4.2-6.5) % Lactic Acid (0.7-2.1) mmol/L Calcium (8.4-10.5) mg/dL Phosphorus (2.5-4.5) mg/dL Magnesium (1.7-2.2) mg/dL Total Bilirubin (0.2-1.3) mg/dL AST (14-36) U/L ALT (7-56) U/L Alkaline Phosphatase (38-126) U/L Troponin I ng/mL Total Protein (5.8-8.3) g/dL Albumin (3.0-4.8) g/dL Globulin gm/dL Albumin/Globulin Ratio (1.1-1.8) Triglycerides (35-160) mg/dL Cholesterol (130-200) mg/dL LDL Cholesterol Direct (0-129) mg/dL HDL Cholesterol (29-60) mg/dL Free T4 (0.78-2.19) ng/dL Thyroxine (T4) (5.5-11.0) ug/dL TSH 3rd Generation (0.46-4.68) mIU/mL Venous Blood Potassium 4.1 (3.6-5.2) mmol/L Blood Type A NEGATIVE Antibody Screen Negative BBK History Checked Patient has bt Laboratory Results - last 24 hr 03/18/18 03/18/18 03/18/18 15:39 15:41 15:41 WBC 23.1 H D RBC 4.07 Hgb 11.6 L D Hct 39.6 MCV 97.3 MCH 28.5 MCHC 29.3 L RDW 14.9 H Plt Count 301 MPV 12.5 H Gran % 95.7 H Lymph % (Auto) 1.3 L [place] % (Auto) 2.9 Eos % (Auto) 0.0 L Baso % (Auto) 0.1 Gran # 22.06 H Lymph # (Auto) 0.3 L [place] # (Auto) 0.7 H Eos # (Auto) 0.0 Baso # (Auto) 0.02 Neutrophils % (Manual) 93 H Band Neutrophils % 4 H Lymphocytes % (Manual) 2 L Monocytes % (Manual) 1 Platelet Evaluation Normal Hypochromasia Slight Anisocytosis (manual) Slight pCO2 pO2 64 H HCO3 ABG pH ABG Total CO2 ABG O2 Saturation ABG O2 Content ABG Base Excess ABG Hemoglobin ABG Carboxyhemoglobin POC ABG HHb (Measured) ABG Methemoglobin ABG O2 Capacity VBG pH 7.29 L VBG pCO2 53.0 VBG HCO3 25.5 VBG Total CO2 27.1 VBG O2 Sat (Calc) 93.1 H VBG Base Excess -1.9 L VBG Potassium 4.1 Hgb O2 Saturation Sodium 143.0 Chloride 100.0 Glucose > 750 H* Lactate 3.3 H FiO2 21.0 Potassium Carbon Dioxide Anion Gap BUN Creatinine Est GFR ( Amer) Est GFR (Non-Af Amer) POC Glucose (mg/dL) Random Glucose Hemoglobin A1c Lactic Acid Calcium Phosphorus Magnesium Total Bilirubin AST ALT Alkaline Phosphatase Troponin I Total Protein Albumin Globulin Albumin/Globulin Ratio Triglycerides Cholesterol LDL Cholesterol Direct HDL Cholesterol Free T4 Thyroxine (T4) TSH 3rd Generation Venous Blood Potassium 4.1 Blood Type A NEGATIVE Antibody Screen Negative BBK History Checked Patient has bt 03/18/18 03/18/18 03/18/18 15:41 15:41 16:15 WBC RBC Hgb Hct MCV MCH MCHC RDW Plt Count MPV Gran % Lymph % (Auto) [place] % (Auto) Eos % (Auto) Baso % (Auto) Gran # Lymph # (Auto) [place] # (Auto) Eos # (Auto) Baso # (Auto) Neutrophils % (Manual) Band Neutrophils % Lymphocytes % (Manual) Monocytes % (Manual) Platelet Evaluation Hypochromasia Anisocytosis (manual) pCO2 pO2 HCO3 ABG pH ABG Total CO2 ABG O2 Saturation ABG O2 Content ABG Base Excess ABG Hemoglobin ABG Carboxyhemoglobin POC ABG HHb (Measured) ABG Methemoglobin ABG O2 Capacity VBG pH VBG pCO2 VBG HCO3 VBG Total CO2 VBG O2 Sat (Calc) VBG Base Excess VBG Potassium Hgb O2 Saturation Sodium 145 Chloride 99 Glucose Lactate FiO2 Potassium 4.2 Carbon Dioxide 25 Anion Gap 25 H BUN 45 H Creatinine 1.1 Est GFR ( Amer) > 60 Est GFR (Non-Af Amer) 51 POC Glucose (mg/dL) > 500 H* Random Glucose 732 H* D Hemoglobin A1c Lactic Acid Calcium 8.2 L Phosphorus Magnesium 2.9 H Total Bilirubin 0.9 AST 4645 H ALT 2235 H Alkaline Phosphatase 126 D Troponin I 0.14 H* D Total Protein 5.2 L Albumin 2.8 L Globulin 2.3 Albumin/Globulin Ratio 1.2 Triglycerides Cholesterol LDL Cholesterol Direct HDL Cholesterol Free T4 Thyroxine (T4) TSH 3rd Generation Venous Blood Potassium Blood Type Antibody Screen BBK History Checked 03/18/18 03/18/18 03/18/18 16:17 17:31 18:41 WBC RBC Hgb Hct MCV MCH MCHC RDW Plt Count MPV Gran % Lymph % (Auto) [place] % (Auto) Eos % (Auto) Baso % (Auto) Gran # Lymph # (Auto) [place] # (Auto) Eos # (Auto) Baso # (Auto) Neutrophils % (Manual) Band Neutrophils % Lymphocytes % (Manual) Monocytes % (Manual) Platelet Evaluation Hypochromasia Anisocytosis (manual) pCO2 pO2 HCO3 ABG pH ABG Total CO2 ABG O2 Saturation ABG O2 Content ABG Base Excess ABG Hemoglobin ABG Carboxyhemoglobin POC ABG HHb (Measured) ABG Methemoglobin ABG O2 Capacity VBG pH VBG pCO2 VBG HCO3 VBG Total CO2 VBG O2 Sat (Calc) VBG Base Excess VBG Potassium Hgb O2 Saturation Sodium Chloride Glucose Lactate FiO2 Potassium Carbon Dioxide Anion Gap BUN Creatinine Est GFR ( Amer) Est GFR (Non-Af Amer) POC Glucose (mg/dL) > 500 H* > 500 H* > 500 H* Random Glucose Hemoglobin A1c Lactic Acid Calcium Phosphorus Magnesium Total Bilirubin AST ALT Alkaline Phosphatase Troponin I Total Protein Albumin Globulin Albumin/Globulin Ratio Triglycerides Cholesterol LDL Cholesterol Direct HDL Cholesterol Free T4 Thyroxine (T4) TSH 3rd Generation Venous Blood Potassium Blood Type Antibody Screen BBK History Checked 03/18/18 03/18/18 03/18/18 19:44 20:22 21:43 WBC RBC Hgb Hct MCV MCH MCHC RDW Plt Count MPV Gran % Lymph % (Auto) [place] % (Auto) Eos % (Auto) Baso % (Auto) Gran # Lymph # (Auto) [place] # (Auto) Eos # (Auto) Baso # (Auto) Neutrophils % (Manual) Band Neutrophils % Lymphocytes % (Manual) Monocytes % (Manual) Platelet Evaluation Hypochromasia Anisocytosis (manual) pCO2 pO2 HCO3 ABG pH ABG Total CO2 ABG O2 Saturation ABG O2 Content ABG Base Excess ABG Hemoglobin ABG Carboxyhemoglobin POC ABG HHb (Measured) ABG Methemoglobin ABG O2 Capacity VBG pH VBG pCO2 VBG HCO3 VBG Total CO2 VBG O2 Sat (Calc) VBG Base Excess VBG Potassium Hgb O2 Saturation Sodium Chloride Glucose Lactate FiO2 Potassium Carbon Dioxide Anion Gap BUN Creatinine Est GFR ( Amer) Est GFR (Non-Af Amer) POC Glucose (mg/dL) > 500 H* > 500 H* 465 H* Random Glucose Hemoglobin A1c Lactic Acid Calcium Phosphorus Magnesium Total Bilirubin AST ALT Alkaline Phosphatase Troponin I Total Protein Albumin Globulin Albumin/Globulin Ratio Triglycerides Cholesterol LDL Cholesterol Direct HDL Cholesterol Free T4 Thyroxine (T4) TSH 3rd Generation Venous Blood Potassium Blood Type Antibody Screen BBK History Checked 03/18/18 03/18/18 03/18/18 22:00 22:08 22:46 WBC RBC Hgb Hct MCV MCH MCHC RDW Plt Count MPV Gran % Lymph % (Auto) [place] % (Auto) Eos % (Auto) Baso % (Auto) Gran # Lymph # (Auto) [place] # (Auto) Eos # (Auto) Baso # (Auto) Neutrophils % (Manual) Band Neutrophils % Lymphocytes % (Manual) Monocytes % (Manual) Platelet Evaluation Hypochromasia Anisocytosis (manual) pCO2 pO2 167 H HCO3 ABG pH ABG Total CO2 ABG O2 Saturation ABG O2 Content ABG Base Excess ABG Hemoglobin ABG Carboxyhemoglobin POC ABG HHb (Measured) ABG Methemoglobin ABG O2 Capacity VBG pH 7.31 L VBG pCO2 47.0 VBG HCO3 23.7 VBG Total CO2 25.1 VBG O2 Sat (Calc) 98.7 H VBG Base Excess -2.9 L VBG Potassium 3.2 L Hgb O2 Saturation Sodium 147.0 149 H Chloride 108.0 H 107 Glucose 383 H Lactate 7.3 H* FiO2 21.0 Potassium 3.3 L Carbon Dioxide 25 Anion Gap 20 BUN 41 H Creatinine 1.0 Est GFR ( Amer) > 60 Est GFR (Non-Af Amer) 57 POC Glucose (mg/dL) 460 H* Random Glucose 366 H* D Hemoglobin A1c Lactic Acid Calcium 8.5 Phosphorus 1.9 L Magnesium 2.3 H Total Bilirubin AST ALT Alkaline Phosphatase Troponin I Total Protein Albumin Globulin Albumin/Globulin Ratio Triglycerides Cholesterol LDL Cholesterol Direct HDL Cholesterol Free T4 Thyroxine (T4) TSH 3rd Generation Venous Blood Potassium 3.2 L Blood Type Antibody Screen BBK History Checked 03/18/18 03/19/18 03/19/18 23:29 00:22 01:22 WBC RBC Hgb Hct MCV MCH MCHC RDW Plt Count MPV Gran % Lymph % (Auto) [place] % (Auto) Eos % (Auto) Baso % (Auto) Gran # Lymph # (Auto) [place] # (Auto) Eos # (Auto) Baso # (Auto) Neutrophils % (Manual) Band Neutrophils % Lymphocytes % (Manual) Monocytes % (Manual) Platelet Evaluation Hypochromasia Anisocytosis (manual) pCO2 pO2 HCO3 ABG pH ABG Total CO2 ABG O2 Saturation ABG O2 Content ABG Base Excess ABG Hemoglobin ABG Carboxyhemoglobin POC ABG HHb (Measured) ABG Methemoglobin ABG O2 Capacity VBG pH VBG pCO2 VBG HCO3 VBG Total CO2 VBG O2 Sat (Calc) VBG Base Excess VBG Potassium Hgb O2 Saturation Sodium Chloride Glucose Lactate FiO2 Potassium Carbon Dioxide Anion Gap BUN Creatinine Est GFR ( Amer) Est GFR (Non-Af Amer) POC Glucose (mg/dL) 464 H* 374 H 216 H Random Glucose Hemoglobin A1c Lactic Acid Calcium Phosphorus Magnesium Total Bilirubin AST ALT Alkaline Phosphatase Troponin I Total Protein Albumin Globulin Albumin/Globulin Ratio Triglycerides Cholesterol LDL Cholesterol Direct HDL Cholesterol Free T4 Thyroxine (T4) TSH 3rd Generation Venous Blood Potassium Blood Type Antibody Screen BBK History Checked 03/19/18 03/19/18 03/19/18 01:25 01:25 02:24 WBC RBC Hgb Hct MCV MCH MCHC RDW Plt Count MPV Gran % Lymph % (Auto) [place] % (Auto) Eos % (Auto) Baso % (Auto) Gran # Lymph # (Auto) [place] # (Auto) Eos # (Auto) Baso # (Auto) Neutrophils % (Manual) Band Neutrophils % Lymphocytes % (Manual) Monocytes % (Manual) Platelet Evaluation Hypochromasia Anisocytosis (manual) pCO2 pO2 HCO3 ABG pH ABG Total CO2 ABG O2 Saturation ABG O2 Content ABG Base Excess ABG Hemoglobin ABG Carboxyhemoglobin POC ABG HHb (Measured) ABG Methemoglobin ABG O2 Capacity VBG pH VBG pCO2 VBG HCO3 VBG Total CO2 VBG O2 Sat (Calc) VBG Base Excess VBG Potassium Hgb O2 Saturation Sodium 149 H Chloride 107 Glucose Lactate FiO2 Potassium 3.1 L Carbon Dioxide 27 Anion Gap 17 BUN 39 H Creatinine 0.8 Est GFR ( Amer) > 60 Est GFR (Non-Af Amer) > 60 POC Glucose (mg/dL) 242 H Random Glucose 225 H Hemoglobin A1c Lactic Acid 5.7 H* Calcium 8.2 L Phosphorus Magnesium Total Bilirubin AST ALT Alkaline Phosphatase Troponin I 0.33 H* D Total Protein Albumin Globulin Albumin/Globulin Ratio Triglycerides Cholesterol LDL Cholesterol Direct HDL Cholesterol Free T4 Thyroxine (T4) TSH 3rd Generation Venous Blood Potassium Blood Type Antibody Screen BBK History Checked 03/19/18 03/19/18 03/19/18 03:56 04:42 05:18 WBC RBC Hgb Hct MCV MCH MCHC RDW Plt Count MPV Gran % Lymph % (Auto) [place] % (Auto) Eos % (Auto) Baso % (Auto) Gran # Lymph # (Auto) [place] # (Auto) Eos # (Auto) Baso # (Auto) Neutrophils % (Manual) Band Neutrophils % Lymphocytes % (Manual) Monocytes % (Manual) Platelet Evaluation Hypochromasia Anisocytosis (manual) pCO2 46 H pO2 113.0 H HCO3 27.8 ABG pH 7.39 ABG Total CO2 29.2 H ABG O2 Saturation 97.6 ABG O2 Content 16.0 ABG Base Excess 2.3 ABG Hemoglobin 11.6 L ABG Carboxyhemoglobin 0.1 L POC ABG HHb (Measured) 2.4 ABG Methemoglobin 0.7 ABG O2 Capacity 16.4 VBG pH VBG pCO2 VBG HCO3 VBG Total CO2 VBG O2 Sat (Calc) VBG Base Excess VBG Potassium Hgb O2 Saturation 96.8 Sodium Chloride Glucose Lactate FiO2 80.0 Potassium Carbon Dioxide Anion Gap BUN Creatinine Est GFR ( Amer) Est GFR (Non-Af Amer) POC Glucose (mg/dL) 208 H 153 H Random Glucose Hemoglobin A1c Lactic Acid Calcium Phosphorus Magnesium Total Bilirubin AST ALT Alkaline Phosphatase Troponin I Total Protein Albumin Globulin Albumin/Globulin Ratio Triglycerides Cholesterol LDL Cholesterol Direct HDL Cholesterol Free T4 Thyroxine (T4) TSH 3rd Generation Venous Blood Potassium Blood Type Antibody Screen BBK History Checked 03/19/18 03/19/18 03/19/18 05:39 05:45 05:45 WBC 19.9 H RBC 4.12 Hgb 11.9 L Hct 37.4 MCV 90.8 D MCH 28.9 MCHC 31.8 RDW 14.6 H Plt Count 285 MPV 12.3 H Gran % Lymph % (Auto) [place] % (Auto) Eos % (Auto) Baso % (Auto) Gran # Lymph # (Auto) [place] # (Auto) Eos # (Auto) Baso # (Auto) Neutrophils % (Manual) Band Neutrophils % Lymphocytes % (Manual) Monocytes % (Manual) Platelet Evaluation Hypochromasia Anisocytosis (manual) pCO2 pO2 HCO3 ABG pH ABG Total CO2 ABG O2 Saturation ABG O2 Content ABG Base Excess ABG Hemoglobin ABG Carboxyhemoglobin POC ABG HHb (Measured) ABG Methemoglobin ABG O2 Capacity VBG pH VBG pCO2 VBG HCO3 VBG Total CO2 VBG O2 Sat (Calc) VBG Base Excess VBG Potassium Hgb O2 Saturation Sodium 146 Chloride 107 Glucose Lactate FiO2 Potassium 4.0 Carbon Dioxide 30 Anion Gap 13 BUN 36 H Creatinine 0.8 Est GFR ( Amer) > 60 Est GFR (Non-Af Amer) > 60 POC Glucose (mg/dL) 77 Random Glucose 88 Hemoglobin A1c Lactic Acid Calcium 8.1 L Phosphorus 2.3 L Magnesium 2.2 Total Bilirubin 0.3 AST 4918 H ALT 1827 H Alkaline Phosphatase 99 Troponin I 0.30 H* Total Protein 5.4 L Albumin 2.7 L Globulin 2.7 Albumin/Globulin Ratio 1.0 L Triglycerides 192 H Cholesterol 97 L LDL Cholesterol Direct < 30 HDL Cholesterol 38 Free T4 Thyroxine (T4) TSH 3rd Generation Venous Blood Potassium Blood Type Antibody Screen BBK History Checked 03/19/18 03/19/18 03/19/18 05:45 05:45 05:45 WBC RBC Hgb Hct MCV MCH MCHC RDW Plt Count MPV Gran % Lymph % (Auto) [place] % (Auto) Eos % (Auto) Baso % (Auto) Gran # Lymph # (Auto) [place] # (Auto) Eos # (Auto) Baso # (Auto) Neutrophils % (Manual) Band Neutrophils % Lymphocytes % (Manual) Monocytes % (Manual) Platelet Evaluation Hypochromasia Anisocytosis (manual) pCO2 pO2 142 H HCO3 ABG pH ABG Total CO2 ABG O2 Saturation ABG O2 Content ABG Base Excess ABG Hemoglobin ABG Carboxyhemoglobin POC ABG HHb (Measured) ABG Methemoglobin ABG O2 Capacity VBG pH 7.43 VBG pCO2 42.0 VBG HCO3 27.9 VBG Total CO2 29.2 H VBG O2 Sat (Calc) 98.1 H VBG Base Excess 3.2 H VBG Potassium 3.9 Hgb O2 Saturation Sodium 143.0 Chloride 110.0 H Glucose 82 Lactate 4.5 H* FiO2 21.0 Potassium Carbon Dioxide Anion Gap BUN Creatinine Est GFR ( Amer) Est GFR (Non-Af Amer) POC Glucose (mg/dL) Random Glucose Hemoglobin A1c Lactic Acid 4.2 H* Calcium Phosphorus Magnesium Total Bilirubin AST ALT Alkaline Phosphatase Troponin I Total Protein Albumin Globulin Albumin/Globulin Ratio Triglycerides Cholesterol LDL Cholesterol Direct HDL Cholesterol Free T4 1.82 Thyroxine (T4) 7.7 TSH 3rd Generation 1.29 Venous Blood Potassium 3.9 Blood Type Antibody Screen BBK History Checked 03/19/18 03/19/18 03/19/18 05:46 07:44 08:49 WBC RBC Hgb Hct MCV MCH MCHC RDW Plt Count MPV Gran % Lymph % (Auto) [place] % (Auto) Eos % (Auto) Baso % (Auto) Gran # Lymph # (Auto) [place] # (Auto) Eos # (Auto) Baso # (Auto) Neutrophils % (Manual) Band Neutrophils % Lymphocytes % (Manual) Monocytes % (Manual) Platelet Evaluation Hypochromasia Anisocytosis (manual) pCO2 pO2 HCO3 ABG pH ABG Total CO2 ABG O2 Saturation ABG O2 Content ABG Base Excess ABG Hemoglobin ABG Carboxyhemoglobin POC ABG HHb (Measured) ABG Methemoglobin ABG O2 Capacity VBG pH VBG pCO2 VBG HCO3 VBG Total CO2 VBG O2 Sat (Calc) VBG Base Excess VBG Potassium Hgb O2 Saturation Sodium Chloride Glucose Lactate FiO2 Potassium Carbon Dioxide Anion Gap BUN Creatinine Est GFR ( Amer) Est GFR (Non-Af Amer) POC Glucose (mg/dL) 87 112 H Random Glucose Hemoglobin A1c 9.7 H D Lactic Acid Calcium Phosphorus Magnesium Total Bilirubin AST ALT Alkaline Phosphatase Troponin I Total Protein Albumin Globulin Albumin/Globulin Ratio Triglycerides Cholesterol LDL Cholesterol Direct HDL Cholesterol Free T4 Thyroxine (T4) TSH 3rd Generation Venous Blood Potassium Blood Type Antibody Screen BBK History Checked 03/19/18 03/19/18 03/19/18 09:44 10:40 11:41 WBC RBC Hgb Hct MCV MCH MCHC RDW Plt Count MPV Gran % Lymph % (Auto) [place] % (Auto) Eos % (Auto) Baso % (Auto) Gran # Lymph # (Auto) [place] # (Auto) Eos # (Auto) Baso # (Auto) Neutrophils % (Manual) Band Neutrophils % Lymphocytes % (Manual) Monocytes % (Manual) Platelet Evaluation Hypochromasia Anisocytosis (manual) pCO2 pO2 HCO3 ABG pH ABG Total CO2 ABG O2 Saturation ABG O2 Content ABG Base Excess ABG Hemoglobin ABG Carboxyhemoglobin POC ABG HHb (Measured) ABG Methemoglobin ABG O2 Capacity VBG pH VBG pCO2 VBG HCO3 VBG Total CO2 VBG O2 Sat (Calc) VBG Base Excess VBG Potassium Hgb O2 Saturation Sodium Chloride Glucose Lactate FiO2 Potassium Carbon Dioxide Anion Gap BUN Creatinine Est GFR ( Amer) Est GFR (Non-Af Amer) POC Glucose (mg/dL) 80 101 403 H* Random Glucose Hemoglobin A1c Lactic Acid Calcium Phosphorus Magnesium Total Bilirubin AST ALT Alkaline Phosphatase Troponin I Total Protein Albumin Globulin Albumin/Globulin Ratio Triglycerides Cholesterol LDL Cholesterol Direct HDL Cholesterol Free T4 Thyroxine (T4) TSH 3rd Generation Venous Blood Potassium Blood Type Antibody Screen BBK History Checked 03/19/18 03/19/18 03/19/18 11:43 11:48 11:48 WBC RBC Hgb Hct MCV MCH MCHC RDW Plt Count MPV Gran % Lymph % (Auto) [place] % (Auto) Eos % (Auto) Baso % (Auto) Gran # Lymph # (Auto) [place] # (Auto) Eos # (Auto) Baso # (Auto) Neutrophils % (Manual) Band Neutrophils % Lymphocytes % (Manual) Monocytes % (Manual) Platelet Evaluation Hypochromasia Anisocytosis (manual) pCO2 pO2 48 HCO3 ABG pH ABG Total CO2 ABG O2 Saturation ABG O2 Content ABG Base Excess ABG Hemoglobin ABG Carboxyhemoglobin POC ABG HHb (Measured) ABG Methemoglobin ABG O2 Capacity VBG pH 7.28 L VBG pCO2 66.0 H* VBG HCO3 31.0 H VBG Total CO2 33.0 H VBG O2 Sat (Calc) 82.8 H VBG Base Excess 2.4 H VBG Potassium 3.6 Hgb O2 Saturation Sodium 144 141.0 Chloride 101 102.0 Glucose 103 Lactate 3.8 H FiO2 21.0 Potassium 3.8 Carbon Dioxide 33 Anion Gap 13 BUN 33 H Creatinine 0.7 Est GFR ( Amer) > 60 Est GFR (Non-Af Amer) > 60 POC Glucose (mg/dL) 95 Random Glucose 111 H Hemoglobin A1c Lactic Acid Calcium 8.3 L Phosphorus Magnesium Total Bilirubin AST ALT Alkaline Phosphatase Troponin I Total Protein Albumin Globulin Albumin/Globulin Ratio Triglycerides Cholesterol LDL Cholesterol Direct HDL Cholesterol Free T4 Thyroxine (T4) TSH 3rd Generation Venous Blood Potassium 3.6 Blood Type Antibody Screen BBK History Checked 03/19/18 03/19/18 12:36 13:27 WBC RBC Hgb Hct MCV MCH MCHC RDW Plt Count MPV Gran % Lymph % (Auto) [place] % (Auto) Eos % (Auto) Baso % (Auto) Gran # Lymph # (Auto) [place] # (Auto) Eos # (Auto) Baso # (Auto) Neutrophils % (Manual) Band Neutrophils % Lymphocytes % (Manual) Monocytes % (Manual) Platelet Evaluation Hypochromasia Anisocytosis (manual) pCO2 pO2 HCO3 ABG pH ABG Total CO2 ABG O2 Saturation ABG O2 Content ABG Base Excess ABG Hemoglobin ABG Carboxyhemoglobin POC ABG HHb (Measured) ABG Methemoglobin ABG O2 Capacity VBG pH VBG pCO2 VBG HCO3 VBG Total CO2 VBG O2 Sat (Calc) VBG Base Excess VBG Potassium Hgb O2 Saturation Sodium Chloride Glucose Lactate FiO2 Potassium Carbon Dioxide Anion Gap BUN Creatinine Est GFR ( Amer) Est GFR (Non-Af Amer) POC Glucose (mg/dL) 92 97 Random Glucose Hemoglobin A1c Lactic Acid Calcium Phosphorus Magnesium Total Bilirubin AST ALT Alkaline Phosphatase Troponin I Total Protein Albumin Globulin Albumin/Globulin Ratio Triglycerides Cholesterol LDL Cholesterol Direct HDL Cholesterol Free T4 Thyroxine (T4) TSH 3rd Generation Venous Blood Potassium Blood Type Antibody Screen BBK History Checked Additional Comments - Additional Comments Additional Comments: ICU Attending Addendum: Patient seen and examined. Case reviewed on round with housestaff. Agree with resident note above with the following additions/exceptions: 58F hx of severe COPD, DM, multiple sclerosis, myotonic dystrophy, hypothyroidism, and renal cancer presenting to the ED via EMS for respiratory distress intubated in the field subsequently went into cardiac arrest during CT scan (VT) now intubated, on pressors undergoing hypothermic protocol. Etiology of her arrest is unclear. Given her chronic severe lung disease, resp arrest and prolonged hypoxemia could be the cause. Primary VT is also possible. PE less likely, no DVT on doppler and echo not suggestive (RVSP 34%)/ At this point, resume post-cardiac resuscitation care with targetting temp protocol. She reached target temp at 6pm last night, cont for 24 hours then begin re-warm phase. Monitor lytes etc during this process. Cont amio to tx and ppx VT. Neurologically she is unresponsive, not requiring sedation. Cannot neuro- prognositicate until at least 72 hours. Abx as per ID , also is on steroids solumedrol 40 q8h LFts elevated likely from shock, supportive care for now Insulin drip for elev blood gluc, can switch to SQ GI ppx protnix DVT ppx - hep Sq NPO Rest of care as noted above. Maurice Cook MD Head Up Operator Helper Critical care time : 55mins
--- NOTE | 2018-03-19 15:14 | PN ---
Copied To: Shauna De La Rosa MD Attending MD: Shauna De La Rosa MD DATE: 03/19/2018 ENDOCRINOLOGY FOLLOWUP NOTE LOCATION: In [facility], room 5. SUBJECTIVE: This is a 58-year-old female with recent acute respiratory failure, currently endotracheally intubated and is now being followed closely for metabolic management. She also has significant history of COPD with recent bilateral pneumonia and has been started now on IV steroid therapy with Solu-Medrol given as 40 mg IV every 8 hours with supervening hyperglycemic accelerations as expected thereof. Her glucose levels have ranged from 95 to 403 mg/dL. Her latest chemistry showed a BUN of 33, sodium 144, potassium 3.8, chloride 101, CO2 of 33, glucose 111 and creatinine 3.7. Her thyroxine level is 7.7 with a TSH of 1.29. ASSESSMENT: This is a 58-year-old female with recent uncontrolled type 2 insulin-requiring diabetes, presenting here with acute respiratory failure and subsequent endotracheal intubation with prior history of tracheostomy and PEG tube placement with underlying chronic obstructive pulmonary disease and also myotonic dystrophy as noted thereof. PLAN OF MANAGEMENT: We will continue the basal insulin given as Levemir at 20 units subcu every 12 hours at 8 a.m. and 8 p.m. daily as given. We will also intensify the insulin coverage scale with glucose monitoring every 4 hours with regular insulin as given. We will observe her glycemic fluctuations overnight and titrate her basal insulin accordingly to optimize metabolic control. As the IV steroids are tapered down, then we will adjust her basal insulin accordingly as indicated. We will obtain serial chemistries and supplement accordingly as needed. We will determine the need to restart her levothyroxine medications as indicated. We will follow. Shauna De La Rosa MD
[2018-03-20] MEDS: Levalbuterol 1.25 MG/3 ML Inhal Soln UD IH SCH ×4 (01:40→20:30)
[2018-03-20 01:47] LABS: BLOOD UREA NITROGEN 26 mg/dL (7-21); CALCIUM 7.9 mg/dL (8.4-10.5); GFR AFRICAN-AMERICAN > 60; GFR NON-AFRICAN AMERICAN > 60
[2018-03-20] MEDS: Aztreonam 1 Gm in NS 100mL 100 ML IVPB SCH ×3 (05:21→21:50)
[2018-03-20] MEDS: MethylPREDNISolone 40 mg Vial IVP SCH ×3 (05:22→22:30)
[2018-03-20] MEDS: NOREPINEPHRINE BIT/0.9 % NACL 4 MG/250 ML BAG IV PRN ×2 (05:25→16:29)
[2018-03-20 06:32] LABS: ARTERIAL BLOOD GAS HCO3 27.6 mmol/L (21-28); ARTERIAL BLOOD GAS HEMOGLOBIN 11.7 g/dL (11.7-17.4); ARTERIAL BLOOD GAS O2 CAPACITY 16.9 mL/dl (16-24); ARTERIAL BLOOD GAS O2 CONTENT 16.5 ML/dl (15-23); ARTERIAL BLOOD GAS O2 SAT 97.9 % (95-98); ARTERIAL BLOOD GAS PCO2 37 mm/Hg (35-45); ARTERIAL BLOOD GAS PH 7.48 (7.35-7.45); ARTERIAL BLOOD GAS TCO2 28.7 mmol.L (22-28)
[2018-03-20 06:40] LABS: HEMOGLOBIN 11.6 g/dL (12.0-16.0); MEAN CORPUSCULAR HEMOGLOBIN 29.1 pg (25.0-35.0); MEAN PLATELET VOLUME 12.5 fl (7.0-11.0); RBC 3.99 10^6/uL (3.5-6.1); RED CELL DISTRIBUTION WIDTH 14.4 % (11.5-14.5); WHITE BLOOD COUNT 20.4 10^3/ul (4.5-11.0)
[2018-03-20 07:14] LABS: ALBUMIN 2.5 g/dL (3.0-4.8); ALT/SGPT 1182 U/L (7-56); AST/SGOT 1635 U/L (14-36); BLOOD UREA NITROGEN 24 mg/dL (7-21); CALCIUM 7.6 mg/dL (8.4-10.5); GFR AFRICAN-AMERICAN > 60; GFR NON-AFRICAN AMERICAN > 60
[2018-03-20] MEDS: Amiodarone 360 mg/D5W 200 ml 360 MG/200 ML BAG IV SCH ×2 (07:33→21:41)
[2018-03-20] MEDS ORDERED: Insulin Detemir 100 units/ml Vial (Levemir) SC SCH (08:00)
--- NOTE | 2018-03-20 08:39 | CP.PCM.PN ---
Subjective - Date & Time of Evaluation Date of Evaluation: 03/20/18 Time of Evaluation: 08:30 - Subjective Subjective: Endocrinology progress note: Patient seen and examined at bedside. Patient is currently still intubated and on two pressors. 12 Point ROS limited 2/2 intubation. Objective - Vital Signs/Intake and Output Vital Signs (last 24 hours): Temp Pulse Resp BP Pulse Ox 93 F L 66 18 105/50 L 90 L 03/20/18 04:00 03/20/18 06:00 03/19/18 10:00 03/20/18 05:27 03/20/18 01:00 Intake and Output: 03/20/18 03/20/18 06:59 18:59 Intake Total 2050 Output Total 600 Balance 1450 - Medications Medications: Current Medications Dextrose (Dextrose 50% Inj) 0 ml IV STAT PRN; Protocol PRN Reason: Hypoglycemia Protocol Heparin Sodium (Porcine) (Heparin) 5,000 units SC Q8 GABE PRN Reason: Protocol Last Admin: 03/20/18 05:21 Dose: 5,000 units Dextrose (Dextrose 5% In Water 1000 Ml) 1,000 mls @ 0 mls/hr IV .Q0M PRN; Protocol; Per Protocol PRN Reason: Hypoglycemia Protocol NOREPINEPHRINE BIT/0.9 % NACL (Levophed 4 Mg/ 250 Ml Ns Premixed) 4 mg in 250 mls @ 15 mls/hr IV .M43B32M PRN; Protocol; 4 MCG/MIN PRN Reason: TITRATE PER MD ORDER Last Admin: 03/20/18 05:25 Dose: 6.5 mcg/min, 24.375 mls/hr Propofol (Diprivan) 1,000 mg in 100 mls @ 1.817 mls/hr IV .Q24H PRN; Protocol; 5 MCG/KG/MIN PRN Reason: TITRATE PER MD ORDER Last Titration: 03/19/18 09:25 Dose: 0 mcg/kg/min, 0 mls/hr Aztreonam (Azactam 1 Gm) 100 mls @ 100 mls/hr IVPB Q8 GABE PRN Reason: Protocol Stop: 03/23/18 14:31 Last Admin: 03/20/18 05:21 Dose: 100 mls/hr Amiodarone HCl/Dextrose (Nexterone 360 Mg In D5w 200 Ml (Premix)) 360 mg in 200 mls @ 16.667 mls/hr IV .Q12H GABE; 0.5 MG/MIN PRN Reason: Protocol Last Admin: 03/20/18 07:33 Dose: 16.667 mls/hr Linezolid (Zyvox 600mg/300ml D5w) 600 mg in 300 mls @ 200 mls/hr IVPB Q12 GABE PRN Reason: Protocol Stop: 03/25/18 22:01 Last Admin: 03/19/18 21:51 Dose: 200 mls/hr Dextrose/Sodium Chloride (Dextrose 5%/0.45% Ns 1000 Ml) 1,000 mls @ 100 mls/hr IV .Q10H GABE Last Admin: 03/19/18 19:30 Dose: 100 mls/hr Phenylephrine HCl 40 mg/ (Sodium Chloride) 254 mls @ 38.1 mls/hr IV .Q6H40M PRN ; Protocol; 100 MCG/MIN PRN Reason: TITRATE PER MD ORDER Vasopressin 20 units/ Sodium (Chloride) 101 mls @ 9.09 mls/hr IV .Q11H7M GABE; 0.03 U/MIN PRN Reason: Protocol Last Admin: 03/20/18 05:27 Dose: 9.09 mls/hr Doxycycline Hyclate 100 mg/ (Sodium Chloride) 100 mls @ 100 mls/hr IVPB Q12 GABE PRN Reason: Protocol Last Admin: 03/19/18 21:50 Dose: 100 mls/hr Potassium Chloride (Potassium Chloride 10 Meq/100 Ml) 10 meq in 100 mls @ 50 mls/hr IVPB Q2H GABE Stop: 03/20/18 12:44 Insulin Detemir (Levemir) 10 unit SC Q12 GABE Levalbuterol HCl (Xopenex) 1.25 mg IH F2ECMEH [facility] Last Admin: 03/20/18 07:24 Dose: 1.25 mg Methylprednisolone (Solu-Medrol) 40 mg IVP Q12 GABE Pantoprazole Sodium (Protonix Inj) 40 mg IVP DAILY [facility] Last Admin: 03/19/18 09:44 Dose: 40 mg - Labs Labs: 03/20/18 06:00 03/20/18 06:00 PT 13.1 SECONDS (9.4-12.5) H 03/18/18 10:15 INR 1.14 03/18/18 10:15 APTT 23.7 Seconds (25.1-36.5) L 03/18/18 10:15 - Constitutional Appears: No Acute Distress - ENT Exam ENT Exam: Mucous Membranes Moist - Respiratory Exam Respiratory Exam: Rhonchi, NORMAL BREATHING PATTERN - Cardiovascular Exam Cardiovascular Exam: RRR, +S1, +S2 - GI/Abdominal Exam GI & Abdominal Exam: Soft. absent: Tenderness - Extremities Exam Extremities Exam: Pedal Edema. absent: Calf Tenderness - Skin Skin Exam: Normal Color, Warm Assessment and Plan - Assessment and Plan (Free Text) Assessment: 58-year-old female with uncontrolled and decompensated type II insulin requiring diabetes, myotonic dystrophy, COPD, and multiple sclerosis initially presented with shortness of breath and was intubated on the field, s/p cardiopulmonary arrest in the ED, currently on pressor support. Patient also presenting with marked hyperglycemic accelerations. Decreased to Levemir 10 units BID scheduled We will taper her basal dose as the steroids are decreased Replete electrolytes as needed Fingersticks Q4H and serial CMPs Continue medical care in the ICU Antibiotics as per ID Case and plan discussed in detail with Dr De La Rosa. Trenton Nguyễn, PGY3
--- NOTE | 2018-03-20 09:18 | PN ---
Copied To: Dallin Glynn MD Attending MD: Dallin Glynn MD DATE: 03/20/2018 SUBJECTIVE: The patient is in bed, in no acute distress. The patient is intubated on the ventilator in poor condition. PHYSICAL EXAMINATION: VITAL SIGNS: Temperature of 93, blood pressure is 105/50. The patient is on the vent, heart rate of 66. HEENT: Examination of HEENT reveals the ET tube placed. NECK: Supple. LUNGS: Have decreased breath sounds. HEART: Normal S1, S2. ABDOMEN: Soft, nontender. No rebound or guarding. LABORATORY DATA: Laboratory examination reveals a white count of 20,000, hemoglobin of 11, platelets of 283. Chemistries are noted. BUN of 26, creatinine of 0.6. Urinalysis is noted. Microbiology reveals a gram-negative aydee in the urine. The blood cultures are negative. The MRSA screen is negative. The patient had a chest x-ray this morning, which the results are not available. ASSESSMENT AND PLAN: This is a 58-year-old female, known to me from previous admissions with severe sepsis, ventilatory failure, respiratory failure with a gram-negative aydee in the urine as the source, must rule out healthcare-associated pneumonia in a patient with a history of bronchitis and bacteriuria in the past and history of Escherichia coli urinary tract infection, history of bilateral healthcare-associated pneumonia and history of myotonic dystrophy and hypothyroidism, history of tracheostomy and percutaneous endoscopic gastrostomy tube placement. The patient has anal cancer, status post resection. Currently on Zyvox, Azactam and doxycycline. Procalcitonin is pending. Aztreonam is active, doxycycline is active as is the Zyvox. We will follow closely with you. Dallin Glynn MD
--- NOTE | 2018-03-20 09:23 | PN ---
Copied To: Adam Leyva MD Attending MD: Adam Leyva MD DATE: 03/20/2018([id number]) PULMONARY NOTE SUBJECTIVE: The patient remains on the ventilator. She is lethargic. She is not sedated - discussed with nurse. PHYSICAL EXAMINATION: VITAL SIGNS: Temperature is 93, pulse 66, respirations 20/20, blood pressure 105/50. HEENT: Normocephalic, atraumatic. No JVD. CARDIOVASCULAR: Positive S1, S2. No S3 gallop. LUNGS: Decreased breath sounds at the bases. Less rhonchi. No wheezing. EXTREMITIES: Mild edema. No cyanosis or clubbing. GI: Abdomen is soft, nondistended. Bowel sounds are positive. SKIN: No acute rash. NEUROLOGIC: Limited at the present time. PERTINENT LABORATORY DATA: Chest x-ray was done this morning and reviewed. It is a poor film with considerable artifact. There are minimal linear markings noted at the left base. There are no apparent significant infiltrates. Official results are pending. Arterial blood gas was done on PRVC 20, tidal volume 400, FiO2 of 80%. Results are: PH 7.48, pCO2 of 37, pO2 of 189. IMPRESSION: 1. Recurrent respiratory failure. 2. Chronic respiratory insufficiency. 3. Advanced myotonic dystrophy. 4. Chronic obstructive pulmonary disease. 5. Mild bronchospasm. 6. Probable urosepsis. PLAN: The patient remains in the ICU and on the ventilator. She is lethargic. I did discuss the case with the night nurse at length. The night nurse stated that the sedation had been discontinued. The patient also remains hypothermic. I did review the chest x-ray as above. The chest x-ray is a poor film with considerable artifact. There are minimal linear markings noted at the left base. I do not appreciate any other significant infiltrates. Official results are pending. I have also reviewed the arterial blood gas. The arterial blood gas is significantly improved - with a significant decrease in the alveolar-arterial gradient. We can certainly decrease the FiO2 at this point in time. Inputs by Infectious Disease, Cardiology and Endocrine are also noted. Additional labs are pending. On physical exam, there is certainly less bronchospasm noted. I will continue with the current nebulizer treatments and decrease the intravenous steroids this morning. The patient remains critically ill with overall poor prognosis. I will discuss the above with the entire ICU team in the next few moments. I will also discuss the above with Dr. Contreras later this morning. Adam Leyva MD [facility]
[2018-03-20] MEDS: Linezolid 600 mg in D5W 300 ml 600 MG/300 ML BAG IVPB SCH ×2 (09:26→21:55)
[2018-03-20] MEDS: Insulin Detemir 100 units/ml Vial (Levemir) SC SCH ×3 (09:50→21:51)
[2018-03-20] MEDS: Dextrose 5%/0.45% NS 1,000 ML IV SCH ×2 (09:52→21:52)
--- NOTE | 2018-03-20 10:10 | CP.PCM.CON ---
History of Present Illness - History of Present Illness History of Present Illness: GI Fellow PGY5 Consult Note This is a 58 year old female with PMH HTN, COPD, mytonic dysthrophy type 1, diabetes, COPD, hypothyroidism, rectal cancer s/p resection and chemo, presents to the ER for SOB, AECOPD intubated by EMS for hypoxia. In CT imaging pt went into asystole/VF and Code Blue was called, after multiple rounds ROSC was achieved. Pt is undergoing hypothermia protocol, and is currently unresponsive, hypotensive on two Pressors Levophed at 15 and Vasopressin at 9. GI was consulted for elevated LFTs. On review of EMR no reported liver disease, cirrhosis or etoh abuse. Hepatitis panel from was negative. Of note pt was recently discharged 03/11/2018 for bacteuria and acute bronchitis on abx and steroids. ROS: A 12pt ROS nable to be obtained due to AMS PMH: As stated above PSH: trach placement (removed), peg placement (removed), ileostomy s/p reversal and anastomosis FH: Unable to be obtained due to AMS SH: Unable to be obtained due to AMS Past Patient History - Infectious Disease Hx of Infectious Diseases: None - Tetanus Immunizations Tetanus Immunization: Unknown - Past Social History Smoking Status: Never Smoked - CARDIAC Hx Hypertension: No - PULMONARY Hx Chronic Obstructive Pulmonary Disease (COPD): Yes - NEUROLOGICAL Hx Neurological Disorder: No - HEENT Hx HEENT Problems: Yes (pt stated "I need glasses") Hx Cataracts: Yes (bilateral cataract surgery) Other/Comment: removal of macular pocket of right eye/ jaw sx - RENAL Hx Chronic Kidney Disease: No - ENDOCRINE/METABOLIC Hx Diabetes Mellitus Type 2: Yes Hx Hypothyroidism: Yes - HEMATOLOGICAL/ONCOLOGICAL Hx Blood Disorders: Yes Hx Anemia: Yes (blood transfusion) Hx Cancer: Yes (rectal 2011) Hx Chemotherapy: Yes - INTEGUMENTARY Hx Dermatological Problems: No Hx Basil Cell: No Hx Eczema: No Hx Melanoma: No Hx Psoriasis: No Hx Squamous Cell: No Other/Comment: dry skin to feet, multiple surgical scars to abd, multiple small brown skin discoloratins to ble, slight red blanchable dry skin to buttocks, crooked great toes, multiple healed abd surgical scars - MUSCULOSKELETAL/RHEUMATOLOGICAL Hx Falls: Yes (last fall 12/01/17) - GASTROINTESTINAL Hx Gastrointestinal Disorders: Yes (RECTAL CA WAS ON CHEMO,HAD SX,PEG IN AND OUT ) Hx Colostomy: Yes (with reversal) Hx Diverticulitis: Yes Hx Gall Bladder Disease: Yes Other/Comment: fatty liver, colorectal sx, lower gi bleed, peg tube in and out, gastrosotmy 2011, colonoscopy 04/13/15 diverticulosis, hemorrhoids, polyp - GENITOURINARY/GYNECOLOGICAL Hx Reproductive Disorders: No - PSYCHIATRIC Hx Depression: No Hx Emotional Abuse: No Hx Physical Abuse: No Hx Substance Use: No - SURGICAL HISTORY Hx Surgeries: Yes (colostomy reversal) Hx Cholecystectomy: Yes Hx Hysterectomy: Yes (2005) Other/Comment: anterior resection and ileostomy 2011, 10/07/2012 bleeding ileostomy. exp lap, dissection portion of small bowel, dissection of ileostomy - ANESTHESIA Hx Anesthesia Reactions: No Hx Malignant Hyperthermia: No Meds Allergies/Adverse Reactions: Allergies Allergy/AdvReac Type Severity Reaction Status Date / Time Penicillins Allergy Severe ANGIOEDEMA Verified 03/18/18 09:58 - Medications Medications: Current Medications Dextrose (Dextrose 50% Inj) 0 ml IV STAT PRN; Protocol PRN Reason: Hypoglycemia Protocol Heparin Sodium (Porcine) (Heparin) 5,000 units SC Q8 GABE PRN Reason: Protocol Last Admin: 03/20/18 05:21 Dose: 5,000 units Dextrose (Dextrose 5% In Water 1000 Ml) 1,000 mls @ 0 mls/hr IV .Q0M PRN; Protocol; Per Protocol PRN Reason: Hypoglycemia Protocol NOREPINEPHRINE BIT/0.9 % NACL (Levophed 4 Mg/ 250 Ml Ns Premixed) 4 mg in 250 mls @ 15 mls/hr IV .Q15A55T PRN; Protocol; 4 MCG/MIN PRN Reason: TITRATE PER MD ORDER Last Titration: 03/20/18 09:56 Dose: 17 mcg/min, 63.75 mls/hr Propofol (Diprivan) 1,000 mg in 100 mls @ 1.817 mls/hr IV .Q24H PRN; Protocol; 5 MCG/KG/MIN PRN Reason: TITRATE PER MD ORDER Last Titration: 03/19/18 09:25 Dose: 0 mcg/kg/min, 0 mls/hr Aztreonam (Azactam 1 Gm) 100 mls @ 100 mls/hr IVPB Q8 GABE PRN Reason: Protocol Stop: 03/23/18 14:31 Last Admin: 03/20/18 05:21 Dose: 100 mls/hr Amiodarone HCl/Dextrose (Nexterone 360 Mg In D5w 200 Ml (Premix)) 360 mg in 200 mls @ 16.667 mls/hr IV .Q12H GABE; 0.5 MG/MIN PRN Reason: Protocol Last Admin: 03/20/18 07:33 Dose: 16.667 mls/hr Linezolid (Zyvox 600mg/300ml D5w) 600 mg in 300 mls @ 200 mls/hr IVPB Q12 GABE PRN Reason: Protocol Stop: 03/25/18 22:01 Last Admin: 03/20/18 09:26 Dose: 200 mls/hr Dextrose/Sodium Chloride (Dextrose 5%/0.45% Ns 1000 Ml) 1,000 mls @ 100 mls/hr IV .Q10H GABE Last Admin: 03/20/18 09:52 Dose: 100 mls/hr Phenylephrine HCl 40 mg/ (Sodium Chloride) 254 mls @ 38.1 mls/hr IV .Q6H40M PRN ; Protocol; 100 MCG/MIN PRN Reason: TITRATE PER MD ORDER Vasopressin 20 units/ Sodium (Chloride) 101 mls @ 9.09 mls/hr IV .Q11H7M GABE; 0.03 U/MIN PRN Reason: Protocol Last Admin: 03/20/18 05:27 Dose: 9.09 mls/hr Doxycycline Hyclate 100 mg/ (Sodium Chloride) 100 mls @ 100 mls/hr IVPB Q12 GABE PRN Reason: Protocol Last Admin: 03/20/18 09:27 Dose: 100 mls/hr Potassium Chloride (Potassium Chloride 20 Meq/100 Ml) 20 meq in 100 mls @ 50 mls/hr IVPB ONCE ONE Stop: 03/20/18 10:43 Last Admin: 03/20/18 08:49 Dose: 50 mls/hr Insulin Detemir (Levemir) 10 unit SC Q12 GABE Last Admin: 03/20/18 09:57 Dose: Not Given Levalbuterol HCl (Xopenex) 1.25 mg IH [id number] GABE Last Admin: 03/20/18 07:24 Dose: 1.25 mg Methylprednisolone (Solu-Medrol) 40 mg IVP Q12 [facility] Last Admin: 03/20/18 09:27 Dose: 40 mg Pantoprazole Sodium (Protonix Inj) 40 mg IVP DAILY [facility] Last Admin: 03/20/18 09:27 Dose: 40 mg Physical Exam - Constitutional Appears: Toxic, In Acute Distress, Chronically Ill - Head Exam Head Exam: ATRAUMATIC, NORMAL INSPECTION, NORMOCEPHALIC - Eye Exam Eye Exam: PERRL - ENT Exam ENT Exam: Mucous Membranes Dry Additional comments: ett - Neck Exam Neck exam: Positive for: Normal Inspection - Respiratory Exam Respiratory Exam: Rales, Respiratory Distress - Cardiovascular Exam Cardiovascular Exam: Tachycardia, +S1, +S2 - GI/Abdominal Exam GI & Abdominal Exam: Hypoactive Bowel Sounds, Soft. absent: Distended, Guarding , Organomegaly, Tenderness - Rectal Exam Rectal Exam: Deferred - Extremities Exam Extremities exam: Positive for: normal inspection - Skin Skin Exam: Dry, Intact, Pallor Results - Vital Signs Recent Vital Signs: Last Vital Signs Temp 93 F L 03/20/18 04:00 Pulse 66 03/20/18 06:00 Resp 18 03/19/18 10:00 BP 105/50 L 03/20/18 05:27 Pulse Ox 90 L 03/20/18 01:00 - Labs Result Diagrams: 03/20/18 06:00 03/20/18 06:00 Labs: Laboratory Results - last 24 hr 03/19/18 03/19/18 03/19/18 05:46 10:40 11:41 WBC RBC Hgb Hct MCV MCH MCHC RDW Plt Count MPV pCO2 pO2 HCO3 ABG pH ABG Total CO2 ABG O2 Saturation ABG O2 Content ABG Base Excess ABG Hemoglobin ABG Carboxyhemoglobin POC ABG HHb (Measured) ABG Methemoglobin ABG O2 Capacity VBG pH VBG pCO2 VBG HCO3 VBG Total CO2 VBG O2 Sat (Calc) VBG Base Excess VBG Potassium Hgb O2 Saturation Sodium Chloride Glucose Lactate FiO2 Potassium Carbon Dioxide Anion Gap BUN Creatinine Est GFR ( Amer) Est GFR (Non-Af Amer) POC Glucose (mg/dL) 101 403 H* Random Glucose Hemoglobin A1c 9.7 H D Calcium Total Bilirubin AST ALT Alkaline Phosphatase Total Protein Albumin Globulin Albumin/Globulin Ratio Venous Blood Potassium 03/19/18 03/19/18 03/19/18 11:43 11:48 11:48 WBC RBC Hgb Hct MCV MCH MCHC RDW Plt Count MPV pCO2 pO2 48 HCO3 ABG pH ABG Total CO2 ABG O2 Saturation ABG O2 Content ABG Base Excess ABG Hemoglobin ABG Carboxyhemoglobin POC ABG HHb (Measured) ABG Methemoglobin ABG O2 Capacity VBG pH 7.28 L VBG pCO2 66.0 H* VBG HCO3 31.0 H VBG Total CO2 33.0 H VBG O2 Sat (Calc) 82.8 H VBG Base Excess 2.4 H VBG Potassium 3.6 Hgb O2 Saturation Sodium 144 141.0 Chloride 101 102.0 Glucose 103 Lactate 3.8 H FiO2 21.0 Potassium 3.8 Carbon Dioxide 33 Anion Gap 13 BUN 33 H Creatinine 0.7 Est GFR ( Amer) > 60 Est GFR (Non-Af Amer) > 60 POC Glucose (mg/dL) 95 Random Glucose 111 H Hemoglobin A1c Calcium 8.3 L Total Bilirubin AST ALT Alkaline Phosphatase Total Protein Albumin Globulin Albumin/Globulin Ratio Venous Blood Potassium 3.6 03/19/18 03/19/18 03/19/18 12:36 13:27 15:57 WBC RBC Hgb Hct MCV MCH MCHC RDW Plt Count MPV pCO2 pO2 HCO3 ABG pH ABG Total CO2 ABG O2 Saturation ABG O2 Content ABG Base Excess ABG Hemoglobin ABG Carboxyhemoglobin POC ABG HHb (Measured) ABG Methemoglobin ABG O2 Capacity VBG pH VBG pCO2 VBG HCO3 VBG Total CO2 VBG O2 Sat (Calc) VBG Base Excess VBG Potassium Hgb O2 Saturation Sodium Chloride Glucose Lactate FiO2 Potassium Carbon Dioxide Anion Gap BUN Creatinine Est GFR ( Amer) Est GFR (Non-Af Amer) POC Glucose (mg/dL) 92 97 81 Random Glucose Hemoglobin A1c Calcium Total Bilirubin AST ALT Alkaline Phosphatase Total Protein Albumin Globulin Albumin/Globulin Ratio Venous Blood Potassium 03/19/18 03/20/18 03/20/18 20:17 00:28 01:20 WBC RBC Hgb Hct MCV MCH MCHC RDW Plt Count MPV pCO2 pO2 HCO3 ABG pH ABG Total CO2 ABG O2 Saturation ABG O2 Content ABG Base Excess ABG Hemoglobin ABG Carboxyhemoglobin POC ABG HHb (Measured) ABG Methemoglobin ABG O2 Capacity VBG pH VBG pCO2 VBG HCO3 VBG Total CO2 VBG O2 Sat (Calc) VBG Base Excess VBG Potassium Hgb O2 Saturation Sodium 138 Chloride 102 Glucose Lactate FiO2 Potassium 3.5 L Carbon Dioxide 28 Anion Gap 12 BUN 26 H Creatinine 0.6 L Est GFR ( Amer) > 60 Est GFR (Non-Af Amer) > 60 POC Glucose (mg/dL) 97 124 H Random Glucose 118 H Hemoglobin A1c Calcium 7.9 L Total Bilirubin AST ALT Alkaline Phosphatase Total Protein Albumin Globulin Albumin/Globulin Ratio Venous Blood Potassium 03/20/18 03/20/18 03/20/18 03:51 06:00 06:00 WBC 20.4 H RBC 3.99 Hgb 11.6 L Hct 35.1 L MCV 88.0 MCH 29.1 MCHC 33.0 RDW 14.4 Plt Count 283 MPV 12.5 H pCO2 pO2 HCO3 ABG pH ABG Total CO2 ABG O2 Saturation ABG O2 Content ABG Base Excess ABG Hemoglobin ABG Carboxyhemoglobin POC ABG HHb (Measured) ABG Methemoglobin ABG O2 Capacity VBG pH VBG pCO2 VBG HCO3 VBG Total CO2 VBG O2 Sat (Calc) VBG Base Excess VBG Potassium Hgb O2 Saturation Sodium 137 Chloride 102 Glucose Lactate FiO2 Potassium 3.4 L Carbon Dioxide 27 Anion Gap 11 BUN 24 H Creatinine 0.6 L Est GFR ( Amer) > 60 Est GFR (Non-Af Amer) > 60 POC Glucose (mg/dL) 122 H Random Glucose 136 H Hemoglobin A1c Calcium 7.6 L Total Bilirubin 0.3 AST 1635 H ALT 1182 H Alkaline Phosphatase 115 Total Protein 5.0 L Albumin 2.5 L Globulin 2.5 Albumin/Globulin Ratio 1.0 L Venous Blood Potassium 03/20/18 06:20 WBC RBC Hgb Hct MCV MCH MCHC RDW Plt Count MPV pCO2 37 pO2 189.0 H HCO3 27.6 ABG pH 7.48 H ABG Total CO2 28.7 H ABG O2 Saturation 97.9 ABG O2 Content 16.5 ABG Base Excess 4.0 H ABG Hemoglobin 11.7 ABG Carboxyhemoglobin 0 L POC ABG HHb (Measured) 2.1 ABG Methemoglobin 0.2 ABG O2 Capacity 16.9 VBG pH VBG pCO2 VBG HCO3 VBG Total CO2 VBG O2 Sat (Calc) VBG Base Excess VBG Potassium Hgb O2 Saturation 97.7 Sodium Chloride Glucose Lactate FiO2 80.0 Potassium Carbon Dioxide Anion Gap BUN Creatinine Est GFR ( Amer) Est GFR (Non-Af Amer) POC Glucose (mg/dL) Random Glucose Hemoglobin A1c Calcium Total Bilirubin AST ALT Alkaline Phosphatase Total Protein Albumin Globulin Albumin/Globulin Ratio Venous Blood Potassium Assessment & Plan - Assessment and Plan (Free Text) Assessment: This is a 58yF presenting with SOB. 1. Hypoxic respiratory failure 2. VDF 3. Cardiac arrest with ROSC 4. Ventricular Tachycardia 5. Shock 6. Elevated LFTs 7. Hyperglycemia Plan: -Continue supportive care -Pt critically ill, hypotensive on 2 Pressors -Elevated LFTs likely from shock liver s/p cardiac arrest and persistent hypotension -LFTs are trending down from initial elevated 03/18 -Hepatitis panel negative -Monitor LFTs daily, INR wnl, plt wnl, not in liver failure -Pt is also on many hepatotoxic drugs like amiodarone and doxycycline -Will order Abd US Doppler to evaluate portal vein patency -Will continue to follow pt closely The above H/P and A/P was discussed with attending physician Dr. Parikh who agrees with the above mentioned plan of care.
--- NOTE | 2018-03-20 12:15 | PN ---
Copied To: Tom Contreras DO Attending MD: Tom Contreras DO DATE: 03/20/2018 SUBJECTIVE: She is in the Intensive Care Unit right now. She is still on the ventilator, she is not doing that well and not really waking up. I am going to put Neurology in to see her. She is on Azactam, dextrose, Diprivan, doxycycline, heparin, Levemir, Levophed, Nexterone, phenylephrine, potassium, Protonix, Solu-Medrol, vasopressin, Xopenex and Zyvox. PHYSICAL EXAMINATION: VITAL SIGNS: She has a 98.3 temp, 66 pulse, 105/50 blood pressure, 16 respiratory rate. HEENT: Head is atraumatic, normocephalic. HEART: Regular rate. LUNGS: Decreased breath sounds. ABDOMEN: Soft. EXTREMITIES: No edema. LABORATORY DATA: She is in trouble, she has 20.4 white count, 11.6 hemoglobin, 35.1 hematocrit with 283 platelets. Her lactate is 3.8 and coming down, but staying high. She has 137 sodium; potassium 3.4, we have got to replace potassium; BUN 24, creatinine 0.6, GFR is greater than 60, sugar is 136, calcium is 7.6, total bili is 0.3, AST is 1635, ALT is 1182 and alk phos is 115, which is very high. ASSESSMENT AND PLAN: She will have a Neurology consult. She also has urinary tract infection, unfortunately worried, is not doing very well at all. She has gram-negative rods growing out of the urine. I will continue with aggressive treatment and care. I will get GI for the liver and Neuro for the mentation. We will continue with aggressive treatment and care with Infectious Disease, Cardio, architectural wood model maker, Pulmonary. Tom Contreras DO
--- NOTE | 2018-03-20 12:39 | RAD ---
Date of service: 03/20/2018 HISTORY: f/u COMPARISON: Multiple serial examinations preceding the most recent study: March 19, 2018. Study performed 06:22 FINDINGS: LUNGS: Persistent primarily lower lobe infiltrates. Low lung volumes. PLEURA: No significant pleural effusion identified, no pneumothorax apparent. CARDIOVASCULAR: No radiographic findings to suggest acute or significant cardiovascular disease. OSSEOUS STRUCTURES: No significant abnormalities. VISUALIZED UPPER ABDOMEN: Normal. OTHER FINDINGS: Stable position of endotracheal tube and venous access catheter. IMPRESSION: No significant interval change compared to the prior examination(s).
[2018-03-20] MEDS ORDERED: Magnesium Sulfate 1 gm in D5W 1 GM/100 ML BAG IVPB ONE (13:55)
--- NOTE | 2018-03-20 14:06 | PN ---
Copied To: Shauna De La Rosa MD Attending MD: Shauna De La Rosa MD DATE: 03/20/2018 ENDOCRINOLOGY FOLLOWUP NOTE LOCATION: In CCU 129, room 5. SUBJECTIVE: This is a 58-year-old female presenting here with acute respiratory failure and remains endotracheally intubated and unresponsive with persistent hypotension as noted thereof. She is currently on 2 IV pressors with systolic levels only running in the 60-80 mmHg as noted. His glycemic levels are fluctuating, but improved and the latest chemistry showed a BUN of 24, sodium 137, potassium 3.4, chloride 102, CO2 27, glucose 136 and creatinine 0.6. His glucose levels have ranged from 98-122 mg/dL. His latest calcium level is 7.6 with an albumin level of 2.5 and a corrected calcium of 9.1 mg/dL. His liver function studies are extremely elevated as noted. So at this time, we will continue the Levemir given as basal insulin at 10 units subcu every 12 hours at 08:00 a.m. and 08:00 p.m. daily is given. We will also continue the low-dose correction scale using regular insulin as ordered. We will obtain serial chemistries and supplement accordingly as needed. We will follow. Shauna De La Rosa MD : 03/20/2018 13:18:00
--- NOTE | 2018-03-20 14:33 | CP.CCUPN ---
<KarolynPreethi ageestanley - Last Filed: 03/20/18 14:26> CCU Subjective - Physician Review Events Since Last Encounter (Free Text): Major Almendarez, PGY-1 ICU Progress Note Patient and examined at bedside this morning. No acute events overnight. Levophed requirement has been increasing today to maintain MAP above 65. Currently on levophed and vassopresin. Per hypothermia protocol, re-warming started yesterday and will hit target goal of 98.6 degrees today. Will neuro- prognosticate at 72 hours post cardiopulmonary arrest. Limited ROS due to non- responsive status. CCU Objective - Vital Signs / Intake & Output Vital Signs (Last 4 hours): Vital Signs Temp Pulse BP BP Pulse Ox 03/20/18 13:40 58 L 03/20/18 13:39 101/51 L 03/20/18 13:00 69 113/46 L 100 03/20/18 12:56 86/54 L 03/20/18 12:00 65 91/46 L 100 03/20/18 11:37 99.6 F 03/20/18 11:36 78/65 L 03/20/18 11:00 75 101/70 100 03/20/18 10:57 107/56 L 03/20/18 10:43 98.7 F Intake and Output (Last 8hrs): Intake & Output 03/19/18 03/20/18 03/20/18 22:59 06:59 14:59 Intake Total 2082 2049 130 Output Total 550 600 Balance 1533 1450 130 Intake: IV 2082 2049 130 Left Antecubital 1200 Left Forearm 0 Right Antecubital 0 amioderone 200 1800 insulin 8 levophed 500 vasopressin 90 Oral 0 Output: Urine 550 600 Urethral (Carrera) 550 600 Other: # Bowel Movements 1 1 - Physical Exam Physical Exam Limitations: Positive for: Other (non responsive) Head: Positive for: Atraumatic Pupils: Positive for: PERRL, Sluggish Mouth: Positive for: Dry Nose (Internal): Positive for: Normal Inspection Respiratory/Chest: Positive for: Clear to Auscultation. Negative for: Wheezes Cardiovascular: Positive for: Normal S1, S2, Peripheal Pulses Present Abdomen: Negative for: Distention, Guarding Upper Extremity: Positive for: Normal Inspection, NORMAL PULSES Lower Extremity: Positive for: Normal Inspection, NORMAL PULSES Neurological: Positive for: Other (unarousable and non responsive) Psychiatric: Negative for: Alert - Medications Active Medications: Active Medications Generic Name Dose Route Start Last Admin Trade Name Freq PRN Reason Stop Dose Admin Dextrose 0 ml 03/18/18 11:22 Dextrose 50% Inj IV STAT PRN Hypoglycemia Protocol Protocol Heparin Sodium (Porcine) 5,000 units 03/18/18 22:00 03/20/18 14:11 Heparin SC 5,000 units Q8 GABE Administration Protocol Dextrose 1,000 mls @ 0 mls/hr 03/18/18 11:22 Dextrose 5% In Water 1000 Ml IV .Q0M PRN Hypoglycemia Protocol Protocol Per Protocol NOREPINEPHRINE BIT/0.9 % NACL 4 mg in 250 mls @ 15 mls/hr 03/18/18 13:04 09:56 Levophed 4 Mg/ 250 Ml Ns Premixed IV 17 mcg/min .[id number] PRN 63.75 mls/hr TITRATE PER MD ORDER Titration Protocol 4 MCG/MIN Propofol 1,000 mg in 100 mls @ 1.817 mls/hr 03/18/18 14:23 03/19/18 09:25 Diprivan IV 0 mcg/kg/min .Q24H PRN 0 mls/hr TITRATE PER MD ORDER Titration Protocol 5 MCG/KG/MIN Aztreonam 100 mls @ 100 mls/hr 03/18/18 14:30 03/20/18 14:11 Azactam 1 Gm IVPB 03/23/18 14:31 100 mls/hr Q8 GABE Administration Protocol Amiodarone HCl/Dextrose 360 mg in 200 mls @ 16.667 mls/hr 03/18/18 20:15 07:33 Nexterone 360 Mg In D5w 200 Ml (Premix) IV 16.667 mls/hr .Q12H GABE Administration Protocol 0.5 MG/MIN Linezolid 600 mg in 300 mls @ 200 mls/hr 03/18/18 22:00 03/20/18 09:26 Zyvox 600mg/300ml D5w IVPB 03/25/18 22:01 200 mls/hr Q12 GABE Administration Protocol Dextrose/Sodium Chloride 1,000 mls @ 100 mls/hr 03/19/18 01:45 03/20/18 09:52 Dextrose 5%/0.45% Ns 1000 Ml IV 100 mls/hr .Q10H GABE Administration Phenylephrine HCl 40 mg/ 254 mls @ 38.1 mls/hr 03/19/18 07:41 Sodium Chloride IV .Q6H40M PRN TITRATE PER MD ORDER Protocol 100 MCG/MIN Vasopressin 20 units/ Sodium 101 mls @ 9.09 mls/hr 03/19/18 07:45 03/20/18 05 :27 Chloride IV 9.09 mls/hr .Q11H7M GABE Administration Protocol 0.03 U/MIN Doxycycline Hyclate 100 mg/ 100 mls @ 100 mls/hr 03/19/18 12:45 03/20/18 09: 27 Sodium Chloride IVPB 100 mls/hr Q12 GABE Administration Protocol Magnesium Sulfate/Dextrose 1 gm in 100 mls @ 100 mls/hr 03/20/18 13:55 14:11 Magnesium Sulfate 1 Gm/100 Ml D5w IVPB 03/20/18 14:54 100 mls/hr ONCE ONE Administration Insulin Detemir 10 unit 03/20/18 08:00 03/20/18 09:57 Levemir SC Not Given Q12 GABE Levalbuterol HCl 1.25 mg 03/19/18 08:00 03/20/18 13:01 Xopenex IH 1.25 mg [id number] GABE Administration Methylprednisolone 40 mg 03/20/18 10:00 03/20/18 09:27 Solu-Medrol IVP 40 mg Q12 GABE Administration Pantoprazole Sodium 40 mg 03/18/18 14:45 03/20/18 09:27 Protonix Inj IVP 40 mg DAILY GABE Administration - Patient Studies Lab Studies: Microbiology Studies 03/18/18 13:07 MRSA Culture (Admit) - Final Naris MRSA NOT DETECTED Lab Studies 03/20/18 03/20/18 03/20/18 Range/Units 08:14 06:20 06:00 WBC (4.5-11.0) 10^3/ul RBC (3.5-6.1) 10^6/uL Hgb (12.0-16.0) g/dL Hct (36.0-48.0) % MCV (80.0-105.0) fl MCH (25.0-35.0) pg MCHC (31.0-37.0) g/dl RDW (11.5-14.5) % Plt Count (120.0-450.0) 10^3/uL MPV (7.0-11.0) fl pCO2 37 (35-45) mm/Hg pO2 189.0 H (80-100) mm/Hg HCO3 27.6 (21-28) mmol/L ABG pH 7.48 H (7.35-7.45) ABG Total CO2 28.7 H (22-28) mmol.L ABG O2 Saturation 97.9 (95-98) % ABG O2 Content 16.5 (15-23) ML/dl ABG Base Excess 4.0 H (-2.0-3.0) mmol/L ABG Hemoglobin 11.7 (11.7-17.4) g/dL ABG Carboxyhemoglobin 0 L (0.5-1.5) % POC ABG HHb (Measured) 2.1 (0-5) % ABG Methemoglobin 0.2 (0.0-3.0) % ABG O2 Capacity 16.9 (16-24) mL/dl Hgb O2 Saturation 97.7 (95.0-98.0) % FiO2 80.0 % Sodium (132-148) mmol/L Potassium (3.6-5.0) mmol/L Chloride (98-107) mmol/L Carbon Dioxide (21-33) mmol/L Anion Gap (10-20) BUN (7-21) mg/dL Creatinine (0.7-1.2) mg/dl Est GFR ( Amer) Est GFR (Non-Af Amer) POC Glucose (mg/dL) 98 (65-110) mg/dL Random Glucose (70-110) mg/dL Calcium (8.4-10.5) mg/dL Magnesium 1.7 (1.7-2.2) mg/dL Total Bilirubin (0.2-1.3) mg/dL AST (14-36) U/L ALT (7-56) U/L Alkaline Phosphatase (38-126) U/L Total Protein (5.8-8.3) g/dL Albumin (3.0-4.8) g/dL Globulin gm/dL Albumin/Globulin Ratio (1.1-1.8) 03/20/18 03/20/18 03/20/18 Range/Units 06:00 06:00 03:51 WBC 20.4 H (4.5-11.0) 10^3/ul RBC 3.99 (3.5-6.1) 10^6/uL Hgb 11.6 L (12.0-16.0) g/dL Hct 35.1 L (36.0-48.0) % MCV 88.0 (80.0-105.0) fl MCH 29.1 (25.0-35.0) pg MCHC 33.0 (31.0-37.0) g/dl RDW 14.4 (11.5-14.5) % Plt Count 283 (120.0-450.0) 10^3/uL MPV 12.5 H (7.0-11.0) fl pCO2 (35-45) mm/Hg pO2 (80-100) mm/Hg HCO3 (21-28) mmol/L ABG pH (7.35-7.45) ABG Total CO2 (22-28) mmol.L ABG O2 Saturation (95-98) % ABG O2 Content (15-23) ML/dl ABG Base Excess (-2.0-3.0) mmol/L ABG Hemoglobin (11.7-17.4) g/dL ABG Carboxyhemoglobin (0.5-1.5) % POC ABG HHb (Measured) (0-5) % ABG Methemoglobin (0.0-3.0) % ABG O2 Capacity (16-24) mL/dl Hgb O2 Saturation (95.0-98.0) % FiO2 % Sodium 137 (132-148) mmol/L Potassium 3.4 L (3.6-5.0) mmol/L Chloride 102 (98-107) mmol/L Carbon Dioxide 27 (21-33) mmol/L Anion Gap 11 (10-20) BUN 24 H (7-21) mg/dL Creatinine 0.6 L (0.7-1.2) mg/dl Est GFR ( Amer) > 60 Est GFR (Non-Af Amer) > 60 POC Glucose (mg/dL) 122 H (65-110) mg/dL Random Glucose 136 H (70-110) mg/dL Calcium 7.6 L (8.4-10.5) mg/dL Magnesium (1.7-2.2) mg/dL Total Bilirubin 0.3 (0.2-1.3) mg/dL AST 1635 H (14-36) U/L ALT 1182 H (7-56) U/L Alkaline Phosphatase 115 (38-126) U/L Total Protein 5.0 L (5.8-8.3) g/dL Albumin 2.5 L (3.0-4.8) g/dL Globulin 2.5 gm/dL Albumin/Globulin Ratio 1.0 L (1.1-1.8) 03/20/18 03/20/18 03/19/18 Range/Units 01:20 00:28 20:17 WBC (4.5-11.0) 10^3/ul RBC (3.5-6.1) 10^6/uL Hgb (12.0-16.0) g/dL Hct (36.0-48.0) % MCV (80.0-105.0) fl MCH (25.0-35.0) pg MCHC (31.0-37.0) g/dl RDW (11.5-14.5) % Plt Count (120.0-450.0) 10^3/uL MPV (7.0-11.0) fl pCO2 (35-45) mm/Hg pO2 (80-100) mm/Hg HCO3 (21-28) mmol/L ABG pH (7.35-7.45) ABG Total CO2 (22-28) mmol.L ABG O2 Saturation (95-98) % ABG O2 Content (15-23) ML/dl ABG Base Excess (-2.0-3.0) mmol/L ABG Hemoglobin (11.7-17.4) g/dL ABG Carboxyhemoglobin (0.5-1.5) % POC ABG HHb (Measured) (0-5) % ABG Methemoglobin (0.0-3.0) % ABG O2 Capacity (16-24) mL/dl Hgb O2 Saturation (95.0-98.0) % FiO2 % Sodium 138 (132-148) mmol/L Potassium 3.5 L (3.6-5.0) mmol/L Chloride 102 (98-107) mmol/L Carbon Dioxide 28 (21-33) mmol/L Anion Gap 12 (10-20) BUN 26 H (7-21) mg/dL Creatinine 0.6 L (0.7-1.2) mg/dl Est GFR ( Amer) > 60 Est GFR (Non-Af Amer) > 60 POC Glucose (mg/dL) 124 H 97 (65-110) mg/dL Random Glucose 118 H (70-110) mg/dL Calcium 7.9 L (8.4-10.5) mg/dL Magnesium (1.7-2.2) mg/dL Total Bilirubin (0.2-1.3) mg/dL AST (14-36) U/L ALT (7-56) U/L Alkaline Phosphatase (38-126) U/L Total Protein (5.8-8.3) g/dL Albumin (3.0-4.8) g/dL Globulin gm/dL Albumin/Globulin Ratio (1.1-1.8) // Range/Units 15:57 WBC (4.5-11.0) 10^3/ul RBC (3.5-6.1) 10^6/uL Hgb (12.0-16.0) g/dL Hct (36.0-48.0) % MCV (80.0-105.0) fl MCH (25.0-35.0) pg MCHC (31.0-37.0) g/dl RDW (11.5-14.5) % Plt Count (120.0-450.0) 10^3/uL MPV (7.0-11.0) fl pCO2 (35-45) mm/Hg pO2 (80-100) mm/Hg HCO3 (21-28) mmol/L ABG pH (7.35-7.45) ABG Total CO2 (22-28) mmol.L ABG O2 Saturation (95-98) % ABG O2 Content (15-23) ML/dl ABG Base Excess (-2.0-3.0) mmol/L ABG Hemoglobin (11.7-17.4) g/dL ABG Carboxyhemoglobin (0.5-1.5) % POC ABG HHb (Measured) (0-5) % ABG Methemoglobin (0.0-3.0) % ABG O2 Capacity (16-24) mL/dl Hgb O2 Saturation (95.0-98.0) % FiO2 % Sodium (132-148) mmol/L Potassium (3.6-5.0) mmol/L Chloride (98-107) mmol/L Carbon Dioxide (21-33) mmol/L Anion Gap (10-20) BUN (7-21) mg/dL Creatinine (0.7-1.2) mg/dl Est GFR ( Amer) Est GFR (Non-Af Amer) POC Glucose (mg/dL) 81 (65-110) mg/dL Random Glucose (70-110) mg/dL Calcium (8.4-10.5) mg/dL Magnesium (1.7-2.2) mg/dL Total Bilirubin (0.2-1.3) mg/dL AST (14-36) U/L ALT (7-56) U/L Alkaline Phosphatase (38-126) U/L Total Protein (5.8-8.3) g/dL Albumin (3.0-4.8) g/dL Globulin gm/dL Albumin/Globulin Ratio (1.1-1.8) Laboratory Results - last 24 hr 03/19/18 03/19/18 03/20/18 15:57 20:17 00:28 WBC RBC Hgb Hct MCV MCH MCHC RDW Plt Count MPV pCO2 pO2 HCO3 ABG pH ABG Total CO2 ABG O2 Saturation ABG O2 Content ABG Base Excess ABG Hemoglobin ABG Carboxyhemoglobin POC ABG HHb (Measured) ABG Methemoglobin ABG O2 Capacity Hgb O2 Saturation FiO2 Sodium Potassium Chloride Carbon Dioxide Anion Gap BUN Creatinine Est GFR ( Amer) Est GFR (Non-Af Amer) POC Glucose (mg/dL) 81 97 124 H Random Glucose Calcium Magnesium Total Bilirubin AST ALT Alkaline Phosphatase Total Protein Albumin Globulin Albumin/Globulin Ratio 03/20/18 03/20/18 03/20/18 01:20 03:51 06:00 WBC RBC Hgb Hct MCV MCH MCHC RDW Plt Count MPV pCO2 pO2 HCO3 ABG pH ABG Total CO2 ABG O2 Saturation ABG O2 Content ABG Base Excess ABG Hemoglobin ABG Carboxyhemoglobin POC ABG HHb (Measured) ABG Methemoglobin ABG O2 Capacity Hgb O2 Saturation FiO2 Sodium 138 137 Potassium 3.5 L 3.4 L Chloride 102 102 Carbon Dioxide 28 27 Anion Gap 12 11 BUN 26 H 24 H Creatinine 0.6 L 0.6 L Est GFR ( Amer) > 60 > 60 Est GFR (Non-Af Amer) > 60 > 60 POC Glucose (mg/dL) 122 H Random Glucose 118 H 136 H Calcium 7.9 L 7.6 L Magnesium Total Bilirubin 0.3 AST 1635 H ALT 1182 H Alkaline Phosphatase 115 Total Protein 5.0 L Albumin 2.5 L Globulin 2.5 Albumin/Globulin Ratio 1.0 L 03/20/18 03/20/18 03/20/18 06:00 06:00 06:20 WBC 20.4 H RBC 3.99 Hgb 11.6 L Hct 35.1 L MCV 88.0 MCH 29.1 MCHC 33.0 RDW 14.4 Plt Count 283 MPV 12.5 H pCO2 37 pO2 189.0 H HCO3 27.6 ABG pH 7.48 H ABG Total CO2 28.7 H ABG O2 Saturation 97.9 ABG O2 Content 16.5 ABG Base Excess 4.0 H ABG Hemoglobin 11.7 ABG Carboxyhemoglobin 0 L POC ABG HHb (Measured) 2.1 ABG Methemoglobin 0.2 ABG O2 Capacity 16.9 Hgb O2 Saturation 97.7 FiO2 80.0 Sodium Potassium Chloride Carbon Dioxide Anion Gap BUN Creatinine Est GFR ( Amer) Est GFR (Non-Af Amer) POC Glucose (mg/dL) Random Glucose Calcium Magnesium 1.7 Total Bilirubin AST ALT Alkaline Phosphatase Total Protein Albumin Globulin Albumin/Globulin Ratio 03/20/18 08:14 WBC RBC Hgb Hct MCV MCH MCHC RDW Plt Count MPV pCO2 pO2 HCO3 ABG pH ABG Total CO2 ABG O2 Saturation ABG O2 Content ABG Base Excess ABG Hemoglobin ABG Carboxyhemoglobin POC ABG HHb (Measured) ABG Methemoglobin ABG O2 Capacity Hgb O2 Saturation FiO2 Sodium Potassium Chloride Carbon Dioxide Anion Gap BUN Creatinine Est GFR ( Amer) Est GFR (Non-Af Amer) POC Glucose (mg/dL) 98 Random Glucose Calcium Magnesium Total Bilirubin AST ALT Alkaline Phosphatase Total Protein Albumin Globulin Albumin/Globulin Ratio Fingerstick Blood Sugar Results: 155 Assessment/Plan - Assessment and Plan (Free Text) Assessment: This is a 58 year old female with PMH of chronic respiratory insufficiency, severe COPD, DM, multiple sclerosis, myotonic dystrophy, hypothyroidism, and renal cancer presenting to the ICU for management of acute hypoxic respiratory failure requiring ventilator complicated by cardiopulmonary assist and sepsis secondary to likely UTI. Patient had code blue called and chest compressions performed with ROSC after approximately 15 minutes on 03/18. Overall prognosis is guarded. Plan: Neuro: -hypothermia protocol ended 6pm yesterday, re-warming protocol today -currently intubated -not on sedation and patient not arousable and non responsive Cardio: -maintain MAP>65 -will monitor vitals including HR and BP closely. BP currently in the 80-90s/40- 50s and HR 50s -Echo shows EF 55-60%, RVSP 34, no preicardial effusion. Trace TR and MR -On amiodarone drip, previously in Vtach during code heart -On levophed and vasopressin drip. Increasing levophed requirement noted -previous EKG noted and reviewed, showed rate of 115 with right heart strain on presentation -Cardio consulted, Dr. Mcginnis Lungs: -vent settings of TV 400, PEEP 5, RR 20 and FiO2 80% -SaO2 >90% -supplementary O2 PRN -solumedrol 40mg q8, xopenex -CXR today shows no significant interval change from previous bibasilar subsegmental atelectasis -Pulm consulted, Dr. Leyva Renal: -maintain euvolemia -avoid nephrotoxic agents, hypochloremia -replace electrolytes as needed -BUN/Cr is 24/0.6, will monitor -K this morning 3.4, given KCl -Mg today 1.7, given replacement -dextrose 5% in 1/2NS @ 100 ml/hr -ABG today reads pH/pO2/pCO2/bicarb of 7.48/189/37/27.6. Primary respiratory alkalosis -U/A positive for leukocyte esterase, large bacteria, 20-25 WBC -I/O: 4420/1150. Positive balance of 3.27 L Heme: -Hg today is 11.6 WNL -LE duplex shows no DVT in legs, limited study -DVT ppx with heparin 5k SC Endo: -maintain euglycemia -Gap of 15 on admission, no ketones in urine -finger sticks q4 -currently on levemir 20 units q12 -A1c 9.7 -Endo consulted, Dr. De La Rosa ID: -WBC is 20.4 from 19.9, afebrile -On aztreonam, doxy and zyvox -urine culture shows E coli, blood culture negative 48 hours -ID consulted, Dr. Glynn -GI: -GI prophylaxis with protonix <Cook,Bilal - Last Filed: 03/20/18 15:48> CCU Objective - Vital Signs / Intake & Output Vital Signs (Last 4 hours): Vital Signs Pulse BP BP Pulse Ox 03/20/18 14:00 65 106/41 L 100 03/20/18 13:40 58 L 03/20/18 13:39 101/51 L 03/20/18 13:00 69 113/46 L 100 03/20/18 12:56 86/54 L 03/20/18 12:00 65 91/46 L 100 Intake and Output (Last 8hrs): Intake & Output 03/20/18 03/20/18 03/20/18 06:59 14:59 22:59 Intake Total 2049 130 Output Total 600 Balance 1450 130 Intake: IV 2049 130 amioderone 1800 Output: Urine 600 Urethral (Carrera) 600 Other: # Bowel Movements 1 - Medications Active Medications: Active Medications Generic Name Dose Route Start Last Admin Trade Name Freq PRN Reason Stop Dose Admin Dextrose 0 ml 03/18/18 11:22 Dextrose 50% Inj IV STAT PRN Hypoglycemia Protocol Protocol Heparin Sodium (Porcine) 5,000 units 03/18/18 22:00 03/20/18 14:11 Heparin SC 5,000 units Q8 GABE Administration Protocol Dextrose 1,000 mls @ 0 mls/hr 03/18/18 11:22 Dextrose 5% In Water 1000 Ml IV .Q0M PRN Hypoglycemia Protocol Protocol Per Protocol NOREPINEPHRINE BIT/0.9 % NACL 4 mg in 250 mls @ 15 mls/hr 03/18/18 13:04 09:56 Levophed 4 Mg/ 250 Ml Ns Premixed IV 17 mcg/min .[id number] PRN 63.75 mls/hr TITRATE PER MD ORDER Titration Protocol 4 MCG/MIN Propofol 1,000 mg in 100 mls @ 1.817 mls/hr 03/18/18 14:23 03/19/18 09:25 Diprivan IV 0 mcg/kg/min .Q24H PRN 0 mls/hr TITRATE PER MD ORDER Titration Protocol 5 MCG/KG/MIN Aztreonam 100 mls @ 100 mls/hr 03/18/18 14:30 03/20/18 14:11 Azactam 1 Gm IVPB 03/23/18 14:31 100 mls/hr Q8 GABE Administration Protocol Amiodarone HCl/Dextrose 360 mg in 200 mls @ 16.667 mls/hr 03/18/18 20:15 07:33 Nexterone 360 Mg In D5w 200 Ml (Premix) IV 16.667 mls/hr .Q12H GABE Administration Protocol 0.5 MG/MIN Linezolid 600 mg in 300 mls @ 200 mls/hr 03/18/18 22:00 03/20/18 09:26 Zyvox 600mg/300ml D5w IVPB 03/25/18 22:01 200 mls/hr Q12 GABE Administration Protocol Dextrose/Sodium Chloride 1,000 mls @ 100 mls/hr 03/19/18 01:45 03/20/18 09:52 Dextrose 5%/0.45% Ns 1000 Ml IV 100 mls/hr .Q10H GABE Administration Phenylephrine HCl 40 mg/ 254 mls @ 38.1 mls/hr 03/19/18 07:41 Sodium Chloride IV .Q6H40M PRN TITRATE PER MD ORDER Protocol 100 MCG/MIN Vasopressin 20 units/ Sodium 101 mls @ 9.09 mls/hr 03/19/18 07:45 03/20/18 05 :27 Chloride IV 9.09 mls/hr .Q11H7M GABE Administration Protocol 0.03 U/MIN Doxycycline Hyclate 100 mg/ 100 mls @ 100 mls/hr 03/19/18 12:45 03/20/18 09: 27 Sodium Chloride IVPB 100 mls/hr Q12 GABE Administration Protocol Insulin Detemir 10 unit 03/20/18 08:00 03/20/18 09:57 Levemir SC Not Given Q12 GABE Levalbuterol HCl 1.25 mg 03/19/18 08:00 03/20/18 13:01 Xopenex IH 1.25 mg [id number] GABE Administration Methylprednisolone 40 mg 03/20/18 10:00 03/20/18 09:27 Solu-Medrol IVP 40 mg Q12 GABE Administration Pantoprazole Sodium 40 mg 03/18/18 14:45 03/20/18 09:27 Protonix Inj IVP 40 mg DAILY GABE Administration - Patient Studies Lab Studies: Microbiology Studies 03/18/18 13:07 MRSA Culture (Admit) - Final Naris MRSA NOT DETECTED Lab Studies 03/20/18 03/20/18 03/20/18 Range/Units 08:14 06:20 06:00 WBC (4.5-11.0) 10^3/ul RBC (3.5-6.1) 10^6/uL Hgb (12.0-16.0) g/dL Hct (36.0-48.0) % MCV (80.0-105.0) fl MCH (25.0-35.0) pg MCHC (31.0-37.0) g/dl RDW (11.5-14.5) % Plt Count (120.0-450.0) 10^3/uL MPV (7.0-11.0) fl pCO2 37 (35-45) mm/Hg pO2 189.0 H (80-100) mm/Hg HCO3 27.6 (21-28) mmol/L ABG pH 7.48 H (7.35-7.45) ABG Total CO2 28.7 H (22-28) mmol.L ABG O2 Saturation 97.9 (95-98) % ABG O2 Content 16.5 (15-23) ML/dl ABG Base Excess 4.0 H (-2.0-3.0) mmol/L ABG Hemoglobin 11.7 (11.7-17.4) g/dL ABG Carboxyhemoglobin 0 L (0.5-1.5) % POC ABG HHb (Measured) 2.1 (0-5) % ABG Methemoglobin 0.2 (0.0-3.0) % ABG O2 Capacity 16.9 (16-24) mL/dl Hgb O2 Saturation 97.7 (95.0-98.0) % FiO2 80.0 % Sodium (132-148) mmol/L Potassium (3.6-5.0) mmol/L Chloride (98-107) mmol/L Carbon Dioxide (21-33) mmol/L Anion Gap (10-20) BUN (7-21) mg/dL Creatinine (0.7-1.2) mg/dl Est GFR ( Amer) Est GFR (Non-Af Amer) POC Glucose (mg/dL) 98 (65-110) mg/dL Random Glucose (70-110) mg/dL Calcium (8.4-10.5) mg/dL Magnesium 1.7 (1.7-2.2) mg/dL Total Bilirubin (0.2-1.3) mg/dL AST (14-36) U/L ALT (7-56) U/L Alkaline Phosphatase (38-126) U/L Total Protein (5.8-8.3) g/dL Albumin (3.0-4.8) g/dL Globulin gm/dL Albumin/Globulin Ratio (1.1-1.8) 03/20/18 03/20/18 03/20/18 Range/Units 06:00 06:00 03:51 WBC 20.4 H (4.5-11.0) 10^3/ul RBC 3.99 (3.5-6.1) 10^6/uL Hgb 11.6 L (12.0-16.0) g/dL Hct 35.1 L (36.0-48.0) % MCV 88.0 (80.0-105.0) fl MCH 29.1 (25.0-35.0) pg MCHC 33.0 (31.0-37.0) g/dl RDW 14.4 (11.5-14.5) % Plt Count 283 (120.0-450.0) 10^3/uL MPV 12.5 H (7.0-11.0) fl pCO2 (35-45) mm/Hg pO2 (80-100) mm/Hg HCO3 (21-28) mmol/L ABG pH (7.35-7.45) ABG Total CO2 (22-28) mmol.L ABG O2 Saturation (95-98) % ABG O2 Content (15-23) ML/dl ABG Base Excess (-2.0-3.0) mmol/L ABG Hemoglobin (11.7-17.4) g/dL ABG Carboxyhemoglobin (0.5-1.5) % POC ABG HHb (Measured) (0-5) % ABG Methemoglobin (0.0-3.0) % ABG O2 Capacity (16-24) mL/dl Hgb O2 Saturation (95.0-98.0) % FiO2 % Sodium 137 (132-148) mmol/L Potassium 3.4 L (3.6-5.0) mmol/L Chloride 102 (98-107) mmol/L Carbon Dioxide 27 (21-33) mmol/L Anion Gap 11 (10-20) BUN 24 H (7-21) mg/dL Creatinine 0.6 L (0.7-1.2) mg/dl Est GFR ( Amer) > 60 Est GFR (Non-Af Amer) > 60 POC Glucose (mg/dL) 122 H (65-110) mg/dL Random Glucose 136 H (70-110) mg/dL Calcium 7.6 L (8.4-10.5) mg/dL Magnesium (1.7-2.2) mg/dL Total Bilirubin 0.3 (0.2-1.3) mg/dL AST 1635 H (14-36) U/L ALT 1182 H (7-56) U/L Alkaline Phosphatase 115 (38-126) U/L Total Protein 5.0 L (5.8-8.3) g/dL Albumin 2.5 L (3.0-4.8) g/dL Globulin 2.5 gm/dL Albumin/Globulin Ratio 1.0 L (1.1-1.8) 03/20/18 03/20/18 03/19/18 Range/Units 01:20 00:28 20:17 WBC (4.5-11.0) 10^3/ul RBC (3.5-6.1) 10^6/uL Hgb (12.0-16.0) g/dL Hct (36.0-48.0) % MCV (80.0-105.0) fl MCH (25.0-35.0) pg MCHC (31.0-37.0) g/dl RDW (11.5-14.5) % Plt Count (120.0-450.0) 10^3/uL MPV (7.0-11.0) fl pCO2 (35-45) mm/Hg pO2 (80-100) mm/Hg HCO3 (21-28) mmol/L ABG pH (7.35-7.45) ABG Total CO2 (22-28) mmol.L ABG O2 Saturation (95-98) % ABG O2 Content (15-23) ML/dl ABG Base Excess (-2.0-3.0) mmol/L ABG Hemoglobin (11.7-17.4) g/dL ABG Carboxyhemoglobin (0.5-1.5) % POC ABG HHb (Measured) (0-5) % ABG Methemoglobin (0.0-3.0) % ABG O2 Capacity (16-24) mL/dl Hgb O2 Saturation (95.0-98.0) % FiO2 % Sodium 138 (132-148) mmol/L Potassium 3.5 L (3.6-5.0) mmol/L Chloride 102 (98-107) mmol/L Carbon Dioxide 28 (21-33) mmol/L Anion Gap 12 (10-20) BUN 26 H (7-21) mg/dL Creatinine 0.6 L (0.7-1.2) mg/dl Est GFR ( Amer) > 60 Est GFR (Non-Af Amer) > 60 POC Glucose (mg/dL) 124 H 97 (65-110) mg/dL Random Glucose 118 H (70-110) mg/dL Calcium 7.9 L (8.4-10.5) mg/dL Magnesium (1.7-2.2) mg/dL Total Bilirubin (0.2-1.3) mg/dL AST (14-36) U/L ALT (7-56) U/L Alkaline Phosphatase (38-126) U/L Total Protein (5.8-8.3) g/dL Albumin (3.0-4.8) g/dL Globulin gm/dL Albumin/Globulin Ratio (1.1-1.8) 03/19/18 Range/Units 15:57 WBC (4.5-11.0) 10^3/ul RBC (3.5-6.1) 10^6/uL Hgb (12.0-16.0) g/dL Hct (36.0-48.0) % MCV (80.0-105.0) fl MCH (25.0-35.0) pg MCHC (31.0-37.0) g/dl RDW (11.5-14.5) % Plt Count (120.0-450.0) 10^3/uL MPV (7.0-11.0) fl pCO2 (35-45) mm/Hg pO2 (80-100) mm/Hg HCO3 (21-28) mmol/L ABG pH (7.35-7.45) ABG Total CO2 (22-28) mmol.L ABG O2 Saturation (95-98) % ABG O2 Content (15-23) ML/dl ABG Base Excess (-2.0-3.0) mmol/L ABG Hemoglobin (11.7-17.4) g/dL ABG Carboxyhemoglobin (0.5-1.5) % POC ABG HHb (Measured) (0-5) % ABG Methemoglobin (0.0-3.0) % ABG O2 Capacity (16-24) mL/dl Hgb O2 Saturation (95.0-98.0) % FiO2 % Sodium (132-148) mmol/L Potassium (3.6-5.0) mmol/L Chloride (98-107) mmol/L Carbon Dioxide (21-33) mmol/L Anion Gap (10-20) BUN (7-21) mg/dL Creatinine (0.7-1.2) mg/dl Est GFR ( Amer) Est GFR (Non-Af Amer) POC Glucose (mg/dL) 81 (65-110) mg/dL Random Glucose (70-110) mg/dL Calcium (8.4-10.5) mg/dL Magnesium (1.7-2.2) mg/dL Total Bilirubin (0.2-1.3) mg/dL AST (14-36) U/L ALT (7-56) U/L Alkaline Phosphatase (38-126) U/L Total Protein (5.8-8.3) g/dL Albumin (3.0-4.8) g/dL Globulin gm/dL Albumin/Globulin Ratio (1.1-1.8) Laboratory Results - last 24 hr 03/19/18 03/19/18 03/20/18 15:57 20:17 00:28 WBC RBC Hgb Hct MCV MCH MCHC RDW Plt Count MPV pCO2 pO2 HCO3 ABG pH ABG Total CO2 ABG O2 Saturation ABG O2 Content ABG Base Excess ABG Hemoglobin ABG Carboxyhemoglobin POC ABG HHb (Measured) ABG Methemoglobin ABG O2 Capacity Hgb O2 Saturation FiO2 Sodium Potassium Chloride Carbon Dioxide Anion Gap BUN Creatinine Est GFR ( Amer) Est GFR (Non-Af Amer) POC Glucose (mg/dL) 81 97 124 H Random Glucose Calcium Magnesium Total Bilirubin AST ALT Alkaline Phosphatase Total Protein Albumin Globulin Albumin/Globulin Ratio 03/20/18 03/20/18 03/20/18 01:20 03:51 06:00 WBC RBC Hgb Hct MCV MCH MCHC RDW Plt Count MPV pCO2 pO2 HCO3 ABG pH ABG Total CO2 ABG O2 Saturation ABG O2 Content ABG Base Excess ABG Hemoglobin ABG Carboxyhemoglobin POC ABG HHb (Measured) ABG Methemoglobin ABG O2 Capacity Hgb O2 Saturation FiO2 Sodium 138 137 Potassium 3.5 L 3.4 L Chloride 102 102 Carbon Dioxide 28 27 Anion Gap 12 11 BUN 26 H 24 H Creatinine 0.6 L 0.6 L Est GFR ( Amer) > 60 > 60 Est GFR (Non-Af Amer) > 60 > 60 POC Glucose (mg/dL) 122 H Random Glucose 118 H 136 H Calcium 7.9 L 7.6 L Magnesium Total Bilirubin 0.3 AST 1635 H ALT 1182 H Alkaline Phosphatase 115 Total Protein 5.0 L Albumin 2.5 L Globulin 2.5 Albumin/Globulin Ratio 1.0 L 03/20/18 03/20/18 03/20/18 06:00 06:00 06:20 WBC 20.4 H RBC 3.99 Hgb 11.6 L Hct 35.1 L MCV 88.0 MCH 29.1 MCHC 33.0 RDW 14.4 Plt Count 283 MPV 12.5 H pCO2 37 pO2 189.0 H HCO3 27.6 ABG pH 7.48 H ABG Total CO2 28.7 H ABG O2 Saturation 97.9 ABG O2 Content 16.5 ABG Base Excess 4.0 H ABG Hemoglobin 11.7 ABG Carboxyhemoglobin 0 L POC ABG HHb (Measured) 2.1 ABG Methemoglobin 0.2 ABG O2 Capacity 16.9 Hgb O2 Saturation 97.7 FiO2 80.0 Sodium Potassium Chloride Carbon Dioxide Anion Gap BUN Creatinine Est GFR ( Amer) Est GFR (Non-Af Amer) POC Glucose (mg/dL) Random Glucose Calcium Magnesium 1.7 Total Bilirubin AST ALT Alkaline Phosphatase Total Protein Albumin Globulin Albumin/Globulin Ratio 03/20/18 08:14 WBC RBC Hgb Hct MCV MCH MCHC RDW Plt Count MPV pCO2 pO2 HCO3 ABG pH ABG Total CO2 ABG O2 Saturation ABG O2 Content ABG Base Excess ABG Hemoglobin ABG Carboxyhemoglobin POC ABG HHb (Measured) ABG Methemoglobin ABG O2 Capacity Hgb O2 Saturation FiO2 Sodium Potassium Chloride Carbon Dioxide Anion Gap BUN Creatinine Est GFR ( Amer) Est GFR (Non-Af Amer) POC Glucose (mg/dL) 98 Random Glucose Calcium Magnesium Total Bilirubin AST ALT Alkaline Phosphatase Total Protein Albumin Globulin Albumin/Globulin Ratio Addendum Addendum: 03/20/18 15:45 ICU Attending Addendum: Patient seen and examined. Case reviewed on round with housestaff. Agree with resident note above with the following additions/exceptions: 58F hx of severe COPD, DM, multiple sclerosis, myotonic dystrophy, hypothyroidism, and renal cancer presenting to the ED via EMS for respiratory distress intubated in the field subsequently went into cardiac arrest during CT scan (VT) now intubated, on pressors s/p hypothermic protocol. At this point, resume post-cardiac resuscitation care Reawarming phase Neurologically she is unresponsive, not requiring sedation. Cannot neuro- prognositicate until at least 72 hours. +gag reflex Abx as per ID , steroids solumedrol 40 q8h q6h fingersticks GI ppx protonix DVT ppx - hep Sq NPO Rest of care as noted above. Maurice Cook MD Business Analyst Consultant Critical care time : 35mins
[2018-03-20] MEDS ORDERED: Magnesium Sulfate 2 gm/50 ml 2 GM/50 ML BAG IVPB ONE (17:10)
--- NOTE | 2018-03-20 17:16 | CP.PCM.PN ---
Subjective - Date & Time of Evaluation Date of Evaluation: 03/20/18 Time of Evaluation: 17:14 - Subjective Subjective: RN notified me of sustained VT on patient. Shock was administered, which broke the patient out of the abnormal rhythm. Dr. Mcginnis was notified, who advised to replete electrolytes, namely Mg, K+ and Ca2+, and advised to start lidocaine gtt on patient with lidocaine bolus. Patient is hemodynamically stable at present, vitals are stable. Objective - Vital Signs/Intake and Output Vital Signs (last 24 hours): Temp Pulse Resp BP Pulse Ox 99.7 F H 60 18 83/41 L 100 03/20/18 16:00 03/20/18 16:21 03/19/18 10:00 03/20/18 16:00 03/20/18 16:00 Intake and Output: 03/20/18 03/20/18 06:59 18:59 Intake Total 2050 320 Output Total 600 Balance 1450 320 - Medications Medications: Current Medications Dextrose (Dextrose 50% Inj) 0 ml IV STAT PRN; Protocol PRN Reason: Hypoglycemia Protocol Heparin Sodium (Porcine) (Heparin) 5,000 units SC Q8 GABE PRN Reason: Protocol Last Admin: 03/20/18 14:11 Dose: 5,000 units Dextrose (Dextrose 5% In Water 1000 Ml) 1,000 mls @ 0 mls/hr IV .Q0M PRN; Protocol; Per Protocol PRN Reason: Hypoglycemia Protocol NOREPINEPHRINE BIT/0.9 % NACL (Levophed 4 Mg/ 250 Ml Ns Premixed) 4 mg in 250 mls @ 15 mls/hr IV .[id number] PRN; Protocol; 4 MCG/MIN PRN Reason: TITRATE PER MD ORDER Last Titration: 03/20/18 17:10 Dose: 0 mcg/min, 0 mls/hr Propofol (Diprivan) 1,000 mg in 100 mls @ 1.817 mls/hr IV .Q24H PRN; Protocol; 5 MCG/KG/MIN PRN Reason: TITRATE PER MD ORDER Last Titration: 03/19/18 09:25 Dose: 0 mcg/kg/min, 0 mls/hr Aztreonam (Azactam 1 Gm) 100 mls @ 100 mls/hr IVPB Q8 GABE PRN Reason: Protocol Stop: 03/23/18 14:31 Last Admin: 03/20/18 14:11 Dose: 100 mls/hr Amiodarone HCl/Dextrose (Nexterone 360 Mg In D5w 200 Ml (Premix)) 360 mg in 200 mls @ 16.667 mls/hr IV .Q12H GABE; 0.5 MG/MIN PRN Reason: Protocol Last Admin: 03/20/18 07:33 Dose: 16.667 mls/hr Linezolid (Zyvox 600mg/300ml D5w) 600 mg in 300 mls @ 200 mls/hr IVPB Q12 GABE PRN Reason: Protocol Stop: 03/25/18 22:01 Last Admin: 03/20/18 09:26 Dose: 200 mls/hr Dextrose/Sodium Chloride (Dextrose 5%/0.45% Ns 1000 Ml) 1,000 mls @ 100 mls/hr IV .Q10H GABE Last Admin: 03/20/18 09:52 Dose: 100 mls/hr Phenylephrine HCl 40 mg/ (Sodium Chloride) 254 mls @ 38.1 mls/hr IV .Q6H40M PRN ; Protocol; 100 MCG/MIN PRN Reason: TITRATE PER MD ORDER Last Admin: 03/20/18 16:24 Dose: 100 mcg/min, 38.1 mls/hr Vasopressin 20 units/ Sodium (Chloride) 101 mls @ 9.09 mls/hr IV .Q11H7M GABE; 0.03 U/MIN PRN Reason: Protocol Last Admin: 03/20/18 05:27 Dose: 9.09 mls/hr Doxycycline Hyclate 100 mg/ (Sodium Chloride) 100 mls @ 100 mls/hr IVPB Q12 GABE PRN Reason: Protocol Last Admin: 03/20/18 09:27 Dose: 100 mls/hr Lidocaine HCl/Dextrose (Lidocaine 2 Grams In D5w) 2,000 mg in 500 mls @ 15 mls/ hr IV .Q24H PRN; Protocol; 1 MG/MIN PRN Reason: TITRATE PER MD ORDER Magnesium Sulfate (Magnesium Sulfate 2 Gm/50 Ml Water) 2 gm in 50 mls @ 50 mls/ hr IVPB ONCE ONE Stop: 03/20/18 18:09 Potassium Chloride (Potassium Chloride 20 Meq/100 Ml) 20 meq in 100 mls @ 50 mls/hr IVPB Q2H GABE Stop: 03/20/18 21:14 Insulin Detemir (Levemir) 10 unit SC Q12 [facility] Last Admin: 03/20/18 09:57 Dose: Not Given Levalbuterol HCl (Xopenex) 1.25 mg IH [id number] [facility] Last Admin: 03/20/18 13:01 Dose: 1.25 mg Methylprednisolone (Solu-Medrol) 40 mg IVP Q12 [facility] Last Admin: 03/20/18 09:27 Dose: 40 mg Pantoprazole Sodium (Protonix Inj) 40 mg IVP DAILY [facility] Last Admin: 03/20/18 09:27 Dose: 40 mg - Labs Labs: 03/20/18 06:00 03/20/18 06:00 PT 13.1 SECONDS (9.4-12.5) H 03/18/18 10:15 INR 1.14 03/18/18 10:15 APTT 23.7 Seconds (25.1-36.5) L 03/18/18 10:15
[2018-03-20] MEDS: Lidocaine 2 Grams in D5W 2,000 MG/500 ML BAG IV PRN (17:29)
--- NOTE | 2018-03-20 17:45 | CARD ---
APPROVED REPORT Date of service: 03/20/2018 EKG Measurement Heart [id number] SD 136P [id number] <Conclusion> Sinus rhythm with frequent premature ventricular complexes in a pattern of bigeminy Low voltage QRS Anterolateral infarct, age undetermined ST-T Changes. Abnormal ECG
--- NOTE | 2018-03-20 20:10 | CON ---
Copied To: Britton Watts MD Attending MD: Britton Watts MD DATE: 03/20/2018 NEUROLOGY CONSULTATION CHIEF COMPLAINT: Altered mental status. 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 Patient had responsive circulation after 15 minutes. Overall prognosis is currently guarded. Patient will need a CAT scan of the head to see if there is any cerebral edema. She withdraws to localized noxious stimulus but does not respond to verbal commands, drowsy. She is on pressors to keep her systolic blood pressures since she has low blood pressures status post cardiac arrest. She is currently hypoperfusing to the brain in addition has waxing and waning hyperglycemic acceleration as Endocrinology is on board for glucose management. PAST MEDICAL HISTORY: As above. SOCIAL HISTORY: No illicit drug use, smoking or EtOH abuse. REVIEW OF SYSTEMS: A 14-point review of systems is difficult to obtain due to patient's altered mental status. FAMILY HISTORY: Noncontributory. ALLERGIES: PENICILLIN. MEDICATIONS: Reviewed by nurses' reconciliation sheet. LABORATORY DATA: Sodium is 137, potassium 3.4, chloride 102, carbon dioxide 27, BUN of 24, creatinine 0.6, random glucose 136. PHYSICAL EXAMINATION: GENERAL: Patient is intubated, not on any sedation. VITAL SIGNS: Temperature 99.7, pulse rate of 60, blood pressure . HEENT: Atraumatic and normocephalic. PERRLA. Extraocular muscles intact. NECK: Supple. No JVD, no adenopathy. LUNGS: Decreased breath sounds bilaterally. HEART: S1, S2. Normal rate and rhythm. No murmurs, rubs or gallops. ABDOMEN: Soft, nontender and nondistended. Bowel sounds are present. EXTREMITIES: No clubbing. No cyanosis. Peripheral pulses 2+ felt bilaterally. NEUROLOGIC: Patient is intubated, not on any sedation. Does not open the eyes to voice command. Brainstem reflex is intact. Corneals mild bilaterally has mild Doll's eye effect and positive gag. Motor exam: Minimal spontaneous movements of extremities. Sensory exam: Withdraws on localized and noxious stimulus in lower extremities, but not Doppler. DTRs are 1+ throughout. Coordination and gait deferred for now. ASSESSMENT AND PLAN: This is a 58-year-old woman with past medical history of chronic respiratory insufficiency, severe chronic obstructive pulmonary disease, diabetes, multiple sclerosis, myotonic dystrophy, hypothyroidism, renal cell carcinoma, status post therapy presented to the ICU for management of acute hypoxic respiratory failure requiring ventilator, complicated by cardiopulmonary arrest and sepsis, likely secondary to underlying cardiac arrest as well as urinary tract infection, spontaneous circulation response is 15 minutes, she is called for altered mental status. Altered mental status is multifactorial secondary to toxic metabolic encephalopathy superimposed underlying hypoxic ischemic encephalopathy in addition to transient cerebral hypoperfusion to the brain. At this time, recommend; 1. Avoid any sedative medicine. 2. Keep systolic blood pressures between 130s-140s and diastolic 70s-80s with pressors. 3. Monitor electrolytes and correct accordingly. 4. Continue with prophylactic antibiotics. 5. CAT scan of the head to assess for cerebral edema. 6. EEG shows delta activity throughout recording consistent with severe bilateral cerebral dysfunction. No evidence of any epileptiform activity. Continue current present ICU management. Thank you for this consult. Britton Watts MD
[2018-03-21] MEDS: Levalbuterol 1.25 MG/3 ML Inhal Soln UD IH SCH ×4 (01:30→19:53)
[2018-03-21] MEDS: Aztreonam 1 Gm in NS 100mL 100 ML IVPB SCH (05:39)
[2018-03-21 06:00] LABS: ARTERIAL BLOOD GAS HCO3 19.5 mmol/L (21-28); ARTERIAL BLOOD GAS HEMOGLOBIN 10.9 g/dL (11.7-17.4); ARTERIAL BLOOD GAS O2 CAPACITY 15.6 mL/dl (16-24); ARTERIAL BLOOD GAS O2 CONTENT 15.3 ML/dl (15-23); ARTERIAL BLOOD GAS O2 SAT 98.1 % (95-98); ARTERIAL BLOOD GAS PCO2 25 mm/Hg (35-45); ARTERIAL BLOOD GAS TCO2 20.3 mmol.L (22-28)
[2018-03-21 06:26] LABS: MEAN CELL VOLUME 85.6 fl (80.0-105.0); MEAN CORPUSCULAR HEMOGLOBIN 28.7 pg (25.0-35.0); MEAN CORPUSCULAR HGB CONC 33.5 g/dl (31.0-37.0); RBC 3.83 10^6/uL (3.5-6.1); RED CELL DISTRIBUTION WIDTH 14.7 % (11.5-14.5); WHITE BLOOD COUNT 17.1 10^3/ul (4.5-11.0)
[2018-03-21 07:16] LABS: ALB/GLOB RATIO 0.9 (1.1-1.8); ALBUMIN 2.5 g/dL (3.0-4.8); ALT/SGPT 780 U/L (7-56); AST/SGOT 814 U/L (14-36); BLOOD UREA NITROGEN 16 mg/dL (7-21); CALCIUM 7.8 mg/dL (8.4-10.5); GFR AFRICAN-AMERICAN > 60; GFR NON-AFRICAN AMERICAN > 60
--- NOTE | 2018-03-21 07:58 | PN ---
Copied To: Adam Leyva MD Attending MD: Adam Leyva MD DATE: 03/21/2018([id number]) PULMONARY NOTE SUBJECTIVE: The patient remains on the ventilator. She remains lethargic. She is not sedated - discussed with nurse. PHYSICAL EXAMINATION: VITAL SIGNS: Temperature is 100.1, pulse is 61, respiratory rate is 24/16, blood pressure 125/66. HEENT: Normocephalic, atraumatic. No JVD. CARDIOVASCULAR: Positive S1, S2. No S3 gallop. LUNGS: Decreased breath sounds at the bases. Minimal bilateral rhonchi. No wheezing. EXTREMITIES: Mild edema. No cyanosis or clubbing. GI: Abdomen is soft, nondistended. Bowel sounds are positive. SKIN: No acute rash. NEUROLOGIC: Limited at the present time. PERTINENT LABORATORY DATA: Chest x-ray was done this morning and reviewed. There are minimal infiltrates noted at the right base on today's film. Official results are pending. Arterial blood gas was done on PRVC 16, tidal volume 400, FIO2 of 60%. Results are: PH 7.5, pCO2 of 25, pO2 of 182. IMPRESSION: 1. Recurrent respiratory failure. 2. Chronic respiratory insufficiency. 3. Advanced myotonic dystrophy. 4. Chronic obstructive pulmonary disease. 5. Mild bronchospasm. 6. Probable urosepsis. 7. Rule out pneumonia - right base. PLAN: The patient remains on the ventilator. She remains lethargic. She is not sedated - discussed with nurse. I did discuss the case with the nurse at length. The nurse stated that the patient did have a short run of ventricular tachycardia during her shift. Medications have been adjusted by the ICU team. I did review the chest x-ray as above. There is now a minimal infiltrate noted at the right base. I have also reviewed the arterial blood gas. The arterial blood gas now reveals a respiratory alkalosis with a decrease in the alveolar-arterial gradient. We can certainly decrease the minute ventilation, as well as the FIO2 at this point in time. I will discuss these measures with the ICU team later this morning. I would continue with the antibiotic coverage as per Infectious Disease. Input by Dr. Glynn is noted. Inputs by Cardiology and Neurology are also noted. The patient remains critically ill with overall poor prognosis. However, she is not hypothermic at this point in time. In addition, her blood pressure appears more stable. I will discuss the above with the entire ICU team in the next few moments. I will also discuss the above with Dr. Contreras later this morning. Adam Leyva MD MTDAminata
[2018-03-21] MEDS: Amiodarone 360 mg/D5W 200 ml 360 MG/200 ML BAG IV SCH ×2 (08:53→21:04)
--- NOTE | 2018-03-21 08:56 | CP.PCM.PN ---
Subjective - Date & Time of Evaluation Date of Evaluation: 03/21/18 Time of Evaluation: 07:00 - Subjective Subjective: Endocrinology progress note: Patient seen and examined at bedside. Patient is intubated and on two pressors, on amio and lidocaine drip for vtach. Not sedated. 12 Point ROS limited 2/2 intubation. Objective - Vital Signs/Intake and Output Vital Signs (last 24 hours): Temp Pulse Resp BP Pulse Ox 100.1 F H 61 8 L 129/55 L 99 03/21/18 04:00 03/21/18 06:00 03/21/18 01:00 03/21/18 07:34 03/21/18 05:00 Intake and Output: 03/21/18 03/21/18 06:59 18:59 Intake Total 3246 76 Output Total 1400 Balance 1846 76 - Medications Medications: Current Medications Dextrose (Dextrose 50% Inj) 0 ml IV STAT PRN; Protocol PRN Reason: Hypoglycemia Protocol Heparin Sodium (Porcine) (Heparin) 5,000 units SC Q8 GABE PRN Reason: Protocol Last Admin: 03/21/18 05:39 Dose: 5,000 units Dextrose (Dextrose 5% In Water 1000 Ml) 1,000 mls @ 0 mls/hr IV .Q0M PRN; Protocol; Per Protocol PRN Reason: Hypoglycemia Protocol NOREPINEPHRINE BIT/0.9 % NACL (Levophed 4 Mg/ 250 Ml Ns Premixed) 4 mg in 250 mls @ 15 mls/hr IV .[id number] PRN; Protocol; 4 MCG/MIN PRN Reason: TITRATE PER MD ORDER Last Titration: 03/20/18 17:10 Dose: 0 mcg/min, 0 mls/hr Propofol (Diprivan) 1,000 mg in 100 mls @ 1.817 mls/hr IV .Q24H PRN; Protocol; 5 MCG/KG/MIN PRN Reason: TITRATE PER MD ORDER Last Titration: 03/19/18 09:25 Dose: 0 mcg/kg/min, 0 mls/hr Aztreonam (Azactam 1 Gm) 100 mls @ 100 mls/hr IVPB Q8 GABE PRN Reason: Protocol Stop: 03/23/18 14:31 Last Admin: 03/21/18 05:39 Dose: 100 mls/hr Amiodarone HCl/Dextrose (Nexterone 360 Mg In D5w 200 Ml (Premix)) 360 mg in 200 mls @ 16.667 mls/hr IV .Q12H GABE; 0.5 MG/MIN PRN Reason: Protocol Last Admin: 03/20/18 21:41 Dose: 16.667 mls/hr Linezolid (Zyvox 600mg/300ml D5w) 600 mg in 300 mls @ 200 mls/hr IVPB Q12 [facility] PRN Reason: Protocol Stop: 03/25/18 22:01 Last Admin: 03/20/18 21:55 Dose: 200 mls/hr Dextrose/Sodium Chloride (Dextrose 5%/0.45% Ns 1000 Ml) 1,000 mls @ 100 mls/hr IV .Q10H [facility] Last Admin: 03/20/18 21:52 Dose: 100 mls/hr Phenylephrine HCl 40 mg/ (Sodium Chloride) 254 mls @ 38.1 mls/hr IV .Q6H40M PRN ; Protocol; 100 MCG/MIN PRN Reason: TITRATE PER MD ORDER Last Titration: 03/21/18 07:13 Dose: 90 mcg/min, 34.29 mls/hr Vasopressin 20 units/ Sodium (Chloride) 101 mls @ 9.09 mls/hr IV .Q11H7M GABE; 0.03 U/MIN PRN Reason: Protocol Last Admin: 03/21/18 07:34 Dose: 9.09 mls/hr Doxycycline Hyclate 100 mg/ (Sodium Chloride) 100 mls @ 100 mls/hr IVPB Q12 GABE PRN Reason: Protocol Last Admin: 03/20/18 21:54 Dose: 100 mls/hr Lidocaine HCl/Dextrose (Lidocaine 2 Grams In D5w) 2,000 mg in 500 mls @ 15 mls/ hr IV .Q24H PRN; Protocol; 1 MG/MIN PRN Reason: TITRATE PER MD ORDER Last Admin: 03/20/18 17:29 Dose: 1 mg/min, 15 mls/hr Insulin Detemir (Levemir) 10 unit SC Q12 [facility] Last Admin: 03/20/18 21:51 Dose: 10 unit Levalbuterol HCl (Xopenex) 1.25 mg IH [id number] [id number] Last Admin: 03/21/18 07:26 Dose: 1.25 mg Methylprednisolone (Solu-Medrol) 40 mg IVP Q12 [facility] Last Admin: 03/20/18 22:30 Dose: 40 mg Pantoprazole Sodium (Protonix Inj) 40 mg IVP DAILY [facility] Last Admin: 03/20/18 09:27 Dose: 40 mg - Labs Labs: 03/21/18 05:50 03/21/18 05:50 PT 13.1 SECONDS (9.4-12.5) H 03/18/18 10:15 INR 1.14 03/18/18 10:15 APTT 23.7 Seconds (25.1-36.5) L 03/18/18 10:15 - Constitutional Appears: No Acute Distress - Head Exam Head Exam: ATRAUMATIC - ENT Exam ENT Exam: Mucous Membranes Moist - Respiratory Exam Respiratory Exam: Clear to Ausculation Bilateral, Rhonchi - Cardiovascular Exam Cardiovascular Exam: RRR, +S1, +S2 - GI/Abdominal Exam GI & Abdominal Exam: Soft. absent: Tenderness - Extremities Exam Extremities Exam: Pedal Edema Additional comments: 2+ - Skin Skin Exam: Intact, Warm Assessment and Plan - Assessment and Plan (Free Text) Assessment: 58-year-old female with uncontrolled and decompensated type II insulin requiring diabetes, myotonic dystrophy, COPD, and multiple sclerosis initially presented with shortness of breath and was intubated on the field, s/p cardiopulmonary arrest in the ED, currently on pressor support. Patient also presenting with marked hyperglycemic accelerations. Blood sugars ranging 155-243 Cont Levemir 10 units BID scheduled We will taper her basal dose as the steroids are decreased Replete electrolytes as needed Fingersticks Q4H and serial CMPs Continue care in the ICU Cont Antibiotics as per ID Case and plan discussed in detail with Dr De La Rosa. Trenton Nguyễn, PGY3
--- NOTE | 2018-03-21 09:02 | EEG ---
Copied To: Britton Watts MD Attending MD: Britton Watts MD DATE: 03/20/2018 CHIEF COMPLAINT: Status post cardiac arrest. CONDITION OF THE RECORDING: Sleep. DIAGNOSIS: Status post cardiac arrest, altered mental status. MEDICATIONS: Reviewed by nurse per reconciliation sheet. INTERPRETATION: This is a 16-channel international recording. The background activity of this tracing was composed of 4 to 5 cycles per second. There was very limited amount of beta activity of 16 to 20 cycles per second seen in this recording. There was increased amount of theta activity of 5 to 7 cycles per second seen in this tracing. There is delta wave slowing throughout the recording, and drowsiness was characterized by mostly theta activity. Sleep was characterized by minimal vertex transient waves, sleep spindles and bilateral slowing. Photic stimulation showed no changes in the tracing. No paroxysmal activities noted in this recording. CONCLUSION: Abnormal EEG due to presence of diffuse slowing consistent throughout the EEG consistent with severe bilateral cerebral dysfunction. No evidence of any epileptiform activity. Please clinically correlate. Britton Watts MD
[2018-03-21] MEDS: Dextrose 5%/0.45% NS 1,000 ML IV SCH ×2 (09:14→15:30)
--- NOTE | 2018-03-21 09:16 | CP.PCM.PN ---
<Vilma Licona - Last Filed: 03/21/18 09:13> Subjective - Date & Time of Evaluation Date of Evaluation: 03/21/18 Time of Evaluation: 08:00 - Subjective Subjective: GI Fellow PGY5 Progress Note Pt seen and examined at bedside, pt is unresponsive, still on pressor support. Per nursing pt went into VT s/p shock on IV lidocaine drip. +2BM overnight, no rectal bleeding. No NGT/OGT. ROS: A 12pt ROS was unable to be obtained due to AMS. Objective - Vital Signs/Intake and Output Vital Signs (last 24 hours): Temp Pulse Resp BP Pulse Ox 100.1 F H 61 8 L 129/55 L 99 03/21/18 04:00 03/21/18 06:00 03/21/18 01:00 03/21/18 07:34 03/21/18 05:00 Intake and Output: 03/21/18 03/21/18 06:59 18:59 Intake Total 3246 76 Output Total 1400 Balance 1846 76 - Medications Medications: Current Medications Dextrose (Dextrose 50% Inj) 0 ml IV STAT PRN; Protocol PRN Reason: Hypoglycemia Protocol Heparin Sodium (Porcine) (Heparin) 5,000 units SC Q8 GABE PRN Reason: Protocol Last Admin: 03/21/18 05:39 Dose: 5,000 units Dextrose (Dextrose 5% In Water 1000 Ml) 1,000 mls @ 0 mls/hr IV .Q0M PRN; Protocol; Per Protocol PRN Reason: Hypoglycemia Protocol NOREPINEPHRINE BIT/0.9 % NACL (Levophed 4 Mg/ 250 Ml Ns Premixed) 4 mg in 250 mls @ 15 mls/hr IV .[id number] PRN; Protocol; 4 MCG/MIN PRN Reason: TITRATE PER MD ORDER Last Titration: 03/20/18 17:10 Dose: 0 mcg/min, 0 mls/hr Propofol (Diprivan) 1,000 mg in 100 mls @ 1.817 mls/hr IV .Q24H PRN; Protocol; 5 MCG/KG/MIN PRN Reason: TITRATE PER MD ORDER Last Titration: 03/19/18 09:25 Dose: 0 mcg/kg/min, 0 mls/hr Aztreonam (Azactam 1 Gm) 100 mls @ 100 mls/hr IVPB Q8 GABE PRN Reason: Protocol Stop: 03/23/18 14:31 Last Admin: 03/21/18 05:39 Dose: 100 mls/hr Amiodarone HCl/Dextrose (Nexterone 360 Mg In D5w 200 Ml (Premix)) 360 mg in 200 mls @ 16.667 mls/hr IV .Q12H GABE; 0.5 MG/MIN PRN Reason: Protocol Last Admin: 03/21/18 08:53 Dose: 16.667 mls/hr Linezolid (Zyvox 600mg/300ml D5w) 600 mg in 300 mls @ 200 mls/hr IVPB Q12 GABE PRN Reason: Protocol Stop: 03/25/18 22:01 Last Admin: 03/20/18 21:55 Dose: 200 mls/hr Dextrose/Sodium Chloride (Dextrose 5%/0.45% Ns 1000 Ml) 1,000 mls @ 100 mls/hr IV .Q10H GABE Last Admin: 03/20/18 21:52 Dose: 100 mls/hr Phenylephrine HCl 40 mg/ (Sodium Chloride) 254 mls @ 38.1 mls/hr IV .Q6H40M PRN ; Protocol; 100 MCG/MIN PRN Reason: TITRATE PER MD ORDER Last Titration: 03/21/18 07:13 Dose: 90 mcg/min, 34.29 mls/hr Vasopressin 20 units/ Sodium (Chloride) 101 mls @ 9.09 mls/hr IV .Q11H7M GABE; 0.03 U/MIN PRN Reason: Protocol Last Admin: 03/21/18 07:34 Dose: 9.09 mls/hr Doxycycline Hyclate 100 mg/ (Sodium Chloride) 100 mls @ 100 mls/hr IVPB Q12 GABE PRN Reason: Protocol Last Admin: 03/20/18 21:54 Dose: 100 mls/hr Lidocaine HCl/Dextrose (Lidocaine 2 Grams In D5w) 2,000 mg in 500 mls @ 15 mls/ hr IV .Q24H PRN; Protocol; 1 MG/MIN PRN Reason: TITRATE PER MD ORDER Last Admin: 03/20/18 17:29 Dose: 1 mg/min, 15 mls/hr Insulin Detemir (Levemir) 10 unit SC Q12 GABE Last Admin: 03/20/18 21:51 Dose: 10 unit Levalbuterol HCl (Xopenex) 1.25 mg IH [id number] [facility] Last Admin: 03/21/18 07:26 Dose: 1.25 mg Methylprednisolone (Solu-Medrol) 40 mg IVP Q12 [facility] Last Admin: 03/20/18 22:30 Dose: 40 mg Pantoprazole Sodium (Protonix Inj) 40 mg IVP DAILY [facility] Last Admin: 03/20/18 09:27 Dose: 40 mg - Labs Labs: 03/21/18 05:50 03/21/18 05:50 PT 13.1 SECONDS (9.4-12.5) H 03/18/18 10:15 INR 1.14 03/18/18 10:15 APTT 23.7 Seconds (25.1-36.5) L 03/18/18 10:15 - Constitutional Appears: Toxic, In Acute Distress, Chronically Ill - Head Exam Head Exam: ATRAUMATIC, NORMAL INSPECTION, NORMOCEPHALIC - Eye Exam Eye Exam: PERRL - ENT Exam ENT Exam: Mucous Membranes Dry Additional comments: ett - Respiratory Exam Respiratory Exam: Decreased Breath Sounds, Respiratory Distress - Cardiovascular Exam Cardiovascular Exam: Tachycardia - GI/Abdominal Exam GI & Abdominal Exam: Soft, Normal Bowel Sounds. absent: Distended, Firm, Guarding, Rigid, Tenderness, Organomegaly - Extremities Exam Extremities Exam: Pedal Edema - Skin Skin Exam: Dry, Intact, Pallor, Warm Assessment and Plan - Assessment and Plan (Free Text) Assessment: This is a 58yF presenting with SOB. 1. Hypoxic respiratory failure 2. VDF 3. Cardiac arrest with ROSC 4. Ventricular Tachycardia 5. Shock 6. Elevated LFTs 7. Hyperglycemia Plan: -Continue supportive care -Pt critically ill, hypotensive on 2 Pressors -Elevated LFTs from shock liver s/p cardiac arrest and persistent hypotension -LFTs are trending down from initial elevated 03/18 -Hepatitis panel negative -Monitor LFTs daily, INR wnl, plt wnl, not in liver failure -Pt is also on many hepatotoxic drugs like amiodarone and doxycycline -Abd US Doppler to evaluate portal vein patency pending -PLease call with nay questions or concerns <Mekhi Parikh Y - Last Filed: 03/21/18 12:53> Objective - Vital Signs/Intake and Output Vital Signs (last 24 hours): Temp Pulse Resp BP Pulse Ox 100.1 F H 61 8 L 129/55 L 99 03/21/18 04:00 03/21/18 06:00 03/21/18 01:00 03/21/18 07:34 03/21/18 05:00 Intake and Output: 03/21/18 03/21/18 06:59 18:59 Intake Total 3246 76 Output Total 1400 Balance 1846 76 - Medications Medications: Current Medications Dextrose (Dextrose 50% Inj) 0 ml IV STAT PRN; Protocol PRN Reason: Hypoglycemia Protocol Heparin Sodium (Porcine) (Heparin) 5,000 units SC Q8 GAEB PRN Reason: Protocol Last Admin: 03/21/18 05:39 Dose: 5,000 units Dextrose (Dextrose 5% In Water 1000 Ml) 1,000 mls @ 0 mls/hr IV .Q0M PRN; Protocol; Per Protocol PRN Reason: Hypoglycemia Protocol Propofol (Diprivan) 1,000 mg in 100 mls @ 1.817 mls/hr IV .Q24H PRN; Protocol; 5 MCG/KG/MIN PRN Reason: TITRATE PER MD ORDER Last Titration: 03/19/18 09:25 Dose: 0 mcg/kg/min, 0 mls/hr Aztreonam (Azactam 1 Gm) 100 mls @ 100 mls/hr IVPB Q8 GABE PRN Reason: Protocol Stop: 03/23/18 14:31 Last Admin: 03/21/18 05:39 Dose: 100 mls/hr Amiodarone HCl/Dextrose (Nexterone 360 Mg In D5w 200 Ml (Premix)) 360 mg in 200 mls @ 16.667 mls/hr IV .Q12H GABE; 0.5 MG/MIN PRN Reason: Protocol Last Admin: 03/21/18 08:53 Dose: 16.667 mls/hr Linezolid (Zyvox 600mg/300ml D5w) 600 mg in 300 mls @ 200 mls/hr IVPB Q12 GABE PRN Reason: Protocol Stop: 03/25/18 22:01 Last Admin: 03/21/18 09:30 Dose: 200 mls/hr Phenylephrine HCl 40 mg/ (Sodium Chloride) 254 mls @ 38.1 mls/hr IV .Q6H40M PRN ; Protocol; 100 MCG/MIN PRN Reason: TITRATE PER MD ORDER Last Titration: 03/21/18 07:13 Dose: 90 mcg/min, 34.29 mls/hr Doxycycline Hyclate 100 mg/ (Sodium Chloride) 100 mls @ 100 mls/hr IVPB Q12 GABE PRN Reason: Protocol Last Admin: 03/21/18 09:31 Dose: 100 mls/hr Lidocaine HCl/Dextrose (Lidocaine 2 Grams In D5w) 2,000 mg in 500 mls @ 15 mls/ hr IV .Q24H PRN; Protocol; 1 MG/MIN PRN Reason: TITRATE PER MD ORDER Last Admin: 03/20/18 17:29 Dose: 1 mg/min, 15 mls/hr Dextrose/Sodium Chloride (Dextrose 5%/0.45% Ns 1000 Ml) 1,000 mls @ 50 mls/hr IV .Q20H [facility] Insulin Detemir (Levemir) 20 unit SC Q12 [facility] Levalbuterol HCl (Xopenex) 1.25 mg IH [id number] [facility] Last Admin: 03/21/18 07:26 Dose: 1.25 mg Methylprednisolone (Solu-Medrol) 40 mg IVP Q12 [facility] Last Admin: 03/21/18 09:28 Dose: 40 mg Pantoprazole Sodium (Protonix Inj) 40 mg IVP DAILY [facility] Last Admin: 03/21/18 09:24 Dose: 40 mg - Labs Labs: 03/21/18 05:50 03/21/18 05:50 PT 13.1 SECONDS (9.4-12.5) H 03/18/18 10:15 INR 1.14 03/18/18 10:15 APTT 23.7 Seconds (25.1-36.5) L 03/18/18 10:15 Attending/Attestation - Attestation I have personally seen and examined this patient.: Yes I have fully participated in the care of the patient.: Yes I have reviewed all pertinent clinical information, including history, physical exam and plan: Yes Notes (Text): 03/21/18 12:49 I have seen and examined patient with GI fellow. Acute cardiac events overnight noted. She remains intubated and sedated in intensive care unit. Review of vitals from today shows low grade temperature, tachycardia. COPD, respiratory failure s/p intubation Cardiac arrest, shock Sepsis Transaminitis - likely secondary to ischemia - Awaiting results of abdominal US with doppler - Vasopressor and ventilator management as per critical care team - LFTs continue to trend down, monitor and avoid hepatotoxic therapy if possible - Continue with antibiotic therapy - Prognosis remains guarded, will continue to monitor patient clinical course
[2018-03-21] MEDS: MethylPREDNISolone 40 mg Vial IVP SCH ×2 (09:28→22:04)
[2018-03-21] MEDS: Insulin Detemir 100 units/ml Vial (Levemir) SC SCH ×3 (09:29→22:29)
[2018-03-21] MEDS: Linezolid 600 mg in D5W 300 ml 600 MG/300 ML BAG IVPB SCH ×2 (09:30→22:03)
--- NOTE | 2018-03-21 09:38 | RAD ---
Date of service: 03/21/2018 HISTORY: f/u COMPARISON: 03/20/2018 FINDINGS: LUNGS: There is a new patchy infiltrate in the right lower lobe. The left lung is clear PLEURA: No significant pleural effusion identified, no pneumothorax apparent. CARDIOVASCULAR: Normal. OSSEOUS STRUCTURES: No significant abnormalities. VISUALIZED UPPER ABDOMEN: Normal. OTHER FINDINGS: Endotracheal tube and right internal jugular line are unchanged IMPRESSION: There is a new patchy infiltrate in the right lower lobe. The left lung is clear
--- NOTE | 2018-03-21 09:55 | CP.PCM.CON ---
History of Present Illness - History of Present Illness History of Present Illness: Palliative consult requested by Dr Luda Contreras Reason: Goals of care 58 year old female with history of advanced COPD, multiple sclerosis and myotonic dystrophy who presented to ED on 03/18/18 in respiratory distress. Of note, her blood glucose was found to be in 400's. Upon arrival her respiratory status declined and she became unresponsive. Code blue was called > ACLS> ROSC was achieved within 15 minutes. She is s/p hypothermia protocol. She remains intubated on vasopressors and amiodarone and lidocaine drip. PMHx: HTN, DM, Myotonic dystrophy, multiple sclerosis, hypothyroidism, rectal cell carcinoma s/p resection and chemotherapy. Social History: Never smoker, no alcohol, or drug use. Lived independently Family History: Sister with myotonic dystrophy who is Advance Care Planning: The patient does not have an Advanced Directive. Review of Systems: As per HPI, intubated /altered unable to obtain Past Patient History - Infectious Disease Hx of Infectious Diseases: None - Tetanus Immunizations Tetanus Immunization: Unknown - Past Social History Smoking Status: Never Smoked - CARDIAC Hx Hypertension: No - PULMONARY Hx Chronic Obstructive Pulmonary Disease (COPD): Yes - NEUROLOGICAL Hx Neurological Disorder: No - HEENT Hx HEENT Problems: Yes (pt stated "I need glasses") Hx Cataracts: Yes (bilateral cataract surgery) Other/Comment: removal of macular pocket of right eye/ jaw sx - RENAL Hx Chronic Kidney Disease: No - ENDOCRINE/METABOLIC Hx Diabetes Mellitus Type 2: Yes Hx Hypothyroidism: Yes - HEMATOLOGICAL/ONCOLOGICAL Hx Blood Disorders: Yes Hx Anemia: Yes (blood transfusion) Hx Cancer: Yes (rectal 2012) Hx Chemotherapy: Yes - INTEGUMENTARY Hx Dermatological Problems: No Hx Basil Cell: No Hx Eczema: No Hx Melanoma: No Hx Psoriasis: No Hx Squamous Cell: No Other/Comment: dry skin to feet, multiple surgical scars to abd, multiple small brown skin discoloratins to ble, slight red blanchable dry skin to buttocks, crooked great toes, multiple healed abd surgical scars - MUSCULOSKELETAL/RHEUMATOLOGICAL Hx Falls: Yes (last fall 12/01/17) - GASTROINTESTINAL Hx Gastrointestinal Disorders: Yes (RECTAL CA WAS ON CHEMO,HAD SX,PEG IN AND OUT ) Hx Colostomy: Yes (with reversal) Hx Diverticulitis: Yes Hx Gall Bladder Disease: Yes Other/Comment: fatty liver, colorectal sx, lower gi bleed, peg tube in and out, gastrosotmy 2011, colonoscopy 04/13/15 diverticulosis, hemorrhoids, polyp - GENITOURINARY/GYNECOLOGICAL Hx Reproductive Disorders: No - PSYCHIATRIC Hx Depression: No Hx Emotional Abuse: No Hx Physical Abuse: No Hx Substance Use: No - SURGICAL HISTORY Hx Surgeries: Yes (colostomy reversal) Hx Cholecystectomy: Yes Hx Hysterectomy: Yes (2005) Other/Comment: anterior resection and ileostomy 2011, 10/07/2012 bleeding ileostomy. exp lap, dissection portion of small bowel, dissection of ileostomy - ANESTHESIA Hx Anesthesia Reactions: No Hx Malignant Hyperthermia: No Meds Allergies/Adverse Reactions: Allergies Allergy/AdvReac Type Severity Reaction Status Date / Time Penicillins Allergy Severe ANGIOEDEMA Verified 03/18/18 09:58 - Medications Medications: Current Medications Dextrose (Dextrose 50% Inj) 0 ml IV STAT PRN; Protocol PRN Reason: Hypoglycemia Protocol Heparin Sodium (Porcine) (Heparin) 5,000 units SC Q8 GABE PRN Reason: Protocol Last Admin: 03/21/18 05:39 Dose: 5,000 units Dextrose (Dextrose 5% In Water 1000 Ml) 1,000 mls @ 0 mls/hr IV .Q0M PRN; Protocol; Per Protocol PRN Reason: Hypoglycemia Protocol NOREPINEPHRINE BIT/0.9 % NACL (Levophed 4 Mg/ 250 Ml Ns Premixed) 4 mg in 250 mls @ 15 mls/hr IV .[id number] PRN; Protocol; 4 MCG/MIN PRN Reason: TITRATE PER MD ORDER Last Titration: 03/20/18 17:10 Dose: 0 mcg/min, 0 mls/hr Propofol (Diprivan) 1,000 mg in 100 mls @ 1.817 mls/hr IV .Q24H PRN; Protocol; 5 MCG/KG/MIN PRN Reason: TITRATE PER MD ORDER Last Titration: 03/19/18 09:25 Dose: 0 mcg/kg/min, 0 mls/hr Aztreonam (Azactam 1 Gm) 100 mls @ 100 mls/hr IVPB Q8 GABE PRN Reason: Protocol Stop: 03/23/18 14:31 Last Admin: 03/21/18 05:39 Dose: 100 mls/hr Amiodarone HCl/Dextrose (Nexterone 360 Mg In D5w 200 Ml (Premix)) 360 mg in 200 mls @ 16.667 mls/hr IV .Q12H GABE; 0.5 MG/MIN PRN Reason: Protocol Last Admin: 03/21/18 08:53 Dose: 16.667 mls/hr Linezolid (Zyvox 600mg/300ml D5w) 600 mg in 300 mls @ 200 mls/hr IVPB Q12 GABE PRN Reason: Protocol Stop: 03/25/18 22:01 Last Admin: 03/21/18 09:30 Dose: 200 mls/hr Phenylephrine HCl 40 mg/ (Sodium Chloride) 254 mls @ 38.1 mls/hr IV .Q6H40M PRN ; Protocol; 100 MCG/MIN PRN Reason: TITRATE PER MD ORDER Last Titration: 03/21/18 07:13 Dose: 90 mcg/min, 34.29 mls/hr Doxycycline Hyclate 100 mg/ (Sodium Chloride) 100 mls @ 100 mls/hr IVPB Q12 GABE PRN Reason: Protocol Last Admin: 03/21/18 09:31 Dose: 100 mls/hr Lidocaine HCl/Dextrose (Lidocaine 2 Grams In D5w) 2,000 mg in 500 mls @ 15 mls/ hr IV .Q24H PRN; Protocol; 1 MG/MIN PRN Reason: TITRATE PER MD ORDER Last Admin: 03/20/18 17:29 Dose: 1 mg/min, 15 mls/hr Dextrose/Sodium Chloride (Dextrose 5%/0.45% Ns 1000 Ml) 1,000 mls @ 50 mls/hr IV .Q20H [facility] Insulin Detemir (Levemir) 10 unit SC Q12 [facility] Last Admin: 03/21/18 09:29 Dose: 10 unit Levalbuterol HCl (Xopenex) 1.25 mg IH [id number] [facility] Last Admin: 03/21/18 07:26 Dose: 1.25 mg Methylprednisolone (Solu-Medrol) 40 mg IVP Q12 [facility] Last Admin: 03/21/18 09:28 Dose: 40 mg Pantoprazole Sodium (Protonix Inj) 40 mg IVP DAILY [facility] Last Admin: 03/21/18 09:24 Dose: 40 mg Physical Exam - Constitutional Appears: Chronically Ill - Head Exam Head Exam: NORMOCEPHALIC - Eye Exam Eye Exam: Normal appearance Additional comments: pupils sluggish - ENT Exam ENT Exam: Mucous Membranes Moist - Respiratory Exam Respiratory Exam: Decreased Breath Sounds - Cardiovascular Exam Cardiovascular Exam: +S1, +S2 - GI/Abdominal Exam GI & Abdominal Exam: Hypoactive Bowel Sounds, Soft - Skin Skin Exam: Dry, Pallor, Warm - Additional Findings Additional findings: Palliative performance scale rating 10% Results - Vital Signs Recent Vital Signs: Last Vital Signs Temp 100.1 F H 03/21/18 04:00 Pulse 61 03/21/18 06:00 Resp 8 L 03/21/18 01:00 BP 129/55 L 03/21/18 07:34 Pulse Ox 99 03/21/18 05:00 - Labs Result Diagrams: 03/21/18 05:50 03/21/18 05:50 Labs: Laboratory Results - last 24 hr 03/20/18 03/20/18 03/20/18 06:00 06:00 08:14 WBC RBC Hgb Hct MCV MCH MCHC RDW Plt Count MPV pCO2 pO2 HCO3 ABG pH ABG Total CO2 ABG O2 Saturation ABG O2 Content ABG Base Excess ABG Hemoglobin ABG Carboxyhemoglobin POC ABG HHb (Measured) ABG Methemoglobin ABG O2 Capacity Hgb O2 Saturation FiO2 Sodium Potassium Chloride Carbon Dioxide Anion Gap BUN Creatinine Est GFR ( Amer) Est GFR (Non-Af Amer) POC Glucose (mg/dL) 98 Random Glucose Calcium Magnesium 1.7 Total Bilirubin AST ALT Alkaline Phosphatase Total Protein Albumin Globulin Albumin/Globulin Ratio Procalcitonin 4.37 H 03/20/18 03/20/18 03/20/18 11:36 16:05 19:44 WBC RBC Hgb Hct MCV MCH MCHC RDW Plt Count MPV pCO2 pO2 HCO3 ABG pH ABG Total CO2 ABG O2 Saturation ABG O2 Content ABG Base Excess ABG Hemoglobin ABG Carboxyhemoglobin POC ABG HHb (Measured) ABG Methemoglobin ABG O2 Capacity Hgb O2 Saturation FiO2 Sodium Potassium Chloride Carbon Dioxide Anion Gap BUN Creatinine Est GFR ( Amer) Est GFR (Non-Af Amer) POC Glucose (mg/dL) 155 H 228 H 217 H Random Glucose Calcium Magnesium Total Bilirubin AST ALT Alkaline Phosphatase Total Protein Albumin Globulin Albumin/Globulin Ratio Procalcitonin 03/21/18 03/21/18 03/21/18 00:09 04:04 05:50 WBC 17.1 H RBC 3.83 Hgb 11.0 L Hct 32.8 L MCV 85.6 MCH 28.7 MCHC 33.5 RDW 14.7 H Plt Count 256 MPV 13.0 H pCO2 pO2 HCO3 ABG pH ABG Total CO2 ABG O2 Saturation ABG O2 Content ABG Base Excess ABG Hemoglobin ABG Carboxyhemoglobin POC ABG HHb (Measured) ABG Methemoglobin ABG O2 Capacity Hgb O2 Saturation FiO2 Sodium Potassium Chloride Carbon Dioxide Anion Gap BUN Creatinine Est GFR ( Amer) Est GFR (Non-Af Amer) POC Glucose (mg/dL) 207 H 243 H Random Glucose Calcium Magnesium Total Bilirubin AST ALT Alkaline Phosphatase Total Protein Albumin Globulin Albumin/Globulin Ratio Procalcitonin 03/21/18 03/21/18 03/21/18 05:50 05:54 08:30 WBC RBC Hgb Hct MCV MCH MCHC RDW Plt Count MPV pCO2 25 L pO2 182.0 H HCO3 19.5 L ABG pH 7.50 H ABG Total CO2 20.3 L ABG O2 Saturation 98.1 H ABG O2 Content 15.3 ABG Base Excess -2.5 L ABG Hemoglobin 10.9 L ABG Carboxyhemoglobin 0 L POC ABG HHb (Measured) 1.9 ABG Methemoglobin 0.7 ABG O2 Capacity 15.6 L Hgb O2 Saturation 97.4 FiO2 60.0 Sodium 130 L Potassium 3.6 Chloride 99 Carbon Dioxide 22 Anion Gap 12 BUN 16 Creatinine 0.6 L Est GFR ( Amer) > 60 Est GFR (Non-Af Amer) > 60 POC Glucose (mg/dL) 226 H Random Glucose 214 H Calcium 7.8 L Magnesium Total Bilirubin 0.3 AST 814 H D ALT 780 H Alkaline Phosphatase 139 H D Total Protein 5.2 L Albumin 2.5 L Globulin 2.7 Albumin/Globulin Ratio 0.9 L Procalcitonin Assessment & Plan - Assessment and Plan (Free Text) Assessment: 58 year old female with hsyto of advanced COPD, respiratory insufficiency, myotionic dystropy, MS, rectal cancer who is admitted with respiratory insufficiency and is s/p cardiopulmonary arrest, s/p hypothermia protocol. Patient had an episode V Tach last evening, shocked and lidocaine drip started. EEG showed diffuse slowing consistent throughout study which is consistent with severer bilateral cerebral dysfunction. CT of head pending I spoke with patient's next of kin, Odilia Thapa via phone. Odilia is aware of patients medical condition. She was actually present last evening when patient had episode of V TACH. Odilia also aware of patients poor prognosis. Lengthy discussion regarding goals of care ensued. Odilia states that patient had often expressed she would not want to live if dependent on machines and could not function independently. Resuscitation status discussed. Odilia expressed that she wants to make patient DNR. Odilia is aware that once DNR established, patient will not be resuscitated if heart stops. Odilia understands and wishes to proceed with making her cousin a DNR. Odilia also spoke with Dr. Herbert Almendarez via phone. Odilia affirmed that she wants to make her cousin DNR Time spent in discussion with family regarding goals of care and advance care planning 50 minutes Plan: Goals of care and advance care panning;DNR. Cardio: Mainatian MAP > 65, on Amiodarone and lidocaine drip, also on Vasopressin, phenylephrine and Levophed. Pulmonary: intubated, maintain SA02 >90%, monitor ABG's Sepsis: ID following, blood cultures neagtive, urine + for E Coli, on Doxycycline, Zyvox and Azactam. Neuro: EEG abnormal diffuse slowing consistent through out study, CT of head pending, neurology following
--- NOTE | 2018-03-21 10:18 | PN ---
Copied To: Tom Contreras DO Attending MD: Tom Contreras DO DATE: 03/21/2018 SUBJECTIVE: She had V-tach and was shocked early this morning. She is on a ventilator. MEDICATIONS: She is on Azactam, dextrose, Diprivan, doxycycline, heparin, Levemir, Levophed, Lidoderm, Nexterone, phenylephrine, Protonix, Solu-Medrol, Xopenex and Zyvox. PHYSICAL EXAMINATION: VITAL SIGNS: She has a 100.1 rectal temperature, 61 pulse, 129/55 blood pressure, 99% oxygen 60% O2 in the ventilator. HEENT: Head is atraumatic, normocephalic. HEART: Regular rate. LUNGS: Decreased breath sounds, but clear. ABDOMEN: Soft. EXTREMITIES: No edema. LABORATORY DATA: She is really in trouble. White count is down to 17.1, which is better; 11 hemoglobin; 32.8 hematocrit with 256 platelets. She has a 130 sodium, potassium 3.6, BUN 16, creatinine 0.6, GFR is greater than 60, sugar is 226, calcium is 7.8, total bili is 0.3, AST is 814, ALT is 780, alk phos 139, total protein is 5.2. Liver enzymes are improving. She had microbiology showing E. coli in the urine. ASSESSMENT AND PLAN: She is being seen by Palliative Care right now, Pulmonary, Neurology, Cardiology and hopefully she can pull out of this. We will continue with the aggressive treatment and care on Cyndi Aranda. Tom Contreras DO
--- NOTE | 2018-03-21 10:51 | CP.CCUPN ---
<Major Almendarez - Last Filed: 03/21/18 10:54> CCU Subjective - Physician Review Events Since Last Encounter (Free Text): Major Almendarez, PGY-1 ICU Progress Note Patient seen and examined at bedside this morning. She went into Vtach yesterday evening, shock was administered with subsequent termination of Vtach. Per cardiology, given lidocaine bolus and lidocaine drip. Stopped vassopresin today. Limited ROS due to nonresponsive state. I spoke with Odilia Merchant, cousin, who agrees with DNR. Palliative care spoke with Odilia earlier today and agreed with DNR as well. Possible terminal extubation tomorrow. CCU Objective - Vital Signs / Intake & Output Vital Signs (Last 4 hours): Vital Signs BP 03/21/18 07:34 129/55 L Intake and Output (Last 8hrs): Intake & Output 03/20/18 03/21/18 03/21/18 22:59 06:59 14:59 Intake Total 3310 3246 76 Output Total 340 1400 Balance 2970 1846 76 Intake: IV 3310 3246 76 Left Antecubital 0 Left Forearm 0 Right Femoral 0 Right Internal Jugular 3120 2430 amioderone 200 insulin 0 levophed 0 vasopressin 108 Oral 0 Tube Feeding 0 Output: Urine 340 1400 Urethral (Carrera) 340 1400 Other: # Bowel Movements 3 - Physical Exam Head: Positive for: Atraumatic Pupils: Positive for: PERRL, Sluggish Mouth: Positive for: Dry Nose (Internal): Positive for: Normal Inspection Respiratory/Chest: Positive for: Clear to Auscultation. Negative for: Wheezes Cardiovascular: Positive for: Normal S1, S2, Peripheal Pulses Present Abdomen: Negative for: Distention, Guarding Upper Extremity: Positive for: Normal Inspection, NORMAL PULSES Lower Extremity: Positive for: Normal Inspection, NORMAL PULSES Neurological: Positive for: Other (unarousable and non responsive) Psychiatric: Negative for: Alert - Medications Active Medications: Active Medications Generic Name Dose Route Start Last Admin Trade Name Freq PRN Reason Stop Dose Admin Dextrose 0 ml 03/18/18 11:22 Dextrose 50% Inj IV STAT PRN Hypoglycemia Protocol Protocol Heparin Sodium (Porcine) 5,000 units 03/18/18 22:00 03/21/18 05:39 Heparin SC 5,000 units Q8 GABE Administration Protocol Dextrose 1,000 mls @ 0 mls/hr 03/18/18 11:22 Dextrose 5% In Water 1000 Ml IV .Q0M PRN Hypoglycemia Protocol Protocol Per Protocol NOREPINEPHRINE BIT/0.9 % NACL 4 mg in 250 mls @ 15 mls/hr 03/18/18 13:04 17:10 Levophed 4 Mg/ 250 Ml Ns Premixed IV 0 mcg/min .Q00M24L PRN 0 mls/hr TITRATE PER MD ORDER Titration Protocol 4 MCG/MIN Propofol 1,000 mg in 100 mls @ 1.817 mls/hr 03/18/18 14:23 03/19/18 09:25 Diprivan IV 0 mcg/kg/min .Q24H PRN 0 mls/hr TITRATE PER MD ORDER Titration Protocol 5 MCG/KG/MIN Aztreonam 100 mls @ 100 mls/hr 03/18/18 14:30 03/21/18 05:39 Azactam 1 Gm IVPB 03/23/18 14:31 100 mls/hr Q8 GABE Administration Protocol Amiodarone HCl/Dextrose 360 mg in 200 mls @ 16.667 mls/hr 03/18/18 20:15 08:53 Nexterone 360 Mg In D5w 200 Ml (Premix) IV 16.667 mls/hr .Q12H GABE Administration Protocol 0.5 MG/MIN Linezolid 600 mg in 300 mls @ 200 mls/hr 03/18/18 22:00 03/21/18 09:30 Zyvox 600mg/300ml D5w IVPB 03/25/18 22:01 200 mls/hr Q12 GABE Administration Protocol Phenylephrine HCl 40 mg/ 254 mls @ 38.1 mls/hr 03/19/18 07:41 03/21/18 07:13 Sodium Chloride IV 90 mcg/min .Q6H40M PRN 34.29 mls/hr TITRATE PER MD ORDER Titration Protocol 100 MCG/MIN Doxycycline Hyclate 100 mg/ 100 mls @ 100 mls/hr 03/19/18 12:45 03/21/18 09: 31 Sodium Chloride IVPB 100 mls/hr Q12 GABE Administration Protocol Lidocaine HCl/Dextrose 2,000 mg in 500 mls @ 15 mls/hr 03/20/18 17:10 17:29 Lidocaine 2 Grams In D5w IV 1 mg/min .Q24H PRN 15 mls/hr TITRATE PER MD ORDER Administration Protocol 1 MG/MIN Dextrose/Sodium Chloride 1,000 mls @ 50 mls/hr 03/21/18 09:21 Dextrose 5%/0.45% Ns 1000 Ml IV .Q20H GABE Insulin Detemir 10 unit 03/20/18 08:00 03/21/18 09:29 Levemir SC 10 unit Q12 GABE Administration Levalbuterol HCl 1.25 mg 03/19/18 08:00 03/21/18 07:26 Xopenex IH 1.25 mg [id number] GABE Administration Methylprednisolone 40 mg 03/20/18 10:00 03/21/18 09:28 Solu-Medrol IVP 40 mg Q12 GABE Administration Pantoprazole Sodium 40 mg 03/18/18 14:45 03/21/18 09:24 Protonix Inj IVP 40 mg DAILY GABE Administration - Patient Studies Lab Studies: Lab Studies 03/21/18 03/21/18 03/21/18 Range/Units 08:30 05:54 05:50 WBC (4.5-11.0) 10^3/ul RBC (3.5-6.1) 10^6/uL Hgb (12.0-16.0) g/dL Hct (36.0-48.0) % MCV (80.0-105.0) fl MCH (25.0-35.0) pg MCHC (31.0-37.0) g/dl RDW (11.5-14.5) % Plt Count (120.0-450.0) 10^3/uL MPV (7.0-11.0) fl pCO2 25 L (35-45) mm/Hg pO2 182.0 H (80-100) mm/Hg HCO3 19.5 L (21-28) mmol/L ABG pH 7.50 H (7.35-7.45) ABG Total CO2 20.3 L (22-28) mmol.L ABG O2 Saturation 98.1 H (95-98) % ABG O2 Content 15.3 (15-23) ML/dl ABG Base Excess -2.5 L (-2.0-3.0) mmol/L ABG Hemoglobin 10.9 L (11.7-17.4) g/dL ABG Carboxyhemoglobin 0 L (0.5-1.5) % POC ABG HHb (Measured) 1.9 (0-5) % ABG Methemoglobin 0.7 (0.0-3.0) % ABG O2 Capacity 15.6 L (16-24) mL/dl Hgb O2 Saturation 97.4 (95.0-98.0) % FiO2 60.0 % Sodium 130 L (132-148) mmol/L Potassium 3.6 (3.6-5.0) mmol/L Chloride 99 (98-107) mmol/L Carbon Dioxide 22 (21-33) mmol/L Anion Gap 12 (10-20) BUN 16 (7-21) mg/dL Creatinine 0.6 L (0.7-1.2) mg/dl Est GFR ( Amer) > 60 Est GFR (Non-Af Amer) > 60 POC Glucose (mg/dL) 226 H (65-110) mg/dL Random Glucose 214 H (70-110) mg/dL Calcium 7.8 L (8.4-10.5) mg/dL Magnesium (1.7-2.2) mg/dL Total Bilirubin 0.3 (0.2-1.3) mg/dL AST 814 H D (14-36) U/L ALT 780 H (7-56) U/L Alkaline Phosphatase 139 H D (38-126) U/L Total Protein 5.2 L (5.8-8.3) g/dL Albumin 2.5 L (3.0-4.8) g/dL Globulin 2.7 gm/dL Albumin/Globulin Ratio 0.9 L (1.1-1.8) Procalcitonin (0.19-0.49) NG/ML 03/21/18 03/21/18 03/21/18 Range/Units 05:50 04:04 00:09 WBC 17.1 H (4.5-11.0) 10^3/ul RBC 3.83 (3.5-6.1) 10^6/uL Hgb 11.0 L (12.0-16.0) g/dL Hct 32.8 L (36.0-48.0) % MCV 85.6 (80.0-105.0) fl MCH 28.7 (25.0-35.0) pg MCHC 33.5 (31.0-37.0) g/dl RDW 14.7 H (11.5-14.5) % Plt Count 256 (120.0-450.0) 10^3/uL MPV 13.0 H (7.0-11.0) fl pCO2 (35-45) mm/Hg pO2 (80-100) mm/Hg HCO3 (21-28) mmol/L ABG pH (7.35-7.45) ABG Total CO2 (22-28) mmol.L ABG O2 Saturation (95-98) % ABG O2 Content (15-23) ML/dl ABG Base Excess (-2.0-3.0) mmol/L ABG Hemoglobin (11.7-17.4) g/dL ABG Carboxyhemoglobin (0.5-1.5) % POC ABG HHb (Measured) (0-5) % ABG Methemoglobin (0.0-3.0) % ABG O2 Capacity (16-24) mL/dl Hgb O2 Saturation (95.0-98.0) % FiO2 % Sodium (132-148) mmol/L Potassium (3.6-5.0) mmol/L Chloride (98-107) mmol/L Carbon Dioxide (21-33) mmol/L Anion Gap (10-20) BUN (7-21) mg/dL Creatinine (0.7-1.2) mg/dl Est GFR ( Amer) Est GFR (Non-Af Amer) POC Glucose (mg/dL) 243 H 207 H (65-110) mg/dL Random Glucose (70-110) mg/dL Calcium (8.4-10.5) mg/dL Magnesium (1.7-2.2) mg/dL Total Bilirubin (0.2-1.3) mg/dL AST (14-36) U/L ALT (7-56) U/L Alkaline Phosphatase (38-126) U/L Total Protein (5.8-8.3) g/dL Albumin (3.0-4.8) g/dL Globulin gm/dL Albumin/Globulin Ratio (1.1-1.8) Procalcitonin (0.19-0.49) NG/ML 03/20/18 03/20/18 03/20/18 Range/Units 19:44 16:05 11:36 WBC (4.5-11.0) 10^3/ul RBC (3.5-6.1) 10^6/uL Hgb (12.0-16.0) g/dL Hct (36.0-48.0) % MCV (80.0-105.0) fl MCH (25.0-35.0) pg MCHC (31.0-37.0) g/dl RDW (11.5-14.5) % Plt Count (120.0-450.0) 10^3/uL MPV (7.0-11.0) fl pCO2 (35-45) mm/Hg pO2 (80-100) mm/Hg HCO3 (21-28) mmol/L ABG pH (7.35-7.45) ABG Total CO2 (22-28) mmol.L ABG O2 Saturation (95-98) % ABG O2 Content (15-23) ML/dl ABG Base Excess (-2.0-3.0) mmol/L ABG Hemoglobin (11.7-17.4) g/dL ABG Carboxyhemoglobin (0.5-1.5) % POC ABG HHb (Measured) (0-5) % ABG Methemoglobin (0.0-3.0) % ABG O2 Capacity (16-24) mL/dl Hgb O2 Saturation (95.0-98.0) % FiO2 % Sodium (132-148) mmol/L Potassium (3.6-5.0) mmol/L Chloride (98-107) mmol/L Carbon Dioxide (21-33) mmol/L Anion Gap (10-20) BUN (7-21) mg/dL Creatinine (0.7-1.2) mg/dl Est GFR ( Amer) Est GFR (Non-Af Amer) POC Glucose (mg/dL) 217 H 228 H 155 H (65-110) mg/dL Random Glucose (70-110) mg/dL Calcium (8.4-10.5) mg/dL Magnesium (1.7-2.2) mg/dL Total Bilirubin (0.2-1.3) mg/dL AST (14-36) U/L ALT (7-56) U/L Alkaline Phosphatase (38-126) U/L Total Protein (5.8-8.3) g/dL Albumin (3.0-4.8) g/dL Globulin gm/dL Albumin/Globulin Ratio (1.1-1.8) Procalcitonin (0.19-0.49) NG/ML 03/20/18 03/20/18 03/20/18 Range/Units 08:14 06:00 06:00 WBC (4.5-11.0) 10^3/ul RBC (3.5-6.1) 10^6/uL Hgb (12.0-16.0) g/dL Hct (36.0-48.0) % MCV (80.0-105.0) fl MCH (25.0-35.0) pg MCHC (31.0-37.0) g/dl RDW (11.5-14.5) % Plt Count (120.0-450.0) 10^3/uL MPV (7.0-11.0) fl pCO2 (35-45) mm/Hg pO2 (80-100) mm/Hg HCO3 (21-28) mmol/L ABG pH (7.35-7.45) ABG Total CO2 (22-28) mmol.L ABG O2 Saturation (95-98) % ABG O2 Content (15-23) ML/dl ABG Base Excess (-2.0-3.0) mmol/L ABG Hemoglobin (11.7-17.4) g/dL ABG Carboxyhemoglobin (0.5-1.5) % POC ABG HHb (Measured) (0-5) % ABG Methemoglobin (0.0-3.0) % ABG O2 Capacity (16-24) mL/dl Hgb O2 Saturation (95.0-98.0) % FiO2 % Sodium (132-148) mmol/L Potassium (3.6-5.0) mmol/L Chloride (98-107) mmol/L Carbon Dioxide (21-33) mmol/L Anion Gap (10-20) BUN (7-21) mg/dL Creatinine (0.7-1.2) mg/dl Est GFR ( Amer) Est GFR (Non-Af Amer) POC Glucose (mg/dL) 98 (65-110) mg/dL Random Glucose (70-110) mg/dL Calcium (8.4-10.5) mg/dL Magnesium 1.7 (1.7-2.2) mg/dL Total Bilirubin (0.2-1.3) mg/dL AST (14-36) U/L ALT (7-56) U/L Alkaline Phosphatase (38-126) U/L Total Protein (5.8-8.3) g/dL Albumin (3.0-4.8) g/dL Globulin gm/dL Albumin/Globulin Ratio (1.1-1.8) Procalcitonin 4.37 H (0.19-0.49) NG/ML Laboratory Results - last 24 hr 03/20/18 03/20/18 03/20/18 06:00 06:00 08:14 WBC RBC Hgb Hct MCV MCH MCHC RDW Plt Count MPV pCO2 pO2 HCO3 ABG pH ABG Total CO2 ABG O2 Saturation ABG O2 Content ABG Base Excess ABG Hemoglobin ABG Carboxyhemoglobin POC ABG HHb (Measured) ABG Methemoglobin ABG O2 Capacity Hgb O2 Saturation FiO2 Sodium Potassium Chloride Carbon Dioxide Anion Gap BUN Creatinine Est GFR ( Amer) Est GFR (Non-Af Amer) POC Glucose (mg/dL) 98 Random Glucose Calcium Magnesium 1.7 Total Bilirubin AST ALT Alkaline Phosphatase Total Protein Albumin Globulin Albumin/Globulin Ratio Procalcitonin 4.37 H 03/20/18 03/20/18 03/20/18 11:36 16:05 19:44 WBC RBC Hgb Hct MCV MCH MCHC RDW Plt Count MPV pCO2 pO2 HCO3 ABG pH ABG Total CO2 ABG O2 Saturation ABG O2 Content ABG Base Excess ABG Hemoglobin ABG Carboxyhemoglobin POC ABG HHb (Measured) ABG Methemoglobin ABG O2 Capacity Hgb O2 Saturation FiO2 Sodium Potassium Chloride Carbon Dioxide Anion Gap BUN Creatinine Est GFR ( Amer) Est GFR (Non-Af Amer) POC Glucose (mg/dL) 155 H 228 H 217 H Random Glucose Calcium Magnesium Total Bilirubin AST ALT Alkaline Phosphatase Total Protein Albumin Globulin Albumin/Globulin Ratio Procalcitonin 03/21/18 03/21/18 03/21/18 00:09 04:04 05:50 WBC 17.1 H RBC 3.83 Hgb 11.0 L Hct 32.8 L MCV 85.6 MCH 28.7 MCHC 33.5 RDW 14.7 H Plt Count 256 MPV 13.0 H pCO2 pO2 HCO3 ABG pH ABG Total CO2 ABG O2 Saturation ABG O2 Content ABG Base Excess ABG Hemoglobin ABG Carboxyhemoglobin POC ABG HHb (Measured) ABG Methemoglobin ABG O2 Capacity Hgb O2 Saturation FiO2 Sodium Potassium Chloride Carbon Dioxide Anion Gap BUN Creatinine Est GFR ( Amer) Est GFR (Non-Af Amer) POC Glucose (mg/dL) 207 H 243 H Random Glucose Calcium Magnesium Total Bilirubin AST ALT Alkaline Phosphatase Total Protein Albumin Globulin Albumin/Globulin Ratio Procalcitonin 03/21/18 03/21/18 03/21/18 05:50 05:54 08:30 WBC RBC Hgb Hct MCV MCH MCHC RDW Plt Count MPV pCO2 25 L pO2 182.0 H HCO3 19.5 L ABG pH 7.50 H ABG Total CO2 20.3 L ABG O2 Saturation 98.1 H ABG O2 Content 15.3 ABG Base Excess -2.5 L ABG Hemoglobin 10.9 L ABG Carboxyhemoglobin 0 L POC ABG HHb (Measured) 1.9 ABG Methemoglobin 0.7 ABG O2 Capacity 15.6 L Hgb O2 Saturation 97.4 FiO2 60.0 Sodium 130 L Potassium 3.6 Chloride 99 Carbon Dioxide 22 Anion Gap 12 BUN 16 Creatinine 0.6 L Est GFR ( Amer) > 60 Est GFR (Non-Af Amer) > 60 POC Glucose (mg/dL) 226 H Random Glucose 214 H Calcium 7.8 L Magnesium Total Bilirubin 0.3 AST 814 H D ALT 780 H Alkaline Phosphatase 139 H D Total Protein 5.2 L Albumin 2.5 L Globulin 2.7 Albumin/Globulin Ratio 0.9 L Procalcitonin EKG/Cardiology Studies: Cardiology / EKG Studies 03/20/18 16:01 EKG [ELECTROCARDIOGRAM] Stat Comment: Reason For Exam: Abnormal heart monitor rhythm 03/21/18 08:46 EKG [ELECTROCARDIOGRAM] Routine Comment: Reason For Exam: follow up Fingerstick Blood Sugar Results: 226 Assessment/Plan - Assessment and Plan (Free Text) Assessment: This is a 58 year old female with PMH of chronic respiratory insufficiency, severe COPD, DM, multiple sclerosis, myotonic dystrophy, hypothyroidism, and renal cancer presenting to the ICU for management of acute hypoxic respiratory failure requiring ventilator complicated by cardiopulmonary assist and sepsis secondary to likely UTI. Patient made DNR today. Possible terminal extubation tomorrow. Plan: Neuro: -rewarming protocol ended yesterday. Temperature today is 100.1 -currently intubated -not on sedation and patient not arousable and non responsive -DNR today, per cousin, Odilia Ferrer -EEG showed delta waves concerning for severe B/L cerebral dysfunction -CT head pending -Neuro on consult, Dr. Wang Cardio: -maintain MAP>65 -will monitor vitals including HR and BP closely. BP currently in the 90-100s/50 -60s and HR 50-60s -Echo shows EF 55-60%, RVSP 34, no preicardial effusion. Trace TR and MR -On amiodarone and lidocaine drip, Vtach yesterday evening. -On phenylephrine drip. Currently not on vasopressin or levophed -Cardio consulted, Dr. Mcginnis Lungs: -vent settings of TV 400, PEEP 5, RR 16 (from 20 yesterday) and FiO2 60% (from 80% yesterday) -SaO2 >90% -supplementary O2 PRN -solumedrol 40mg q8, xopenex -CXR today shows no significant interval change from previous bibasilar subsegmental atelectasis -Pulm consulted, Dr. Leyva Renal: -maintain euvolemia -avoid nephrotoxic agents, hypochloremia -replace electrolytes as needed -dextrose 5% in 1/2NS @ 50 ml/hr -ABG today reads pH/pO2/pCO2/bicarb of 7.5/182/25/19.5. Primary respiratory alkalosis -U/A positive for leukocyte esterase, large bacteria, 20-25 WBC -I/O: 6.7L/1.7L. Positive balance of 4.9L Heme: -Hg today is 12.6 WNL -LE duplex shows no DVT in legs, limited study -DVT ppx with heparin 5k SC Endo: -maintain euglycemia -Gap of 15 on admission, no ketones in urine -finger sticks q4 -currently on levemir 20 units q12 -A1c 9.7 -Endo consulted, Dr. De La Rosa ID: -WBC is 17.1 from 20.4, afebrile -On aztreonam, doxy and zyvox -urine culture shows E coli, blood culture negative 48 hours -ID consulted, Dr. Glynn -GI: -GI prophylaxis with protonix <Cook,Bilal - Last Filed: 03/21/18 13:16> CCU Objective - Vital Signs / Intake & Output Intake and Output (Last 8hrs): Intake & Output 03/20/18 03/21/18 03/21/18 22:59 06:59 14:59 Intake Total 3310 3246 76 Output Total 340 1400 Balance 2970 1846 76 Intake: IV 3310 3246 76 Left Antecubital 0 Left Forearm 0 Right Femoral 0 Right Internal Jugular 3120 2430 amioderone 200 insulin 0 levophed 0 vasopressin 108 Oral 0 Tube Feeding 0 Output: Urine 340 1400 Urethral (Carrera) 340 1400 Other: # Bowel Movements 3 - Medications Active Medications: Active Medications Generic Name Dose Route Start Last Admin Trade Name Freq PRN Reason Stop Dose Admin Dextrose 0 ml 03/18/18 11:22 Dextrose 50% Inj IV STAT PRN Hypoglycemia Protocol Protocol Heparin Sodium (Porcine) 5,000 units 03/18/18 22:00 03/21/18 05:39 Heparin SC 5,000 units Q8 GABE Administration Protocol Dextrose 1,000 mls @ 0 mls/hr 03/18/18 11:22 Dextrose 5% In Water 1000 Ml IV .Q0M PRN Hypoglycemia Protocol Protocol Per Protocol Propofol 1,000 mg in 100 mls @ 1.817 mls/hr 03/18/18 14:23 03/19/18 09:25 Diprivan IV 0 mcg/kg/min .Q24H PRN 0 mls/hr TITRATE PER MD ORDER Titration Protocol 5 MCG/KG/MIN Aztreonam 100 mls @ 100 mls/hr 03/18/18 14:30 03/21/18 05:39 Azactam 1 Gm IVPB 03/23/18 14:31 100 mls/hr Q8 GABE Administration Protocol Amiodarone HCl/Dextrose 360 mg in 200 mls @ 16.667 mls/hr 03/18/18 20:15 08:53 Nexterone 360 Mg In D5w 200 Ml (Premix) IV 16.667 mls/hr .Q12H GABE Administration Protocol 0.5 MG/MIN Linezolid 600 mg in 300 mls @ 200 mls/hr 03/18/18 22:00 03/21/18 09:30 Zyvox 600mg/300ml D5w IVPB 03/25/18 22:01 200 mls/hr Q12 GABE Administration Protocol Phenylephrine HCl 40 mg/ 254 mls @ 38.1 mls/hr 03/19/18 07:41 03/21/18 07:13 Sodium Chloride IV 90 mcg/min .Q6H40M PRN 34.29 mls/hr TITRATE PER MD ORDER Titration Protocol 100 MCG/MIN Doxycycline Hyclate 100 mg/ 100 mls @ 100 mls/hr 03/19/18 12:45 03/21/18 09: 31 Sodium Chloride IVPB 100 mls/hr Q12 GABE Administration Protocol Lidocaine HCl/Dextrose 2,000 mg in 500 mls @ 15 mls/hr 03/20/18 17:10 17:29 Lidocaine 2 Grams In D5w IV 1 mg/min .Q24H PRN 15 mls/hr TITRATE PER MD ORDER Administration Protocol 1 MG/MIN Dextrose/Sodium Chloride 1,000 mls @ 50 mls/hr 03/21/18 09:21 Dextrose 5%/0.45% Ns 1000 Ml IV .Q20H GABE Insulin Detemir 20 unit 03/21/18 20:00 Levemir SC Q12 GABE Levalbuterol HCl 1.25 mg 03/19/18 08:00 03/21/18 07:26 Xopenex IH 1.25 mg [id number] GABE Administration Methylprednisolone 40 mg 03/20/18 10:00 03/21/18 09:28 Solu-Medrol IVP 40 mg Q12 GABE Administration Pantoprazole Sodium 40 mg 03/18/18 14:45 03/21/18 09:24 Protonix Inj IVP 40 mg DAILY GABE Administration - Patient Studies Lab Studies: Lab Studies 03/21/18 03/21/18 03/21/18 Range/Units 12:01 08:30 05:54 WBC (4.5-11.0) 10^3/ul RBC (3.5-6.1) 10^6/uL Hgb (12.0-16.0) g/dL Hct (36.0-48.0) % MCV (80.0-105.0) fl MCH (25.0-35.0) pg MCHC (31.0-37.0) g/dl RDW (11.5-14.5) % Plt Count (120.0-450.0) 10^3/uL MPV (7.0-11.0) fl pCO2 25 L (35-45) mm/Hg pO2 182.0 H (80-100) mm/Hg HCO3 19.5 L (21-28) mmol/L ABG pH 7.50 H (7.35-7.45) ABG Total CO2 20.3 L (22-28) mmol.L ABG O2 Saturation 98.1 H (95-98) % ABG O2 Content 15.3 (15-23) ML/dl ABG Base Excess -2.5 L (-2.0-3.0) mmol/L ABG Hemoglobin 10.9 L (11.7-17.4) g/dL ABG Carboxyhemoglobin 0 L (0.5-1.5) % POC ABG HHb (Measured) 1.9 (0-5) % ABG Methemoglobin 0.7 (0.0-3.0) % ABG O2 Capacity 15.6 L (16-24) mL/dl Hgb O2 Saturation 97.4 (95.0-98.0) % FiO2 60.0 % Sodium (132-148) mmol/L Potassium (3.6-5.0) mmol/L Chloride (98-107) mmol/L Carbon Dioxide (21-33) mmol/L Anion Gap (10-20) BUN (7-21) mg/dL Creatinine (0.7-1.2) mg/dl Est GFR ( Amer) Est GFR (Non-Af Amer) POC Glucose (mg/dL) 298 H 226 H (65-110) mg/dL Random Glucose (70-110) mg/dL Calcium (8.4-10.5) mg/dL Magnesium (1.7-2.2) mg/dL Total Bilirubin (0.2-1.3) mg/dL AST (14-36) U/L ALT (7-56) U/L Alkaline Phosphatase (38-126) U/L Total Protein (5.8-8.3) g/dL Albumin (3.0-4.8) g/dL Globulin gm/dL Albumin/Globulin Ratio (1.1-1.8) Procalcitonin (0.19-0.49) NG/ML 03/21/18 03/21/18 03/21/18 Range/Units 05:50 05:50 04:04 WBC 17.1 H (4.5-11.0) 10^3/ul RBC 3.83 (3.5-6.1) 10^6/uL Hgb 11.0 L (12.0-16.0) g/dL Hct 32.8 L (36.0-48.0) % MCV 85.6 (80.0-105.0) fl MCH 28.7 (25.0-35.0) pg MCHC 33.5 (31.0-37.0) g/dl RDW 14.7 H (11.5-14.5) % Plt Count 256 (120.0-450.0) 10^3/uL MPV 13.0 H (7.0-11.0) fl pCO2 (35-45) mm/Hg pO2 (80-100) mm/Hg HCO3 (21-28) mmol/L ABG pH (7.35-7.45) ABG Total CO2 (22-28) mmol.L ABG O2 Saturation (95-98) % ABG O2 Content (15-23) ML/dl ABG Base Excess (-2.0-3.0) mmol/L ABG Hemoglobin (11.7-17.4) g/dL ABG Carboxyhemoglobin (0.5-1.5) % POC ABG HHb (Measured) (0-5) % ABG Methemoglobin (0.0-3.0) % ABG O2 Capacity (16-24) mL/dl Hgb O2 Saturation (95.0-98.0) % FiO2 % Sodium 130 L (132-148) mmol/L Potassium 3.6 (3.6-5.0) mmol/L Chloride 99 (98-107) mmol/L Carbon Dioxide 22 (21-33) mmol/L Anion Gap 12 (10-20) BUN 16 (7-21) mg/dL Creatinine 0.6 L (0.7-1.2) mg/dl Est GFR ( Amer) > 60 Est GFR (Non-Af Amer) > 60 POC Glucose (mg/dL) 243 H (65-110) mg/dL Random Glucose 214 H (70-110) mg/dL Calcium 7.8 L (8.4-10.5) mg/dL Magnesium (1.7-2.2) mg/dL Total Bilirubin 0.3 (0.2-1.3) mg/dL AST 814 H D (14-36) U/L ALT 780 H (7-56) U/L Alkaline Phosphatase 139 H D (38-126) U/L Total Protein 5.2 L (5.8-8.3) g/dL Albumin 2.5 L (3.0-4.8) g/dL Globulin 2.7 gm/dL Albumin/Globulin Ratio 0.9 L (1.1-1.8) Procalcitonin (0.19-0.49) NG/ML 03/21/18 03/20/18 03/20/18 Range/Units 00:09 19:44 16:05 WBC (4.5-11.0) 10^3/ul RBC (3.5-6.1) 10^6/uL Hgb (12.0-16.0) g/dL Hct (36.0-48.0) % MCV (80.0-105.0) fl MCH (25.0-35.0) pg MCHC (31.0-37.0) g/dl RDW (11.5-14.5) % Plt Count (120.0-450.0) 10^3/uL MPV (7.0-11.0) fl pCO2 (35-45) mm/Hg pO2 (80-100) mm/Hg HCO3 (21-28) mmol/L ABG pH (7.35-7.45) ABG Total CO2 (22-28) mmol.L ABG O2 Saturation (95-98) % ABG O2 Content (15-23) ML/dl ABG Base Excess (-2.0-3.0) mmol/L ABG Hemoglobin (11.7-17.4) g/dL ABG Carboxyhemoglobin (0.5-1.5) % POC ABG HHb (Measured) (0-5) % ABG Methemoglobin (0.0-3.0) % ABG O2 Capacity (16-24) mL/dl Hgb O2 Saturation (95.0-98.0) % FiO2 % Sodium (132-148) mmol/L Potassium (3.6-5.0) mmol/L Chloride (98-107) mmol/L Carbon Dioxide (21-33) mmol/L Anion Gap (10-20) BUN (7-21) mg/dL Creatinine (0.7-1.2) mg/dl Est GFR ( Amer) Est GFR (Non-Af Amer) POC Glucose (mg/dL) 207 H 217 H 228 H (65-110) mg/dL Random Glucose (70-110) mg/dL Calcium (8.4-10.5) mg/dL Magnesium (1.7-2.2) mg/dL Total Bilirubin (0.2-1.3) mg/dL AST (14-36) U/L ALT (7-56) U/L Alkaline Phosphatase (38-126) U/L Total Protein (5.8-8.3) g/dL Albumin (3.0-4.8) g/dL Globulin gm/dL Albumin/Globulin Ratio (1.1-1.8) Procalcitonin (0.19-0.49) NG/ML 03/20/18 03/20/18 03/20/18 Range/Units 11:36 06:00 06:00 WBC (4.5-11.0) 10^3/ul RBC (3.5-6.1) 10^6/uL Hgb (12.0-16.0) g/dL Hct (36.0-48.0) % MCV (80.0-105.0) fl MCH (25.0-35.0) pg MCHC (31.0-37.0) g/dl RDW (11.5-14.5) % Plt Count (120.0-450.0) 10^3/uL MPV (7.0-11.0) fl pCO2 (35-45) mm/Hg pO2 (80-100) mm/Hg HCO3 (21-28) mmol/L ABG pH (7.35-7.45) ABG Total CO2 (22-28) mmol.L ABG O2 Saturation (95-98) % ABG O2 Content (15-23) ML/dl ABG Base Excess (-2.0-3.0) mmol/L ABG Hemoglobin (11.7-17.4) g/dL ABG Carboxyhemoglobin (0.5-1.5) % POC ABG HHb (Measured) (0-5) % ABG Methemoglobin (0.0-3.0) % ABG O2 Capacity (16-24) mL/dl Hgb O2 Saturation (95.0-98.0) % FiO2 % Sodium (132-148) mmol/L Potassium (3.6-5.0) mmol/L Chloride (98-107) mmol/L Carbon Dioxide (21-33) mmol/L Anion Gap (10-20) BUN (7-21) mg/dL Creatinine (0.7-1.2) mg/dl Est GFR ( Amer) Est GFR (Non-Af Amer) POC Glucose (mg/dL) 155 H (65-110) mg/dL Random Glucose (70-110) mg/dL Calcium (8.4-10.5) mg/dL Magnesium 1.7 (1.7-2.2) mg/dL Total Bilirubin (0.2-1.3) mg/dL AST (14-36) U/L ALT (7-56) U/L Alkaline Phosphatase (38-126) U/L Total Protein (5.8-8.3) g/dL Albumin (3.0-4.8) g/dL Globulin gm/dL Albumin/Globulin Ratio (1.1-1.8) Procalcitonin 4.37 H (0.19-0.49) NG/ML Laboratory Results - last 24 hr 03/20/18 03/20/18 03/20/18 06:00 06:00 11:36 WBC RBC Hgb Hct MCV MCH MCHC RDW Plt Count MPV pCO2 pO2 HCO3 ABG pH ABG Total CO2 ABG O2 Saturation ABG O2 Content ABG Base Excess ABG Hemoglobin ABG Carboxyhemoglobin POC ABG HHb (Measured) ABG Methemoglobin ABG O2 Capacity Hgb O2 Saturation FiO2 Sodium Potassium Chloride Carbon Dioxide Anion Gap BUN Creatinine Est GFR ( Amer) Est GFR (Non-Af Amer) POC Glucose (mg/dL) 155 H Random Glucose Calcium Magnesium 1.7 Total Bilirubin AST ALT Alkaline Phosphatase Total Protein Albumin Globulin Albumin/Globulin Ratio Procalcitonin 4.37 H 03/20/18 03/20/18 03/21/18 16:05 19:44 00:09 WBC RBC Hgb Hct MCV MCH MCHC RDW Plt Count MPV pCO2 pO2 HCO3 ABG pH ABG Total CO2 ABG O2 Saturation ABG O2 Content ABG Base Excess ABG Hemoglobin ABG Carboxyhemoglobin POC ABG HHb (Measured) ABG Methemoglobin ABG O2 Capacity Hgb O2 Saturation FiO2 Sodium Potassium Chloride Carbon Dioxide Anion Gap BUN Creatinine Est GFR ( Amer) Est GFR (Non-Af Amer) POC Glucose (mg/dL) 228 H 217 H 207 H Random Glucose Calcium Magnesium Total Bilirubin AST ALT Alkaline Phosphatase Total Protein Albumin Globulin Albumin/Globulin Ratio Procalcitonin 03/21/18 03/21/18 03/21/18 04:04 05:50 05:50 WBC 17.1 H RBC 3.83 Hgb 11.0 L Hct 32.8 L MCV 85.6 MCH 28.7 MCHC 33.5 RDW 14.7 H Plt Count 256 MPV 13.0 H pCO2 pO2 HCO3 ABG pH ABG Total CO2 ABG O2 Saturation ABG O2 Content ABG Base Excess ABG Hemoglobin ABG Carboxyhemoglobin POC ABG HHb (Measured) ABG Methemoglobin ABG O2 Capacity Hgb O2 Saturation FiO2 Sodium 130 L Potassium 3.6 Chloride 99 Carbon Dioxide 22 Anion Gap 12 BUN 16 Creatinine 0.6 L Est GFR ( Amer) > 60 Est GFR (Non-Af Amer) > 60 POC Glucose (mg/dL) 243 H Random Glucose 214 H Calcium 7.8 L Magnesium Total Bilirubin 0.3 AST 814 H D ALT 780 H Alkaline Phosphatase 139 H D Total Protein 5.2 L Albumin 2.5 L Globulin 2.7 Albumin/Globulin Ratio 0.9 L Procalcitonin 03/21/18 03/21/18 03/21/18 05:54 08:30 12:01 WBC RBC Hgb Hct MCV MCH MCHC RDW Plt Count MPV pCO2 25 L pO2 182.0 H HCO3 19.5 L ABG pH 7.50 H ABG Total CO2 20.3 L ABG O2 Saturation 98.1 H ABG O2 Content 15.3 ABG Base Excess -2.5 L ABG Hemoglobin 10.9 L ABG Carboxyhemoglobin 0 L POC ABG HHb (Measured) 1.9 ABG Methemoglobin 0.7 ABG O2 Capacity 15.6 L Hgb O2 Saturation 97.4 FiO2 60.0 Sodium Potassium Chloride Carbon Dioxide Anion Gap BUN Creatinine Est GFR ( Amer) Est GFR (Non-Af Amer) POC Glucose (mg/dL) 226 H 298 H Random Glucose Calcium Magnesium Total Bilirubin AST ALT Alkaline Phosphatase Total Protein Albumin Globulin Albumin/Globulin Ratio Procalcitonin EKG/Cardiology Studies: Cardiology / EKG Studies 03/20/18 16:01 EKG [ELECTROCARDIOGRAM] Stat Comment: Reason For Exam: Abnormal heart monitor rhythm 03/21/18 08:46 EKG [ELECTROCARDIOGRAM] Routine Comment: Reason For Exam: follow up Addendum Addendum: 03/21/18 13:14 ICU Attending Addendum: Patient seen and examined. Case reviewed on round with housestaff. Agree with resident note above with the following additions/exceptions: 58F hx of severe COPD, DM, multiple sclerosis, myotonic dystrophy, hypothyroidism, and renal cancer presenting to the ED via EMS for respiratory distress intubated in the field subsequently went into cardiac arrest during CT scan (VT) now intubated, on pressors s/p hypothermic protocol. At this point, resume post-cardiac resuscitation care Reawarming phase completed F?U EEG, will begin neuro prognositcation now pallitive team in contact with family, considering [employer] tomorrow for now, Abx as per ID , steroids solumedrol 40 q8h Noted patient cardiac events yesterday, run of VT f/u card recs q6h fingersticks GI ppx protonix DVT ppx - hep Sq NPO Rest of care as noted above. Maurice Cook MD [employer] Critical care time : 35mins
--- NOTE | 2018-03-21 12:19 | PN ---
Copied To: Venancio Mcginnis MD Attending MD: Venancio Mcginnis MD DATE: 03/21/2018 CARDIOLOGY FOLLOWUP SUBJECTIVE: The patient remains on a ventilator. She had multiple episodes of ventricular tachycardia yesterday. She was started on lidocaine as well as IV amiodarone. PHYSICAL EXAMINATION: GENERAL: The patient is on a ventilator. VITAL SIGNS: Noted. NECK: Negative JVD. LUNGS: Without rales. HEART: Reveals S1, S2. Heart rate is in the 40s. EXTREMITIES: Without edema. NEUROLOGIC: The patient is unresponsive. LABORATORY DATA: The glucose is 214. The potassium is still at 3.6 with a magnesium of 1.7 which is presumably corrected. IMPRESSION: 1. Respiratory failure. 2. Status post cardiac arrest. 3. Elevated troponin secondary to cardiac arrest, secondary to respiratory arrest. 4. Ventricular arrhythmias. Given these findings, we will correct her potassium and magnesium. The patient is currently on IV lidocaine. We will add beta timbo and correct her magnesium and potassium. Venancio Mcginnis MD
--- NOTE | 2018-03-21 13:22 | CARD ---
APPROVED REPORT Date of service: 03/21/2018 EKG Measurement Heart [id number] <Conclusion> Junctional rhythm Low voltage QRS Anterolateral infarct, age undetermined Prolonged QT Abnormal ECG
--- NOTE | 2018-03-21 13:33 | CT ---
Date of service: 03/21/2018 PROCEDURE: CT HEAD WITHOUT CONTRAST. HISTORY: s/p cardiopulmonary arrest COMPARISON: 08/04/2016 TECHNIQUE: Axial computed tomography images were obtained through the head/brain without intravenous contrast. Radiation dose: Total exam DLP = 856.57 mGy-cm. This CT exam was performed using one or more of the following dose reduction techniques: Automated exposure control, adjustment of the mA and/or kV according to patient size, and/or use of iterative reconstruction technique. FINDINGS: HEMORRHAGE: No intracranial hemorrhage. BRAIN: No mass effect or edema. Minimal chronic periventricular white matter lucency consistent with microvascular ischemic change. Small old left lentiform nucleus lacunar infarct. No evidence of acute infarct. VENTRICLES: Unremarkable. No hydrocephalus. CALVARIUM: Unremarkable. PARANASAL SINUSES: Chronic sinusitis involving visualized paranasal sinuses including sphenoid, ethmoid, frontal and left maxillary. MASTOID AIR CELLS: Bilateral nonspecific mastoid effusions with fluid in the middle ear cavity bilaterally. OTHER FINDINGS: None. IMPRESSION: No evidence of acute infarct. No evidence of intracranial hemorrhage. Chronic white matter ischemic change and old left basal ganglia lacunar infarct. Nonspecific bilateral mastoid effusions.
--- NOTE | 2018-03-21 14:00 | PN ---
Copied To: Dallin Glynn MD Attending MD: Dallin Glynn MD DATE: 03/21/2018 SUBJECTIVE: The patient is in bed, in no acute distress. When seen early this morning, intubated on a ventilator in the ICU. PHYSICAL EXAMINATION: VITAL SIGNS: On exam, temperature is 98, T-max is 100.4, heart rate is 61, blood pressure is 129/50, respiratory rate on a vent. HEENT: Examination of HEENT is unremarkable. ET tube is in place. NECK: Supple. LUNGS: Have decreased breath sounds. HEART: Normal S1, S2. ABDOMEN: Soft, nontender. LABORATORY DATA: Laboratory examination reveals the white count is down to 17,000, hemoglobin of 11, platelets of 256. Chemistries reveals the patient's BUN of 16, creatinine of 0.6. LFTs are elevated and urinalysis is noted. Microbiology reveals E. coli in the urine. The blood cultures have no growth and nares MRSA is not detected. The E. coli in the urine, ESBL E. coli. Review of orders reveals the patient to be on aztreonam, Zyvox, doxycycline. ASSESSMENT AND PLAN: A 58-year-old female with severe sepsis, ventilatory failure, respiratory failure with Escherichia coli, extended-spectrum beta-lactamase in urine as the source. Must rule out healthcare-associated pneumonia in a patient with history of bronchitis and bacteriuria and Escherichia coli in the urine in the past with a history of myotonic dystrophy and hypothyroidism and with a percutaneous endoscopic gastrostomy tube placement, now intubated on a ventilator. The patient with a history of renal cancer, on Zyvox. We will discontinue the Azactam, use meropenem since the patient is intubated on a ventilator anyway with the doxycycline. The patient's nares methicillin-resistant Staphylococcus aureus is negative. We will discontinue the doxycycline if the urine Legionella antigen is negative. The patient's last chest x-ray was done earlier this morning, new patchy infiltrate in the right lower lobe of left lung is noted. Dr. Venancio Mcginnis's note is reviewed, Kylee Richardson's consultation is reviewed. Dallin Glynn MD
--- NOTE | 2018-03-21 14:36 | PN ---
Copied To: Shauna De La Rosa MD Attending MD: Shauna De La Rosa MD DATE: 03/21/2018 LOCATION: CCU 129, room 5. HISTORY OF PRESENT ILLNESS: This is a 58-year-old female with recent acute respiratory failure, currently intubated and unresponsive with recent bouts of ventricular tachycardia and is now being followed closely for hemodynamic monitoring and cardiac management in the ICU as noted. She is also being followed closely for metabolic management because of recent hyperglycemic accelerations as noted thereof. She is currently on Solu-Medrol given as 40 mg IV every 12 hours as noted. Her glycemic levels today have ranged from 226-298 mg/dL. Her latest chemistry showed a BUN of 16, sodium 130, potassium 3.6, chloride 99, CO2 is 22, glucose is 214 and creatinine is 0.6. She is currently on amiodarone and lidocaine infusions as noted with ongoing IV pressors for persistent hypotension. We will continue the low-dose correction scale using regular insulin as given. We will obtain serial chemistries and supplement accordingly as needed. As mentioned above, we will titrate and increase her basal insulin to Levemir given at 20 units subcu every 12 hours at 08:00 a.m. and 08:00 p.m. daily as given. We will follow. Shauna De La Rosa MD
--- NOTE | 2018-03-21 15:50 | US ---
Date of service: 03/21/2018 HISTORY: elevated lfts COMPARISON: None. TECHNIQUE: Sonographic evaluation of the abdomen. FINDINGS: LIVER: Measures 15.7 cm. Diffusely increased echogenicity of the liver parenchyma. Consistent with fatty infiltration. Smooth contour. No mass. No biliary dilatation. GALLBLADDER: Status post cholecystectomy COMMON BILE DUCT: Measures 7 mm. No stones. No dilatation. PANCREAS: Unremarkable as visualized. No mass. No ductal dilatation. RIGHT KIDNEY: Measures 10.0cm. Normal echogenicity. No calculus, mass, or hydronephrosis. LEFT KIDNEY: Measures 9.5cm. Normal echogenicity. No calculus, mass, or hydronephrosis. SPLEEN: Normal in size and contour. No mass. AORTA: No aneurysmal dilatation. IVC: Unremarkable. OTHER FINDINGS: Mild ascites IMPRESSION: Fatty liver. Mild ascites. Status post cholecystectomy.
[2018-03-21] MEDS: Meropenem IV 1 gm in NS 50 ML IVPB SCH ×2 (18:09→22:03)
[2018-03-21] MEDS: Lidocaine 2 Grams in D5W 2,000 MG/500 ML BAG IV PRN (20:19)
[2018-03-22] MEDS: Levalbuterol 1.25 MG/3 ML Inhal Soln UD IH SCH ×4 (02:17→20:00)
[2018-03-22] MEDS: Dextrose 50% SYRINGE Inj (50 ml) IV PRN ×3 (03:59→12:05)
[2018-03-22] MEDS: Meropenem IV 1 gm in NS 50 ML IVPB SCH ×3 (05:34→21:39)
[2018-03-22 06:12] LABS: ARTERIAL BLOOD GAS HCO3 23.8 mmol/L (21-28); ARTERIAL BLOOD GAS HEMOGLOBIN 11.1 g/dL (11.7-17.4); ARTERIAL BLOOD GAS O2 CAPACITY 15.6 mL/dl (16-24); ARTERIAL BLOOD GAS O2 CONTENT 15.2 ML/dl (15-23); ARTERIAL BLOOD GAS O2 SAT 97.4 % (95-98); ARTERIAL BLOOD GAS PCO2 35 mm/Hg (35-45); ARTERIAL BLOOD GAS PH 7.44 (7.35-7.45); ARTERIAL BLOOD GAS TCO2 24.9 mmol.L (22-28)
[2018-03-22] MEDS: Dextrose 5%/0.45% NS 1,000 ML IV SCH (06:14)
--- NOTE | 2018-03-22 07:25 | CP.PCM.PN ---
Subjective - Date & Time of Evaluation Date of Evaluation: 03/22/18 Time of Evaluation: 07:00 - Subjective Subjective: Endocrinology progress note: Patient seen and examined at bedside. Patient is made DNR. She is currently intubated, and had an episode of VTach yesterday and was shocked. Vassopresin was d/arlene. Not on any sedation. Plan for possible terminal extubation today. 12 Point ROS limited 2/2 intubation. Objective - Vital Signs/Intake and Output Vital Signs (last 24 hours): Temp Pulse Resp BP Pulse Ox 99.0 F 46 L 8 L 122/66 100 03/22/18 07:00 03/22/18 07:00 03/21/18 01:00 03/22/18 07:00 03/22/18 07:00 Intake and Output: 03/22/18 03/22/18 06:59 18:59 Intake Total 754 Output Total 1000 Balance -246 - Medications Medications: Current Medications Dextrose (Dextrose 50% Inj) 0 ml IV STAT PRN; Protocol PRN Reason: Hypoglycemia Protocol Last Admin: 03/22/18 03:59 Dose: 50 ml Heparin Sodium (Porcine) (Heparin) 5,000 units SC Q8 GABE PRN Reason: Protocol Last Admin: 03/22/18 05:33 Dose: 5,000 units Dextrose (Dextrose 5% In Water 1000 Ml) 1,000 mls @ 0 mls/hr IV .Q0M PRN; Protocol; Per Protocol PRN Reason: Hypoglycemia Protocol Propofol (Diprivan) 1,000 mg in 100 mls @ 1.817 mls/hr IV .Q24H PRN; Protocol; 5 MCG/KG/MIN PRN Reason: TITRATE PER MD ORDER Last Titration: 03/19/18 09:25 Dose: 0 mcg/kg/min, 0 mls/hr Amiodarone HCl/Dextrose (Nexterone 360 Mg In D5w 200 Ml (Premix)) 360 mg in 200 mls @ 16.667 mls/hr IV .Q12H GABE; 0.5 MG/MIN PRN Reason: Protocol Last Admin: 03/21/18 21:04 Dose: 16.667 mls/hr Linezolid (Zyvox 600mg/300ml D5w) 600 mg in 300 mls @ 200 mls/hr IVPB Q12 GABE PRN Reason: Protocol Stop: 03/25/18 22:01 Last Admin: 03/21/18 22:03 Dose: 200 mls/hr Phenylephrine HCl 40 mg/ (Sodium Chloride) 254 mls @ 38.1 mls/hr IV .Q6H40M PRN ; Protocol; 100 MCG/MIN PRN Reason: TITRATE PER MD ORDER Last Admin: 03/22/18 06:17 Dose: 90 mcg/min, 34.29 mls/hr Doxycycline Hyclate 100 mg/ (Sodium Chloride) 100 mls @ 100 mls/hr IVPB Q12 GABE PRN Reason: Protocol Last Admin: 03/21/18 22:03 Dose: 100 mls/hr Lidocaine HCl/Dextrose (Lidocaine 2 Grams In D5w) 2,000 mg in 500 mls @ 15 mls/ hr IV .Q24H PRN; Protocol; 1 MG/MIN PRN Reason: TITRATE PER MD ORDER Last Admin: 03/21/18 20:19 Dose: 1 mg/min, 15 mls/hr Dextrose/Sodium Chloride (Dextrose 5%/0.45% Ns 1000 Ml) 1,000 mls @ 50 mls/hr IV .Q20H GABE Last Admin: 03/22/18 06:14 Dose: 50 mls/hr Meropenem (Merrem Iv 1 Gm Premix) 50 mls @ 100 mls/hr IVPB Q8 GABE PRN Reason: Protocol Stop: 03/29/18 14:01 Last Admin: 03/22/18 05:34 Dose: 100 mls/hr Insulin Detemir (Levemir) 20 unit SC Q12 [facility] Last Admin: 03/21/18 22:29 Dose: Not Given Levalbuterol HCl (Xopenex) 1.25 mg IH [id number] [facility] Last Admin: 03/22/18 02:17 Dose: 1.25 mg Methylprednisolone (Solu-Medrol) 40 mg IVP Q12 [facility] Last Admin: 03/21/18 22:04 Dose: 40 mg Pantoprazole Sodium (Protonix Inj) 40 mg IVP DAILY [facility] Last Admin: 03/21/18 09:24 Dose: 40 mg - Labs Labs: 03/21/18 05:50 03/21/18 05:50 PT 13.1 SECONDS (9.4-12.5) H 03/18/18 10:15 INR 1.14 03/18/18 10:15 APTT 23.7 Seconds (25.1-36.5) L 03/18/18 10:15 - Constitutional Appears: No Acute Distress - ENT Exam ENT Exam: Mucous Membranes Moist - Cardiovascular Exam Cardiovascular Exam: Bradycardia, +S1, +S2 - GI/Abdominal Exam GI & Abdominal Exam: Soft. absent: Tenderness - Extremities Exam Extremities Exam: Pedal Edema. 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 Patient also presenting with marked hyperglycemic accelerations. Follow up possible terminal extubation today Blood sugars ranging 75-298, and was hypoglycemic to 43 at 4 am Cont Levemir 10 units BID scheduled Replete electrolytes as needed Fingersticks Q4H and serial CMPs Continue care in the ICU Cont Antibiotics as per ID Case and plan discussed in detail with Dr De La Rosa. Trenton Nguyễn, PGY3
--- NOTE | 2018-03-22 08:06 | PN ---
Copied To: Adam Leyva MD Attending MD: Adam Leyva MD DATE: 03/22/2018(650am-740am) PULMONARY NOTE SUBJECTIVE: The patient remains lethargic and on the ventilator. She is not sedated - discussed with nurse. OBJECTIVE: VITAL SIGNS: Temperature is 99, pulse is 56, respirations 22/16, blood pressure 122/66. HEENT: Normocephalic, atraumatic. No JVD. CARDIOVASCULAR: Positive S1, S2. No S3 gallop. LUNGS: Decreased breath sounds at the bases. Minimal/less rhonchi. No wheezing. EXTREMITIES: Mild edema. No cyanosis or clubbing. GI: Abdomen is soft, nondistended. Bowel sounds are positive. SKIN: No acute rash. NEUROLOGIC: Exam limited at the present time. PERTINENT LABORATORY DATA: Chest x-ray was done this morning and reviewed. There remains a right lower lobe infiltrate. However, on today's film, there is also a new left basilar infiltrate. Arterial blood gas was done on PRVC 16, tidal volume 400, FiO2 60%. Results are pH 7.44, pCO2 of 35, pO2 of 107. IMPRESSION: 1. Recurrent respiratory failure. 2. Chronic respiratory insufficiency. 3. Advanced myotonic dystrophy. 4. Chronic obstructive pulmonary disease. 5. Mild bronchospasm. 6. Urosepsis. 7. Healthcare-associated pneumonia. PLAN: The patient remains on the ventilator. She remains lethargic. She is not sedated - discussed with nurse. I did discuss the case with the night nurse at length. The night nurse stated that the patient had an uneventful night. Temperatures are now resolving. I did review the chest x-ray as above. The right lower lobe infiltrate remains. However, as above, there is now a new left basilar infiltrate. Official results are pending. I would continue with the antibiotic coverage as per Infectious Disease. Input by Dr. Glynn is noted. Temperatures are now resolving. The leukocytosis is also resolving. I have also reviewed the arterial blood gas. There is now normalization of the pH. A moderate alveolar-arterial gradient remains. I will discuss further vent management with the ICU team later this morning.. On physical exam, there remains mild/less bronchospasm. I will continue with the current nebulizer treatments and low-dose intravenous steroids for now. Inputs by Endocrine, Cardiology and Neurology are also noted. The patient remains critically ill with overall poor prognosis. Input by Kylee Richardson (Palliative Care) is also noted. I will discuss the above with the entire ICU team in the next few moments. I will also discuss the above with Dr. Contreras later this morning. Adam Leyva MD MTDD
[2018-03-22] MEDS: Amiodarone 360 mg/D5W 200 ml 360 MG/200 ML BAG IV SCH ×2 (08:43→21:00)
[2018-03-22] MEDS: MethylPREDNISolone 40 mg Vial IVP SCH ×2 (09:44→21:42)
--- NOTE | 2018-03-22 10:13 | RAD ---
Date of service: 03/22/2018 HISTORY: f/u COMPARISON: 03/21/2018 FINDINGS: Endotracheal tube is low in position and terminates 1.1 cm proximal to the ryder. The right IJV line terminates at the cavoatrial junction LUNGS: No change in bilateral lower lobe airspace disease with air bronchogram in the right lower lobe. PLEURA: Bilateral layering pleural effusions, worse on the right, no pneumothorax apparent. CARDIOVASCULAR: Stable. OSSEOUS STRUCTURES: No significant abnormalities. VISUALIZED UPPER ABDOMEN: Normal. OTHER FINDINGS: None. IMPRESSION: No change in bilateral lower lobe pneumonia, worse on the right and layering pleural effusions. Endotracheal tube terminates 1.1 cm proximal to the ryder.
--- NOTE | 2018-03-22 10:42 | CP.CCUPN ---
<Major Almendarez - Last Filed: 03/22/18 10:36> CCU Subjective - Physician Review Events Since Last Encounter (Free Text): 03/22/18 10:36 Major Almendarez, PGY-1 ICU Progress Note Patient seen and examined at bedside this morning. Stopped lidocaine this morning, currently on amiodarone drip. Rewarming phase completed yesterday. Possible terminal extubation today per family; DNR in place. 12 point ROS limited due to non responsive state. Intubated not on sedation. CCU Objective - Vital Signs / Intake & Output Vital Signs (Last 4 hours): Vital Signs Temp Pulse BP Pulse Ox 03/22/18 08:00 99.0 F 03/22/18 07:00 99.0 F 46 L 122/66 100 Intake and Output (Last 8hrs): Intake & Output 03/21/18 03/22/18 03/22/18 22:59 06:59 14:59 Intake Total 1460 2054 165 Output Total 3100 850 Balance -1640 1204 165 Weight 157 lb 3.2 oz Intake: IV 1460 2054 165 D5 600 600 abx 600 amioderone 360 192 phenylephrine 408 Output: Urine 3100 850 Urethral (Carrera) 3100 850 Other: # Bowel Movements 1 - Physical Exam Head: Positive for: Atraumatic Pupils: Positive for: PERRL, Sluggish Mouth: Positive for: Dry Nose (Internal): Positive for: Normal Inspection Respiratory/Chest: Positive for: Clear to Auscultation. Negative for: Wheezes Cardiovascular: Positive for: Normal S1, S2, Peripheal Pulses Present Abdomen: Negative for: Distention, Guarding Upper Extremity: Positive for: Normal Inspection, NORMAL PULSES Lower Extremity: Positive for: Normal Inspection, NORMAL PULSES Neurological: Positive for: Other (unarousable and non responsive) Psychiatric: Negative for: Alert - Medications Active Medications: Active Medications Generic Name Dose Route Start Last Admin Trade Name Freq PRN Reason Stop Dose Admin Dextrose 0 ml 03/18/18 11:22 03/22/18 08:40 Dextrose 50% Inj IV 50 ml STAT PRN Administration Hypoglycemia Protocol Protocol Heparin Sodium (Porcine) 5,000 units 03/18/18 22:00 03/22/18 05:33 Heparin SC 5,000 units Q8 GABE Administration Protocol Dextrose 1,000 mls @ 0 mls/hr 03/18/18 11:22 Dextrose 5% In Water 1000 Ml IV .Q0M PRN Hypoglycemia Protocol Protocol Per Protocol Propofol 1,000 mg in 100 mls @ 1.817 mls/hr 03/18/18 14:23 03/19/18 09:25 Diprivan IV 0 mcg/kg/min .Q24H PRN 0 mls/hr TITRATE PER MD ORDER Titration Protocol 5 MCG/KG/MIN Amiodarone HCl/Dextrose 360 mg in 200 mls @ 16.667 mls/hr 03/18/18 20:15 08:43 Nexterone 360 Mg In D5w 200 Ml (Premix) IV 16.667 mls/hr .Q12H GABE Administration Protocol 0.5 MG/MIN Linezolid 600 mg in 300 mls @ 200 mls/hr 03/18/18 22:00 03/21/18 22:03 Zyvox 600mg/300ml D5w IVPB 03/25/18 22:01 200 mls/hr Q12 GABE Administration Protocol Phenylephrine HCl 40 mg/ 254 mls @ 38.1 mls/hr 03/19/18 07:41 03/22/18 06:17 Sodium Chloride IV 90 mcg/min .Q6H40M PRN 34.29 mls/hr TITRATE PER MD ORDER Administration Protocol 100 MCG/MIN Doxycycline Hyclate 100 mg/ 100 mls @ 100 mls/hr 03/19/18 12:45 03/22/18 08: 47 Sodium Chloride IVPB 100 mls/hr Q12 GABE Administration Protocol Lidocaine HCl/Dextrose 2,000 mg in 500 mls @ 15 mls/hr 03/20/18 17:10 07:00 Lidocaine 2 Grams In D5w IV 1 mg/min .Q24H PRN 15 mls/hr TITRATE PER MD ORDER Titration Protocol 1 MG/MIN Dextrose/Sodium Chloride 1,000 mls @ 50 mls/hr 03/21/18 09:21 03/22/18 06:14 Dextrose 5%/0.45% Ns 1000 Ml IV 50 mls/hr .Q20H GABE Administration Meropenem 50 mls @ 100 mls/hr 03/21/18 14:00 03/22/18 05:34 Merrem Iv 1 Gm Premix IVPB 03/29/18 14:01 100 mls/hr Q8 GABE Administration Protocol Insulin Detemir 20 unit 03/21/18 20:00 03/21/18 22:29 Levemir SC Not Given Q12 GABE Levalbuterol HCl 1.25 mg 03/19/18 08:00 03/22/18 07:45 Xopenex IH 1.25 mg [id number] GABE Administration Methylprednisolone 40 mg 03/20/18 10:00 03/22/18 09:44 Solu-Medrol IVP 40 mg Q12 GABE Administration Pantoprazole Sodium 40 mg 03/18/18 14:45 03/22/18 09:45 Protonix Inj IVP 40 mg DAILY GABE Administration - Patient Studies Lab Studies: Lab Studies 03/22/18 03/22/18 03/22/18 Range/Units 09:51 07:37 06:00 pCO2 35 (35-45) mm/Hg pO2 107.0 H (80-100) mm/Hg HCO3 23.8 (21-28) mmol/L ABG pH 7.44 (7.35-7.45) ABG Total CO2 24.9 (22-28) mmol.L ABG O2 Saturation 97.4 (95-98) % ABG O2 Content 15.2 (15-23) ML/dl ABG Base Excess 0.0 (-2.0-3.0) mmol/L ABG Hemoglobin 11.1 L (11.7-17.4) g/dL ABG Carboxyhemoglobin 0 L (0.5-1.5) % POC ABG HHb (Measured) 2.6 (0-5) % ABG Methemoglobin 0.7 (0.0-3.0) % ABG O2 Capacity 15.6 L (16-24) mL/dl Hgb O2 Saturation 96.6 (95.0-98.0) % FiO2 60.0 % POC Glucose (mg/dL) 89 58 L (65-110) mg/dL 03/22/18 03/22/18 03/21/18 Range/Units 03:56 00:08 20:11 pCO2 (35-45) mm/Hg pO2 (80-100) mm/Hg HCO3 (21-28) mmol/L ABG pH (7.35-7.45) ABG Total CO2 (22-28) mmol.L ABG O2 Saturation (95-98) % ABG O2 Content (15-23) ML/dl ABG Base Excess (-2.0-3.0) mmol/L ABG Hemoglobin (11.7-17.4) g/dL ABG Carboxyhemoglobin (0.5-1.5) % POC ABG HHb (Measured) (0-5) % ABG Methemoglobin (0.0-3.0) % ABG O2 Capacity (16-24) mL/dl Hgb O2 Saturation (95.0-98.0) % FiO2 % POC Glucose (mg/dL) 43 L 75 125 H (65-110) mg/dL 03/21/18 03/21/18 Range/Units 16:53 12:01 pCO2 (35-45) mm/Hg pO2 (80-100) mm/Hg HCO3 (21-28) mmol/L ABG pH (7.35-7.45) ABG Total CO2 (22-28) mmol.L ABG O2 Saturation (95-98) % ABG O2 Content (15-23) ML/dl ABG Base Excess (-2.0-3.0) mmol/L ABG Hemoglobin (11.7-17.4) g/dL ABG Carboxyhemoglobin (0.5-1.5) % POC ABG HHb (Measured) (0-5) % ABG Methemoglobin (0.0-3.0) % ABG O2 Capacity (16-24) mL/dl Hgb O2 Saturation (95.0-98.0) % FiO2 % POC Glucose (mg/dL) 170 H 298 H (65-110) mg/dL Laboratory Results - last 24 hr 03/21/18 03/21/18 03/21/18 12:01 16:53 20:11 pCO2 pO2 HCO3 ABG pH ABG Total CO2 ABG O2 Saturation ABG O2 Content ABG Base Excess ABG Hemoglobin ABG Carboxyhemoglobin POC ABG HHb (Measured) ABG Methemoglobin ABG O2 Capacity Hgb O2 Saturation FiO2 POC Glucose (mg/dL) 298 H 170 H 125 H 03/22/18 03/22/18 03/22/18 00:08 03:56 06:00 pCO2 35 pO2 107.0 H HCO3 23.8 ABG pH 7.44 ABG Total CO2 24.9 ABG O2 Saturation 97.4 ABG O2 Content 15.2 ABG Base Excess 0.0 ABG Hemoglobin 11.1 L ABG Carboxyhemoglobin 0 L POC ABG HHb (Measured) 2.6 ABG Methemoglobin 0.7 ABG O2 Capacity 15.6 L Hgb O2 Saturation 96.6 FiO2 60.0 POC Glucose (mg/dL) 75 43 L 03/22/18 03/22/18 07:37 09:51 pCO2 pO2 HCO3 ABG pH ABG Total CO2 ABG O2 Saturation ABG O2 Content ABG Base Excess ABG Hemoglobin ABG Carboxyhemoglobin POC ABG HHb (Measured) ABG Methemoglobin ABG O2 Capacity Hgb O2 Saturation FiO2 POC Glucose (mg/dL) 58 L 89 Fingerstick Blood Sugar Results: 58 Assessment/Plan - Assessment and Plan (Free Text) Assessment: This is a 58 year old female with PMH of chronic respiratory insufficiency, severe COPD, DM, multiple sclerosis, myotonic dystrophy, hypothyroidism, and renal cancer presenting to the ICU for management of acute hypoxic respiratory failure requiring ventilator complicated by cardiopulmonary assist and sepsis secondary to likely UTI. Patient is DNR. Possible terminal extubation today per family. Plan: Neuro: -currently intubated, not on sedation and patient not arousable and non responsive -DNR per cousin, Odilia Ferrer -EEG showed delta waves concerning for severe B/L cerebral dysfunction -CT head shows no evidence of acute infarct or intracranial hemorrhage -Neuro on consult, Dr. Wang Cardio: -maintain MAP>65 -will monitor vitals including HR and BP closely. BP currently in the 80-100s/50 -60s and HR 50-60s -Echo shows EF 55-60%, RVSP 34, no preicardial effusion. Trace TR and MR -On amiodarone drip. Lidocaine stopped today -On phenylephrine drip -Cardio consulted, Dr. Mcginnis Lungs: -vent settings of TV 400, PEEP 5, RR 16 and FiO2 60% -SaO2 >90% -supplementary O2 PRN -solumedrol 40mg q8, xopenex -CXR today shows no significant interval change from previous bibasilar subsegmental atelectasis -Pulm consulted, Dr. Leyva Renal: -maintain euvolemia -avoid nephrotoxic agents, hypochloremia -replace electrolytes as needed -dextrose 5% in 1/2NS @ 50 ml/hr -ABG today reads pH/pO2/pCO2/bicarb of 7.44/107/35/23.8. -U/A positive for leukocyte esterase, large bacteria, 20-25 WBC -I/O: 1.97L/3.1L. Negative balance of 1.13L Heme: -LE duplex shows no DVT in legs, limited study -DVT ppx with heparin 5k SC Endo: -maintain euglycemia -currently on levemir 20 units q12 -A1c 9.7 -Endo consulted, Dr. De La Rosa ID: -On aztreonam, doxy and zyvox -urine culture shows E coli, blood culture negative 3 days -ID consulted, Dr. Glynn -GI: -GI prophylaxis with protonix <See Musa - Last Filed: 03/22/18 11:32> CCU Objective - Vital Signs / Intake & Output Vital Signs (Last 4 hours): Vital Signs Temp 03/22/18 08:00 99.0 F Intake and Output (Last 8hrs): Intake & Output 03/21/18 03/22/18 03/22/18 22:59 06:59 14:59 Intake Total 1460 2054 165 Output Total 3100 850 Balance -1640 1204 165 Weight 157 lb 3.2 oz Intake: IV 1460 2054 165 D5 600 600 abx 600 amioderone 360 192 phenylephrine 408 Output: Urine 3100 850 Urethral (Carrera) 3100 850 Other: # Bowel Movements 1 - Medications Active Medications: Active Medications Generic Name Dose Route Start Last Admin Trade Name Freq PRN Reason Stop Dose Admin Dextrose 0 ml 03/18/18 11:22 03/22/18 08:40 Dextrose 50% Inj IV 50 ml STAT PRN Administration Hypoglycemia Protocol Protocol Heparin Sodium (Porcine) 5,000 units 03/18/18 22:00 03/22/18 05:33 Heparin SC 5,000 units Q8 GABE Administration Protocol Dextrose 1,000 mls @ 0 mls/hr 03/18/18 11:22 Dextrose 5% In Water 1000 Ml IV .Q0M PRN Hypoglycemia Protocol Protocol Per Protocol Propofol 1,000 mg in 100 mls @ 1.817 mls/hr 03/18/18 14:23 03/19/18 09:25 Diprivan IV 0 mcg/kg/min .Q24H PRN 0 mls/hr TITRATE PER MD ORDER Titration Protocol 5 MCG/KG/MIN Amiodarone HCl/Dextrose 360 mg in 200 mls @ 16.667 mls/hr 03/18/18 20:15 08:43 Nexterone 360 Mg In D5w 200 Ml (Premix) IV 16.667 mls/hr .Q12H GABE Administration Protocol 0.5 MG/MIN Linezolid 600 mg in 300 mls @ 200 mls/hr 03/18/18 22:00 03/21/18 22:03 Zyvox 600mg/300ml D5w IVPB 03/25/18 22:01 200 mls/hr Q12 GABE Administration Protocol Phenylephrine HCl 40 mg/ 254 mls @ 38.1 mls/hr 03/19/18 07:41 03/22/18 06:17 Sodium Chloride IV 90 mcg/min .Q6H40M PRN 34.29 mls/hr TITRATE PER MD ORDER Administration Protocol 100 MCG/MIN Doxycycline Hyclate 100 mg/ 100 mls @ 100 mls/hr 03/19/18 12:45 03/22/18 08: 47 Sodium Chloride IVPB 100 mls/hr Q12 GABE Administration Protocol Lidocaine HCl/Dextrose 2,000 mg in 500 mls @ 15 mls/hr 03/20/18 17:10 07:00 Lidocaine 2 Grams In D5w IV 1 mg/min .Q24H PRN 15 mls/hr TITRATE PER MD ORDER Titration Protocol 1 MG/MIN Dextrose/Sodium Chloride 1,000 mls @ 50 mls/hr 03/21/18 09:21 03/22/18 06:14 Dextrose 5%/0.45% Ns 1000 Ml IV 50 mls/hr .Q20H GABE Administration Meropenem 50 mls @ 100 mls/hr 03/21/18 14:00 03/22/18 05:34 Merrem Iv 1 Gm Premix IVPB 03/29/18 14:01 100 mls/hr Q8 GABE Administration Protocol Insulin Detemir 20 unit 03/21/18 20:00 03/21/18 22:29 Levemir SC Not Given Q12 GABE Levalbuterol HCl 1.25 mg 03/19/18 08:00 03/22/18 07:45 Xopenex IH 1.25 mg [id number] GABE Administration Methylprednisolone 40 mg 03/20/18 10:00 03/22/18 09:44 Solu-Medrol IVP 40 mg Q12 GABE Administration Pantoprazole Sodium 40 mg 03/18/18 14:45 03/22/18 09:45 Protonix Inj IVP 40 mg DAILY GABE Administration - Patient Studies Lab Studies: Lab Studies 03/22/18 03/22/18 03/22/18 Range/Units 09:51 07:37 06:00 pCO2 35 (35-45) mm/Hg pO2 107.0 H (80-100) mm/Hg HCO3 23.8 (21-28) mmol/L ABG pH 7.44 (7.35-7.45) ABG Total CO2 24.9 (22-28) mmol.L ABG O2 Saturation 97.4 (95-98) % ABG O2 Content 15.2 (15-23) ML/dl ABG Base Excess 0.0 (-2.0-3.0) mmol/L ABG Hemoglobin 11.1 L (11.7-17.4) g/dL ABG Carboxyhemoglobin 0 L (0.5-1.5) % POC ABG HHb (Measured) 2.6 (0-5) % ABG Methemoglobin 0.7 (0.0-3.0) % ABG O2 Capacity 15.6 L (16-24) mL/dl Hgb O2 Saturation 96.6 (95.0-98.0) % FiO2 60.0 % POC Glucose (mg/dL) 89 58 L (65-110) mg/dL 03/22/18 03/22/18 03/21/18 Range/Units 03:56 00:08 20:11 pCO2 (35-45) mm/Hg pO2 (80-100) mm/Hg HCO3 (21-28) mmol/L ABG pH (7.35-7.45) ABG Total CO2 (22-28) mmol.L ABG O2 Saturation (95-98) % ABG O2 Content (15-23) ML/dl ABG Base Excess (-2.0-3.0) mmol/L ABG Hemoglobin (11.7-17.4) g/dL ABG Carboxyhemoglobin (0.5-1.5) % POC ABG HHb (Measured) (0-5) % ABG Methemoglobin (0.0-3.0) % ABG O2 Capacity (16-24) mL/dl Hgb O2 Saturation (95.0-98.0) % FiO2 % POC Glucose (mg/dL) 43 L 75 125 H (65-110) mg/dL 03/21/18 03/21/18 Range/Units 16:53 12:01 pCO2 (35-45) mm/Hg pO2 (80-100) mm/Hg HCO3 (21-28) mmol/L ABG pH (7.35-7.45) ABG Total CO2 (22-28) mmol.L ABG O2 Saturation (95-98) % ABG O2 Content (15-23) ML/dl ABG Base Excess (-2.0-3.0) mmol/L ABG Hemoglobin (11.7-17.4) g/dL ABG Carboxyhemoglobin (0.5-1.5) % POC ABG HHb (Measured) (0-5) % ABG Methemoglobin (0.0-3.0) % ABG O2 Capacity (16-24) mL/dl Hgb O2 Saturation (95.0-98.0) % FiO2 % POC Glucose (mg/dL) 170 H 298 H (65-110) mg/dL Laboratory Results - last 24 hr 03/21/18 03/21/18 03/21/18 12:01 16:53 20:11 pCO2 pO2 HCO3 ABG pH ABG Total CO2 ABG O2 Saturation ABG O2 Content ABG Base Excess ABG Hemoglobin ABG Carboxyhemoglobin POC ABG HHb (Measured) ABG Methemoglobin ABG O2 Capacity Hgb O2 Saturation FiO2 POC Glucose (mg/dL) 298 H 170 H 125 H 03/22/18 03/22/18 03/22/18 00:08 03:56 06:00 pCO2 35 pO2 107.0 H HCO3 23.8 ABG pH 7.44 ABG Total CO2 24.9 ABG O2 Saturation 97.4 ABG O2 Content 15.2 ABG Base Excess 0.0 ABG Hemoglobin 11.1 L ABG Carboxyhemoglobin 0 L POC ABG HHb (Measured) 2.6 ABG Methemoglobin 0.7 ABG O2 Capacity 15.6 L Hgb O2 Saturation 96.6 FiO2 60.0 POC Glucose (mg/dL) 75 43 L 03/22/18 03/22/18 07:37 09:51 pCO2 pO2 HCO3 ABG pH ABG Total CO2 ABG O2 Saturation ABG O2 Content ABG Base Excess ABG Hemoglobin ABG Carboxyhemoglobin POC ABG HHb (Measured) ABG Methemoglobin ABG O2 Capacity Hgb O2 Saturation FiO2 POC Glucose (mg/dL) 58 L 89 Attending/Attestation - Attestation I have personally seen and examined this patient.: Yes I have fully participated in the care of the patient.: Yes I have reviewed all pertinent clinical information: Yes Notes (Text): 03/22/18 11:29 The patient was seen and examined at the bedside. Patient care was discussed with resident Medical records, lab studies, and imaging were reviewed and management issues were discussed and formulated. Agree with above treatment plans as outlined in 's note with addition of the following: Cardiopulmonary Arrest \ VTach \ Acute Respiratory Failure \ Hypoxemia \ Septic shock \ PNA \UTI \ DM 2 \ Hypothermia protocol \ COPD \ Anoxic brain injury \ ho Myotonic dystrophy \ -s\p cardiopulmonary arrest in ED; s\p hypothermia protocol -hemodynamic monitoring to maintain MAP>65; continue Amiodarone as per cardiology team -mechanical ventilation to maintain Spo2>90 Pao2>60; current mode PRVC -monitor for TV 6ml\kg IBW and plateau pressure <30 -ABG reviewed and CXR reviewed -continue nebs and steroids -Continue broad spectrum Abx as per ID team ; f\u cultures -f\u Bun\Cr and U\o; -continue insulin and monitor BGM -NPO diet and aspiration precautions -neurology team f\u for anoxic brain injury -DVT \ PUD prophylaxis -Pt is DNR as per family wishes. Pt's family is considering withdrawal of care CCM time 33min
[2018-03-22] MEDS: Insulin Detemir 100 units/ml Vial (Levemir) SC SCH (11:32)
[2018-03-22] MEDS: Linezolid 600 mg in D5W 300 ml 600 MG/300 ML BAG IVPB SCH ×2 (11:40→21:43)
[2018-03-22] MEDS ORDERED: Dextrose 50% SYRINGE Inj (50 ml) IVP ONE (12:03)
[2018-03-22 12:26] LABS: BASO # 0.01 K/mm3 (0.0-2.0); BASO % 0.1 % (0.0-3.0); GRAN # 13.03 (1.4-6.5); GRAN % 90.3 % (50.0-68.0); HEMOGLOBIN 11.1 g/dL (12.0-16.0); LYMPH # 0.9 (1.2-3.4); LYMPH % 6.3 % (22.0-35.0); MEAN CELL VOLUME 85.3 fl (80.0-105.0); MEAN CORPUSCULAR HEMOGLOBIN 28.1 pg (25.0-35.0); MEAN CORPUSCULAR HGB CONC 32.9 g/dl (31.0-37.0); MEAN PLATELET VOLUME 13.2 fl (7.0-11.0); MONO # 0.5 (0.1-0.6); MONO % 3.3 % (1.0-6.0); PLATELET COUNT 205 10^3/uL (120.0-450.0); RBC 3.95 10^6/uL (3.5-6.1); RED CELL DISTRIBUTION WIDTH 14.9 % (11.5-14.5); WHITE BLOOD COUNT 14.4 10^3/ul (4.5-11.0)
[2018-03-22 12:34] LABS: ALBUMIN 2.6 g/dL (3.0-4.8); ALT/SGPT 490 U/L (7-56); AST/SGOT 397 U/L (14-36); BLOOD UREA NITROGEN 14 mg/dL (7-21); CALCIUM 8.8 mg/dL (8.4-10.5); GFR AFRICAN-AMERICAN > 60; GFR NON-AFRICAN AMERICAN > 60
--- NOTE | 2018-03-22 12:46 | CP.PCM.PN ---
Subjective - Date & Time of Evaluation Date of Evaluation: 03/22/18 Time of Evaluation: 10:50 - Subjective Subjective: Patient continues to be on the ventilator, still having low grade fevers overnight. Objective - Vital Signs/Intake and Output Vital Signs (last 24 hours): Temp Pulse Resp BP Pulse Ox 99.0 F 46 L 8 L 122/66 100 03/22/18 07:00 03/22/18 07:00 03/21/18 01:00 03/22/18 07:00 03/22/18 07:00 Intake and Output: 03/22/18 03/22/18 06:59 18:59 Intake Total 2554 165 Output Total 1850 Balance 704 165 - Medications Medications: Current Medications Dextrose (Dextrose 50% Inj) 0 ml IV STAT PRN; Protocol PRN Reason: Hypoglycemia Protocol Last Admin: 03/22/18 08:40 Dose: 50 ml Heparin Sodium (Porcine) (Heparin) 5,000 units SC Q8 GABE PRN Reason: Protocol Last Admin: 03/22/18 05:33 Dose: 5,000 units Dextrose (Dextrose 5% In Water 1000 Ml) 1,000 mls @ 0 mls/hr IV .Q0M PRN; Protocol; Per Protocol PRN Reason: Hypoglycemia Protocol Propofol (Diprivan) 1,000 mg in 100 mls @ 1.817 mls/hr IV .Q24H PRN; Protocol; 5 MCG/KG/MIN PRN Reason: TITRATE PER MD ORDER Last Titration: 03/19/18 09:25 Dose: 0 mcg/kg/min, 0 mls/hr Amiodarone HCl/Dextrose (Nexterone 360 Mg In D5w 200 Ml (Premix)) 360 mg in 200 mls @ 16.667 mls/hr IV .Q12H GABE; 0.5 MG/MIN PRN Reason: Protocol Last Admin: 03/22/18 08:43 Dose: 16.667 mls/hr Linezolid (Zyvox 600mg/300ml D5w) 600 mg in 300 mls @ 200 mls/hr IVPB Q12 GABE PRN Reason: Protocol Stop: 03/25/18 22:01 Last Admin: 03/21/18 22:03 Dose: 200 mls/hr Phenylephrine HCl 40 mg/ (Sodium Chloride) 254 mls @ 38.1 mls/hr IV .Q6H40M PRN ; Protocol; 100 MCG/MIN PRN Reason: TITRATE PER MD ORDER Last Admin: 03/22/18 06:17 Dose: 90 mcg/min, 34.29 mls/hr Doxycycline Hyclate 100 mg/ (Sodium Chloride) 100 mls @ 100 mls/hr IVPB Q12 GAEB PRN Reason: Protocol Last Admin: 03/22/18 08:47 Dose: 100 mls/hr Lidocaine HCl/Dextrose (Lidocaine 2 Grams In D5w) 2,000 mg in 500 mls @ 15 mls/ hr IV .Q24H PRN; Protocol; 1 MG/MIN PRN Reason: TITRATE PER MD ORDER Last Titration: 03/22/18 07:00 Dose: 1 mg/min, 15 mls/hr Dextrose/Sodium Chloride (Dextrose 5%/0.45% Ns 1000 Ml) 1,000 mls @ 50 mls/hr IV .Q20H [facility] Last Admin: 03/22/18 06:14 Dose: 50 mls/hr Meropenem (Merrem Iv 1 Gm Premix) 50 mls @ 100 mls/hr IVPB Q8 GABE PRN Reason: Protocol Stop: 03/29/18 14:01 Last Admin: 03/22/18 05:34 Dose: 100 mls/hr Insulin Detemir (Levemir) 20 unit SC Q12 [facility] Last Admin: 03/21/18 22:29 Dose: Not Given Levalbuterol HCl (Xopenex) 1.25 mg IH [id number] [facility] Last Admin: 03/22/18 07:45 Dose: 1.25 mg Methylprednisolone (Solu-Medrol) 40 mg IVP Q12 [facility] Last Admin: 03/22/18 09:44 Dose: 40 mg Pantoprazole Sodium (Protonix Inj) 40 mg IVP DAILY [facility] Last Admin: 03/22/18 09:45 Dose: 40 mg - Labs Labs: 03/21/18 05:50 03/21/18 05:50 PT 13.1 SECONDS (9.4-12.5) H 03/18/18 10:15 INR 1.14 03/18/18 10:15 APTT 23.7 Seconds (25.1-36.5) L 03/18/18 10:15 - Constitutional Appears: Chronically Ill, Other (intubated, sedated) - Head Exam Head Exam: NORMAL INSPECTION - ENT Exam Additional comments: ET tube in place - Respiratory Exam Respiratory Exam: Decreased Breath Sounds - Cardiovascular Exam Cardiovascular Exam: +S1, +S2 - GI/Abdominal Exam GI & Abdominal Exam: Soft. absent: Tenderness Assessment and Plan - Assessment and Plan (Free Text) Plan: Assessment severe sepsis with VDRF due to urinary tract infection with ESBL E. coli, R/O HCAP with possible gram positive cocci or gram negative bacilli or atypical organisms history of acute bronchitis history of asymptomatic bacteriuria with gram negative bacilli history of sepsis secondary to E. coli urinary tract infection, bilateral healthcare-associated pneumonia history of myotonic dystrophy hypothyroidism history of tracheostomy and PEG tube placement S/P ileostomy Anal cancer S/P resection Plan continue Zyvox, Merrem and Doxycycline day 4 - will need at least 10-14 days of Merrem, 4-7 days of Zyvox and Doxycycline will continue to monitor clinically overall prognosis is poor
--- NOTE | 2018-03-22 13:15 | PN ---
Copied To: Venancio Mcginnis MD Attending MD: Venancio Mcginnis MD DATE: 03/22/2018 SUBJECTIVE: The patient remains on a ventilator. PHYSICAL EXAMINATION: VITAL SIGNS: Blood pressure is 122/66, heart rates in the 50s. NECK: Negative JVD. LUNGS: Decreased breath sounds. HEART: S1 and S2. EXTREMITIES: Without edema. LABORATORY DATA: Hemoglobin is 11.1. Chemistries: The potassium was not measured today. Magnesium is not measured today. IMPRESSION: 1. Respiratory failure. 2. Ventricular tachycardia. 3. Hypokalemia. 4. Cea-[id number] myocardial infarction after rest. PLAN: Given these findings, we will need to measure the potassium and magnesium. We will continue her amiodarone and change management director to p.o. Venancio Mcginnis MD : 03/22/2018 12:45:46
--- NOTE | 2018-03-22 13:30 | PN ---
Copied To: Tom Contreras DO Attending MD: Tom Contreras DO DATE: 03/22/2018 SUBJECTIVE: She is on the ventilator in the Intensive Care Unit. I understand they are going to extubate her today. MEDICATIONS: She is on dextrose, Diprivan, doxycycline, heparin, lidocaine, Merrem, Nexterone, phenylephrine, Protonix, Solu-Medrol, Xopenex and Zyvox. PHYSICAL EXAMINATION: VITAL SIGNS: She has a 99 temp, 46 pulse, 122/66 blood pressure, 100% O2 sat. HEENT: Head is atraumatic, normocephalic. HEART: Regular rate. LUNGS: Decreased breath sounds bilaterally. ABDOMEN: Soft. EXTREMITIES: Mildly contracted. LABORATORY DATA: She has a 17.1 white count yesterday, 11 hemoglobin, 32.8 hematocrit with 256 platelets. Last blood sugar was 58. Last labs on the chemistry was 130 sodium, potassium 3.6, BUN 16, creatinine 0.6, GFR is greater than 60, sugar is 214, calcium is 7.8. ASSESSMENT AND PLAN: She will be extubated today. We will see how she does. She has multiple issues respiratory failure, sepsis, urinary tract infection. This is a decision made by family. Tom Contreras DO MTDD
--- NOTE | 2018-03-22 13:32 | PN ---
Copied To: Shauna De La Rosa MD Attending MD: Shauna De La Rosa MD DATE: 03/22/2018 ENDOCRINOLOGY FOLLOWUP LOCATION: CCU 129, room 5. This is a 58-year-old female with recent acute respiratory failure, currently endotracheally intubated and unresponsive and is currently on amiodarone and lidocaine infusions as given and is also being followed closely for metabolic management. Her glycemic levels have been have been low normal today as noted with the glucose values ranging from 58 to 89 mg/dL. Her chemistry showed a BUN of 14, sodium 143, potassium 2.7, chloride 109, CO2 29, glucose 40 and creatinine 0.8. So at this time, we will discontinue the basal insulin given as Levemir at 20 units every 12 hours as given and continue only the low-dose correction scale using Regular insulin as ordered. We will observe her glycemic fluctuations and determine the need to resume her basal insulin accordingly. There are no tube feedings at this time and the patient has been opted by , made a DNR by the family as noted. We will obtain serial chemistries and supplement accordingly as needed. We will follow with you. Shauna De La Rosa MD
[2018-03-22 13:35] LABS: LYMPHOCYTE 3 % (22.0-35.0); NEUTROPHIL 97 % (50.0-70.0)
[2018-03-22 13:36] LABS: PLATELET ESTIMATE NORMAL (NORMAL)
[2018-03-22] MEDS ORDERED: Potassium Chloride 20 mEq ER Tab PO STA (14:46)
[2018-03-22] MEDS ORDERED: Potassium Phosphate 3 mmol/ml Inj IVPB ONE (14:46)
[2018-03-22] MEDS ORDERED: Magnesium 2 gm/50 ml NS 2 GM/50 ML BAG IVPB ONE (14:46)
[2018-03-22] MEDS ORDERED: Potassium Phosphate 30 MMOLE in Sodium Chloride 0.9% 250 ML IVPB ONE (15:00)
[2018-03-22 23:08] LABS: ALBUMIN 2.5 g/dL (3.0-4.8); ALT/SGPT 441 U/L (7-56); AST/SGOT 291 U/L (14-36); BLOOD UREA NITROGEN 15 mg/dL (7-21); CALCIUM 8.2 mg/dL (8.4-10.5); GFR AFRICAN-AMERICAN > 60; GFR NON-AFRICAN AMERICAN > 60
[2018-03-23] MEDS: Levalbuterol 1.25 MG/3 ML Inhal Soln UD IH SCH ×4 (01:56→19:35)
[2018-03-23 05:22] LABS: ARTERIAL BLOOD GAS HCO3 21.1 mmol/L (21-28); ARTERIAL BLOOD GAS HEMOGLOBIN 11.5 g/dL (11.7-17.4); ARTERIAL BLOOD GAS O2 CAPACITY 16.3 mL/dl (16-24); ARTERIAL BLOOD GAS O2 SAT 98.2 % (95-98); ARTERIAL BLOOD GAS PCO2 31 mm/Hg (35-45); ARTERIAL BLOOD GAS PH 7.44 (7.35-7.45); ARTERIAL BLOOD GAS TCO2 22.1 mmol.L (22-28)
[2018-03-23] MEDS: Meropenem IV 1 gm in NS 50 ML IVPB SCH ×3 (05:50→21:10)
[2018-03-23 06:36] LABS: HEMOGLOBIN 11.5 g/dL (12.0-16.0); MEAN CELL VOLUME 85.6 fl (80.0-105.0); MEAN CORPUSCULAR HEMOGLOBIN 28.6 pg (25.0-35.0); MEAN CORPUSCULAR HGB CONC 33.4 g/dl (31.0-37.0); MEAN PLATELET VOLUME 12.7 fl (7.0-11.0); RBC 4.02 10^6/uL (3.5-6.1); RED CELL DISTRIBUTION WIDTH 15.1 % (11.5-14.5); WHITE BLOOD COUNT 11.3 10^3/ul (4.5-11.0)
[2018-03-23 06:57] LABS: ALBUMIN 2.5 g/dL (3.0-4.8); ALT/SGPT 382 U/L (7-56); AST/SGOT 248 U/L (14-36); BLOOD UREA NITROGEN 17 mg/dL (7-21); CALCIUM 8.3 mg/dL (8.4-10.5); GFR AFRICAN-AMERICAN > 60; GFR NON-AFRICAN AMERICAN 57
[2018-03-23] MEDS: Amiodarone 360 mg/D5W 200 ml 360 MG/200 ML BAG IV SCH ×2 (09:05→20:40)
[2018-03-23] MEDS: MethylPREDNISolone 40 mg Vial IVP SCH ×2 (09:30→21:12)
--- NOTE | 2018-03-23 09:35 | PN ---
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 She continues to require phenylephrine as well as amiodarone. The patient has hypoxic respiratory failure and talked with family members about poor prognosis and the patient is a DNR at this time and discussions have been made as per the family. They may want a possible terminal extubation, but that would be a family decision. PHYSICAL EXAMINATION: VITAL SIGNS: Note that her temperature is 99.7, her pulse is 63, respirations are 14 and BP is 113/61, O2 saturation is 99%. HEENT: Head is atraumatic, normocephalic. Eyes reactive to light. Ears, nose and throat seemed to be within normal limits. NECK: Supple. No JVD. No thyroid enlargement or lymph nodes. HEART: Has regular rate and rhythm. Normal S1, S2. LUNGS: Reveal bilateral rhonchi. ABDOMEN: Soft. Decreased bowel sounds. GENITALIA: Deferred. RECTAL: Deferred. MUSCULOSKELETAL: No joint deformities. EXTREMITIES: Reveal 1+ lower extremity edema. NEUROLOGICAL: The patient is unresponsive on the ventilator. DATA: As far as her laboratories are concerned, her white count is 11.3, hemoglobin is 11.5, hematocrit 34.4 with platelets of 174,000. Arterial blood gas reveals a pH of 7.44, pCO2 of 31, pO2 of 139. The patient's sodium is 136, potassium 5, chloride 106, CO2 of 22 with a BUN of 17, creatinine of 1 and a glucose of 169. Chest x-ray is pending. IMPRESSION: As far as my impression, this patient has anoxic encephalopathy with hypoxic respiratory failure requiring ventilator support. The patient is on ventilator support. The patient is DNR as per family. She has a history of severe chronic obstructive pulmonary disease, diabetes, hypothyroidism, multiple sclerosis. Note that the patient does have sepsis with some hypotension. PLAN: As far as our plan, we will continue with ventilator support and be aggressive with pulmonary toilet. The patient will continue with amiodarone and is on doxycycline for antibiotics, heparin subcu. She is on meropenem as well and phenylephrine. The patient is getting Protonix and Solu-Medrol. We will continue to follow closely and treat aggressively along with the other consultants and the primary care doctor. Aashish Saeed MD
--- NOTE | 2018-03-23 09:42 | PN ---
Copied To: Dallin Glynn MD Attending MD: Dallin Glynn MD DATE: 03/23/2018 SUBJECTIVE: The patient is seen earlier today in [facility], bed 5. She is intubated, on a vent; unresponsive; low-grade fevers; no acute changes overnight as per nurse. OBJECTIVE: VITAL SIGNS: On exam, temperature is 99.7, blood pressure is 113/60, respiratory rate of 18, heart rate of 58. HEENT: Examination is unremarkable. NECK: Supple. LUNGS: Have decreased breath sounds. HEART: Normal S1, S2. ABDOMEN: Soft, nontender. No organomegaly. No rebound. DATA: Laboratory examination reveals a white count 11,300, hemoglobin 11, BUN of 17, creatinine of 1. LFTs are elevated and Microbiology reveals E. Coli in the urine. The blood cultures are negative. The nasal MRSA is negative. The patient is on Solu-Medrol, doxycycline, linezolid and meropenem. ASSESSMENT AND PLAN: This is a 58-year-old female with severe sepsis with ventilatory dependent respiratory failure due to be extended spectrum beta lactamases Escherichia coli urinary tract infection and must rule out healthcare-associated pneumonia with possible gram-positive cocci, possible gram-negative aydee and atypical history of bronchitis and history of myotonic dystrophy, hypothyroidism, history of tracheostomy and tracheal placement, day #5 of Zyvox, doxycycline, meropenem. We will discontinue the Zyvox since the nasal MRSA screen is negative. Dallin Glynn MD
--- NOTE | 2018-03-23 09:47 | RAD ---
Date of service: HISTORY: COMPARISON: Comparison 03/22 2018 FINDINGS: In situ ETT, the tip of which lies approximately 3.6 cm above ryder. . No change right IJ central line with tip in the SVC LUNGS: Central pulmonary vasculature appears slightly less congested bibasilar opacities right greater than left likely representing some combination of atelectasis/infiltrate and effusion. PLEURA: No significant pleural effusion identified, no pneumothorax apparent. CARDIOVASCULAR: Normal. OSSEOUS STRUCTURES: No significant abnormalities. VISUALIZED UPPER ABDOMEN: Normal. OTHER FINDINGS: None. IMPRESSION: ETT as described. Central pulmonary vasculature appears slightly less congested bibasilar opacities right greater than left likely representing some combination of atelectasis/infiltrate and effusion.
--- NOTE | 2018-03-23 12:56 | PN ---
Copied To: Shauna De La Rosa MD Attending MD: Shauna De La Rosa MD DATE: 03/23/2018 ENDOCRINOLOGY FOLLOWUP NOTE LOCATION: CCU 129, room 5. SUBJECTIVE: This is a 58-year-old female with recent acute respiratory failure and remains intubated and unresponsive at this time, with recent bouts of ventricular tachycardia, currently on amiodarone and lidocaine infusion as given and is also being followed closely for metabolic management. Her glycemic levels are much improved at this time and has been taken off all basal insulin as previously ordered. Her latest chemistries today showed a BUN of 17, sodium 136, potassium 5, chloride 106, CO2 of 22, glucose 169, and creatinine 1. So, at this time, we will continue only the low-dose correction scale using regular insulin as given. We will hold off the resumption of basal insulin given twice daily as her glycemic levels are near optimal at this time. She has a very poor prognosis and has deteriorated both clinically and hemodynamically and has been made DNR by the family. We will follow. Shauna De La Rosa MD
--- NOTE | 2018-03-23 14:06 | PN ---
Copied To: Nayan Disla MD Attending MD: Nayan Disla MD DATE: 03/23/2018 PULMONARY PROGRESS NOTE SUBJECTIVE: The patient was seen and examined in intensive care unit. She remains ventilator dependent. She is receiving intravenous antibiotics, doxycycline and meropenem. She is also on intravenous steroids and nebulized Xopenex. PHYSICAL EXAMINATION: HEAD, EAR, NOSE AND THROAT: She is orally intubated. Normocephalic. NECK: Supple with no jugular vein distentions. No adenopathy. CARDIOVASCULAR: S1, S2. No S3. Tachycardia. PULMONARY: Diminished breath sounds at both lung bases with few scattered rhonchi. No wheezing. GASTROINTESTINAL: Soft, nontender. No organomegaly. EXTREMITIES: 1+ pedal edema. SKIN: No acute skin rash. NEUROLOGIC: Unable to evaluate since patient is on propofol drip. ASSESSMENT: 1. Acute respiratory failure. 2. Severe chronic obstructive pulmonary disease. 3. Diabetes mellitus. 4. Hypothyroidism. 5. Multiple sclerosis. 6. Sepsis syndrome. PLAN: Discussed with ICU team. Patient is currently on tidal volume of 400 and FiO2 is down to 40%, the respiratory rate was brought down to 14 because of mild respiratory alkalosis. Her oxygenation has improved and gas exchange has improved as well. Patient will be tried on weaning. She is status post CPR, so we will proceed slowly but with improved blood gas, weaning will be initiated. We will follow closely. Nayan Disla MD MTDD
--- NOTE | 2018-03-23 14:24 | PN ---
Copied To: Tom Contreras DO Attending MD: Tom Contreras DO DATE: 03/23/2018 I saw Cyndi in the Intensive Care Unit. She is still on the ventilator. I discussed with the family that they will terminally extubate her, that was what I understood, they have not made the call to the hospital, she is out of the ICU and is still talking with family members to make that decision, but they agree with that from what they told me. She is on dextrose, Diprivan, doxycycline, heparin, lidocaine, Merrem, Nexterone, phenylephrine, Protonix, Solu-Medrol and Xopenex. OBJECTIVE: VITAL SIGNS: She has a 99.5 temperature, 60 pulse, 103/53 blood pressure, 14 respiratory rate, 100% down to 97% O2 sat. HEENT: Head is atraumatic, normocephalic. HEART: Regular rate. LUNGS: Decreased breath sounds, but clear. ABDOMEN: Soft. EXTREMITIES: No edema. DATA: She has 11.3 white count, better; 11.5 hemoglobin; 34.4 hematocrit with 174 platelets. CBC, it is a little better. Last lactate was 3.8. Sodium 136, potassium 5, BUN 17, creatinine 1, GFR is 57, sugar is 169, calcium 8.3, phosphorus 3.5, magnesium 2.2, total bili is 0.2, AST is 248, ALT is 382 and alk phos 125, coming down. Total protein is 5. The Microbiology showed E. coli in the urine. She is being seen by numerous doctors, Infectious Disease, Waste Treatment Operator, Endocrinology, Cardiology. Chest x-ray that was done today showed central pulmonary vascular appears slightly less congested, bibasilar opacity is right greater than left. We will continue with aggressive treatment and care until family makes a decision. She has got numerous problems of acute respiratory failure, myotonic dystrophy, UTI. Tom Contreras DO MTDD
[2018-03-23] MEDS ORDERED: Phenylephrine 10 mg/ml Inj ONE (22:54)
[2018-03-24] MEDS: Levalbuterol 1.25 MG/3 ML Inhal Soln UD IH SCH ×4 (02:30→20:27)
[2018-03-24 06:20] LABS: ARTERIAL BLOOD GAS HCO3 21.5 mmol/L (21-28); ARTERIAL BLOOD GAS HEMOGLOBIN 10.5 g/dL (11.7-17.4); ARTERIAL BLOOD GAS O2 CAPACITY 14.9 mL/dl (16-24); ARTERIAL BLOOD GAS O2 CONTENT 14.6 ML/dl (15-23); ARTERIAL BLOOD GAS O2 SAT 97.9 % (95-98); ARTERIAL BLOOD GAS PCO2 31 mm/Hg (35-45); ARTERIAL BLOOD GAS PH 7.45 (7.35-7.45); ARTERIAL BLOOD GAS TCO2 22.5 mmol.L (22-28)
[2018-03-24 06:23] LABS: HEMOGLOBIN 10.4 g/dL (12.0-16.0); MEAN CELL VOLUME 86.8 fl (80.0-105.0); MEAN CORPUSCULAR HGB CONC 32.2 g/dl (31.0-37.0); PLATELET COUNT 170 10^3/uL (120.0-450.0); RBC 3.72 10^6/uL (3.5-6.1); RED CELL DISTRIBUTION WIDTH 15.5 % (11.5-14.5)
[2018-03-24] MEDS: Meropenem IV 1 gm in NS 50 ML IVPB SCH ×3 (06:58→22:27)
[2018-03-24 07:16] LABS: ALBUMIN 2.2 g/dL (3.0-4.8); ALT/SGPT 262 U/L (7-56); AST/SGOT 127 U/L (14-36); BLOOD UREA NITROGEN 20 mg/dL (7-21); CALCIUM 8.6 mg/dL (8.4-10.5); GFR AFRICAN-AMERICAN > 60; GFR NON-AFRICAN AMERICAN > 60
--- NOTE | 2018-03-24 09:04 | RAD ---
Date of service: 03/24/2018 HISTORY: f/u COMPARISON: Comparison chest 03/23/2018 FINDINGS: In situ ETT, tip of which lies approximately 1.8 cm above ryder. . No change right IJ central line with tip in the SVC LUNGS: Slightly improved central pulmonary vascular congestion however there appear to be some residual atelectasis and or infiltrate changes both lung bases right greater than left. Suspect small bilateral effusions right larger than left PLEURA: No significant pleural effusion identified, no pneumothorax apparent. CARDIOVASCULAR: Normal. OSSEOUS STRUCTURES: No significant abnormalities. VISUALIZED UPPER ABDOMEN: Clips right upper quadrant of the abdomen consistent with prior cholecystectomy OTHER FINDINGS: None. IMPRESSION: Slightly improved central pulmonary vascular congestion however there appear to be some residual atelectasis and or infiltrate changes both lung bases right greater than left. Suspect small bilateral effusions right larger than left
--- NOTE | 2018-03-24 09:14 | PN ---
Copied To: Dallin Glynn MD Attending MD: Dallin Glynn MD DATE: 03/24/2018 SUBJECTIVE: The patient is seen earlier today in [facility], bed 5. The patient remains intubated on a ventilator. Overall unchanged. No events overnight. PHYSICAL EXAMINATION: VITAL SIGNS: On exam, temperature is 100, blood pressure is 97/46, respiratory rate on a vent, the heart rate of 50. HEENT: Examination of HEENT is ET-tube in place. NECK: Supple. LUNGS: Have decreased breath sounds. HEART: Normal S1, S2. ABDOMEN: Soft, nontender. LABORATORY DATA: Laboratory examination reveals a white count of 6, hemoglobin of 10, platelets of 170. Chemistries reveals a BUN of 20, creatinine of 0.9. LFTs are elevated, but improving. Procalcitonin is 4.37 from 03/20/2018. Urinalysis is noted. Microbiology reveals E. coli in the urine. The blood cultures are negative. Nasal MRSA is negative. The sputum culture is pending. Review of the orders reveals the patient to be on amiodarone and doxycycline IV. Urine for Legionella antigen is pending. The patient is also on meropenem and Solu-Medrol. ASSESSMENT AND PLAN: A 58-year-old female with severe sepsis with ventilatory-dependent respiratory failure due to a extended-spectrum beta-lactamase Escherichia coli urinary tract infection, must rule out healthcare-associated pneumonia with possible gram-positive cocci, possible gram-negative aydee with status post treatment with Zyvox, doxycycline and meropenem, day #6. The Zyvox was discontinued yesterday when the methicillin-resistant Staphylococcus aureus screen is negative. The patient does have an elevated procalcitonin. Today is day #6 of meropenem and doxycycline, would complete 4-7 days. Overall prognosis is quite poor. Dallin Glynn MD
--- NOTE | 2018-03-24 09:18 | PN ---
Copied To: Shauna De La Rosa MD Attending MD: Shauna De La Rosa MD DATE: 03/24/2018 ENDO FOLLOWUP NOTE LOCATION: In CCU 129, room 5. SUBJECTIVE: This is a 58-year-old female with recent acute respiratory failure and currently endotracheally intubated and remains unresponsive and is now being followed closely for metabolic management. She also has recent bouts of ventricular tachycardia, currently on amiodarone and lidocaine infusions as given. Her glycemic levels are fluctuating as noted and the chemistries today showed a BUN of 20, sodium 139, potassium 4.5, chloride 108, CO2 of 24, glucose 323 and creatinine 0.9. So at this time, we will hold off the basal insulin therapy as previously given and continue the low-dose correction scale using regular insulin as ordered. If hyperglycemic levels persist, then we will start her back on basal insulin therapy as indicated. The family has opted for supportive measures at this time with a DNR order in place. We will obtain serial chemistries and supplement accordingly as needed. We will follow. Shauna De La Rosa MD
[2018-03-24] MEDS: MethylPREDNISolone 40 mg Vial IVP SCH ×2 (09:48→22:28)
--- NOTE | 2018-03-24 11:29 | PN ---
Copied To: Tom Contreras DO Attending MD: Tom Contreras DO DATE: 03/24/2018 SUBJECTIVE: I saw her in the Intensive Care Unit, still on the ventilator. I believe the family made a decision that tomorrow, Sunday, they will terminally extubate her. I still think she will breathe by on her own. We will see what happens. MEDICATIONS: She is on dextrose, Diprivan, doxycycline, heparin, Lidoderm, Merrem IV, Nexterone, phenylephrine, Protonix, Solu-Medrol and Xopenex. PHYSICAL EXAMINATION: VITAL SIGNS: 98 temp, 100/55 blood pressure, 16 respiratory rate, 100% O2 sat on mechanical ventilator. HEENT: Head is atraumatic, normocephalic. HEART: Regular rate. LUNGS: Decreased breath sounds. ABDOMEN: Soft. EXTREMITIES: Mildly contracted. No edema. LABORATORY DATA: She has a 6 white count, the best it has been; 10.4 hemoglobin; 32.3 hematocrit with 170 platelets. So the white count came down. Last blood test was on 03/24/2018. She had a 139 sodium, potassium 4.5, BUN 20, creatinine 0.9, GFR is greater than 60, sugar was 323, calcium is 8.6, total bili is 0.2, AST is 127, ALT is 262, alk phos 115. All improved. Total protein is 4.5. ASSESSMENT AND PLAN: She definitely had a urinary tract infection while she was here. I will put on insulin before meals and at bedtime to help coverage elevated blood sugars. She is on dextrose and she is on Solu-Medrol and hopefully she will do well. Cyndi Aranda who has got myotonic dystrophy, sepsis, acute respiratory failure, urinary tract infection. Tom Contreras DO
[2018-03-24] MEDS: Insulin Reg-MEDIUM-Coverage SC SCH ×3 (11:30→22:28)
--- NOTE | 2018-03-24 12:20 | PN ---
Copied To: Aashish Saeed MD Attending MD: Aashish Saeed MD DATE: 03/24/2018 SUBJECTIVE: The patient is unresponsive on the ventilator with FIO2 of 40%. She continues to require phenylephrine as well as amiodarone. The patient has hypoxic respiratory failure and very poor prognosis. She is DNR at this time and was felt to have anoxic encephalopathy. PHYSICAL EXAMINATION: VITAL SIGNS: Temperature is 100.5, pulse is 98, respirations are 16 and BP is 100/55. SKIN: Warm and dry. HEENT: Head atraumatic, normocephalic. Eyes reactive to light. Ears, nose and throat seemed to be within normal limits. NECK: Supple. No JVD. No thyroid enlargement or lymph nodes. HEART: Has regular rate and rhythm. Normal S1, S2. LUNGS: Reveal bilateral rhonchi. ABDOMEN: Soft. Decreased bowel sounds. GENITALIA AND RECTAL: Deferred. MUSCULOSKELETAL: No joint deformities. EXTREMITIES: Reveal upper and lower extremity edema. NEUROLOGIC: The patient is sedated on the ventilator. LABORATORY DATA: Laboratories reveal white count of 6, hemoglobin is 10.4, hematocrit 32.3 with platelets of 170,000. Arterial blood gas reveals a pH of 7.45, pCO2 of 31, pO2 of 122. Her sodium is 139, potassium 4.5, chloride 108, CO2 of 24 with a BUN of 20, creatinine of 0.9 and a glucose of 323. Chest x-ray reveals slightly improved central pulmonary vascular congestion. However, there appears to be some residual atelectasis and/or infiltrative changes at both bases, right greater than left. Suspect small bilateral pleural effusions, right greater than left. IMPRESSION: The patient has anoxic encephalopathy with hypoxic respiratory failure requiring ventilator support. The patient is a DNR as per family. She has a history of severe chronic obstructive pulmonary disease, diabetes, hypothyroidism, multiple sclerosis and sepsis with hypotension. PLAN: We will continue with ventilator support and aggressive pulmonary toilet. The patient is on amiodarone, doxycycline, antibiotics, heparin subcu, meropenem as well as phenylephrine. She will continue with the Protonix and Solu-Medrol and we will continue to treat aggressively along with the other consultants and the primary care doctor. Aashish Saeed MD
[2018-03-24] MEDS ORDERED: Magnesium 2 gm/50 ml NS 2 GM/50 ML BAG IVPB ONE ×2 (23:20→23:22)
[2018-03-25] MEDS: Levalbuterol 1.25 MG/3 ML Inhal Soln UD IH SCH ×2 (02:17→07:06)
[2018-03-25] MEDS: Insulin Reg-MEDIUM-Coverage SC SCH (08:19)
--- NOTE | 2018-03-25 08:43 | PN ---
Copied To: Tom Contreras DO Attending MD: Tom Contreras DO DATE: 03/25/2018 SUBJECTIVE: She is in the Intensive Care Unit on the ventilator. I understand family wants to terminally extubate her today. She is on Ativan, dextrose, Diprivan, doxycycline, heparin, insulin lidocaine, Merrem IV, Nexterone, phenylephrine, Protonix, Solu-Medrol and Xopenex. PHYSICAL EXAMINATION: VITAL SIGNS: 99.1 temp, 147 pulse, 79/47 blood pressure, 100% O2 sat on 40% ventilator. HEENT: Head is atraumatic, normocephalic. HEART: Regular rate. LUNGS: Decreased breath sounds. ABDOMEN: Soft. EXTREMITIES: No edema. LABORATORY DATA: 6 white count, 10.4 hemoglobin, 170 platelets yesterday. 139 sodium, potassium 4.5, sugar was 323, BUN 20, creatinine 0.9, GFR is greater than 60, sugar is 323, calcium is 8.6, AST is 127, ALT is 262, alk phos 115, all yesterday. ASSESSMENT AND PLAN: She is being seen by senior analyst market intelligence, dive supervisor, Infectious Disease, Pulmonary. We will see how she does today. The plan is to terminally extubate her. She is not responding that well and she is here with sepsis, respiratory failure, urinary tract infection and she has a history of myotonic dystrophy. Tom Contreras DO
--- NOTE | 2018-03-25 09:00 | PN ---
Copied To: Nayan Disla MD Attending MD: Nayan Disla MD DATE: 03/24/2018 PULMONARY PROGRESS NOTE SUBJECTIVE: The patient was seen and examined at bedside. I also reviewed her today's chest x-ray. Currently, she is ventilator dependent, respiratory rate of 14, FiO2 40%. PHYSICAL EXAMINATION: HEENT: Head: Normocephalic and atraumatic. NECK: Supple with no jugular vein distentions. CARDIOVASCULAR: S1, S2. No S3. Regular. PULMONARY: Diminished breath sounds at right lung base with no rhonchi, rales or wheezing. GASTROINTESTINAL: Soft, nontender. No organomegaly. GENITOURINARY: Deferred. EXTREMITIES: No pedal edema. SKIN: No skin rash. NEUROLOGIC: Unable to evaluate due to sedation with propofol. DIAGNOSTIC DATA: Chest x-ray revealed right-sided lower lobe atelectasis and pleural effusion. ASSESSMENT: 1. Acute respiratory failure. 2. Status post cardiopulmonary resuscitation. 3. Probable anoxic encephalopathy. 4. Ventricular tachycardia. 5. Multiple sclerosis. PLAN: Patient is remaining ventilator dependent. No attempts were made to wean her off the ventilator. I discussed the situation with ICU team and the clergy member. Continuing evaluation for possible anoxic encephalopathy ongoing. We will keep on current ventilator settings. Nayan Disla MD
[2018-03-25 09:33] VITALS: BP 85/44
--- NOTE | 2018-03-25 09:42 | PN ---
Copied To: Venancio Mcginnis MD Attending MD: Venancio Mcginnis MD DATE: 03/25/2018 SUBJECTIVE: The patient remains on a ventilator. PHYSICAL EXAMINATION: VITAL SIGNS: Blood pressure is 97 systolic, heart rate is in the 60-70s. The elevated heart rate is due to motion artifact. NECK: Negative JVD. LUNGS: Without rales. HEART: Reveals S1 and S2. EXTREMITIES: Without edema. LABORATORY DATA: There are no laboratories drawn today. ASSESSMENT AND PLAN: The patient is currently a DNR and DNI. The patient is scheduled for terminal extubation today due to her poor prognosis. Venancio Mcginnis MD
[2018-03-25] MEDS ORDERED: Iohexol 350 MG/100 ML VIAL ONE (09:44)
[2018-03-25] MEDS ORDERED: Morphine 4 mg/ml ISec IVP STA (09:53)
[2018-03-25] MEDS ORDERED: Morphine 4 mg/ml ISec IVP PRN (09:54)
--- NOTE | 2018-03-25 10:03 | CP.CCUPN ---
<TaneshaMajor - Last Filed: 03/25/18 09:55> CCU Subjective - Physician Review Events Since Last Encounter (Free Text): Major Almendarez, PGY-1 ICU Progress Note Patient seen and examined at bedside. No acute events overnight. Extensive discussion had with family in conjunction with palliative care at bedside this morning regarding goals of care and unfortunate poor prognosis given extensive comorbidities. Per families wishes, will proceed with terminal extubation today. 12 point ROS unobtainable due to unarousable state. 03/25/18 10:03 CCU Objective - Vital Signs / Intake & Output Vital Signs (Last 4 hours): Vital Signs Temp Pulse BP Pulse Ox 03/25/18 09:03 99.0 F 100 03/25/18 09:00 99.0 F 56 L 85/44 L 100 03/25/18 08:00 99.1 F 66 79/47 L 100 03/25/18 07:00 99.1 F 112 H 97/39 L 100 03/25/18 06:00 98.8 F 48 L 86/45 L 100 Intake and Output (Last 8hrs): Intake & Output 03/24/18 03/25/18 03/25/18 22:59 06:59 14:59 Intake Total 3132.3 1150 Output Total 400 400 Balance 2732.3 750 Intake: IV 3132.3 1150 D5 550 abx 150 300 amioderone 2592 phenylephrine 228 300 Oral 0 Output: Urine 400 400 Urethral (Carrera) 400 400 Emesis 0 Other: # Bowel Movements 2 2 - Physical Exam Head: Positive for: Atraumatic Pupils: Positive for: Non-Reactive Mouth: Positive for: Dry Nose (Internal): Positive for: Normal Inspection Respiratory/Chest: Positive for: Clear to Auscultation. Negative for: Wheezes Cardiovascular: Positive for: Peripheal Pulses Present Abdomen: Negative for: Distention, Guarding Upper Extremity: Positive for: Normal Inspection, NORMAL PULSES Lower Extremity: Positive for: Normal Inspection, NORMAL PULSES Neurological: Positive for: Other (unarousable and non responsive) Psychiatric: Negative for: Alert - Medications Active Medications: Active Medications Generic Name Dose Route Start Last Admin Trade Name Freq PRN Reason Stop Dose Admin Dextrose 0 ml 03/18/18 11:22 03/22/18 12:05 Dextrose 50% Inj IV 50 ml STAT PRN Administration Hypoglycemia Protocol Protocol Heparin Sodium (Porcine) 5,000 units 03/18/18 22:00 03/25/18 06:30 Heparin SC 5,000 units Q8 GABE Administration Protocol Dextrose 1,000 mls @ 0 mls/hr 03/18/18 11:22 Dextrose 5% In Water 1000 Ml IV .Q0M PRN Hypoglycemia Protocol Protocol Per Protocol Propofol 1,000 mg in 100 mls @ 1.817 mls/hr 03/18/18 14:23 03/19/18 09:25 Diprivan IV 0 mcg/kg/min .Q24H PRN 0 mls/hr TITRATE PER MD ORDER Titration Protocol 5 MCG/KG/MIN Amiodarone HCl/Dextrose 360 mg in 200 mls @ 16.667 mls/hr 03/18/18 20:15 20:40 Nexterone 360 Mg In D5w 200 Ml (Premix) IV 16.667 mls/hr .Q12H GABE Administration Protocol 0.5 MG/MIN Phenylephrine HCl 40 mg/ 254 mls @ 38.1 mls/hr 03/19/18 07:41 03/24/18 17:57 Sodium Chloride IV 57.74 mcg/min .Q6H40M PRN 22 mls/hr TITRATE PER MD ORDER Titration Protocol 100 MCG/MIN Doxycycline Hyclate 100 mg/ 100 mls @ 100 mls/hr 03/19/18 12:45 03/24/18 22: 28 Sodium Chloride IVPB 100 mls/hr Q12 GABE Administration Protocol Lidocaine HCl/Dextrose 2,000 mg in 500 mls @ 15 mls/hr 03/20/18 17:10 08:00 Lidocaine 2 Grams In D5w IV 0 mg/min .Q24H PRN 0 mls/hr TITRATE PER MD ORDER Titration Protocol 1 MG/MIN Meropenem 50 mls @ 100 mls/hr 03/21/18 14:00 03/24/18 22:27 Merrem Iv 1 Gm Premix IVPB 03/29/18 14:01 100 mls/hr Q8 GABE Administration Protocol Insulin Human Regular 0 units 03/24/18 11:30 03/25/18 08:19 Humulin R Med SC Not Given ACHS GABE Protocol Levalbuterol HCl 1.25 mg 03/19/18 08:00 03/25/18 07:06 Xopenex IH 1.25 mg [id number] GABE Administration Lorazepam 2 mg 03/24/18 19:36 03/24/18 20:40 Ativan IVP 2 mg Q6H PRN Administration Seizure activity Protocol Methylprednisolone 40 mg 03/20/18 10:00 03/24/18 22:28 Solu-Medrol IVP 40 mg Q12 GABE Administration Pantoprazole Sodium 40 mg 03/18/18 14:45 03/24/18 09:49 Protonix Inj IVP 40 mg DAILY GABE Administration - Patient Studies Fingerstick Blood Sugar Results: 150 Assessment/Plan - Assessment and Plan (Free Text) Assessment: This is a 58 year old female with PMH of chronic respiratory insufficiency, severe COPD, DM, multiple sclerosis, myotonic dystrophy, hypothyroidism, and renal cancer presenting to the ICU for management of acute hypoxic respiratory failure requiring ventilator complicated by cardiopulmonary assist and sepsis secondary to likely UTI. Patient is DNR. Extensive discussion had with family in conjunction with palliative care at bedside this morning regarding goals of care and unfortunate poor prognosis given extensive comorbidities. Per families wishes, will proceed with terminal extubation today. <Mello Aponte - Last Filed: 03/25/18 12:12> CCU Objective - Vital Signs / Intake & Output Vital Signs (Last 4 hours): Vital Signs Temp Pulse BP Pulse Ox 03/25/18 09:03 99.0 F 100 03/25/18 09:00 99.0 F 56 L 85/44 L 100 Intake and Output (Last 8hrs): Intake & Output 03/24/18 03/25/18 03/25/18 22:59 06:59 14:59 Intake Total 3132.3 1150 Output Total 400 400 Balance 2732.3 750 Intake: IV 3132.3 1150 D5 550 abx 150 300 amioderone 2592 phenylephrine 228 300 Oral 0 Output: Urine 400 400 Urethral (Carrera) 400 400 Emesis 0 Other: # Bowel Movements 2 2 - Medications Active Medications: Active Medications Generic Name Dose Route Start Last Admin Trade Name Freq PRN Reason Stop Dose Admin Morphine Sulfate 30 mls @ 2 mls/hr 03/25/18 11:22 Morphine Certified Prosthetist/Orthotist 1 Mg/Ml IV PRN PRN R[employer]ER PER MD ORDER Protocol 2 MG/HR Lorazepam 2 mg 03/25/18 09:57 03/25/18 10:17 Ativan IVP 2 mg Q2H PRN Administration Anxiety Protocol Morphine Sulfate 4 mg 03/25/18 09:54 03/25/18 11:02 Morphine IVP 4 mg Q1H PRN Administration dyspnea Scopolamine 1 patch 03/25/18 11:30 Transderm-Scop TD Q3D GABE - Patient Studies Lab Studies: Microbiology Studies 03/23/18 07:30 Gram Stain - Final Trachasp Sputum Culture - Final No growth. Lab Studies 03/25/18 03/24/18 03/24/18 Range/Units 08:03 21:43 16:25 POC Glucose (mg/dL) 151 H 159 H 114 H (65-110) mg/dL 03/24/18 03/24/18 03/23/18 Range/Units 10:59 07:58 17:24 POC Glucose (mg/dL) 296 H 317 H 272 H (65-110) mg/dL 03/23/18 03/23/18 03/23/18 Range/Units 12:02 08:08 04:02 POC Glucose (mg/dL) 186 H 187 H 150 H (65-110) mg/dL 03/22/18 Range/Units 23:21 POC Glucose (mg/dL) 71 (65-110) mg/dL Laboratory Results - last 24 hr 03/22/18 03/23/18 03/23/18 23:21 04:02 08:08 POC Glucose (mg/dL) 71 150 H 187 H 03/23/18 03/23/18 03/24/18 12:02 17:24 07:58 POC Glucose (mg/dL) 186 H 272 H 317 H 03/24/18 03/24/18 03/24/18 10:59 16:25 21:43 POC Glucose (mg/dL) 296 H 114 H 159 H 03/25/18 08:03 POC Glucose (mg/dL) 151 H Assessment/Plan - Assessment and Plan (Free Text) Assessment: Patient seen and examined with resident, on rounds, agree with note with following additions/exceptions: Patient is 58yo female with PMHx severe COPD, DM, multiple sclerosis, myotonic dystrophy, hypothyroidism, and renal cancer admitted to MICU with cardiac arrest , resp failure, with poor neurological outcome. After extensive discussion with family, palliative care, given the extremely poor prognosis, family decided to terminally extubate patient today, and proceed with comfort care. Patient terminally extubated, comfort care measures in place.
--- NOTE | 2018-03-25 10:18 | CP.PCM.PN ---
Subjective - Date & Time of Evaluation Date of Evaluation: 03/25/18 Time of Evaluation: 10:00 - Subjective Subjective: Unresponsive, intubated , no acute changes Objective - Vital Signs/Intake and Output Vital Signs (last 24 hours): Temp Pulse Resp BP Pulse Ox 99.0 F 56 L 16 85/44 L 100 03/25/18 09:03 03/25/18 09:00 03/24/18 07:17 03/25/18 09:00 03/25/18 09:03 Intake and Output: 03/25/18 03/25/18 06:59 18:59 Intake Total 1150 Output Total 400 Balance 750 - Medications Medications: Current Medications Dextrose (Dextrose 50% Inj) 0 ml IV STAT PRN; Protocol PRN Reason: Hypoglycemia Protocol Last Admin: 03/22/18 12:05 Dose: 50 ml Heparin Sodium (Porcine) (Heparin) 5,000 units SC Q8 GABE PRN Reason: Protocol Last Admin: 03/25/18 06:30 Dose: 5,000 units Dextrose (Dextrose 5% In Water 1000 Ml) 1,000 mls @ 0 mls/hr IV .Q0M PRN; Protocol; Per Protocol PRN Reason: Hypoglycemia Protocol Propofol (Diprivan) 1,000 mg in 100 mls @ 1.817 mls/hr IV .Q24H PRN; Protocol; 5 MCG/KG/MIN PRN Reason: TITRATE PER MD ORDER Last Titration: 03/19/18 09:25 Dose: 0 mcg/kg/min, 0 mls/hr Amiodarone HCl/Dextrose (Nexterone 360 Mg In D5w 200 Ml (Premix)) 360 mg in 200 mls @ 16.667 mls/hr IV .Q12H GABE; 0.5 MG/MIN PRN Reason: Protocol Last Admin: 03/23/18 20:40 Dose: 16.667 mls/hr Phenylephrine HCl 40 mg/ (Sodium Chloride) 254 mls @ 38.1 mls/hr IV .Q6H40M PRN ; Protocol; 100 MCG/MIN PRN Reason: TITRATE PER MD ORDER Last Titration: 03/24/18 17:57 Dose: 57.74 mcg/min, 22 mls/hr Doxycycline Hyclate 100 mg/ (Sodium Chloride) 100 mls @ 100 mls/hr IVPB Q12 GABE PRN Reason: Protocol Last Admin: 03/24/18 22:28 Dose: 100 mls/hr Lidocaine HCl/Dextrose (Lidocaine 2 Grams In D5w) 2,000 mg in 500 mls @ 15 mls/ hr IV .Q24H PRN; Protocol; 1 MG/MIN PRN Reason: TITRATE PER MD ORDER Last Titration: 03/22/18 08:00 Dose: 0 mg/min, 0 mls/hr Meropenem (Merrem Iv 1 Gm Premix) 50 mls @ 100 mls/hr IVPB Q8 GABE PRN Reason: Protocol Stop: 03/29/18 14:01 Last Admin: 03/24/18 22:27 Dose: 100 mls/hr Insulin Human Regular (Humulin R Med) 0 units SC ACHS [facility] PRN Reason: Protocol Last Admin: 03/25/18 08:19 Dose: Not Given Levalbuterol HCl (Xopenex) 1.25 mg IH [id number] [facility] Last Admin: 03/25/18 07:06 Dose: 1.25 mg Lorazepam (Ativan) 2 mg IVP Q6H PRN; Protocol PRN Reason: Seizure activity Last Admin: 03/24/18 20:40 Dose: 2 mg Lorazepam (Ativan) 2 mg IVP Q2H PRN; Protocol PRN Reason: Anxiety Methylprednisolone (Solu-Medrol) 40 mg IVP Q12 [facility] Last Admin: 03/24/18 22:28 Dose: 40 mg Morphine Sulfate (Morphine) 4 mg IVP Q1H PRN PRN Reason: dyspnea Pantoprazole Sodium (Protonix Inj) 40 mg IVP DAILY [facility] Last Admin: 03/24/18 09:49 Dose: 40 mg - Labs Labs: 03/24/18 06:00 03/24/18 06:00 PT 13.1 SECONDS (9.4-12.5) H 03/18/18 10:15 INR 1.14 03/18/18 10:15 APTT 23.7 Seconds (25.1-36.5) L 03/18/18 10:15 - Constitutional Appears: No Acute Distress, Chronically Ill - Eye Exam Eye Exam: Normal appearance Additional comments: sluggish reaction - Respiratory Exam Respiratory Exam: Decreased Breath Sounds - Cardiovascular Exam Cardiovascular Exam: Tachycardia, +S1 - GI/Abdominal Exam GI & Abdominal Exam: Soft, Hypoactive Bowel Sounds - Extremities Exam Extremities Exam: Normal Capillary Refill, Pedal Edema - Neurological Exam Neurological Exam: Altered - Skin Skin Exam: Dry, Pallor Assessment and Plan - Assessment and Plan (Free Text) Assessment: 58 year old female with history of MS, myotonic dystrophy, DM, HTN who is s/o cardiopulmonary arrest, intubated,tachycardia. anoxic encephalopathy. Patient's POA , Odilia Thapa at bedside. She and I have have extensive prior discussion regarding goals of care. POA understands patients medical condition and poor prognosis. Odilia does not want to continue aggressive life support measures and has decided upon terminal extubation and comfort care. Terminal extubation process explained. Odilia in agreement with plan. Psychosocial support provided. End of life counseling End of life counseling, 50 minutes Plan: DNR/DNI Terminal extubation. Morphine, Ativan End of life counseling
[2018-03-25] MEDS ORDERED: Morphine PCA 1 mg/ml (30ml) 30 ML IV PRN ×2 (11:10→11:22)
--- NOTE | 2018-03-25 11:20 | PN ---
Copied To: Rodger Brown MD Attending MD: Rodger Brown MD DATE: 03/25/2018 PULMONARY PROGRESS NOTE SUBJECTIVE: The patient is found in the Intensive Care Unit, intubated on mechanical ventilation. Long discussion with the RN caring for the patient tells me that the patient will have a terminal extubation today. It has been her desire not to have intubation or mechanical ventilation. She has longstanding issues neurologically with multiple sclerosis, diabetes mellitus, COPD, chronic respiratory insufficiency and hypothyroidism. Arrangements were obviously made in the recent past to consider terminal extubation. PHYSICAL EXAMINATION: GENERAL: The patient is lying in bed and noncommunicative. HEENT: Normocephalic, atraumatic. Intubated. NECK: Supple. No JVD. HEART: Regular rhythm. S1, S2 without murmur, gallop or rub. LUNGS: Global decrease in breath sounds but no rales, rhonchi or wheezing appreciated. ABDOMEN: Soft. Bowel sounds normoactive without mass, guarding, rebound or organomegaly. EXTREMITIES: Reveal 1+ edema. SKIN: Shows no rash or excoriation. NEUROLOGIC: Exam, unable to evaluate further. ASSESSMENT: 1. Obtundation. 2. Respiratory failure. 3. Chronic obstructive pulmonary disease. 4. Multiple sclerosis. 5. Diabetes mellitus. 6. Hypothyroidism. 7. Sepsis syndrome. PLAN: As described above, the patient will be terminally extubated today according to the RN and ICU team. We will be available if any further intervention is required. She is status post CPR at this time. We will follow closely and decide on her intention to do no further intervention. We will follow closely with you as required. Thank you for the opportunity to should take care for this patient. Rodger Brown MD MTDD
--- NOTE | 2018-03-25 12:33 | CP.PCM.PN ---
Subjective - Date & Time of Evaluation Date of Evaluation: 03/25/18 Time of Evaluation: 09:30 - Subjective Subjective: Continues to be on the ventilator, no fevers overnight, no diarrhea. Objective - Vital Signs/Intake and Output Vital Signs (last 24 hours): Temp Pulse Resp BP Pulse Ox 99.0 F 56 L 16 85/44 L 100 03/25/18 09:03 03/25/18 09:00 03/24/18 07:17 03/25/18 09:00 03/25/18 09:03 Intake and Output: 03/25/18 03/25/18 06:59 18:59 Intake Total 1150 Output Total 400 Balance 750 - Medications Medications: Current Medications Dextrose (Dextrose 50% Inj) 0 ml IV STAT PRN; Protocol PRN Reason: Hypoglycemia Protocol Last Admin: 03/22/18 12:05 Dose: 50 ml Heparin Sodium (Porcine) (Heparin) 5,000 units SC Q8 GABE PRN Reason: Protocol Last Admin: 03/25/18 06:30 Dose: 5,000 units Dextrose (Dextrose 5% In Water 1000 Ml) 1,000 mls @ 0 mls/hr IV .Q0M PRN; Protocol; Per Protocol PRN Reason: Hypoglycemia Protocol Propofol (Diprivan) 1,000 mg in 100 mls @ 1.817 mls/hr IV .Q24H PRN; Protocol; 5 MCG/KG/MIN PRN Reason: TITRATE PER MD ORDER Last Titration: 03/19/18 09:25 Dose: 0 mcg/kg/min, 0 mls/hr Amiodarone HCl/Dextrose (Nexterone 360 Mg In D5w 200 Ml (Premix)) 360 mg in 200 mls @ 16.667 mls/hr IV .Q12H GABE; 0.5 MG/MIN PRN Reason: Protocol Last Admin: 03/23/18 20:40 Dose: 16.667 mls/hr Phenylephrine HCl 40 mg/ (Sodium Chloride) 254 mls @ 38.1 mls/hr IV .Q6H40M PRN ; Protocol; 100 MCG/MIN PRN Reason: TITRATE PER MD ORDER Last Titration: 03/24/18 17:57 Dose: 57.74 mcg/min, 22 mls/hr Doxycycline Hyclate 100 mg/ (Sodium Chloride) 100 mls @ 100 mls/hr IVPB Q12 GABE PRN Reason: Protocol Last Admin: 03/24/18 22:28 Dose: 100 mls/hr Lidocaine HCl/Dextrose (Lidocaine 2 Grams In D5w) 2,000 mg in 500 mls @ 15 mls/ hr IV .Q24H PRN; Protocol; 1 MG/MIN PRN Reason: TITRATE PER MD ORDER Last Titration: 03/22/18 08:00 Dose: 0 mg/min, 0 mls/hr Meropenem (Merrem Iv 1 Gm Premix) 50 mls @ 100 mls/hr IVPB Q8 GABE PRN Reason: Protocol Stop: 03/29/18 14:01 Last Admin: 03/24/18 22:27 Dose: 100 mls/hr Insulin Human Regular (Humulin R Med) 0 units SC ACHS [facility] PRN Reason: Protocol Last Admin: 03/25/18 08:19 Dose: Not Given Levalbuterol HCl (Xopenex) 1.25 mg IH [id number] [facility] Last Admin: 03/25/18 07:06 Dose: 1.25 mg Lorazepam (Ativan) 2 mg IVP Q6H PRN; Protocol PRN Reason: Seizure activity Last Admin: 03/24/18 20:40 Dose: 2 mg Lorazepam (Ativan) 2 mg IVP Q2H PRN; Protocol PRN Reason: Anxiety Methylprednisolone (Solu-Medrol) 40 mg IVP Q12 [facility] Last Admin: 03/24/18 22:28 Dose: 40 mg Morphine Sulfate (Morphine) 4 mg IVP Q1H PRN PRN Reason: dyspnea Pantoprazole Sodium (Protonix Inj) 40 mg IVP DAILY [facility] Last Admin: 03/24/18 09:49 Dose: 40 mg - Labs Labs: 03/24/18 06:00 03/24/18 06:00 PT 13.1 SECONDS (9.4-12.5) H 03/18/18 10:15 INR 1.14 03/18/18 10:15 APTT 23.7 Seconds (25.1-36.5) L 03/18/18 10:15 - Constitutional Appears: Chronically Ill, Other (intubated, not responsive) - Head Exam Head Exam: NORMAL INSPECTION - ENT Exam Additional comments: ET tube in place - Respiratory Exam Respiratory Exam: Decreased Breath Sounds - Cardiovascular Exam Cardiovascular Exam: +S1, +S2 - GI/Abdominal Exam GI & Abdominal Exam: Soft. absent: Tenderness Assessment and Plan - Assessment and Plan (Free Text) Plan: Assessment severe sepsis with VDRF due to urinary tract infection with ESBL E. coli, R/O HCAP with possible gram positive cocci or gram negative bacilli or atypical organisms history of acute bronchitis history of asymptomatic bacteriuria with gram negative bacilli history of sepsis secondary to E. coli urinary tract infection, bilateral healthcare-associated pneumonia history of myotonic dystrophy hypothyroidism history of tracheostomy and PEG tube placement S/P ileostomy Anal cancer S/P resection Plan continue Merrem and Doxycycline day 7 - will continue to monitor clinically overall prognosis is poor as discussed with Dr. Contreras, patient is for terminal extubation today
--- NOTE | 2018-03-25 12:40 | CP.PCM.PRO ---
Pronouncement of Note - Clinical Findings Physical Exam: No Response Verbal/Painful Stimuli, Absent Peripheral Pulses{ Carotid & Femoral}, Absent Heart & Breath Sounds, No Pupillary Light Reflex, No Corneal Reflex, Pupils Fixed & Dilated, Absence of Vital Signs - Pronouncement Time Time of Pronouncement of : 12:32 - Notifications Pronouncement Notifications: Family Notified, Atending Notified Typewriter Repairer Notified: No - Autopsy Autopsy Requested: No - [place] [id number]
[2018-03-25 12:45] VITALS: PULSE 26; RESP 6; TEMP 97.5; O2SAT 46
--- NOTE | 2018-03-25 14:58 | PN ---
Copied To: Shauna De La Rosa MD Attending MD: Shauna De La Rosa MD DATE: 03/25/2018 ENDO FOLLOWUP NOTE LOCATION: In CCU 129, room 5. SUBJECTIVE: This is a 58-year-old female with recent acute respiratory failure and remains unresponsive and intubated at this time and is being followed closely for metabolic management. She also has recent bouts of ventricular tachycardia and was placed initially on amiodarone and lidocaine infusions given, which have just been discontinued as noted. Her glycemic levels are fluctuating, but improved and the glucose values have ranged from 151-159 mg/dL. Her chemistry showed a BUN of 20, sodium 139, potassium 4.5, chloride 108, CO2 of 24, glucose 323 and creatinine 0.9. She is clinically and metabolically and hemodynamically deteriorated at this time and is currently DNR as per the family's request. We will sign off from the endocrine care. Shauna De La Rosa MD
== END 2018-03-25 12:32 | DRG 870 ==
LOC: ED 09:55 → ERH 12:04 → CCU 12:55
PROVIDERS: ADMIT Family Medicine; ATTEND Family Medicine
PROC: 5A1955Z Respiratory Ventilation, Greater than 96 Consecutive Hours (ICD-10-PCS; principal; 2018-03-18)
PROC: 04HK33Z Insertion of Infusion Device into Right Femoral Artery, Percutaneous Approach (ICD-10-PCS; 2018-03-18)
PROC: 05HM33Z Insertion of Infusion Device into Right Internal Jugular Vein, Percutaneous Approach (ICD-10-PCS; 2018-03-18)
PROC: B543ZZA Ultrasonography of Right Jugular Veins, Guidance (ICD-10-PCS; 2018-03-18)
PROC: 3E03328 Introduction of Oxazolidinones into Peripheral Vein, Percutaneous Approach (ICD-10-PCS; 2018-03-18)
DX: A41.9 Sepsis, unspecified organism (principal); J96.01 Acute respiratory failure with hypoxia; G92 Toxic encephalopathy; J18.9 Pneumonia, unspecified organism; R65.21 Severe sepsis with septic shock; I47.2 Ventricular tachycardia; N39.0 Urinary tract infection, site not specified; Z99.11 Dependence on respirator [ventilator] status; G93.1 Anoxic brain damage, not elsewhere classified; J44.1 Chronic obstructive pulmonary disease with (acute) exacerbation; J44.0 Chronic obstructive pulmonary disease with (acute) lower respiratory infection; G71.11 Myotonic muscular dystrophy; G35 Multiple sclerosis; E11.65 Type 2 diabetes mellitus with hyperglycemia; I10 Essential (primary) hypertension; E03.9 Hypothyroidism, unspecified; B96.20 Unspecified Escherichia coli [E. coli] as the cause of diseases classified elsewhere; E87.6 Hypokalemia; Z66 Do not resuscitate; Z51.5 Encounter for palliative care; Y95 Nosocomial condition; E78.5 Hyperlipidemia, unspecified; Z79.4 Long term (current) use of insulin; Z91.19 Patient's noncompliance with other medical treatment and regimen; Z85.048 Personal history of other malignant neoplasm of rectum, rectosigmoid junction, and anus; Z92.21 Personal history of antineoplastic chemotherapy; Z91.14 Patient's other noncompliance with medication regimen